=== PATIENT | male | born 1960 | race Caucasian/White ===

== ENCOUNTER 2018-04-03 00:38 | Outpatient (CLI) | payer MEDICARE, SELFPAY ==
--- NOTE | 2018-04-03 08:15 | MERGEMPI_ITS ---
*[facility]* *[facility]* [address] [place] [address] Myocardial Perfusion Imaging - SPECT Regadenoson Date of study: 04/03/2018 *PATIENT PRESENTATION* Height: 182.9cm (72in) Blood Pressure: Weight: 137.7kg (303lb) BSA: 2.7m^2 Referring physician: Atif Clark Ordering physician: Андрей Coello Impressions: Normal myocardial perfusion and contraction after pharmacological stress. Summary: 1. Myocardial perfusion imaging: The left ventricle is mildly dilated. No myocardial perfusion defects noted. 2. The left ventricular end-systolic volume is 79ml. The calculated left ventricular ejection fraction after stress: 50%. LV global systolic function is low normal. No left ventricular regional motion abnormality. Indication: R07.9. History: REASON FOR VISIT: PT WAS SEEN LAST SUNDAY BY HIS PCP DR COELLO FOR CHEST HEAVINESS AND POUNDING IN HIS CHEST HE DESCRIBES SOME RADIATION UP INTO HIS NECK AND PAIN IN HIS LEFT ARM. CHEST HEAVINESS ALSO ASSOCIATED WITH SOB, NAUSEA AND DIAPHOROSIS. CHEST HEAVINESS HAS OCCURED WITH ACTIVITY AND AT REST. ONE EPISODE PT DID TAKE 1 NITRO SL AND ACHIEVED SOME RELIEF. PATIENT HAS SIGNIFICANT CORONARY ARTERY DISEASE WITH STENTING OF HIS RCA IN 1999 AND AGAIN IN 2010. HIS LAST CARDIAC CATHETERIZATION WAS DONE IN 2012. Risk factors: FATHER IN HIS EARLY 60'S FROM A MASSIVE HEART ATTACK. Family history of coronary artery disease. Hypertension. Diabetes mellitus. Obesity. Dyslipidemia. Cholesterol: 138mg/dl. HDL: 40mg/dl. LDL: 82mg/dl. Triglycerides: 161mg/dl. ALLERGIES: NIGEL INHIBITORS. CODEINE. GABAPENTIN. LISINOPRIL. MEDICATIONS: ACETAMINOPHEN 500 MG DAILY. JARDIANCE 25 MG DAILY. GLIPIZIDE 10 MG DAILY. VITAMIN D 1000 UNITS DAILY. METOPROLOL TARTRATE 50 MG BID. AMLODIPINE BESYLATE 10 MG DAILY. ASPIRIN 325 MG DAILY. METFORMIN HCL ER 500 MG BID. LEVOTHYROXINE 25 MCG DAILY. PAROXETINE HCL 30 MG DAILY. NITROSTAT 0.4 MG SL PRN. Imaging Technique: Protocol: [employer]. Acquisition: Gated SPECT; 1 day - rest/stress. The patient was imaged in the supine position. Attenuation correction used. Isotope administration: - Rest. Tc[99m]-sestamibi. Dose: 15.5mCi. Injection time: 08:20 AM. Injection to stress time: 00:45. - Stress. Tc[99m]-sestamibi. Dose: 46mCi. Injection time: 09:55 AM. 1-2 min before end of exercise Baseline ECG: SINUS BRADYCARDIA. 1 DEGREE AV BLOCK. MO 0.22 SECONDS. HR 57 BPM. Normal sinus rhythm with 1degrees AV block. Stress protocol: +--------+--+ +---------+ + !Stage !HR!BP (mmHg) !Symptoms !Comments ! +--------+--+ +---------+ + !Baseline!57!124/72 (89)!---------! ! +--------+--+ +---------+ + !1 min !77!126/70 (89)!---------!Inject Regadenoson.! +--------+--+ +---------+ + !2 min !--! !Nausea ! ! +--------+--+ +---------+ + !3 min !73!134/72 (93)!---------! ! +--------+--+ +---------+ + !4 min !--! !Subsiding! ! +--------+--+ +---------+ + !5 min !--! !Resolved ! ! +--------+--+ +---------+ + !6 min !67!116/66 (83)!---------! ! +--------+--+ +---------+ + * Stress results: The rate-pressure product for the peak heart rate and blood pressure was 9782mm Hg/min. Stress ECG: STRESS TEST ENDED IN 6 MINUTES & 45 SECONDS. PATIENT EXPERIENCED NOT SIDE EFFECTS FROM LEXISCAN INJECTION. NORMAL HEART RATE AND BLOOD PRESSURE RESPONSE TO LEXISCAN INJECTION NO ECTOPY NO ANGINA NO SIGNIFICANT ST SEGMENT CHANGES. Myocardial perfusion: Imaging information: gated. The image quality was good. The left ventricle is mildly dilated. No myocardial perfusion defects noted. Ventricular Function (Wall Motion): The left ventricular end-systolic volume is 79ml. The calculated left ventricular ejection fraction after stress: 50%. LV global systolic function is low normal. No left ventricular regional motion abnormality. Study data: Atif Clark MD supervised and was readily available during the procedure. This study was interpreted by [facility]. Study status: Routine. Consent: The risks, benefits, and alternatives to the procedure were explained to the patient and informed consent was obtained. Procedure: Initial setup. A baseline ECG was recorded. Surface ECG leads and manual cuff blood pressure measurements were monitored. Heart sounds: Normal. Lung sounds: Normal. Regadenoson stress test. Stress testing was performed, with regadenoson by intravenous bolus, for a total dose of 0.4mgover 10.00sec, followed by a 5ml saline flush. The infusion was terminated due to per protocol. Study completion: All catheters inserted during the procedure were removed. The patient tolerated the procedure well and was discharged from the lab. Discharge: The patient left the laboratory in stable condition. Birthdate: Patient birthdate: 1960. Sex: Gender: male. Study date: Study date: 04/03/2018. Study time: 12:30 PM. Signature Documentation: - The imaging portion of this study was interpreted by Nuclear Earth Boring Machine Operator Atif Clark MD. - The imaging portion of this study was interpreted by Nuclear Radiologist Mariano Mccall MD. - The Stress ECG portion of this study was interpreted by Atif Clark MD. Electronically signed by Atif Clark 04/03/2018 13:22
== END 2018-04-03 00:58 ==
PROVIDERS: PCP Internal Medicine; Visit Provider Family Medicine
DX: R07.9 Chest pain, unspecified (principal); I25.10 Atherosclerotic heart disease of native coronary artery without angina pectoris; Z95.5 Presence of coronary angioplasty implant and graft; I10 Essential (primary) hypertension; E11.9 Type 2 diabetes mellitus without complications; E78.5 Hyperlipidemia, unspecified; Z82.49 Family history of ischemic heart disease and other diseases of the circulatory system
CPT/HCPCS: 78452; 93016; 93018; 93017

== ENCOUNTER → 2018-05-09 09:12 | Outpatient (BNVA) | payer MEDICARE, SELFPAY | PROVIDERS: PCP Internal Medicine; Visit Provider Internal Medicine Cardiovascular Disease | DX: I25.10 Atherosclerotic heart disease of native coronary artery without angina pectoris (principal); Z95.818 Presence of other cardiac implants and grafts; I10 Essential (primary) hypertension; E11.9 Type 2 diabetes mellitus without complications; Z79.84 Long term (current) use of oral hypoglycemic drugs; E78.5 Hyperlipidemia, unspecified | CPT/HCPCS: 99214 ==

== ENCOUNTER 2018-06-16 10:06 | Emergency (ER) | payer MEDICARE, SELFPAY ==
[2018-06-16 10:23] VITALS: BP 144/79; PULSE 66; RESP 16; TEMP 36.3; O2SAT 97
--- NOTE | 2018-06-16 10:43 | DI.CT_ITS ---
SYMPTOM/DIAGNOSIS: FALL, HEADACHE NONCONTRAST HEAD CT: No intracranial hemorrhage or skull fracture is seen. There is mild atrophy. The ventricles are normal in size. There are mild patches of the white matter consistent with small vessel disease. The visualized portions of the sinuses and mastoid air cells appear clear. IMPRESSION: No acute abnormality. CT CERVICAL SPINE: There is no evidence of fracture or subluxation. The exam is somewhat limited by the patient's body habitus. There are degenerative disc changes raised at C5-6, and C6-7. There is bilateral neuroforaminal narrowing at C6-7. IMPRESSION: Degenerative changes. No acute abnormality.
--- NOTE | 2018-06-16 10:43 | DI.RAD_ITS ---
SYMPTOM/DIAGNOSIS: FALL LUMBAR SPINE: The exam is limited by the patient's body habitus. There is a transitional type vertebral body at the lumbosacral junction. There are prominent end plate osteophytes. No fracture, spondylolysis or spondylolisthesis seen. IMPRESSION: Degenerative changes. No acute abnormality.
--- NOTE | 2018-06-16 10:43 | DI.RAD_ITS ---
SYMPTOM/DIAGNOSIS: FALL PELVIS AND LEFT HIP: No fracture or dislocation is seen. There is bilateral acetabular spurring, left greater than right. Hip joint spaces are well maintained. Degenerative changes are noted in the lower lumbar spine and both SI joints. IMPRESSION: Degenerative changes. No acute abnormality.
[2018-06-16] MEDS: Acetaminophen 500 MG TAB 1000 MG PO (10:52)
[2018-06-16] MEDS: Loperamide 2 MG CAP PO (10:53)
--- NOTE | 2018-06-16 11:11 | W.ED.GENAD ---
Discharge Plan Disposition Patient Disposition: HOME Condition: Stable Discharge Details Chief Complaint: HeadInjury Clinical Impression: Concussion, Contusion of multiple sites Primary Care Provider: Андрей Coello ED Provider: Marlon Pond Home Meds and New Rx's Prescriptions: New oxycodone-acetaminophen [Percocet] 5-325 mg tablet 1 tab PO Q6H PRN (Reason: pain) Qty: 10 RF: 0 Continue fluocinonide-emollient [Fluocinonide-E] 60 GM cream 60 gm Topical PRN PRNQty: 1 RF: 0 levothyroxine 25 MCG tablet 25 mcg PO DAILY RF: 0 atorvastatin 80 MG tablet 80 mg PO DAILY Qty: 90 RF: 2 amlodipine 10 MG tablet 10 mg PO DAILY Qty: 60 RF: 2 metoprolol tartrate 50 MG tablet 50 mg PO BID RF: 0 nitroglycerin [Nitrostat] 0.4 MG tablet, sublingual 0.4 mg Sublingual PRN PRNRF: 0 paroxetine HCl [Paxil CR] 37.5 MG tablet extended release 24 hr 37.5 mg PO QAM RF: 0 metformin 500 MG tablet extended release 24 hr 1,000 mg PO BID RF: 0 aspirin 325 MG tablet 325 mg PO DAILY RF: 0 docusate sodium [Colace] 100 MG capsule 100 mg PO BID Qty: 60 RF: 0 acetaminophen [Tylenol Extra Strength] 500 mg Tablet 500 mg PO Q8H PRN PRNRF: 0 tamsulosin [Flomax] 0.4 mg Capsule 0.4 mg PO DAILY RF: 0 cholecalciferol (vitamin D3) [Vitamin D3] 1,000 unit Capsule 1,000 unit PO DAILY RF: 0 Discharge Instructions Instructions: Concussion (ED), Contusion in Adults (ED) Additional Instructions: Feel free to return to the emergency department for any new or significant worsening of symptoms. Otherwise take your medication as prescribed and follow-up with your primary care provider for reassessment. It is important that you get plenty of rest and reduce any strenuous activities over the next couple days and then slowly advance activity as tolerated. If any activity causes headaches return to rest again Referrals: Андрей Coello [Primary Care Provider] - (Keep your appointment as previously scheduled) Discharge Data Discharge Date/Time-TO BE ENTERED AT DEPARTURE: 06/16/18 12:40 Medical Decision Making Patient presenting to the emergency department for chief complaint of headache and back pain after a fall. Patient states approximately 3 days ago he slipped and fell landing on his left hip, back, and striking his head. He states since then he has had intermittent dizziness, tinnitus, left frontal headache, and some photophobia. He does state some nausea, and today developed a little diarrhea which he states he has had in the past. Physical exam does show some tenderness to the lumbar spine and left hip without specific step-off or deformity and otherwise normal neurological exam except for some photophobia and pain elicited with left lateral gaze to the left eye. Plan to check CT imaging of the head for rule out of intracranial hemorrhage and plain film imaging of the lumbar spine left hip and pelvis. Pending results patient given acetaminophen and patient is requesting Imodium for diarrhea. Patient denies any abdominal pain fever chills so I do not feel that any abdominal workup is needed at this time but will continue to monitor. Pending results patient continued had discomfort and so gave patient ibuprofen and lidocaine patch . Review of results that shows no intracranial abnormality, no no cervical fracture, no other findings of the lumbar spine hip or pelvis. Patient was reassessed and continues remained stable with no new or worsening symptoms. Given this I feel the patient has concussion with multiple contusions. Disc discussed risk versus benefit of pain medication therapy which patient states ibuprofen did not help either. Patient did receive limited supply of narcotic pain medication and he states he has follow-up appointment with his primary care provider in approximately 1 week. Patient was encouraged to return for any new or significant worsening of his symptoms. After discussion of diagnosis and plan of care patient has no further needs, questions, or concerns and states clear understanding to return to the emergency department for any worsening symptoms. HPI General Mode of arrival: ambulatory. Date/Time Provider Initiated Documentation: 06/16/18 10:25. Limitations to Documentation: no limitations. Information obtained by: patient and RN notes reviewed. History of Present Illness 58 year old M presents to the emergency department with the chief complaint of Fall with headache and back pain, described as moderate, Quality is described as aching and sharp, and is localized to the head and back. Patient started experiencing this day(s) (3) and it has been constant. No relieving factors improve symptom(s), Movement worsens symptoms . Patient did receive the following treatments prior to arrival, none Related Data Home Medications Medication Instructions Recorded Confirmed metoprolol tartrate 50 mg PO BID 12/22/12 06/16/18 nitroglycerin [Nitrostat] 0.4 mg SUBLINGUAL PRN PRN 12/22/12 06/16/18 paroxetine HCl [Paxil CR] 37.5 mg PO QAM 12/22/12 06/16/18 fluocinonide-emollient 60 gm TOPICAL PRN PRN #1 script 05/21/13 06/16/18 [Fluocinonide-E] metformin 1,000 mg PO BID 05/20/14 06/16/18 aspirin 325 mg PO DAILY 09/18/14 06/16/18 docusate sodium [Colace] 100 mg PO BID #60 cap 02/03/15 06/16/18 levothyroxine 25 mcg PO DAILY tab-cap 02/25/15 06/16/18 amlodipine 10 mg PO DAILY #60 tab-cap 05/04/17 06/16/18 atorvastatin 80 mg PO DAILY #90 tab-cap 05/04/17 06/16/18 acetaminophen [Tylenol Extra 500 mg PO Q8H PRN PRN 06/16/18 06/16/18 Strength] cholecalciferol (vitamin D3) 1,000 unit PO DAILY 06/16/18 06/16/18 [Vitamin D3] oxycodone-acetaminophen [Percocet] 1 tab PO Q6H PRN #10 tab 06/16/18 tamsulosin [Flomax] 0.4 mg PO DAILY 06/16/18 06/16/18 Previous Rx's Medication Instructions Recorded docusate sodium [Colace] 100 mg PO BID #60 cap 02/03/15 amlodipine 10 mg PO DAILY #60 tab-cap 05/04/17 atorvastatin 80 mg PO DAILY #90 tab-cap 05/04/17 oxycodone-acetaminophen [Percocet] 1 tab PO Q6H PRN #10 tab 06/16/18 Allergies Allergy/AdvReac Type Severity Reaction Status Date / Time NIGEL Inhibitors AdvReac Cough Unverified 06/16/18 10:27 codeine AdvReac Nausea Unverified 06/16/18 10:27 gabapentin AdvReac vision Unverified 06/16/18 10:27 trouble, dizzy,nausea lisinopril AdvReac cough Unverified 06/16/18 10:27 General Stated Complaint: HeadInjury TIFFANI: 3 Review of Systems Constitutional Denies fever(s), Denies frequent falls, Reports headache(s) and Denies poor appetite Eyes Denies loss of vision ENT Reports dizziness and Reports headache(s) Cardiovascular Denies chest pain, Denies syncope, Denies irregular heart rhythm and Denies dyspnea Respiratory Denies dyspnea Gastrointestinal Reports diarrhea, Reports nausea and Denies vomiting Musculoskeletal Reports as per HPI, Denies abnormal gait, Denies numbness and Denies tingling Neurologic Reports as per HPI, Denies abnormal movements, Denies abnormal speech, Denies abnormal gait, Reports dizziness, Denies syncope, Denies frequent falls, Reports headache(s), Denies loss of vision, Denies memory loss, Denies numbness and Denies tingling Psychiatric Denies memory loss PFSH Family History Father Heart disease Medical History CAD (coronary artery disease) Chronic back pain Diabetes mellitus Hyperlipidemia Hypertension WILLIS (obstructive sleep apnea) Spinal stenosis Social History Smoking/Tobacco Use Status: Former Tobacco Use Surgical History Colonoscopy - MAC Coronary Stent Exam Const General: cooperative and no acute distress Nutritional Appearance: overweight Orientation: alert, awake and oriented x3 Limitations: mental status not altered [facility] Head: normal to inspection, no palpable skull fracture, normocephalic and atraumatic Ears: hearing grossly normal bilaterally, external ears normal and TM's normal bilaterally General nose exam: external nose normal Face and sinus: normal facial exam Mouth: oral mucosae normal, lip normal and tongue normal Throat: posterior oropharynx normal, tonsils normal and uvula midline Eyes General: appearance normal, both eyes and all related structures Visual Nguyen: normal visual nguyen by confrontation Alignment and Position: alignment normal Periorbital: periorbital findings normal Eyelids: eyelids normal Conjunctivae: conjunctivae normal Cornea: corneas normal Pupils: PERRL, normal by confrontation and accommodation normal EOM: EOM intact bilaterally (Discomfort is noted with left lateral in the left eye. ) Direct ophthalmoscopy: consensual photophobia Neck Neck: normal visual inspection, full ROM, trachea midline and nontender Resp Effort & Inspection: normal respiratory effort and able to speak in complete sentences Cardio Rate: regular rate Rhythm: regular rhythm Heart Sounds: S1 normal, S2 normal, no click, no gallops, no murmurs and no rubs Back/Spine/Pelvis Cervical Spine: normal cervical lordosis, cervical ROM normal, No pain with cervical ROM and No step off deformity Thoracic/Lumbar Spine: paraspinal tenderness (Left lumbar), lumbar spinal tenderness and other (Mild ecchymosis seen to mid lumbar) Pelvis: no pain with anterior-posterior compression and no pain with lateral compression Neuro General: alert, awake, oriented x3, gait normal, tone normal, moves all extremities, normal light touch, pain and propioception, no meningeal signs, no focal motor deficits and CN's II-XI intact bilaterally Cognition: normal cognition Speech: speech normal Motor: muscle tone normal throughout Coordination: Romberg test normal and Does not sway with eyes open Course Vital Signs Temperature 36.3 C L 06/16/18 10:23 Pulse 66 06/16/18 10:23 Respiratory Rate 16 06/16/18 10:23 Blood Pressure 144/79 H 06/16/18 10:23 Pulse Oximetry 97 06/16/18 10:23 Temperature 36.3 C L 06/16/18 10:23 Temperature Source Temporal Artery Scan 06/16/18 10:23 Pulse 66 06/16/18 10:23 Respiratory Rate 16 06/16/18 10:23 Respiratory Effort Non-Labored 06/16/18 10:26 Blood Pressure 144/79 H 06/16/18 10:23 Blood Pressure Position Sitting 06/16/18 10:23 Pulse Oximetry 97 06/16/18 10:23 Oxygen Delivery Method Room Air 06/16/18 10:23 Oxygen Flow Rate 0 06/16/18 10:23 Pain Level 4 06/16/18 10:23
--- NOTE | 2018-06-16 11:46 | DI.VRAD_ITS ---
EXAM: CT Head Without Intravenous Contrast EXAM DATE/TIME: 06/16/2018 10:46 AM CLINICAL HISTORY: 58 years old, male; Pain and injury or trauma; Fall; Initial encounter; Blunt trauma (contusions or hematomas); Consciousness not specified; Headache; Headache not specified; Neck pain TECHNIQUE: Axial computed tomography images of the head/brain without intravenous contrast. Coronal and sagittal reformatted images were created and reviewed. COMPARISON: MRI - BRAIN WO CONTRAST 07/17/2012 7:08 PM FINDINGS: Brain: Normal. No hemorrhage. No significant white matter disease. No edema. Ventricles: Normal. No ventriculomegaly. Bones/joints: Normal. No acute fracture. Sinuses: Normal as visualized. No acute sinusitis. Mastoid air cells: Normal as visualized. No mastoid effusion. Soft tissues: Normal. IMPRESSION: No evidence for acute intracranial abnormality. EXAM: CT Cervical Spine Without Intravenous Contrast EXAM DATE/TIME: 06/16/2018 10:46 AM CLINICAL HISTORY: 58 years old, male; Pain and injury or trauma; Fall; Initial encounter; Blunt trauma (contusions or hematomas); Consciousness not specified; Headache; Headache not specified; Neck pain TECHNIQUE: Axial computed tomography images of the cervical spine without intravenous contrast. Coronal and sagittal reformatted images were created and reviewed. COMPARISON: MRI - BRAIN WO CONTRAST 07/17/2012 7:08 PM. Report unavailable. FINDINGS: Vertebrae: No acute fracture. Normal alignment. Discs/Spinal canal/Neural foramina: Cervical spondylosis with lower cervical stenosis. Soft tissues: Unremarkable. Lungs: Lung apices are normal. Vasculature: Bilateral calcified carotid plaque. IMPRESSION: No evidence for fracture. Spondylosis with lower cervical stenosis. COMMENT: Preliminary interpretation is based on receipt of 991 image(s). A final report will be issued subsequently. Dictated and Authenticated by: Leia White MD. Ordering:JOHN HEMPHILL MD
--- NOTE | 2018-06-16 11:48 | DI.VRAD_ITS ---
EXAM: XR Left Hip with Pelvis when Performed, 2 or 3 Views EXAM DATE/TIME: 06/16/2018 10:46 AM CLINICAL HISTORY: 58 years old, male; Pain and injury or trauma; Fall; Initial encounter; Blunt trauma (contusions or hematomas); Left; Hip; Hip pain; Left hip TECHNIQUE: XR Left hip with pelvis when performed, 2 or 3 views COMPARISON: No relevant prior studies available. FINDINGS: Bones/joints: Mild lower lumbar spondylosis. Bony alignment is anatomic without evidence for fracture or dislocation. Soft tissues: Normal. IMPRESSION: No evidence for fracture or dislocation. COMMENT: Preliminary interpretation is based on receipt of 2 image(s). A final report will be issued subsequently. Dictated and Authenticated by: Leia White MD. Ordering:JOHN HEMPHILL MD
--- NOTE | 2018-06-16 11:50 | DI.VRAD_ITS ---
EXAM: XR Lumbar Spine, 4 or 5 Views EXAM DATE/TIME: 06/16/2018 10:46 AM CLINICAL HISTORY: 58 years old, male; Pain; Low back pain; Patient HX: Pain after fall today TECHNIQUE: XR of the lumbar spine, 4 or 5 views. COMPARISON: CR LUMBAR SPINE COMPLETE 10/13/2014 7:15 PM FINDINGS: Vertebrae: There is moderate lumbar spondylosis. Vasculature: Atherosclerotic change noted in the vasculature. Soft tissues: Normal. IMPRESSION: Spondylosis. No evidence for fracture. COMMENT: Preliminary interpretation is based on receipt of 5 image(s). A final report will be issued subsequently. Dictated and Authenticated by: Leia White MD. Ordering:JOHN HEMPHILL MD
[2018-06-16] MEDS: Ibuprofen 400 MG TAB PO (12:01)
[2018-06-16] MEDS: Lidocaine 5% Patch 1 PATCH TP (12:02)
[2018-06-16 12:22] VITALS: BP 121/63; PULSE 69; RESP 14; TEMP 36.6; O2SAT 98
== END 2018-06-16 12:40 | disposition home or self-care (01) ==
LOC: ER 12:42
PROVIDERS: Emergency Provider Nurse Practitioner Family; PCP Family Medicine
DX: S06.0X0A Concussion without loss of consciousness, initial encounter (principal); S70.02XA Contusion of left hip, initial encounter; S30.0XXA Contusion of lower back and pelvis, initial encounter; W00.0XXA Fall on same level due to ice and snow, initial encounter; R51 Headache; E11.9 Type 2 diabetes mellitus without complications; Z79.84 Long term (current) use of oral hypoglycemic drugs; I10 Essential (primary) hypertension; R42 Dizziness and giddiness
CPT/HCPCS: 99284; 70450; 72110; 72125; 73502

== ENCOUNTER 2019-03-31 12:53 | Outpatient (REF) | payer MEDICARE, SELFPAY ==
[2019-03-31 18:47] LABS: COMMENT (LAB VIEW ONLY) 59.24 mg/dL; Microalb ug/mg Crea 8.4 ug/mg Cr
[2019-03-31 18:58] LABS: ALT 41 U/L (16-63); AST 21 U/L (15-37); Albumin 4.2 g/dL (3.4-5.0); Alkaline Phosphatase 124 U/L (46-116); Anion Gap 9.8 mmol/L (3-11); BUN 15 mg/dL (7-18); CO2 25.2 mmol/L (21.0-32.0); CREATININE 0.75 mg/dL (0.70-1.30); Calcium 8.8 mg/dL (8.5-10.1); Chloride 104 mmol/L (98-107); Glucose 110 mg/dL (70-100); Potassium 4.4 mmol/L (3.5-5.1); Sodium 139 mmol/L (136-145); TSH (W/Ref FT4) 2.23 uIU/mL (0.36-3.74); Total Protein 7.2 g/dL (6.4-8.2)
== END 2019-03-31 13:13 ==
LOC: NCHCN 12:53
PROVIDERS: PCP Family Medicine; Visit Provider Family Medicine
DX: E03.9 Hypothyroidism, unspecified (principal); E11.9 Type 2 diabetes mellitus without complications
CPT/HCPCS: 80053; 82043; 82570; 84443

== ENCOUNTER → 2019-05-08 09:03 | Outpatient (BNVA) | payer MEDICARE, SELFPAY | PROVIDERS: PCP Family Medicine; Referring Provider Internal Medicine; Visit Provider Internal Medicine Cardiovascular Disease | DX: I25.10 Atherosclerotic heart disease of native coronary artery without angina pectoris (principal); Z79.899 Other long term (current) drug therapy; I10 Essential (primary) hypertension; E78.5 Hyperlipidemia, unspecified; E11.9 Type 2 diabetes mellitus without complications; Z79.84 Long term (current) use of oral hypoglycemic drugs | CPT/HCPCS: 99204; 99215 ==

== ENCOUNTER 2019-09-13 08:56 | Outpatient (CLI) | payer MEDICARE, SELFPAY ==
[2019-09-16 13:41] LABS: Helicobacter pylori Ag, Feces Negative (Negative)
== END 2019-09-13 09:16 ==
LOC: NCHCN 09:03 → LBO 09:39 → LBN 09:58
PROVIDERS: PCP Family Medicine; Visit Provider Family Medicine
DX: K30 Functional dyspepsia (principal)
CPT/HCPCS: 87338

== ENCOUNTER 2020-02-09 01:37 | Outpatient (CLI) | payer MEDICARE, SELFPAY ==
--- NOTE | 2020-02-09 | DI.MRI_ITS ---
EXAM: MR LUMBAR SPINE WO CLINICAL HISTORY: LUMBAR SPINAL STENOSIS, M48.00, INCREASING BACK PAIN, RADIATION DOWN RT LEG. TECHNIQUE: Multiplanar multisequence MRI of the Lumbar spine was performed. COMPARISON: MR MRI - LUMBAR SPINE WO CONTRAST from 02/18/2014 FINDINGS: Bones: The last intervertebral disc space is designated the L5/S1 level for the numbering purpose of this examination. The vertebral body heights are well maintained. Alignment is satisfactory. The si gnal characteristics are unremarkable. Cord: The conus tip ends at the T12 level. It is of normal size and signal intensity. T12-L1: No disc herniations or bulges are present. No central spinal canal or neural foraminal stenos is. L1-2: No disc herniation is present. No central spinal canal or neural foraminal stenosis. L2-3: There is disc desiccation. There is a mild diffuse disc bulge. No central spinal canal or maxim ral foraminal stenosis. L3-4: There is disc desiccation and a mild diffuse disc bulge causing [id number] central spinal canal stenosis which is stable. No right neural foraminal stenosis is present. There is mild left neural foraminal stenosis. L4-5: There is a diffuse disc bulge present. There is disc desiccation. Facet arthropathy and mild hypertrophy of the ligamentum flavum is noted. Stable [id number] central spinal canal stenosis is seen. There is also stable mild bilateral neural foraminal stenosis. L5-S1: No disc herniations or bulges are present. No central spinal canal or neural foraminal stenosi s. Soft tissues: The visualized SI joints and sacrum are well maintained. The paraspinal soft tissues ar e unremarkable. IMPRESSION: Stable multilevel degenerative changes in the lumbar spine as described above. DATA REPOSITORY:
== END 2020-02-09 01:57 ==
PROVIDERS: PCP Family Medicine; Visit Provider Family Medicine
DX: M48.061 Spinal stenosis, lumbar region without neurogenic claudication (principal); M54.16 Radiculopathy, lumbar region
CPT/HCPCS: 72148

== ENCOUNTER 2020-04-20 09:57 | Outpatient (REF) | payer MEDICARE, SELFPAY ==
[2020-04-20 19:21] LABS: Anion Gap 9.5 mmol/L (3-11); BUN 19 mg/dL (7-18); CO2 25.5 mmol/L (21.0-32.0); CREATININE 0.88 mg/dL (0.70-1.30); Calcium 9.2 mg/dL (8.5-10.1); Chloride 102 mmol/L (98-107); Glucose 126 mg/dL (74-106); Potassium 4.5 mmol/L (3.5-5.1); Sodium 137 mmol/L (136-145); TSH (W/Ref FT4) 2.62 uIU/mL (0.36-3.74)
== END 2020-04-20 10:17 ==
LOC: NCHCN 09:57
PROVIDERS: PCP Family Medicine; Visit Provider Family Medicine
DX: E03.9 Hypothyroidism, unspecified (principal); E11.9 Type 2 diabetes mellitus without complications
CPT/HCPCS: 80048; 84443

== ENCOUNTER 2020-07-29 14:40 | Emergency (ER) | payer MEDICARE, SELFPAY ==
[2020-07-29] VITALS (31 sets, daily range): BP systolic 112–165; BP diastolic 56–82; PULSE 55–78; RESP 10–25; TEMP 36.7; O2SAT 92–98
--- NOTE | 2020-07-29 14:30 | RT.EKG_ITS ---
APPROVED REPORT Exam: Resting ECG Patient Location: E HR:68 bpm ECG Measurements Heart Rate 68 AXIS IA [id number] P [id number] QRSd 103 QRS 9 QT 426 T 28 QTc 454 Conclusion Poor baseline, repeated
--- NOTE | 2020-07-29 14:45 | RT.EKG_ITS ---
APPROVED REPORT Exam: Resting ECG Patient Location: E HR:65 bpm ECG Measurements Heart Rate 65 AXIS IL 195 P 58 QRSd 98 QRS 9 QT 410 T 34 QTc 427 Conclusion Sinus rhythm...normal P axis, V-rate 60- 99
--- NOTE | 2020-07-29 15:00 | DI.CT_ITS ---
EXAM: CT HEAD CERVICAL SPINE WO CLINICAL HISTORY: Fall, headache, Neck pain. TECHNIQUE: Imaging Protocol: Axial computed tomography images with coronal and sagittal reformatted images were created and reviewed COMPARISON: CT CT HEAD CERVICAL SPINE WO from 06/16/2018 FINDINGS: CT Head: Ventricles and Extra axial spaces: Normal in size and morphology for the patient's age. Hemorrhage: None. Cerebral parenchyma: No evidence of acute territorial infarct. Midline shift: None. Brainstem/Cerebellum: Normal. Calvarium: Normal. Visualized Paranasal sinuses/Mastoids: Small mucous retention cyst or polyp in the right maxillary si nus. The remaining visualized paranasal sinuses and mastoid air cells are clear. Soft Tissues: Unremarkable. CT Cervical Spine: The examination is limited due to patient motion artifact. Bones: No acute fracture or subluxation. Degenerative changes are seen in the cervical spine. There is straightening of the normal cervical lordosis is may be due to patient positioning or muscle spasm Soft Tissues: Unremarkable. Lung Apices: Clear. IMPRESSION: 1. No acute intracranial process. 2. No acute fracture or subluxation in the cervical spine. RADIATION DOSE DELIVERED: 1,855.66mGy.cm Total DLP DATA REPOSITORY: All CT scans at this facility are submitted to the National Radiology Data Registry (NRDR) Dose Index Registry (DIR) with the [employer] (A[employer]). RADIATION OPTIMIZATION: All CT scans at this facility use at least one of these dose optimization te chniques: automated exposure control; mA and/or kV adjustment per patient size (includes targeted exa ms where dose is matched to clinical indication); or iterative reconstruction.
--- NOTE | 2020-07-29 15:00 | DI.CT_ITS ---
EXAM: CT CHEST/ABD/PEL W CLINICAL HISTORY: Fall, R rib, RLQ pain TECHNIQUE: Imaging Protocol: Axial computed tomography images with coronal and sagittal reformatted images were created and reviewed CONTRAST MATERIAL: Intravenous: Omnipaque 350 Contrast volume:100 mL Oral: No COMPARISON: CT ABD PELVIS WITH CONTRAST from 08/12/2009 FINDINGS: CHEST: Tracheobronchial tree: Patent where visualized. Mediastinum and Elissa: No dominant adenopathy or fluid collection. Pulmonary parenchyma: No consolidation or dominant measurable mass. No architectural distortion. Ther e is a calcified granuloma in the left upper lobe. There is a 0.6 cm nodule in the medial aspect of the left lower lobe. Pleura: No effusion or pneumothorax. Heart: The heart is not dilated. Moderate coronary artery calcification. No significant pericardial effusion. Aorta: Thoracic aorta non-dilated. Lymph nodes: Within normal limits. Bones:Degenerative changes are seen in the spine.There is a nondisplaced fracture at the anterior lat eral aspect of the left 10th rib. Soft tissues: Unremarkable. ABDOMEN: Liver: There is diffuse decreased attenuation of the liver consistent with fatty infiltration. No me asurable mass. Portal, Superior Mesenteric, and Splenic Veins: Unremarkable. Gallbladder and Biliary Tract: No radiodense calculus or dilation. Pancreas: Normal density, no abnormal calcifications or inflammatory process. Spleen: Normal. Adrenals: No masses seen. Kidneys: Normal size, contour and axis. No radiodense stones or obstructive uropathy. No masses seen. Abdominal Aorta: Abdominal portion non-dilated. Mild atherosclerosis. Bowel: No obstruction or bowel wall thickening. Appendix is unremarkable. Diverticulosis of the desce nding and sigmoid colon but no evidence of acute diverticulitis. Peritoneal Cavity: No ascites, collection or mesenteric inflammatory response. No free air. Lymph Nodes: Within normal limits. Bones: Degenerative changes in the spine. No acute fracture. Soft Tissues: Unremarkable. PELVIS: Bladder: Symmetric distention, no gross wall thickening. Reproductive Organs: Unremarkable as visualized. Lymph Nodes: Within normal limits. Bones: Degenerative changes. No acute fracture. IMPRESSION: 1. No acute abdominal or pelvic process. 2. Nondisplaced fracture of the anterolateral aspect of the left 10th rib near the costochondral junc tion. 3. 6 mm noncalcified pulmonary nodule in the left lower lobe. A follow-up CT scan of the chest in 12 months is recommended for re-evaluation. RADIATION DOSE DELIVERED: 2,316.51mGy.cm Total DLP DATA REPOSITORY: All CT scans at this facility are submitted to the National Radiology Data Registry (NRDR) Dose Index Registry (DIR) with the [employer] (ACR). RADIATION OPTIMIZATION: All CT scans at this facility use at least one of these dose optimization te chniques: automated exposure control; mA and/or kV adjustment per patient size (includes targeted exa ms where dose is matched to clinical indication); or iterative reconstruction.
--- NOTE | 2020-07-29 15:12 | ED.GENADUL_ITS ---
Discharge Plan Disposition Patient Disposition: HOME Condition: Improving Discharge Details Clinical Impression: Fracture of rib of left side, Degenerative arthritis of cervical spine Primary Care Provider: Андрей Coello ED Provider: Gio Ambrose Home Meds and New Rx's Prescriptions: Continued Jardiance 25 mg tablet 25 mg PO DAILY RF: 0 amlodipine 5 mg tablet 5 mg PO DAILY RF: 0 aspirin [Adult Low Dose Aspirin] 81 mg tablet,delayed release (DR/EC) 81 mg PO DAILY RF: 0 paroxetine HCl 30 mg tablet 30 mg PO DAILY RF: 0 triamcinolone acetonide 0.1 % cream 1 applic TP BID RF: 0 ketoconazole 2 % cream 1 applic TP BID PRNRF: 0 metoprolol succinate 50 mg capsule,sprinkle,ER 24hr 50 mg PO DAILY Qty: 90 RF: 3 fluocinonide-emollient [Fluocinonide-E] 60 GM cream 60 gm Topical PRN PRNQty: 1 RF: 0 levothyroxine 25 MCG tablet 25 mcg PO DAILY RF: 0 atorvastatin 80 MG tablet 80 mg PO DAILY Qty: 90 RF: 2 candesartan 4 mg tablet 4 mg PO DAILY Qty: 90 RF: 3 nitroglycerin [Nitrostat] 0.4 MG tablet, sublingual 0.4 mg Sublingual PRN PRNRF: 0 metformin 500 MG tablet extended release 24 hr 1,000 mg PO BID RF: 0 acetaminophen [Tylenol Extra Strength] 500 mg Tablet 500 mg PO Q8H PRN PRNRF: 0 tamsulosin [Flomax] 0.4 mg Capsule 0.4 mg PO DAILY RF: 0 cholecalciferol (vitamin D3) [Vitamin D3] 1,000 unit Capsule 1,000 unit PO DAILY RF: 0 Discharge Instructions Instructions: Rib Fracture (ED) Additional Instructions: We will ask our care management team to make you a follow-up appointment in clinic for recheck. Continue your regularly prescribed medications. You may use the provided hydrocodone as needed for severe or breakthrough pain, but do not take with Tylenol as it contains Tylenol. Return for difficulty breathing, increasing pain, or any other acute concerns. Discharge Data Discharge Date/Time-TO BE ENTERED AT DEPARTURE: 07/29/20 18:30 Medical Decision Making 60-year-old male who presents on referral from primary care clinic. He has a number of complaints, which she feels stems from a fall that he had approximately 4 weeks ago. At that time he slipped and fell landing on his back and striking his head. He states that he was dazed but did not have a loss of consciousness. He seemed to recover from this but has had some intermittent pains. He presented to clinic today where he complained of 3 to 4 days of persistent dull, achy headache. Neck pain. Left arm paresthesias but no weakness, clumsiness, or numbness. Complains of right lower quadrant abdominal pain is worse with movement. He presents to ER initially hypotensive and then corrects to 129/65, pulse is 70, he is afebrile and oxygenating normally. Differential diagnosis is broad. Patient IV access established, given parenteral analgesia and fluids, referred for laboratory testing and CT images. Labs reveal an unremarkable CBC, chemistries that are within normal limits with exception of total bili of 1.4, normal LFTs, negative troponin. CT images. Head CT without acute intracranial abnormality. CT scan of the cervical spine without evidence of fracture. Multilevel degenerative changes noted. CT chest with lateral left 10th rib fracture present. No acute findings in the abdomen and pelvis. Patient's pain is improving. He states he has tolerated hydrocodone in the past without difficulty and will offer him a small number if needed for excessive pain at home. He was counseled and consented on the use of narcotics. Stable and improved at this time. I discussed with him that he may have mild radicular symptoms given known degenerative disease of the neck. He may follow-up with primary care in the office for recheck. Lab Data Lab results reviewed: Yes I reviewed the patient's lab results. Labs: Laboratory Results - last 24 hr 07/29/20 07/29/20 15:00 15:00 WBC 6.90 RBC 5.10 Hgb 14.2 Hct 42.8 MCV 83.9 MCH 27.8 MCHC 33.2 RDW 12.9 Plt Count 163 MPV 10.8 Immature Gran % 0.3 Neutrophils % 61.8 Lymphocytes % 30.6 Monocytes % 5.5 Eosinophils % 1.4 Basophils % 0.4 Nucleated RBC % 0 Absolute Neutrophils 4.26 Absolute Lymphocytes 2.11 Absolute Monocytes 0.38 Absolute Eosinophils 0.10 Absolute Basophils 0.03 Sodium 139 Potassium 3.9 Chloride 102 Carbon Dioxide 27.2 Anion Gap 9.8 BUN 14 Creatinine 0.83 Estimated GFR/1.73 m2 >= 60.00 Glucose 101 Calcium 9.2 Magnesium 2.1 Total Bilirubin 1.4 H AST 26 ALT 48 Alkaline Phosphatase 110 Troponin I < 0.05 Total Protein 7.4 Albumin 4.3 HPI General Mode of arrival: ambulatory . Date/Time Provider Initiated Documentation: 07/29/20 16:07 . Limitations to Documentation: no limitations . Information obtained by: patient . History of Present Illness 60 year old M presents to the emergency department with the chief complaint of 3 days of pain, fell 3 weeks ago, described as moderate, Quality is described as dull and constant, and is localized to the neck, chest, abdomen, left and right. Patient reports no radiation. Patient started experiencing this day(s) and it has been intermittent. Rest improves symptom(s), Movement worsens symptoms . Patient notes headaches; denies chest pain, nausea/vomiting and shortness of breath. Patient did receive the following treatments prior to arrival, none Related Data Home Medications Medication Instructions Recorded Confirmed nitroglycerin [Nitrostat] 0.4 mg SUBLINGUAL PRN PRN 12/22/12 07/29/20 fluocinonide-emollient 60 gm TOPICAL PRN PRN #1 script 05/21/13 07/29/20 [Fluocinonide-E] metformin 1,000 mg PO BID 05/20/14 07/29/20 levothyroxine 25 mcg PO DAILY tab-cap 02/25/15 07/29/20 atorvastatin 80 mg PO DAILY #90 tab-cap 05/04/17 07/29/20 acetaminophen [Tylenol Extra 500 mg PO Q8H PRN PRN 06/16/18 07/29/20 Strength] cholecalciferol (vitamin D3) 1,000 unit PO DAILY 06/16/18 07/29/20 [Vitamin D3] tamsulosin [Flomax] 0.4 mg PO DAILY 06/16/18 07/29/20 amlodipine 5 mg tablet 5 mg PO DAILY 05/08/19 07/29/20 aspirin 81 mg tablet,delayed 81 mg PO DAILY 05/08/19 07/29/20 release empagliflozin 25 mg tablet 25 mg PO DAILY 05/08/19 07/29/20 ketoconazole 2 % topical cream 1 applic TP BID PRN 05/08/19 05/08/19 metoprolol succinate 50 mg capsule 50 mg PO DAILY #90 cap 05/08/19 07/29/20 sprinkle, ext. release 24 hr paroxetine HCl 30 mg tablet 30 mg PO DAILY 05/08/19 07/29/20 triamcinolone acetonide 0.1 % 1 applic TP BID 05/08/19 07/29/20 topical cream candesartan 4 mg tablet 4 mg PO DAILY #90 tab 05/20/20 07/29/20 Previous Rx's Medication Instructions Recorded atorvastatin 80 mg PO DAILY #90 tab-cap 05/04/17 metoprolol succinate 50 mg capsule 50 mg PO DAILY #90 cap 05/08/19 sprinkle, ext. release 24 hr candesartan 4 mg tablet 4 mg PO DAILY #90 tab 05/20/20 Allergies Allergy/AdvReac Type Severity Reaction Status Date / Time NIGEL Inhibitors AdvReac Cough Unverified 07/29/20 14:47 codeine AdvReac Nausea Unverified 07/29/20 14:47 gabapentin AdvReac vision Unverified 07/29/20 14:47 trouble, dizzy,nausea lisinopril AdvReac cough Unverified 07/29/20 14:47 General Stated Complaint: [employer] TIFFANI: 3 Review of Systems Narrative: Fell 3 weeks ago. Complains of head/neck/back/right chest/right lower quadrant abdominal pain. Feels left arm tingly but no weakness or clumsiness. 8 systems reviewed and otherwise negative [facility] Medical History (Updated 07/29/20 @ 18:09 by Gio Ambrose MD) CAD (coronary artery disease) Candidal intertrigo Chronic back pain Diabetes mellitus Diabetic peripheral neuropathy Hyperlipidemia Hypertension WILLIS (obstructive sleep apnea) Spinal stenosis Surgical History Colonoscopy - MAC Coronary Stent x3 Family History Father Heart disease Social History Smoking/Tobacco Use Status: Former Tobacco Use Quit Date: 07/23/97 Tobacco: How many years used: 29 Smoking risk assessment performed?: Yes Alcohol Intake: former Year quit: 1997 Drug use: Daily Substance use type: marijuana Do you feel safe at home: Yes Do you feel safe in your relationship?: Yes Exam Narrative Exam Narrative: GEN: awake, alert, oriented 3. Pleasant, well groomed, interactive. HEAD: Normocephalic, atraumatic ENT: Mucous membranes moist, oropharynx unremarkable but partially edentulous, External ear exam unremarkable EYES: PERRL, EOMI NECK: Full ROM, no KOSTA, no menigismus. Minimal posterior tenderness to palpation. No step-off or deformity. CHEST/RESP: Nontender, clear to auscultation bilateral, no wheeze/rhonchi/rales CARDIOVASCULAR: RRR, no murmur, rub theresa. 2+ Rad pulse bilateral ABDOMEN: Soft, minimal right lower quadrant tenderness, no mass. +Bowel sounds EXT: Full ROM, no edema, no rash Neuro: Grossly normal neurologic exam, conversant, interactive. Cranial nerves II through XII intact. Normal speech. Patient is able to make the okay sign, cross long finger over index, touch thumb to pinky demonstrating normal motor function of bilateral hands. Psych: Speech fluent, thoughts congruent, affect normal Course Vital Signs Vital signs: Vital Signs Temperature 36.7 C 07/29/20 14:40 Pulse 70 07/29/20 14:40 Respiratory Rate 18 07/29/20 14:40 Blood Pressure 165/78 H 07/29/20 14:40 Pulse Oximetry 96 07/29/20 14:40 Temperature 36.7 C 07/29/20 14:40 Temperature Source Temporal Artery Scan 07/29/20 14:40 Pulse 70 07/29/20 14:40 Respiratory Rate 18 07/29/20 14:48 Respiratory Effort Non-Labored 07/29/20 14:48 Respiratory Depth Normal 07/29/20 14:48 Respiratory Pattern Normal 07/29/20 14:48 Blood Pressure 165/78 H 07/29/20 14:40 Blood Pressure Position Sitting 07/29/20 14:40 Pulse Oximetry 96 07/29/20 14:40 Oxygen Delivery Method Room Air 07/29/20 14:40 Oxygen Flow Rate 0 07/29/20 14:40 Pain Level 8 07/29/20 14:40
[2020-07-29] MEDS: Normal Saline 1,000 ML 1000 ML IV (15:24)
[2020-07-29] MEDS: ACETAMINOPHEN 1,000 MG/100 ML BTL 400 MG IVPB (15:24)
[2020-07-29 15:42] LABS: Abs Immature Grans 0.02 10^3/uL (0.0-0.06); Absolute Basophil Count 0.03 10^3/uL (0.0-0.2); Absolute Lymphocyte Count 2.11 10^3/uL (1.2-3.4); Absolute Monocyte Count 0.38 10^3/uL (0.1-0.8); Absolute Neutrophil Count 4.26 10^3/uL (1.2-6.7); Basophils % 0.4; Eosinophils % 1.4; HCT 42.8 % (40.0-50.0); HGB 14.2 g/dL (13.5-17.5); Immature Grans % 0.3; Lymphocytes % 30.6; MCH 27.8 pg (27.0-33.0); MCHC 33.2 % (32.0-36.0); MCV 83.9 fL (80-95); MPV 10.8 fL (8.0-11.0); Monocytes % 5.5; Neutrophils % 61.8; Nucleated RBC 0 %; Platelet Count 163 10^3/uL (130-400); RDW 12.9 % (11.8-14.1); RDW-SD 39.8 fL
[2020-07-29 15:55] LABS: ALT 48 U/L (16-63); AST 26 U/L (15-37); Albumin 4.3 g/dL (3.4-5.0); Alkaline Phosphatase 110 U/L (46-116); Anion Gap 9.8 mmol/L (3-11); BUN 14 mg/dL (7-18); Bilirubin, Total 1.4 mg/dL (0.2-1.0); CO2 27.2 mmol/L (21.0-32.0); CREATININE 0.83 mg/dL (0.70-1.30); Calcium 9.2 mg/dL (8.5-10.1); Chloride 102 mmol/L (98-107); Glucose 101 mg/dL (74-106); Magnesium 2.1 mg/dL (1.8-2.4); Potassium 3.9 mmol/L (3.5-5.1); Sodium 139 mmol/L (136-145); Total Protein 7.4 g/dL (6.4-8.2)
[2020-07-29 16:09] LABS: Troponin I < 0.05 ng/mL (<0.06)
[2020-07-29] MEDS: Omnipaque 350 MG/ML 100 ML BTL IJ (17:08)
[2020-07-29] MEDS: Normal Saline - Diluent 50 ML VIAL IV (17:09)
[2020-07-29] MEDS: Normal Saline Flush 10 ML SYR IVP (17:09)
[2020-07-29] MEDS: Ketorolac 15 MG/ML VIAL IVP (17:34)
--- NOTE | 2020-07-29 17:50 | DI.VRAD_ITS ---
PROCEDURE INFORMATION: Exam: CT Head Without Contrast Exam date and time: 07/29/2020 4:57 PM Age: 60 years old Clinical indication: Headache; Post-traumatic; Other: Pain after fall yesterday TECHNIQUE: Imaging protocol: Computed tomography of the head without contrast. COMPARISON: CT HEAD CERVICAL SPINE WO 06/16/2018 11:13 AM FINDINGS: Brain: No acute large territorial infarction or intracranial hemorrhage. Mild parenchymal volume loss and nonspecific white matter hypodensity, likely chronic microangiopathy. No mass effect or midline shift. Cerebral ventricles: No hydrocephalus. Bones/joints: No displaced calvarial fracture. Paranasal sinuses: Small right maxillary sinus mucous retention cyst. Mastoid air cells: Visualized mastoid air cells are well aerated. Soft tissues: Unremarkable. IMPRESSION: No acute intracranial abnormality. PROCEDURE INFORMATION: Exam: CT Cervical Spine Without Contrast Exam date and time: 07/29/2020 4:57 PM Age: 60 years old Clinical indication: Headache; Post-traumatic; Other: Pain after fall yesterday TECHNIQUE: Imaging protocol: Computed tomography images of the cervical spine without contrast. COMPARISON: CT HEAD CERVICAL SPINE WO 06/16/2018 11:13 AM FINDINGS: Bones/joints: No acute fracture. The vertebral body heights are within normal limits. Straightening of cervical alignment. Discs/Spinal canal/Neural foramina: Multilevel degenerative changes of the cervical spine with disc height loss. No definite osseous high-grade spinal canal stenosis. Lungs: The visualized lung apex is unremarkable. Soft tissues: No prevertebral soft tissue swelling. IMPRESSION: No acute cervical spine fracture. Dictated and Authenticated by: Shala Santoro MD. Ordering:JASON Powers MD
--- NOTE | 2020-07-29 17:50 | DI.VRAD_ITS ---
PROCEDURE INFORMATION: Exam: CT Chest With Contrast; Diagnostic Exam date and time: 07/29/2020 3:13 PM Age: 60 years old Clinical indication: Other: Rlq pain; Other: Fall, rib pain TECHNIQUE: Imaging protocol: Diagnostic computed tomography of the chest with intravenous contrast. COMPARISON: CR RIGHT RIBS PA CXR-3 VIEWS 02/15/2015 11:54 AM FINDINGS: Lungs: Calcified granuloma left upper lobe. Pleural space: Unremarkable. No pneumothorax. No pleural effusion. Heart: Vascular calcifications including coronary artery calcifications. Aorta: Unremarkable. No aortic aneurysm. Lymph nodes: Unremarkable. No enlarged lymph nodes. Bones/joints: Degenerative arthritis in the spine. Nondisplaced fracture of the lateral left 10th rib near the costochondral junction. Soft tissues: Unremarkable. IMPRESSION: 1. Nondisplaced fracture of the lateral left 10th rib near the costochondral junction. PROCEDURE INFORMATION: Exam: CT Abdomen And Pelvis With Contrast Exam date and time: 07/29/2020 3:13 PM Age: 60 years old Clinical indication: Other: Rlq pain; Other: Fall, rib pain TECHNIQUE: Imaging protocol: Computed tomography of the abdomen and pelvis with intravenous contrast. COMPARISON: CR RIGHT RIBS PA CXR-3 VIEWS 02/15/2015 11:54 AM FINDINGS: Liver: Diffuse fatty infiltration of the liver. Gallbladder and bile ducts: Normal. No calcified stones. No ductal dilation. Pancreas: Normal. No ductal dilation. Spleen: Normal. No splenomegaly. Adrenal glands: Normal. No mass. Kidneys and ureters: Normal. No hydronephrosis. Stomach and bowel: Bulky diverticulosis of the descending colon and sigmoid colon. No findings to suggest diverticulitis. Appendix: No evidence of appendicitis. Intraperitoneal space: Unremarkable. No free air. No significant fluid collection. Vasculature: Unremarkable. No abdominal aortic aneurysm. Lymph nodes: Unremarkable. No enlarged lymph nodes. Urinary bladder: Unremarkable as visualized. Reproductive: Unremarkable as visualized. Bones/joints: Degenerative arthritis in the spine and pelvis. Ankylosis of the sacroiliac joints hypertrophic changes anteriorly. Soft tissues: Unremarkable. IMPRESSION: 1. No acute findings in the abdomen and pelvis. 2. Fatty liver. 3. Diverticulosis without evidence of diverticulitis. Dictated and Authenticated by: Sindi Townsend MD. Ordering:JASON Powers MD
--- NOTE | 2020-07-29 18:12 | NUR.NOTE ---
Referral faxed to [facility] for pcp follow up.Nursing Note:
== END 2020-07-29 18:30 | disposition home or self-care (01) ==
PROVIDERS: Emergency Provider Emergency Medicine; PCP Family Medicine
DX: S22.32XA Fracture of one rib, left side, initial encounter for closed fracture (principal); W19.XXXA Unspecified fall, initial encounter; M43.05 Spondylolysis, thoracolumbar region; E11.9 Type 2 diabetes mellitus without complications; Z79.84 Long term (current) use of oral hypoglycemic drugs; I10 Essential (primary) hypertension
CPT/HCPCS: 36415; 74177; 80053; 93005; 96374; 96375; 99285; 70450; 71260; 72125; 83735; 84484; 85025; 93010; 99284; J0131; J1885; J3490

== ENCOUNTER 2020-08-05 14:54 | Outpatient (REF) | payer MEDICARE, SELFPAY ==
[2020-08-05 19:01] LABS: Hemoglobin A1C 7.2 % (<5.7)
[2020-08-05 19:02] LABS: ALT 47 U/L (16-63); AST 24 U/L (15-37); Albumin 4.4 g/dL (3.4-5.0); Alkaline Phosphatase 112 U/L (46-116); Bilirubin, Direct 0.18 mg/dL (0.00-0.20); Bilirubin, Total 1.2 mg/dL (0.2-1.0); Total Protein 7.3 g/dL (6.4-8.2)
== END 2020-08-05 15:14 ==
LOC: NCHCN 14:54
PROVIDERS: PCP Family Medicine; Visit Provider Family Medicine
DX: E11.9 Type 2 diabetes mellitus without complications (principal); R79.89 Other specified abnormal findings of blood chemistry
CPT/HCPCS: 80076; 83036

== ENCOUNTER → 2020-08-31 11:17 | Outpatient (BNVA) | payer MEDICARE, SELFPAY | PROVIDERS: PCP Family Medicine; Referring Provider Family Medicine; Visit Provider Internal Medicine Cardiovascular Disease | DX: I25.119 Atherosclerotic heart disease of native coronary artery with unspecified angina pectoris (principal); I10 Essential (primary) hypertension; E78.5 Hyperlipidemia, unspecified; E11.9 Type 2 diabetes mellitus without complications; E66.9 Obesity, unspecified | CPT/HCPCS: 99214 ==

== ENCOUNTER → 2020-09-20 01:47 | Outpatient (CLI) | payer MEDICARE, SELFPAY ==
--- NOTE | 2020-09-20 07:00 | DI.NM_ITS ---
APPROVED REPORT Exam: Exercise Treadmill Patient Location: Out-Patient Room/Bed: Stress Nurse: Dixie Doll RN Ordering Provider:MARTHA MCDANIEL, Contact Number: [phone] BMI: 42.17 Baseline Rhythm: Sinus Rhythm Indications: exertional chest pain due to CAD Medical History Medical History: Hypertension, hyperlipidemia, CVD, Diabetes, obesity, smoker (former) Cardiac Medications: Amlodipine, aspirin, atorvastatin, metoprolol succinate, candesartan, nitro Allergies: lisinopril, codeine, gabapentin, ashu inhibitors Cardiac Risk Factors: family hx, hypertension, hyperlipidemia, diabetes, obesity, smoker (former) Previous Cardiac Procedures: PCI w/ stents Pretest Chest Pain Characteristics: mild cp and sob present Exercise History: Sedentary Physical Disabilities: None Lung Sounds: Clear to auscultation Heart Sounds: Regular Stress Test Details Test: Exercise stress testing was performed using a Elias protocol. Nuclear Acquisition: Rest Tc-99m/Stress Tc-99m 1 day Rest Isotope: Tc-99m Sestamibi. Dose: 15.0 Date: 09/20/2020 Injection Time: 0845 Stress Isotope: Tc-99m Sestamibi. Dose: 46.6 Date: 09/20/2020 Injection Time: 1014 HR Resting HR Supine: 92 bpm Max Heart Rate (APMHR): 161 bpm Resting HR Standin bpm Target HR (85% APMHR): 136 bpm Max HR Achieved: 148 bpm % of APMHR: 91 Recovery HR: 103 bpm HR response to stress: Normal HR response to stress Comment: metoprolol held for 24 hrs BP Resting BP Supine: 140/76 mmHg Resting BP Standin/78 mmHg Max BP: 190/68 mmHg Recovery BP: 144/72 mmHg BP response to stress: Normal blood pressure response to stress. ECG Resting ECG: Sinus Rhythm Ectopy: None Stress ECG: Sinus Tachycardia ST Change: No significant ST segment changes noted Arrhythmia: PAC Recovery ECG: Sinus Tachycardia Recovery ST Change: No significant ST segment changes noted Recovery Arrhythmia: PVC Clinical Reason for Termination: Dyspnea, Fatigue Stress Symptoms: Chest pain, Dyspnea, General Fatigue Exercise duration: 4 min34 sec Highest Stage Reached: Stage 2: 2.5 mph at 12% grade. Exercise capacity: 6.51 METs Espinosa Treadmill Score: 1 Rate Pressure Product: 13421 Stress ECG Conclusion 1. The patient exercised for 4 minutes and 34 seconds (6.5 METS). 2. The patient had symptoms of dyspnea as well as chest pressure. 3. There were no EKG changes suggestive of ischemia. Espinosa Treadmill Score is 1 which is Moderate risk. Stress Test Summary STAGE Time (mins) Speed (mph) Grade (%) HR BP SYMPTOMS METS Supine 92 140/76 Standing 104 148/78 1 3 1.7 10 138 166/72 dyspnea, 93% O2 4.6 2 6 2.5 12 148 7 1 min recovery 140 190/68 CP 3/10, 96% O2 3 min recovery 112 162/70 CP 2/10 6 min recovery 103 144/72 symptoms resovled MPI Conclusion The patient's ejection fraction was 61% with stress. There were no wall motion abnormalities. There was a small area of fixed perfusion defect at the apex likely due to artifact. This represents a normal SPECT stress test.
== END ==
PROVIDERS: PCP Family Medicine; Visit Provider Internal Medicine Cardiovascular Disease
DX: I25.119 Atherosclerotic heart disease of native coronary artery with unspecified angina pectoris (principal); Z82.49 Family history of ischemic heart disease and other diseases of the circulatory system; I10 Essential (primary) hypertension; E78.5 Hyperlipidemia, unspecified; E11.9 Type 2 diabetes mellitus without complications; E66.9 Obesity, unspecified; Z87.891 Personal history of nicotine dependence
CPT/HCPCS: 78452; 93016; 93018; 93017

== ENCOUNTER → 2020-10-12 09:03 | Outpatient (BNVA) | payer MEDICARE, SELFPAY | PROVIDERS: PCP Family Medicine; Referring Provider Family Medicine; Visit Provider Internal Medicine Cardiovascular Disease | DX: I25.10 Atherosclerotic heart disease of native coronary artery without angina pectoris (principal); I10 Essential (primary) hypertension; E11.9 Type 2 diabetes mellitus without complications; E78.5 Hyperlipidemia, unspecified | CPT/HCPCS: 99214 ==

== ENCOUNTER → 2020-11-16 09:54 | Outpatient (BNVA) | payer MEDICARE, SELFPAY | PROVIDERS: PCP Family Medicine; Referring Provider Family Medicine; Visit Provider Internal Medicine Cardiovascular Disease | DX: I25.10 Atherosclerotic heart disease of native coronary artery without angina pectoris (principal); R07.9 Chest pain, unspecified; I10 Essential (primary) hypertension; E78.5 Hyperlipidemia, unspecified; E11.9 Type 2 diabetes mellitus without complications; Z98.890 Other specified postprocedural states | CPT/HCPCS: 99214; 99213 ==

== ENCOUNTER → 2021-02-14 10:23 | Outpatient (BNVA) | payer OTHER, SELFPAY | PROVIDERS: PCP Family Medicine; Referring Provider Family Medicine; Visit Provider Internal Medicine Cardiovascular Disease | DX: I25.10 Atherosclerotic heart disease of native coronary artery without angina pectoris (principal); I10 Essential (primary) hypertension; E11.9 Type 2 diabetes mellitus without complications; Z98.890 Other specified postprocedural states | CPT/HCPCS: 99214; 99213 ==

== ENCOUNTER 2021-03-29 09:23 | Outpatient (CLI) | payer OTHER, SELFPAY ==
--- NOTE | 2021-03-29 09:00 | DI.RAD_ITS ---
Exam(s) XR SHOULDER LT COMPLETE 2+V EXAM: XR SHOULDER LT COMPLETE 2+V CLINICAL HISTORY: left shoulder pain. TECHNIQUE: 2D digital imaging was performed. COMPARISON: MR MRI R UPPER JOINT WO CONT from 05/28/2013 FINDINGS: BONES: No acute fracture is present. No bony destructive lesion is seen. JOINTS: No dislocation present. Spurring at the AC joint and inferior aspect of the glenoid. SOFT TISSUE: Normal. IMPRESSION: Degenerative changes greater at the AC joint. DATA REPOSITORY: RADIATION DOSE DELIVERED:
== END 2021-03-29 09:24 | disposition home or self-care (01) ==
LOC: DIORS 09:23
PROVIDERS: PCP Family Medicine; Referring Provider Family Medicine; Visit Provider Student in an Organized Health Care Education/Training Program
DX: M25.512 Pain in left shoulder (principal); M75.52 Bursitis of left shoulder; M75.22 Bicipital tendinitis, left shoulder; M19.012 Primary osteoarthritis, left shoulder; G56.02 Carpal tunnel syndrome, left upper limb; I10 Essential (primary) hypertension; E11.9 Type 2 diabetes mellitus without complications
CPT/HCPCS: 99203; 99214; 73030

== ENCOUNTER → 2021-04-25 01:59 | Outpatient (CLI) | payer OTHER, SELFPAY ==
--- NOTE | 2021-04-25 07:30 | DI.MRI_ITS ---
Exam(s) MR UPPER JOINT LT WO EXAM: MR UPPER JOINT LT WO CLINICAL HISTORY: pain,lt rotator cuff tear,m75.102. TECHNIQUE: Multiplanar multisequence MRI was performed. COMPARISON: Plain films 29 March 2021 FINDINGS: Bones: There is no fracture or contusion pattern. There is a tiny subchondral cyst in the anterior, superio r humeral head. The acromioclavicular joint shows moderate inferior spurring with some impingement o n the distal supraspinatus muscle.. minimal subacromial, and subcoracoid effusions are present. Mi nimal amount of glenohumeral joint fluid. Rotator Cuff: The supraspinatus tendon shows thickening and high signal distally and anteriorly consistent with ten dinosis or partial tear. The infraspinatus is intact. The subscapularis and teres minor are normal. Labrum and biceps anchor: The biceps tendon is located. The anchor is well maintained. Which could be degenerative or represent a tear. IMPRESSION: Tendinosis versus partial tear of the anterior supraspinatus tendon. Question tear versus degenerat ion of the anterosuperior labrum. . DATA REPOSITORY:
== END ==
PROVIDERS: PCP Family Medicine; Visit Provider Student in an Organized Health Care Education/Training Program
DX: M75.102 Unspecified rotator cuff tear or rupture of left shoulder, not specified as traumatic (principal)
CPT/HCPCS: 73221

== ENCOUNTER → 2021-04-27 09:05 | Outpatient (BNVA) | payer OTHER, SELFPAY | PROVIDERS: PCP Family Medicine; Referring Provider Family Medicine; Visit Provider Student in an Organized Health Care Education/Training Program | DX: M75.02 Adhesive capsulitis of left shoulder (principal); M75.22 Bicipital tendinitis, left shoulder; M75.102 Unspecified rotator cuff tear or rupture of left shoulder, not specified as traumatic | CPT/HCPCS: 20610; 99214; J1030 ==

== ENCOUNTER → 2021-07-06 09:01 | Outpatient (BNVA) | payer OTHER, SELFPAY | PROVIDERS: PCP Family Medicine; Referring Provider Family Medicine; Visit Provider Student in an Organized Health Care Education/Training Program | DX: M75.02 Adhesive capsulitis of left shoulder (principal); E11.9 Type 2 diabetes mellitus without complications; I10 Essential (primary) hypertension | CPT/HCPCS: 99214 ==

== ENCOUNTER 2021-07-08 02:58 | Outpatient (CLI) | payer OTHER, SELFPAY ==
[2021-07-08 11:11] LABS: Source Nasal/Nares
[2021-07-08 14:01] LABS: COVID-19 PCR Negative (Negative)
== END 2021-07-08 02:59 | disposition home or self-care (01) ==
LOC: LBO 02:58
PROVIDERS: PCP Family Medicine; Visit Provider Student in an Organized Health Care Education/Training Program
DX: Z20.822 Contact with and (suspected) exposure to COVID-19 (principal); Z01.812 Encounter for preprocedural laboratory examination
CPT/HCPCS: 87635

== ENCOUNTER 2021-07-11 06:06 | Day surgery (SDC) | payer OTHER, SELFPAY ==
[2021-07-11] VITALS (9 sets, daily range): BP systolic 101–120; BP diastolic 54–66; PULSE 63–72; RESP 12–16; TEMP 36.6–36.9; O2SAT 93–97; BMI 39.4
[2021-07-11] MEDS: Lactated Ringers 1,000 ML 60 ML IV (06:45)
--- NOTE | 2021-07-11 06:47 | W.ANESPRE ---
General Info Date of Service Date Performed: 07/11/21 Height: 6 ft Weight: 131.7 kg Body Mass Index (BMI): 39.4 Surgical Procedure: Operation Date: 07/11/21 07:40 Proposed Procedures Side Surgeon p Shoulder Manipulation w/Anesthesia Left Dwayne Murray MD Meds Allergies and Home Medications Allergies Allergy/AdvReac Type Severity Reaction Status Date / Time NIGEL Inhibitors AdvReac Cough Verified 07/11/21 06:42 codeine AdvReac Nausea Verified 07/11/21 06:42 gabapentin AdvReac vision Verified 07/11/21 06:42 trouble, dizzy,nausea lisinopril AdvReac cough Verified 07/11/21 06:42 Home Medication Medication Instructions Recorded fluocinonide-emollient 60 g TOPICAL PRN PRN #1 script 05/21/13 [Fluocinonide-E] metformin 1,000 mg PO BID 05/20/14 levothyroxine 25 mcg PO DAILY tab-cap 02/25/15 atorvastatin 80 mg PO DAILY #90 tab-cap 05/04/17 acetaminophen [Tylenol Extra 500 mg PO Q8H PRN PRN 06/16/18 Strength] cholecalciferol (vitamin D3) 1,000 unit PO DAILY 06/16/18 [Vitamin D3] tamsulosin [Flomax] 0.4 mg PO DAILY 06/16/18 aspirin 81 mg tablet,delayed 81 mg PO DAILY 05/08/19 release empagliflozin 25 mg tablet 25 mg PO DAILY 05/08/19 ketoconazole 2 % topical cream 1 applic TP BID PRN 05/08/19 paroxetine HCl 30 mg tablet 30 mg PO DAILY 05/08/19 triamcinolone acetonide 0.1 % 1 applic TP BID 05/08/19 topical cream losartan 25 mg tablet 25 mg PO DAILY #90 tab 10/08/20 nitroglycerin 0.4 mg sublingual 0.4 mg SUBLINGUAL PRN PRN #10 tab 10/12/20 tablet furosemide 20 mg tablet 20 mg PO DAILY #90 tab 11/16/20 dulaglutide 0.75 mg/0.5 mL 1.5 mg SUBCUT QWEEK ml 02/14/21 subcutaneous pen injector glipizide 5 mg tablet 5 mg PO DAILY 02/14/21 metoprolol tartrate 50 mg tablet 50 mg PO BID 02/14/21 omeprazole 20 mg capsule,delayed 20 mg PO DAILY 05/03/21 release amlodipine 5 mg tablet 2.5 mg PO DAILY tab 07/06/21 Current Visit Medications: Current Medications Generic Name Dose Route Start Last Admin Trade Name Dalryn PRN Reason Stop Dose Admin Ringer's Solution 1,000 mls @ 60 mls/hr 07/11/21 06:00 07/11/21 06:45 IV 08/07/21 05:59 60 mls/hr INFUSION RAYA Administration IV Miscellaneous Supplies 1 each 07/09/21 06:00 Iv Access IV 08/07/21 23:59 DIRECTED RAYA Sodium Chloride 0 ml 07/09/21 06:00 Normal Saline Flush 10 Ml Syr IV 08/07/21 23:59 PRN PRN Sodium Chloride 0 ml 07/09/21 06:00 Normal Saline 10 Ml Vial IJ 08/07/21 23:59 DIRECTED PRN Sterile Water 0 ml 07/09/21 06:00 Water,Injection,Sterile 10 Ml Vial IJ 08/07/21 23:59 DIRECTED PRN PFSH Active Problems Active Problems: Problem Status Onset Code Rectal/anal hemorrhage K62.5 Intention tremor 01/08/13 G25.2 Candidal intertrigo B37.2 Tinnitus H93.19 Sensorineural hearing loss of both ears H90.3 Chest pain R07.9 Left rotator cuff tear M75.102 Biceps tendinitis of left shoulder M75.22 Bursitis of left shoulder M75.52 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 Left carpal tunnel syndrome G56.02 Screening for colon cancer Z12.11 Left shoulder pain M25.512 Elevated bilirubin R17 Lung nodule R91.1 Trochanteric bursitis of both hips M70.61, M70.62 Hearing loss in right ear H91.91 Lateral epicondylitis M77.10 Memory impairment R41.3 Dyspepsia R10.13 Angina pectoris I20.9 Adhesive capsulitis of left shoulder M75.02 Lumbar spinal stenosis M48.061 Subclinical hypothyroidism E03.8 Anxiety F41.9 Depression F32.A Vitamin deficiency E56.9 No-show for appointment Z53.29 Medical History Medical History Chronic back pain Diabetic peripheral neuropathy Spinal stenosis Surgical History Surgical History Colonoscopy - MAC Coronary Stent x3 Hx of knee surgery right Tobacco Smoking/Tobacco Use Status: Former Tobacco Use Tobacco: How many years used: 29 Alcohol Alcohol Intake: former Year quit: 1997 Substance Use Substance use: Daily Substance use type: marijuana Details: Smokes nightly for sleep. Patient reports smoking last night 07/10/21. Vital Signs and Lab Results Vital Signs Most Recent Vital Signs in EMR: Most Recent Vital Signs Temp Pulse Resp BP Pulse Ox 36.6 C 63 16 114/62 96 07/11/21 06:27 07/11/21 06:27 07/11/21 06:27 07/11/21 06:27 07/11/21 06:27 Point of Care Results Point of Care Results: Finger Stick Blood Glucose 124 07/11/21 06:31 Lab Results Blood Type / Crossmatch: No Data to Display Complete Blood Count: No Data to Display Complete Metabolic Panel: No Data to Display Liver Function Panel: No Data to Display Coagulation Panel: No Data to Display Cardiac Panel: No Data to Display Arterial Blood Gas: No Data to Display Venous Blood Gas: No Data to Display Pancreas Panel: No Data to Display Thyroid Panel: No Data to Display Infectious Disease: Coronavirus (COVID-19)(PCR) Negative (Negative) 07/08/21 08:36 07/08/21 Coronavirus 2019 Source Nasal/Nares 07/08/21 08:36 07/08/21 Blood Cultures: No Data to Display Toxicology Panel: No Data to Display Imaging and Studies Imaging and Studies Study information below may be from another EMR and interpreted by another provider. Please see original notes in EMR for more complete details. EKG Summary: Sinus rhythm...normal P axis, V-rate 60- 99 Stress Test Summary: 1. The patient exercised for 4 minutes and 34 seconds (6.5 METS). 2. The patient had symptoms of dyspnea as well as chest pressure. 3. There were no EKG changes suggestive of ischemia. Anesthesia Assessment and Plan Anesthesia History Personal History: No History of Anesthesia Complications Family History: No Family History of Anesthesia Complications Exercise Tolerance Exercise Tolerance: Metabolic Equivalents<4 Pertinent Negatives Pertinent Negatives: No Symptoms of GERD, No Major Cardiovascular Symptoms or Complaints, No Major Pulmonary Symptoms or Complaints and No History of CVA/TIA Cardiac & Pulmonary Exam Cardiac Exam: Normal S1/S2 Heart Sounds Pulmonary Exam: Clear Bilateral Breath Sounds Implantable Cardiac Device Does patient have a Pacemaker or an ICD?: No Airway Exam Known Difficult Airway: No Mallampati Class: 3 Mouth Opening: Narrow (< 3cm) Thyromental Distance: Greater than 3 cm Facial Hair: Full [place] Neck Range of Motion: Limited ROM Neck Circumference: Thick Teeth Condition: Generalized Poor Dentition and Advised tooth loss possible given current condition (indicate tooth) ASA Classification ASA Score: ASA 3 Emergency Case?: No NPO Status NPO Status: NPO Clears >2 hours, Solids >8 hours Anesthesia Plan Resuscitation Status: Full Code Anesthesia Technique: General Anesthesia Airway Planned: Natural Airway Pain Management: Surgeon and patient request nerve block Monitors Used: Standard Monitors
--- NOTE | 2021-07-11 07:54 | PDOC.DSDIS_ITS ---
Discharge Plan Disposition Patient Disposition: HOME Condition: Stable Discharge Details Reason For Visit: Left shoulder stiffness Attending Provider: Dwayne Murray Primary Care Provider: Андрей Coello [place] Meds and New Rx's Prescriptions: New naproxen 250 mg tablet 250 - 500 mg PO BID PRNQty: 40 RF: 0 oxycodone 5 mg tablet 5 - 10 mg PO Q4H PRN (Reason: moderate to severe pain) Qty: 12 RF: 0 Continued glipizide 5 mg tablet 5 mg PO DAILY RF: 0 metoprolol tartrate 50 mg tablet 50 mg PO BID RF: 0 Jardiance 25 mg tablet 25 mg PO DAILY RF: 0 aspirin [Adult Low Dose Aspirin] 81 mg tablet,delayed release (DR/EC) 81 mg PO DAILY RF: 0 paroxetine HCl 30 mg tablet 30 mg PO DAILY RF: 0 triamcinolone acetonide 0.1 % cream 1 applic TP BID RF: 0 ketoconazole 2 % cream 1 applic TP BID PRNRF: 0 amlodipine 5 mg tablet 2.5 mg PO DAILY RF: 0 nitroglycerin [Nitrostat] 0.4 mg tablet, sublingual 0.4 mg Sublingual PRN PRN (Reason: chest pain) Qty: 10 RF: 12 furosemide 20 mg tablet 20 mg PO DAILY Qty: 90 RF: 3 Trulicity 0.75 mg/0.5 mL pen injector 1.5 mg subcut QWEEK RF: 0 fluocinonide-emollient [Fluocinonide-E] 60 GM cream 60 g Topical PRN PRNQty: 1 RF: 0 levothyroxine 25 MCG tablet 25 mcg PO DAILY RF: 0 atorvastatin 80 MG tablet 80 mg PO DAILY Qty: 90 RF: 2 losartan 25 mg tablet 25 mg PO DAILY Qty: 90 RF: 3 omeprazole 20 mg capsule,delayed release(DR/EC) 20 mg PO DAILY RF: 0 metformin 500 MG tablet extended release 24 hr 1,000 mg PO BID RF: 0 acetaminophen [Tylenol Extra Strength] 500 mg Tablet 500 mg PO Q8H PRN PRNRF: 0 tamsulosin [Flomax] 0.4 mg Capsule 0.4 mg PO DAILY RF: 0 cholecalciferol (vitamin D3) [Vitamin D3] 1,000 unit Capsule 1,000 unit PO DAILY RF: 0 Discharge Instructions Additional Instructions: Surgery: Left shoulder manipulation under anesthesia Activity: Weightbearing as tolerated left upper extremity. Please perform daily stretching exercises and encourage full range of motion. Physical therapy has been arranged to resume tomorrow. Prescriptions: Naproxen 250 mg take 1-2 every 12 hours with a meal as needed for moderate pain Oxycodone 5 mg take 1-2 every 4-6 hours as needed for severe pain You may use [id number] Tylenol (acetaminophen) as needed for mild pain. These pain medications may be taken all at once or in different combinations as needed. Also, recommend Colace (docusate) as a stool softener as surgery and pain medicine cause constipation. Dressings: None Follow-up: 10-[address] Murray Let us know right away if you develop any redness, drainage, fevers, chest pain, or trouble breathing. Do not drink alcohol or drive for at least 24 hours after anesthesia. Please call the office during business hours with any questions or concerns. Referrals: Dwayne Murray MD [ [facility] STAFF PHYSICIAN] - Discharge Orders Discharge Orders: Discharge Order (Routine); Ordered 07/11/21 Ordered By: Dwayne Murray DS: Diagnosis Discharge Diagnosis (1) Adhesive capsulitis of left shoulder: Status: Acute
--- NOTE | 2021-07-11 07:55 | W.ANESNERVE ---
Nerve Block Single Injection Procedure Date and Time Date Performed: 07/11/21 Procedure Start: 07:10 Location Where Procedure Performed Procedure Location: Day Surgery Unit Reason Performed: Postoperative Analgesia Requesting Provider: Dwayne Murray Timeout Performed Timeout Performed: Yes Monitoring Used ECG, Blood Pressure, SpO2 and ETCO2 Sterility Sterility: Hand Hygiene, Surgical Cap, Surgical Mask, Sterile Gloves and Chlorhexidine Sedation Given During Procedure Sedation Given (Indicate Dose Given): Versed IV Dose:: 2 mg Patient Mental Status Patient Mental Status: Sedate with meaningful communication Nerve Block 1st Nerve Block: Laterality: Left Block Type: Interscalene Needle / Catheter Used: 100mm SonoPlex II Local Anesthetic Bolus (Indicate Dose Given): Lidocaine used for local infiltration of skin, Injected in 3-5ml increments after negative blood aspiration, Bupivacaine 0.5% Dose:: 10 ml and Exparel Dose:: 10 ml Additives (Indicate Dose Given): None Ultrasound: Sterile probe cover and gel used Ultrasound Image Saved?: Yes Nerve Stimulator: Supplement to Ultrasound use Paresthesia: None Procedure Tolerated: No Complications and Patient tolerated well Procedure Outcome: Successful Performed By: Irina Griffith Supervised By: Venancio Pineda
[2021-07-11] MEDS: fentaNYL 100 MCG/2 ML VIAL IVP ×2 (08:20→08:30)
--- NOTE | 2021-07-11 09:24 | W.ANESPOSTOP ---
Postoperative Evaluation Date, Time and Location Date Performed: 07/11/21 Time Performed: 09:24 Patient Location: Day Surgery Unit Vital Signs Most Recent Imported Vital Signs: Most Recent Vital Signs Temp Pulse Resp BP Pulse Ox 36.9 C 72 16 112/63 93 07/11/21 09:20 07/11/21 09:20 07/11/21 09:20 07/11/21 09:20 07/11/21 09:20 Pain Score Most Recent Pain Score: Most Recent Pain Score Pain Level 4 07/11/21 09:20 Assessment Mental Status: Awake (Alert & Oriented to Patient Baseline) Airway and Respiratory Function: Patent airway with normal (patient baseline) respiratory exam Cardiovascular Function: Hemodynamically Stable Hydration Status: Adequately Hydrated Nausea & Vomiting: No Nausea or Vomiting Pain: Pt. Denies Any Pain Peripheral Nerve Block: Regional nerve block not resolved at time of post operative discharge
--- NOTE | 2021-07-11 10:27 | W.PM.OP ---
Date of service: 07/11/21 Time of Service: 07:30 Operative Note Operative Note DATE OF PROCEDURE: 07/11/21 PRE-OP DIAGNOSIS: Left shoulder adhesive capsulitis POST-OP DIAGNOSIS: same PROCEDURE: Left shoulder manipulation under anesthesia CPT# 60972 SURGEON: Dwayne Murray MARKETING SYSTEMS MANAGER: None None ANESTHESIA TYPE: General LMA/ETT and Primary Nerve Block Refer to Anesthesia Record COMPLICATIONS: None Patient was transported to: PACU Patient's condition: stable Indications: Please see complete medical record for details. Procedure Description: In the operating room, general anesthesia was induced. The patient was positioned supine on the stretcher. All bony prominences were well-padded. Preoperative antibiotics were omitted. The correct patient, procedure, and side of the procedure were all verified prior to beginning. Shoulder range of motion was assessed and confirmed stiffness with limited about 15 degrees external rotation and 90 degrees of forward elevation. Gentle steady pressure alternating forward elevation, abduction, and external rotation at 90 degrees and at the side was used to steadily release palpable adhesions without undue pressure or stress using a short lever arm. There was excellent soft tissue releases in all directions readily able to achieve full range of motion comparable to the contralateral side. Range of motion was then cycled repeated in all directions. Final motion was past 75 degrees external rotation at the side and past 145 forward elevation with 80+ degrees internal rotation at 90 and full abduction. There is no instability postmanipulation. The patient awoke from anesthesia without complication and was transferred to the recovery room in a stable condition.
== END 2021-07-11 10:10 | disposition home or self-care (01) ==
PROVIDERS: PCP Family Medicine; Visit Provider Student in an Organized Health Care Education/Training Program
PROC: (CPT 23700; principal; 2021-07-11 07:30)
DX: M75.02 Adhesive capsulitis of left shoulder (principal); M19.012 Primary osteoarthritis, left shoulder; E03.9 Hypothyroidism, unspecified; E11.42 Type 2 diabetes mellitus with diabetic polyneuropathy
CPT/HCPCS: 23700; 76942; J0131; J1100; J1885; J2250; J2405; J3010

== ENCOUNTER → 2021-07-27 07:58 | Outpatient (BNVA) | payer OTHER, SELFPAY | PROVIDERS: PCP Family Medicine; Referring Provider Student in an Organized Health Care Education/Training Program; Visit Provider Student in an Organized Health Care Education/Training Program | DX: Z47.89 Encounter for other orthopedic aftercare (principal); M25.512 Pain in left shoulder ==

== ENCOUNTER 2021-08-23 22:05 | Outpatient (REF) | payer OTHER, SELFPAY ==
[2021-08-23 16:48] LABS: ALT 42 U/L (16-63); AST 28 U/L (15-37); Albumin 4.4 g/dL (3.4-5.0); Alkaline Phosphatase 110 U/L (46-116); Anion Gap 13.1 mmol/L (3-11); BUN 20 mg/dL (7-18); Bilirubin, Total 1.1 mg/dL (0.2-1.0); CO2 22.9 mmol/L (21.0-32.0); CREATININE 0.9 mg/dL (0.70-1.30); Calcium 8.8 mg/dL (8.5-10.1); Chloride 102 mmol/L (98-107); Glucose 112 mg/dL (74-106); Potassium 4.1 mmol/L (3.5-5.1); Sodium 138 mmol/L (136-145); TSH (W/Ref FT4) 3.51 uIU/mL (0.36-3.74); Total Protein 7.3 g/dL (6.4-8.2)
== END 2021-08-23 22:06 | disposition home or self-care (01) ==
LOC: NCHCN 22:05
PROVIDERS: PCP Family Medicine; Visit Provider Family Medicine
DX: E03.9 Hypothyroidism, unspecified (principal); E11.9 Type 2 diabetes mellitus without complications; R17 Unspecified jaundice
CPT/HCPCS: 80053; 84443

== ENCOUNTER → 2021-09-06 08:48 | Outpatient (BNVA) | payer OTHER, SELFPAY | PROVIDERS: PCP Family Medicine; Referring Provider Family Medicine; Visit Provider Internal Medicine Cardiovascular Disease | DX: I25.10 Atherosclerotic heart disease of native coronary artery without angina pectoris (principal); I10 Essential (primary) hypertension | CPT/HCPCS: 99214; 99213 ==

== ENCOUNTER → 2021-09-14 07:57 | Outpatient (BNVA) | payer OTHER, SELFPAY | PROVIDERS: PCP Family Medicine; Referring Provider Family Medicine; Visit Provider Student in an Organized Health Care Education/Training Program | DX: Z47.89 Encounter for other orthopedic aftercare (principal); M25.512 Pain in left shoulder | CPT/HCPCS: 20610; J1030 ==

== ENCOUNTER 2021-09-20 01:21 | Outpatient (CLI) | payer OTHER, SELFPAY ==
--- NOTE | 2021-09-20 08:39 | DI.CT_ITS ---
Exam(s) CT CHEST WO EXAM: CT CHEST WO CLINICAL HISTORY: F/U 6 MM LLL LUNG NODULE. TECHNIQUE: Imaging protocol: Axial computed tomography images were obtained and coronal and sagittal reformatted images were created and reviewed. COMPARISON: CT CT CHEST/ABD/PEL W from 07/29/2020 FINDINGS: Tracheobronchial tree: Patent where visualized. Pulmonary parenchyma: There are calcified granuloma present. There is again seen a 0.6 cm noncalcifi ed pulmonary nodule in the left lower lobe. No new pulmonary nodules are present. No focal consolid ating infiltrates are seen. No architectural distortion. Mediastinum and Elissa: No dominant adenopathy or fluid collection. The esophagus is unremarkable. Thyroid gland: Unremarkable. Pleura: No effusion or pneumothorax. Heart: The heart is not dilated. Coronary artery calcifications are present. No pericardial effusion . Aorta: Thoracic aorta non-dilated. Atherosclerosis is present. Upper abdomen: There is fatty infiltration of the liver. Lymph nodes: Within normal limits. Soft tissues: Mild bilateral gynecomastia. Bones:Within normal limits for the patient's age. IMPRESSION: 1. Stable 0.6 cm noncalcified pulmonary nodule in the left lower lobe. No new pulmonary nodules are present. 2. For high risk patients, (history of smoking or other risk factors), a follow-up CT scan in 12 malachi hs is recommended for re-evaluation. (Jenni et al, 2017). RADIATION DOSE DELIVERED: 823.83mGy.cm Total DLP 823.83mGy.cm Total DLP DATA REPOSITORY: All CT scans at this facility are submitted to the National Radiology Data Registry (NRDR) Dose Index Registry (DIR) with the [employer] (ACR). RADIATION OPTIMIZATION: All CT scans at this facility use at least one of these dose optimization te chniques: automated exposure control; mA and/or kV adjustment per patient size (includes targeted exa ms where dose is matched to clinical indication); or iterative reconstruction.
== END 2021-09-20 01:41 ==
LOC: DI 01:22
PROVIDERS: PCP Family Medicine; Visit Provider Family Medicine
DX: R91.1 Solitary pulmonary nodule (principal); K76.0 Fatty (change of) liver, not elsewhere classified
CPT/HCPCS: 71250

== ENCOUNTER → 2021-11-15 07:54 | Outpatient (BNVA) | payer OTHER, SELFPAY | PROVIDERS: PCP Family Medicine; Referring Provider Family Medicine; Visit Provider Student in an Organized Health Care Education/Training Program | DX: M75.02 Adhesive capsulitis of left shoulder (principal) | CPT/HCPCS: 99214 ==

== ENCOUNTER 2022-01-18 01:37 | Outpatient (CLI) | payer OTHER, SELFPAY ==
[2022-01-18 12:18] LABS: Source Nasal/Nares
[2022-01-18 16:49] LABS: COVID-19 PCR Negative (Negative)
== END 2022-01-18 01:38 | disposition home or self-care (01) ==
PROVIDERS: PCP Family Medicine; Visit Provider Student in an Organized Health Care Education/Training Program
DX: Z20.822 Contact with and (suspected) exposure to COVID-19 (principal); Z01.818 Encounter for other preprocedural examination
CPT/HCPCS: 87635; U0005

== ENCOUNTER 2022-01-20 05:43 | Day surgery (SDC) | payer OTHER, SELFPAY ==
[2022-01-20] VITALS (12 sets, daily range): BP systolic 64–108; BP diastolic 37–64; PULSE 59–70; RESP 12–17; TEMP 36–36.5; O2SAT 91–98; BMI 38.4
[2022-01-20] MEDS: Lactated Ringers 1,000 ML 30 ML IV (06:46)
--- NOTE | 2022-01-20 07:14 | W.ANESPRE ---
General Info Date of Service Date Performed: 01/20/22 Height: 6 ft Weight: 128.4 kg Body Mass Index (BMI): 38.4 Surgical Procedure: Operation Date: 01/20/22 07:40 Proposed Procedure Side Surgeon p Shoulder Manipulation Under Anesthesia Left Dwayne Murray MD Meds Allergies and Home Medications Allergies Allergy/AdvReac Type Severity Reaction Status Date / Time NIGEL Inhibitors AdvReac Cough Verified 01/20/22 06:17 codeine AdvReac Nausea Verified 01/20/22 06:17 gabapentin AdvReac vision Verified 01/20/22 06:17 trouble, dizzy,nausea lisinopril AdvReac cough Verified 01/20/22 06:17 Home Medication Medication Instructions Recorded fluocinonide-emollient 0.05 % 60 g topical PRN PRN ##1 05/21/13 topical cream (Fluocinonide-E) metformin 500 mg tablet,extended 1,000 mg PO BID 05/20/14 release 24 hr levothyroxine 25 mcg tablet 25 mcg PO DAILY 02/25/15 atorvastatin 80 mg tablet 80 mg PO DAILY #90 tab-caps 05/04/17 acetaminophen 500 mg tablet 500 mg PO Q8H PRN PRN 06/16/18 (Tylenol Extra Strength) cholecalciferol (vitamin D3) 25 1,000 unit PO DAILY 06/16/18 mcg (1,000 unit) capsule (Vitamin D3) tamsulosin 0.4 mg capsule (Flomax) 0.4 mg PO DAILY 06/16/18 aspirin 81 mg tablet,delayed 81 mg PO DAILY 05/08/19 release (Adult Low Dose Aspirin) empagliflozin 25 mg tablet 25 mg PO DAILY 05/08/19 (Jardiance) ketoconazole 2 % topical cream 1 applic topical BID PRN 05/08/19 paroxetine HCl 30 mg tablet 30 mg PO DAILY 05/08/19 triamcinolone acetonide 0.1 % 1 applic topical BID 05/08/19 topical cream nitroglycerin 0.4 mg sublingual 0.4 mg sublingual PRN PRN chest 10/12/20 tablet (Nitrostat) pain #10 tabs furosemide 20 mg tablet 20 mg PO DAILY #90 tabs 11/16/20 dulaglutide 0.75 mg/0.5 mL 1.5 mg subcut QWEEK 02/14/21 subcutaneous pen injector (Trulicity) glipizide 5 mg tablet 5 mg PO DAILY 02/14/21 metoprolol tartrate 50 mg tablet 50 mg PO BID 02/14/21 omeprazole 20 mg capsule,delayed 20 mg PO DAILY 05/03/21 release amlodipine 5 mg tablet 2.5 mg PO DAILY 07/06/21 celecoxib 200 mg capsule 200 mg PO DAILY PRN pain #90 caps 09/14/21 losartan 25 mg tablet 25 mg PO DAILY #90 tabs 09/26/21 Current Visit Medications: Current Medications Generic Name Dose Route Start Last Admin Trade Name Darlyn PRN Reason Stop Dose Admin Ringer's Solution 1,000 mls @ 30 mls/hr 01/20/22 06:00 01/20/22 06:46 IV 02/18/22 23:59 30 mls/hr INFUSION RAYA Administration IV Miscellaneous Supplies 1 each 01/20/22 06:00 Iv Access IV 02/18/22 23:59 DIRECTED RAYA Sodium Chloride 0 ml 01/20/22 06:00 Normal Saline Flush 10 Ml Syr IV 02/18/22 23:59 PRN PRN Sodium Chloride 0 ml 01/20/22 06:00 Normal Saline 10 Ml Vial IJ 02/18/22 23:59 DIRECTED PRN Sterile Water 0 ml 01/20/22 06:00 Water,Injection,Sterile 10 Ml Vial IJ 02/18/22 23:59 DIRECTED PRN PFSH Active Problems Active Problems: Problem Status Onset Code Rectal/anal hemorrhage K62.5 Intention tremor 01/08/13 G25.2 Candidal intertrigo B37.2 Tinnitus H93.19 Sensorineural hearing loss of both ears H90.3 Chest pain R07.9 Left rotator cuff tear M75.102 Biceps tendinitis of left shoulder M75.22 Bursitis of left shoulder M75.52 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 Left carpal tunnel syndrome G56.02 Screening for colon cancer Z12.11 Left shoulder pain M25.512 Elevated bilirubin R17 Lung nodule R91.1 Trochanteric bursitis of both hips M70.61, M70.62 Hearing loss in right ear H91.91 Lateral epicondylitis M77.10 Memory impairment R41.3 Dyspepsia R10.13 Angina pectoris I20.9 Adhesive capsulitis of left shoulder M75.02 Lumbar spinal stenosis M48.061 Subclinical hypothyroidism E03.8 Anxiety F41.9 Depression F32.A Vitamin deficiency E56.9 No-show for appointment Z53.29 Medical History Medical History Chronic back pain Diabetic peripheral neuropathy Hx of type 2 diabetes mellitus Spinal stenosis Medical History Comments:: rt leg, back problems, reports has trouble sleeping on his back. Surgical History Surgical History Colonoscopy - MAC Coronary Stent x3 Hx of cardiac catheterization 09/2020x3 stents placed Hx of knee surgery right Tobacco Smoking/Tobacco Use Status: Former Tobacco Use Alcohol Alcohol Intake: former Year quit: 1997 Substance Use Substance use: Daily Substance use type: marijuana Details: Only at HS Vital Signs and Lab Results Vital Signs Most Recent Vital Signs in EMR: Most Recent Vital Signs Temp Pulse Resp BP Pulse Ox 36.5 C 59 L 16 106/59 L 98 01/20/22 06:08 01/20/22 06:08 01/20/22 06:08 01/20/22 06:08 01/20/22 06:08 Point of Care Results Point of Care Results: Finger Stick Blood Glucose 116 01/20/22 06:53 Lab Results Blood Type / Crossmatch: No Data to Display Complete Blood Count: No Data to Display Complete Metabolic Panel: No Data to Display Liver Function Panel: No Data to Display Coagulation Panel: No Data to Display Cardiac Panel: No Data to Display Arterial Blood Gas: No Data to Display Venous Blood Gas: No Data to Display Pancreas Panel: No Data to Display Thyroid Panel: No Data to Display Infectious Disease: Coronavirus (COVID-19)(PCR) Negative (Negative) 01/18/22 09:45 Coronavirus 2019 Source Nasal/Nares 01/18/22 09:45 Blood Cultures: No Data to Display Toxicology Panel: No Data to Display Imaging and Studies Imaging and Studies Study information below may be from another EMR and interpreted by another provider. Please see original notes in EMR for more complete details. EKG Summary: Sinus rhythm...normal P axis, V-rate 60- 99 Stress Test Summary: 1. The patient exercised for 4 minutes and 34 seconds (6.5 METS). 2. The patient had symptoms of dyspnea as well as chest pressure. 3. There were no EKG changes suggestive of ischemia. Anesthesia Assessment and Plan Anesthesia History Personal History: No History of Anesthesia Complications Family History: No Family History of Anesthesia Complications Exercise Tolerance Exercise Tolerance: Metabolic Equivalents<4 Pertinent Negatives Pertinent Negatives: No Symptoms of GERD, No Major Cardiovascular Symptoms or Complaints (Angina episode 1 month ago with arguement, resolved with one nitro. Not new for patient), No Major Pulmonary Symptoms or Complaints and No History of CVA/TIA Cardiac & Pulmonary Exam Cardiac Exam: Normal S1/S2 Heart Sounds Pulmonary Exam: Clear Bilateral Breath Sounds Implantable Cardiac Device Does patient have a Pacemaker or an ICD?: No Airway Exam Known Difficult Airway: No Mallampati Class: 3 Mouth Opening: Narrow (< 3cm) Thyromental Distance: Greater than 3 cm Facial Hair: Full [place] Neck Range of Motion: Limited ROM Neck Circumference: Thick Teeth Condition: Generalized Poor Dentition and Advised tooth loss possible given current condition (indicate tooth) ASA Classification ASA Score: ASA 3 Emergency Case?: No NPO Status NPO Status: NPO Clears >2 hours, Solids >8 hours Anesthesia Plan Resuscitation Status: Full Code Anesthesia Technique: General Anesthesia Airway Planned: LMA Pain Management: Surgeon and patient request nerve block Monitors Used: Standard Monitors
--- NOTE | 2022-01-20 07:55 | ROE_ITS ---
Operative Note Operative Note DATE OF PROCEDURE: 01/20/22 PRE-OP DIAGNOSIS: Left shoulder recurrent adhesive capsulitis POST-OP DIAGNOSIS: same PROCEDURE: Left shoulder revision manipulation under anesthesia CPT# 98040 SURGEON: Dwayne Murray SURGICAL INSTRUMENT TECHNICIAN: None None ANESTHESIA TYPE: General LMA/ETT and Primary Nerve Block Refer to Anesthesia Record COMPLICATIONS: None Patient was transported to: PACU Patient's condition: stable Indications: Please see complete medical record for details. Procedure Description: In the operating room, general anesthesia was induced. The patient was positioned supine on the stretcher. All bony prominences were well-padded. Preoperative antibiotics were omitted. The correct patient, procedure, and side of the procedure were all verified prior to beginning. Shoulder range of motion was assessed and confirmed with stiffness andlimited about 15 degrees external rotation and 90 degrees of forward elevation. Gentle steady pressure alternating forward elevation, abduction, and external rotation at 90 degrees and at the side was used to steadily release palpable adhesions without undue pressure or stress using a short lever arm. There was excellent fairly immediate soft tissue releases in all directions readily able to achieve full range of motion symmetrical to the contralateral side. Range of motion was then cycled, repeated, and held in all terminal directions. Final motion was past 75 degrees external rotation at the side and past 145 forward elevation with 80+ degrees internal rotation at 90 and full abduction. There is was instability or significant mechanical crepitation post-manipulation. The patient awoke from anesthesia without complication and was transferred to the recovery room in a stable condition.
--- NOTE | 2022-01-20 07:55 | PDOC.DSDIS_ITS ---
Discharge Plan Disposition Patient Disposition: HOME Condition: Stable Discharge Details Reason For Visit: Left shoulder stiffness Attending Provider: Dwayne Murray Primary Care Provider: Андрей Coello [place] Meds and New Rx's Prescriptions: New oxycodone 5 mg tablet 5 - 10 mg PO Q4H MDD 30 mg PRN (Reason: moderate to severe pain) Qty: 12 0RF naproxen 250 mg tablet 250 - 500 mg PO BID PRNQty: 20 0RF Rx Instructions: take with a meal Continued glipizide 5 mg tablet 5 mg PO DAILY metoprolol tartrate 50 mg tablet 50 mg PO BID Label Comments: 02/14/21 from PCP list who writes for this medication. RH celecoxib 200 mg capsule 200 mg PO DAILY PRN (Reason: pain) Qty: 90 0RF Jardiance 25 mg tablet 25 mg PO DAILY aspirin [Adult Low Dose Aspirin] 81 mg tablet,delayed release (DR/EC) 81 mg PO DAILY paroxetine HCl 30 mg tablet 30 mg PO DAILY triamcinolone acetonide 0.1 % cream 1 applic TP BID ketoconazole 2 % cream 1 applic TP BID PRN amlodipine 5 mg tablet 2.5 mg PO DAILY nitroglycerin [Nitrostat] 0.4 mg tablet, sublingual 0.4 mg Sublingual PRN PRN (Reason: chest pain) Qty: 10 12RF furosemide 20 mg tablet 20 mg PO DAILY Qty: 90 3RF Trulicity 0.75 mg/0.5 mL pen injector 1.5 mg subcut QWEEK fluocinonide-emollient [Fluocinonide-E] 60 GM cream 60 g Topical PRN PRNQty: 1 Rx Instructions: use on hands but not elsewhere.HE levothyroxine 25 MCG tablet 25 mcg PO DAILY atorvastatin 80 MG tablet 80 mg PO DAILY Qty: 90 2RF omeprazole 20 mg capsule,delayed release(DR/EC) 20 mg PO DAILY losartan 25 mg tablet 25 mg PO DAILY Qty: 90 3RF metformin 500 MG tablet extended release 24 hr 1,000 mg PO BID acetaminophen [Tylenol Extra Strength] 500 mg Tablet 500 mg PO Q8H PRN PRN tamsulosin [Flomax] 0.4 mg Capsule 0.4 mg PO DAILY cholecalciferol (vitamin D3) [Vitamin D3] 1,000 unit Capsule 1,000 unit PO DAILY Discharge Instructions Additional Instructions: Surgery: Left shoulder revision manipulation under anesthesia Activity: Weight-bearing as tolerated left upper extremity.? Please perform daily stretching exercises and encourage full range of motion.? Physical therapy has been arranged to resume tomorrow. Prescriptions ([facility] at [address] as [facility] is closed): Resume home medications Naproxen 250 mg take 1-2 every 12 hours with a meal as needed for moderate pain- do not use at same time as Celebrex (celecoxib) or other NSAIDs Oxycodone 5 mg take 1-2 every 4-6 hours as needed for severe pain You may use [id number] Tylenol (acetaminophen) as needed for mild pain. These pain medications may be taken all at once or in different combinations as needed. Also, recommend Colace (docusate) as a stool softener as surgery and pain medicine cause constipation. Dressings: None Follow-up: 10-[address] Murray Let us know right away if you develop any redness, drainage, fevers, chest pain, or trouble breathing.? Do not drink alcohol or drive for at least 24 hours after anesthesia. Please call the office during business hours with any questions or concerns. DS: Diagnosis Discharge Diagnosis (1) Adhesive capsulitis of left shoulder: Status: Acute
--- NOTE | 2022-01-20 08:20 | W.ANESNERVE ---
Nerve Block Single Injection Procedure Date and Time Date Performed: 01/20/22 Procedure Start: 07:18 Location Where Procedure Performed Procedure Location: Day Surgery Unit Reason Performed: Postoperative Analgesia Requesting Provider: Dwayne Murray Timeout Performed Timeout Performed: Yes Monitoring Used ECG, Blood Pressure, SpO2 and See EMR for corresponding vital signs Sterility Sterility: Hand Hygiene, Surgical Cap, Surgical Mask, Sterile Gloves, Sterile Drape/Sheet and Chlorhexidine Sedation Given During Procedure Sedation Given (Indicate Dose Given): Versed IV Dose:: 2mg Patient Mental Status Patient Mental Status: Sedate with meaningful communication Nerve Block 1st Nerve Block: Laterality: Left Block Type: Interscalene Needle / Catheter Used: 100mm SonoPlex II Local Anesthetic Bolus (Indicate Dose Given): Lidocaine used for local infiltration of skin, Injected in 3-5ml increments after negative blood aspiration and Bupivacaine 0.5% Dose:: 15ml Additives (Indicate Dose Given): Precedex Dose:: 100mcg Ultrasound: Sterile probe cover and gel used Ultrasound Image Saved?: Yes Nerve Stimulator: Not Used Paresthesia: None Procedure Tolerated: Patient tolerated well Procedure Outcome: Successful Performed By: Carolynn Garcia
[2022-01-20] MEDS: ePHEDrine 25 MG/5 ML Syringe IVP (08:37)
--- NOTE | 2022-01-20 11:09 | W.ANESPOSTOP ---
Postoperative Evaluation Date, Time and Location Date Performed: 01/20/22 Time Performed: 09:55 Patient Location: Day Surgery Unit Vital Signs Most Recent Imported Vital Signs: Most Recent Vital Signs Temp Pulse Resp BP Pulse Ox 36.5 C 66 16 102/62 95 01/20/22 09:49 01/20/22 09:49 01/20/22 09:49 01/20/22 09:49 01/20/22 09:49 Pain Score Most Recent Pain Score: Most Recent Pain Score Pain Level 0 01/20/22 09:49 Assessment Mental Status: Awake (Alert & Oriented to Patient Baseline) Airway and Respiratory Function: Patent airway with normal (patient baseline) respiratory exam Cardiovascular Function: Hemodynamically Stable Hydration Status: Adequately Hydrated Nausea & Vomiting: No Nausea or Vomiting Pain: Pt. Denies Any Pain Peripheral Nerve Block: Regional nerve block not resolved at time of post operative discharge
== END 2022-01-20 10:20 | disposition home or self-care (01) ==
PROVIDERS: PCP Family Medicine; Visit Provider Student in an Organized Health Care Education/Training Program
PROC: (CPT 23700; principal; 2022-01-20 07:30)
DX: M75.02 Adhesive capsulitis of left shoulder (principal); I10 Essential (primary) hypertension; E78.5 Hyperlipidemia, unspecified; E11.42 Type 2 diabetes mellitus with diabetic polyneuropathy
CPT/HCPCS: 23700; 76942; 99214; J1100; J1885; J2250; J2405; J2704

== ENCOUNTER → 2022-02-01 10:50 | Outpatient (BNVA) | payer OTHER, SELFPAY | PROVIDERS: PCP Family Medicine; Referring Provider Family Medicine; Visit Provider Student in an Organized Health Care Education/Training Program | DX: M75.02 Adhesive capsulitis of left shoulder (principal) ==

== ENCOUNTER → 2022-03-07 09:18 | Outpatient (BNVA) | payer OTHER, SELFPAY | PROVIDERS: PCP Family Medicine; Referring Provider Family Medicine; Visit Provider Internal Medicine Cardiovascular Disease | DX: Z95.5 Presence of coronary angioplasty implant and graft (principal); I25.10 Atherosclerotic heart disease of native coronary artery without angina pectoris; I10 Essential (primary) hypertension | CPT/HCPCS: 99214 ==

== ENCOUNTER → 2022-04-18 07:52 | Outpatient (BNVA) | payer OTHER, SELFPAY | PROVIDERS: PCP Family Medicine; Referring Provider Family Medicine; Visit Provider Surgery | DX: Z12.11 Encounter for screening for malignant neoplasm of colon (principal) ==

== ENCOUNTER → 2022-04-18 09:55 | Outpatient (BNVA) | payer OTHER, SELFPAY | PROVIDERS: PCP Family Medicine; Referring Provider Family Medicine; Visit Provider Student in an Organized Health Care Education/Training Program | DX: M75.02 Adhesive capsulitis of left shoulder (principal) ==

== ENCOUNTER 2022-05-04 04:36 | Observation (INO) | payer OTHER, SELFPAY ==
[2022-05-04] VITALS (23 sets, daily range): BP systolic 118–164; BP diastolic 73–89; PULSE 70–97; RESP 11–21; TEMP 36–37; O2SAT 95–99
--- NOTE | 2022-05-04 04:45 | DI.CT_ITS ---
Exam(s) CT ABDOMEN PELVIS W EXAM: CT ABDOMEN PELVIS W CLINICAL HISTORY: llq pain and blood in stools TECHNIQUE: Imaging Protocol: Axial computed tomography images with coronal and sagittal reformatted images were created and reviewed CONTRAST MATERIAL: Intravenous: Omnipaque 350 Contrast volume:100 mL Oral: No COMPARISON: CT CT CHEST/ABD/PEL W from 07/29/2020 FINDINGS: ABDOMEN: Lung Bases: Mild coronary artery calcification is present. Liver: There is decreased attenuation of the liver. The liver is enlarged measuring 21.5 cm. No abiel surable mass. Portal, Superior Mesenteric, and Splenic Veins: Unremarkable. Gallbladder and Biliary Tract: No radiodense calculus or dilation. Pancreas: Normal density, no abnormal calcifications or inflammatory process. Spleen: Normal. Adrenals: No masses seen. Kidneys: Normal size, contour and axis. No radiodense stones or obstructive uropathy. No masses seen. Abdominal Aorta: Abdominal portion non-dilated. Atherosclerosis is present. Bowel: No obstruction or bowel wall thickening. Appendix is unremarkable. There is diverticulosis see n in the sigmoid colon. There is mild wall thickening and mild pericolonic inflammatory change sugge stive of acute sigmoid diverticulitis. Peritoneal Cavity: No ascites, collection or mesenteric inflammatory response. No free air. Lymph Nodes: Within normal limits. Bones: Within normal limits for the patient's age. Soft Tissues: Unremarkable. PELVIS: Bladder: Symmetric distention, no gross wall thickening. Reproductive Organs: Unremarkable as visualized. Lymph Nodes: Within normal limits. Bones: Within normal limits for the patient's age. IMPRESSION: Findings suggestive of acute sigmoid diverticulitis. No abscess or free air. RADIATION DOSE DELIVERED: 1,137.57mGy.cm Total DLP DATA REPOSITORY: All CT scans at this facility are submitted to the National Radiology Data Registry (NRDR) Dose Index Registry (DIR) with the [employer] (A[employer]). RADIATION OPTIMIZATION: All CT scans at this facility use at least one of these dose optimization te chniques: automated exposure control; mA and/or kV adjustment per patient size (includes targeted exa ms where dose is matched to clinical indication); or iterative reconstruction.
--- NOTE | 2022-05-04 04:52 | W.ED.GENAD ---
Discharge Plan Disposition Patient Disposition: STILL A PATIENT Condition: Stable Discharge Details Clinical Impression: Diverticulitis Primary Care Provider: Андрей Coello ED Provider: Paco Coles Home Meds and New Rx's Prescriptions: No Action metoprolol tartrate 50 mg tablet 50 mg PO BID Label Comments: 02/14/21 from PCP list who writes for this medication. RH glipizide 5 mg tablet 2.5 mg PO DAILY Jardiance 25 mg tablet 25 mg PO DAILY aspirin [Adult Low Dose Aspirin] 81 mg tablet,delayed release (DR/EC) 81 mg PO DAILY paroxetine HCl 30 mg tablet 30 mg PO DAILY triamcinolone acetonide 0.1 % cream 1 applic TP BID ketoconazole 2 % cream 1 applic TP BID PRN amlodipine 5 mg tablet 2.5 mg PO DAILY nitroglycerin [Nitrostat] 0.4 mg tablet, sublingual 0.4 mg Sublingual PRN PRN (Reason: chest pain) Qty: 10 12RF furosemide 20 mg tablet 20 mg PO DAILY Qty: 90 3RF Trulicity 0.75 mg/0.5 mL pen injector 1.5 mg subcut QWEEK polyethylene glycol 3350 17 gram/dose powder 238 g PO ONCE Qty: 238 0RF Rx Instructions: take per colonoscopy instructions bisacodyl [Dulcolax (bisacodyl)] 5 mg tablet,delayed release (DR/EC) 5 mg PO ONCE Qty: 4 0RF Rx Instructions: take per colonoscopy instructions fluocinonide-emollient [Fluocinonide-E] 60 GM cream 60 g Topical PRN PRNQty: 1 Rx Instructions: use on hands but not elsewhere.HE levothyroxine 25 MCG tablet 25 mcg PO DAILY atorvastatin 80 MG tablet 80 mg PO DAILY Qty: 90 2RF losartan 25 mg tablet 25 mg PO DAILY Qty: 90 3RF metformin 500 MG tablet extended release 24 hr 1,000 mg PO BID acetaminophen [Tylenol Extra Strength] 500 mg Tablet 500 mg PO Q8H PRN PRN tamsulosin [Flomax] 0.4 mg Capsule 0.4 mg PO DAILY cholecalciferol (vitamin D3) [Vitamin D3] 1,000 unit Capsule 1,000 unit PO DAILY benzonatate 100 mg capsule 1 cap PO TID PRN Label Comments: 1 capsule by mouth three times a day As needed for cough Medical Decision Making This is a 62-year-old male with a past medical history of diabetes mellitus, previous heart attack with stent, ulcerative colitis, diverticulitis, who is on regular aspirin who presents today for evaluation of lower abdominal pain for the last 7 hours, as well as bright red blood and clots with his bowel movements. Patient describes the pain as achy. He has had 4 bowel movements since midnight that have had bright red blood and clots in them. He has had 1-2 episodes of vomiting and some mild nausea as well. He denies any chest or epigastric pain. He has had diverticulitis before and states that it presented similar to this. He denies taking any aspirin for the last week or so. He is not on any other blood thinners. No other complaints at this time. No other modifying factors. Exam demonstrates mild lower abdominal tenderness, primarily on the left. Bright red blood is noted rectally from stool. Small melena clots are also present. Differential is highest for diverticulitis with mild bleed. UC/pancolitis is also of concern. We will treat the patient's pain, gently rehydrate, get a CT scan, COVID screen, monitor closely and reassess. Of note the patient was supposed to have a colonoscopy about a week or so ago, but this was canceled secondary to a mild cough that he had. Please note that the the patient's clinical course was during an ED downtime/code black. Please refer to any written documentation on paper for anything that is absent from the chart. 7:41 AM Patient remained stable. Oxygenation stable. Laboratory work-up demonstrates no white count bandemia or left shift. He does have mild lymphopenia. Potentially suggestive of viral etiology. Lipase normal. Urinalysis shows no evidence of infection. Personal review of the CT scan shows evidence of diverticulitis to me. I did start Cipro and Flagyl. However there is an extreme delay in getting the vRad result. The image which was created at 4:42 AM still has not been read by radiology. We are pending this. I suspect that the patient would benefit from admission given the severity of his last diverticulitis. Case will be signed out to my colleague Tanya Jensen for follow-up on CT read and final disposition which I would expect to be inpatient admission if deemed appropriate after CT findings. 8:[address] scan shows evidence of diverticulitis without perforation. I did reassess the patient and he still does have mild to moderate pain. I do feel that with his symptoms, difficulty tolerating p.o., and bleeding that he is best fit for an inpatient admission for continued monitoring for worsening of the bleeding and treatment of diverticulitis FINDINGS: Liver: Normal. No mass. Gallbladder and bile ducts: Normal. No calcified stones. No ductal dilation. Pancreas: Normal. No ductal dilation. Spleen: Normal. No splenomegaly. Adrenal glands: Normal. No mass. Kidneys and ureters: Normal. No hydronephrosis. Stomach and bowel: There are multiple diverticula throughout the sigmoid colon, with wall thickening and mild pericolonic inflammatory changes, consistent with acute sigmoid diverticulitis. Appendix: The appendix is normal. Intraperitoneal space: Unremarkable. No free air. No significant fluid collection. Vasculature: Unremarkable. No abdominal aortic aneurysm. Lymph nodes: Unremarkable. No enlarged lymph nodes. Urinary bladder: Unremarkable as visualized. Reproductive: Unremarkable as visualized. Bones/joints: There are multilevel degenerative changes of the visualized thoracolumbar spine. There is no acute osseous pathology. Soft tissues: Unremarkable. IMPRESSION: Findings consistent with acute sigmoid diverticulitis. No evidence of free intraperitoneal air or loculated extraluminal fluid collection to suggest perforation or abscess. Thank you for allowing us to participate in the care of your patient. Dictated and Authenticated by: Dhruv Arambula MD 05/04/2022 7:50 AM Eastern Time ([place] & [place]) HPI General Date/Time Provider Initiated Documentation: 05/04/22 04:42. HPI Narrative: This is a 62-year-old male with a past medical history of diabetes mellitus, previous heart attack with stent, ulcerative colitis, diverticulitis, who is on regular aspirin who presents today for evaluation of lower abdominal pain for the last 7 hours, as well as bright red blood and clots with his bowel movements. Patient describes the pain as achy. He has had 4 bowel movements since midnight that have had bright red blood and clots in them. He has had 1-2 episodes of vomiting and some mild nausea as well. He denies any chest or epigastric pain. He has had diverticulitis before and states that it presented similar to this. He denies taking any aspirin for the last week or so. He is not on any other blood thinners. No other complaints at this time. No other modifying factors. Related Data Home Medications Medication Instructions Recorded Confirmed fluocinonide-emollient 0.05 % 60 g topical PRN PRN ##1 05/21/13 05/04/22 topical cream (Fluocinonide-E) metformin 500 mg tablet,extended 1,000 mg PO BID 05/20/14 05/04/22 release 24 hr levothyroxine 25 mcg tablet 25 mcg PO DAILY 02/25/15 05/04/22 atorvastatin 80 mg tablet 80 mg PO DAILY #90 tab-caps 05/04/17 05/04/22 acetaminophen 500 mg tablet 500 mg PO Q8H PRN PRN 06/16/18 05/04/22 (Tylenol Extra Strength) cholecalciferol (vitamin D3) 25 1,000 unit PO DAILY 06/16/18 05/04/22 mcg (1,000 unit) capsule (Vitamin D3) tamsulosin 0.4 mg capsule (Flomax) 0.4 mg PO DAILY 06/16/18 05/04/22 aspirin 81 mg tablet,delayed 81 mg PO DAILY 05/08/19 05/04/22 release (Adult Low Dose Aspirin) empagliflozin 25 mg tablet 25 mg PO DAILY 05/08/19 05/04/22 (Jardiance) ketoconazole 2 % topical cream 1 applic topical BID PRN 05/08/19 05/04/22 paroxetine HCl 30 mg tablet 30 mg PO DAILY 05/08/19 05/04/22 triamcinolone acetonide 0.1 % 1 applic topical BID 05/08/19 05/04/22 topical cream nitroglycerin 0.4 mg sublingual 0.4 mg sublingual PRN PRN chest 10/12/20 05/04/22 tablet (Nitrostat) pain #10 tabs furosemide 20 mg tablet 20 mg PO DAILY #90 tabs 11/16/20 05/04/22 dulaglutide 0.75 mg/0.5 mL 1.5 mg subcut QWEEK 02/14/21 05/04/22 subcutaneous pen injector (Trulicity) metoprolol tartrate 50 mg tablet 50 mg PO BID 02/14/21 05/04/22 amlodipine 5 mg tablet 2.5 mg PO DAILY 07/06/21 05/04/22 losartan 25 mg tablet 25 mg PO DAILY #90 tabs 09/26/21 05/04/22 glipizide 5 mg tablet 2.5 mg PO DAILY 02/01/22 05/04/22 bisacodyl 5 mg tablet,delayed 5 mg PO ONCE colonscopy bowel prep 04/18/22 05/04/22 release (Dulcolax (bisacodyl)) #4 tabs polyethylene glycol 3350 17 238 g PO ONCE colonoscopy prep 04/18/22 04/18/22 gram/dose oral powder #238 grams benzonatate 100 mg capsule 1 cap PO TID PRN 05/04/22 05/04/22 Previous Rx's Medication Instructions Recorded atorvastatin 80 mg tablet 80 mg PO DAILY #90 tab-caps 05/04/17 nitroglycerin 0.4 mg sublingual 0.4 mg sublingual PRN PRN chest 10/12/20 tablet (Nitrostat) pain #10 tabs furosemide 20 mg tablet 20 mg PO DAILY #90 tabs 11/16/20 losartan 25 mg tablet 25 mg PO DAILY #90 tabs 09/26/21 bisacodyl 5 mg tablet,delayed 5 mg PO ONCE colonscopy bowel prep 04/18/22 release (Dulcolax (bisacodyl)) #4 tabs polyethylene glycol 3350 17 238 g PO ONCE colonoscopy prep 04/18/22 gram/dose oral powder #238 grams Allergies Allergy/AdvReac Type Severity Reaction Status Date / Time NIGEL Inhibitors AdvReac Cough Verified 05/04/22 05:09 codeine AdvReac Nausea Verified 05/04/22 05:09 gabapentin AdvReac vision Verified 05/04/22 05:09 trouble, dizzy,nausea lisinopril AdvReac cough Verified 05/04/22 05:09 General TIFFANI: 3 Review of Systems All systems reviewed & are unremarkable except as noted in HPI and below PFSH All Active Problems (Updated 05/04/22 @ 07:47 by Paco Coles DO) Diverticulitis (Chronic) Rectal/anal hemorrhage (Acute) Intention tremor (Acute 01/08/13) Candidal intertrigo (Acute) Tinnitus (Acute) Sensorineural hearing loss of both ears (Acute) Chest pain (Acute) Left rotator cuff tear (Acute) Biceps tendinitis of left shoulder (Acute) Bursitis of left shoulder (Acute) DJD of left AC (acromioclavicular) joint (Acute) Left carpal tunnel syndrome (Acute) Screening for colon cancer (Acute) Left shoulder pain (Acute) Elevated bilirubin (Acute) Lung nodule (Acute) Trochanteric bursitis of both hips (Acute) Hearing loss in right ear (Acute) Lateral epicondylitis (Acute) Memory impairment (Acute) Dyspepsia (Acute) Angina pectoris (Chronic) Adhesive capsulitis of left shoulder (Acute) Lumbar spinal stenosis (Acute) Subclinical hypothyroidism (Acute) Anxiety (Chronic) Depression (Chronic) Vitamin deficiency (Acute) No-show for appointment (Acute) Medical History Chronic back pain Diabetic peripheral neuropathy Hx of type 2 diabetes mellitus Spinal stenosis Surgical History Colonoscopy - MAC Coronary Stent x3 Hx of cardiac catheterization 09/2020x3 stents placed Hx of knee surgery right Family History Father Heart disease Social History Smoking/Tobacco Use Status: Former Tobacco Use Quit Date: 07/23/97 Tobacco: How many years used: 29 Smoking risk assessment performed?: Yes Alcohol Intake: former Year quit: 1997 Drug use: Daily Substance use type: marijuana Details: Only at HS Current gender identity: male What type of physical activity do you participate in: walking Duration: < 15 minutes/day Frequency: 3-4 times per week Do you feel safe at home: Yes Do you feel safe in your relationship?: Yes Additional Social history: lives alone Exam Narrative Exam Narrative: 1.Const: Well-nourished, Well-developed, appearing stated age 2.Eyes: PERRL, no conjunctival injection, and symmetrical lids. 3.ENT: Atraumatic external nose and ears. Moist MM. Neck: Symmetric, trachea midline, No thyromegaly. 4.CVS: +S1/S2, No murmurs or gallops. Peripheral pulses 2+ and equal in all extremities. Brisk capillary refill in all extremities. 5.RESP: Unlabored respiratory effort. Clear to auscultation bilaterally. No wheezes rales or rhonchi 6.GI: Soft, nondistended. No guarding or rebound. Mild tenderness in the left lower quadrant and lower abdominal region. No pain at McBurney's point. Negative Callejas sign. No genital tenderness. No scrotal tenderness. Mild bright red blood in the stool. 7.MSK: Normocephalic/Atraumatic, Extremities w/o deformity or ttp No cyanosis or clubbing, Normal movement of all extremities 8.Skin: Warm, Dry. No rashes or lesions. 9.Neuro: health services information specialist II-XII grossly intact. Sensation grossly intact, no focal neurologic deficits. 10.Psych: (AAO) x3. Appropriate mood and affect
[2022-05-04] MEDS: Normal Saline 500 ML IV (05:20)
[2022-05-04] MEDS: Ondansetron 4 MG/2 ML VIAL 8 MG IVP (05:26)
[2022-05-04] MEDS: MORPHine 4 MG/ML SYR IVP ×3 (05:28→12:27)
[2022-05-04 05:53] LABS: ALT 38 U/L (16-63); AST 16 U/L (15-37); Albumin 3.9 g/dL (3.4-5.0); Alkaline Phosphatase 134 U/L (46-116); Anion Gap 9.6 mmol/L (3-11); BUN 20 mg/dL (7-18); CO2 27.4 mmol/L (21.0-32.0); CREATININE 0.9 mg/dL (0.70-1.30); Calcium 9.3 mg/dL (8.5-10.1); Chloride 100 mmol/L (98-107); Estimated GFR 97.17 (mL/min/1.73m2); Glucose 198 mg/dL (74-106); Lipase 64 U/L (73-393); Sodium 137 mmol/L (136-145); Total Protein 7.7 g/dL (6.4-8.2)
[2022-05-04 05:57] LABS: INR 0.9 (0.9-1.1); PTT Activated 24.1 sec (21.0-27.5); Prothrombin Time 9.5 sec (9.3-11.0)
[2022-05-04] MEDS: Omnipaque 350 MG/ML 100 ML BTL IJ (05:58)
[2022-05-04 06:05] LABS: Bilirubin Negative (Negative); Blood Negative (Negative); Clarity Clear (Clear); Glucose >=1000 mg/dL (Negative); Ketones Trace mg/dL (Negative); Leukocyte Esterase Negative (Negative); Nitrite Negative (Negative); Urobilinogen 0.2 EU/dL (Up TO 0.2)
[2022-05-04 06:14] LABS: Abs Immature Grans 0.02 10^3/uL (0.0-0.06); Absolute Basophil Count 0.03 10^3/uL (0.0-0.2); Absolute Eosinophil Count 0.03 10^3/uL (0.0-0.7); Absolute Lymphocyte Count 0.84 10^3/uL (1.2-3.4); Absolute Monocyte Count 0.53 10^3/uL (0.1-0.8); Basophils % 0.4; Eosinophils % 0.4; HCT 40.5 % (40.0-50.0); HGB 13.5 g/dL (13.5-17.5); Immature Grans % 0.3; Lymphocytes % 10.8; MCH 28.1 pg (27.0-33.0); MCHC 33.3 % (32.0-36.0); MCV 84 fL (80-95); MPV 10.2 fL (8.0-11.0); Monocytes % 6.8; Neutrophils % 81.3; Platelet Count 181 10^3/uL (130-400); RDW 13.1 % (11.8-14.1); RDW-SD 40.3 fL; WBC 7.75 10^3/uL (4.4-10.8)
[2022-05-04] MEDS: CIPROFLOXACIN 400 MG/200 ML BAG 200 MG IVPB ×2 (07:21→18:10)
[2022-05-04] MEDS: Ondansetron 4 MG/2 ML VIAL (07:33)
--- NOTE | 2022-05-04 07:50 | DI.VRAD_ITS ---
PROCEDURE INFORMATION: Exam: CT Abdomen And Pelvis With Contrast Exam date and time: 05/04/2022 5:44 AM Age: 62 years old Clinical indication: Other: Blood in stool; Abdominal pain; Localized; Lower; Additional info: Lower abd pain, blood in stools TECHNIQUE: Imaging protocol: Computed tomography of the abdomen and pelvis with contrast. Radiation optimization: All CT scans at this facility use at least one of these dose optimization techniques: automated exposure control; mA and/or kV adjustment per patient size (includes targeted exams where dose is matched to clinical indication); or iterative reconstruction. Contrast material: OMNI 350; Contrast volume: 100 ml; Contrast route: INTRAVENOUS (IV); COMPARISON: CT CHEST/ABD/PEL W 07/29/2020 5:06 PM FINDINGS: Liver: Normal. No mass. Gallbladder and bile ducts: Normal. No calcified stones. No ductal dilation. Pancreas: Normal. No ductal dilation. Spleen: Normal. No splenomegaly. Adrenal glands: Normal. No mass. Kidneys and ureters: Normal. No hydronephrosis. Stomach and bowel: There are multiple diverticula throughout the sigmoid colon, with wall thickening and mild pericolonic inflammatory changes, consistent with acute sigmoid diverticulitis. Appendix: The appendix is normal. Intraperitoneal space: Unremarkable. No free air. No significant fluid collection. Vasculature: Unremarkable. No abdominal aortic aneurysm. Lymph nodes: Unremarkable. No enlarged lymph nodes. Urinary bladder: Unremarkable as visualized. Reproductive: Unremarkable as visualized. Bones/joints: There are multilevel degenerative changes of the visualized thoracolumbar spine. There is no acute osseous pathology. Soft tissues: Unremarkable. IMPRESSION: Findings consistent with acute sigmoid diverticulitis. No evidence of free intraperitoneal air or loculated extraluminal fluid collection to suggest perforation or abscess. Dictated and Authenticated by: Dhruv Arambula MD. Ordering:MALU Antonio MD
--- NOTE | 2022-05-04 08:17 | W.EDPROG ---
Date of service: 05/04/22 Time of Service: 08:00 Medical Decision Making 0800 -- Please see Dr. Coles's note for initial presentation, exam and plan. Case endorsed to follow-up with hospitalist with plan for admission for IV antibiotics and pain control [id number] --Case discussed with hospitalist accepts patient for admission. 62-year-old male with a history of diverticulitis, coronary artery disease, hypertension, hyperlipidemia, diabetes presents with vomiting, blood in stool and lower abdominal pain since last night. His abdomen is obese and tender in the lower aspect. He has been given 2 doses of morphine and still complaining of pain and nausea. We will order a dose of IV Dilaudid and Reglan. Patient agreeable with plan for admission. Medical Records Medical records reviewed: Yes I reviewed the patient's medical records. Sign Out Sign Out Data: Sign Out Comment: Bright red blood and clots tonight. No more bleeding since here. Lower abdominal pain. Diverticulitis on scan with no perforation. Cipro Flagyl started. Last updated by Paco Coles DO at 05/04/22 08:09 Discharge Plan Disposition Patient Disposition: HOME Condition: Stable Discharge Details Clinical Impression: Diverticulitis Primary Care Provider: Андрей Coello ED Provider: Tanya Jensen Home Meds and New Rx's Prescriptions: No Action metoprolol tartrate 50 mg tablet 50 mg PO BID Label Comments: 02/14/21 from PCP list who writes for this medication. RH glipizide 5 mg tablet 2.5 mg PO DAILY Jardiance 25 mg tablet 25 mg PO DAILY aspirin [Adult Low Dose Aspirin] 81 mg tablet,delayed release (DR/EC) 81 mg PO DAILY paroxetine HCl 30 mg tablet 30 mg PO DAILY triamcinolone acetonide 0.1 % cream 1 applic TP BID ketoconazole 2 % cream 1 applic TP BID PRN amlodipine 5 mg tablet 2.5 mg PO DAILY nitroglycerin [Nitrostat] 0.4 mg tablet, sublingual 0.4 mg Sublingual PRN PRN (Reason: chest pain) Qty: 10 12RF furosemide 20 mg tablet 20 mg PO DAILY Qty: 90 3RF Trulicity 0.75 mg/0.5 mL pen injector 1.5 mg subcut QWEEK polyethylene glycol 3350 17 gram/dose powder 238 g PO ONCE Qty: 238 0RF Rx Instructions: take per colonoscopy instructions bisacodyl [Dulcolax (bisacodyl)] 5 mg tablet,delayed release (DR/EC) 5 mg PO ONCE Qty: 4 0RF Rx Instructions: take per colonoscopy instructions fluocinonide-emollient [Fluocinonide-E] 60 GM cream 60 g Topical PRN PRNQty: 1 Rx Instructions: use on hands but not elsewhere.HE levothyroxine 25 MCG tablet 25 mcg PO DAILY atorvastatin 80 MG tablet 80 mg PO DAILY Qty: 90 2RF losartan 25 mg tablet 25 mg PO DAILY Qty: 90 3RF metformin 500 MG tablet extended release 24 hr 1,000 mg PO BID acetaminophen [Tylenol Extra Strength] 500 mg Tablet 500 mg PO Q8H PRN PRN tamsulosin [Flomax] 0.4 mg Capsule 0.4 mg PO DAILY cholecalciferol (vitamin D3) [Vitamin D3] 1,000 unit Capsule 1,000 unit PO DAILY benzonatate 100 mg capsule 1 cap PO TID PRN Label Comments: 1 capsule by mouth three times a day As needed for cough
[2022-05-04] MEDS: metroNIDAZOLE 500 MG/100 ML BAG 100 MG IVPB ×3 (08:30→19:53)
[2022-05-04] MEDS: HYDROmorphone 2 MG/ML SYR 1 MG IVP ×2 (09:35→16:44)
[2022-05-04 09:37] LABS: Source Nasal/Nares
[2022-05-04 10:08] LABS: COVID-19 PCR Negative (Negative)
[2022-05-04] MEDS: Lactated Ringers 1,000 ML 150 ML IV ×2 (10:16→17:27)
[2022-05-04] MEDS: Ondansetron 4 MG/2 ML VIAL IVP ×2 (12:27→19:53)
[2022-05-04] MEDS: Insulin Aspart 300 UNITS/3 ML PEN SC (12:28)
[2022-05-04] MEDS: Prochlorperazine 10 MG/2 ML VIAL IVP (13:37)
[2022-05-04] MEDS: Normal Saline Flush 10 ML SYR ×2 (13:45→16:45)
[2022-05-04] MEDS: Atorvastatin 40 MG TAB 80 MG PO (14:21)
[2022-05-04] MEDS: Losartan 25 MG TAB PO (14:21)
[2022-05-04] MEDS: PARoxetine 10 MG TAB 30 MG PO (14:21)
[2022-05-04] MEDS: amLODIPine 5 MG TAB 2.5 MG PO (14:21)
[2022-05-04] MEDS: Aspirin E.C. 81 MG TABEC PO (14:21)
[2022-05-04] MEDS: Tamsulosin 0.4 MG CAPCR PO (14:22)
[2022-05-04] MEDS: Furosemide 20 MG TAB PO (14:22)
--- NOTE | 2022-05-04 14:52 | HPE_ITS ---
Date of service: 05/04/22 Time of Service: 14:52 Assessment and Plan Assessment and plan (1) Diverticula of intestine: Status: Acute Assessment and plan: bowel rest, increase fluid intake, Cipro in combination with Metronidazole IV change to oral when tolerating PO intake. Zofran or prochlorperazine IV for nausea Dilaudid IV for pain Nutrition education WBC 7.75, K 4.0, Lipase 64 ? (2) Rectal/anal hemorrhage: Status: Acute Assessment and plan: As above; he had a colonoscopy scheduled in the past couple of weeks that was postponed s/t his having a cough. Surgery consult done. H&H ; recheck H&H 05/05/2022 (3) Diabetes mellitus: Status: None Assessment and plan: Hold oral hypoglycemics; FSBG AC HS, sliding scale insulin, Lantus @ HS glucose 200-400 since arrival Recheck glucose 05/05/2022 (4) Hypertension: Status: None Assessment and plan: Stable; continue home meds; monitor (5) CAD (coronary artery disease): Status: None Assessment and plan: Stable; continue home medications - metoprolol, furosemide, , hold Aspirin s/t bleeding. (6) Hypothyroid: Status: Chronic Assessment and plan: Last TSH 3.51 on 08/2021; continue home medication (7) Depression: Status: Chronic Assessment and plan: Stable; continue paroxetine (8) WILLIS (obstructive sleep apnea): Status: None (9) Hyperlipidemia: Status: None Assessment and plan: Stable; continue atorvastatin (10) DVT prophylaxis: Status: Acute Assessment and plan: SCDs Pharmacological anticoag held s/t bleeding (11) Discharge planning issues: Status: Acute Assessment and plan: Once vital signs are normal, abdominal pain has resolved, no significant leukocytosis and is tolerating PO; home in < 3 days on oral abx 10-14 days, He does not need any services. History of Present Illness History of Present Illness Chief Complaint: Abdominal pain/rectal bleeding Narrative: This is a 62-year-old male patient with a past medical history of diabetes mellitus, previous heart attack with stent, ulcerative colitis, diverticulitis, who presented today to the [facility] emergency department for evaluation of lower abdominal pain he had been experiencing for 7 hours, as well as bright red blood and clots when having a bowel movement. The patient describes the pain as achy.? He has had 4 bowel movements since midnight that have had bright red blood and clots in them.? He has had 1-2 episodes of vomiting and some mild nausea as well.? He denied any chest or epigastric pain.? He has had diverticulitis before and states that it presented similar to this.? He denied taking any aspirin for the last week or so.? He is not on any other blood thinners.? No other complaints at this time.? No other modifying factors. While in the emergency department her received IV fluids, pain and nausea medications with modest relief.? His vital signs were stable. Laboratory work-up demonstrated no white count, bandemia or left shift.? He does have mild lymphopenia.?Lipase normal.? Urinalysis shows no evidence of infection. Cipro and Flagyl were given.? The CT scan showed evidence of diverticulitis without perforation. He continued to have moderate pain and was admitted to the medical floor for pain control, IV fluids and pain/nausea management. ? Review of Systems All systems reviewed & are unremarkable except as noted in HPI and below PFSH All Active Problems (Updated 05/04/22 @ 21:27 by Nara De La Cruz DO) Enlarged liver (Acute) Coronary artery calcification seen on CAT scan (Acute) Hypothyroid (Chronic) DVT prophylaxis (Acute) Discharge planning issues (Acute) Diverticula of intestine (Acute) Diverticulitis (Chronic) Rectal/anal hemorrhage (Acute) Intention tremor (Acute 01/08/13) Candidal intertrigo (Acute) Tinnitus (Acute) Sensorineural hearing loss of both ears (Acute) Chest pain (Acute) Left rotator cuff tear (Acute) Biceps tendinitis of left shoulder (Acute) Bursitis of left shoulder (Acute) DJD of left AC (acromioclavicular) joint (Acute) Left carpal tunnel syndrome (Acute) Screening for colon cancer (Acute) Left shoulder pain (Acute) Elevated bilirubin (Acute) Lung nodule (Acute) Trochanteric bursitis of both hips (Acute) Hearing loss in right ear (Acute) Lateral epicondylitis (Acute) Memory impairment (Acute) Dyspepsia (Acute) Angina pectoris (Chronic) Adhesive capsulitis of left shoulder (Acute) Lumbar spinal stenosis (Acute) Subclinical hypothyroidism (Acute) Anxiety (Chronic) Depression (Chronic) Vitamin deficiency (Acute) No-show for appointment (Acute) Medical History Chronic back pain Diabetic peripheral neuropathy Hx of type 2 diabetes mellitus Spinal stenosis Surgical History Colonoscopy - MAC Coronary Stent x3 Hx of cardiac catheterization 09/2020x3 stents placed Hx of knee surgery right Family History Father Heart disease Social History Smoking/Tobacco Use Status: Former Tobacco Use Quit Date: 07/23/97 Tobacco: How many years used: 29 Smoking risk assessment performed?: Yes Alcohol Intake: former Year quit: 1997 Drug use: Daily Substance use type: marijuana Details: Only at HS Current gender identity: male What type of physical activity do you participate in: walking Duration: < 15 minutes/day Frequency: 3-4 times per week Do you feel safe at home: Yes Do you feel safe in your relationship?: Yes Additional Social history: lives alone Meds Allergies and Home Medications Allergies Allergy/AdvReac Type Severity Reaction Status Date / Time NIGEL Inhibitors AdvReac Cough Verified 05/04/22 05:09 codeine AdvReac Nausea Verified 05/04/22 05:09 gabapentin AdvReac vision Verified 05/04/22 05:09 trouble, dizzy,nausea lisinopril AdvReac cough Verified 05/04/22 05:09 Home Medications Medication Instructions Recorded Confirmed Type fluocinonide-emollient 0.05 % 60 g topical PRN PRN ##1 05/21/13 05/04/22 History topical cream (Fluocinonide-E) metformin 500 mg tablet,extended 1,000 mg PO BID 05/20/14 05/04/22 History release 24 hr levothyroxine 25 mcg tablet 25 mcg PO DAILY 02/25/15 05/04/22 History atorvastatin 80 mg tablet 80 mg PO DAILY #90 tab-caps 05/04/17 05/04/22 Rx acetaminophen 500 mg tablet 500 mg PO Q8H PRN PRN 06/16/18 05/04/22 History (Tylenol Extra Strength) cholecalciferol (vitamin D3) 25 1,000 unit PO DAILY 06/16/18 05/04/22 History mcg (1,000 unit) capsule (Vitamin D3) tamsulosin 0.4 mg capsule (Flomax) 0.4 mg PO DAILY 06/16/18 05/04/22 History aspirin 81 mg tablet,delayed 81 mg PO DAILY 05/08/19 05/04/22 History release (Adult Low Dose Aspirin) empagliflozin 25 mg tablet 25 mg PO DAILY 05/08/19 05/04/22 History (Jardiance) ketoconazole 2 % topical cream 1 applic topical BID PRN 05/08/19 05/04/22 History paroxetine HCl 30 mg tablet 30 mg PO DAILY 05/08/19 05/04/22 History triamcinolone acetonide 0.1 % 1 applic topical BID 05/08/19 05/04/22 History topical cream nitroglycerin 0.4 mg sublingual 0.4 mg sublingual PRN PRN chest 10/12/20 05/04/22 Rx tablet (Nitrostat) pain #10 tabs furosemide 20 mg tablet 20 mg PO DAILY #90 tabs 11/16/20 05/04/22 Rx dulaglutide 0.75 mg/0.5 mL 1.5 mg subcut QWEEK 02/14/21 05/04/22 History subcutaneous pen injector (Trulicity) metoprolol tartrate 50 mg tablet 50 mg PO BID 02/14/21 05/04/22 History amlodipine 5 mg tablet 2.5 mg PO DAILY 07/06/21 05/04/22 History losartan 25 mg tablet 25 mg PO DAILY #90 tabs 09/26/21 05/04/22 Rx glipizide 5 mg tablet 2.5 mg PO DAILY 02/01/22 05/04/22 History bisacodyl 5 mg tablet,delayed 5 mg PO ONCE colonscopy bowel prep 04/18/22 05/04/22 Rx release (Dulcolax (bisacodyl)) #4 tabs polyethylene glycol 3350 17 238 g PO ONCE colonoscopy prep 04/18/22 04/18/22 Rx gram/dose oral powder #238 grams benzonatate 100 mg capsule 1 cap PO TID PRN 05/04/22 05/04/22 History Exam Const General: cooperative and no acute distress Nutritional Appearance: overweight Orientation: alert, awake and oriented x3 Limitations: mental status not altered Resp Effort & Inspection: normal respiratory effort and able to speak in complete sentences Cardio Rate: regular rate Rhythm: regular rhythm Heart Sounds: S1 normal, S2 normal, no click, no gallops, no murmurs and no rubs GI Inspection: normal to inspection, non-distended, obesity and no visible pulsation Palpation: soft, no hepatosplenomegaly, no guarding and tender Auscultation: hyperactive bowel sounds Rectal Exam: deferred Other: ED reports BRB from rectum Results Labs Result diagrams: 05/05/22 06:36 05/05/22 06:36 Labs: Laboratory Results - last 24 hr 05/04/22 05/04/22 05/04/22 05:05 05:05 05:05 WBC 7.75 RBC 4.80 Hgb 13.5 Hct 40.5 MCV 84 MCH 28.1 MCHC 33.3 RDW 13.1 Plt Count 181 MPV 10.2 Immature Gran % 0.3 Neutrophils % 81.3 Lymphocytes % 10.8 Monocytes % 6.8 Eosinophils % 0.4 Basophils % 0.4 Nucleated RBC % 0.0 Absolute Neutrophils 6.30 Absolute Lymphocytes 0.84 L Absolute Monocytes 0.53 Absolute Eosinophils 0.03 Absolute Basophils 0.03 PT 9.5 INR 0.9 APTT 24.1 Sodium 137 Potassium 4.0 Chloride 100 Carbon Dioxide 27.4 Anion Gap 9.6 BUN 20 H Creatinine 0.9 Est GFR (CKD-EPI 2020) 97.17 Glucose 198 H Calcium 9.3 Total Bilirubin 1.0 AST 16 ALT 38 Alkaline Phosphatase 134 H Total Protein 7.7 Albumin 3.9 Lipase 64 Urine Color Urine Clarity Urine pH Ur Specific [place] Urine Protein Urine Ketones Urine Blood Urine Nitrite Urine Bilirubin Urine Urobilinogen Ur Leukocyte Esterase Urine Glucose COVID-19 Source SARS-CoV-2 (PCR) Patient ABO/Rh Antibody Screen 05/04/22 05/04/22 05/04/22 05:05 05:55 09:26 WBC RBC Hgb Hct MCV MCH MCHC RDW Plt Count MPV Immature Gran % Neutrophils % Lymphocytes % Monocytes % Eosinophils % Basophils % Nucleated RBC % Absolute Neutrophils Absolute Lymphocytes Absolute Monocytes Absolute Eosinophils Absolute Basophils PT INR APTT Sodium Potassium Chloride Carbon Dioxide Anion Gap BUN Creatinine Est GFR (CKD-EPI 2020) Glucose Calcium Total Bilirubin AST ALT Alkaline Phosphatase Total Protein Albumin Lipase Urine Color Yellow Urine Clarity Clear Urine pH 6.0 Ur Specific [place] 1.020 Urine Protein Negative Urine Ketones Trace H Urine Blood Negative Urine Nitrite Negative Urine Bilirubin Negative Urine Urobilinogen 0.2 Ur Leukocyte Esterase Negative Urine Glucose >=1000 H COVID-19 Source Nasal/Nares SARS-CoV-2 (PCR) Negative Patient ABO/Rh A Positive Antibody Screen NEGATIVE Last Vital Signs Temp 36 C L 05/04/22 12:43 Pulse 78 05/04/22 12:43 Resp 18 05/04/22 12:43 BP 145/82 H 05/04/22 12:43 Pulse Ox 97 05/04/22 12:43
[2022-05-04] MEDS: Levothyroxine 25 MCG TAB PO (16:44)
--- NOTE | 2022-05-04 17:13 | W.PM.PROGNOT ---
Date of Service Date of service: 05/04/22 Time of Service: 17:13 Assessment and Plan Assessment and plan (1) Diverticulitis: Status: Chronic Assessment and plan: -cipro/flagyl IS dvt prophalaxis walk CE in 3-4 weeks cont medical management monitor for further bleeding (2) Hypothyroid: Status: Chronic (3) Rectal/anal hemorrhage: Status: Acute (4) Diverticula of intestine: Status: Acute (5) WILLIS (obstructive sleep apnea): Status: None (6) Diabetes mellitus: Status: None (7) CAD (coronary artery disease): Status: None (8) Hyperlipidemia: Status: None (9) Hypertension: Status: None (10) Diabetic peripheral neuropathy: (11) Hx of type 2 diabetes mellitus: (12) Coronary artery calcification seen on CAT scan: Status: Acute (13) Enlarged liver: Status: Acute Subjective Subjective Interval history since last seen: Patient is a 62-year-old male who presented to the emergency room at about 4:00 this morning complaining of abdominal pain and rectal bleeding. He has a history of diverticula. He woke up around midnight with abdominal pain and significant nausea. He has had multiple bowel movements since that time and was passing bright red blood clots. At the time I am seeing him his pain is better it is mostly localized to the left lower quadrant suprapubic region. It does not radiate into the back. His nausea is better and he is thirsty. He does not have diffuse peritonitis. He is not having any fever or chills. He denies any unusual activity diet or trauma that could account for his change in status. He was actually scope scheduled for a colonoscopy but this had to be rescheduled because of a upper respiratory tract infection. He denies constipation or straining to move his bowels on a regular basis. He is not had any recent weight loss. Exam HENWI Other: No jaundice Edentulous + Nasal congestion Cardio Rate: regular rate Rhythm: regular rhythm Other: No active chest pain at the time of interview. GI Other: Abdomen is obese. Positive bowel sounds. Mild tenderness in left lower quadrant. No diffuse peritonitis. Objective Last Vital Signs Temp 36.1 C L 05/04/22 15:35 Pulse 86 05/04/22 15:35 Resp 18 05/04/22 15:35 BP 148/73 H 05/04/22 15:35 Pulse Ox 96 10/13/22 15:35 Laboratory Results - last 24 hr 05/04/22 05/04/22 05/04/22 05:05 05:05 05:05 WBC 7.75 RBC 4.80 Hgb 13.5 Hct 40.5 MCV 84 MCH 28.1 MCHC 33.3 RDW 13.1 Plt Count 181 MPV 10.2 Immature Gran % 0.3 Neutrophils % 81.3 Lymphocytes % 10.8 Monocytes % 6.8 Eosinophils % 0.4 Basophils % 0.4 Nucleated RBC % 0.0 Absolute Neutrophils 6.30 Absolute Lymphocytes 0.84 L Absolute Monocytes 0.53 Absolute Eosinophils 0.03 Absolute Basophils 0.03 PT 9.5 INR 0.9 APTT 24.1 Sodium 137 Potassium 4.0 Chloride 100 Carbon Dioxide 27.4 Anion Gap 9.6 BUN 20 H Creatinine 0.9 Est GFR (CKD-EPI 2020) 97.17 Glucose 198 H Calcium 9.3 Total Bilirubin 1.0 AST 16 ALT 38 Alkaline Phosphatase 134 H Total Protein 7.7 Albumin 3.9 Lipase 64 Urine Color Urine Clarity Urine pH Ur Specific [place] Urine Protein Urine Ketones Urine Blood Urine Nitrite Urine Bilirubin Urine Urobilinogen Ur Leukocyte Esterase Urine Glucose COVID-19 Source SARS-CoV-2 (PCR) Patient ABO/Rh Antibody Screen 05/04/22 05/04/22 05/04/22 05:05 05:55 09:26 WBC RBC Hgb Hct MCV MCH MCHC RDW Plt Count MPV Immature Gran % Neutrophils % Lymphocytes % Monocytes % Eosinophils % Basophils % Nucleated RBC % Absolute Neutrophils Absolute Lymphocytes Absolute Monocytes Absolute Eosinophils Absolute Basophils PT INR APTT Sodium Potassium Chloride Carbon Dioxide Anion Gap BUN Creatinine Est GFR (CKD-EPI 2020) Glucose Calcium Total Bilirubin AST ALT Alkaline Phosphatase Total Protein Albumin Lipase Urine Color Yellow Urine Clarity Clear Urine pH 6.0 Ur Specific [place] 1.020 Urine Protein Negative Urine Ketones Trace H Urine Blood Negative Urine Nitrite Negative Urine Bilirubin Negative Urine Urobilinogen 0.2 Ur Leukocyte Esterase Negative Urine Glucose >=1000 H COVID-19 Source Nasal/Nares SARS-CoV-2 (PCR) Negative Patient ABO/Rh A Positive Antibody Screen NEGATIVE
[2022-05-04] MEDS: Metoprolol 50 MG TAB PO (19:54)
[2022-05-05] MEDS: Insulin Aspart 300 UNITS/3 ML PEN SC ×3 (00:33→18:20)
[2022-05-05] MEDS: metroNIDAZOLE 500 MG/100 ML BAG 100 MG IVPB ×4 (01:37→20:14)
[2022-05-05] MEDS: HYDROmorphone 2 MG/ML SYR 1 MG IVP ×4 (03:20→20:14)
[2022-05-05] MEDS: Normal Saline Flush 10 ML SYR IVP ×5 (03:20→20:14)
[2022-05-05 03:27] VITALS: BP 114/72; PULSE 62; RESP 18; TEMP 36.5; O2SAT 97
[2022-05-05] MEDS: CIPROFLOXACIN 400 MG/200 ML BAG 200 MG IVPB ×2 (06:07→18:20)
[2022-05-05 06:53] LABS: Abs Immature Grans 0.02 10^3/uL (0.0-0.06); Absolute Basophil Count 0.03 10^3/uL (0.0-0.2); Absolute Eosinophil Count 0.12 10^3/uL (0.0-0.7); Absolute Lymphocyte Count 1.49 10^3/uL (1.2-3.4); Absolute Neutrophil Count 5.52 10^3/uL (1.2-6.7); Basophils % 0.4; Eosinophils % 1.5; HCT 37.3 % (40.0-50.0); HGB 11.9 g/dL (13.5-17.5); Immature Grans % 0.3; Lymphocytes % 19.2; MCH 27.4 pg (27.0-33.0); MCHC 31.9 % (32.0-36.0); MCV 86 fL (80-95); MPV 10.1 fL (8.0-11.0); Monocytes % 7.7; Neutrophils % 70.9; Platelet Count 150 10^3/uL (130-400); RBC 4.34 10^6/uL (4.36-5.78); RDW 13.3 % (11.8-14.1); WBC 7.78 10^3/uL (4.4-10.8)
[2022-05-05 07:06] LABS: Anion Gap 5.7 mmol/L (3-11); BUN 15 mg/dL (7-18); CO2 29.3 mmol/L (21.0-32.0); CREATININE 0.8 mg/dL (0.70-1.30); Calcium 8.7 mg/dL (8.5-10.1); Chloride 104 mmol/L (98-107); Estimated GFR 100.69 (mL/min/1.73m2); Glucose 159 mg/dL (74-106); Magnesium 1.9 mg/dL (1.8-2.4); Sodium 139 mmol/L (136-145)
[2022-05-05 07:57] VITALS: BP 125/69; PULSE 64; RESP 18; TEMP 36.6; O2SAT 97
[2022-05-05] MEDS: Atorvastatin 40 MG TAB 80 MG PO (08:25)
[2022-05-05] MEDS: Levothyroxine 25 MCG TAB PO (08:25)
[2022-05-05] MEDS: PARoxetine 10 MG TAB 30 MG PO (08:25)
[2022-05-05] MEDS: Furosemide 20 MG TAB PO (08:28)
[2022-05-05] MEDS: amLODIPine 5 MG TAB 2.5 MG PO (08:28)
[2022-05-05] MEDS: Metoprolol 50 MG TAB PO ×2 (08:28→20:15)
[2022-05-05] MEDS: Tamsulosin 0.4 MG CAPCR PO (08:28)
[2022-05-05] MEDS: Aspirin E.C. 81 MG TABEC PO (08:28)
[2022-05-05] MEDS: Losartan 25 MG TAB PO (08:28)
[2022-05-05 10:31] LABS: Bilirubin Negative (Negative); Blood Negative (Negative); Clarity Clear (Clear); Glucose 100 mg/dL (Negative); Ketones Negative (Negative); Leukocyte Esterase Negative (Negative); Nitrite Negative (Negative); Specific Gravity 1.015 (1.005-1.025); Urobilinogen 0.2 EU/dL (Up TO 0.2); pH 5.5 (5-8)
--- NOTE | 2022-05-05 10:56 | PDOC.CMIN ---
- If Service Date Differs Date of service: 05/05/22 Time of Service: 10:56 Care Management Initial Assess REASON FOR HOSPITALIZATION:: Acute Diverticulitis PAST MEDICAL HISTORY/PAST SURGICAL HISTORY:: Medical History . Chronic back pain. Diabetic peripheral neuropathy. Hx of type 2 diabetes mellitus. Spinal stenosis. Surgical History . Colonoscopy - MAC. Coronary Stent. x3. Hx of cardiac catheterization. 09/2020x3 stents placed. Hx of knee surgery. right PREVIOUS FUNCTIONAL STATUS/SOCIAL/FAMILY SUPPORTS:: Elias resides in [facility], his sister Galina resides locally as well as his step daughter, Bev. He is independent at baseline in the community. CURRENT FUNCTIONAL STATUS:: Elias continues to be closely monitored, remains on IV Medications for pain, he is up independently. Diet advanced late afternoon; monitor for toleration. ADVANCE DIRECTIVES:: None on file. Has patient been provided with info about the portal/API?: Yes Did the patient sign up for the portal?: Yes CODE STATUS:: Full Code INSURANCE COVERAGE / FINANCIAL ISSUES:: [employer] CURRENT HOME/COMMUNITY SERVICES/EQUIPMENT:: Grab bars, glucometer PRIMARY CARE PHYSICIAN:: Андрей Coello POTENTIAL DISCHARGE NEEDS:: Follow up appointments. PATIENT/FAMILY EDUCATION NEEDS:: Review discharge instructions, discuss Ask Me Three. ANTICIPATED BARRIERS TO DISCHARGE:: None identified. TRANSPORTATION:: Via private vehicle with family. PLAN:: Anticipate Elias will return home when ready per MD. He will follow up with his PCP and plan of care as prescribed, he will transport via private vehicle with family.
[2022-05-05 11:17] VITALS: BP 101/66; PULSE 62; RESP 16; TEMP 36.9; O2SAT 96
--- NOTE | 2022-05-05 15:39 | CHAPLAIN ---
Elias was in bed when I visited. He was pleasant and engaged in a conversation. I explained my role and offered support.
--- NOTE | 2022-05-05 16:14 | PGE_ITS ---
Date of Service Date of service: 05/05/22 Time of Service: 16:14 Assessment and Plan Assessment and plan (1) Diverticula of intestine: Status: Acute Assessment and plan: bowel rest, increase fluid intake, advanced to clears; Cipro in combination with Metronidazole IV change to oral when tolerating PO intake. Zofran or prochlorperazine IV for nausea Dilaudid IV for pain, reminded to ask nursing for medication if he is in pain, he reports not feeling relief over night - it had been ~ 9h since last medicated for pain. Nutrition education WBC 7.78, K 4.0 ? (2) Rectal/anal hemorrhage: Status: Acute Assessment and plan: As above; he had a colonoscopy scheduled in the past couple of weeks that was postponed s/t his having a cough. Surgery consult done. Surgery recommends: cipro/flagyl IS dvt prophalaxis - SCDs walk CE in 3-4 weeks cont medical management monitor for further bleeding H&H ; recheck H&H 05/05/2022 (3) Diabetes mellitus: Status: None Assessment and plan: Hold oral hypoglycemics; FSBG AC HS, sliding scale insulin, Lantus @ HS; glucose 130-160s Recheck glucose 05/06/2022 (4) Hypertension: Status: None Assessment and plan: Stable; continue home meds; monitor (5) CAD (coronary artery disease): Status: None Assessment and plan: Stable; continue home medications - metoprolol, furosemide, hold Aspirin s/t bleeding. Blood pressure 100/60- 120/70s (6) Hypothyroid: Status: Chronic Assessment and plan: Last TSH 3.51 on 08/2021; continue home medication (7) Depression: Status: Chronic Assessment and plan: Stable; continue paroxetine (8) WILLIS (obstructive sleep apnea): Status: None (9) Hyperlipidemia: Status: None Assessment and plan: Stable; continue atorvastatin (10) DVT prophylaxis: Status: Acute Assessment and plan: SCDs Pharmacological anticoag held s/t bleeding (11) Discharge planning issues: Status: Acute Assessment and plan: Once vital signs are normal, abdominal pain has resolved, no significant leukocytosis and is tolerating PO; home in < 3 days on oral abx 10-14 days, He does not need any services. He was adv to clear liq diet today Discussed w Dr Shepherd Subjective Subjective Patient reports: no new complaints, nausea (described as intermittant, better with antiemetics.) and afebrile; denies shortness of breath Interval history since last seen: Reports pain comes and goes, states he feels like he has something on his right lower abdomen that is stopping him from being able to void. He is voiding without difficulty, 450 ml, clear yellow. Denies urgency, frequency or pain with urination. Exam Narrative Exam Narrative: Semi fowlers in bed, awake, alert, conversant. Const General: cooperative and no acute distress Nutritional Appearance: overweight Orientation: alert, awake and oriented x3 Limitations: mental status not altered Resp Effort & Inspection: normal respiratory effort and able to speak in complete sentences Cardio Rate: regular rate Rhythm: regular rhythm Heart Sounds: S1 normal, S2 normal, no click, no gallops, no murmurs and no rubs GI Inspection: normal to inspection, non-distended, obesity and no visible pulsation Palpation: soft, no hepatosplenomegaly, no guarding and tender Auscultation: hyperactive bowel sounds Rectal Exam: deferred Objective Last Vital Signs Temp 36.9 C 05/05/22 11:17 Pulse 62 05/05/22 11:17 Resp 16 05/05/22 11:17 BP 101/66 05/05/22 11:17 Pulse Ox 96 05/05/22 11:17 Laboratory Results - last 24 hr 05/05/22 05/05/22 05/05/22 06:36 06:36 09:02 WBC 7.78 RBC 4.34 L Hgb 11.9 L Hct 37.3 L MCV 86 MCH 27.4 MCHC 31.9 L RDW 13.3 Plt Count 150 MPV 10.1 Immature Gran % 0.3 Neutrophils % 70.9 Lymphocytes % 19.2 Monocytes % 7.7 Eosinophils % 1.5 Basophils % 0.4 Nucleated RBC % 0.0 Absolute Neutrophils 5.52 Absolute Lymphocytes 1.49 Absolute Monocytes 0.60 Absolute Eosinophils 0.12 Absolute Basophils 0.03 Sodium 139 Potassium 4.0 Chloride 104 Carbon Dioxide 29.3 Anion Gap 5.7 BUN 15 Creatinine 0.8 Est GFR (CKD-EPI 2020) 100.69 Glucose 159 H Calcium 8.7 Magnesium 1.9 Urine Color Yellow Urine Clarity Clear Urine pH 5.5 Ur Specific [place] 1.015 Urine Protein Negative Urine Ketones Negative Urine Blood Negative Urine Nitrite Negative Urine Bilirubin Negative Urine Urobilinogen 0.2 Ur Leukocyte Esterase Negative Urine Glucose 100
[2022-05-05 16:16] VITALS: BP 122/70; PULSE 60; RESP 16; TEMP 36.7; O2SAT 96
--- NOTE | 2022-05-05 17:30 | SCONE_ITS ---
Date of service: 05/04/22 Time of Service: 18:00 Assessment and Plan Assessment and plan (1) Diverticulitis: Status: Chronic (2) Rectal/anal hemorrhage: Status: Acute (3) Enlarged liver: Status: Acute (4) Coronary artery calcification seen on CAT scan: Status: Acute (5) Hypothyroid: Status: Chronic Assessment and plan: ?Assessment and plan: -cipro/flagyl IS dvt prophalaxis walk CE in 3-4 weeks cont medical management monitor for further bleeding -Okay for routine DVT prophylaxis with Lovenox. -Follow-up in the office to reschedule colonoscopy. (6) Diverticula of intestine: Status: Acute (7) WILLIS (obstructive sleep apnea): Status: None (8) Diabetes mellitus: Status: None (9) CAD (coronary artery disease): Status: None (10) Hyperlipidemia: Status: None (11) Hypertension: Status: None (12) Chronic back pain: (13) Diabetic peripheral neuropathy: (14) Spinal stenosis: History of Present Illness Narrative: PROGRESS NOTE PATIENT NAME:Elias Schumacher UNIT #:? ? [id number] ADMITTING PROVIDER:Nara Jin DO ACCOUNT #: ? [id number] ? PRIMARY CARE PROVIDER: SAMMY HONEYCUTT MD ? DATE OF ADMIT:? ? 05/04/22 : ? 1960 ? Date of Service Date of service: 05/04/22 Time of Service: 17:13 Assessment and Plan Assessment and plan (1) Diverticulitis: ?Status:?Chronic ? ? ? Assessment and plan: -cipro/flagyl IS dvt prophalaxis walk CE in 3-4 weeks cont medical management monitor for further bleeding (2) Hypothyroid: ?Status:?Chronic (3) Rectal/anal hemorrhage: ?Status:?Acute (4) Diverticula of intestine: ?Status:?Acute (5) WILLIS (obstructive sleep apnea): ?Status:?None (6) Diabetes mellitus: ?Status:?None (7) CAD (coronary artery disease): ?Status:?None (8) Hyperlipidemia: ?Status:?None (9) Hypertension: ?Status:?None (10) Diabetic peripheral neuropathy: (11) Hx of type 2 diabetes mellitus: (12) Coronary artery calcification seen on CAT scan: ?Status:?Acute (13) Enlarged liver: ?Status:?Acute Subjective Subjective Interval history since last seen: Patient is a 62-year-old male who presented to the emergency room at about 4:00 this morning complaining of abdominal pain and rectal bleeding.? He has a history of diverticula.? He woke up around midnight with abdominal pain and significant nausea.? He has had multiple bowel movements since that time and was passing bright red blood clots. At the time I am seeing him his pain is better it is mostly localized to the left lower quadrant suprapubic region.? It does not radiate into the back.? His nausea is better and he is thirsty.? He does not have diffuse peritonitis.? He is not having any fever or chills.? He denies any unusual activity diet or trauma that could account for his change in status.? He was actually scope scheduled for a colonoscopy but this had to be rescheduled because of a upper respiratory tract infection.? He denies constipation or straining to move his bowels on a regular basis.? He is not had any recent weight loss. Review of Systems Constitutional Constitutional: Reports system reviewed and no additional complaints, except as documented Comments: Complete review of systems was done. Pertinent positive negatives are noted in HPI. PFSH All Active Problems (Updated 05/04/22 @ 21:27 by Nara De La Cruz, ) Enlarged liver (Acute) Coronary artery calcification seen on CAT scan (Acute) Hypothyroid (Chronic) DVT prophylaxis (Acute) Discharge planning issues (Acute) Diverticula of intestine (Acute) Diverticulitis (Chronic) Rectal/anal hemorrhage (Acute) Intention tremor (Acute 01/08/13) Candidal intertrigo (Acute) Tinnitus (Acute) Sensorineural hearing loss of both ears (Acute) Chest pain (Acute) Left rotator cuff tear (Acute) Biceps tendinitis of left shoulder (Acute) Bursitis of left shoulder (Acute) DJD of left AC (acromioclavicular) joint (Acute) Left carpal tunnel syndrome (Acute) Screening for colon cancer (Acute) Left shoulder pain (Acute) Elevated bilirubin (Acute) Lung nodule (Acute) Trochanteric bursitis of both hips (Acute) Hearing loss in right ear (Acute) Lateral epicondylitis (Acute) Memory impairment (Acute) Dyspepsia (Acute) Angina pectoris (Chronic) Adhesive capsulitis of left shoulder (Acute) Lumbar spinal stenosis (Acute) Subclinical hypothyroidism (Acute) Anxiety (Chronic) Depression (Chronic) Vitamin deficiency (Acute) No-show for appointment (Acute) Medical History Chronic back pain Diabetic peripheral neuropathy Hx of type 2 diabetes mellitus Spinal stenosis Surgical History Colonoscopy - MAC Coronary Stent x3 Hx of cardiac catheterization 09/2020x3 stents placed Hx of knee surgery right Family History Father Heart disease Social History Smoking/Tobacco Use Status: Former Tobacco Use Quit Date: 07/23/97 Tobacco: How many years used: 29 Smoking risk assessment performed?: Yes Alcohol Intake: former Year quit: 1997 Drug use: Daily Substance use type: marijuana Details: Only at Current gender identity: male What type of physical activity do you participate in: walking Duration: < 15 minutes/day Frequency: 3-4 times per week Do you feel safe at home: Yes Do you feel safe in your relationship?: Yes Additional Social history: lives alone [facility] Other: No jaundice. Edentulous. No JVD. Resp Effort & Inspection: normal respiratory effort and able to speak in complete sentences Auscultation: clear to auscultation bilaterally Cardio Jugular venous pressure: no JVD Rate: regular rate Rhythm: regular rhythm Other: No active chest pain or shortness of breath or productive cough at the time of interview. I did review Dr. Lozano's notes regarding his cardiac history. She did not feel any further cardiac testing was warranted at this time. Patient does have a history of cardiac stents GI Other: Abdomen is obese soft with good bowel sounds. He is not currently having any active bleeding at the time of interview. He has moderate left lower quadrant pain/ suprpubic pain. it does not radiate into the back. No peritonitis. Results Last Vital Signs Temp 36.7 C 05/05/22 16:16 Pulse 60 05/05/22 16:16 Resp 16 05/05/22 16:16 BP 122/70 05/05/22 16:16 Pulse Ox 96 05/05/22 16:16 Labs Result diagrams: 05/05/22 06:36 05/05/22 06:36 Labs: Laboratory Results - last 24 hr 05/05/22 05/05/22 05/05/22 06:36 06:36 09:02 WBC 7.78 RBC 4.34 L Hgb 11.9 L Hct 37.3 L MCV 86 MCH 27.4 MCHC 31.9 L RDW 13.3 Plt Count 150 MPV 10.1 Immature Gran % 0.3 Neutrophils % 70.9 Lymphocytes % 19.2 Monocytes % 7.7 Eosinophils % 1.5 Basophils % 0.4 Nucleated RBC % 0.0 Absolute Neutrophils 5.52 Absolute Lymphocytes 1.49 Absolute Monocytes 0.60 Absolute Eosinophils 0.12 Absolute Basophils 0.03 Sodium 139 Potassium 4.0 Chloride 104 Carbon Dioxide 29.3 Anion Gap 5.7 BUN 15 Creatinine 0.8 Est GFR (CKD-EPI 2020) 100.69 Glucose 159 H Calcium 8.7 Magnesium 1.9 Urine Color Yellow Urine Clarity Clear Urine pH 5.5 Ur Specific [place] 1.015 Urine Protein Negative Urine Ketones Negative Urine Blood Negative Urine Nitrite Negative Urine Bilirubin Negative Urine Urobilinogen 0.2 Ur Leukocyte Esterase Negative Urine Glucose 100
[2022-05-06 00:05] VITALS: BP 110/78; PULSE 61; RESP 16; TEMP 36.2; O2SAT 95
[2022-05-06] MEDS: HYDROmorphone 2 MG/ML SYR 1 MG IVP (01:47)
[2022-05-06] MEDS: metroNIDAZOLE 500 MG/100 ML BAG 100 MG IVPB ×3 (01:47→14:27)
[2022-05-06 03:40] VITALS: BP 120/67; PULSE 71; RESP 18; TEMP 36.6; O2SAT 95
[2022-05-06] MEDS: CIPROFLOXACIN 400 MG/200 ML BAG 200 MG IVPB (05:46)
[2022-05-06 07:00] VITALS: BP 109/65; PULSE 58; RESP 16; TEMP 37.1; O2SAT 95
[2022-05-06] MEDS: Tamsulosin 0.4 MG CAPCR PO (08:40)
[2022-05-06] MEDS: PARoxetine 10 MG TAB 30 MG PO (08:40)
[2022-05-06] MEDS: amLODIPine 5 MG TAB 2.5 MG PO (08:40)
[2022-05-06] MEDS: Normal Saline Flush 10 ML SYR IVP (08:40)
[2022-05-06] MEDS: Atorvastatin 40 MG TAB 80 MG PO (08:41)
[2022-05-06] MEDS: Losartan 25 MG TAB PO (08:42)
[2022-05-06] MEDS: Levothyroxine 25 MCG TAB PO (08:42)
[2022-05-06] MEDS: Furosemide 20 MG TAB PO (08:42)
[2022-05-06] MEDS: Metoprolol 50 MG TAB PO (08:42)
[2022-05-06] MEDS: Mylanta Suspension 30 ML CUP PO (11:03)
[2022-05-06 11:42] VITALS: BP 128/80; PULSE 53; RESP 18; TEMP 36.6; O2SAT 96
[2022-05-06 12:00] LABS: HGB 13.5 g/dL (13.5-17.5)
--- NOTE | 2022-05-06 14:27 | DSE_ITS ---
Date of service: 05/06/22 Time of Service: 14:28 DS: Diagnosis Discharge Diagnosis (1) Diverticula of intestine: Status: Acute (2) Rectal/anal hemorrhage: Status: Acute (3) Diabetes mellitus: Status: None (4) Hypertension: Status: None (5) CAD (coronary artery disease): Status: None (6) Hypothyroid: Status: Chronic (7) Depression: Status: Chronic (8) WILLIS (obstructive sleep apnea): Status: None (9) Hyperlipidemia: Status: None (10) DVT prophylaxis: Status: Acute (11) Discharge planning issues: Status: Acute Discharge Plan Disposition Patient Disposition: HOME Condition: Stable Discharge Details Reason For Visit: Acute Diverticulitis Admit Date/Time: 05/04/22 08:27 Admit Provider: Laura Shepherd Attending Provider: Laura Shepherd Primary Care Provider: Андрей Coello [place] Hospital Course: This is a 62-year-old male patient with a past medical history of diabetes mellitus, previous heart attack with stent, ulcerative colitis, diverticulitis, who presented to the [facility] emergency department on 05/04/2022 for evaluation of lower abdominal pain he had been experiencing for 7 hours, as well as bright red blood and clots when having a bowel movement. The patient described the pain as achy.? He had 1-2 episodes of vomiting and some mild nausea as well.? He denied any chest or epigastric pain.? He has had diverticulitis before and states that it presented similar to this.? He denied taking any aspirin for the last week or so.? He is not on any other blood thinners. The CT scan showed evidence of diverticulitis without perforation. He continued to have moderate pain and was admitted to the medical floor for pain control, IV fluids, antibiotics and pain/nausea management. He was given Cipro and Flagyl IV. He advanced his diet and today he ate lunch and has had no issues with pain or nausea.? He is being discharged to home without services with oral antibiotics ? (Cipro and Flagyl for 7 days to make 10 total) - anti-emetics and pain medicine.? He was provided education related to nutrition and diet. ? Home Meds and New Rx's Prescriptions: New ciprofloxacin HCl [Cipro] 500 mg tablet 500 mg PO BID Qty: 14 0RF metronidazole 500 mg tablet 500 mg PO Q8H 7 Days Qty: 21 0RF oxycodone 5 mg capsule 5 mg PO Q8H PRNQty: 10 0RF ondansetron 4 mg tablet,disintegrating 4 mg PO TID-QID PRNQty: 10 0RF Continued metoprolol tartrate 50 mg tablet 50 mg PO BID Label Comments: 02/14/21 from PCP list who writes for this medication. RH glipizide 5 mg tablet 2.5 mg PO DAILY Jardiance 25 mg tablet 25 mg PO DAILY aspirin [Adult Low Dose Aspirin] 81 mg tablet,delayed release (DR/EC) 81 mg PO DAILY paroxetine HCl 30 mg tablet 30 mg PO DAILY triamcinolone acetonide 0.1 % cream 1 applic TP BID ketoconazole 2 % cream 1 applic TP BID PRN amlodipine 5 mg tablet 2.5 mg PO DAILY nitroglycerin [Nitrostat] 0.4 mg tablet, sublingual 0.4 mg Sublingual PRN PRN (Reason: chest pain) Qty: 10 12RF furosemide 20 mg tablet 20 mg PO DAILY Qty: 90 3RF Trulicity 0.75 mg/0.5 mL pen injector 1.5 mg subcut QWEEK polyethylene glycol 3350 17 gram/dose powder 238 g PO ONCE Qty: 238 0RF Rx Instructions: take per colonoscopy instructions bisacodyl [Dulcolax (bisacodyl)] 5 mg tablet,delayed release (DR/EC) 5 mg PO ONCE Qty: 4 0RF Rx Instructions: take per colonoscopy instructions fluocinonide-emollient [Fluocinonide-E] 60 GM cream 60 g Topical PRN PRNQty: 1 Rx Instructions: use on hands but not elsewhere.HE levothyroxine 25 MCG tablet 25 mcg PO DAILY atorvastatin 80 MG tablet 80 mg PO DAILY Qty: 90 2RF losartan 25 mg tablet 25 mg PO DAILY Qty: 90 3RF metformin 500 MG tablet extended release 24 hr 1,000 mg PO BID acetaminophen [Tylenol Extra Strength] 500 mg Tablet 500 mg PO Q8H PRN PRN tamsulosin [Flomax] 0.4 mg Capsule 0.4 mg PO DAILY cholecalciferol (vitamin D3) [Vitamin D3] 1,000 unit Capsule 1,000 unit PO DAILY benzonatate 100 mg capsule 1 cap PO TID PRN Label Comments: 1 capsule by mouth three times a day As needed for cough Discharge Instructions Instructions: Ciprofloxacin (By mouth), Metronidazole (By mouth), Diverticulitis (DC), Diverticulitis Diet (DC) Additional Instructions: Surgery recommends follow up with them in 3-4 weeks for colonoscopy. Take Cipro and Flagyl for 7 days as directed. Do not drink alcohol. Seek medical attention if you have of any of these: ?Temperature >100.1?F (38?C) ?Worsening or severe abdominal pain ?Inability to tolerate fluids Advance your diet slowly. Stand Alone Forms: Nursing Discharge Form Referrals: Андрей Coello [Primary Care Provider] - (Please call Sunday to make a follow up appointment.) Nara De La Cruz DO [OSTEOPATHIC DOCTOR] - (Please call Sunday to make a follow up appointment Follow up hospitalization - colonoscopy plan 3-4 w) Activity:: Activity as Tolerated Equipment/Supplies:: No Equipment Needed Diet:: low fiber Discharge Orders Discharge Orders: Discharge Order (Routine); Ordered 05/06/22 Ordered By: Betzaida Freedman DS: Summary Time Spent with Patient providing and/or coordinating discharge services: Less than 30 minutes Status at Discharge Functional status at discharge: independent ambulation Overall status at discharge: patient is progressing back to baseline Mental Status: mental status grossly normal Speech and Movement: speech and movement normal Mood: congruent mood Affect: normal affect Exam Narrative Exam Narrative: Sitting in a chair, awake, alert, conversant.Color is good, speaking in full sentences Const General: cooperative and no acute distress Nutritional Appearance: overweight Orientation: alert, awake and oriented x3 Limitations: mental status not altered Resp Effort & Inspection: normal respiratory effort and able to speak in complete sentences Cardio Rate: regular rate Rhythm: regular rhythm Heart Sounds: S1 normal, S2 normal, no click, no gallops, no murmurs and no rubs GI Inspection: normal to inspection, non-distended, obesity and no visible pulsation Palpation: soft, no hepatosplenomegaly, no guarding and tender Auscultation: hyperactive bowel sounds Rectal Exam: deferred Psych Mental Status: mental status grossly normal Speech and Movement: speech and movement normal Mood: congruent mood Affect: normal affect DS: Data Vitals/I&O Vitals and I&O: Vital Signs Temperature 36.6 C 05/06/22 11:42 Temperature Source Tympanic 05/06/22 11:42 Pulse 53 L 05/06/22 11:42 Pulse Rhythm Regular 05/06/22 08:30 Pulse 82 05/04/22 10:32 Respiratory Rate 18 05/06/22 11:42 Respiratory Effort Non-Labored 05/06/22 08:30 Respiratory Depth Normal 05/06/22 08:30 Respiratory Pattern Normal 05/06/22 08:30 Blood Pressure 128/80 05/06/22 11:42 Blood Pressure Mean 98 05/04/22 10:32 Blood Pressure Position Sitting 05/04/22 04:44 Pulse Oximetry 96 05/06/22 11:42 Oxygen Delivery Method Room Air 05/06/22 11:42 Oxygen Flow Rate 0 05/06/22 11:42 Pain Level 0 05/06/22 11:42 Comment 05/04/22 12:43 Intake & Output 05/05/22 05/06/22 05/06/22 23:59 11:59 23:59 Intake Total 410 / 1190 650 / 650 Output Total 500 / 3175 2400 / 2400 Balance - / -1984 -1750 / -1750 Intake: IV 410 / 1190 410 / 410 Oral 240 / 240 Output: Urine 500 / 3175 2400 / 2400 Other: Urine Color Yellow Yellow Urine Appearance Clear Clear Urine Odor Normal None Comment patient reports unmeasured amount in toilet- large Voiding Methods Urinal Urinal Data Completed and Pending Labs on day of discharge: Labs from last 24 hours 05/06/22 11:58 Hgb 13.5 Hct 42.0 PFSH All Active Problems (Updated 05/04/22 @ 21:27 by Nara De La Cruz, DO) Enlarged liver (Acute) Coronary artery calcification seen on CAT scan (Acute) Hypothyroid (Chronic) DVT prophylaxis (Acute) Discharge planning issues (Acute) Diverticula of intestine (Acute) Diverticulitis (Chronic) Rectal/anal hemorrhage (Acute) Intention tremor (Acute 01/08/13) Candidal intertrigo (Acute) Tinnitus (Acute) Sensorineural hearing loss of both ears (Acute) Chest pain (Acute) Left rotator cuff tear (Acute) Biceps tendinitis of left shoulder (Acute) Bursitis of left shoulder (Acute) DJD of left AC (acromioclavicular) joint (Acute) Left carpal tunnel syndrome (Acute) Screening for colon cancer (Acute) Left shoulder pain (Acute) Elevated bilirubin (Acute) Lung nodule (Acute) Trochanteric bursitis of both hips (Acute) Hearing loss in right ear (Acute) Lateral epicondylitis (Acute) Memory impairment (Acute) Dyspepsia (Acute) Angina pectoris (Chronic) Adhesive capsulitis of left shoulder (Acute) Lumbar spinal stenosis (Acute) Subclinical hypothyroidism (Acute) Anxiety (Chronic) Depression (Chronic) Vitamin deficiency (Acute) No-show for appointment (Acute) Medical History Chronic back pain Diabetic peripheral neuropathy Hx of type 2 diabetes mellitus Spinal stenosis Surgical History Colonoscopy - MAC Coronary Stent x3 Hx of cardiac catheterization 09/2020x3 stents placed Hx of knee surgery right Family History Father Heart disease Social History Smoking/Tobacco Use Status: Former Tobacco Use Quit Date: 07/23/97 Tobacco: How many years used: 29 Smoking risk assessment performed?: Yes Alcohol Intake: former Year quit: 1997 Drug use: Daily Substance use type: marijuana Details: Only at Current gender identity: male What type of physical activity do you participate in: walking Duration: < 15 minutes/day Frequency: 3-4 times per week Do you feel safe at home: Yes Do you feel safe in your relationship?: Yes Additional Social history: lives alone
[2022-05-06 15:11] VITALS: BP 130/68; PULSE 63; RESP 16; TEMP 36.6; O2SAT 96
--- NOTE | 2022-05-06 15:32 | PDOC.CMDIS ---
- If Service Date Differs Date of service: 05/06/22 Time of Service: 15:33 LACE Index Scoring Tool - Questions: Length of Stay (in days): 2 Acuity (Admit via E.D.?): Yes Comorbidities: Diabetes w/o Complication (DM type 2, Diabetic peripheral neuropathy) E.D. Visits: 1 - Answers: Total Score: 7 Risk of Readmission: Low Risk Care Management Discharge Reason for Hospitalization: Acute Diverticulitis Discharge Plan: Elias is discharged home via private vehicle with family. New RX's are transmitted to [facility]. Elias will call the Surgical office on Sunday to schedule a F/U appointment (of note, a colonoscopy is recommended in 3-4 weeks.) Elias will call his PCP on Sunday to schedule a follow up appointment. Elias agrees to follow up with his community providers and discharge plan of care as prescribed. He is asked to return to the ER, with any new or worsening sx. Patient/Family Education Needs: Review discharge instructions, limitations, medications and plan to follow up with community providers. Discuss ask me three.
== END 2022-05-06 15:45 | disposition home or self-care (01) ==
LOC: ER 09:25 → MS 11:54
PROVIDERS: Nurse Practitioner Family; Student in an Organized Health Care Education/Training Program; Admitting Provider Internal Medicine; Emergency Provider Physician Assistant; PCP Family Medicine; Visit Provider Internal Medicine
DX: K57.33 Diverticulitis of large intestine without perforation or abscess with bleeding (principal); E03.9 Hypothyroidism, unspecified; E11.42 Type 2 diabetes mellitus with diabetic polyneuropathy; G47.33 Obstructive sleep apnea (adult) (pediatric); Z79.84 Long term (current) use of oral hypoglycemic drugs; Z79.85 Long-term (current) use of injectable non-insulin antidiabetic drugs; I25.2 Old myocardial infarction; Z95.5 Presence of coronary angioplasty implant and graft; K51.90 Ulcerative colitis, unspecified, without complications; R11.2 Nausea with vomiting, unspecified; F41.9 Anxiety disorder, unspecified; F32.A Depression, unspecified; G89.29 Other chronic pain; M48.00 Spinal stenosis, site unspecified; M54.9 Dorsalgia, unspecified; I25.10 Atherosclerotic heart disease of native coronary artery without angina pectoris; I10 Essential (primary) hypertension; E78.5 Hyperlipidemia, unspecified
CPT/HCPCS: 36415; 36416; 80048; 80053; 82962; 83690; 86850; 86900; 86901; 87635; 96361; 96365; 96367; 96375; 96376; 99219; 99225; 99285; 74177; 81003; 83735; 85014; 85018; 85025; 85610; 85730; 99217; 99222; G0378; J0744; J0780; J1170; J2270; J2405; J3490

== ENCOUNTER → 2022-08-31 10:05 | Outpatient (BNVA) | payer OTHER, SELFPAY | PROVIDERS: PCP Family Medicine; Referring Provider Family Medicine; Visit Provider Physical Therapy Assistant | DX: Z12.11 Encounter for screening for malignant neoplasm of colon (principal) ==

== ENCOUNTER 2022-09-05 11:04 | Outpatient (CLI) | payer OTHER, SELFPAY ==
--- NOTE | 2022-09-05 11:00 | RT.EKG_ITS ---
APPROVED REPORT Exam: Resting ECG Reason for Exam: CAD Patient Location: O HR:63 bpm ECG Measurements Heart Rate 63 AXIS DC 203 P 44 QRSd 92 QRS 0 QT 397 T 6 QTc 407 Conclusion Sinus rhythm...normal P axis, V-rate 50- 99 Normal Electrocardiogram
== END 2022-09-05 11:05 | disposition home or self-care (01) ==
LOC: DI.CARD 11:06
PROVIDERS: PCP Family Medicine; Visit Provider Internal Medicine Cardiovascular Disease
DX: I25.10 Atherosclerotic heart disease of native coronary artery without angina pectoris (principal)
CPT/HCPCS: 93010

== ENCOUNTER 2022-09-05 11:28 | Outpatient (CLI) | payer OTHER, SELFPAY ==
[2022-09-05 11:08] LABS: CREATININE 0.9 mg/dL (0.70-1.30); Estimated GFR 97.17 (mL/min/1.73m2)
== END 2022-09-05 11:29 | disposition home or self-care (01) ==
LOC: LBO 11:28
PROVIDERS: PCP Family Medicine; Visit Provider Family Medicine
DX: I25.10 Atherosclerotic heart disease of native coronary artery without angina pectoris (principal); I10 Essential (primary) hypertension; R06.09 Other forms of dyspnea
CPT/HCPCS: 36415; 93005; 99214; 82565; 99213

== ENCOUNTER 2022-09-18 06:01 | Day surgery (SDC) | payer OTHER, SELFPAY ==
--- NOTE | 2022-09-17 18:49 | PDOC.DSDIS_ITS ---
Date of service: 09/18/22 Time of Service: 08:13 Discharge Plan Disposition Patient Disposition: Home Condition: Good Discharge Details Reason For Visit: Screening colonoscopy Attending Provider: Jim Mccall Primary Care Provider: Андрей Coello [place] Meds and New Rx's Prescriptions: Continued metoprolol tartrate 50 mg tablet 50 mg PO BID Patient Comments: 02/14/21 from PCP list who writes for this medication. RH glipizide 5 mg tablet 2.5 mg PO DAILY losartan 25 mg tablet 25 mg PO DAILY Qty: 90 3RF Jardiance 25 mg tablet 25 mg PO DAILY aspirin [Adult Low Dose Aspirin] 81 mg tablet,delayed release (DR/EC) 81 mg PO DAILY paroxetine HCl 30 mg tablet 30 mg PO DAILY triamcinolone acetonide 0.1 % cream 1 applic TP BID ketoconazole 2 % cream 1 applic TP BID PRN amlodipine 5 mg tablet 2.5 mg PO DAILY nitroglycerin [Nitrostat] 0.4 mg tablet, sublingual 0.4 mg Sublingual PRN PRN (Reason: chest pain) Qty: 10 12RF furosemide 20 mg tablet 20 mg PO DAILY Qty: 90 3RF Trulicity 0.75 mg/0.5 mL pen injector 1.5 mg subcut QWEEK fluocinonide-emollient [Fluocinonide-E] 60 GM cream 60 g Topical PRN PRNQty: 1 Rx Instructions: use on hands but not elsewhere.HE levothyroxine 25 MCG tablet 25 mcg PO DAILY atorvastatin 80 MG tablet 80 mg PO DAILY Qty: 90 2RF metformin 500 MG tablet extended release 24 hr 1,000 mg PO BID acetaminophen [Tylenol Extra Strength] 500 mg Tablet 500 mg PO Q8H PRN PRN tamsulosin [Flomax] 0.4 mg Capsule 0.4 mg PO DAILY cholecalciferol (vitamin D3) [Vitamin D3] 1,000 unit Capsule 1,000 unit PO DAILY Discontinued polyethylene glycol 3350 17 gram/dose powder 238 g PO ONCE Qty: 238 0RF Rx Instructions: take per colonoscopy instructions bisacodyl [Dulcolax (bisacodyl)] 5 mg tablet,delayed release (DR/EC) 5 mg PO ONCE Qty: 4 0RF Rx Instructions: take per colonoscopy instructions Discharge Instructions Instructions: Diverticulosis (DC), Diverticulosis Diet (GEN), Colorectal Polyps (GEN) Additional Instructions: Elias, We were able to complete your colonoscopy today. You have extensive diverticulosis, mostly in the sigmoid and descending colon. This is extremely common, and certainly if it discomfort that you describe in the lower part of your abdomen. I have attached some more information here regarding general management of diverticulosis. I also found 2 polyps. I removed them completely today. We will take some time to get the results of the pathology, and I will try to get them to you as soon as I can. 1. If tolerated, consume a soft, low fiber diet for 1-2 days. [address] Do not drive, drink alcohol, operate machinery, make critical decisions, or do activities that require coordination or balance for 24 hours. 3. Because air was put into your colon during the procedure, expelling air from your rectum (passing gas or farting) is normal. 4. You may not have a bowel movement for 1-3 days because of the colonoscopy prep. This is normal. 5. Go directly to the emergency room if you notice any of the following: Develop chills (warm to touch), or if you have a thermometer and your temperature is above 101 Difficulty breathing or difficultly swallowing Persistent vomiting Severe abdominal pain, other than gas cramps Severe chest pain Black, tarry stools Any bleeding ? exceeding one tablespoon 6. Call your physician if the site where your intravenous was started becomes red, swollen, painful, and warm to touch. 7. Your physician has reviewed your pre-procedure medications. Please continue to take those medications as previously ordered. You will be given specific information/education regarding any changes to your medications before leaving. Stand Alone Forms: Axel Dominguez (ELIAU) Activity:: Activity as Tolerated Diet:: As Tolerated Discharge Orders Discharge Orders: Discharge Order (Routine); Ordered 09/17/22 Ordered By: Jim Mccall DS: Diagnosis Discharge Diagnosis (1) Screening for colon cancer: Status: Acute Asessment and Plan: All bone pathology report from polypectomy specimens
--- NOTE | 2022-09-17 18:51 | COLE_ITS ---
Date of service: 09/18/22 Time of Service: 08:15 Colonoscopy Report Date of procedure: 09/18/22 Pre-op diagnosis general: Screening colonoscopy Post-op diagnosis procedure note: other (Rectal polyps, diverticulosis) Procedure: Colonoscopy with polypectomy Surgeon: Jim Mccall Anesthesia Type: General:No Airway Estimated blood loss (mL): 5 Pathology: other (Cecal polyp, rectal polyp) Complications: None Disposition: same day Indications: Elias is a 62 year old man here for a screening colonoscopy Prep: Miralax/Dulcolax Procedure Start Time: 07:34 Procedure End Time: 08:01 Retraction Time: 16 Findings: Sigmoid and descending colon diverticulosis, cecal and rectal polyps Procedure Description: After the induction of monitored anesthetic care, and with the patient in left lateral decubitus position, I began by performing an external anorectal exam.? Perineum and skin were normal, as was the anal verge.? There was no evidence of external hemorrhoids.? Next, I performed a digital rectal exam.? I did not appreciate any abnormal findings.? Next, I advanced a colonoscope into the rectal vault.? I performed retroflexion.? This was normal.? There was a single rectal polyp. I removed this with cold forcep polypectomy. The polyp was approximately 0.25 cm and sessile. Using insufflation, I then advanced the colonoscope beyond the rectal folds and into the sigmoid colon before advancing towards the cecum.? There was extensive sigmoid and descending colon diverticulosis. The quality of the prep was excellent.? The scope was noted to be in the cecum by identification of the ileocecal valve and appendiceal orific e.? There was another polyp in the cecum. It was 0.25 cm and sessile. I removed it with cold forcep polypectomy. There was minimal bleeding. I then began withdrawing the colonoscope using repeated irrigation as necessary for full evaluation of the colonic mucosa. ?Once the scope was withdrawn to the level of the rectum, great care was taken to examine portions of the rectal folds.? Finally, the scope was withdrawn and the patient was brought to the same-day surgery recovery unit as the anesthetic wore off. ?The findings and instructions were shared with the patient prior to discharge.
[2022-09-18 06:15] VITALS: BP 112/68; PULSE 71; RESP 18; TEMP 36.2; O2SAT 96
[2022-09-18] MEDS: Lactated Ringers 1,000 ML 80 ML IV (06:49)
--- NOTE | 2022-09-18 07:05 | W.ANESPRE ---
General Info Date of Service Date Performed: 09/18/22 Height: 5 ft 11 in Weight: 126.3 kg Body Mass Index (BMI): 38.8 Surgical Procedure: Operation Date: 09/18/22 07:35 Proposed Procedure Side Surgeon gen Mccall MD Meds Allergies and Home Medications Allergies Allergy/AdvReac Type Severity Reaction Status Date / Time NIGEL Inhibitors AdvReac Cough Verified 09/18/22 06:27 codeine AdvReac Nausea Verified 09/18/22 06:27 gabapentin AdvReac vision Verified 09/18/22 06:27 trouble, dizzy,nausea lisinopril AdvReac cough Verified 09/18/22 06:27 Home Medication Medication Instructions Recorded fluocinonide-emollient 0.05 % 60 g topical PRN PRN ##1 05/21/13 topical cream (Fluocinonide-E) metformin 500 mg tablet,extended 1,000 mg PO BID 05/20/14 release 24 hr levothyroxine 25 mcg tablet 25 mcg PO DAILY 02/25/15 atorvastatin 80 mg tablet 80 mg PO DAILY #90 tab-caps 05/04/17 acetaminophen 500 mg tablet 500 mg PO Q8H PRN PRN 06/16/18 (Tylenol Extra Strength) cholecalciferol (vitamin D3) 25 1,000 unit PO DAILY 06/16/18 mcg (1,000 unit) capsule (Vitamin D3) tamsulosin 0.4 mg capsule (Flomax) 0.4 mg PO DAILY 06/16/18 aspirin 81 mg tablet,delayed 81 mg PO DAILY 05/08/19 release (Adult Low Dose Aspirin) empagliflozin 25 mg tablet 25 mg PO DAILY 05/08/19 (Jardiance) ketoconazole 2 % topical cream 1 applic topical BID PRN 05/08/19 paroxetine HCl 30 mg tablet 30 mg PO DAILY 05/08/19 triamcinolone acetonide 0.1 % 1 applic topical BID 05/08/19 topical cream nitroglycerin 0.4 mg sublingual 0.4 mg sublingual PRN PRN chest 10/12/20 tablet (Nitrostat) pain #10 tabs furosemide 20 mg tablet 20 mg PO DAILY #90 tabs 11/16/20 dulaglutide 0.75 mg/0.5 mL 1.5 mg subcut QWEEK 02/14/21 subcutaneous pen injector (Trulicity) metoprolol tartrate 50 mg tablet 50 mg PO BID 02/14/21 amlodipine 5 mg tablet 2.5 mg PO DAILY 07/06/21 glipizide 5 mg tablet 2.5 mg PO DAILY 02/01/22 losartan 25 mg tablet 25 mg PO DAILY #90 tabs 09/05/22 Current Visit Medications: Current Medications Generic Name Dose Route Start Last Admin Trade Name Freq PRN Reason Stop Dose Admin Hyoscyamine Sulfate 0.125 mg 09/17/22 18:53 Hyoscyamine 0.125 Mg Sl/Oral/Chew SL DIRECTED PRN Ringer's Solution 1,000 mls @ 80 mls/hr 09/18/22 06:00 09/18/22 06:49 IV 10/15/22 23:59 80 mls/hr INFUSION RAYA Administration IV Miscellaneous Supplies 1 each 09/18/22 06:00 Iv Access IV 10/15/22 23:59 DIRECTED RAYA Ondansetron HCl 4 mg 09/17/22 18:53 Ondansetron 4 Mg/2 Ml Vial IVP Q4H PRN PRN Nausea / Vomiting Sodium Chloride 0 ml 09/18/22 06:00 Normal Saline Flush 10 Ml Syr IV 10/15/22 23:59 PRN PRN Sodium Chloride 0 ml 09/18/22 06:00 Normal Saline 10 Ml Vial IJ 10/15/22 23:59 DIRECTED PRN Sterile Water 0 ml 09/18/22 06:00 Water,Injection,Sterile 10 Ml Vial IJ 10/15/22 23:59 DIRECTED PRN PFSH Active Problems Active Problems: Problem Status Onset Code ASCVD (arteriosclerotic cardiovascular disease) I25.10 Loose stools R19.5 Enlarged liver R16.0 Coronary artery calcification seen on CAT scan I25.10 Hypothyroid E03.9 Diverticulitis K57.92 Rectal/anal hemorrhage K62.5 Intention tremor 01/08/13 G25.2 Candidal intertrigo B37.2 Tinnitus H93.19 Sensorineural hearing loss of both ears H90.3 Chest pain R07.9 Left rotator cuff tear M75.102 Biceps tendinitis of left shoulder M75.22 Bursitis of left shoulder M75.52 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 Left carpal tunnel syndrome G56.02 Screening for colon cancer Z12.11 Left shoulder pain M25.512 Elevated bilirubin R17 Lung nodule R91.1 Trochanteric bursitis of both hips M70.61, M70.62 Hearing loss in right ear H91.91 Lateral epicondylitis M77.10 Memory impairment R41.3 Dyspepsia R10.13 Angina pectoris I20.9 Adhesive capsulitis of left shoulder M75.02 Lumbar spinal stenosis M48.061 Subclinical hypothyroidism E03.8 Anxiety F41.9 Depression F32.A Vitamin deficiency E56.9 No-show for appointment Z53.29 Medical History Medical History Chronic back pain Diabetic peripheral neuropathy Hx of type 2 diabetes mellitus Lower urinary tract symptoms Spinal stenosis Medical History Comments:: rt leg, back problems, reports has trouble sleeping on his back. Surgical History Surgical History Colonoscopy - MAC Coronary Stent x3 Hx of cardiac catheterization 09/2020x3 stents placed Hx of knee surgery right Tobacco Smoking/Tobacco Use Status: Former Tobacco Use Alcohol Alcohol Intake: former Year quit: 1997 Substance Use Substance use: Daily Substance use type: marijuana Vital Signs and Lab Results Vital Signs Most Recent Vital Signs in EMR: Most Recent Vital Signs Temp Pulse Resp BP Pulse Ox 36.2 C L 71 18 112/68 96 09/18/22 06:15 09/18/22 06:15 09/18/22 06:15 09/18/22 06:15 09/18/22 06:15 Point of Care Results Point of Care Results: Finger Stick Blood Glucose 135 09/18/22 06:31 Lab Results Blood Type / Crossmatch: No Data to Display Complete Blood Count: No Data to Display Complete Metabolic Panel: Creatinine 0.9 mg/dL (0.70-1.30) 09/05/22 10:25 Est GFR (CKD-EPI 2020) 97.17 (mL/min/1.73m2) 09/05/22 10:25 Liver Function Panel: No Data to Display Coagulation Panel: No Data to Display Cardiac Panel: No Data to Display Arterial Blood Gas: No Data to Display Venous Blood Gas: No Data to Display Pancreas Panel: No Data to Display Thyroid Panel: No Data to Display Infectious Disease: No Data to Display Blood Cultures: No Data to Display Toxicology Panel: No Data to Display Imaging and Studies Imaging and Studies Study information below may be from another EMR and interpreted by another provider. Please see original notes in EMR for more complete details. EKG Summary: Sinus rhythm...normal P axis, V-rate 60- 99 Stress Test Summary: 1. The patient exercised for 4 minutes and 34 seconds (6.5 METS). 2. The patient had symptoms of dyspnea as well as chest pressure. 3. There were no EKG changes suggestive of ischemia. Anesthesia Assessment and Plan Anesthesia History Personal History: No History of Anesthesia Complications Family History: No Family History of Anesthesia Complications Exercise Tolerance Exercise Tolerance: Metabolic Equivalents<4 Pertinent Negatives Pertinent Negatives: No Symptoms of GERD, No Major Cardiovascular Symptoms or Complaints and No Major Pulmonary Symptoms or Complaints Cardiac & Pulmonary Exam Cardiac Exam: Normal S1/S2 Heart Sounds Pulmonary Exam: Clear Bilateral Breath Sounds Implantable Cardiac Device Does patient have a Pacemaker or an ICD?: No Airway Exam Known Difficult Airway: No Mallampati Class: 3 Mouth Opening: Narrow (< 3cm) Thyromental Distance: Greater than 3 cm Facial Hair: Full [place] Neck Range of Motion: Limited ROM Neck Circumference: Thick Teeth Condition: Generalized Poor Dentition and Advised tooth loss possible given current condition (indicate tooth) ASA Classification ASA Score: ASA 3 Emergency Case?: No NPO Status NPO Status: NPO Clears >2 hours, Solids >8 hours Anesthesia Plan Resuscitation Status: Full Code Anesthesia Technique: General Anesthesia Airway Planned: Natural Airway Monitors Used: Standard Monitors
[2022-09-18 07:09] VITALS: BMI 38.8
--- NOTE | 2022-09-18 07:36 | BOWEL_PTH ---
PATIENT: Elias Pennington LOC: [facility] U#:[id number] AGE/SX: 62/M ROOM: RE09/18/[address]: Jim Mccall MD : 1960 BED: DIS: 09/18/2022 SPEC #: [id number] RECD: 09/18/22 13:11 STATUS: TRANG REQ #: [id number] SAJAN: 09/18/22 07:[address]: Jim Mccall DEPT: Surgical Specimen RECD BY: Anjana Walker ENTERED: 09/18/22 13:12 SP TYPE: Bowel OTHR DR: Андрей Coello Tissues: 1 - BIOPSY BOWEL 2 - BIOPSY BOWEL Procedures: GROSS AND MICRO LEVEL 4 Comments: [id number]
[2022-09-18 08:08] VITALS: BP 109/66; PULSE 74; RESP 16; TEMP 36.2; O2SAT 96
--- NOTE | 2022-09-18 08:15 | W.ANESPOSTOP ---
Postoperative Evaluation Date, Time and Location Date Performed: 09/18/22 Time Performed: 08:15 Patient Location: Day Surgery Unit Vital Signs Most Recent Imported Vital Signs: Most Recent Vital Signs Temp Pulse Resp BP Pulse Ox 36.2 C L 74 16 109/66 96 09/18/22 08:08 09/18/22 08:08 09/18/22 08:08 09/18/22 08:08 09/18/22 08:08 Pain Score Most Recent Pain Score: Most Recent Pain Score Pain Level 0 09/18/22 08:08 Assessment Mental Status: Awake (Alert & Oriented to Patient Baseline) Airway and Respiratory Function: Patent airway with normal (patient baseline) respiratory exam Cardiovascular Function: Hemodynamically Stable Hydration Status: Adequately Hydrated Nausea & Vomiting: No Nausea or Vomiting Pain: Pt. Denies Any Pain Peripheral Nerve Block: Patient did not receive a nerve block
[2022-09-18 08:41] VITALS: BP 126/74; PULSE 69; RESP 18; TEMP 36.4; O2SAT 97
== END 2022-09-18 09:05 | disposition home or self-care (01) ==
PROVIDERS: PCP Family Medicine; Visit Provider Surgery
PROC: 0DJD8ZZ Inspection of Lower Intestinal Tract, Via Natural or Artificial Opening Endoscopic (ICD-10-PCS; CPT 45378; principal; 2022-09-18 07:30)
DX: Z12.11 Encounter for screening for malignant neoplasm of colon (principal); K62.1 Rectal polyp; K57.30 Diverticulosis of large intestine without perforation or abscess without bleeding
CPT/HCPCS: 45380; 88305; J2704

== ENCOUNTER 2022-09-21 01:59 | Outpatient (CLI) | payer OTHER, SELFPAY ==
--- NOTE | 2022-09-21 | DI.CT_ITS ---
Exam(s) CT CHEST WO EXAM: CT CHEST WO CLINICAL HISTORY: LUNG NODULE R91.8 6 MM LLL, FU FROM 09/2021. TECHNIQUE: Imaging protocol: Axial computed tomography images were obtained and coronal and sagittal reformatted images were created and reviewed. COMPARISON: CT CT CHEST WO from 09/20/2021 FINDINGS: Tracheobronchial tree: Patent where visualized. Pulmonary parenchyma: No consolidation or dominant measurable mass. No architectural distortion. Ther e are calcified granuloma. There is a stable 6 mm nodule in the medial aspect of the left lower lobe . No new pulmonary nodules are present. Mediastinum and Elissa: No dominant adenopathy or fluid collection. The esophagus is unremarkable. Thyroid gland: Unremarkable. Pleura: No effusion or pneumothorax. Heart: The heart is not dilated. Coronary artery calcifications are present. No pericardial effusion . Aorta: Thoracic aorta non-dilated. Upper abdomen: Diverticulosis is seen in the colon but no evidence of acute diverticulitis. Lymph nodes: Within normal limits. Soft tissues: There is mild gynecomastia. Bones:Within normal limits for the patient's age. IMPRESSION: Stable 6 mm left lower lobe pulmonary nodule. A follow-up examination in 12 months for high risk pat ients (history of smoking or other risk factors), should be considered for re-evaluation. (Jenni e t al, 2017). RADIATION DOSE DELIVERED: 880.53mGy.cm Total DLP 880.53mGy.cm Total DLP DATA REPOSITORY: All CT scans at this facility are submitted to the National Radiology Data Registry (NRDR) Dose Index Registry (DIR) with the [employer] (ACR). RADIATION OPTIMIZATION: All CT scans at this facility use at least one of these dose optimization te chniques: automated exposure control; mA and/or kV adjustment per patient size (includes targeted exa ms where dose is matched to clinical indication); or iterative reconstruction.
== END 2022-09-21 02:19 ==
LOC: DI 01:59
PROVIDERS: PCP Family Medicine; Visit Provider Family Medicine
DX: R91.1 Solitary pulmonary nodule (principal); J98.4 Other disorders of lung
CPT/HCPCS: 71250

== ENCOUNTER 2023-02-07 11:14 | Outpatient (REF) | payer OTHER, SELFPAY ==
[2023-02-07 17:14] LABS: Calculated LDL 42 mg/dL (<100); Cholesterol 99 mg/dL (<200); HDL Cholesterol 36 mg/dL (40-60); Magnesium 2.1 mg/dL (1.8-2.4); TSH 2.46 uIU/mL (0.36-3.74); Triglyceride 106 mg/dL (<150)
[2023-02-07 18:30] LABS: NT-proBNP 91 pg/mL (<300)
== END 2023-02-07 11:15 | disposition home or self-care (01) ==
LOC: NCHCN 11:14
PROVIDERS: PCP Family Medicine; Visit Provider Family Medicine
DX: E03.9 Hypothyroidism, unspecified (principal); E78.5 Hyperlipidemia, unspecified; E11.9 Type 2 diabetes mellitus without complications; I25.10 Atherosclerotic heart disease of native coronary artery without angina pectoris; R06.09 Other forms of dyspnea; I10 Essential (primary) hypertension
CPT/HCPCS: 80061; 83735; 83880; 84443

== ENCOUNTER 2023-03-06 09:35 | Outpatient (CLI) | payer OTHER, SELFPAY ==
--- NOTE | 2023-03-06 09:30 | RT.EKG_ITS ---
APPROVED REPORT Exam: Resting ECG Reason for Exam: ASCVD Patient Location: O HR:60 bpm ECG Measurements Heart Rate 60 AXIS SD 205 P 40 QRSd 97 QRS 0 QT 411 T 27 QTc 411 Conclusion Sinus rhythm...normal P axis, V-rate 50- 99 Normal Electrocardiogram
== END 2023-03-06 09:36 | disposition home or self-care (01) ==
LOC: DI.CARD 09:45
PROVIDERS: PCP Family Medicine; Referring Provider Family Medicine; Visit Provider Internal Medicine Cardiovascular Disease
DX: I25.10 Atherosclerotic heart disease of native coronary artery without angina pectoris (principal)
CPT/HCPCS: 93010

== ENCOUNTER → 2023-03-06 09:35 | Outpatient (BNVA) | payer OTHER, SELFPAY | PROVIDERS: PCP Family Medicine; Referring Provider Family Medicine; Visit Provider Internal Medicine Cardiovascular Disease | DX: Z95.5 Presence of coronary angioplasty implant and graft (principal); I25.10 Atherosclerotic heart disease of native coronary artery without angina pectoris; I10 Essential (primary) hypertension | CPT/HCPCS: 93005; 99214 ==

== ENCOUNTER → 2023-03-13 00:46 | Outpatient (CLI) | payer OTHER, SELFPAY ==
--- NOTE | 2023-03-13 07:15 | DI.NM_ITS ---
APPROVED REPORT Exam: Pharmacologic Patient Location: Out-Patient Room/Bed: Stress Nurse: Ruthy Purdy RN Ordering Provider:ALEX MARTINEZ, Contact Number: [phone] BMI: 38.24 Baseline Rhythm: Sinus Rhythm Comment: 1st degree AV block Indications: Chest pain Medical History Medical History: ASCVD, WILLIS, D.M, CAD, HLD, HTN, chest pain, anxiety, chronic back pain Cardiac Medications: Nitro, metoprolol tartrate, metformin, losartan Allergies: NIGEL inhibitors codeine, gabapentin, lisinopril, furosemide, atorvastatin, aspirin Cardiac Risk Factors: Family hx, HTN, HLD, CVD, diabetes, obesity Previous Cardiac Procedures: hx of 3 cardiac stents Pretest Chest Pain Characteristics: Non-exertional Chest heaviness 2/10 Exercise History: Indeterminate Physical Disabilities: Knees Lung Sounds: Clear to auscultation Heart Sounds: Bradycardia Stress Test Details Test: Pharmacologic stress testing performed using 0.4 mg of regadenoson per 5 mL given IV over 10 s econds. Reason for pharmacologic stress test: physical limitation. Nuclear Acquisition: Rest Tc-99m/Stress Tc-99m 1 day Rest Isotope: Tc-99m Sestamibi. Dose: 12.0 Date: 03/13/2023 Injection Time: 0915 Stress Isotope: Tc-99m Sestamibi. Dose: 36.0 Date: 03/13/2023 Injection Time: 1115 HR Resting HR Supine: 56 bpm Max Heart Rate (APMHR): 158.431267 bpm Target HR (85% APMHR): 134.425501 bpm Max HR Achieved: 75 bpm % of APMHR: 47.47 Recovery HR: 65 bpm BP Resting BP Supine: 114/80 mmHg Max BP: 110/70 mmHg Recovery BP: 108/62 mmHg ECG Resting ECG: Sinus Bradycardia, 1st degree AV block Ectopy: None Stress ECG: Sinus Rhythm, 1st degree AV block ST Change: Nondiagnostic low heart rate Arrhythmia: None Recovery ECG: Sinus Rhythm, 1st degree AV block Recovery ST Change: Nondiagnostic low heart rate Recovery Arrhythmia: None Clinical Rate Pressure Product: 8250 Stress ECG Conclusion 1. Electrocardiogram showed first-degree AV block 2. Patient underwent testing using pharmacologic stress with regadenoson 3. Peak heart rate achieved was 42% of predicted for age 4. The electrocardiographic portion of the test was nondiagnostic 5. See MPI report Stress Test Summary STAGE HR BP SpO2 Symptoms NOTES Supine 56 114/80 98 Mild SOB, 2/10 chest heaviness 1 min post Lexiscan injection 62 110/70 96 Mild SOB, 2/10 chest heaviness 3 min post Lexiscan injection 71 108/58 98 Symptoms starting to reslove 6 min post Lexiscan injection 65 108/62 98 Symptoms resolved. MPI Conclusion Myocardial perfusion is normal. There is no ischemia or evidence of prior infarction EF 49% with normal wall motion Radiologist Interpretation Radiologist agrees with Shipping Room Supervisor's Interpretation. Radiologist Interpretation by: Gal Washington MD Interpretation Date/Time: 03/15/2023 18:39:08
[2023-03-13] MEDS: Regadenoson 0.4 MG/5 ML SYR IVP (11:04)
== END ==
PROVIDERS: PCP Family Medicine; Visit Provider Internal Medicine Cardiovascular Disease
DX: R07.9 Chest pain, unspecified (principal)
CPT/HCPCS: 78452; 93016; 93018; 93017; J2785

== ENCOUNTER 2023-05-03 08:33 | Outpatient (CLI) | payer OTHER, SELFPAY | END 2023-05-03 08:34 | disposition home or self-care (01) | PROVIDERS: PCP Family Medicine; Visit Provider Family Medicine | DX: I25.10 Atherosclerotic heart disease of native coronary artery without angina pectoris (principal) | CPT/HCPCS: 93246 ==

== ENCOUNTER 2023-05-28 08:29 | Outpatient (CLI) | payer OTHER, SELFPAY ==
--- NOTE | 2023-05-28 12:28 | W.CARDEVENT ---
Date of service: 05/28/23 Time of Service: 12:28 Cardiac Event Recorder Referring Provider:: Андрей Coello Indications:: Palpitations Cardiac Event Note: This is a cardiac event monitor. The patient was monitored for 10 days 19 hours 55 minutes Predominant rhythm was sinus with an average heart rate of 73. Minimum was 50, maximum 118 There were very rare isolated atrial and ventricular ectopic beats A total of 9 brief atrial runs occurred. The longest of these was 8 beats in duration There was no atrial fibrillation, no high-grade AV block, no pauses greater than 3 seconds No patient symptoms were reported
== END 2023-05-28 08:30 | disposition home or self-care (01) ==
LOC: CARDOPNVT 08:29
PROVIDERS: PCP Family Medicine; Visit Provider Internal Medicine Cardiovascular Disease
DX: I25.10 Atherosclerotic heart disease of native coronary artery without angina pectoris (principal); R00.2 Palpitations
CPT/HCPCS: 93248

== ENCOUNTER → 2023-06-18 01:59 | Outpatient (CLI) | payer OTHER, SELFPAY ==
--- NOTE | 2023-06-18 | DI.MRI_ITS ---
Exam(s) MR BRAIN WO EXAM: MR BRAIN WO CLINICAL HISTORY: NEW RECURRENT EXPRESSIVE DYSPHASIA,R47.01,CAD,DIABETES,HEADACHE, TECHNIQUE: Multiplanar multisequence MRI of the brain was performed. COMPARISON: MR MRI - BRAIN WO CONTRAST from 07/17/2012 MR MR UPPER JOINT LT WO from 04/25/2021 FINDINGS: VENTRICLES AND EXTRA AXIAL SPACES: Normal in size and morphology for the patient's age. MIDLINE SHIFT: None. CEREBRAL PARENCHYMA: No focus of restricted diffusion to suggest acute infarct. No space-occupying le sin identified. There are several foci of hyperintense signal seen in the white matter on the FLAIR and T2 weighted images most consistent with small vessel ischemic disease. HEMORRHAGE: None. BRAINSTEM/CEREBELLUM: Normal. CALVARIUM: Normal. VISUALIZED PARANASAL SINUSES/MASTOIDS:There is mild mucosal thickening in the maxillary sinuses and a mucous retention cyst in the right maxillary sinus. The remaining visualized paranasal sinuses are clear. [place]: Normal flow void. PITUITARY GLAND: Unremarkable. OTHER FINDINGS: None. IMPRESSION: 1. There is no evidence of an acute territorial infarct. 2. Findings consistent with chronic microvascular ischemic disease. DATA REPOSITORY:
== END ==
PROVIDERS: PCP Family Medicine; Visit Provider Family Medicine
DX: I67.82 Cerebral ischemia (principal)
CPT/HCPCS: 70551

== ENCOUNTER 2023-09-27 12:07 | Outpatient (REF) | payer OTHER, SELFPAY ==
[2023-09-27 15:42] LABS: Abs Immature Grans 0.02 10^3/uL (0.0-0.06); Absolute Basophil Count 0.06 10^3/uL (0.0-0.2); Absolute Eosinophil Count 0.09 10^3/uL (0.0-0.7); Absolute Lymphocyte Count 2.27 10^3/uL (1.2-3.4); Absolute Monocyte Count 0.44 10^3/uL (0.1-0.8); Absolute Neutrophil Count 3.58 10^3/uL (1.2-6.7); Basophils % 0.9; Eosinophils % 1.4; HCT 42.3 % (40.0-50.0); HGB 14.2 g/dL (13.5-17.5); Immature Grans % 0.3; Lymphocytes % 35.1; MCH 28.3 pg (27.0-33.0); MCHC 33.6 % (32.0-36.0); MCV 84 fL (80-95); MPV 11.1 fL (8.0-11.0); Monocytes % 6.8; Neutrophils % 55.5; Platelet Count 167 10^3/uL (130-400); RBC 5.01 10^6/uL (4.36-5.78); RDW 13.1 % (11.8-14.1); RDW-SD 39.8 fL; WBC 6.46 10^3/uL (4.4-10.8)
[2023-09-27 16:03] LABS: ALT 54 U/L (16-63); AST 32 U/L (15-37); Albumin 4.3 g/dL (3.4-5.0); Alkaline Phosphatase 121 U/L (46-116); Anion Gap 12.8 mmol/L (3-11); BUN 16 mg/dL (7-18); Bilirubin, Total 1.3 mg/dL (0.2-1.0); CO2 23.2 mmol/L (21.0-32.0); CREATININE 0.8 mg/dL (0.70-1.30); Calcium 8.9 mg/dL (8.5-10.1); Chloride 101 mmol/L (98-107); Estimated GFR 100.06 (mL/min/1.73m2); Glucose 131 mg/dL (74-106); Potassium 4.1 mmol/L (3.5-5.1); Sodium 137 mmol/L (136-145); TSH (W/Ref FT4) 3.28 uIU/mL (0.36-3.74); Total Protein 7.3 g/dL (6.4-8.2)
[2023-09-27 16:05] LABS: C-Reactive Protein < 0.50 mg/dL (<or=0.5)
[2023-09-27 16:30] LABS: Hemoglobin A1C 7.9 % (<5.7)
== END 2023-09-27 12:08 | disposition home or self-care (01) ==
LOC: NCHCN 12:07
PROVIDERS: PCP Family Medicine; Visit Provider Family Medicine
DX: E11.9 Type 2 diabetes mellitus without complications (principal); R61 Generalized hyperhidrosis
CPT/HCPCS: 80053; 83036; 84443; 85025; 86140

== ENCOUNTER → 2023-10-03 03:08 | Outpatient (CLI) | payer OTHER, SELFPAY ==
--- NOTE | 2023-10-03 | DI.CT_ITS ---
Exam(s) CT CHEST WO EXAM: CT CHEST WO CLINICAL HISTORY: F/U PULMONARY NODULE, R91.1, OF 09/26/22. TECHNIQUE: Imaging protocol: Axial computed tomography images were obtained and coronal and sagittal reformatted images were created and reviewed. COMPARISON: CT CT CHEST WO from 09/20/[address] CHEST WO from 09/21/2022 FINDINGS: Tracheobronchial tree: Patent where visualized. Pulmonary parenchyma: There is a stable 6 mm nodule in the medial aspect of the base of the left lowe r lobe (series 3, image 406). No new pulmonary nodules. There are calcified granuloma present. No architectural distortion. Mediastinum and Elissa: No dominant adenopathy or fluid collection. The esophagus is unremarkable. Thyroid gland: Unremarkable. Pleura: No effusion or pneumothorax. Heart: The heart is not dilated. Coronary artery calcification and/or stents are present. No pericar dial effusion. Aorta: Thoracic aorta non-dilated. Atherosclerotic calcification is present. Upper abdomen: Unremarkable. Lymph nodes: Within normal limits. Soft tissues: Mild gynecomastia. Bones:Within normal limits for the patient's age. IMPRESSION: 1. Stable left lower lobe pulmonary nodule. No new pulmonary nodules. 2. Solitary noncalcified solid nodules measuring 6???8 mm in patients with low clinical risk are brendan mmended to undergo initial follow-up at 6???12 months depending on size, morphology, and patient pref erence (grade 1C: strong recommendation, low- or [id number] evidence). (Wanda et al., 2017) For solitary solid noncalcified nodules measuring 6???8 mm in patients at high risk, an initial follo w-up examination is recommended at 6???12 months and again at 18???24 months (grade 1B: strong recomm endation, moderate quality evidence). (Wanda et al., 2017) RADIATION DOSE DELIVERED: Total DLP Total DLP DATA REPOSITORY: All CT scans at this facility are submitted to the National Radiology Data Registry (NRDR) Dose Index Registry (DIR) with the [employer] (ACR). RADIATION OPTIMIZATION: All CT scans at this facility use at least one of these dose optimization te chniques: automated exposure control; mA and/or kV adjustment per patient size (includes targeted exa ms where dose is matched to clinical indication); or iterative reconstruction.
--- NOTE | 2023-10-03 | DI.US_ITS ---
Exam(s) US CAROTID EXAM: US CAROTID CLINICAL HISTORY: TRANSIENT CEREBRAL ISCHEMIA, G45.9. TECHNIQUE: Ultrasound carotids performed using grayscale, color-flow, and spectral Doppler imaging. COMPARISON: No priors for comparison. FINDINGS: RIGHT CAROTID ARTERY: Plaque: There is calcific plaque seen in the carotid bulb in the proximal right internal carotid arsh ry. Velocity elevation: None. LEFT CAROTID ARTERY: Plaque: There is mild calcific plaque seen in the carotid bulb. Velocity elevation: None. VERTEBRAL ARTERIES: Antegrade flow. Measurements: R Bulb: 90.3cm/s PS / 20.3cm/s ED R CCA: 95.7cm/s PS / 18cm/s ED R ECA: 132.5cm/s PS / 15.7cm/s ED R ICA Prox: 92.5cm/s PS / 25.8cm/s ED R ICA Mid: 89.3cm/s PS / 25cm/s ED R ICA Distal: 57.3cm/s PS /17.5cm/s ED R Vert: 57.7cm/s PS / 17cm/s ED R SVR: 1 R DVR: 1.4 L Bulb: 88.1cm/s PS / 16cm/s ED L CCA: 88.9cm/s PS / 17.6cm/s ED L ECA: 123.9cm/s PS / 12.6cm/s ED L ICA Prox: 69.4cm/s PS / 23.4cm/s ED L ICA Mid: 66.8cm/s PS / 24.9cm/s ED L ICA Distal: 73.5cm/s PS / 23cm/s ED L Vert: 68.4cm/s PS / 11.2cm/s ED L SVR: 1 L DVR: 0.9 IMPRESSION: No evidence for hemodynamically significant carotid stenosis. Criteria for Carotid Stenosis: Normal: ICA PSV <125 cm/s no plaque or intimal thickening is visible. <50% stenosis: ICA PSV <125 cm/s and plaque or intimal thickening is visible. 50-69% stenosis: ICA PSV is 125-250 cm/s and plaque is visible. >70% stenosis to near occlusion: ICA PSV >250 cm/s with visible plaque and luminal narrowing. DATA REPOSITORY:
== END ==
PROVIDERS: PCP Family Medicine; Visit Provider Family Medicine
DX: G45.9 Transient cerebral ischemic attack, unspecified (principal); R91.1 Solitary pulmonary nodule
CPT/HCPCS: 71250; 93880

== ENCOUNTER 2024-02-15 07:21 | Emergency (ER) | payer OTHER, SELFPAY ==
[2024-02-15 07:34] VITALS: BP 140/68; PULSE 59; RESP 15; TEMP 36.5; O2SAT 99
--- NOTE | 2024-02-15 08:00 | DI.US_ITS ---
Exam(s) US SCROTUM EXAM: US SCROTUM CLINICAL HISTORY: left testicle swollen, tender. TECHNIQUE: Scrotal ultrasound performed using grayscale, color-flow and spectral Doppler analysis. COMPARISON: No exams were available for comparison FINDINGS: Right testicle: 3.6 x 2.5 x 4.7 cm Echogenicity: Normal. Contour: Smooth. Mass: None seen. Microlithiasis: None. Hydrocele: There is a small right hydrocele. Variocele: None. Hernia: No peristalsing bowel loop identified. Epididymis: Normal. Left testicle: 3.8 x 3.7 x 3.9 cm Echogenicity: Normal. Contour: Smooth. Mass: None seen. Microlithiasis: None. Hydrocele: There is a large left hydrocele measuring 6.4 x 5.6 x 4.7 cm. Incidental note is made of a small scrotal magi. Variocele: None. Hernia: No peristalsing bowel loop identified. Epididymis: Left epididymis cannot be visualized on this examination. DOPPLER: Color: Symmetric and uniform, no hyperemia. IMPRESSION: 1. Normal appearing bilateral testicles. 2. Large left hydrocele. DATA REPOSITORY:
[2024-02-15] MEDS: Acetaminophen 325 MG TAB 650 MG PO (08:11)
[2024-02-15 08:20] LABS: Bilirubin Negative (Negative); Blood Negative (Negative); Clarity Clear (Clear); Glucose >=1000 mg/dL (Negative); Ketones Negative (Negative); Leukocyte Esterase Negative (Negative); Nitrite Negative (Negative); Urobilinogen 0.2 mg/dL (Up to 0.2)
[2024-02-15 08:30] LABS: Bacteria Rare HPF (Negative); C & S Indicated? No; Crystals Negative HPF (Negative); Epithelial Cells Negative HPF (Negative); Mucus Negative (Negative); RBC 0-2 HPF (0-2); WBC Negative HPF (0-5)
[2024-02-15 09:36] VITALS: BP 105/65; PULSE 59; RESP 18; TEMP 36.5; O2SAT 97
--- NOTE | 2024-02-15 09:52 | ED.GENADUL_ITS ---
Discharge Plan Disposition Patient Disposition: Home Condition: Stable Discharge Details Clinical Impression: Hydrocele, left Primary Care Provider: Андрей Coello ED Provider: Curt Velazquez Home Meds and New Rx's Prescriptions: Continued metoprolol tartrate 50 mg tablet 50 mg PO BID Patient Comments: 02/14/21 from PCP list who writes for this medication. RH Jardiance 25 mg tablet 25 mg PO DAILY aspirin [Adult Low Dose Aspirin] 81 mg tablet,delayed release (DR/EC) 81 mg PO DAILY paroxetine HCl 30 mg tablet 30 mg PO DAILY triamcinolone acetonide 0.1 % cream 1 applic TP BID PRN ketoconazole 2 % cream 1 applic TP BID PRN nitroglycerin [Nitrostat] 0.4 mg tablet, sublingual 0.4 mg Sublingual PRN PRN (Reason: chest pain) Qty: 10 12RF furosemide 20 mg tablet 20 mg PO DAILY Qty: 90 3RF Trulicity 0.75 mg/0.5 mL pen injector 1.5 mg subcut QWEEK atorvastatin 80 mg tablet 40 mg PO DAILY fluocinonide-emollient [Fluocinonide-E] 60 GM cream 60 g Topical PRN PRNQty: 1 Rx Instructions: use on hands but not elsewhere.HE levothyroxine 25 MCG tablet 25 mcg PO DAILY losartan 25 mg tablet 25 mg PO DAILY Qty: 90 3RF metformin 500 MG tablet extended release 24 hr 1,000 mg PO BID acetaminophen [Tylenol Extra Strength] 500 mg Tablet 500 mg PO Q8H PRN PRN tamsulosin [Flomax] 0.4 mg Capsule 0.4 mg PO DAILY cholecalciferol (vitamin D3) [Vitamin D3] 1,000 unit Capsule 1,000 unit PO DAILY Discharge Instructions Instructions: Hydrocele Additional Instructions: Please follow-up with urology. Call to schedule an appointment. Return to the ER immediately for any worsening or new concerning symptoms. Referrals: [facility] [Provider Group] Discharge Data Discharge Date/Time-TO BE ENTERED AT DEPARTURE: 02/15/24 10:24 HPI General Mode of arrival: ambulatory . Date/Time Provider Initiated Documentation: 02/15/24 07:52 . Limitations to Documentation: no limitations . Information obtained by: patient . HPI Narrative: 63-year-old male presents with chief complaint of left testicular pain. Patient notes pain and swelling since this morning. Patient states that he recalls getting into a car 3 weeks ago and feeling a painful crunch in his testicle. Has not been painful until today. No dysuria. No penile discharge. Not sexually active. Patient notes some intermittent discomfort in left lower abdomen. Related Data Home Medications ?Medication ?Instructions ?Recorded ?Confirmed fluocinonide-emollient 0.05 % 60 g topical PRN PRN ##1 05/21/13 02/15/24 topical cream (Fluocinonide-E) metformin 500 mg tablet,extended 1,000 mg PO BID 05/20/14 02/15/24 release 24 hr levothyroxine 25 mcg tablet 25 mcg PO DAILY 02/25/15 02/15/24 acetaminophen 500 mg tablet 500 mg PO Q8H PRN PRN 06/16/18 02/15/24 (Tylenol Extra Strength) cholecalciferol (vitamin D3) 25 1,000 unit PO DAILY 06/16/18 02/15/24 mcg (1,000 unit) capsule (Vitamin D3) tamsulosin 0.4 mg capsule (Flomax) 0.4 mg PO DAILY 06/16/18 02/15/24 aspirin 81 mg tablet,delayed 81 mg PO DAILY 05/08/19 02/15/24 release (Adult Low Dose Aspirin) empagliflozin 25 mg tablet 25 mg PO DAILY 05/08/19 02/15/24 (Jardiance) ketoconazole 2 % topical cream 1 applic topical BID PRN 05/08/19 02/15/24 paroxetine HCl 30 mg tablet 30 mg PO DAILY 05/08/19 02/15/24 triamcinolone acetonide 0.1 % 1 applic topical BID PRN 05/08/19 02/15/24 topical cream nitroglycerin 0.4 mg sublingual 0.4 mg sublingual PRN PRN chest 10/12/20 02/15/24 tablet (Nitrostat) pain #10 tabs furosemide 20 mg tablet 20 mg PO DAILY #90 tabs 11/16/20 02/15/24 dulaglutide 0.75 mg/0.5 mL 1.5 mg subcut QWEEK 02/14/21 02/15/24 subcutaneous pen injector (Trulicity) metoprolol tartrate 50 mg tablet 50 mg PO BID 02/14/21 02/15/24 atorvastatin 80 mg tablet 40 mg PO DAILY 03/06/23 02/15/24 losartan 25 mg tablet 25 mg PO DAILY #90 tabs 08/06/23 02/15/24 Previous Rx's ?Medication ?Instructions ?Recorded nitroglycerin 0.4 mg sublingual 0.4 mg sublingual PRN PRN chest 10/12/20 tablet (Nitrostat) pain #10 tabs furosemide 20 mg tablet 20 mg PO DAILY #90 tabs 11/16/20 losartan 25 mg tablet 25 mg PO DAILY #90 tabs 08/06/23 Allergies Allergy/AdvReac Type Severity Reaction Status Date / Time NIGEL Inhibitors AdvReac Cough Verified 02/15/24 07:37 codeine AdvReac Nausea Verified 02/15/24 07:37 gabapentin AdvReac vision Verified 02/15/24 07:37 trouble, dizzy,nausea lisinopril AdvReac cough Verified 02/15/24 07:37 General Stated Complaint: Male Reproductive Problem TIFFANI: 3 Review of Systems All systems reviewed & are unremarkable except as noted in HPI and below Constitutional Constitutional: Denies fever(s) Genitourinary Genitourinary: Reports as per HPI Exam HENCO Mouth: moist mucous membranes Eyes Conjunctivae: normal conjunctivae Sclera: normal sclerae Resp Auscultation: clear to auscultation bilaterally, no rales, no rhonchi and no wheezes Cardio Rate: regular rate and not tachycardic Rhythm: regular rhythm GI Palpation: soft, not firm, no guarding, no masses, not rigid and nontender Penis: normal penis Scrotum: no ecchymosis, not erythematous and scrotal swelling on the left Skin General skin exam: no rashes or lesions noted Neuro General: patient alert and patient awake Course Vital Signs Vital signs: Vital Signs Temperature 36.5 C 02/15/24 07:34 Pulse 59 L 02/15/24 07:34 Respiratory Rate 15 02/15/24 07:34 Blood Pressure 140/68 02/15/24 07:34 Pulse Oximetry 99 02/15/24 07:34 Temperature 36.5 C 02/15/24 09:36 Temperature Source Oral 02/15/24 09:36 Pulse 59 L 02/15/24 09:36 Respiratory Rate 18 02/15/24 09:36 Respiratory Effort Normal 02/15/24 07:36 Blood Pressure 105/65 02/15/24 09:36 Blood Pressure Position Sitting 02/15/24 07:34 Pulse Oximetry 97 02/15/24 09:36 Oxygen Delivery Method Room Air 02/15/24 09:36 Oxygen Flow Rate 0 02/15/24 09:36 Pain Level 0 02/15/24 09:36 Lab/Test Results Lab/Test Results: Laboratory Tests Range/Units 02/15/24 08:13 Urine Color (Yellow) Yellow Urine Clarity (Clear) Clear Urine pH (5-8) 5.0 Ur Specific [place] (1.005-1.025) 1.010 Urine Protein (Neg-Trace) mg/dL Negative Urine Ketones (Negative) mg/dL Negative Urine Blood (Negative) Negative Urine Nitrite (Negative) Negative Urine Bilirubin (Negative) Negative Urine Urobilinogen (Up to 0.2) mg/dL 0.2 Ur Leukocyte Esterase (Negative) Negative Urine RBC (0-2) HPF 0-2 Urine WBC (0-5) HPF Negative Ur Epithelial Cells (Negative) HPF Negative Urine Crystals (Negative) HPF Negative Urine Bacteria (Negative) HPF Rare Urine Mucus (Negative) Negative Ur Culture Indicated? No Urine Glucose (Negative) mg/dL >=1000 H Medical Decision Making 955 -- 63yo male here with left scrotal swelling and pain since this AM. Patient has left-sided scrotal swelling on exam. Scrotum mildly tender. No erythema. 1011 --ultrasound of the scrotum was interpreted by radiology: Large left hydrocele noted. Plan for discharge with outpatient follow-up with urology. Imaging Data Radiologic Study: Imaging: Ultrasound Radiologist's impression: FINDINGS: Right testicle: 3.6 x 2.5 x 4.7 cm Echogenicity: Normal. Contour: Smooth. Mass: None seen. Microlithiasis: None. Hydrocele: There is a small right hydrocele. Variocele: None. Hernia: No peristalsing bowel loop identified. Epididymis: Normal. Left testicle: 3.8 x 3.7 x 3.9 cm Echogenicity: Normal. Contour: Smooth. Mass: None seen. Microlithiasis: None. Hydrocele: There is a large left hydrocele measuring 6.4 x 5.6 x 4.7 cm. Incidental note is made of a small scrotal magi. Variocele: None. Hernia: No peristalsing bowel loop identified. Epididymis: Left epididymis cannot be visualized on this examination. DOPPLER: Color: Symmetric and uniform, no hyperemia. IMPRESSION: 1. Normal appearing bilateral testicles. 2. Large left hydrocele. Quality:SDOH Health Related Social Needs: No Data to Display PFSH All Active Problems (Updated 02/15/24 @ 10:13 by Curt Velazquez MD) Hydrocele, left (Acute) Tubular adenoma of colon (Acute ~09/18/22) ASCVD (arteriosclerotic cardiovascular disease) (Acute) Loose stools (Acute) Enlarged liver (Acute) Coronary artery calcification seen on CAT scan (Acute) Hypothyroid (Chronic) Diverticulitis (Chronic) Rectal/anal hemorrhage (Acute) Intention tremor (Acute 01/08/13) Candidal intertrigo (Acute) Tinnitus (Acute) Sensorineural hearing loss of both ears (Acute) Chest pain (Acute) Left rotator cuff tear (Acute) Biceps tendinitis of left shoulder (Acute) Bursitis of left shoulder (Acute) DJD of left AC (acromioclavicular) joint (Acute) Left carpal tunnel syndrome (Acute) Screening for colon cancer (Acute) Left shoulder pain (Acute) Elevated bilirubin (Acute) Lung nodule (Acute) Trochanteric bursitis of both hips (Acute) Hearing loss in right ear (Acute) Lateral epicondylitis (Acute) Memory impairment (Acute) Dyspepsia (Acute) Angina pectoris (Chronic) Adhesive capsulitis of left shoulder (Acute) Lumbar spinal stenosis (Acute) Subclinical hypothyroidism (Acute) Anxiety (Chronic) Depression (Chronic) Vitamin deficiency (Acute) No-show for appointment (Acute) Medical History Lower urinary tract symptoms Hx of type 2 diabetes mellitus Diabetic peripheral neuropathy Chronic back pain Spinal stenosis Surgical History History of colonoscopy with polypectomy (~09/18/22) Hx of cardiac catheterization 09/2020x3 stents placed Hx of knee surgery right Coronary Stent x3 Colonoscopy - MAC Family History Father Heart disease Social History Smoking/Tobacco Use Status: Former Tobacco Use Quit Date: 07/23/97 Tobacco: How many years used: 29 Smoking risk assessment performed?: Yes Alcohol Intake: former Year quit: 1997 Drug use: Daily Substance use type: marijuana Current gender identity: male What type of physical activity do you participate in: walking Duration: < 15 minutes/day Frequency: 3-4 times per week Do you feel safe at home: Yes Do you feel safe in your relationship?: Yes Additional Social history: lives alone
[2024-02-15 10:29] VITALS: BP 119/63; PULSE 56; RESP 18; O2SAT 97
== END 2024-02-15 10:24 | disposition home or self-care (01) ==
PROVIDERS: Emergency Provider Student in an Organized Health Care Education/Training Program; PCP Family Medicine
DX: N50.812 Left testicular pain (principal); N43.3 Hydrocele, unspecified; E11.9 Type 2 diabetes mellitus without complications
CPT/HCPCS: 36416; 82962; 99284; 76870; 81003; 81015; 99283

== ENCOUNTER → 2024-03-04 09:20 | Outpatient (BNVA) | payer MEDICARE, SELFPAY | PROVIDERS: PCP Family Medicine; Referring Provider Family Medicine; Visit Provider Internal Medicine Cardiovascular Disease | DX: I25.10 Atherosclerotic heart disease of native coronary artery without angina pectoris (principal) | CPT/HCPCS: 99213 ==

== ENCOUNTER 2024-03-05 10:37 | Outpatient (REF) | payer MEDICARE, SELFPAY ==
--- OUTSIDE RECORDS SUMMARY | 2024-03-05 10:40 | XMS_ITS | Encounter Summary ---
Author Organization Formerly [facility] [place] [address] Care Team Providers Care Skid Adzer Name Role Phone Андрей Coello MD Primary Care Provider [phone] Reason for Visit * Speech Therapy (Routine) - Authorized Specialty Diagnoses / Procedures Referred By Chin helm Referred To Contact Speech Pathology / Speech Therapy Diagnoses Aphasia RFV aphasia Ronnie Jamil MD [address] [address] [place] [address] [facility] [place] [address] Referral ID Status Reason Start Date Expiration Date Visits Requested Visits Authorized [id number] Authorized Evaluate and Treat 11/22/2023 11/21/2024 100 100 Encounter Details Date Type Department Care Team (Latest Contact Info) Description 02/12/2024 11:00 AM EDT [place] [phone] Ananya Torres, RESTORATION TECHNICIAN Cognitive communication deficit Social History Tobacco Use Types Packs/Day Years Used Date Smoking Tobacco: Former Cigarettes Q uit: 10/09/2010 Smokeless Tobacco: Never Sex and Gender Information Value Date Recorded Sex Assigned at Not on file Gender Identity Not on file Sexual Orientation Not on file documented as of this encounter Miscellaneous Notes * Treatment - Therapy - Ananya Torres, RESTORATION TECHNICIAN - 02/12/2024 11:00 AM EDT Speech Therapy Note Patient Name: Elias Pennington Date of : 1960 Referring MD: Ronnie Jamil Date Seen by MD: 11/22/2023 Diagnosis: Cognitive-Communication Disorder Date of Onset: 2022 Date of Evaluation: 01/31/2024 Total Treatment Time: 60 minutes Certification Period: 01/31/2024 - 04/29/2024 Total Timed Code Treatment: 0 minutes Patient Profile: Elias Pennington is a 63 y.o. RIGHT hand dominant male who was seen on 01/31/2024 for an Outpatient Adtxyh-Kltbcqod-Wrcegfnfc Evaluation. PMHx is significant for CAD (3 stents here at [facility]), HLD, HTN, DMII (HbA1c unclear at this time), lumbar spinal stenosis, WILLIS on CPAP, and MDD. He was referred by Ronnie Jamil with a diagnosis of transient expressive aphasia, c/f TIA vs underlying seizure. MRI Angiogram Head wo Contrast is scheduled for 03/26/2024 with radiology as further work-up of these symptoms. Results of Elias's avufqb-meubpxxt-frhrriakr evaluation reveal the following: Results of standardized assessment, formal interview, and patient reported outcome measures reveala mild cognitive-communication disorder characterized by mild difficulties in the domains of memory, speech comprehension, reading comprehension, writing, attention, and problem solving. While he hadone instance of dysfluency characterized by a sound prolongation and two instances of word- finding difficulties at the conversational level, he scored 97.7 on the WAB-R indicating no concern for aphasia at this time. Voice was generally effective without significant worsening of quality across the nearly two hour session. Interval History: No acute events have occurred per chart review. Patient reports that he had headaches all morning yesterday. During a conversation with his brotherhe had another episode of transient aphasia which lasted for 45 seconds to 1 minute and was unable to communicate at all. He states he felt like he was in a daze and then was completely fine after that. Subjective: Elias was encountered in the outpatient rehab office, unaccompanied. He was pleasant and engaged throughout this session. Brought glasses with him today. Objective: Pt seen for speech therapy targeting cognitive-communication and word-finding and demonstrated the following: Pain: Did not appear to be in acute distress. Cognitive-Linguistic Intervention: Education: Elias was provided education through a collaborative discussion about memory, attention,and word-finding strategies for cognitive-communication disorders. Education was provided in order to support understanding and choice- making, which is linked to motivation and outcomes in treatment.The patient demonstrated knowledge through asking appropriate questions and describing how to implement these strategies into day to day activities. Reported today he took his meds out but couldn't remember if he had taken them. Brother reminded him. He uses a pill box, but only has slots for one time of day. Reported he wants to get a new one with vkqiagu-oaxy-gzldk slots. Brother is staying with him until they find out what is causing these episodes of transient aphasia. Card sorting activity: - Selective attention Pt provided with a deck of cards and was tasked with sorting by suroseanne. 52/52= 100% accuracy independently Memory Card Game: - Memory and compensatory strategy training Pt provided with 12 cards placed upside down (6 pairs). Pt tasked with flipping over two cards at atime and finding matches. Trained pt in using repetition/speaking aloud, visualization, and slowingdown/taking their time during tasks. Trial 1- 0x4 with moderate cueing Trial 2- 1x with minimal cueing Semantic Feature Analysis (SFA): Semantic Feature Analysis is a treatment approach used to target word-finding skills through the direct stimulation of semantic categories. Pt was provided with a target picture and was asked to describe the group to which it belongs, the use, what it does (action), what it reminds the pt of (association), location where it would be found, and the properties or description of it. Trial 1: Star- 6/6 with moderate cueing. Trial 2: Ladder- 6/6 with minimal cueing. Phonological Components Analysis (INVESTIGATOR VICE): Phonological Components Analysis is a treatment approach based off of the principles and structure of SFA. It targets word-finding skills through the direct stimulation of phonological categories. Ptwas provided with a target picture and was asked to identify the first sound, another word that starts with that sound (first sound associate), final sound, rhyming word, and number of syllables. Trial 1: Star- 5/5 with moderate cueing. Trial 2: Ladder- 5/5 with moderate cueing. Observations: Always had trouble with syllables at school per patient-report. Education:Utilized a handout detailing RESTORATION TECHNICIAN recommendations/compensatory strategies, specifically focusing on memory, attention, and word-finding. Re- educated on role of the RESTORATION TECHNICIAN and overview of the rehab program. Provided in-depth compensatory strategy training and utilized them in functional activities as described above. At the end of the session Elias denied outstanding questions or concerns. Secure chat message was sent to the referring provider, Dr. Ronnie Jamil (Neurology) with concernsof transient aphasia episodes and headaches becoming more frequent. Elias is aware. Home Exercise Program: Recommend completion of cognitive stimulation exercises for a minimum of 30 minutes per day. Memory card game- handout provided. Semantic Feature Analysis and Phonological Components Analysis worksheets Think of examples of how to implement strategies into day to day life. Assessment: Elias Pennington was seen on 02/12/2024 for a follow-up RESTORATION TECHNICIAN visit. Addressed treatment goals targeting education and implementation of strategies specifically focusing on attention, memory, and word-finding. He benefited from minimal to moderate verbal cueing for Semantic Feature Analysis and Phonological Components Analysis. Provided him with worksheets of the frameworks to practice in the home environment and set him up with a home exercise program. Recommended high-intensity practice to make up for sessions being held every other week instead of weekly. He verbalized understanding and agreement. Elias reported that he has had another episode of transient aphasia yesterday (6-7 since seeing Neurologist in November) and has headaches across the top of his had localized moreso on the left side. At least minor word-finding difficulties are occurring daily. This was relayed to the referring providerand pt was encouraged to go to the local ED when transient aphasia episodes arise for further work-up, if possible. Recommend participation in skilled RESTORATION TECHNICIAN services to further train compensatory strategies to bypass current cognitive-linguistic dysfunctions, target the holiness of prior level of functioning, andaid in safe and effective completion of ADL and IADLs as related to cognitive-communicative functioning. Patient will benefit from continued therapeutic interventions and participation in a home exercise program to achieve therapy goals. Diagnosis: Mild cognitive-communication disorder; Word-finding difficulties Unknown etiology Recommendations: Internal memory strategies: Repetition: saying the same information over and over either in your mind or out loud Clarification: asking people questions to ensure you understand Chunking: breaking down instructions or groups of things into smaller chunks Rhyming: making a rhyme out of important information Visualization: making a picture of the information in your mind, especially where you put somethingdown Association: linking old information (terminal makeup operator memory) with new information such as taking medicine with breakfast External memory strategies: Write things down in a estate planner or on a calendar Set timers or alarms to remind yourself to do something Write notes to remind yourself to do something (to-do list, shopping list, etc.) Keep important items in the same place so you always remember where they are Stick to a consistent daily routine Word-Finding Strategies Delay Wait a few seconds to see if the word may come out on its own. Be patient with yourself, and ask your communication partner to give you time. ???Do you have any??? wait a minute??? a pen??? Describe Talk around the word. Give the listener a description of the word you are looking for such as color, size, what it's used for, where you'd find it, etc. ???Do you have a??? thing that you write with??? Synonyms Think of a word that means the same or something similar. ???Do you have a??? writing utensil?Not a pencil? First Letter Try to write or think of the first letter of the word. Scan the alphabet to see if any letter triggers anything for you. ???Do you have a??? (trace a ???P?? in the air)??? pen?Do you have a??? it starts with a p? Gesture Use your hands or body to act out the word, like playing a game of charades. Even gesturing with your hands in a non-specific way or tapping the table may help activate the brain. ???Do you have a??? (pretend to write)??? Draw Sketch out a quick picture of what you're trying to say. You don't have to be an artist to use drawing to communicate. ???Do you have a??? (draws a pen on a notepad)??? Come Back Later If you can't think of the word and your partner can't guess, it's okay to give up for now. This is a last resort, so try other strategies first. ???Do you have a??? [tries every other strategy]??? oh, never mind??? I'll ask you later.?? Adapted from: [email or web address] Patient would benefit from continued RESTORATION TECHNICIAN services. Short Term Goals: - Patient will teach back compensatory language strategies with 100% accuracy given minimal cueing. - Patient will teach back compensatory cognitive-linguistic strategies with 100% accuracy given minimal cueing. - Patient will use trained pjzhyq-yxgdyyni-uwbbppwmo strategies to complete a functional task with 90% accuracy given minimal cueing. - Patient will demonstrate selective attention to auditory stimuli with 90% accuracy given minimal fading cueing. - Patient will demonstrate selective attention to visual stimuli with 90% accuracy given minimal fading cueing. - Patient will demonstrate alternating attention by being able to shift focus between tasks/activities with 90% accuracy given minimal fading cueing. - Patient will demonstrate divided attention by responding to multiple tasks or details within tasks at the same time with 90% accuracy given minimal fading cueing. - Patient will utilize trained compensatory strategies while presented with auditory instructions and recall 80% of the information given use of external memory aids. - Patient will utilize trained compensatory strategies to aid in communicative effectiveness across5 opportunities per session given minimal cueing. - Patient will describe 5 features of a target words using principles of Phonological Components Analysis given minimal cueing. - Patient will describe 6 features of a target words using principles of Semantic Feature Analysis given minimal cueing. Intermediate Goal(s): - Patient will independently demonstrate compensatory and support strategies to improve cognitive-communicative effectiveness in the current living, community, and work environments. Plan: - Recommend skilled RESTORATION TECHNICIAN services for 1x per week, every other week, 60 minute sessions, for 6 sessions. Sessions will be held in-person. - Implementation of a Home Exercise Program - Patient to follow-up with referring provider, as needed Elias verbalized agreement with the treatment plan. Thank you for this consult with this patient. Please feel free to contact me with any questions or concerns. Ananya Torres, MS, [facility]-RESTORATION TECHNICIAN Speech-Language Pathologist Pager # [phone] documented in this encounter Plan of Treatment Upcoming Encounters Date Type Department Care Team (Late st Contact Info) Description 03/11/2024 8:00 AM EDT Office Visit Speech Therapy at [facility] [place] [address] Ananya Torres, RESTORATION TECHNICIAN 03/26/2024 9:00 AM EDT Appointment Non-Invasive Cardiology [place] [address] Ronnie Jamil MD [address] [place] [address] [place] [address] 03/26/2024 11:30 AM EDT Appointment MRI at [facility] [place] [address] Ronnie Jamil MD [address] [address] [place] [address] 03/26/2024 2:30 PM EDT Appointment [place] [address] 03/26/2024 4:30 PM EDT Office Visit Neurology at [facility] [place] [address] Ronnie Jamil MD [address] [place] [address] [place] [address] 04/01/2024 8:00 AM EDT Office [place] [address] Ananya Torres, RESTORATION TECHNICIAN 04/15/2024 8:00 AM EDT [place] [address] Ananya Torres, RESTORATION TECHNICIAN 04/29/2024 8:00 AM EDT Office Visit Speech Therapy at [facility] [place] [address] Ananya Torres, RESTORATION TECHNICIAN documented as of this encounter Visit Diagnoses Diagnosis Cognitive communication deficit documented in this encounter Care Teams Skid Adzer Relationship Specialty Start Date End Date Андрей Coello MD [address] [place] [address] PCP - General 12/05/16 documented as of this encounter
--- OUTSIDE RECORDS SUMMARY | 2024-03-05 10:40 | XMS_ITS | Encounter Summary ---
Author Organization [facility] [place] [address] Care Team Providers Care Property Loss Insurance Claim Adjuster Name Role Phone Андрей Coello MD Primary Care Provider [phone] Reason for Referral * Diagnostic Test (Routine) - Authorized Specialty Diagnoses / Procedures Referred By Chin helm Referred To Contact Cardiology Diagnoses TIA (transient ischemic attack) Procedures Echocardiogram Transthoracic Echocardiogram Transthoracic Ronnie Jamil MD [address] [place] [address] [place] [address] [facility] [place] [address] Referral ID Status Reason Start Date Expiration Date Visits Requested Visits Authorized [id number] Authorized Specialty Service Requested 11/22/2023 11/21/2024 1 1 * Diagnostic Test (Routine) - Authorized Specialty Diagnoses / Procedures Referred By Chin helm Referred To Contact Radiology Diagnoses TIA (transient ischemic attack) Procedures MRI Angiogram Head wo Contrast (Generic) Ronnie Jamil MD [address] [place] [address] [place] [address] [facility] [place] [address] Referral ID Status Reason Start Date Expiration Date Visits Requested Visits Authorized [id number] Authorized Specialty Service Requested 11/22/2023 05/24/2025 1 1 * Speech Therapy (Routine) - Authorized Specialty Diagnoses / Procedures Referred By Chin helm Referred To Contact Speech Pathology / Speech Therapy Diagnoses Aphasia RFV aphasia Ronnie Jamil MD [address] [place] [address] [place] [address] [facility] Clinical [place] [address] Referral ID Status Reason Start Date Expiration Date Visits Requested Visits Authorized [id number] Authorized Evaluate and Treat 11/22/2023 11/21/2024 100 100 Reason for Visit * Reason Comments Aphasia * Consultation (Routine) - Closed Specialty Diagnoses / Procedures Referred By Chin helm Referred To Contact Neurology Diagnoses Expressive language disorder ? TIAs Андрей Coello MD [address] [place] [address] [place] [address] [facility] Neurology [address] [place] [phone] Referral ID Status Reason Start Date Expiration Date V isits Requested Visits Authorized [id number] Closed Consult, Test & Treat 07/05/2023 07/04/2024 1 1 Encounter Details Date Type Department Care Team ([facility] Contact Info) Description 11/22/2023 10:00 AM EDT [place] [address] Ronnie Jamil MD [address] [place] [address] [place] [address] TIA (transient ischemic attack); Aphasia Social History Tobacco Use Types Packs/Day Years Used Date Smoking Tobacco: Former Cigarettes Q uit: 10/09/2010 Smokeless Tobacco: Never Sex and Gender Information Value Date Recorded Sex Assigned at Not on file Gender Identity Not on file Sexual Orientation Not on file documented as of this encounter Last Filed Vital Signs Vital Sign Reading Time Taken Comments Blood Pressure 132/72 11/22/2023 9:37 AM EDT Pulse - - Temperature - - Respiratory Rate - - Oxygen Saturation - - Inhaled Oxygen Concentration - - Weight 127.9 kg (282 lb) 11/22/2023 9:37 AM EDT pt reported Height 182.9 cm (6') 11/22/2023 9:37 AM EDT pt r eported Body Mass Index 38.25 11/22/2023 9:37 AM EDT documented in this encounter Patient Instructions * Patient Instructions* Ronnie Jamil MD - 11/22/2023 10:00 AM EDT - Please schedule and obtain echocardiogram prior to the next visit. - Please schedule and obtain speech pathology evaluation prior to the next visit. - Please schedule and obtain routine EEG prior to the next visit. - Please schedule and obtain MRA (angiogram) of the head prior the next visit. - Keep track of and monitor your symptoms moving forwards. - Follow-up with your PCP regarding sleep apnea. - Follow-up with your PCP. - Follow-up with eye care provider as instructed by your PCP. - Return to clinic for follow-up in 3 months. Modifiable Risk Factors in Secondary Stroke Prevention Risk Factor Treatment Goals Hypertension Patients with hypertension: <140/90 mm Hg; 10-mm Hg reduction in systolic BP and 5-mm Hg reduction in diastolic BP from baseline Patients with diabetes mellitus or renal disease: <130/80 mm Hg; 10-mm Hg reduction in systolic BP and 5-mm Hg reduction in diastolic BP from baseline Patients without hypertension: <120/80 mm Hg; 10-mm Hg reduction in systolic BP and 5-mm Hg reduction in diastolic BP from baseline Dyslipidemia Atherosclerotic stroke or TIA: low-density lipoprotein (LDL) cholesterol level <70 mg/dl or 50% reduction in LDL cholesterol level from baseline Nonatherosclerotic stroke or TIA: per National Cholesterol Education Program (NCEP) Adult TreatmentPanel III (ATP-III) goals Diabetes Mellitus HgA1c level <7% Cigarette Smoking Complete cessation Alcohol Consumption Men: two or fewer drinks per day Non woman: one or fewer drinks per day Physical Activity At least 30 minutes of moderate intensity physical exercise 1- 3 times per week Diet Low-fat, low-sodium, and Mediterranean or Dietary Approaches to Stop Hypertension diets (diabetic diet when applicable) Obesity Goal body mass index of 18.5-25 kg/m2 * Attachments The following attachments cannot be sent through Care Everywhere. * TIA (Transient Ischemic Attack) (Hebrew) * Stroke: Symptoms: General Info (Hebrew) documented in this encounter Progress Notes * Ronnie Jamil MD - 11/22/2023 10:00 AM EDT [facility] DEPARTMENT OF NEUROLOGY GENERAL NEUROLOGY CLINIC INITIAL VISIT Patient name: Elias Pennington Date of : 1960 Referring provider: Андрей Coello MD [address] [place] [address] PCP: Андрей Coello MD [facility] [place] [address] Date: 11/22/2023 Time: 10:00 CC: Chief Complaint Patient presents with Aphasia HPI: Elias Pennington is a 63 y.o. R-handed man with a history of CAD (3 stents here at [facility]), HLD, HTN, DMII (HbA1c unclear at this time), lumbar spinal stenosis, WILLIS on CPAP, and MDD referred to the [facility] neurology clinic for evaluation of transient neurological symptoms, specifically described as expressive dysphasia. Referring provider concerned about possibility of TIA or seizure activity. History obtained from patient and chart review. His PCP and referring provider is Dr. Coello. 8-10 months ago --> Was at store with sister, said Hi to her, then began stuttering really bad. Knew what he wanted to say, but had a hard time getting it out, but it eventually did. Occurred a few times that day. Been a while since it happened again, was a short stutter. Lasted [id number] seconds at the time. 3 weeks ago in 10/2023. Was standing in his house at the time, talking tohis brother. Overall, has occurred on 2 separate occasions. He endorses chronic fatigue, which he feels may be contributing. He endorses feeling dizzy, lightheaded at the time, but otherwise denies LOC, weakness, numbness, tingling, nausea, vomiting, headache, vision changes. Was standing in both instances. He denies goingto the hospital for these episodes, however made an appointment to see his PCP. He denies any changes to his routine or medications. He does reports occasionally stopping paroxetine due to side effects,but reports taking all other medications as prescribed. He reports feeling tired and drowsy constantly, which he feels may have been contributing. He endorses having a headache that was sore to the touch after some falls in the past. He endorses h/o concussion. Also endorses issues with swallowing food (intermittently gets stuck in throat) and drinking water -- feels like swallowing a baseball at times. He reports that he feels his voice has also changed -- more rough/hoarse. He also reports SOB, particularly in the setting of physical activity -- shoveling has been difficult this part season, as well as climbing stairs. Reduced overall exercise tolerance. In terms of DM control, his HbA1c is unknown at this time. He checks his blood sugar at home at least once a day. He reports numbers in the 120-160 range. He does not check his BP at home -- does not have a BP cuff to do this. He also endorses a h/o WILLIS. Is supposed to be using a CPAP machine, however states that his currentone is on recall and he is pending a new one. Also with h/o lung nodule requiring yearly surveillance. He reports having b/l CUS done approx 1 month ago, which was reportedly OK. No other testing besides ziopatch and MRI brain w/o contrast (see below) which were ordered by PCP. Prior surgeries: -- CAD w/ stenting x 3 -- R knee repair Denies current tobacco use. Denies current EtOH use. Quit both in 2001. Occasionally uses marijuanaat night to help sleep. No other toxic habits. He no longer works, currently on disability. 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 He currently lives at home with his brother. The rest of a neurologic review of systems is otherwise unremarkable. PMHx/PSHx: No past medical history on file. No past surgical history on file. Meds: Current Outpatient Medications on File Prior to Visit Medication Sig Dispense Refill aspirin 81 mg chewable tablet Take 81 mg by mouth daily. Trulicity 0.75 mg/0.5 mL Pen Injector 0.75 mg by abdominal subcutaneous route once a week. furosemide (Lasix) 20 mg tablet Take 20 mg by mouth daily. losartan (Cozaar) 25 mg tablet Take 1 tablet by mouth Daily at Noon. tamsulosin (Flomax) 0.4 mg capsule Take 1 capsule by mouth Daily at Noon. empagliflozin (JARDIANCE) 25 mg Tablet Take 25 mg by mouth daily. cholecalciferol, Vitamin D3, 1,000 unit Tablet Take by mouth daily. atorvastatin (LIPITOR) 80 mg Tablet Take 40 mg by mouth daily. metFORMIN (GLUCOPHAGE) 500 mg Tablet Take 1,000 mg by mouth 2 times daily (with meals). levothyroxine (SYNTHROID) 25 mcg Tablet Take 25 mcg by mouth daily. PARoxetine (PAXIL) 30 mg tablet Take 30 mg by mouth every morning. metoprolol tartrate (LOPRESSOR) 25 mg tablet Take 50 mg by mouth 2 times daily. Indications: hypertension nitroGLYcerin (NITROSTAT) 0.4 mg SL tablet 0.4mg, Sublingual, PRN gabapentin (NEURONTIN) 300 mg Capsule Take 300 mg by mouth daily. isosorbide dinitrate (ISORDIL) 30 mg Tablet Take 30 mg by mouth daily (after breakfast). omeprazole 20 mg Tablet, Delayed Release (E.C.) Take 20 mg by mouth. glipiZIDE (GLUCOTROL XL) 10 mg Tablet Extended Rel 24 hr Take 20 mg by mouth daily. aspirin 325 mg EC tablet Take 1 tablet by mouth daily. (Patient not taking: Reported on 11/22/2023) 30 tablet amlodipine (NORVASC) 10 mg tablet Take 10 mg by mouth daily. No current facility-administered medications on file prior to visit. Allergies: Allergies Allergen Reactions Codeine Nausea Only Isosorbide Other (See Comments) Faint, headaches Lisinopril Other (See Comments) - cough Family Hx: No family history on file. Social Hx: Social History Occupational History Not on file Tobacco Use Smoking status: Former Types: Cigarettes Quit date: 10/09/2010 Years since quittin.1 Smokeless tobacco: Never Substance and Sexual Activity Alcohol use: Not on file Drug use: Not on file Sexual activity: Not on file ROS: All 12 other systems were reviewed and are noncontributory aside from that noted in the HPI. Exam: Vitals: 11/22/23 0937 BP: 132/72 BP Location (NBP): Right arm Patient Position: Sitting BP Cuff Sizes: Large Adult (32-43 cm) Weight: 127.9 kg (282 lb) Height: 182.9 cm (6') General Exam: Appearance: Well-appearing, NAD. HEENT: NCAT. Unable to visualize fundi. Skin: No rash or obvious lesions on exposed skin. Body mass index is 38.25 kg/m??. Neuro Exam: Mental Status: Awake and alert. Attentive. AAOx3 (to person, place/location, and time/date). Speech crisp, clear, nonaphasic, and nondysarthric. Intact naming of high and low-frequency objects, repetition, and comprehension. Able to follow 3-step commands across the midline. Attends to both sides without obvious neglect. CN: II (optic), III (oculomotor), IV (trochlear), & (abducens) VFF, convergence insufficiency, otherwise EOMI, PERRL. No nystagmus, ptosis, gaze deviation, or skew. V (trigeminal) - V1, V2, V3 Intact to light touch in V1-V3 distributions bilaterally. Masseters symmetric bilaterally. VII (facial) Face symmetric. No abnormal lacrimation, salivation, or hyperacusis. VIII (vestibulocochlear) Hearing intact to voice. IX & X (glossopharyngeal & vagus) Symmetric elevation of the soft palate with speech. Uvulais midline. XI (spinal accessory) Shoulder shrug 5/5 bilaterally. XII (hypoglossal) Protrusion of the tongue is normal. Tongue midline. Motor: Good tone/bulk. No tremor or adventitious movements seen. No pronator drift or finger curl present. Finger tapping rapid b/l. Left Right Deltoid 5/5 5/5 Biceps 5/5 5/5 Triceps 5/5 5/5 Wrist flexion 5/5 5/5 Wrist extension 5/5 5/5 Finger flexion 5/5 5/5 Finger extension 5/5 5/5 Hip flexion 5/5 5/5 Knee flexion 5/5 5/5 Knee extension 5/5 5/5 Plantarflexion 5/5 5/5 Dorsiflexion 5/5 5/5 Sensory: Sensation intact to light touch bilaterally in the distal upper and lower extremities. Reflexes: Left Right Brachioradialis 2+ 2+ Biceps 2- 2- Triceps 1+ 1+ Patellar 2- 1+ Ankle 1+ 1+ Ankle clonus absent absent Plantar deferred deferred Schneider's negative positive Coordination/Gait: [id number] intact bilaterally. No dysmetria. Gait unremarkable. Labs/Data/Results: - No recent labs/data available. - Ziopatch (10 days, 19 hours, 55 min, 05/2023, OSH) --> No atrial fibrillation, no high grade blocks seen per report. Imaging: - MRI brain w/o contrast (06/18/23, OSH): 1. There is no evidence of acute territorial infract. 2.Findings consistent with chronic microvascular ischemic disease Assessment: Problem List Items Addressed This Visit None Visit Diagnoses TIA (transient ischemic attack) Relevant Orders MRI Angiogram Head wo Contrast (Generic) Echocardiogram Transthoracic Aphasia Relevant Orders Referral to Speech Therapy EEG 63 y.o. R-handed man with a history of CAD (3 stents here at [facility]), HLD, HTN, DMII (HbA1c unclear at this time), lumbar spinal stenosis, WILLIS on CPAP, and MDD referred to the [facility] neurology clinic forevaluation of transient neurological symptoms, specifically described as expressive dysphasia. Neurological examination normal and reassuring at this time. No recent prior labs/data available. ~ 11day Ziopatch without atrial fibrillation of high-grade blocks per report. MRI brain w/o contrast obtained at OSH in 05/2023 showed chronic microvascular ischemic disease per report. Impression: #Transient expressive aphasia, c/f TIA vs underlying seizure Recommendations: - BP control per PCP. - Will have office staff obtain outside MRI brain films and carotid ultrasound results for review. - C/w ASA 81mg daily. - LDL and HbA1c management per PCP. - Optimization of cardiac risk factors. - Will obtain GRAIN UNLOADER evaluation. - Will obtain TTE w/ bubble study. - Will obtain routine EEG for evaluation of background. - Patient expressed understanding of the above. All questions were answered. - RTC 3-4 months. Modifiable Risk Factors in Secondary Stroke Prevention Risk Factor Treatment Goals Hypertension Patients with hypertension: <140/90 mm Hg; 10-mm Hg reduction in systolic BP and 5-mm Hg reduction in diastolic BP from baseline Patients with diabetes mellitus or renal disease: <130/80 mm Hg; 10-mm Hg reduction in systolic BP and 5-mm Hg reduction in diastolic BP from baseline Patients without hypertension: <120/80 mm Hg; 10-mm Hg reduction in systolic BP and 5-mm Hg reduction in diastolic BP from baseline Dyslipidemia Atherosclerotic stroke or TIA: low-density lipoprotein (LDL) cholesterol level <70 mg/dl or 50% reduction in LDL cholesterol level from baseline Nonatherosclerotic stroke or TIA: per National Cholesterol Education Program (NCEP) Adult TreatmentPanel III (ATP-III) goals Diabetes Mellitus HgA1c level <7% Cigarette Smoking Complete cessation Alcohol Consumption Men: two or fewer drinks per day Non woman: one or fewer drinks per day Physical Activity At least 30 minutes of moderate intensity physical exercise 1- 3 times per week Diet Low-fat, low-sodium, and Mediterranean or Dietary Approaches to Stop Hypertension diets (diabetic diet when applicable) Obesity Goal body mass index of 18.5-25 kg/m2 Thank you for your referral and opportunity to participate in Elias's care. Patient Instructions - Please schedule and obtain echocardiogram prior to the next visit. - Please schedule and obtain speech pathology evaluation prior to the next visit. - Please schedule and obtain routine EEG prior to the next visit. - Please schedule and obtain MRA (angiogram) of the head prior the next visit. - Keep track of and monitor your symptoms moving forwards. - Follow-up with your PCP regarding sleep apnea. - Follow-up with your PCP. - Follow-up with eye care provider as instructed by your PCP. - Return to clinic for follow-up in 3 months. Modifiable Risk Factors in Secondary Stroke Prevention Risk Factor Treatment Goals Hypertension Patients with hypertension: <140/90 mm Hg; 10-mm Hg reduction in systolic BP and 5-mm Hg reduction in diastolic BP from baseline Patients with diabetes mellitus or renal disease: <130/80 mm Hg; 10-mm Hg reduction in systolic BP and 5-mm Hg reduction in diastolic BP from baseline Patients without hypertension: <120/80 mm Hg; 10-mm Hg reduction in systolic BP and 5-mm Hg reduction in diastolic BP from baseline Dyslipidemia Atherosclerotic stroke or TIA: low-density lipoprotein (LDL) cholesterol level <70 mg/dl or 50% reduction in LDL cholesterol level from baseline Nonatherosclerotic stroke or TIA: per National Cholesterol Education Program (NCEP) Adult TreatmentPanel III (ATP-III) goals Diabetes Mellitus HgA1c level <7% Cigarette Smoking Complete cessation Alcohol Consumption Men: two or fewer drinks per day Non woman: one or fewer drinks per day Physical Activity At least 30 minutes of moderate intensity physical exercise 1- 3 times per week Diet Low-fat, low-sodium, and Mediterranean or Dietary Approaches to Stop Hypertension diets (diabetic diet when applicable) Obesity Goal body mass index of 18.5-25 kg/m2 Elements of this note may have been dictated using voice recognition software. Please forgive any typos or word substitutions. I spent a total of 60 minutes on this [id number] encounter on the date of service. This included: [x] Preparing to see the patient, review of laboratory test results and medical record [] Independently interpreting neuroimaging or neurophysiological results [x] Obtaining and/or reviewing separately obtained history (eg, outside records, caregiver) [x] Counseling and educating the patient/family/caregiver [] Referring and communicating with other health childcare center director [x] Documenting clinical information in the electronic or other health record [] Care coordination Ronnie Jamil MD Retail Route Supervisor Department of Neurology [facility] [address] P F documented in this encounter Plan of Treatment Upcoming Encounters Date Type Department Care Team (Late st Contact Info) Description 03/11/2024 8:00 AM EDT Office [place] [phone] Ananya Torres, GRAIN UNLOADER 03/26/2024 9:00 AM EDT Appointment Non-Invasive [place] [address] Ronnie Jamil MD [address] [address] [place] [address] 03/26/2024 11:30 AM ED[place] [phone] Ronnie Jamil MD [address] [address] [place] [address] 03/26/2024 2:30 PM EDT Appointment [place] [address] 03/26/2024 4:30 PM EDT [place] [address] Ronnie Jamil MD [address] [place] [address] [place] [address] 04/01/2024 8:00 AM EDT Office [place] [address] Ananya Torres, GRAIN UNLOADER 04/15/2024 8:00 AM EDT Office [place] [address] Ananya Torres, GRAIN UNLOADER 04/29/2024 8:00 AM EDT Office [place] [address] Ananya Torres, GRAIN UNLOADER Scheduled Orders Name Type Priority Associated Diagnoses Order Schedule EEG Neurology Routine Aphasia Expected: 11/22/2023, Expires: 02/22/2024 MRI Angiogram Head wo Contrast (Generic) Imaging Routine TIA (transient ischemic attack) Expected: 11/22/2023, Expires: 04/21/2024 Echocardiogram Transthoracic Echocardiography Routine TIA (transient ischemic attack) Expected: 11/22/2023, Expires: 05/24/2024 Scheduled Referrals Name Type Priority Associated Diagnoses Orde r Schedule Referral to Speech Therapy Outpatient Referral Routine Aphasia Ordered: 11/22/2023 documented as of this encounter Visit Diagnoses Diagnosis TIA (transient ischemic attack) Unspecified transient cerebral ischemia Aphasia documented in this encounter Care Teams Property Loss Insurance Claim Adjuster Relationship Specialty Start Date End Date Андрей Coello MD [facility] [place] [address] PCP - General 12/05/16 documented as of this encounter
--- OUTSIDE RECORDS SUMMARY | 2024-03-05 10:40 | XMS_ITS | Encounter Summary ---
[place] [address] Care Team Providers Care Real Estate Services Coordinator Name Role Phone Андрей Coello MD Primary Care Provider Encounter Details Date Type Department Care Team (Latest Contact Info) Description 11/22/2023 Travel Social History Tobacco Use Types Packs/Day Years Used Date Smoking Tobacco: Former Cigarettes Q uit: 10/09/2010 Smokeless Tobacco: Never Sex and Gender Information Value Date Recorded Sex Assigned at Not on file Gender Identity Not on file Sexual Orientation Not on file documented as of this encounter Plan of Treatment Upcoming Encounters Date Type Department Care Team (Late st Contact Info) Description 03/11/2024 8:00 AM EDT Office [place] [address] Ananya Torres, UTILITY CLERK 03/26/2024 9:00 AM EDT Appointment Non-Invasive [place] [address] Ronnie Jamli MD [address] [place] [address] NEUROLOGY [place] [address] 03/26/2024 11:30 AM EDT [place] [address] Ronnie Jamil MD [address] [place] [address] NEUROLOGY [place] [address] 03/26/2024 2:30 PM EDT Appointment [place] [address] 03/26/2024 4:30 PM EDT Office [place] [address] Ronnie Jamil MD [address] [place] [address] NEUROLOGY [place] [address] 04/01/2024 8:00 AM EDT Office [place] [address] Ananya Torres, UTILITY CLERK 04/15/2024 8:00 AM EDT Office [place] [address] Ananya Torres, UTILITY CLERK 04/29/2024 8:00 AM EDT Office [place] [address] Ananya Torres, UTILITY CLERK documented as of this encounter Visit Diagnoses Not on filedocumented in this encounter Care Teams Real Estate Services Coordinator Relationship Specialty Start Date End Date Андрей Coello MD [address] [place] [address] [place] [address] PCP - General 12/05/16 documented as of this encounter
--- OUTSIDE RECORDS SUMMARY | 2024-03-05 10:40 | XMS_ITS | Encounter Summary ---
Author Organization Formerly [facility], Later [facility] Address [facility] [place] [address] Care Team Providers Care Associate Trainer Name Role Phone Андрей Coello MD Primary Care Provider Encounter Details Date Type Department Care Team (Late st Contact Info) Description 01/26/2017 11:30 AM EDT - 01/26/2017 12:30 PM EDT Surgery Relief Mate [facility] [place] [id number] Nataly Mcginnis MD [facility] [place] [address] CARDIAC CATHETERIZATION Social History Tobacco Use Types Packs/Day Years Used Date Smoking Tobacco: Former Cigarettes Q uit: 10/09/2010 Smokeless Tobacco: Never Sex and Gender Information Value Date Recorded Sex Assigned at Not on file Gender Identity Not on file Sexual Orientation Not on file documented as of this encounter Last Filed Vital Signs Vital Sign Reading Time Taken Comments Blood Pressure 133/64 01/26/2017 11:22 AM EDT Pulse 57 01/26/2017 11:22 AM EDT Temperature 36.1 ??C (97 ??F) 01/26/2017 11:22 AM EDT Respiratory Rate 18 01/26/2017 11:22 AM EDT Oxygen Saturation 98% 01/26/2017 11:22 AM EDT Inhaled Oxygen Concentration - - Weight 132.9 kg (293 lb) 01/26/2017 11:22 AM EDT Height 182.9 cm (6') 01/26/2017 11:22 AM EDT Body Mass Index 39.74 01/26/2017 11:22 AM EDT documented in this encounter Discharge Instructions * Discharge Instructions* Genia Goodman RN - 01/26/2017 3:45 PM EDT Radial Access for Heart Cath Activity If you are discharged the same day as your procedure, do not drive yourself home. Arrange to have another person drive. You may walk around when you get home, but keep your activity at a minimum until the morning. Try to avoid bending your wrist for the first 12-24 hours after the procedure to allow the artery to fully heal. Do not participate in active sports for 48 hours. Do not lift anything greater than 5 lbs. You may engage in sexual activity after 48 hours. Catheter Insertion Area Care Take the dressing off of the catheter insertion site the morning following the procedure. Leave thesite open to air. If the site is oozing you may cover it with a band aid. You may take a shower if you wish. Look for signs of infection over the next several days. It is uncommon to have any visible blood at the site, any obvious bleeding is abnormal. A bruise around the wrist or small lump under the skin is normal: they generally disappear in 3-5 days. Expect some mild tenderness over the area where the catheter was inserted. You will notice this after the local anesthetic (numbing medicine) wears off. This should improve during the 24-48 hours after the procedure. You may use acetaminophen (tylenol) if needed. Contact your doctor if the discomfort worsens. Problems to Watch for If there is bright red blood flowing from the catheter insertion area: *stop what you are doing *hold pressure steadily on the area for 15 minutes *call for help *if the bleeding does not stop in 15 minutes call 911 for an ambulance. If there is swelling with black and blue color at the catheter insertion site, there may be bleeding inside. Contact the doctor if there is any increase in size. Look at the insertion site for the first few days at home. Signs of infection are: *redness *swelling *yellow, white, green or brown foul smelling drainage. *increased soreness If you think there is an infection, take your temperature. Then call your doctor. The limb on the side where you had your catheterization should look and feel normal in color, sensation, and temperature. If your hand or fingers become cool, pale, blue or change color contact your doctor. If you are having numbness or tingling in your fingers or hand contact your doctor. If you feel faint or dizzy, lie down with your feet elevated. Have someone call the doctor. If you are alert, drink fluids. How to Deal with Chest Pain If you had only the cardiac catheterization, treat any angina or chest discomfort as instructed. Stop what you are doing, and sit or lie down. If prescribed, take nitroglycerin under your tongue. If the angina isn't relieved, take another nitroglycerin in 5 minutes. After another 5 minutes, a third nitroglycerin may be taken. If the angina isn't improved you should call for an ambulance to bring you to the nearest hospital emergency room. If your angina is more frequent or severe than before, contact your doctor. We usually would not expect you to have angina after an angioplasty. If you do get angina, treat itas you did before, but also contact your doctor. Return to Work The doctor will usually have told you when to return to work. If you do not perform heavy physical labor, most people can return to work in a few days. Diet Follow your previous diet unless otherwise instructed. Cardiac Risk Factor If you have coronary artery disease, it is important that you help control it by reducing your cardiac risk factors. If you smoke, we urge you to stop now. If you think this is going to be a problem,let us know so that we may help you. We have dieticians who can help you learn about a low fat, lowcholesterol diet. Cardiac rehabilitation programs can help you set up a regular exercise program. Work with your doctor if you have high blood pressure or sugar diabetes to keep these under control. Medications Take your usual medications medication changes If you are taking medications prescribed by your doctor, do not take any ylch-iwf-jzoorja medicinesor herbal preparations without first discussing this with your doctor or pharmacist. There is the possibility of side effects and interactions when these are combined. Follow Up Care Who to call with questions or problems If there are any questions or problems that you think might be related to your cardiac cath or angioplasty, contact the regional vice president life sales systems integration analyst by calling [facility] at . * Patient Instructions* Mirian Moctezuma MD - 01/26/2017 2:13 PM EDT Cardiology Instructions Call your doctor if: Chest pain, dyspnea, pain or swelling in legs occurs. If you have non-emergent questions between now and the time of your follow up appointments: -During 8am-5pm Sunday through Sunday call [phone] to speak with a nurse in the cardiology clinic -All other times call [phone] and ask to speak to the grounds and nursery specialist systems integration analyst. MEDICATIONS - you can restart your metformin on 01/28/17 - keep nitroglycerin with you at all times, if you have chest pain, can take 1 tablet under your tongue every 5 minutes up to 3 tablets. If your pain does not resolve you need to call [phone]. Return to usual actvities: 1 week, as tolerated. Do not lift anything greater than 1 gallon for milk for 1 week You can shower the day after your procedure, but don't take any tub baths or soak in pools for 1 week after your procedure. Driving: No driving for 48 hours after catheterization. Follow up Appointments: Primary care provider: Cardiology: Андрей Coello MD [phone] Follow up as planned or as needed. Dr. Toby Song Call to confirm follow-up documented in this encounter Medications at Time of Discharge Medication Sig Dispensed Refills Start Date End Date empagliflozin (JARDIANCE) 25 mg Tablet Take 25 [...] every morning. metoprolol tartrate (LOPRESSOR) 25 mg tabletIndications:hype rtension Take 50 mg by mouth 2 times daily. Indications: hypertension nitroGLYcerin (NITROSTAT) 0.4 mg SL tablet 0.4mg, Sublingual, PRN 05/15/2005 gabapentin (NEURONTIN) 300 mg Capsule Take 300 [...] tablet Take 1 tablet by mouth daily. 30 tablet 04/08/2011 amlodipine (NORVASC) 10 mg tablet Take 10 mg by mouth daily. documented as of this encounter Progress Notes * Genia Goodman RN - 01/26/2017 4:29 PM EDT Pt A+Ox4, VSS, tolerating Po intake. Pt completed bedrest and IVF per orders. AVS reviewed with Pt and he verbalized understanding and have no questions or concerns at this time. Pt ambulated and voided without difficulty. Pt D/C to home with daughter. documented in this encounter H&P Notes * Mirian Moctezuma MD - 01/26/2017 12:40 PM EDT Elias Pennington is a 56 y.o. male referred for cardiac catheterization by Dr Toby Song for evaluation of chest pain. He has known CAD with PCI to RCA in 2002, 2003 and 2010, with cardiac cath in 2012 revealing no obstructive CAD, DM2, HTN, HLD, WILLIS on sleep apnea, and ex tobacco use, who has been having exertional chest pain (class III). Nuclear cardiac stress test was negative for ischemia and revealed fixed defects in apical inferior and lateral caballero. Despite results of cardiac stress test, given symptoms, a more definitive evaluation by way of cardiac catheterization was recommended. He has taken his daily aspirin 81mg dose this morning. There have not been any changes in health status since last seen in clinic. No fevers, no chills, no bleeding. Outpatient Prescriptions Marked as Taking for the 01/26/17 encounter (Hospital Encounter) Medication Sig Dispense Refill ??? gabapentin (NEURONTIN) 300 mg Capsule Take 300 mg by mouth daily. ??? isosorbide dinitrate (ISORDIL) 30 mg Tablet Take 30 mg by mouth daily (after breakfast). ??? empagliflozin (JARDIANCE) 25 mg Tablet Take 25 mg by mouth daily. ??? omeprazole 20 mg Tablet, Delayed Release (E.C.) Take 20 mg by mouth. ??? cholecalciferol, Vitamin D3, 1,000 unit Tablet Take by mouth daily. ??? glipiZIDE (GLUCOTROL XL) 10 mg Tablet Extended Rel 24 hr Take 20 mg by mouth daily. ??? atorvastatin (LIPITOR) 80 mg Tablet Take 80 mg by mouth daily. ??? metFORMIN (GLUCOPHAGE) 500 mg Tablet Take 1,000 mg by mouth 2 times daily (with meals). ??? levothyroxine (SYNTHROID) 25 mcg Tablet Take 25 mcg by mouth daily. ??? PARoxetine (PAXIL) 30 mg tablet Take 30 mg by mouth every morning. ??? aspirin 325 mg EC tablet Take 1 tablet by mouth daily. 30 tablet ??? amlodipine (NORVASC) 10 mg tablet Take 10 mg by mouth daily. ??? metoprolol tartrate (LOPRESSOR) 25 mg tablet Take 50 mg by mouth 2 times daily. Indications: hypertension ??? nitroGLYcerin (NITROSTAT) 0.4 mg SL tablet 0.4mg, Sublingual, PRN BP 133/64 (BP Location (NBP): Left arm) Pulse 57 Temp 36.1 ??C (97 ??F) (Temporal) Resp 18 Ht 182.9 cm (6') Wt (!) 132.9 kg (293 lb) SpO2 98% BMI 39.74 kg/m2 PE NAD CV: RRR, S1 S2 physiologic, JVP estimated @ 7 cm H2O Pulm: CTAB, no w/r/r Abd: soft, NT, ND, +BS, no bruits Vasc: 2+ bilat radial with partially favorable Mehdi's test on the R, 2+ bilat femoral pulses (bodyhabitus does impact exam) Extr: wwp, trace bilateral lower extremity edema Labs reviewed and notable for: 01/17/17: CR 0.81, HGB 13.1, HCT 42.5, PLT 192 A/P 56 y.o. male here for cardiac catheterization. - proceed as planned - consent signed - no obvious CI to DAPT - FULL code Mirian Moctezuma MD documented in this encounter Plan of Treatment Upcoming Encounters Date Type Department Care Team (Late st Contact Info) Description 03/11/2024 8:00 AM EDT Office Visit [place] [address] Ananya Torres, ASSISTANT MANAGER AIRSIDE OPERATIONS 03/26/2024 9:00 AM EDT Appointment Non[place] [address] Ronnie Jamil MD [address] [address] [place] [address] 03/26/2024 11:30 AM EDT [place] [address] Ronnie Jamil MD [address] [address] [place] [address] 03/26/2024 2:30 PM EDT Appointment [place] [address] 03/26/2024 4:30 PM EDT Office [place] [address] Ronnie Jamil MD [address] [address] [place] [address] 04/01/2024 8:00 AM EDT Office Visit [place] [address] Ananya Torres, ASSISTANT MANAGER AIRSIDE OPERATIONS 04/15/2024 8:00 AM EDT Office [place] [address] Ananya Torres, ASSISTANT MANAGER AIRSIDE OPERATIONS 04/29/2024 8:00 AM EDT Office [place] [address] Ananya Torres, ASSISTANT MANAGER AIRSIDE OPERATIONS documented as of this encounter Procedures Procedure Name Priority Date/Time Associated Diagnosis Comments POCT GLUCOSE Routine 01/26/2017 3:38 PM EDT EKG 12-LEAD Routine 01/26/2017 11:58 AM EDT ASCVD (arteriosclerotic cardiovascular disease) POCT GLUCOSE Routine 01/26/2017 11:28 AM EDT documented in this encounter Results * POCT Glucose (01/26/2017 3:38 PM EDT) [facility] Glucose, POC 145 65 - 199 mg/dL [facility] Comment: Supplemental ranges: <140 mg/dL before meals <180 mg/dL all other times of the day Blood specimen (specimen) 01/26/2017 3:38 PM EDT 01/26/2017 3:38 PM EDT Nataly Mcginnis MD POINT OF CARE TEST O RDERABLES [facility] [place] [place] [address] * EKG 12 Lead (01/26/2017 11:58 AM EDT) Pathologist [facility] Ventricular rate 52 BPM MUSE SYSTEM Atrial Rate 52 BPM MUSE SYSTEM P-R Interval 184 ms MUSE SYSTEM QRS Duration 98 ms MUSE SYSTEM Q-T Interval 436 ms MUSE SYSTEM QTC Calculated (Bezet) 405 ms MUSE SYSTEM Calculated P Weston 45 degrees MUSE SYSTEM Calculated R Weston 6 degrees MUSE SYSTEM Calculated T Weston 23 degrees MUSE SYSTEM INTERPRETATION Sinus bradycardia Otherwise normal ECG When compared with ECG of 10-JUN-2013 10:41, Vent. rate has decreased BY ??27 BPM Confirmed by MD ANDER, JOHNNY ([id number]) on 01/26/2017 4:07:53 PM MUSE SYSTEM 01/26/2017 11:5 8 AM EDT 01/26/2017 4:07 PM EDT Nataly Mcginnis MD ECG ORDERABLES MUSE SYSTEM * POCT Glucose (01/26/2017 11:28 AM EDT) Glucose, POC 122 65 - 199 mg/dL [facility] Comment: Supplemental ranges: <140 mg/dL before meals <180 mg/dL all other times of the day Blood specimen (specimen) 01/26/2017 11:28 AM EDT 01/26/2017 11:28 AM EDT Nataly Mcginnis MD POINT OF CARE TEST O RDERABLES Performing Organization Address City/[facility]/ZIP Co de Phone Number [facility] [place] [address] documented in this encounter Visit Diagnoses Diagnosis ASCVD (arteriosclerotic cardiovascular disease) Unspecified cardiovascular disease ASCVD (arteriosclerotic cardiovascular disease) Unspecified cardiovascular disease documented in this encounter Administered Medications Inactive Administered Medications - up to 3 most recent administrations Medication Order MAR Action Action Date Dose Rate Site acetaminophen (TYLENOL) tablet 650 mg 650 mg, Oral, EVERY 6 HOURS PRN, Starting on Sun01/26/17 at 1424, Until Sun01/26/17 at 1832, Pain, For Mild Pain, Maximum dose of acetaminophen is 4000 mg from all sources in 24 hours., Recovery (Recovery-Hospital Unit), Routine fentaNYL 50 mcg/mL multi-dose injection ONCE PRN, Starting on Sun01/26/17 at 1345, Until Sun01/26/17 at 1627, Intra-Operative (Intra-Procedure), Routine Given 01/26/2017 1:45 PM EDT 50 mcg heparin (porcine) injection ONCE PRN, Starting on Sun01/26/17 at 1352, Until Sun01/26/17 at 1627, Cath (Intra-Procedure), Routine Given 01/26/2017 1:52 PM EDT 7,000 Units iohexol (OMNIPAQUE) 350 mg/mL solution ONCE PRN, Starting on Sun01/26/17 at 1405, Until Sun01/26/17 at 1627, Cath (Intra-Procedure), Routine Given 01/26/2017 2:05 PM EDT 36 mLs midazolam (PF) (VERSED) 1 mg/mL multi-dose injection ONCE PRN, Starting on Sun01/26/17 at 1345, Until Sun01/26/17 at 1627, Cath (Intra-Procedure), Routine Given 01/26/2017 1:45 PM EDT 1 mg nitroGLYcerin 100 mcg/mL intracoronary dilution ONCE PRN, Starting on Sun01/26/17 at 1350, Until Sun01/26/17 at 1627, Cath (Intra-Procedure), Routine Given 01/26/2017 1:50 PM EDT 200 mcg sodium chloride 0.9% infusion 100 mL/hr, Intravenous, CONTINUOUS, Starting on Sun01/26/17 at 1445, Until Sun01/26/17 at 1544, Recovery (Recovery-Hospital Unit) Continued Bag 01/26/2017 2:25 PM EDT 100 mL/hr 100 mL/hr documented in this encounter Active and Recently Administered Medications Times are shown in EDT. Continuous Medication Order 01/24/2017 01/25/2017 01/26/2017 sodium chloride 0.9% infusion 100 mL/hr, Intravenous, CONTINUOUS, Starting on Sun01/26/17 at 1445, Until Sun01/26/17 at 1544, Recovery (Recovery-Hospital Unit) 1425 (Continued Bag - Provider: Marisela Leach RN) PRN Medication Order 01/24/2017 01/25/2017 01/26/2017 acetaminophen (TYLENOL) tablet 650 mg 650 mg, Oral, EVERY 6 HOURS PRN, Starting on Sun01/26/17 at 1424, Until Sun01/26/17 at 1832, Pain, For Mild Pain, Maximum dose of acetaminophen is 4000 mg from all sources in 24 hours., Recovery (Recovery-Hospital Unit), Routine fentaNYL 50 mcg/mL multi-dose injection (CANCELED) ONCE PRN, Starting on Sun01/26/17 at 1345, Until Sun01/26/17 at 1627, Intra-Operative (Intra-Procedure), Routine 1345 (Given - Provid er: Tiana Durand RN) heparin (porcine) injection (CANCELED) ONCE PRN, Starting on Sun01/26/17 at 1352, Until Sun01/26/17 at 1627, Cath (Intra-Procedure), Routine 1352 (Given - Provid er: Tiana Durand RN) iohexol (OMNIPAQUE) 350 mg/mL solution (CANCELED) ONCE PRN, Starting on Sun01/26/17 at 1405, Until Sun01/26/17 at 1627, Cath (Intra-Procedure), Routine 1405 (Given - Provid er: Mirian Moctezuma MD) midazolam (PF) (VERSED) 1 mg/mL multi-dose injection (CANCELED) ONCE PRN, Starting on Sun01/26/17 at 1345, Until Sun01/26/17 at 1627, Cath (Intra-Procedure), Routine 1345 (Given - Provid er: Tiana Durand RN) nitroGLYcerin 100 mcg/mL intracoronary dilution (CANCELED) ONCE PRN, Starting on Sun01/26/17 at 1350, Until Sun01/26/17 at 1627, Cath (Intra-Procedure), Routine 1350 (Given - Provid er: Mirian Moctezuma MD) documented in this encounter Care Teams Associate Trainer Relationship Specialty Start Date End Date Андрей Coello MD [address] [place] [address] PCP - General 12/05/16 documented as of this encounter
--- OUTSIDE RECORDS SUMMARY | 2024-03-05 10:40 | XMS_ITS | Encounter Summary ---
Author Organization [facility] Address [facility] [place] [address] Care Team Providers Care Service Or Work Dispatcher Chief Name Role Phone Андрей Coello MD Primary Care Provider [phone] Encounter Details Date Type Department Care Team (Latest Contact Info) Description 10/19/2020 7:47 AM EDT - 10/19/2020 5:25 PM EDT Hospital Encounter [place] [phone] Earnest Aguilera MD [facility] [place] [address] Abnormal stress test; Abnormal stress test Discharge Disposition: Home Social History Tobacco Use Types Packs/Day Years Used Date Smoking Tobacco: Former Cigarettes Q uit: 10/09/2010 Smokeless Tobacco: Never Sex and Gender Information Value Date Recorded Sex Assigned at Not on file Gender Identity Not on file Sexual Orientation Not on file documented as of this encounter Last Filed Vital Signs Vital Sign Reading Time Taken Comments Blood Pressure 158/78 10/19/2020 5:00 PM EDT Pulse 67 10/19/2020 4:27 PM EDT Temperature 36.7 ??C (98.1 ??F) 10/19/2020 4:27 PM ED T Respiratory Rate 16 10/19/2020 4:45 PM EDT Oxygen Saturation 96% 10/19/2020 5:00 PM EDT Inhaled Oxygen Concentration - - Weight 135.4 kg (298 lb 9.6 oz) 021 12:22 PM EDT Height 182.9 cm (6') 10/19/2020 12:22 PM EDT Body Mass Index 40.5 10/19/2020 12:22 PM EDT documented in this encounter Discharge Instructions * Discharge Instructions* Michael Honeycutt, RN - 10/19/2020 4:56 PM EDT Activity If you are discharged the same day as your procedure, do not drive yourself home. Arrange to have another person drive. You may walk around when you get home, but keep your activity at a minimum until the morning. Do not bend over, strain, or lift heavy objects for 24 hours after the procedure. Do not participate in active sports for 48 hours. You may engage in sexual activity after 48 hours. These restrictions will not apply if the catheter was placed in a blood vessel in your arm. Catheter Insertion Area Care Take the band-aid off the catheter insertion area the morning following the procedure. You may takea shower if you wish. Wash the area with soap and water. Look for signs of infection over the next several days. A little spot of blood at the catheter insertion area is not unusual. A bruise or small lump under the skin is normal; they generally disappear in 3-4 days. For the first several days at home if you cough or sneeze, hold your groin to help prevent bleeding. Expect some mild tenderness over the area where the catheter was inserted. You will notice this after the local anesthetic (numbing medicine) wears off. This should improve during the 24-48 hours after the procedure. Take tylenol if needed. Contact your doctor if the discomfort worsens. Problems to Watch For If there is bright red blood flowing from the catheter insertion area: *stop what you are doing and lie down *Hold pressure steadily on the area for 15 minutes *Call for Help *If the bleeding does not stop in 15 minutes call 911 for an ambulance. If there is swelling with black and blue color at the catheter insertion area, there may be bleeding inside. Contact the doctor if there is any increase in size. Look at the insertion site for the first few days at home. Signs of infection are: *redness *Swelling *Yellow, white, green or brown foul smelling drainage. *increased soreness If you think there is an infection, take your temperature. Then call your doctor. The limb on the side where you had your catheterization should look and feel normal in its color, sensation, and temperature. If your leg becomes cool, pale, blue or changing color with numbness and tingling, contact your doctor. If you feel faint or dizzy, lie down with your feet elevated. Have someone call the doctor. If you are alert, drink fluids. How to Deal with Chest pain If you had only the cardiac catheterization, treat any angina or chest discomfort as instructed. Stop what you are doing, and sit or lie down. If prescribed, take nitroglycerin under your tongue. If the angina isn't relieved, take another nitroglycerine in 5 minutes. After another 5 minutes, a third nitroglycerine may be taken. If the angina isn't improved you should call for an ambulance to bring you to the nearest hospital emergency room. If your angina is more frequent or more sever than before, contact your doctor. We usually would not expect to have angina after an angioplasty. If you do get angina, treat it as you did before but also contact your doctor. Return to Work The doctor will usually have told you when to return to work. If you do not perform heavy physical labor, most people can return to work in a few days. Diet Follow your previous diet unless otherwise instructed. Cardiac Risk Factors If you have coronary artery disease, it is important that you help control it by reducing your cardiac risk factors. If you smoke, we urge you to stop now. If you think this is going to be a problem,let us know so that we may help you. We have dieticians who can help you learn about low fat, low cholesterol diet. Cardiac rehabilitation programs can help you set up a regular exercise program. Work with your doctor if you have high blood pressure or sugar diabetes to keep these under control. Medications ____Take your usual medications ____Medication changes: If you are taking medicines prescribed by your doctor, do not take any ywwd-heg-sygnfkc medicines or herbal preparations without first discussing this with your doctor or pharmacist. There is the possibility of side effect and interactions when these are combined. Follow up Care Who to Call with Questions or Problems If there are any questions or problems that you think might be related to your cardiac cath or angioplasty, contact the technical intern building construction contractor by calling [facility] at . documented in this encounter Medications at Time [...] mouth daily. documented as of this encounter H&P Notes * Rusty Zaragoza Ferny - 10/19/2020 1:11 PM EDT Patient Name: Elias Pennington Patient Age: 60 y.o. Birthdate: 1960 Admit date: 10/19/2020 Attending Physician: Earnest Aguilera MD Elias Pennington is a 60 y.o. male referred for cardiac catheterization by Dr. Silvestre for evaluation oftypical angina and positive stress test. Mr. Pennington is 60yo man with a PMH significant for CAD s/p multiple PCIs to the RCA (most recently in 2010) and cath in 2017 with non-obstructive disease, HTN, HLD, and T2DM who has been having increasing chest pressure with exertion. He underwent a nuclear stress test which showed apical ischemia, though there was some question of whether artifact could havebeen involved given body habitus and area of ischemia. He presents now for coronary angiography andpotential PCI. There have not been any changes in health status since last seen in clinic. No fevers, no chills, no bleeding. Outpatient Medications Marked as Taking for the 10/19/20 encounter (Hospital Encounter) Medication Sig Dispense Refill ??? isosorbide dinitrate (ISORDIL) 30 mg Tablet Take 30 mg by mouth daily (after breakfast). ??? empagliflozin (JARDIANCE) 25 mg Tablet Take 25 mg by mouth daily. ??? cholecalciferol, Vitamin D3, 1,000 unit Tablet [...] mg SL tablet 0.4mg, Sublingual, PRN BP 179/66 (BP Location (NBP): Right arm) Pulse 70 Temp 37.2 ??C (99 ??F) (Temporal) Resp 18 Ht 182.9 cm (6') Wt 135.4 kg (298 lb 9.6 oz) SpO2 97% BMI 40.50 kg/m?? Gen: Alert, comfortable appearing in NAD HEENT: EOMI, MMM Neck: Supple, no JVD CV: RRR, no M/R/G appreciated, normal S1/S2, PMI not palpated Resp: CTAB, no W/R/R Abd: Soft, NT/ND, +BS Ext: No edema, clubbing, or cyanosis. Warm and well perfused. Neuro: CN grossly intact, moving all extremities Psych: Appropriate affect Labs reviewed and notable for: Lab Results Component Value Date WBC 7.1 10/19/2020 HGB 14.4 10/19/2020 HCT 43.9 10/19/2020 MCV 85.9 10/19/2020 PLATELET 167 10/19/2020 Lab Results Component Value Date CREATININE 0.73 (L) 10/19/2020 BUN 14 10/19/2020 NA 136 10/19/2020 K 4.3 10/19/2020 CL 101 10/19/2020 CO2 23 10/19/2020 A/P 60 y.o. male here for cardiac catheterization for coronary angiography and potential PCI. Will proceed with cath as planned. - proceed as planned - consent signed - FULL code -12-Lead ECG reviewed I have personally discussed the procedure, including benefits and risks, with the patient who agrees to proceed. The indications for the catheterization, the expected benefits, and the possible riskswere reviewed in detail with the patient. The potential for , heart attack, stroke, kidney failure, bleeding, allergic reaction, vascular complications and infection were reviewed. The possibility of stenting and other percutaneous interventions, with associated risk, was reviewed. The potential need for emergent coronary artery bypass surgery was reviewed. Alternatives were discussed and the patient's questions were answered in full. Following this discussion, the patient consented to theprocedure and signed a form attesting to this, which is in the chart Rusty Zaragoza MD General Cardiology 10/19/20 1:11 PM Associated attestation - Earnest Aguilera MD - 10/19/2020 3:35 PM EDT Images from the original note were not included. I have seen the patient and reviewed the above history/examination and I agree with the details as written. I have personally reviewed all available ECG tracings, echo images and prior cath films. The assessment and plan were formulated in discussion with me and I agree with them as documented. Earnest Aguilera MD 10/19/2020 3:35 PM documented in this encounter Plan of Treatment Upcoming Encounters Date Type Department Care Team (Late st Contact Info) Description 03/11/2024 8:00 AM EDT Office [place] [address] Ananya Torres, GLASS CLEANER 03/26/2024 9:00 AM EDT Appointment Non-Invasive Cardiology [place] [facility] [place] [address] Ronnie Jamil MD [address] [address] [place] [address] 03/26/2024 11:30 AM EDT Appointment [place] [facility] [place] [address] Ronnie Jamil MD [address] [address] [place] [address] 03/26/2024 2:30 PM EDT Appointment [place] [address] 03/26/2024 4:30 PM EDT Office Visit [place]rology [place] [facility] [place] [address] Ronnie Jamil MD [address] [address] [place] [address] 04/01/2024 8:00 AM EDT Office [place] [address] Ananya Torres, GLASS CLEANER 04/15/2024 8:00 AM EDT Office Visit Speech [place] [facility] [place] [address] Ananya Torres, GLASS CLEANER 04/29/2024 8:00 AM EDT Office Visit [place] [facility] [place] [address] Ananya Torres, GLASS CLEANER documented as of this encounter Procedures Procedure Name Priority Date/Time Associated Diagnosis Comments POCT GLUCOSE Routine 10/19/2020 4:40 PM EDT POCT GLUCOSE Routine 10/19/2020 2:38 PM EDT CARDIAC CATHETERIZATION Routine 10/20/19 2:14 PM EDT Abnormal stress test EKG 12-LEAD Routine 10/19/2020 12:39 PM EDT Abnormal stress test POCT GLUCOSE Routine 10/19/2020 12:25 PM EDT HC VENIPUNCTURE STAT 10/19/2020 8:18 AM EDT HEMOGRAM STAT 10/19/2020 8:18 AM EDT DIFFERENTIAL, AUTOMATED STAT 10/20/19 8:18 AM EDT HC CBC,PLT & AUTO DIFF STAT 8:18 AM EDT documented in this encounter Results * POCT Glucose (10/19/2020 4:40 PM EDT) Glucose, POC 98 65 - 199 mg/dL [facility] Comment: Supplemental ranges: <140 mg/dL before meals <180 mg/dL all other times of the day Blood specimen (specimen) 10/19/2020 4:40 PM EDT 10/19/2020 4:40 PM EDT Earnest Aguilera MD POINT OF CARE TEST O RDERABLES [facility] [place] [address] * POCT Glucose (10/19/2020 2:38 PM EDT) Glucose, POC 110 65 - 199 mg/dL [facility] Comment: Supplemental ranges: <140 mg/dL before meals <180 mg/dL all other times of the day Blood specimen (specimen) 10/19/2020 2:38 PM EDT 10/19/2020 2:38 PM EDT Earnest Aguilera MD POINT OF CARE TEST O RDERABLES Performing Organization Address [facility] Co de Phone Number [facility] [place] [address] * CARDIAC CATHETERIZATION (10/19/2020 2:14 PM EDT) Anatomical Region Laterality Modality Other Narrative 10/20/2020 2:29 AM EDT ?[facility] ? Cardiac Catheterization/Intervention Report ? Patient Name: Elias Pennington A. ? Procedure Date: 10/19/2020 ? A #: [id number] ? Primary Physician: Earnest Aguilera ? Case #: [id number] ? File Name: [id number] ? Catheterization Order Number: [id number] ? [facility] ? Final Report [place], [place] ? Patient Name: ? Elias Pennington ?ID#: ?[id number] ? : ?1960 ? Procedure Date: ? October 19, 2020 ? Case #: ? [id number] ? Room: ? 2 ? Case Physician: ? Earnest Aguilera M.D. ? Start: ?13:54 ?Fellow: ? Rusty Zaragoza M.D. ?Admission: ??10/19/2020 ? Referring ? Venancio Silvestre M.D. ? Physicians: ?Андрей Coello M.D. ? Procedures: ?* Coronary Angiography ?* Left Heart Catheterization ? History ?Elias Pennington is a 60 year old man. He has hypertension, a family history ?of coronary artery disease and morbid obesity. The patient's smoking ?status is Former. He has hypercholesterolemia managed with lipid therapy. ?The patient has diabetes managed with oral medication. He has a prior ?history of coronary artery disease. The patient had a remote coronary ?intervention procedure. Prior to the initiation of this procedure, the ?patient was designated as ASA Class III. The [facility] clinical frailty scale ?is 3: Managing Well. ? Diagnostic Tests: ?Prior Coronary Angiography: ? Prior coronary angiography was performed on 01/27/2017 and showed ? non-obstructive CAD. ?Electrocardiography: ? EKG was assessed by ECG. EKG was Normal. ?Stress or Imaging Studies: ? A stress test with SPECT imaging was performed on 10/12/2020 and was ? Positive with Intermediate results. ?Medications Prior to Procedure: ? Aspirin, Calcium Channel Blocking Agent, Long Acting Nitrate and ? Statin. ? Indications for Diagnostic Cath: ?The priority of the diagnostic procedure was Elective. The indication for ?the wastewater analyst lab analyst visit is worsening angina. Chest pain symptom assessment ?was: Typical Angina. ? Technique: ?A 6 SLFr sheath was inserted in the right radial artery utilizing the ?Seldinger technique. The left coronary artery was injected utilizing a ?5Fr TIG 4.0 catheter. A 5Fr TIG 4.0 catheter was used to inject the right ?coronary artery. Left ventricular pressure was performed with a 5Fr TIG ?4.0 catheter. 5,000 units of heparin were administered. A total of 100cc ?of Omnipaque were opened, 55cc of Omnipaque were administered and 45cc of ?Omnipaque were wasted. Radiation: Fluoro time was 3.0 minutes, dose area ?product was 73,356 mGYcm2 and air kerma was 1,241 mGY. See the case log ?for additional details. ?The patient received the following medications prior to and during the ?procedure: ? Unfractionated Heparin. ? Hemodynamics: ?Left Heart Pressures ? Resting: ? Syst Diast ? EDP ?a ?v ? m ?Ao 135 ?? 69 ?93 ?LV 146 ? 22 ? Coronary Angiography: ?Dominance: Right ?Left Main ? There was mild diffuse (<=25% stenosis) disease of the entire vessel ? segment of the left main artery. ?Left Anterior Descending ? There was mild diffuse (<=25% stenosis) disease of the entire vessel ? segment of the left anterior descending artery (LAD). ?Left Circumflex ? There was mild diffuse (<=25% stenosis) disease of the entire vessel ? segment of the left circumflex artery (LCX). ?Right Coronary Artery ? There was mild diffuse (<=25% stenosis) disease of the entire vessel ? segment of the right coronary artery (RCA). ??The previously placed ? stent is patent. ? Vascular Access: ?Vascular Access Management: ? Mechanical Compression of the right radial artery access site was ? performed. ? Conclusions: ?* Nonobstructive coronary artery disease ?* Elevated left ventricular end diastolic pressure ?* No change in anatomy from 2017. ? Complications/Events: ?The patient had no complications during these procedures. ?The attending physician was present for the entire procedure. ?Dr. Earnest Aguilera M.D. was present during the moderate sedation ?intraservice time as documented by the sedation nurse. ??Case time = 00:10. ?Dr. Earnest Aguilera M.D. performed the coronary angiography and left ?heart catheterization. ? Earnest S Ale, M.D. ? Electronically Signed by: Earnest Aguilera M.D. ? Report Finalized: 10/19/2020 ??14:29 ? Procedure Note Earnest Aguilera MD - 10/20/2020 [facility] Cardiac Catheterization/Intervention Report Patient Name: Elias Pennington Procedure Date: 10/19/2020 A #: [id number] Primary Physician: Earnest Aguilera Case #: [id number] File Name: [id number] Catheterization Order Number: [id number] [facility] FinalReport [place], [place] Patient Name: Elias Pennington ID#:[id number] :1960 Procedure Date: October 19, 2020 Case #: [id number] Room: 2 Case Physician: Earnest Aguilera M.D. Start: 13:54 Fellow: Rusty Zaragoza M.D. Admission:10/19/2020 Referring Venancio Silvestre M.D. Physicians: Андрей Coello M.D. Procedures: * Coronary Angiography * Left Heart Catheterization History Elias Pennington is a 60 year old man. He has hypertension, a familyhistory of coronary artery disease and morbid obesity. The patient's smoking status is Former. He has hypercholesterolemia managed with lipidtherapy. The patient has diabetes managed with oral medication. He has aprior history of coronary artery disease. The patient had a remotecoronary intervention procedure. Prior to the initiation of this procedure,the patient was designated as ASA Class III. The [facility] clinical frailtyscale is 3: Managing Well. Diagnostic Tests: Prior Coronary Angiography: Prior coronary angiography was performed on 01/27/2017 andshowed non-obstructive CAD. Electrocardiography: EKG was assessed by ECG. EKG was Normal. Stress or Imaging Studies: A stress test with SPECT imaging was performed on 10/12/2020nd was Positive with Intermediate results. Medications Prior to Procedure: Aspirin, Calcium Channel Blocking Agent, Long Acting Nitrateand Statin. Indications for Diagnostic Cath: The priority of the diagnostic procedure was Elective. Theindication for the wastewater analyst lab analyst visit is worsening angina. Chest pain symptomassessment was: Typical Angina. Technique: A 6 SLFr sheath was inserted in the right radial artery utilizingthe Seldinger technique. The left coronary artery was injected utilizinga 5Fr TIG 4.0 catheter. A 5Fr TIG 4.0 catheter was used to inject theright coronary artery. Left ventricular pressure was performed with a 5FrTIG 4.0 catheter. 5,000 units of heparin were administered. A total bv341ic of Omnipaque were opened, 55cc of Omnipaque were administered kev68th of Omnipaque were wasted. Radiation: Fluoro time was 3.0 minutes, dosearea product was 73,356 mGYcm2 and air kerma was 1,241 mGY. See the caselog for additional details. The patient received the following medications prior to and duringthe procedure: Unfractionated Heparin. Hemodynamics: Left Heart Pressures Resting: Syst Diast EDP a v m Ao 135 69 93 LV 146 22 Coronary Angiography: Dominance: Right Left Main There was mild diffuse (<=25% stenosis) disease of the entirevessel segment of the left main artery. Left Anterior Descending There was mild diffuse (<=25% stenosis) disease of the entirevessel segment of the left anterior descending artery (LAD). Left Circumflex There was mild diffuse (<=25% stenosis) disease of the entirevessel segment of the left circumflex artery (LCX). Right Coronary Artery There was mild diffuse (<=25% stenosis) disease of the entirevessel segment of the right coronary artery (RCA). The previouslyplaced stent is patent. Vascular Access: Vascular Access Management: Mechanical Compression of the right radial artery access sitewas performed. Conclusions: * Nonobstructive coronary artery disease * Elevated left ventricular end diastolic pressure * No change in anatomy from 2017. Complications/Events: The patient had no complications during these procedures. The attending physician was present for the entire procedure. Dr. Earnest Aguilera M.D. was present during the moderate sedation intraservice time as documented by the sedation nurse. Case time =00:10. Dr. Earnest Aguilera M.D. performed the coronary angiography and left heart catheterization. Earnest Aguilera M.D. Electronically Signed by: Earnest Aguilera M.D. Report Finalized: 10/19/2020 14:29 Earnest Aguilera MD CARDIAC CATH ORDERAB LES * EKG 12 Lead (10/19/2020 12:39 PM EDT) Ventricular rate 66 BPM MUSE SYSTEM Atrial Rate 66 BPM MUSE SYSTEM P-R Interval 194 ms MUSE SYSTEM QRS Duration 88 ms MUSE SYSTEM Q-T Interval 406 ms MUSE SYSTEM QTC Calculated (Bezet) 425 ms MUSE SYSTEM Calculated P [place] 54 degrees MUSE SYSTEM Calculated R [place] 7 degrees MUSE SYSTEM Calculated T [place] 21 degrees MUSE SYSTEM INTERPRETATION Normal sinus rhythm Normal ECG When compared with ECG of 26-JAN-2017 11:58, No significant change was found Confirmed by MD Tejas, Dandy Hidalgo ([id number]) on 10/19/2020 1:38:12 PM MUSE SYSTEM 10/19/2020 12:3 9 PM EDT 10/19/2020 1:38 PM EDT Earnest Aguilera MD ECG ORDERABLES MUSE SYSTEM * POCT Glucose (10/19/2020 12:25 PM EDT) Pathologist [facility] Glucose, POC 114 65 - 199 mg/dL [facility] Comment: Supplemental ranges: <140 mg/dL before meals <180 mg/dL all other times of the day Blood specimen (specimen) 10/19/2020 12:25 PM EDT 10/19/2020 12:25 PM EDT Earnest Aguilera MD POINT OF CARE TEST O RDERABLES Performing Organization Address City/[facility]/ZIP Co de Phone Number [facility] [place] [address] * Differential, Automated (10/19/2020 8:18 AM EDT) [facility] Neutrophil % 70.1 % [facility] Neutrophil Absolute 4.98 1.70 - 6.10 x10(3)/[facility] Lymph % 21.5 % [facility] Lymphocytes Abs 1.5 0.9 - 3.2 x10(3)/[facility] Monocyte % 6.0 % [facility] Monocyte Abs 0.4 0.3 - 0.9 x10(3)/[facility] Eos % 1.3 % [facility] Eosinophils Abs 0.1 0.0 - 0.4 x10(3)/[facility] Basophil % 0.7 % [facility] Baso Absolute 0.0 0.0 - 0.1 x10(3)/[facility] Immature Gran % 0.40 % [facility] Comment: Immature granulocytes(IG's)percentage and absolute count will include metamyelocytes, myelocytes, and promyelocytes. Blood smears from CBCs yielding IG's will be scanned manually for concordance. If this scan disagrees with the automated IG or if promyelocytes are noted, a manual differential will be performed. Immature Gran Absolute 0.03 0.00 - 0.04 x10(3)/[facility] Blood specimen (specimen) 10/19/2020 8:18 AM EDT 10/19/2020 8:26 AM EDT Narrative Resulting Agency Comment Spec In Lab Ramakrishna MODI HEMATOLOGY ORDERABLE S [facility] [place] [address] * Hemogram (10/19/2020 8:18 AM EDT) White Blood Cell 7.1 4.0 - 9.5 x10(3)/[facility] LAB[facility]ATORY Red Blood Cell 5.11 4.58 - 5.54 x10(6)/[facility] Hemoglobin 14.4 13.7 - 16.5 gm/dL [facility] Hematocrit 43.9 40.5 - 48.5 % [facility] Mean Cell Volume 85.9 82.9 - 93.1 fL [facility] Mean Cell Hemoglobin 28.2 27.5 - 32.1 pg [facility] Mean Cell Hemoglobin Concentration 32.8 32.0 - 35.7 gm/dL [facility] Platelet 167 145 - 357 x10(3)/[facility]ATORY RDW Standard Deviation 41.8 36.0 - 45.0 [facility] LABORATORY RDW coefficient of variation 13.3 11.4 - 13.8 % [facility] Mean Platelet Volume 10.6 7.6 - 12.9 fL [facility] NRBC% auto 0.0 % [facility]ORY NRBC Absolute 0.000 0.000 - 0.000 x10(3)/mcL [facility] Blood specimen (specimen) 10/19/2020 8:18 AM EDT 10/19/2020 8:26 AM EDT Narrative Resulting Agency Comment Spec In Lab Ramakrishna MODI HEMATOLOGY ORDERABLE S [facility] [place] [address] * (ABNORMAL) BMP w/fasting Glucose (10/19/2020 8:18 AM EDT) Glucose Fasting 164(H) 65 - 99 mg/dL [facility] Comment: ?Fasting* Glucose Interpretive Criteria Normal ?65-99 mg/dL Impaired Fasting glucose ?100-125 mg/dL Consistent with Diabetes Mellitus ? >or= 126 mg/dL *Fasting is defined as no caloric intake for at least 8 hours In the absence of unequivocal hyperglycemia a plasma glucose value of >or= 126 mg/dL should be repeated on a subsequent day. Diagnosis and Classification of Diabetes Mellitus, Position Statement from the [place] [employer]. ??Diabetes Care, Volume 33, Supplement 1, Jul 2009 Blood Urea Nitrogen 14 10 - 20 mg/dL [facility] Creatinine 0.73(L) 0.80 - 1.50 mg/dL [facility] Sodium 136 135 - 145 mmol/L [facility] Potassium 4.3 3.5 - 5.0 mmol/L [facility] Comment: Please note: ??Patients with WBC >100,000 may have falsely elevated Potassium levels. ??For accurate Potassium quantification in these patients send serum separator tube (gold top) for subsequent determinations. ??Contact the Clinical Chemistry Laboratory if there are any questions. Chloride 101 98 - 107 mmol/L [facility] Carbon Dioxide 23 22 - 31 mmol/L [facility] Anion Gap 12 5 - 15 mmol/L [facility] Calcium 9.6 8.5 - 10.5 mg/dL [facility] Est Glomerular Filtration Rate 102 >=60 mL/min/1. 73 m?? [facility] Comment: This patient? s estimated glomerular filtration rate (eGFR) is between 102 mL/min/1.73 m2 (patients with less muscle mass per kg body weight) and 118 mL/min/1.73 m2 (patients with more muscle mass per kg body weight) as determined by the CKD-EPI equation. Assessment of eGFR is not appropriate when creatinine concentrations are rapidly changing. For clinical decisions where creatinine clearance will affect therapy, a 24-hour urine creatinine clearance may be advised. Assignment of CKD stage 1 - 5 for patients with an eGFR near the transition point between stages may be based on clinical assessment of muscle mass and symptoms in addition to eGFR. Blood specimen (specimen) 10/19/2020 8:18 AM EDT 10/19/2020 8:26 AM EDT Narrative Resulting Agency Comment Spec In Lab Earnest Aguilera MD CHEMISTRY ORDERABLES Performing Organization Address City/State/[facility] Co de Phone Number [facility] [place] [address] documented in this encounter Visit Diagnoses Diagnosis Abnormal stress test- Primary Other nonspecific abnormal cardiovascular system function study Abnormal stress test Other nonspecific abnormal cardiovascular system function study Coronary artery disease Coronary atherosclerosis of unspecified type of vessel, [place] or graft Abnormal stress test Other nonspecific abnormal cardiovascular system function study Coronary artery disease, angina presence unspecified, unspecified vessel or lesion type, unspecified whether [place] or transplanted heart documented in this encounter Admitting Diagnoses Diagnosis Abnormal stress test Other nonspecific abnormal cardiovascular system function study documented in this encounter Administered Medications Inactive Administered Medications - up to 3 most recent administrations Medication Order MAR Action Action Date Dose Rate Site fentaNYL (pf) (50 mcg/mL) multi-dose injection ONCE PRN, Starting on Sun10/19/20 at 1354, Until Sun10/19/20 at 2242, Intra-Operative (Intra-Procedure), Routine Given 10/19/2020 1:54 PM EDT 25 mcg heparin (porcine) (1,000 units/mL) injection ONCE PRN, Starting on Sun10/19/20 at 1356, Until Sun10/19/20 at 2242, Cath (Intra-Procedure), Routine Given 10/19/2020 1:56 PM EDT 5,000 Units iohexoL (Omnipaque) (350 mg/mL) injection solution ONCE PRN, Starting on Sun10/19/20 at 1410, Until Sun10/19/20 at 2242, Cath (Intra-Procedure), Routine Given 10/19/2020 2:10 PM EDT 55 mLs lidocaine (Xylocaine) 1% (10 mg/mL) injection 3 mg 3 mg (0.3 mL), Subcutaneous, ONCE PRN, 1 dose, Starting on Sun10/19/20 at 1227, Until Sun10/19/20 at 2242, with discomfort with PIV insertion, Cath (Day of Procedure), Routine midazolam (pf) (Versed) (1 mg/mL) multi-dose injection ONCE PRN, Starting on Sun10/19/20 at 1354, Until Sun10/19/20 at 2242, Cath (Intra-Procedure), Routine Given 10/19/2020 1:54 PM EDT 1 mg nitroGLYcerin 100 mcg/mL intracoronary dilution ONCE PRN, Starting on Sun10/19/20 at 1353, Until Sun10/19/20 at 2242, Cath (Intra-Procedure), Routine Given 10/19/2020 1:53 PM EDT 150 mcg sodium chloride 0.9 % (flush) flush 5 mL 5 mL, Intravenous, EVERY 12 HOURS, First dose on Sun10/19/20 at 1245, Until Discontinued, Cath (Day of Procedure), Routine sodium chloride 0.9 % (flush) flush 5-20 mL 5-20 mL, Intravenous, EVERY 1 MIN PRN, Starting on Sun10/19/20 at 1227, Until Sun10/19/20 at 2242, flush, Flush pertains to all indwelling lines. Flush per protocol found in the job aid using the link provided on this medication record., Cath (Day of Procedure), Routine sodium chloride 0.9% infusion 200 mL/hr, Intravenous, CONTINUOUS, Starting on e 10/19/20 at 1245, Until Sun10/19/20 at 2242, Cath (Day of Procedure) New Bag 10/19/2020 12:47 PM EDT 200 mL/hr 200 mL/hr sodium chloride 0.9% infusion 125 mL/hr, Intravenous, CONTINUOUS, Starting on e 10/19/20 at 1445, Until Sun10/19/20 at 1644, Recovery (Recovery-Hospital Unit) Continued Bag 10/19/2020 2:30 PM EDT 125 mL/hr 125 mL/hr verapamiL (Isoptin) (2.5 mg/mL) injection ONCE PRN, Starting on Sun10/19/20 at 1353, Until Sun10/19/20 at 2242, Administer over 2 Minutes, Cath (Intra-Procedure) Given 10/19/2020 1:53 PM EDT 2.5 mg documented in this encounter Active and Recently Administered Medications Times are shown in EDT. Scheduled Medication Order 10/17/2020 10/18/2020 10/19/2020 sodium chloride 0.9 % (flush) flush 5 mL 5 mL, Intravenous, EVERY 12 HOURS, First dose on Sun10/19/20 at 1245, Until Discontinued, Cath (Day of Procedure), Routine 1245 (Due) Continuous Medication Order 10/17/2020 10/18/2020 10/19/2020 sodium chloride 0.9% infusion 200 mL/hr, Intravenous, CONTINUOUS, Starting on Sun10/19/20 at 1245, Until Sun10/19/20 at 2242, Cath (Day of Procedure) 1247 (New Bag - Prov ider: Iliana Grewal RN) sodium chloride 0.9% infusion 125 mL/hr, Intravenous, CONTINUOUS, Starting on e 10/19/20 at 1445, Until Sun10/19/20 at 1644, Recovery (Recovery-Hospital Unit) 1430 (Continued Bag - Provider: Rocío Purdy RN) PRN Medication Order 10/17/2020 10/18/2020 10/19/2020 atropine (0.1 mg/mL) injection 1 mg 1 mg, Intravenous, Administer over 4 Hours, EVERY 5 MIN PRN, 2 doses, Starting on Sun10/19/20 at 1421, Until Sun10/19/20 at 2242, Other, vasovagal episode, Call interventional MD. , Cath (Recovery-Hospital Unit), Routine fentaNYL (PF) (50 mcg/mL) injection 25 mcg 25 mcg, Intravenous, Administer over 4 Hours, EVERY 30 MIN PRN, 4 doses, Starting on Sun10/19/20 at 1421, Until Sun10/19/20 at 2242, Pain, sheath removal, May repeat once while in Cath Recovery Unit , Cath (Recovery-Hospital Unit), Routine fentaNYL (pf) (50 mcg/mL) multi-dose injection ONCE PRN, Starting on Sun10/19/20 at 1354, Until Sun10/19/20 at 2242, Intra-Operative (Intra-Procedure), Routine 1354 (Given - Provid er: Matilde John RN) heparin (porcine) (1,000 units/mL) injection ONCE PRN, Starting on Sun10/19/20 at 1356, Until Sun10/19/20 at 2242, Cath (Intra-Procedure), Routine 1356 (Given - Provid er: Pérez Fraire) iohexoL (Omnipaque) (350 mg/mL) injection solution ONCE PRN, Starting on Sun10/19/20 at 1410, Until Sun10/19/20 at 2242, Cath (Intra-Procedure), Routine 1410 (Given - Provid er: Earnest Aguilera MD) lidocaine (Xylocaine) 1% (10 mg/mL) injection 3 mg 3 mg (0.3 mL), Subcutaneous, ONCE PRN, 1 dose, Starting on Sun10/19/20 at 1227, Until Sun10/19/20 at 2242, with discomfort with PIV insertion, Cath (Day of Procedure), Routine midazolam (pf) (Versed) (1 mg/mL) injection 1 mg 1 mg, Intravenous, Administer over 4 Hours, EVERY 1 HOUR PRN, 2 doses, Starting on Sun10/19/20 at 1421, Until Sun10/19/20 at 2242, For sheath removal, May repeat once while in Cath Recovery Unit. , Cath (Recovery-Hospital Unit), Routine midazolam (pf) (Versed) (1 mg/mL) multi-dose injection ONCE PRN, Starting on Sun10/19/20 at 1354, Until Sun10/19/20 at 2242, Cath (Intra-Procedure), Routine 1354 (Given - Provid er: Matilde John RN) nitroGLYcerin (Nitrostat) disintegrating tablet 0.4 mg 0.4 mg, Sublingual, EVERY 5 MIN PRN, Starting on Sun10/19/20 at 1421, Until Sun10/19/20 at 2242, Chest pain, May repeat every 5 minutes for a total of three doses. Notify provider if chest pain not relieved with nitroglycerin. Do not administer nitroglycerin if the patient has received or taken phosphodiesterase (PDE-5) inhibitors such as sildenafil, tadalafil or vardenafil within the last 24 to 72 hours., Recovery (Recovery-Hospital Unit), Routine nitroGLYcerin 100 mcg/mL intracoronary dilution ONCE PRN, Starting on Sun10/19/20 at 1353, Until Sun10/19/20 at 2242, Cath (Intra-Procedure), Routine 1353 (Given - Provid er: Rusty Zaragoza) sodium chloride 0.9 % (flush) flush 5-20 mL 5-20 mL, Intravenous, EVERY 1 MIN PRN, Starting on Sun10/19/20 at 1227, Until Sun10/19/20 at 2242, flush, Flush pertains to all indwelling lines. Flush per protocol found in the job aid using the link provided on this medication record., Cath (Day of Procedure), Routine verapamiL (Isoptin) (2.5 mg/mL) injection ONCE PRN, Starting on Sun10/19/20 at 1353, Until Sun10/19/20 at 2242, Administer over 2 Minutes, Cath (Intra-Procedure) 1353 (Given - Provid er: Rusty Zaragoza) documented in this encounter Care Teams Service Or Work Dispatcher Chief Relationship Specialty Start Date End Date Андрей Coello MD [address] [place] [address] PCP - General 12/05/16 documented as of this encounter
--- OUTSIDE RECORDS SUMMARY | 2024-03-05 10:40 | XMS_ITS | Encounter Summary ---
Author Organization Formerly [facility] [place] [address] Care Team Providers Care Data Transcriber Name Role Phone Андрей Coello MD Primary Care Provider [phone] Reason for Visit * Reason Onset Date Comments Other 10/20/2020 cardiac cath rai castillo Encounter Details Date Type Department Care Team (Late st Contact Info) Description 10/20/2020 Telephone Cardiology at [address] [phone] Betzaida Velasco RN Other (cardiac cath question) Social History Tobacco Use Types Packs/Day Years Used Date Smoking Tobacco: Former Cigarettes Q uit: 10/09/2010 Smokeless Tobacco: Never Sex and Gender Information Value Date Recorded Sex Assigned at Not on file Gender Identity Not on file Sexual Orientation Not on file documented as of this encounter Miscellaneous Notes * Telephone Encounter - Betzaida Velasco RN - 10/20/2020 1:06 PM EDT VM from [facility] requesting a call back. He reports having a cath yesterday and that ED said somethingabout fluid and he is calling to see if he had fluid around his heart Chart reviewed. Returned call to patient. Right wrist still with dressing and reported as tender Reviewed s/sx to observer and treatment. Teach back method. Recalls having no blockages and has an appointment with Dr. Silvestre in about 2 weeks. He recalls during the test hearing something about fluid and decided to call. He is feeling fine. Will route to Dr. Silvestre to review. Assured [facility] that if they had been concerned about fluid overload during the procedure they would have treated this. Betzaida Velasco RN 4A Cardiology documented in this encounter Plan of Treatment Upcoming Encounters Date Type Department Care Team (Late st Contact Info) Description 03/11/2024 8:00 AM EDT Office [place] [address] Ananya Torres, WATER TAXI OPERATOR 03/26/2024 9:00 AM EDT Appointment Non-Invasive [place] [address] Ronnie Jamil MD [address] [place] [address] [place] [address] 03/26/2024 11:30 AM EDT Appoint[place] [address] Ronnie Jamil MD [address] [place] [address] [place] [address] 03/26/2024 2:30 PM EDT Appointment [place] [address] 03/26/2024 4:30 PM EDT [place] [address] Ronnie Jamil MD [address] [place] [address] [place] [address] 04/01/2024 8:00 AM EDT Office [place] [address] Ananya Torres, WATER TAXI OPERATOR 04/15/2024 8:00 AM EDT Office [place] [address] Ananya Torres, WATER TAXI OPERATOR 04/29/2024 8:00 AM EDT Office [place] [address] Ananya Torres, WATER TAXI OPERATOR documented as of this encounter Visit Diagnoses Not on filedocumented in this encounter Care Teams Data Transcriber Relationship Specialty Start Date End Date Андрей Coello MD [address] [place] [address] PCP - General 12/05/16 documented as of this encounter
--- OUTSIDE RECORDS SUMMARY | 2024-03-05 10:40 | XMS_ITS | Clinical Summary ---
Author Organization [facility] Address [facility] [place] [address] Care Team Providers Care Position Classification Manager Name Role Phone Андрей Coello MD Primary Care Provider [phone] Allergies Active Allergy Reactions Criticality Noted Date Comments Codeine Nausea Only Medium 04/06/2011 Isosorbide Other (See Comments) 06/10/2013 Faint, headaches Lisinopril Other (See Comments) Low - cough Medications Medication Sig Dispensed Refills Start Date End Date Status nitroGLYcerin (NITROSTAT) 0.4 mg SL tablet 0.4mg, Sublingual, PRN 05/15/2005 Active metoprolol tartrate (LOPRESSOR) 25 mg tabletIndications: hypertension Take 50 mg by mouth 2 times daily. Indications: hypertension Active amlodipine (NORVASC) 10 mg tablet Take 10 mg by mouth daily. Active aspirin 325 mg EC tablet Take 1 tablet by mouth daily. 30 tablet 04/08/2011 Active Additional Information Patient not taking.Reported on 11/22/2023 PARoxetine (PAXIL) 30 mg tablet Take 30 mg by mouth every morning. Active gabapentin (NEURONTIN) 300 mg Capsule Take 300 mg by mouth daily. Active isosorbide dinitrate (ISORDIL) 30 mg Tablet Take 30 mg by mouth daily (after breakfast). Active empagliflozin (JARDIANCE) 25 mg Tablet Take 25 mg by mouth daily. Active omeprazole 20 mg Tablet, Delayed Release (E.C.) Take 20 mg by mouth. Active cholecalciferol, Vitamin D3, 1,000 unit Tablet Take by mouth daily. Act denise glipiZIDE (GLUCOTROL XL) 10 mg Tablet Extended Rel 24 hr Take 20 mg by mouth daily. Active atorvastatin (LIPITOR) 80 mg Tablet Take 40 mg by mouth daily. Active metFORMIN (GLUCOPHAGE) 500 mg Tablet Take 1,000 mg by mouth 2 times daily (with meals). Active levothyroxine (SYNTHROID) 25 mcg Tablet Take 25 mcg by mouth daily. Active aspirin 81 mg chewable tablet Take 81 mg by mouth daily. Active Trulicity 0.75 mg/0.5 mL Pen Injector 0.75 mg by abdominal subcutaneous route once a week. 10/31/2023 Active furosemide (Lasix) 20 mg tablet Take 20 mg by mouth daily. 11/02/2023 Active losartan (Cozaar) 25 mg tablet Take 1 tablet by mouth Daily at Noon. 11/02/2023 Active tamsulosin (Flomax) 0.4 mg capsule Take 1 capsule by mouth Daily at Noon. 11/02/2023 Active Active Problems Problem Noted Date Diagnosed Date Abnormal stress test 10/15/2020 Overview (10/15/2020): Added automatically from request for surgery [id number] Coronary artery disease 10/15/2020 Overview (10/18/2020): Added automatically from request for surgery [id number] Lichen simplex chronicus 12/13/2015 Spinal stenosis of lumbar region 06/24/2014 CAD (coronary artery disease) 04/07/2011 Overview (04/21/2012): 1. Status post PCI with Cypher CHANELL x 2 in 2002 and 2003 to the RCA 2. Status post PCI with Vision 3.5 x 18 BMS post dilated to 4.0 Knee injuries 04/07/2011 Hyperlipidemia 04/07/2011 Hypertension 04/07/2011 Encounters Date Type Department Care Team Description 02/12/2024 11:00 AM EDT Office [place] [address] Ananya Torres, [employer] Cognitive communication deficit 02/12/2024 Travel 01/31/2024 9:00 AM EDT Office [place] [address] Ananya Torres, [employer] Cognitive communication deficit 01/31/2024 Travel from Last 3 Months Social History Tobacco Use Types Packs/Day Years Used Date Smoking Tobacco: Former Cigarettes Q uit: 10/09/2010 Smokeless Tobacco: Never Sex and Gender Information Value Date Recorded Sex Assigned at Not on file Gender Identity Not on file Sexual Orientation Not on file Last Filed Vital Signs Vital Sign Reading Time Taken Comments Blood Pressure 132/72 11/22/2023 9:37 AM EDT Pulse 67 10/19/2020 4:27 PM EDT Temperature 36.7 ??C (98.1 ??F) 10/19/2020 4:27 PM ED T Respiratory Rate 16 10/19/2020 4:45 PM EDT Oxygen Saturation 96% 10/19/2020 5:00 PM EDT Inhaled Oxygen Concentration - - Weight 127.9 kg (282 lb) 11/22/2023 9:37 AM EDT pt reported Height 182.9 cm (6') 11/22/2023 9:37 AM EDT pt r eported Body Mass Index 38.25 11/22/2023 9:37 AM EDT Plan of Treatment Upcoming Encounters Date Type Department Care Team (Late st Contact Info) Description 03/11/2024 8:00 AM EDT Office [place] [address] Ananya Torres, [employer] 03/26/2024 9:00 AM EDT Appointment Non-[place] [address] Ronnie Jamil MD [address] [place] [address] [place] [address] 03/26/2024 11:30 AM ED[place] [address] Ronnie Jamil MD [address] [place] [address] [place] [address] 03/26/2024 2:30 PM EDT Appointment [place] [address] 03/26/2024 4:30 PM EDT Office [place] [phone] Ronnie Jamil MD [address] [place] [address] [place] [address] 04/01/2024 8:00 AM EDT Office [place] [phone] Ananya Torres, [employer] 04/15/2024 8:00 AM EDT Office [place] [phone] Ananya Torres, VIKI 04/29/2024 8:00 AM EDT Office [place] [phone] Ananya Torres, [employer] Health Maintenance Due Date Last Done Comments CT Colonography 1961 Colonoscopy 1961 Colorectal Cancer Screening 1961 FIT DNA 1961 FIT 1961 Sigmoidoscopy (10 year) with FIT yearly 1961 Sigmoidoscopy 1961 HIV screen 1979 Hepatitis C Screening 1979 Tdap adult 02/24/1980 Tetanus vaccine 02/24/1980 Zoster vaccine (1 of 2) 2011 Advance Directive 02/24/2016 Covid-19 Vaccine ( season) 2023 Diabetes Screening (HgbA1C o r Glucose) 10/20/2023 10/19/2020, 04/08/2011, 04/08/2011 Influenza (Flu) vaccine (1 o f 1 - Influenza standard series) 03/23/2024 Procedures Procedure Name Priority Date/Time Associated Diagnosis Comments LIST OF [employer] IDE[employer] PLAN OF CARE CERT/RE-CERT Routine 01/31/2024 4:22 PM EDT Cognitive communication deficit HC VENIPUNCTURE STAT 10/19/2020 8:18 AM EDT from Last 3 Months or Most Recently Relevant to Health Maintenance Results * (ABNORMAL) BMP w/fasting Glucose (10/19/2020 8:18 AM EDT) Glucose Fasting 164(H) 65 - 99 mg/dL [facility] Comment: ?Fasting* Glucose Interpretive Criteria [...] of Diabetes Mellitus, Position Statement from the [place] [employer]. ??Diabetes Care, Volume 33, Supplement 1, Jul 2009 Blood Urea Nitrogen 14 10 - 20 mg/dL [facility] Creatinine 0.73(L) 0.80 - 1.50 mg/dL [facility] Sodium 136 135 - 145 mmol/L [facility] Potassium 4.3 3.5 - 5.0 mmol/L [facility] Comment: Please note: ??Patients with WBC >100,000 may have falsely elevated Potassium levels. ??For accurate Potassium quantification in these patients send serum separator tube (gold top) for subsequent determinations. ??Contact the Clinical Chemistry Laboratory if there are any questions. Chloride 101 98 - 107 mmol/L [facility] Carbon Dioxide 23 22 - 31 mmol/L [facility] Anion Gap 12 5 - 15 mmol/L [facility] Calcium 9.6 8.5 - 10.5 mg/dL [facility] Est Glomerular Filtration Rate 102 >=60 mL/min/1. 73 m?? [facility] Comment: This patient? s estimated [...] In Lab Earnest Aguilera MD [place] [address] from Last 3 Months or Most Recently Relevant to Health Maintenance Advance Directives * Attempt Cardiopulmonary Resuscitation - Inpatient (Latest Code Status on File) Date Activated Date Inactivated Comments 10/19/2020 1:22 PM 10/19/2020 10:47 PM Question Answer Comments Code Status decision made by: Patient * Attempt Cardiopulmonary Resuscitation - Inpatient Date Activated Date Inactivated Comments 10/19/2020 1:21 PM 10/19/2020 1:22 PM Question Answer Comments Code Status decision made by: Patient * Full Code Date Activated Date Inactivated Comments 01/26/2017 1:07 PM 01/26/2017 6:32 PM Question Answer Comments Does patient have capacity to make decision: Yes * Full Code Date Activated Date Inactivated Comments 04/07/2011 12:34 PM 04/08/2011 2:22 PM Question Answer Comments Order Status: Initial Order Does patient have decision m aking capacity? Yes, Order is based on Patients wishes. Care Teams Position Classification Manager Relationship Specialty Start Date End Date Андрей Coello MD [address] [place] [address] PCP - General 12/05/16
--- OUTSIDE RECORDS SUMMARY | 2024-03-05 10:40 | XMS_ITS | Encounter Summary ---
Author Organization [facility] [place] [address] Care Team Providers Care Silver Lap Machine Tender Name Role Phone Андрей Coello MD Primary Care Provider [phone] Encounter Details Date Type Department Care Team (Late st Contact Info) Description 10/15/2020 Orders [place] [phone] Ramakrishna Mera PA [facility] [place] [address] Screening for cardiovascular condition; Abnormal stress test; Coronary artery disease, angina presence unspecified, unspecified vessel or lesion type, unspecified whether [place] or transplanted heart Social History Tobacco Use Types Packs/Day Years [...] AM EDT Office [place] [address] Ananya Torres, BRICK PICKER 03/26/2024 9:00 AM EDT Appointment Non[place] [address] Ronnie Jamil MD [address] [place] [address] [place] [address] 03/26/2024 11:30 AM [place] [address] Ronnie Jamil MD [address] [address] [place] [address] 03/26/2024 2:30 PM EDT Appoint[place] [address] 03/26/2024 4:30 PM EDT [place] [address] Ronnie Jamil MD [address] [address] [place] [address] 04/01/2024 8:00 AM EDT Office [place] [address] Ananya Torres, BRICK PICKER 04/15/2024 8:00 AM EDT Office [place] [address] Ananya Torres, BRICK PICKER 04/29/2024 8:00 AM EDT Office [place] [address] Ananya Torres, BRICK PICKER documented as of this encounter Visit Diagnoses Diagnosis Screening for cardiovascular condition Screening for other and unspecified cardiovascular conditions Abnormal stress test Other nonspecific abnormal cardiovascular system function study Coronary artery disease, angina presence unspecified, unspecified vessel or lesion type, unspecified whether [place] or transplanted heart documented in this encounter Care Teams Silver Lap Machine Tender Relationship Specialty Start Date End Date Андрей Coello MD [facility] [place] [address] PCP - General 12/05/16 documented as of this encounter
--- OUTSIDE RECORDS SUMMARY | 2024-03-05 10:40 | XMS_ITS | Encounter Summary ---
Author Organization [facility] [place] [address] Care Team Providers Care Career Development Manager Name Role Phone Андрей Coello MD Primary Care Provider [phone] Encounter Details Date Type Department Care Team (Late st Contact Info) Description 10/03/2023 Ancillary Procedure [place] [address] Андрей Coello MD [address] [place] [address] Social History Tobacco Use Types Packs/Day Years [...] AM EDT Office [place] [address] Ananya Torres, PROFESSOR OF OCEANOGRAPHY 03/26/2024 9:00 AM EDT Appointment Non-[place] [address] Ronnie Jamil MD [address] [place] [address] [place] [address] 03/26/2024 11:30 [place] [address] Ronnie Jamil MD [address] [address] [place] [address] 03/26/2024 2:30 PM EDT Appointment [place] [address] 03/26/2024 4:30 PM EDT Office [place] [address] Ronnie Jamil MD [address] [address] [place] [address] 04/01/2024 8:00 AM EDT Office [place] [address] Ananya Torres, PROFESSOR OF OCEANOGRAPHY 04/15/2024 8:00 AM EDT Office [place] [address] Ananya Torres, PROFESSOR OF OCEANOGRAPHY 04/29/2024 8:00 AM EDT Office [place] [address] Ananya Torres, PROFESSOR OF OCEANOGRAPHY documented as of this encounter Procedures Procedure Name Priority Date/Time Associated Diagnosis Comments FILM LIBRARY STORAGE ONLY ULTRASOUND STUDY Routine 10/03/2023 12:00 AM EDT documented in this encounter Results * Film Library- Storage Only Ultrasound Study (10/03/2023 12:00 AM EDT) Narrative [facility] - 12/03/2023 4:32 PM EDT This exam is auto-finalizing. It's purpose is for storage only. Андрей Coello MD IMG FILM LIBRARY ORD ERABLES [place], [place] documented in this encounter Visit Diagnoses Not on filedocumented in this encounter Care Teams Career Development Manager Relationship Specialty Start Date End Date Андрей Coello MD [address] [place] [address] PCP - General 12/05/16 documented as of this encounter
--- OUTSIDE RECORDS SUMMARY | 2024-03-05 10:40 | XMS_ITS | Encounter Summary ---
Author Organization [facility] [place] [address] Care Team Providers Care Clinical Neuropsychologist Name Role Phone Андрей Coello MD Primary Care Provider Encounter Details Date Type Department Care Team (Late Contact Info) Description 03/13/2023 Ancillary Procedure [place] [address] Андрей Coello MD [address] [place] [address] Social History Tobacco Use Types Packs/Day [...] AM EDT Office [place] [address] Ananya Torres, TROUBLE SHOOTER 03/26/2024 9:00 AM EDT Appointment Non[place] [address] Ronnie Jamil MD [address] [place] [address] [place] [address] 03/26/2024 11:30 [place] [address] Ronnie Jamil MD [address] [address] [place] [address] 03/26/2024 2:30 PM EDT Appoint[place] [address] 03/26/2024 4:30 PM EDT [place] [address] Ronnie Jamil MD [address] [address] [place] [address] 04/01/2024 8:00 AM EDT Office [place] [address] Ananya Torres, TROUBLE SHOOTER 04/15/2024 8:00 AM EDT Office [place] [address] Ananya Torres, TROUBLE SHOOTER 04/29/2024 8:00 AM EDT Office [place] [address] Ananya Torres, TROUBLE SHOOTER documented as of this encounter Procedures Procedure Name Priority Date/Time Associated Diagnosis Comments FILM LIBRARY STORAGE ONLY NUCLEAR MEDICINE Routine 03/13/2023 12:00 AM EDT documented in this encounter Results * Film Library- Storage Only nuclear medicine (03/13/2023 12:00 AM EDT) Narrative [facility] - 12/03/2023 4:32 PM EDT This exam is auto-finalizing. It's purpose is for storage only. Андрей Coello MD IMG FILM LIBRARY ORD ERABLES [place] documented in this encounter Visit Diagnoses Not on filedocumented in this encounter Care Teams Clinical Neuropsychologist Relationship Specialty Start Date End Date Андрей Coello MD [address] [place] [address] PCP - General 12/05/16 documented as of this encounter
--- OUTSIDE RECORDS SUMMARY | 2024-03-05 10:40 | XMS_ITS | Encounter Summary ---
Author Organization [facility] [place] [address] Care Team Providers Care Watch Hairspring Assembler Name Role Phone Андрей Coello MD Primary Care Provider [phone] Encounter Details Date Type Department Care Team (Late Contact Info) Description 11/26/2023 [place]phone [place] [phone] Ronnie Jamil MD [address] [place] [address] [place] [address] Social History Tobacco Use Types Packs/Day Years Used Date Smoking Tobacco: Former Cigarettes Q uit: 10/09/2010 Smokeless Tobacco: Never Sex and Gender Information Value Date Recorded Sex Assigned at Not on file Gender Identity Not on file Sexual Orientation Not on file documented as of this encounter Miscellaneous Notes * Telephone Encounter - Shirley Guillaume - 11/26/2023 10:28 AM EDT Copied from [facility] #[id number]. Topic: Specialty Dept CRMs - Generic Call >> November 22, 2023 1:20 PM Jenna Juarez wrote: Specialist: Aubrey Jamil MD Relationship (if other than patient-full name): [facility] Reason for Call: [place] was calling as they received a fax for imaging records and films that was to be sent to [facility] documented in this encounter Plan of Treatment Upcoming Encounters Date Type Department Care Team (Late Contact Info) Description 03/11/2024 8:00 AM EDT Office [place] [address] Ananya Torres, FIRER BOILER 03/26/2024 9:00 AM EDT Appointment Non-Invasive Cardiology Lab [facility] [place] [address] Ronnie Jamil MD [address] [address] [place] [address] 03/26/2024 11:30 AM EDT Appointment [place] [address] Ronnie Jamil MD [address] [address] [place] [address] 03/26/2024 2:30 PM EDT Appointment [place] [address] 03/26/2024 4:30 PM EDT Office Visit Neurology [place] [address] Ronnie Jamil MD [address] [place] [address] [place] [address] 04/01/2024 8:00 AM EDT Office [place] [address] Ananya Torres, FIRER BOILER 04/15/2024 8:00 AM EDT Office [place] [address] Ananya Torres, FIRER BOILER 04/29/2024 8:00 AM EDT Office Visit Speech [place] [address] Ananya Torres, FIRER BOILER documented as of this encounter Visit Diagnoses Not on filedocumented in this encounter Care Teams Watch Hairspring Assembler Relationship Specialty Start Date End Date Андрей Coello MD [address] [place] [address] PCP - General 12/05/16 documented as of this encounter
--- OUTSIDE RECORDS SUMMARY | 2024-03-05 10:40 | XMS_ITS | Encounter Summary ---
Author Organization [facility] [place] [address] Care Team Providers Care College Sports Coach Name Role Phone Андрей Coello MD Primary Care Provider [phone] Encounter Details Date Type Department Care Team (Late Contact Info) Description 06/18/2023 Ancillary Procedure [place] [address] Андрей Coello MD [address] [place] [address] Social History Tobacco Use Types Packs/Day [...] AM EDT Office [place] [address] Ananya Torres, PRODUCT MANAGEMENT INTERN 03/26/2024 9:00 AM EDT Appointment Non-Invasive [place] [address] Ronnie Jamil MD [address] [place] [address] [place] [address] 03/26/2024 11:30 [place] [address] Ronnie Jamil MD [address] [address] [place] [address] 03/26/2024 2:30 PM EDT Appointment [place] [address] 03/26/2024 4:30 PM EDT [place] [address] Ronnie Jamil MD [address] [address] [place] [address] 04/01/2024 8:00 AM EDT Office [place] [address] Ananya Torres, PRODUCT MANAGEMENT INTERN 04/15/2024 8:00 AM EDT Office [place] [address] Ananya Torres, PRODUCT MANAGEMENT INTERN 04/29/2024 8:00 AM EDT Office [place] [address] Ananya Torres, PRODUCT MANAGEMENT INTERN documented as of this encounter Procedures Procedure Name Priority Date/Time Associated Diagnosis Comments FILM LIBRARY STORAGE ONLY MR HEAD Routine 06/18/2023 12:00 AM EST documented in this encounter Results * Film Library- Storage Only MR Head (06/18/2023 12:00 AM EST) Narrative [facility] - 12/03/2023 4:32 PM EDT This exam is auto-finalizing. It's purpose is for storage only. Андрей Coello MD IMG FILM LIBRARY ORD ERABLES [place], [place] documented in this encounter Visit Diagnoses Not on filedocumented in this encounter Care Teams College Sports Coach Relationship Specialty Start Date End Date Андрей Coello MD [address] [place] [address] PCP - General 12/05/16 documented as of this encounter
--- OUTSIDE RECORDS SUMMARY | 2024-03-05 10:40 | XMS_ITS | Encounter Summary ---
Author Organization [facility] [place] [address] Care Team Providers Care Electron Beam Welder Name Role Phone Андрей Coello MD Primary Care Provider Encounter Details Date Type Department Care Team (Late st Contact Info) Description 10/15/2020 [place] [address] Jeannette Vang PA [facility] [place] [address] Abnormal stress test Social History Tobacco Use Types Packs/Day Years [...] AM EDT Office [place] [address] Ananya Torres, SHELTERED WORKSHOP EXECUTIVE DIRECTOR 03/26/2024 9:00 AM EDT Appointment Non[place] [address] Ronnie Jamil MD [address] [place] [address] [place] [address] 03/26/2024 11:30 AM [place] [address] Ronnie Jamil MD [address] [address] [place] [address] 03/26/2024 2:30 PM EDT Appointment [place] [address] 03/26/2024 4:30 PM EDT [place] [address] Ronnie Jamil MD [address] [address] [place] [address] 04/01/2024 8:00 AM EDT Office [place] [address] Ananya Torres, SHELTERED WORKSHOP EXECUTIVE DIRECTOR 04/15/2024 8:00 AM EDT Office [place] [address] Ananya Torres, SHELTERED WORKSHOP EXECUTIVE DIRECTOR 04/29/2024 8:00 AM EDT Office [place] [address] Ananya Torres, SHELTERED WORKSHOP EXECUTIVE DIRECTOR documented as of this encounter Visit Diagnoses Diagnosis Abnormal stress test Other nonspecific abnormal cardiovascular system function study documented in this encounter Care Teams Electron Beam Welder Relationship Specialty Start Date End Date Андрей Coello MD [facility] [place] [address] PCP - General 12/05/16 documented as of this encounter
--- OUTSIDE RECORDS SUMMARY | 2024-03-05 10:40 | XMS_ITS | Encounter Summary ---
Author Organization [facility] [place] [address] Care Team Providers Care Kennel Staff Member Name Role Phone Андрей Coello MD Primary Care Provider [phone] Reason for Referral * Consultation (Routine) - Closed Specialty Diagnoses / Procedures Referred By Chin t Referred To Contact Neurology Diagnoses Expressive language disorder ? Андрей Bueno MD [address] [place] [address] [facility] [address] [place] [phone] Referral ID Status Reason Start Date Expiration Date V isits Requested Visits Authorized [id number] Closed Consult, Test & Treat 07/05/2023 07/04/2024 1 1 Encounter Details Date Type Department Care Team (Latest Contact Info) Description 07/05/2023 Transcribe Orders eDH Incoming Referrals [phone] Андрей Coello MD [address] [place] [address] Expressive language disorder Social History Tobacco Use Types Packs/Day Years [...] AM EDT Office [place] [address] Ananya Torres, CUSTOMER EQUIPMENT ENGINEER 03/26/2024 9:00 AM EDT Appointment Non-[place] [address] Ronnie Jamil MD [address] [place] [address] [place] [address] 03/26/2024 11:30 AM EDT Appointment [place] [address] Ronnie Jamil MD [address] [place] [address] [place] [address] 03/26/2024 2:30 PM EDT Appointment [place] [address] 03/26/2024 4:30 PM EDT Office [place] [address] Ronnie Jamil MD [address] [place] [address] [place] [address] 04/01/2024 8:00 AM EDT Office [place] [address] Ananya Torres, CUSTOMER EQUIPMENT ENGINEER 04/15/2024 8:00 AM EDT Office [place] [address] Ananya Torres, CUSTOMER EQUIPMENT ENGINEER 04/29/2024 8:00 AM EDT Office [place] [address] Ananya Torres, CUSTOMER EQUIPMENT ENGINEER Scheduled Referrals Name Type Priority Associated Diagnoses Orde r Schedule Referral to Neurology Outpatient Referral Routine Expressive language disorder Ordered: 07/05/2023 documented as of this encounter Visit Diagnoses Diagnosis Expressive language disorder documented in this encounter Care Teams Kennel Staff Member Relationship Specialty Start Date End Date Андрей Coello MD [address] [place] [address] PCP - General 12/05/16 documented as of this encounter
--- OUTSIDE RECORDS SUMMARY | 2024-03-05 10:40 | XMS_ITS | Encounter Summary ---
[place] [address] Care Team Providers Care Business Process Consultant Name Role Phone Андрей Coello MD Primary Care Provider [phone] Encounter Details Date Type Department Care Team (Latest Contact Info) Description 02/12/2024 Travel Social History Tobacco Use Types Packs/Day [...] AM EDT Office [place] [address] Ananya Torres, DUMPING MACHINE OPERATOR 03/26/2024 9:00 AM EDT Appointment Non-Invasive [place] [address] Ronnie Jamil MD [address] [place] [address] [place] [address] 03/26/2024 11:30 [place] [address] Ronnie Jamil MD [address] [place] [address] [place] [address] 03/26/2024 2:30 PM EDT Appointment [place] [address] 03/26/2024 4:30 PM EDT [place] [address] Ronnie Jamil MD [address] [place] [address] [place] [address] 04/01/2024 8:00 AM EDT Office [place] [address] Ananya Torres, DUMPING MACHINE OPERATOR 04/15/2024 8:00 AM EDT Office [place] [address] Ananya Torres, DUMPING MACHINE OPERATOR 04/29/2024 8:00 AM EDT Office [place] [address] Ananya Torres, DUMPING MACHINE OPERATOR documented as of this encounter Visit Diagnoses Not on filedocumented in this encounter Care Teams Business Process Consultant Relationship Specialty Start Date End Date Андрей Coello MD [address] [place] [address] [place] [address] PCP - General 12/05/16 documented as of this encounter
--- OUTSIDE RECORDS SUMMARY | 2024-03-05 10:40 | XMS_ITS | Encounter Summary ---
Author Organization [facility] Address [facility] [place] [address] Care Team Providers Care Garden Equipment Mechanic Name Role Phone Андрей Coello MD Primary Care Provider [phone] Encounter Details Date Type Department Care Team (Late st Contact Info) Description 10/19/2020 10:30 AM EDT - 10/19/2020 11:30 AM EDT Surgery [place] [address] Earnest Aguilera MD [facility] [place] [address] CARDIAC CATHETERIZATION Social History Tobacco Use Types Packs/Day Years Used Date Smoking Tobacco: Former Cigarettes Q uit: 10/09/2010 Smokeless Tobacco: Never Sex and Gender Information Value Date Recorded Sex Assigned at Not on file Gender Identity Not on file Sexual Orientation Not on file documented as of this encounter Discharge Instructions * Discharge Instructions* Michael Honeycutt RN - 10/19/2020 4:56 PM EDT Activity [...] by your doctor, do not take any yflu-jbl-udrhtug medicines or herbal preparations without first discussing this with your doctor or pharmacist. There is the possibility of side effect and interactions when these are combined. Follow up Care Who to Call with Questions or Problems If there are any questions or problems that you think might be related to your cardiac cath or angioplasty, contact the handkerchief presser montessori teacher by calling [facility] at . documented in this encounter [...] this encounter H&P Notes * Rusty Zaragoza - 10/19/2020 1:11 PM EDT Patient Name: Elias Pennington Patient Age: 60 y.o. Birthdate: 1960 Admit date: 10/19/2020 Attending Physician: Earnest Aguilera MD Elias Penningotn is a 60 y.o. male referred for cardiac catheterization by Dr. Silvestre for evaluation oftypical angina and positive stress test. Mr. Pennington is 60yo man with a PMH significant for CAD s/p multiple PCIs to the RCA (most recently in 2010) and cath in 2016 with non-obstructive disease, HTN, HLD, and T2DM [...] AM EDT Office [place] [address] Ananya Torres, SAND DRIER 03/26/2024 9:00 AM EDT Appointment Non-Invasive [place] [address] Ronnie Jamil MD [address] [place] [address] [place] [address] 03/26/2024 11:30 AM [place] [address] Ronnie Jamil MD [address] [facility] [address] [place] [address] 03/26/2024 2:30 PM EDT Appoint[place] [address] 03/26/2024 4:30 PM EDT Office Visit Neurology at [facility] [place] [address] Ronnie Jamil MD [address] [facility] [address] [place] [address] 04/01/2024 8:00 AM EDT Office [place] [address] Ananya Torres, SAND DRIER 04/15/2024 8:00 AM EDT Office [place] [address] Ananya Torres, SAND DRIER 04/29/2024 8:00 AM EDT Office [place] [address] Ananya Torres, SAND DRIER documented as of this encounter Procedures Procedure [...] Glucose, POC 98 65 - 199 mg/dL [facility] Comment: Supplemental ranges: <140 mg/dL before meals <180 mg/dL all other times of the day Blood specimen (specimen) 10/19/2020 4:40 PM EDT 10/19/2020 4:40 PM EDT Earnest Aguilera MD POINT OF CARE TEST O RDERAOLIVIA Performing Organization Address [facility] Co de Phone Number [facility] [place] [address] * POCT Glucose (10/19/2020 2:38 PM EDT) Glucose, POC 110 65 - 199 mg/dL [facility] Comment: Supplemental ranges: <140 mg/dL before meals <180 mg/dL all other times of the day Blood specimen (specimen) 10/19/2020 2:38 PM EDT 10/19/2020 2:38 PM EDT Earnest Aguilera MD POINT OF CARE TEST O RDBRIELLE Performing Organization Address [facility] [place] [address] * CARDIAC CATHETERIZATION (10/19/2020 2:14 PM EDT) Anatomical Region Laterality Modality Other Narrative 10/20/2020 2:29 AM EDT ?[facility] ? Cardiac Catheterization/Intervention Report ? Patient Name: Elias Pennington. ? Procedure Date: 10/19/2020 ? A #: [id number] ? Primary Physician: Earnest Aguilera ? Case #: [id number] ? File Name: [id number] ? Catheterization Order Number: [id number] ? [facility] ? Final Report [place], [place] ? Patient Name: ? Elias Pennington ?ID#: [id number] ? : ?1960 ? Procedure Date: ? [...] procedure was Elective. The indication for ?the cardiac cath technologist visit is worsening angina. Chest pain symptom [...] Ale, M.D. ? Electronically Signed by: Earnest Juarez Ale, M.D. ? Report Finalized: 10/19/2020 ??14:29 ? Procedure Note Earnest Aguilera MD - 10/20/2020 [facility] Cardiac Catheterization/Intervention Report Patient Name: Elias Pennington Procedure Date: 10/19/2020 A #: [id number] Primary Physician: Earnest Aguilera Case #: [id number] File Name: [id number] Catheterization Order Number: [id number] [facility] FinalReport [place], [place] Patient Name: Elias Pennington ID#:[id number] :1960 Procedure Date: October 19, 2020 Case [...] was designated as ASA Class III. The [facility] clinical frailtyscale is 3: Managing Well. Diagnostic [...] diagnostic procedure was Elective. Theindication for the cardiac cath technologist visit is worsening angina. Chest pain symptomassessment [...] units of heparin were administered. A total [id number] of Omnipaque were opened, 55cc of Omnipaque were administered [id number] of Omnipaque were wasted. Radiation: Fluoro time [...] (Bezet) 425 ms MUSE SYSTEM Calculated P [place] 54 degrees MUSE SYSTEM Calculated R [place] 7 degrees MUSE SYSTEM Calculated T [place] 21 degrees MUSE SYSTEM INTERPRETATION Normal sinus rhythm Normal ECG When compared with ECG of 26-JAN-2017 11:58, No significant change was found Confirmed by MD Tejas, Dandy Hidalgo ([id number]) on 10/19/2020 1:38:12 PM MUSE SYSTEM 10/19/2020 12:3 9 PM EDT 10/19/2020 1:38 PM EDT Earnest Aguilera MD ECG ORDERABLES MUSE SYSTEM * POCT Glucose (10/19/2020 12:25 PM EDT) Pathologist [facility] Glucose, POC 114 65 - 199 mg/dL [facility] Comment: Supplemental ranges: <140 mg/dL before meals <180 mg/dL all other times of the day Blood specimen (specimen) 10/19/2020 12:25 PM EDT 10/19/2020 12:25 PM EDT Earnest Aguilera MD POINT OF CARE TEST O RDERABLES [facility] [place] [address] * Differential, Automated (10/19/2020 8:18 AM EDT) Neutrophil % 70.1 % [facility] Neutrophil Absolute 4.98 1.70 - 6.10 x10(3)/[facility] Lymph % 21.5 % [facility] Lymphocytes Abs 1.5 0.9 - 3.2 x10(3)/[facility] Monocyte % 6.0 % [facility] Monocyte Abs 0.4 0.3 - 0.9 x10(3)/[facility] Eos % 1.3 % [facility] Eosinophils Abs 0.1 0.0 - 0.4 x10(3)/[facility] Basophil % 0.7 % [facility] Baso Absolute 0.0 0.0 - 0.1 x10(3)/[facility] Immature Gran % 0.40 % [facility] Comment: Immature granulocytes(IG's)percentage and absolute count will include metamyelocytes, myelocytes, and promyelocytes. Blood smears from CBCs yielding IG's will be scanned manually for concordance. If this scan disagrees with the automated IG or if promyelocytes are noted, a manual differential will be performed. Immature Gran Absolute 0.03 0.00 - 0.04 x10(3)/[facility] Blood specimen (specimen) 10/19/2020 8:18 AM EDT 10/19/2020 8:26 AM EDT Narrative Resulting Agency Comment Spec In Lab Ramakrishna MODI HEMATOLOGY ORDERABLE S [facility] [place] [address] * Hemogram (10/19/2020 8:18 AM EDT) White Blood Cell 7.1 4.0 - 9.5 x10(3)/[facility] Red Blood Cell 5.11 4.58 - 5.54 x10(6)/[facility] Hemoglobin 14.4 13.7 - 16.5 gm/dL [facility] Hematocrit 43.9 40.5 - 48.5 % [facility] Mean Cell Volume 85.9 82.9 - 93.1 fL [facility] Mean Cell Hemoglobin 28.2 27.5 - 32.1 pg [facility] Mean Cell Hemoglobin Concentration 32.8 32.0 - 35.7 gm/dL [facility] Platelet 167 145 - 357 x10(3)/[facility] RDW Standard Deviation 41.8 36.0 - 45.0 [facility] RDW coefficient of variation 13.3 11.4 - 13.8 % [facility] Mean Platelet Volume 10.6 7.6 - 12.9 [facility] NRBC% auto 0.0 % [facility] NRBC Absolute 0.000 0.000 - 0.000 x10(3)/[facility] Blood specimen (specimen) 10/19/2020 8:18 AM EDT 10/19/2020 8:26 AM EDT Narrative Resulting Agency Comment Spec In Lab Ramakrishna MODI HEMATOLOGY ORDERABLE S [facility] [place] [address] * (ABNORMAL) BMP w/fasting Glucose (10/19/2020 8:18 [...] of Diabetes Mellitus, Position Statement from the [employer] [employer]. ??Diabetes Care, Volume 33, Supplement [...] Aguilera MD CHEMISTRY ORDERABLES Performing Organization Address City/State/[facility] Co de Phone Number [facility] [place] [address] documented in this encounter Visit Diagnoses Diagnosis Abnormal stress test- Primary Other nonspecific abnormal cardiovascular system function study Abnormal stress test Other nonspecific abnormal cardiovascular system function study Coronary artery disease Coronary atherosclerosis of unspecified type of vessel, curyung or graft Abnormal stress test Other nonspecific abnormal cardiovascular system function study Coronary artery disease, angina presence unspecified, unspecified vessel or lesion type, unspecified whether curyung or transplanted heart documented in this encounter [...] infusion 125 mL/hr, Intravenous, CONTINUOUS, Starting on Sun10/19/20 at 1445, Until Sun10/19/20 at 1644, Recovery [...] Intravenous, EVERY 12 HOURS, First dose on 10/19/20 at 1245, Until Discontinued, Cath (Day of Procedure), Routine 1245 (Due) Continuous Medication Order 10/17/2020 10/18/2020 10/19/2020 sodium chloride 0.9% infusion 200 mL/hr, Intravenous, CONTINUOUS, Starting on 10/19/20 at 1245, Until 10/19/20 at 2242, Cath (Day of Procedure) 1247 (New Bag - Prov ider: Iliana Grewal RN) sodium chloride 0.9% infusion 125 mL/hr, Intravenous, CONTINUOUS, Starting on 10/19/20 at 1445, Until 10/19/20 at 1644, Recovery (Recovery-Hospital Unit) 1430 (Continued Bag - Provider: Rocío Purdy RN) PRN Medication Order 10/17/2020 10/18/2020 10/19/2020 atropine (0.1 mg/mL) injection 1 mg 1 mg, Intravenous, Administer over 4 Hours, EVERY 5 MIN PRN, 2 doses, Starting on 10/19/20 at 1421, Until 10/19/20 at 2242, Other, vasovagal episode, Call interventional MD. , Cath (Recovery-Hospital Unit), Routine fentaNYL (PF) (50 mcg/mL) injection 25 mcg 25 mcg, Intravenous, Administer over 4 Hours, EVERY 30 MIN PRN, 4 doses, Starting on 10/19/20 at 1421, Until 10/19/20 at 2242, Pain, sheath removal, May repeat once while in Cath Recovery Unit , Cath (Recovery-Hospital Unit), Routine fentaNYL (pf) (50 mcg/mL) multi-dose injection ONCE PRN, Starting on 10/19/20 at 1354, Until 10/19/20 at 2242, Intra-Operative (Intra-Procedure), Routine 1354 (Given - Provid er: Matilde John RN) heparin (porcine) (1,000 units/mL) injection ONCE PRN, Starting on 10/19/20 at 1356, Until 10/19/20 at 2242, Cath (Intra-Procedure), Routine 1356 (Given - Provid er: Pérez Fraire) iohexoL (Omnipaque) (350 mg/mL) injection solution ONCE PRN, Starting on e 10/19/20 at 1410, Until 10/19/20 at 2242, Cath (Intra-Procedure), Routine 1410 (Given - Provid er: Earnest Aguilera MD) lidocaine (Xylocaine) 1% (10 mg/mL) injection 3 mg 3 mg (0.3 mL), Subcutaneous, ONCE PRN, 1 dose, Starting on e 10/19/20 at 1227, Until 10/19/20 at 2242, with discomfort with PIV insertion, Cath (Day of Procedure), Routine midazolam (pf) (Versed) (1 mg/mL) injection 1 mg 1 mg, Intravenous, Administer over 4 Hours, EVERY 1 HOUR PRN, 2 doses, Starting on 10/19/20 at 1421, Until 10/19/20 at 2242, For sheath removal, May repeat once while in Cath Recovery Unit. , Cath (Recovery-Hospital Unit), Routine midazolam (pf) (Versed) (1 mg/mL) multi-dose injection ONCE PRN, Starting on 10/19/20 at 1354, Until 10/19/20 at 2242, Cath (Intra-Procedure), Routine 1354 (Given - Provid er: Matilde John RN) nitroGLYcerin (Nitrostat) disintegrating tablet 0.4 mg 0.4 mg, Sublingual, EVERY 5 MIN PRN, Starting on e 10/19/20 at 1421, Until 10/19/20 at 2242, Chest pain, May repeat every [...] Zaragoza) documented in this encounter Care Teams Garden Equipment Mechanic Relationship Specialty Start Date End Date Андрей Coello MD [address] [place] [address] PCP - General 12/05/16 documented as of this encounter
--- OUTSIDE RECORDS SUMMARY | 2024-03-05 10:40 | XMS_ITS | Encounter Summary ---
Author Organization [facility] [place] [address] Care Team Providers Care Tradeshow Worker Name Role Phone Андрей Coello MD Primary Care Provider [phone] Reason for Visit * Speech Therapy (Routine) - Authorized Specialty Diagnoses / Procedures Referred By Chin helm Referred To Contact Speech Pathology / Speech Therapy Diagnoses Aphasia RFV aphasia Ronnie Jamil MD [address] [address] [place] [address] [facility] [place] [address] Referral ID Status Reason Start Date Expiration Date Visits Requested Visits Authorized [id number] Authorized Evaluate and Treat 11/22/2023 11/21/2024 100 100 Encounter Details Date Type Department Care Team (Latest Contact Info) Description 01/31/2024 9:00 AM EDT Office [place] [address] Ananya Torres, CIS COORDINATOR Cognitive communication deficit Social History Tobacco Use Types Packs/Day Years Used Date Smoking Tobacco: Former Cigarettes Q uit: 10/09/2010 Smokeless Tobacco: Never Sex and Gender Information Value Date Recorded Sex Assigned at Not on file Gender Identity Not on file Sexual Orientation Not on file documented as of this encounter Miscellaneous Notes * Initial Evaluation - Ananya Torres, CIS COORDINATOR - 01/31/2024 9:00 AM EDT Xdgavd-Uizsbkpf-Nuheabowk Evaluation Patient Name: Elias Isaacs Pennington Date of : 1960 Referring MD: Ronnie Jamil Date Seen by MD: 11/22/2023 Diagnosis: Cognitive-Communication Disorder Date of Onset: 2022 Date of Evaluation: 01/31/2024 Total Treatment Time: 84 minutes Certification Period: 01/31/2024 - 04/29/2024 Total Timed Code Treatment: 0 minutes Patient Profile: Elias Pennington is a 63 y.o. RIGHT hand dominant male who was seen on 01/31/2024 for an Outpatient Ozqzyn-Xbuqsvdl-Hdrmvqgpe Evaluation. PMHx is significant for [place] [facility] [place] HLD, HTN, DMII (HbA1c unclear at this time), lumbar spinal stenosis, WILLIS on CPAP, and MDD. He was referred by Ronnie Jamil with a diagnosis of transient expressive aphasia, c/f TIA vs underlying seizure. MRI Angiogram Head wo Contrast is scheduled for 03/26/2024 with radiology as further work-up of these symptoms. Prior Cognitive-Linguistic Function: Per chart review, Elias was seen by Ronnie Jamil on 11/22/2023.According to his note, 8-10 months ago --> Was at store with sister, said Hi to her, then began stuttering really bad. Knew what he wanted to say, but had a hard time getting it out, but it eventually did. Occurred a few times that day. Been a while since it happened again, was a shortstutter. Lasted approx 20-30 seconds at the time. 3 weeks ago in 10/2023. Was standing in his houseat the time, talking to his brother. Overall, has occurred on 2 separate occasions. He endorses chronic fatigue, which he feels may be contributing. ... He reports feeling tired and drowsy constantly, which he feels may have been contributing. He endorses having a headache that was sore to the touch after some falls in the past. He endorses h/o concussion. Also endorses issues with swallowing food (intermittently gets stuck in throat) and drinking water -- feels like swallowing a baseball attimes. He reports that he feels his voice has also changed -- more rough/hoarse. He also reports SOB, particularly in the setting of physical activity -- shoveling has been difficult this part season, as well as climbing stairs. Reduced overall exercise tolerance. He has no documented history of CIS COORDINATOR intervention. Relevant Imaging: MRI Brain wo (completed 06/18/2023 at an outside hospital) IMPRESSION: There is no evidence of acute territorial infarct. Findings consistent with chronic microvascular ischemic disease. Per formal interview, Elias reports that he sometimes has difficulty getting a sentence out and that speaking takes a little more time. He has had episodes of transient aphasia 6-7 more times since he was seen by Dr. Jamil (Neurology) at the start of November 2023 and notes it's getting to be a little bit more. Elias informs this clinician that last winter he fell and messed up his shoulder, sprained his wrist, and had black and blue wrists. It appears he hit his head on the front left and noted a concussion that lasted for 3.5 weeks. He has persistent headaches at the top of his head, more towards the left than the right, and that they hurt to the touch. He also gets headaches behind his eyes which he attributes to chronic fatigue. Elias reports that his subjective stutter, slurred speech, word-finding difficulties, and memory concerns became more prevalent after his concussion, but that memory concerns have been persistent for the past 5-6 years. Elias states that his voice sounds normal today, but it gets rougher than usual quite a bit. He also endorses some trouble swallowing food, stating it gets stuck pointing to mid-sternal area. He drinks water which helps it go down. Some coughing while eating, but hasn't needed the heimlich. This happens 2-3 times per week. He consumes a regular diet at home. Reports he smokes marijuana at nighttime to help him sleep. 2-3 hits per night. Relevant Medical History: No past medical history on file. Medications: Current Outpatient Medications Medication Sig Dispense Refill aspirin 81 mg [...] 1 capsule by mouth Daily at Noon. gabapentin (NEURONTIN) 300 mg Capsule Take 300 mg by mouth daily. isosorbide dinitrate (ISORDIL) 30 mg Tablet Take 30 mg by mouth daily (after breakfast). empagliflozin (JARDIANCE) 25 mg Tablet Take 25 mg by mouth daily. omeprazole 20 mg Tablet, Delayed Release (E.C.) Take 20 mg by mouth. cholecalciferol, Vitamin D3, 1,000 unit Tablet Take by mouth daily. glipiZIDE (GLUCOTROL XL) 10 mg Tablet Extended Rel 24 hr Take 20 mg by mouth daily. atorvastatin (LIPITOR) 80 mg Tablet Take 40 mg by mouth daily. metFORMIN (GLUCOPHAGE) 500 mg Tablet Take 1,000 mg by mouth 2 times daily (with meals). levothyroxine (SYNTHROID) 25 mcg Tablet Take 25 mcg by mouth daily. PARoxetine (PAXIL) 30 mg tablet Take 30 mg by mouth every morning. aspirin 325 mg EC tablet Take 1 tablet by mouth daily. (Patient not taking: Reported on 11/22/2023) 30 tablet amlodipine (NORVASC) 10 mg tablet Take 10 mg by mouth daily. metoprolol tartrate (LOPRESSOR) 25 mg tablet Take 50 mg by mouth 2 times daily. Indications: hypertension nitroGLYcerin (NITROSTAT) 0.4 mg SL tablet 0.4mg, Sublingual, PRN No current facility-administered medications for this visit. Subjective: Elias was encountered in the outpatient rehab office, unaccompanied. He was pleasant and engaged throughout this session. Objective: Patient seen for evaluation today. Pain: Did not appear to be in acute distressed. Vision: Usually wears bifocals for reading, not present today Hearing: Hearing loss on LEFT, unaided Speech and Voice: Mildly hoarse vocal quality present that Elias endorsed was baseline. No dysarthria noted. Oral / Laryngeal Mechanism Clinical Assessment: WFL Impaired Comments STRUCTURES Facial Symmetry X Lips X Tongue X Jaw X Palate/Velum X Dentition X poor dental hygiene OTHER Phonation X Intelligibility X 100%, no dysarthria Volitional Cough X Sensation X Per pt report Secretion Management X Cognition and Language Evaluation: Patient's cognitive-linguistic status was assessed using the following standardized batteries. Western Aphasia Battery-Revised The WAB-R evaluates: Spontaneous Speech for Content and Fluency; Auditory Verbal Comprehension; Repetition; Naming and Word Finding. An Aphasia Quotient (AQ) is generated to determine WAB-R Aphasia Classification. Spontaneous Speech: Information Content: 10/10 Fluency, Grammatical Competence, and Paraphasias: 05/01 Spontaneous Speech Total: Spontaneous Speech Score: / (Use to calculate AQ) Auditory Verbal Comprehension: Yes/No Questions: 60/60 Auditory Word Comprehension: 59/60 Sequential Commands: 80/80 Auditory Verbal Comprehension Total: 199/200 Auditory Verbal Comprehension Score: 9.95/10 (Use to calculate AQ) Repetition: Repetition Total: 96/100 Repetition Score: 9.6/10 (Use to calculate AQ) Naming and Word Finding: Object Namin60 Word Fluency: Sentence Completion: 05/01 Responsive Speech: 05/01 Naming and Word Finding Total: 93/100 Naming and Word Finding Score: 9.3/10 (Use to calculate AQ) AQ: 97.7 The patient may be considered normal or nonaphasic if the AQ is 93.8 or above (Shiraz, 2006). Scales of Cognitive and Communicative Ability for Neurorehabilitation (SCCAN) The SCCAN is a standardized assessment that tests various cognitive and communicative domains: oralexpression, orientation, memory, speech comprehension, reading comprehension, writing, attention, and problem solving. A total raw score is obtained to classify the SCCAN Degree of Severity which is t ypical functioning, mild impairment, moderate impairment, or severe impairment. Oral Expression: = 95% Orientation: 07/03 = 100% Memory: = 74% - mild Speech Comprehension: 06/04 = 85% - mild Reading Comprehension: 05/03 = 83% - mild Writin/7 = 86% - mild Attention: 07/07 = 75% - mild Problem Solvin/23 = 70% - mild Total Raw Score: 79 SCCAN Degree of Severity Typical Functioning Mild Impairment Moderate Impairment Severe Impairment 87-94 69-86 47-68 0-46 Patient Reported Outcome Measures: The Communicative Participation Item Bank - General Short Form The CPIB (Lan et al., 2013) is a validated patient-reported outcomes measure of communicative participation for adults. It contains 10 items to assess how one's communication difficulties interfere with participation in a variety of situations and yields a total summary score out of 30, with higher scores being more favorable and indicating less interference in participation. For each item, the patient is instructed to rate how their condition impacts their participation on a scale of 0-3 (0= very much, 1 = quite a bit, 2 = a little, 3 = not at all). Pt's responses are summarized below: # of items rated as a 0 (very much) = 0/10 # of items rated as a 1 (quite a bit) = 2/10 # of items rated as a 2 (a little) = 5/10 # of items rated as a 3 (not at all) = 3/10 Summary Score: Does your condition interfere with??? Response Comments ???talking with people you know? 2- a little ???communicating when you need to say something quickly? 1- quite a bit ???talking with people you do NOT know? 2- a little ???communicating when you are out in your community (e.g., errands; appointments)? 2- a little ???asking questions in a conversation? 3- not at all ???communicating in a small group of people? 2- a little That kind of messes with my mind when people are talking at the same time. ???having a long conversation with someone you know about a book, movie, show, or sports event? 3- not at all ???giving someone DETAILED information? 1- quite a bit ???getting your turn in a fast-moving conversation? 2- a little ???trying to persuade a friend or family member to see a different point of view? 3- not at all Everyday Memory Questionnaire - Revised The Everyday Memory Questionnaire (EMQ; Paul & Dallas, 2007) is a valid and reliable 13-item tool assessing impact of memory difficulties participation in everyday memory tasks; intended for pts with brain injury or other neurological impairments. Pt rates each question based on how frequently they experienced the prompt in the past month. Responses are as follows: A- Once or less in the last month; B- More than once a month but less than once a week; C- About once a week; D- More than once a week or less than once a day; E- Once or more in a day. # of items rated as A (Once or less in the last month) = 1/13 # of items rated as B (More than once a month but less than once a week) = 0/13 # of items rated as C (About once a week) = 3/13 # of items rated as D (More than once a week or less than once a day) = 5/13 # of items rated as E (Once or more in a day)= 4/13 Prompt Response Comments Having to check whether you have done something that you should have done. E Forgetting when it was that something happened; for example, whether it was yesterday or last week.D Forgetting that you were told something yesterday or a few days ago, and maybe having to be reminded about it. E Starting to read something (a book or an article in a newspaper, or a magazine) without realizing you have already read it before. A I don't do a lot of reading. Finding that a word is ???on the tip of your tongue???. You know what it is but cannot quite find it. E Completely forgetting to do things you said you would do, and things you planned to do. D Forgetting important details of what you did or what happened to you the day before. D When talking to someone, forgetting what you have just said. Maybe saying ???what was I talking about? C When reading a newspaper or magazine, being unable to follow the thread of a story; losing track ofwhat it is about. D Forgetting to tell somebody something important, perhaps forgetting to pass on a message or remind someone of something. D Getting the details of what someone told you mixed up and confused. C Forgetting where things are normally kept or looking for them in the wrong place. E Repeating to someone what you have just told them or asking someone the same question twice. C Swallow Screen: Bolus Presentation(s): Thin liquid via cup Regular solid Oral Preparatory Phase: Adequate labial seal around cup rim without anterior spillage. Timely and efficient rotary chewing was appreciated. No oral stasis. Pharyngeal Phase: Patient tolerated all trials without overt s/sx of aspiration. No observation of coughing/throat clearing. Clear vocal quality immediately after the swallow. Esophageal Phase: Stated it went down hard a little bit there and pointed to mid sternal region. Utilized a liquid wash. Otherwise, no reported sensations of globus, reflux, post-prandial belching, or nausea following PO trials. Education: Elias Pennington has been educated on role of the CIS COORDINATOR, overview of the rehab program, and general results and recommendations / plan of care moving forward and verbalized understanding/agreement. At the end of the session he denied outstanding questions or concerns. Assessment: Elias Pennington was seen on 01/31/2024 for an outpatient cognitive- linguistic evaluation. Results of standardized assessment, formal interview, and patient reported outcome measures reveal a mild cognitive-communication disorder characterized by mild difficulties in the domains of memory, speech comprehension, reading comprehension, writing, attention, and problem solving. While he had one instance of dysfluency characterized by a sound prolongation and two instances of word-finding difficulties at the conversational level, he scored 97.7 on the WAB-R indicating no concern for aphasiaat this time. Voice was generally effective without significant worsening of quality across the near ly two hour session. It is important to note that his subjective stutter, slurred speech, word- finding difficulties, andmemory concerns became more prevalent after his concussion. However, that would not explain the reportedly progressive nature of his cognitive-linguistic symptoms or the fact that amnesia was documented as far back as 2018. Per chart review, Dr. Jamil has ordered a series of tests including a repeat MRI which will hopefully shed additional light on an etiology of this symptoms and help inform theplan of care moving forward. During this session, a swallow screen was completed suspicious for esophageal phase dysphagia. Per chart review, Elias does have a history of GERD and nonulcer dyspepsia. It is unclear if these symptoms have worsened. If these symptoms persist or worsen, further work-up may be indicated. Recommend participation in skilled CIS COORDINATOR services to further train compensatory strategies to bypass current cognitive-linguistic dysfunctions, target the gnosticism of prior level of functioning, andaid in [...] you put somethingdown Association: linking old information (longterm memory) with new information such as taking medicine with breakfast External memory strategies: Write things down in a planner chief or on a calendar Set timers or [...] mind??? I'll ask you later.?? Adapted from: [email or web address]/ Patient would benefit from continued CIS COORDINATOR services. Short Term Goals: - Patient will teach back compensatory language strategies with 100% accuracy given minimal cueing. - Patient will teach back compensatory cognitive-linguistic strategies with 100% accuracy given minimal cueing. - Patient will use trained clrzoh-rnlyoinz-ulpnwqqwm strategies to complete a functional task with [...] of Semantic Feature Analysis given minimal cueing. Alf Goal(s): - Patient will independently demonstrate compensatory and support strategies to improve cognitive-communicative effectiveness in the current living, community, and work environments. Plan: - Recommend skilled CIS COORDINATOR services for 1x per week, every other [...] any questions or concerns. Ananya Torres, MS, [facility])-CIS COORDINATOR Speech-Language Pathologist Pager # [phone] documented in this encounter Plan of Treatment Upcoming Encounters Date Type Department Care Team (Late st Contact Info) Description 03/11/2024 8:00 AM EDT Office [place] [address] Ananya Torres, CIS COORDINATOR 03/26/2024 9:00 AM EDT Appointment Non-[place] [address] Ronnie Jamil MD [address] [address] [place] [address] 03/26/2024 11:30 [place] [address] Ronnie Jamil MD [address] [place] [address] [place] [address] 03/26/2024 2:30 PM EDT Appointment [place] [address] 03/26/2024 4:30 PM EDT [place] [address] Ronnie Jamil MD [address] [place] [address] [place] [address] 04/01/2024 8:00 AM EDT Office [place] [address] Ananya Torres, CIS COORDINATOR 04/15/2024 8:00 AM EDT Office [place] [address] Ananya Torres, CIS COORDINATOR 04/29/2024 8:00 AM EDT Office [place] [address] Ananya Torres, CIS COORDINATOR documented as of this encounter Procedures Procedure Name Priority Date/Time Associated Diagnosis Comments CIS COORDINATOR PLAN OF CARE CERT/RE-CERT Routine 01/31/2024 4:22 PM EDT Cognitive communication deficit documented in this encounter Visit Diagnoses Diagnosis Cognitive communication deficit documented in this encounter Care Teams Tradeshow Worker Relationship Specialty Start Date End Date Андрей Coello MD [address] [place] [address] PCP - General 12/05/16 documented as of this encounter
--- OUTSIDE RECORDS SUMMARY | 2024-03-05 10:40 | XMS_ITS | Encounter Summary ---
[place] [address] Care Team Providers Care Food Service Aide Name Role Phone Андрей Coello MD Primary Care Provider [phone] Encounter Details Date Type Department Care Team (Latest Contact Info) Description 01/31/2024 Travel Social History Tobacco Use Types Packs/Day [...] AM EDT Office [place] [address] Ananya Torres, MINGLE OPERATOR 03/26/2024 9:00 AM EDT Appointment Non[place] [address] Ronnie Jamil MD [address] [place] [address] [place] [address] 03/26/2024 11:30 [place] [address] Ronnie Jamil MD [address] [place] [address] [place] [address] 03/26/2024 2:30 PM EDT Appointment [place] [address] 03/26/2024 4:30 PM EDT [place] [address] Ronnie Jamil MD [address] [place] [address] [place] [address] 04/01/2024 8:00 AM EDT Office [place] [address] Ananya Torres, MINGLE OPERATOR 04/15/2024 8:00 AM EDT Office [place] [address] Ananya Torres, MINGLE OPERATOR 04/29/2024 8:00 AM EDT Office [place] [address] Ananya Torres, MINGLE OPERATOR documented as of this encounter Visit Diagnoses Not on filedocumented in this encounter Care Teams Food Service Aide Relationship Specialty Start Date End Date Андрей Coello MD [address] [place] [address] [place] [address] PCP - General 12/05/16 documented as of this encounter
--- OUTSIDE RECORDS SUMMARY | 2024-03-05 10:40 | XMS_ITS | Encounter Summary ---
Author Organization [facility] [place] [address] Care Team Providers Care Human Services Care Specialist Name Role Phone Андрей Coello MD Primary Care Provider Encounter Details Date Type Department Care Team (Late Contact Info) Description 10/03/2023 12:10 AM EDT Ancillary Procedure [place] [phone] Андрей Coello MD [address] [place] [address] [place] [address] Social History Tobacco Use Types Packs/Day [...] AM EDT Office [place] [address] Ananya Torres, COMMERCIAL PILOT 03/26/2024 9:00 AM EDT Appointment Non-Invasive [place] [address] Ronnie Jamil MD [address] [place] [address] [place] [address] 03/26/2024 11:30 AM EDT [place] [address] Ronnie Jamil MD [address] [address] [place] [address] 03/26/2024 2:30 PM EDT Appointment [place] [address] 03/26/2024 4:30 PM EDT Office [place] [address] Ronnie Jamil MD [address] [address] [place] [address] 04/01/2024 8:00 AM EDT Office [place] [address] Ananya Torres, COMMERCIAL PILOT 04/15/2024 8:00 AM EDT Office [place] [address] Ananya Torres, COMMERCIAL PILOT 04/29/2024 8:00 AM EDT Office [place] [address] Ananya Torres, COMMERCIAL PILOT documented as of this encounter Procedures Procedure Name Priority Date/Time Associated Diagnosis Comments FILM LIBRARY STORAGE ONLY CT CHEST Routine 10/03/2023 12:10 AM EDT documented in this encounter Results * Film Library- Storage Only CT Chest (10/03/2023 12:10 AM EDT) Narrative [facility] [place] - 12/03/2023 4:32 PM EDT This exam is auto-finalizing. It's purpose is for storage only. Андрей Coello MD G FILM LIBRARY ORD ERABLES [place], [place] documented in this encounter Visit Diagnoses Not on filedocumented in this encounter Care Teams Human Services Care Specialist Relationship Specialty Start Date End Date Андрей Coello MD [address] [place] [address] PCP - General 12/05/16 documented as of this encounter
--- OUTSIDE RECORDS SUMMARY | 2024-03-05 10:40 | XMS_ITS | Encounter Summary ---
Author Organization [facility] [place] [address] Care Team Providers Care Cash Analyst Name Role Phone Андрей Coello MD Primary Care Provider [phone] Encounter Details Date Type Department Care Team (Late Contact Info) Description 10/03/2023 12:05 AM EDT Ancillary Procedure [place] [phone] Андрей Coello MD [address] [place] [address] [place] [address] Social History Tobacco Use Types [...] AM EDT Office [place] [address] Ananya Torres, AIR BRAKE WORKER 03/26/2024 9:00 AM EDT Appointment Non[place] [address] Ronnie Jamil MD [address] [place] [address] [place] [address] 03/26/2024 11:30 [place] [address] Ronnie Jamil MD [address] [address] [place] [address] 03/26/2024 2:30 PM EDT [place]oint[place] [address] 03/26/2024 4:30 PM EDT [place] [address] Ronnie Jamil MD [address] [address] [place] [address] 04/01/2024 8:00 AM EDT Office [place] [address] Ananya Torres, AIR BRAKE WORKER 04/15/2024 8:00 AM EDT Office [place] [address] Ananya Torres, AIR BRAKE WORKER 04/29/2024 8:00 AM EDT Office [place] [address] Ananya Torres, AIR BRAKE WORKER documented as of this encounter Procedures Procedure Name Priority Date/Time Associated Diagnosis Comments FILM LIBRARY STORAGE ONLY CT CHEST Routine 10/03/2023 12:05 AM EDT documented in this encounter Results * Film Library- Storage Only CT Chest (10/03/2023 12:05 AM EDT) Narrative [facility] - 12/03/2023 4:32 PM EDT This exam is auto-finalizing. It's purpose is for storage only. Андрей Coello MD G FILM LIBRARY ORD ERABLES [place], [place] documented in this encounter Visit Diagnoses Not on filedocumented in this encounter Care Teams Cash Analyst Relationship Specialty Start Date End Date Андрей Coello MD [address] [place] [address] PCP - General 12/05/16 documented as of this encounter
--- OUTSIDE RECORDS SUMMARY | 2024-03-05 10:41 | XMS_ITS | Encounter Summary ---
Author Organization [facility] Address [facility] [place] [address] Care Team Providers Care Toll Line Inspector Name Role Phone Андрей Espinoza MD Primary Care Provider [phone] Encounter Details Date Type Department Care Team (Late st Contact Info) Description 02/18/2014 Orders Only [place] [address] Jay Valadez MD [facility] [place] [address] Social History Tobacco Use Types Packs/Day Years Used Date Smoking Tobacco: Former Cigarettes Q uit: 10/09/2010 Sex and Gender Information Value Date Recorded Sex Assigned at Not on file Gender Identity Not on file Sexual Orientation Not on file documented as of this encounter Plan of Treatment Upcoming Encounters Date Type Department Care Team (Late st Contact Info) Description 03/11/2024 8:00 AM EDT Office Visit [place] [address] Ananya Torres, ASTROBIOLOGIST 03/26/2024 9:00 AM EDT Appointment Non-[place] [address] Ronnie Jamil MD [address] [place] [address] [place] [address] 03/26/2024 11:30 AM EDT [place] [address] Ronnie Jamil MD [address] [address] [place] [address] 03/26/2024 2:30 PM EDT Appointment [place] [address] 03/26/2024 4:30 PM EDT Office [place] [address] Ronnie Jamil MD [address] [address] [place] [address] 04/01/2024 8:00 AM EDT Office Visit [place] [address] Ananya Torres, ASTROBIOLOGIST 04/15/2024 8:00 AM EDT Office Visit [place] [address] Ananya Torres, ASTROBIOLOGIST 04/29/2024 8:00 AM EDT Office Visit [place] [address] Ananya Torres, ASTROBIOLOGIST documented as of this encounter Procedures Procedure Name Priority Date/Time Associated Diagnosis Comments FILM LIBRARY STORAGE ONLY MR SPINE Routine 02/18/2014 3:11 PM EDT documented in this encounter Results * Film Library- Storage only MR Spine (02/18/2014 3:11 PM EDT) Anatomical Region Laterality Modality Other 02/18/2014 3:11 PM EDT Narrative 06/03/2014 3:11 PM EST This is a Non-reportable exam Procedure Note GINA, UNSIGNED REPORT - 06/03/2014 This is a Non-reportable exam Jay Valadez MD G FILM LIBRARY ORD ERABLES documented in this encounter Visit Diagnoses Not on filedocumented in this encounter Care Teams Toll Line Inspector Relationship Specialty Start Date End Date Андрей Espinoza MD PCP - General 06/14/10 10/19/14 documented as of this encounter
--- OUTSIDE RECORDS SUMMARY | 2024-03-05 10:41 | XMS_ITS | Encounter Summary ---
Author Organization [facility] Address [facility] [place] [address] Care Team Providers Care Chief Console Operator Name Role Phone Sammy Thompson MD Primary Care Provider [phone] Encounter Details Date Type Department Care Team (Late st Contact Info) Description 04/07/2011 8:00 AM EDT - 04/07/2011 9:00 AM [place] [address] Elias Chapa MD [facility] [place] [address] CARDIAC CATHETERIZATION Social History Tobacco Use Types Packs/Day Years Used Date Smoking Tobacco: Former Cigarettes Q uit: 10/09/2010 Sex and Gender Information Value Date Recorded Sex Assigned at Not on file Gender Identity Not on file Sexual Orientation Not on file documented as of this encounter Last Filed Vital Signs Vital Sign Reading Time Taken Comments Blood Pressure 149/90 04/07/2011 6:52 AM EDT Pulse 69 04/07/2011 6:52 AM EDT Temperature 37 ??C (98.6 ??F) 04/07/2011 6:52 AM EDT Respiratory Rate - - Oxygen Saturation 98% 04/07/2011 6:52 AM EDT Inhaled Oxygen Concentration - - Weight 127 kg (280 lb) 04/07/2011 6:52 AM EDT Height 182.9 cm (6') 04/07/2011 6:52 AM EDT Body Mass Index 36.3 04/07/2011 6:52 AM EDT documented in this encounter Discharge Instructions * Attachments The following attachments cannot be sent through Care Everywhere. * CARDIAC CATHETERIZATION: AFTER YOUR VISIT (CAMEROONIAN) documented in this encounter Medications at Time of Discharge Medication Sig Dispensed Refills Start Date End Date metoprolol tartrate (LOPRESSOR) 25 mg tabletIndications :hypertension Take 50 mg by mouth 2 times daily. Indications: hypertension nitroGLYcerin (NITROSTAT) 0.4 mg SL tablet 0.4mg, Sublingual, PRN 05/15/2005 aspirin 325 mg EC tablet Take 1 tablet by mouth daily. 30 tablet 04/08/2011 amlodipine (NORVASC) 10 mg tablet Take 10 mg by mouth daily. pravastatin (PRAVACHOL) 40 mg tabletIndications :hypertriglycerid emia Take 40 mg by mouth daily. Indications: Hypertriglyceridemia 01/25/2017 documented as of this encounter Progress Notes * Odilon Peña RN - 04/08/2011 12:33 PM EDT Ambulated without c/o chest discomfort.R groin slightly sore. Nuclear Medicine Tech here to see and discharge. Dc to home orders written. Dc info reviewed including meds. Plavix prescription arranged by joseph [place] [facility].Does not want to participate in outpatient cardiac rehab. Comfortable with dc ,discharged/ * Дмитрий North MSW - 04/08/2011 10:02 AM EDT Office of Care Management Social Work Varnish Inspector Note Relevant Information: JOSEPH paged by [facility] Sat am, as pt is being dc'd on Plavix, says he has no $. I met w/pt, who says he has Cigna rx coverage, but cannot afford copay, as he is out of work and just filled all his other rx before coming to [facility]. Pt's is coming to pick him up today. Assessment: I noted [facility] can either cover cost of Cigna copay or the month's Plavix; Pt is expected to be on Plavix just 30 days, per Cardi. Plan: I asked pt to have rx card run by [facility], and I spoke with Pharmacy. [facility] will cover cost of Plavix (185.74) or copay, which would be less. * Odilon Peña RN - 04/08/2011 7:56 AM EDT Up in chair watching tv. Comfortable. R groin site negative. * Veronica Allen RN - 04/07/2011 10:35 PM EDT Patient with continued post-cath chest pain (releived when lying flat). EKG done and tylenol given per previous nurse. Patient states the tylenol helped but its not all the way gone Dr Saldañaware of continued chest pain. Maalox given with relief. * Carolynn Matson RN - 04/07/2011 3:25 PM EDT Elias Pennington was seen today by Cardiac Rehabilitation for: Pt admitted thru SD s/p PCI. Gave pt information packet and phase 2 cardiac rehab information. He participated in Phase 2 in 2003 s/p PCI in [facility] but would like to join again. RN will ambulate pt once he is off bedrest. See notes for activity details. Participation to the outpatient cardiac rehabilitation program at [facility] was discussed. A referral will be sent to the program and the patient will be contacted within 2 weeks. documented in this encounter H&P Notes * Elias Chapa MD - 04/07/2011 10:21 AM EDT Elias Ferny Whelane [id number] 04/07/2010 51 y.o. Admission History and Physical PCP: SAMMY THOMPSON MD Referring: Chriss Peña Date of Referral: 03/31/2011 I performed a history and physical exam of the patient and discussed the management of this patientwith Dr. Chapa. Admission Diagnosis: Status post PCI to the mid RCA with a 3.5 x 18 Vision BMS. Date of Evaluation: 04/07/2011 Date of Admission: 04/07/2011 Problem List: HPI: This 51 y.o. male is admitted with a chief complaint of chest pain with minimal exertion. Patient had a stress test which was positive for inferior ischemia. . Patient was therefore brought to [facility] for [facility] possible PCI. Catheterization revealed a long 60% stenosis in the mid RCA. Patient did not wish to take plavix for a long duration and the vessel is of large caliber therefore a 3.5 x 18 mm Vision was deployed. The RCA was post dilated with a 4.0 x 15 NC apex post dilation balloon. I have reviewed the available records, interviewed and examined the patient. This patient is admitted post PCI for IV hydration, pain management, access site management in the setting of anticoagulation, serial cardiac biomarker monitoring, telemetry monitoring, evaluation oftheir medical condition, and cardiac rehabilitation. ROS/PMHx/Fam Hx/Soc Hx: Reviewed, see outpatient note. Physical Exam: Vital signs: BP 149/90 Pulse 69 Temp(Src) 37 ??C (98.6 ??F) (Tympanic) Ht 182.9 cm (6') Wt 127.007 kg (280 lb) BMI 37.97 kg/m2 SpO2 98% Physical Exam Constitutional: He is oriented to person, place, and time. He appears well- developed and well-nourished. HENT: Head: Normocephalic and atraumatic. Eyes: EOM are normal. Pupils are equal, round, and reactive to light. Neck: Neck supple. No JVD present. Cardiovascular: Normal rate, regular rhythm, normal heart sounds and intact distal pulses. Exam reveals no gallop and no friction rub. No murmur heard. Pulmonary/Chest: Effort normal and breath sounds normal. No respiratory distress. Abdominal: Soft. Bowel sounds are normal. He exhibits no distension. Musculoskeletal: Normal range of motion. Neurological: He is alert and oriented to person, place, and time. Skin: Skin is warm and dry. Psychiatric: He has a normal mood and affect. His behavior is normal. Telemetry: Sinus rhythm with a heart rate of 70 bpm Assessment: 1. Status post PCI to the RCA with a Vision 3.5 x 18 BMS. 2. Recommend plavix for 1-3 months and aspirin indefinately Plan: 1. The working diagnosis and plan of management was reviewed with the patient, available family, and the house staff. 2. Questions were addressed. 3. Admit for IV hydration, serial cardiac enzymes, access site management, cardiac rehabilitation, asa and clopidogrel per protocol. The majority of my unit/floor time was spent counseling, and coordinating care for the patient regarding the diagnosis, diagnostic and therapeutic treatment plan. JAIMIE CORRIGAN MD Cardiology Staff Note: I interviewed and examined the patient. He was referred by Dr. Peña with life style limiting/disabling angina and inferior ischemia by MPI. Coronary angiography today demonstrated patent stents proximal and mid RCA and new moderate stenosis M2 segment of RCA that was stented with BMS and post dilated to >4.0 mm. We reviewed CHANELL vs BMS and he requested BMS to limit clopidogrel exposure due to side effects. He is admitted for observation and monitoring post PCI. I reviewed the findings andplan including need for clopidogrel 75 mg daily for minimum of 1-3 months and aspirin indefinitely with the patient and his family including his and sister. * Jaimie Corrigan MD - 04/07/2011 8:31 AM EDT 24 Hour Update: Patient seen and Examined. Questions answered. Labs and Consent form verified. Patient currently has no chest pain and he has had no change in symptoms compared to H&P performed by Dr. Peña on 03/31/2011. documented in this encounter Procedure Notes * Provider, Scanning - 04/10/2011 2:43 PM EDTAssociated Order(s): SCAN DOC: CARDIAC CATH * Provider, Scanning - 04/10/2011 2:43 PM EDTAssociated Order(s): SCAN DOC: CARDIAC CATH * Provider, Scanning - 04/10/2011 11:38 AM EDTAssociated Order(s): SCAN DOC: IMPLANTABLE DEVICES * Provider, Scanning - 04/10/2011 10:03 AM EDTAssociated Order(s): SCAN DOC: CARDIOLOGIST documented in this encounter Miscellaneous Notes * Miscellaneous - Provider, Scanning - 04/10/2011 9:52 AM EDT * Discharge Summary - Elias Chapa MD - 04/08/2011 8:31 AM EDT Physician Discharge Summary Patient ID: Elias Pennington [id number] 51 y.o. 1960 Admit date: 04/07/2011 Discharge date and time: 04/08/2011 Attending Physician: Elias Chapa MD Admission Diagnoses: angina Discharge Diagnoses: ASCVD with stenting of the RCA (bare metal stent to 4.0 mm) Admission Condition: Angina Discharged Condition: Improved Indication for Admission: This 51 y.o. male is admitted with a chief complaint of chest pain with minimal exertion. Patient had a stress test which was positive for inferior ischemia. . Patient was therefore brought to [facility] for [facility] possible PCI. Catheterization revealed a long 60% stenosis in the mid RCA. Patient did not wish to take plavix for a long duration and the vessel is of large caliber therefore a 3.5 x 18 mm Vision was deployed. The RCA was post dilated with a 4.0 x 15 NC apex post dilation balloon. Findings/Intervention: Access via right femoral artery. LM: normal LAD: mild diffuse disease LCX: normal RCA: 60% long eccentric stenosis of the mid segment. Previous stents were widely patent. LVEDP: 13 mmhg LVEF: 65% Intervention: The RCA lesion was stented with a 3.5x18 mm stent Vision (BMS) and postdilated with a4.0 mm balloon. Hemostasis was obtained with Perclose. No complications occurred. Recent Results (from the past 24 hour(s)) CARDIAC ENZYMES Component Value Range ? ? Troponin-T <0.03 <=0.03 (ng/mL) ??? CK, Total 62 0 - 200 (unit/L) CBC (WITH DIFF) Component Value Range ??? WBC 6.3 4.0 - 10.0 (x10(3)/mcL) ??? RBC 4.94 4.63 - 6.08 (x10(6)/mcL) ??? Hemoglobin 14.1 13.7 - 17.5 (gm/dL) ??? Hematocrit 41.1 40.0 - 51.0 (%) ??? MCV 83.2 79.0 - 92.0 (fL) ??? MCH 28.5 25.6 - 32.2 (pg) ??? MCHC 34.3 32.0 - 36.5 (gm/dL) ??? Platelets 165 145 - 370 (x10(3)/mcL) ??? RDWSD 40.5 35.0 - 46.0 (fL) ??? RDWCV 13.4 10.9 - 14.4 (%) ??? MPV 9.7 9.0 - 12.0 (fL) CARDIAC ENZYMES Component Value Range ? ? Troponin-T <0.03 <=0.03 (ng/mL) ??? CK, Total 76 0 - 200 (unit/L) BMP W/FASTING GLUCOSE Component Value Range ??? Glucose Fasting 107 (*) 65 - 99 (mg/dL) ??? BUN 13 10 - 20 (mg/dL) ??? Creatinine 0.85 0.80 - 1.50 (mg/dL) ??? Sodium 140 135 - 145 (mmol/L) ??? Potassium 4.3 3.5 - 5.0 (mmol/L) ??? Chloride 104 98 - 107 (mmol/L) ??? CO2 32 (*) 22 - 31 (mmol/L) ??? Anion Gap 4 (*) 5 - 15 (mmol/L) ??? Calcium 9.1 8.5 - 10.5 (mg/dL) ? ? Estimated GFR >60 >=60 LIPID PANEL (FASTING) Component Value Range ? ? Chol, Total 139 <=199 (mg/dL) ? ? Triglycerides 114 <=149 (mg/dL) ? ? HDL 36 (*) >=40 (mg/dL) ? ? LDL Cholesterol 80 <=99 (mg/dL) ??? Chol/HDL Ratio 3.9 (ratio) REFLEX LAB-A-DIFF Component Value Range ??? Neutrophils % 55.7 34.0 - 71.0 (%) ??? Neutr Abs (ANC) 3.49 1.50 - 6.30 (x10(3)/mcL) ??? Lymphocytes % 32.1 19.0 - 53.0 (%) ??? Lymphocytes Abs 2.0 1.0 - 3.6 (x10(3)/mcL) ??? Monocytes % 10.1 4.0 - 13.0 (%) ??? Monocyte Abs 0.6 0.2 - 1.0 (x10(3)/mcL) ??? Eosinophils % 1.6 0.0 - 7.0 (%) ??? Eosinophils Abs 0.1 0.0 - 0.5 (x10(3)/mcL) ??? Basophils % 0.3 0.0 - 2.0 (%) ??? Basophils Abs 0.0 0.0 - 0.2 (x10(3)/mcL) ??? Immature Gran % 0.20 0.00 - 0.66 (%) ??? Juju Gran Abs 0.01 0.00 - 0.05 (x10(3)/mcL) Patient Instructions: Unchanged QUALITY AND RELIABILITY ENGINEER meds that are or will be resumed Medication Sig Dispense Refill ??? amlodipine (NORVASC) 10 mg tablet Take 10 mg by mouth daily. ??? pravastatin (PRAVACHOL) 40 mg tablet Take 40 mg by mouth daily. Indications: Hypertriglyceridemia ??? metoprolol tartrate (LOPRESSOR) 25 mg tablet Take 25 mg by mouth 2 times daily. Indications: Hypertension ??? nitroGLYcerin (NITROSTAT) 0.4 mg SL tablet 0.4mg, Sublingual, PRN New prescriptions Medication Sig Dispense Refill ??? aspirin 325 mg EC tablet Take 1 tablet by mouth daily. 30 tablet ??? clopidogrel (PLAVIX) 75 mg tablet Take 1 tablet by mouth daily. 30 tablet 0 QUALITY AND RELIABILITY ENGINEER meds that are DCed or will be DCed Medication Sig Dispense Refill ??? aspirin 81 mg EC tablet Take 81 mg by mouth daily. ??? amlodipine (NORVASC) 10 mg tablet Take 10 mg by mouth daily. Indications: Hypertension Discharge Instructions following percutaneous coronary intervention (coronary stent placement): Ideally, patients with coronary artery disease should be on the following medications: 1. Continue aspirin indefinitely 2. Beta cameron 3. Cholesterol lowering therapy 4. Nitroglycerin sl 5. NIGEL inhibitors 6. Clopidogrel 75 mg po daily for a minimum of 1-3 months, preferably one year Your medications are listed above. If you have any questions regarding your medications, please contact your health care provider. Anti-coagulation follow up: none Smoking cessation: If you are currently a smoker, you are strongly urged to stop smoking! Smoking increases the severity and incidence of heart disease, and is a risk factor for cancer and emphysema.Your healthcare provider can provide specific measures to assist you, including nicotine supplements, anti-anxiety meds, and support groups in your community. Call your doctor if: Chest pain, dyspnea, pain or swelling in legs occurs. Activity level: No heavy lifting (more than ten pounds) for 48 hours; no more than 25 pounds for two weeks. If you are working, you may return to work in one week, or as directed. Diet: Healthy heart (Low fat, low cholesterol, low sodium). Driving: No restrictions Shower/Bath: May shower; no tub bath for five days after catheterization. Wound Care: Wash with soap and water daily. Contact MD if redness, swelling, increased pain or drainage. Follow up Appointments: F/U with your PCP (Dr. Thompson) in 1-2 weeks, and your A/C Technician(Dr. Peña) in 4-6 weeks. Please contact each office to make or confirm your appointments! Home oxygen therapy: N/A Arrangements for VNA/home care: none Discharge Procedure Orders REFERRAL TO CARDIAC REHAB Referral Priority: Routine Referral Reason: Evaluate and Treat Number of Visits Requested: 1 Signed: RIAN HANDY 04/08/2011 8:33 AM * Miscellaneous - Provider, Scanning - 04/07/2011 7:42 AM EDT documented in this encounter Plan of Treatment Upcoming Encounters Date Type Department Care Team ([facility] st Contact Info) Description 03/11/2024 8:00 AM EDT Office [place] [phone] Ananya Torres SLP 03/26/2024 9:00 AM EDT Appointment Non-[place] [phone] Ronnie Jamil MD [address] [place] [address] [place] [address] 03/26/2024 11:30 AM ED[place] [address] Ronnie Jamil MD [address] [address] [place] [address] 03/26/2024 2:30 PM EDT Appointment [place] [address] 03/26/2024 4:30 PM EDT Office Visit Neurology at [facility] [place] [address] Ronnie Jamil MD [address] [address] [place] [address] 04/01/2024 8:00 AM EDT Office [place] [address] Ananya Torres, [employer] 04/15/2024 8:00 AM EDT Office [place] [address] Ananya Torres, [employer] 04/29/2024 8:00 AM EDT Office [place] [address] Ananya Torres, [employer] Scheduled Orders Name Type Priority Associated Diagnoses Orde r Schedule EKG 12 Lead ECG STAT CAD (coronary artery disease) One Time for 1 Occurrences starting 04/07/2011 until 04/07/2011 Scheduled Referrals Name Type Priority Associated Diagnoses Orde r Schedule REFERRAL TO CARDIAC REHAB Outpatient Referral Routine CAD (coronary artery disease) Ordered: 04/08/2011 documented as of this encounter Procedures Procedure Name Priority Date/Time Associated Diagnosis Comments CARDIAC CATH SCAN 04/10/2011 2:4 3 PM EDT CARDIAC CATH SCAN 04/10/2011 2:4 3 PM EDT IMPLANTABLE DEVICES SCAN 04/10/2011 11:38 AM EDT CARDIOLOGIST SCAN 04/10/2011 10:03 AM EDT BMP W/FASTING GLUCOSE Routine 04/08/2011 4:13 AM EDT DIFFERENTIAL, AUTOMATED Routine 04/08/20 11 4:13 AM EDT CARDIAC ENZYMES ([facility]) Routine 04/08/2011 4:13 AM EDT CBC (WITH DIFF) Routine 04/08/2011 4:13 AM EDT HEMOGLOBIN A1C Routine 04/08/2011 4:13 AM EDT LIPID PANEL (REFLEX DIRECT LDL) Routine 04/08/2011 4:13 AM EDT EKG 12-LEAD STAT 04/07/2011 7:09 PM EDT CAD (coronary artery disease) EKG 12-LEAD Routine 04/07/2011 10:38 AM EDT CAD (coronary artery disease) CARDIAC ENZYMES ([facility]) STAT 04/07/2011 10:02 AM EDT CARDIAC CATHETERIZATION 04/07/20 11 8:41 AM EDT angina documented in this encounter Results * SCAN DOC: CARDIAC CATH (04/10/2011 2:43 PM EDT) Anatomical Region Laterality Modality Other Narrative 04/11/2011 10:19 AM EDT Procedure Note Provider, Scanning - 04/10/2011 2:43 PM EDT Scanning Provider MEDIA MGR SCAN EXT O RDR/RSLT * SCAN DOC: CARDIAC CATH (04/10/2011 2:43 PM EDT) Anatomical Region Laterality Modality Other Narrative 04/11/2011 10:19 AM EDT Procedure Note Provider, Scanning - 04/10/2011 2:43 PM EDT Scanning Provider MEDIA MGR SCAN EXT O RDR/RSLT * SCAN DOC: IMPLANTABLE DEVICES (04/10/2011 11:38 AM EDT) Narrative 04/10/2011 11:38 AM EDT Procedure Note Provider, Scanning - 04/10/2011 11:38 AM EDT Scanning Provider MEDIA MGR SCAN EXT O RDR/RSLT * SCAN DOC: CARDIOLOGIST (04/10/2011 10:03 AM EDT) Anatomical Region Laterality Modality Other Narrative 04/10/2011 10:48 AM EDT Procedure Note Provider, Scanning - 04/10/2011 10:03 AM EDT Scanning Provider MEDIA MGR SCAN EXT O RDR/RSLT * REFLEX LAB-A-DIFF (04/08/2011 4:13 AM EDT) Neutrophil % 55.7 34.0 - 71.0 % CERNER MILLENNIUM Neutrophil Absolute 3.49 1.50 - 6.30 x10(3)/mcL CERNER MILLENNIUM Lymph % 32.1 19.0 - 53.0 % CERNER MILLENNIUM Lymphocytes Abs 2.0 1.0 - 3.6 x10(3)/mcL CERNER MILLENNIUM Monocyte % 10.1 4.0 - 13.0 % CERNER MILLENNIUM Monocyte Abs 0.6 0.2 - 1.0 x10(3)/mcL CERNER MILLENNIUM Eos % 1.6 0.0 - 7.0 % CERNER MILLENNIUM Eosinophils Abs 0.1 0.0 - 0.5 x10(3)/mcL CERNER MILLENNIUM Basophil % 0.3 0.0 - 2.0 % CERNER MILLENNIUM Baso Absolute 0.0 0.0 - 0.2 x10(3)/mcL CERNER MILLENNIUM Immature Gran % 0.20 0.00 - 0.66 % CERN[facility] MILLENNIUM Comment: Immature granulocytes(IG's)percentage and absolute count will include metamyelocytes, myelocytes, and promyelocytes. Blood smears from CBCs yielding IG's will be scanned manually for concordance. If this scan disagrees with the automated IG or if promyelocytes are noted, a manual differential will be performed. Immature Gran Absolute 0.01 0.00 - 0.05 x10(3)/mcL [facility] Blood specimen (specimen) 04/08/2011 4:13 AM EDT 04/08/2011 4:23 AM EDT Elias Chapa MD HEMATOLOGY ORDERABLE S [facility] * Hemoglobin A1c (04/08/2011 4:13 AM EDT) Hemoglobin A1c 5.7 4.3 - 6.1 % [facility] Estimated Average Glucose 117 mg/dL [facility] Comment: eAG equivalents for HbA1c percentages: HbA1c(%) ?eAG(mg/dL) 6.0 ?126 6.5 ?140 7.0 ?154 7.5 ?169 8.0 ?183 8.5 ?197 9.0 ?212 9.5 ?226 10.0 ? 240 Limitations: The eAG calculation has not been validated on women, individuals below 18 years old and above 70 years old, and individuals with hemoglobinopathies. Additional resources are available on the ADA website: ??http://professional.diabetes.org/glucosecalculator.aspx Reference: Ramakrishna BAZAN, Michelle J, Noemi R, et al. ??Translating the A1C assay into estimated average glucose values. ??Diabetes Care 2008:31(8):7471-0101. Blood specimen (specimen) 04/08/2011 4:13 AM EDT 04/08/2011 4:23 AM EDT Elias Chapa MD CHEMISTRY ORDERABLES Performing Organization Address [facility] de Phone Number LYNNE ROSENBAUM * Cardiac Enzymes (04/08/2011 4:13 AM EDT) Pathologist [facility] [place] Troponin-T <0.03 <=0.03 ng/mL [facility] Comment: 0.03 ng/mL: Represents the 99th percentile upper reference limit for normals. >0.03 ng/mL: Elevated cardiac troponin T level indicative of myocardial damage. Diagnosis of acute, evolving or recent TN requires a typical rise and gradual fall of cTnT with at least ONE of the following: a) Ischemic symptoms b) Development of pathologic Q waves on the ECG c) ECG changes indicative of eschemia (S-T segment elevation/depression) d) Coronary artery intervention Serial bloods should be obtained for testing on admission, at 6 to 9 hrs and again at 12 to 24 hrs if earlier samples are negative and the clinical index of suspicion is high. Reference: [Myocardial infarction redefined a consensus document of the Joint Society of Cardiology/[place] College of Cardiology Committee for the redefinition of myocardial infarction. Journal of the [place] College of Cardiology 2000; 36: 959-969] Creatine Kinase 76 0 - 200 unit/L [facility] Blood specimen (specimen) 04/08/2011 4:13 AM EDT 04/08/2011 4:23 AM EDT Elias Chapa MD CHEMISTRY ORDERABLES Performing Organization Address [facility] de Phone Number LYNNE ROSENBAUM * CBC (with Diff) (04/08/2011 4:13 AM EDT) Pathologist [facility] White Blood Cell 6.3 4.0 - 10.0 x10(3)/mcL [facility] Red Blood Cell 4.94 4.63 - 6.08 x10(6)/mcL CERNER MILLENNIUM Hemoglobin 14.1 13.7 - 17.5 gm/dL CERNER MILLENNIUM Hematocrit 41.1 40.0 - 51.0 % CERNER MILLENNIUM Mean Cell Volume 83.2 79.0 - 92.0 fL CERNER MILLENNIUM Mean Cell Hemoglobin 28.5 25.6 - 32.2 pg CERNER MILLENNIUM Mean Cell Hemoglobin Concentration 34.3 32.0 - 36.5 gm/dL CERNER MILLENNIUM Platelet 165 145 - 370 x10(3)/mcL CERNER MILLENNIUM RDW Standard Deviation 40.5 35.0 - 46.0 fL CERNER MILLENNIUM RDW coefficient of variation 13.4 10.9 - 14.4 % CERNER MILLENNIUM Mean Platelet Volume 9.7 9.0 - 12.0 fL [facility] MILLENNIUM Blood specimen (specimen) 04/08/2011 4:13 AM EDT 04/08/2011 4:23 AM EDT Elias Chapa MD HEMATOLOGY ORDERABLE S [facility] * (ABNORMAL) Lipid panel (fasting) (04/08/2011 4:13 AM EDT) Cholesterol, Total 139 <=199 mg/dL CERNER MILLENNIUM Comment: Recommendations of the NCEP Adult Treatment Panel for the following risk cutoff thresholds for the [place] population: Desirable: <200 mg/dL Borderline High: 200-239 mg/dL High: > or = 240 mg/dL Triglyceride 114 <=149 mg/dL [facility]ERN[facility] MILLENNIUM Comment: Reference Range: Normal triglycerides: ??<150 mg/dL Borderline high: ??150-199 mg/dL High: ??200-499 mg/dL Very high: ??>en=618 mg/dL XIOMARA 2001; 285(19):9795-3043 HDL Cholesterol 36(L) >=40 mg/dL [facility] MILLENNIUM Comment: Reference range: ??Low HDL: ?? < 40 mg/dL ??Normal: ?40-60 mg/dL ??Desirable: > 60 mg/dL XIOMARA 2001; 285(19):7934-6136 LDL Cholesterol 80 <=99 mg/dL [facility] Comment: Reference range: ?? Optimal: ?<100 mg/dL ?? Near Optimal/Above Optimal: ?? 100-129 mg/dL ?? Borderline high: ?130-159 mg/dL ?? High: ? 160-189 mg/dL ?? Very high: ?>sp=851 mg/dL XIOMARA 2001: 285(19):8960-4677 Cholesterol/HDL Ratio 3.9 ratio [facility] Comment: A Cholesterol to HDL ratio below 4:1 is desirable. ??Studies suggest that increased CAD risk occurs at ratios above 5 for females and above 6 for men. ? [place] [employer] ??(http://www.americanheart.org) ? Bev Int Med, 1994; 121:641 ? AM J Med, 1998; 105(1A):48S Blood specimen (specimen) 04/08/2011 4:13 AM EDT 04/08/2011 4:23 AM EDT Elias Chapa MD CHEMISTRY ORDERABLES [facility] * (ABNORMAL) BMP w/fasting Glucose (04/08/2011 4:13 AM EDT) Glucose Fasting 107(H) 65 - 99 mg/dL [facility] Comment: ?Fasting* Glucose Interpretive Criteria Normal ?65-99 [...] of Diabetes Mellitus, Position Statement from the [place] [employer]. ??Diabetes Care, Volume 33, Supplement 1, Jul 2009 Blood Urea Nitrogen 13 10 - 20 mg/dL CERNER MILLENNIUM Creatinine 0.85 0.80 - 1.50 mg/dL CERNER MILLENNIUM Sodium 140 135 - 145 mmol/L CERNER MILLENNIUM Potassium 4.3 3.5 - 5.0 mmol/L CERNER MILLENNIUM Comment: Please note: ??Patients with WBC >100,000 may have falsely elevated Potassium levels. ??For accurate Potassium quantification in these patients send serum separator tube (gold top) for subsequent determinations. ??Contact the Clinical Chemistry Laboratory if there are any questions. Chloride 104 98 - 107 mmol/L CERNER MILLENNIUM Carbon Dioxide 32(H) 22 - 31 mmol/L CERNER MILLENNIUM Anion Gap 4(L) 5 - 15 mmol/L CERNER MILLENNIUM Calcium 9.1 8.5 - 10.5 mg/dL CERNER MILLENNIUM Est Glomerular Filtration Rate >60 >=60 CERNER MILLENNIUM Comment: The National Kidney Disease Education Program (NKDEP) has recommended all laboratories report estimated GFR (eGFR) along with plasma creatinine measurements to assist you with recognition of early kidney disease. Caveats: ??Plasma creatinine should be at steady-state (unchanged within the past week). For patients multiply eGFR by 1.2.MDRD equation has not been validated for pediatric patients and is only valid for patients with age >= 18 years. At present, NKDEP does NOT recommend using the MDRD equation for drug dosing purposes and pharmacists should continue to use their current dosing methods. In addition, numerical eGFR values greater than 60 ml/min/1.73 square meters should be treated as > 60, and not an exact number due to greater inaccuracies at these higher values. Per NKDEP, they classify normal renal function as any GFR >60ml/min/1.73 square meters; chronic kidney disease when GFR <60, and renal failure when GFR <15. ??This calculation may not be valid for patients with atypical muscle mass (very lean or obese), acute renal failure, and in patients with diabetic kidney disease. References: http://nkdep.nih.gov/resources/NKDEP_Suggestn4Labs_0606_508.pdf http://www.kidney.org/professionals/kls/pdf/faq_gfr.pdf Blood specimen (specimen) 04/08/2011 4:13 AM EDT 04/08/2011 4:23 AM EDT Elias Chapa MD CHEMISTRY ORDERABLES Performing Organization Address [facility] Phone Number LYNNE ROSENBAUM * EKG 12 Lead (04/07/2011 7:09 PM EDT) Ventricular rate 63 BPM MUSE SYSTEM Atrial Rate 63 BPM MUSE SYSTEM P-R Interval 194 ms MUSE SYSTEM QRS Duration 88 ms MUSE SYSTEM Q-T Interval 398 ms MUSE SYSTEM QTC Calculated (Bezet) 407 ms MUSE SYSTEM Calculated P [place] 31 degrees MUSE SYSTEM Calculated R [place] 0 degrees MUSE SYSTEM Calculated T [place] 7 degrees MUSE SYSTEM INTERPRETATION Normal sinus rhythm Normal ECG When compared with ECG of 07-APR-2011 10:38, No significant change was found Confirmed by MD Celia, Mariano ([id number]) on 04/08/2011 7:23:03 AM MUSE SYSTEM 04/07/2011 7:09 PM EDT 04/08/2011 7:23 AM EDT Elias Chapa MD ECG ORDERABLES Performing Organization Address [facility] Phone Number MUSE SYSTEM * EKG 12 Lead (04/07/2011 10:38 AM EDT) Ventricular rate 63 BPM MUSE SYSTEM Atrial Rate 63 BPM MUSE SYSTEM P-R Interval 178 ms MUSE SYSTEM QRS Duration 88 ms MUSE SYSTEM Q-T Interval 398 ms MUSE SYSTEM QTC Calculated (Bezet) 407 ms MUSE SYSTEM Calculated P [place] 50 degrees MUSE SYSTEM Calculated R [place] 6 degrees MUSE SYSTEM Calculated T [place] 28 degrees MUSE SYSTEM INTERPRETATION Normal sinus rhythm Normal ECG When compared with ECG of 21-APR-2005 15:41, No significant change was found Confirmed by MD Moore Timothy ([id number]) on 04/07/2011 11:48:22 AM MUSE SYSTEM 04/07/2011 10:3 8 AM EDT 04/07/2011 11:48 AM EDT Elias Chapa MD ECG ORDERABLES Performing Organization Address [facility] [place] de Phone Number MUSE SYSTEM * Cardiac Enzymes (04/07/2011 10:02 AM EDT) Troponin-T <0.03 <=0.03 ng/mL LYNNE ROSENBAUM Comment: 0.03 ng/mL: Represents the 99th percentile upper reference limit for normals. >0.03 ng/mL: Elevated cardiac troponin T level indicative of myocardial damage. Diagnosis of acute, evolving or recent TN requires a typical rise and gradual fall of cTnT with at least ONE of the following: a) Ischemic symptoms b) Development of pathologic Q waves on the ECG c) ECG changes indicative of eschemia (S-T segment elevation/depression) d) Coronary artery intervention Serial bloods should be obtained for testing on admission, at 6 to 9 hrs and again at 12 to 24 hrs if earlier samples are negative and the clinical index of suspicion is high. Reference: [Myocardial infarction redefined a consensus document of the Joint Society of Cardiology/[place] [employer] Committee for the redefinition of myocardial infarction. Journal of the [place] [employer] 2000; 36: 959-969] Creatine Kinase 62 0 - 200 unit/L JAVIDJENNIFER MARIEYASMINEJUSTIN Blood specimen (specimen) 04/07/2011 10:02 AM EDT 04/07/2011 10:25 AM EDT Elias Chapa MD CHEMISTRY ORDERABLES Performing Organization Address [facility] [place] de Phone Number LYNNE ROSENBAUM documented in this encounter Visit Diagnoses Not on filedocumented in this encounter Administered Medications Inactive Administered Medications - up to 3 most recent administrations Medication Order MAR Action Action Date Dose Rate Site acetaminophen (TYLENOL) tablet 650 mg 650 mg, Oral, EVERY 6 HOURS PRN, Starting on 04/07/11 at 1234, Until 04/08/11 at 1422, Pain, Mild Pain, Maximum dose of acetaminophen is 4000 mg from all sources in 24 hours., Routine Given 04/07/2011 7:00 PM EDT 650 mg alum-mag hydroxide-simeth (MAALOX) 200-200-20 mg/5 mL oral suspension 10 mL 10 mL, Oral, 3 TIMES DAILY PRN, Starting on Sun04/07/11 at 1058, Until Sun04/08/11 at 1422, Heartburn, Routine Given 04/07/2011 8:22 PM EDT 10 mLs Given 04/07/2011 11:00 AM EDT mL alum-mag hydroxide-simeth (MAALOX) 200-200-20 mg/5 mL oral suspension 1 dose, Starting on Sun04/07/11 at 1056, Until Sun04/07/11 at 1100, YAMILET CAESAR: Cabinet Override amlodipine (NORVASC) tablet 10 mg 10 mg, Oral, DAILY, First dose on Sun04/07/11 at 1300, Until Discontinued, Routine Given 04/08/2011 9:00 AM EDT 10 mg Given 04/07/2011 6:08 PM EDT 10 mg aspirin EC tablet 325 mg 325 mg, Oral, DAILY, First dose on 04/08/11 at 0900, Until Discontinued, Routine Given 04/08/2011 9:00 AM EDT 325 mg atorvastatin (LIPITOR) tablet 10 mg 10 mg, Oral, EVERY EVENING, First dose on Sun04/07/11 at 1700, Until Discontinued, Therapeutic interchange from pravastatin per P&T policy, Routine Given 04/07/2011 5:00 PM EDT 10 mg bivalirudin (ANGIOMAX) 250 mg in sodium chloride 0.9% 50 mL infusion (MERCHANDISER SEASONAL) CONTINUOUS PRN, Starting on Sun04/07/11 at 0942, Until Sun04/07/11 at 1234, Cath (Intra-Procedure), Routine New Bag 04/07/2011 9:42 AM EDT 1.75 mg/kg/hr 44.5 mL/hr bivalirudin (ANGIOMAX) injection ONCE PRN, 1 dose, Starting on Sun04/07/11 at 0940, Until Sun04/07/11 at 0940, Intra-Operative (Intra-Procedure), Routine Given 04/07/2011 9:40 AM EDT 95.3 mg clopidogrel (PLAVIX) tablet 75 mg 75 mg, Oral, DAILY, First dose on 04/08/11 at 0900, Until Discontinued, Routine Given 04/08/2011 9:00 AM EDT 75 mg clopidogrel (PLAVIX) tablet ONCE PRN, 1 dose, Starting on Sun04/07/11 at 0939, Until Sun04/07/11 at 0939, Intra-Operative (Intra-Procedure), Routine Given 04/07/2011 9:39 AM EDT 600 mg diaZEPam (VALIUM) tablet 5 mg 5 mg, Oral, ONCE, 1 dose, On Sun04/07/11 at 0715, Cath (Day of Procedure), Routine Given 04/07/2011 8:34 AM EDT 5 mg diphenhydrAMINE (BENADRYL) tablet 25 mg 25 mg, Oral, ONCE, 1 dose, On Sun04/07/11 at 0715, Cath (Day of Procedure), Routine Given 04/07/2011 8:34 AM EDT 25 mg fentaNYL 50mcg/mL injection ONCE PRN, 1 dose, Starting on Sun04/07/11 at 0855, Until Sun04/07/11 at 0855, Pain, Intra-Operative (Intra-Procedure), Routine Given 04/07/2011 8:55 AM EDT 25 mcg fentaNYL 50mcg/mL injection ONCE PRN, 1 dose, Starting on Sun04/07/11 at 0912, Until Sun04/07/11 at 0912, Pain, Intra-Operative (Intra-Procedure), Routine Given 04/07/2011 9:12 AM EDT 25 mcg fentaNYL 50mcg/mL injection ONCE PRN, 1 dose, Starting on Sun04/07/11 at 0949, Until Sun04/07/11 at 0949, Pain, Intra-Operative (Intra-Procedure), Routine Given 04/07/2011 9:49 AM EDT 50 mcg heparin (porcine) injection ONCE PRN, 1 dose, Starting on Sun04/07/11 at 0915, Until Sun04/07/11 at 0915, Intra-Operative (Intra-Procedure), Routine Given 04/07/2011 9:15 AM EDT 2,000 Units iohexol (OMNIPAQUE) 350 mg/mL injection ONCE PRN, 1 dose, Starting on Sun04/07/11 at 1010, Until Sun04/07/11 at 1010, Per Protocol, Cath (Intra-Procedure), Routine Given 04/07/2011 10:10 AM EDT 170 mLs metoprolol tartrate (LOPRESSOR) tablet 25 mg 25 mg, Oral, 2 TIMES DAILY, First dose on Sun04/07/11 at 1300, Until Discontinued, Routine Given 04/08/2011 9:00 AM EDT 25 mg Given 04/07/2011 8:59 PM EDT 25 mg Given 04/07/2011 1:00 PM EDT 25 mg midazolam (VERSED) injection ONCE PRN, 1 dose, Starting on Sun04/07/11 at 0854, Until Sun04/07/11 at 0854, Sleep, EP (Intra-Procedure), Routine Given 04/07/2011 8:54 AM EDT 1 mg midazolam (VERSED) injection ONCE PRN, 1 dose, Starting on Sun04/07/11 at 0905, Until Sun04/07/11 at 0905, Sleep, EP (Intra-Procedure), Routine Given 04/07/2011 9:05 AM EDT 1 mg midazolam (VERSED) injection ONCE PRN, 1 dose, Starting on Sun04/07/11 at 0949, Until Sun04/07/11 at 0949, Sleep, EP (Intra-Procedure), Routine Given 04/07/2011 9:49 AM EDT 1 mg nitroGLYCerin 100 mcg/mL intracoronary dilution ONCE PRN, 1 dose, Starting on Sun04/07/11 at 0956, Until Sun04/07/11 at 0956, Cath (Intra-Procedure), Routine Given 04/07/2011 9:56 AM EDT 200 mcg nitroGLYCerin 100 mcg/mL intracoronary dilution ONCE PRN, 1 dose, Starting on Sun04/07/11 at 1002, Until Sun04/07/11 at 1002, Cath (Intra-Procedure), Routine Given 04/07/2011 10:02 AM EDT 200 mcg sodium chloride 0.9 % flush 5 mL 5 mL, Intravenous, EVERY 12 HOURS, First dose on Sun04/07/11 at 0715, Until Discontinued, Day of Surgery (Day of Procedure) Given by Other 04/07/2011 7:15 AM EDT 5 mLs sodium chloride 0.9% infusion 100 mL/hr, Intravenous, CONTINUOUS, Starting on Sun04/07/11 at 0715, Until Sun04/07/11 at 1234, Day of Surgery (Day of Procedure) New Bag 04/07/2011 7:20 AM EDT 100 mL/hr 100 mL/hr sodium chloride 0.9% infusion 100 mL/hr, Intravenous, CONTINUOUS, Starting on Sun04/07/11 at 1100, Until Sun04/07/11 at 2059 New Bag 04/07/2011 10:45 AM EDT 100 mL/hr 100 mL/hr sodium chloride injection ONCE PRN, 1 dose, Starting on Sun04/07/11 at 1000, Until Sun04/07/11 at 1000, Line Care, Intra-Operative (Intra-Procedure), Routine Given 04/07/2011 10:00 AM EDT 400 mLs documented in this encounter Active and Recently Administered Medications Times are shown in EDT. Scheduled Medication Order 04/06/2011 04/07/2011 04/08/2011 amlodipine (NORVASC) tablet 10 mg (CANCELED) 10 mg, Oral, DAILY, First dose on Sun04/07/11 at 1300, Until Discontinued, Routine 1808 (Given - Provider: Tk Novoa RN) 0900 (Given - Provider: Odilon Peña RN) aspirin EC tablet 325 mg 325 mg, Oral, DAILY, First dose on Sun04/08/11 at 0900, Until Discontinued, Routine 0900 (Given - Provid er: Odilon Peña RN) atorvastatin (LIPITOR) tablet 10 mg (CANCELED) 10 mg, Oral, EVERY EVENING, First dose on Sun04/07/11 at 1700, Until Discontinued, Therapeutic interchange from pravastatin per P&T policy, Routine 1700 (Given - Provider: Tk Novoa RN) clopidogrel (PLAVIX) tablet 75 mg 75 mg, Oral, DAILY, First dose on Sun04/08/11 at 0900, Until Discontinued, Routine 0900 (Given - Provid er: Odilon Peña RN) diaZEPam (VALIUM) tablet 5 mg (COMPLETED) 5 mg, Oral, ONCE, 1 dose, On Sun04/07/11 at 0715, Cath (Day of Procedure), Routine 0834 (Given - Provider: Darlene Rodriguez RN) diphenhydrAMINE (BENADRYL) tablet 25 mg (COMPLETED) 25 mg, Oral, ONCE, 1 dose, On Sun04/07/11 at 0715, Cath (Day of Procedure), Routine 0834 (Given - Provider: Darlene Rodriguez RN) metoprolol tartrate (LOPRESSOR) tablet 25 mg (CANCELED) 25 mg, Oral, 2 TIMES DAILY, First dose on Sun04/07/11 at 1300, Until Discontinued, Routine 1300 (Given - Provider: Tk Novoa RN)2059 (Given - Provider: Veronica Allen RN) 0900 (Given - Provider: Odilon Peña RN) sodium chloride 0.9 % flush 5 mL (CANCELED) 5 mL, Intravenous, EVERY 12 HOURS, First dose on Sun04/07/11 at 0715, Until Discontinued, Day of Surgery (Day of Procedure) 0715 (Given by Other - Provider: Jenny Joseph RN) Continuous Medication Order 04/06/2011 04/07/2011 04/08/2011 sodium chloride 0.9% infusion (CANCELED) 100 mL/hr, Intravenous, CONTINUOUS, Starting on Sun04/07/11 at 0715, Until Sun04/07/11 at 1234, Day of Surgery (Day of Procedure) 0720 (New Bag - Provider: Sa jose francisco Roman RN)1045 (Stopped - Provider: Yamilet Gibson RN) sodium chloride 0.9% infusion () 100 mL/hr, Intravenous, CONTINUOUS, Starting on Sun04/07/11 at 1100, Until Sun04/07/11 at 2059 1045 (New Bag - Provider: Ludmila Gibson RN - Comment: post cath fluid)1800 (Stopped - Provider: Tk Novoa RN) PRN Medication Order 04/06/2011 04/07/2011 04/08/2011 acetaminophen (TYLENOL) tablet 650 mg (CANCELED) 650 mg, Oral, EVERY 6 HOURS PRN, Starting on Sun04/07/11 at 1234, Until 04/08/11 at 1422, Pain, Mild Pain, Maximum dose of acetaminophen is 4000 mg from all sources in 24 hours., Routine 1900 (Given - Provider: Tk Novoa RN) alum-mag hydroxide-simeth (MAALOX) 200-200-20 mg/5 mL oral suspension 10 mL (CANCELED) 10 mL, Oral, 3 TIMES DAILY PRN, Starting on Sun04/07/11 at 1058, Until 04/08/11 at 1422, Heartburn, Routine 1100 (Given - Provider: Yamilet Gibson RN - Comment: given per order Ringwala for throat/chest discomfort)2021 (Given - Provider: Veronica Allen, RONALDO) bivalirudin (ANGIOMAX) 250 mg in sodium chloride 0.9% 50 mL infusion (MERCHANDISER SEASONAL) (CANCELED) CONTINUOUS PRN, Starting on Sun04/07/11 at 0942, Until Sun04/07/11 at 1234, Cath (Intra-Procedure), Routine 0942 (New Bag - Provider: Joshua Huitron)1004 (Stopped - Provider: Dung Andrade Jr.) bivalirudin (ANGIOMAX) injection (COMPLETED) ONCE PRN, 1 dose, Starting on Sun04/07/11 at 0940, Until Sun04/07/11 at 0940, Intra-Operative (Intra-Procedure), Routine 0940 (Given - Provider: Jackson Andrade Jr.) clopidogrel (PLAVIX) tablet (COMPLETED) ONCE PRN, 1 dose, Starting on Sun04/07/11 at 0939, Until Sun04/07/11 at 0939, Intra-Operative (Intra-Procedure), Routine 0939 (Given - Provider: Jackson Andrade Jr.) fentaNYL 50mcg/mL injection (COMPLETED) ONCE PRN, 1 dose, Starting on Sun04/07/11 at 0855, Until Sun04/07/11 at 0855, Pain, Intra-Operative (Intra-Procedure), Routine 0855 (Given - Provider: Blake Hamilton RN) fentaNYL 50mcg/mL injection (COMPLETED) ONCE PRN, 1 dose, Starting on Sun04/07/11 at 0912, Until Sun04/07/11 at 0912, Pain, Intra-Operative (Intra-Procedure), Routine 09 (Given - Provider: Jackson Andrade Jr.) fentaNYL 50mcg/mL injection (COMPLETED) ONCE PRN, 1 dose, Starting on Sun04/07/11 at 0949, Until Sun04/07/11 at 0949, Pain, Intra-Operative (Intra-Procedure), Routine 0949 (Given - Provider: Jackson Andrade Jr.) heparin (porcine) injection (COMPLETED) ONCE PRN, 1 dose, Starting on Sun04/07/11 at 0915, Until Sun04/07/11 at 0915, Intra-Operative (Intra-Procedure), Routine 0915 (Given - Provider: Elayne Corrigan MD) iohexol (OMNIPAQUE) 350 mg/mL injection (COMPLETED) ONCE PRN, 1 dose, Starting on Sun04/07/11 at 1010, Until Sun04/07/11 at 1010, Per Protocol, Cath (Intra-Procedure), Routine 1010 (Given - Provider: Elayne Corrigan MD) midazolam (VERSED) injection (COMPLETED) ONCE PRN, 1 dose, Starting on Sun04/07/11 at 0854, Until Sun04/07/11 at 0854, Sleep, EP (Intra-Procedure), Routine 0854 (Given - Provider: Blake Hamilton RN) midazolam (VERSED) injection (COMPLETED) ONCE PRN, 1 dose, Starting on Sun04/07/11 at 0905, Until Sun04/07/11 at 0905, Sleep, EP (Intra-Procedure), Routine 0905 (Given - Provider: Jackson Andrade Jr.) midazolam (VERSED) injection (COMPLETED) ONCE PRN, 1 dose, Starting on Sun04/07/11 at 0949, Until Sun04/07/11 at 0949, Sleep, EP (Intra-Procedure), Routine 0949 (Given - Provider: Jackson Andrade Jr.) nitroGLYCerin 100 mcg/mL intracoronary dilution (COMPLETED) ONCE PRN, 1 dose, Starting on Sun04/07/11 at 0956, Until Sun04/07/11 at 0956, Cath (Intra-Procedure), Routine 0956 (Given - Provider: Elayne Corrigan MD) nitroGLYCerin 100 mcg/mL intracoronary dilution (COMPLETED) ONCE PRN, 1 dose, Starting on Sun04/07/11 at 1002, Until Sun04/07/11 at 1002, Cath (Intra-Procedure), Routine 1002 (Given - Provider: Elayne Corrigan MD) sodium chloride injection (COMPLETED) ONCE PRN, 1 dose, Starting on Sun04/07/11 at 1000, Until Sun04/07/11 at 1000, Line Care, Intra-Operative (Intra-Procedure), Routine 1000 (Given - Provider: Jackson Andrade Jr.) documented in this encounter Care Teams Chief Console Operator Relationship Specialty Start Date End Date Sammy Thompson MD PCP - General 06/14/10 10/19/14 documented as of this encounter
--- OUTSIDE RECORDS SUMMARY | 2024-03-05 10:41 | XMS_ITS | Encounter Summary ---
Author Organization [facility] Address [facility] [place] [address] Care Team Providers Care Picker Machine Operator Name Role Phone Андрей Espinoza MD Primary Care Provider [phone] Reason for Visit * Reason Onset Date Comments Chest Pain 04/06/2011 cath teaching Encounter Details Date Type Department Care Team (Late st Contact Info) Description 04/06/2011 Telephone Cardiology at [address] [phone] Elias Yepez MD [facility] [place] [address] Chest Pain (cath teaching) Social History Tobacco Use Types Packs/Day Years Used Date Smoking Tobacco: Never Assessed Sex and Gender Information Value Date Recorded Sex Assigned at Not on file Gender Identity Not on file Sexual Orientation Not on file documented as of this encounter Miscellaneous Notes * Telephone Encounter - Ananya Root LPN - 04/06/2011 3:43 PM EDT Pre Cardiac Cath/PTCA Phone Teaching Note Date of Cath:__04/07/2011 Indication:__chest pain Date of Labs:(within 30 days)_03/31/2011 Date of EKG:_AM of Medications: Stop Metformin 48 hour prior ( )Last dose__n/a Insulin orders given Stop Coumadin days prior ( ) Last dose _n/a Does patient have a contrast or shellfish allergy? _no If yes, was Prednisone RX given?__n/a Does patient have abnormal renal functions?__no If yes, was Mucomyst RX given?_n/a Back Pain management: Understands potential for back pain.(yes ) Identifies pain management strategies. (yes ) Teach 0-10 pain intensity scale. (yes ) Education: Patient understands purpose of cardiac cath/PTCA. (yes ) Patient understands pre and post procedure care. (yes ) Date of call:_04/06/2011 Spoke with:_Pt Comments: documented in this encounter Plan of Treatment Upcoming Encounters Date Type Department Care Team (Late st Contact Info) Description 03/11/2024 8:00 AM EDT Office Visit [place] [phone] Ananya Torres, ALODIZE MACHINE OPERATOR 03/26/2024 9:00 AM EDT Appointment Non-Invasive [place] [phone] Ronnie Jamil MD [address] [place] [address] [facility] [place] [address] 03/26/2024 11:30 AM EDT [place] [phone] Ronnie Jamil MD [address] [place] [address] [place] [address] 03/26/2024 2:30 PM EDT Appointment [place] [address] 03/26/2024 4:30 PM EDT Office Visit Neurology at [facility] [place] [address] Ronnie Jamil MD [address] [place] [address] [place] [address] 04/01/2024 8:00 AM EDT Office Visit Speech Therapy at [facility] [place] [address] Ananya Torres, ALODIZE MACHINE OPERATOR 04/15/2024 8:00 AM EDT Office Visit Speech Therapy [place] [facility] [place] [address] Ananya Torres, ALODIZE MACHINE OPERATOR 04/29/2024 8:00 AM EDT Office Visit [place] [address] Ananya Torres, ALODIZE MACHINE OPERATOR documented as of this encounter Visit Diagnoses Not on filedocumented in this encounter Care Teams Picker Machine Operator Relationship Specialty Start Date End Date Андрей Espinoza MD PCP - General 06/14/10 10/19/14 documented as of this encounter
--- OUTSIDE RECORDS SUMMARY | 2024-03-05 10:41 | XMS_ITS | Encounter Summary ---
Author Organization [facility] Address [facility] [place] [address] Care Team Providers Care Chalk Tester Name Role Phone Андрей Espinoza MD Primary Care Provider [phone] Encounter Details Date Type Department Care Team (Latest Contact Info) Description 06/10/2013 9:43 AM EST - 06/10/2013 5:25 PM EST Hospital Encounter [place] [address] Андрей Somers MD [facility] [place] [address] CAD (coronary artery disease); ASCVD (arteriosclerotic cardiovascular disease) Discharge Disposition: Home Social History Tobacco Use Types Packs/Day Years Used Date Smoking Tobacco: Former Cigarettes Q uit: 10/09/2010 Sex and Gender Information Value Date Recorded Sex Assigned at Not on file Gender Identity Not on file Sexual Orientation Not on file documented as of this encounter Last Filed Vital Signs Vital Sign Reading Time Taken Comments Blood Pressure 158/94 06/10/2013 4:00 PM EST Pulse 69 06/10/2013 3:46 PM EST Temperature 37.6 ??C (99.7 ??F) 06/10/2013 10:[address] Respiratory Rate 16 06/10/2013 3:46 PM EST Oxygen Saturation 95% 06/10/2013 3:46 PM EST Inhaled Oxygen Concentration - - Weight - - Height - - Body Mass Index - - documented in this encounter Discharge Instructions * Discharge Instructions* Maritza Andre RN - 06/10/2013 3:53 PM EST Activity If you are discharged the same [...] by your doctor, do not take any [id number] medicines or herbal preparations without first discussing this with your doctor or pharmacist. There is the possibility of side effect and interactions when these are combined. Follow up Care Who to Call with Questions or Problems If there are any questions or problems that you think might be related to your cardiac cath or angioplasty, contact the dianeticist financial sales consultant by calling [facility] at . Reviewed Discharge instructions with Patient. documented in this encounter Medications at Time of Discharge Medication Sig Dispensed Refills Start Date End Date PARoxetine (PAXIL) 30 mg tablet Take 30 mg by mouth every morning. metoprolol tartrate (LOPRESSOR) 25 mg tabletIndications :hypertension Take 50 mg by mouth 2 times daily. Indications: hypertension nitroGLYcerin (NITROSTAT) 0.4 mg SL tablet 0.4mg, Sublingual, PRN 05/15/2005 aspirin 325 mg EC tablet Take 1 tablet by mouth daily. 30 tablet 04/08/2011 amlodipine (NORVASC) 10 mg tablet Take 10 mg by mouth daily. gabapentin (NEURONTIN) 300 mg capsule Take 300 mg by mouth 2 times daily. 10/20/2014 hydroCODone-aceta minophen (VICODIN) 5-500 mg per tablet Take 1 tablet by mouth every 6 hours as needed. 017 pravastatin (PRAVACHOL) 40 mg tabletIndications :hypertriglycerid emia Take 40 mg by mouth daily. Indications: Hypertriglyceridemia 01/25/2017 documented as of this encounter Progress Notes * Leander Pulido MD - 06/10/2013 4:40 PM EST IC Fellow Note: Evaluated pt in same day s/p diagnostic cardiac cath via a right radial approach. Patient had some discomfort in his right wrist. A small hematoma was noted and 20 minutes of pressure was held with no further bleeding or swelling. Patient had good (2+) radial pulse with intact distal perfusion. A splint was placed and patient reminded not to use his right hand for the next few days. He was asked to call with any changes/concerns with his right hand. Leander Pulido MD Conversion Developer Pager# [phone] * Maritza Andre RN - 06/10/2013 4:[address] Ron in to see pt and he is holding pressure on radial artery. MM * Rocío Purdy RN - 06/10/2013 3:[address] Sullivan to bedside to assess. Pulse present- wrist achey- Dr Desouza aware also 15:45 Dr Somers in center medical and lab director- made aware update given to Maritza HIGGINS - * Jim Mcbride - 06/10/2013 12:18 PM EST ABSORB III SCREEN FAILURE NOTE ABSORB III RANDOMIZED CONTROLLED TRIAL A Clinical Evaluation of Absorb??? BVS, the Everolimus Eluting Bioresorbable Vascular Scaffold in the Treatment of Subjects with de erica [place] Coronary Artery Lesions PI: Paul Goss MD Pager #:[phone] Research Coordinators: Jim Mcbrdie, BS, BA, SMALLTALK DEVELOPER Pager #:[phone] Gonzales Rhodes RN Pager #: [phone] Purpose: The pivotal trial to support the [place] pre-market approval (PMA) of Absorb BVS. ABSORB III will evaluate the safety and effectiveness of the Absorb BVS System compared to the XIENCE in the treatment of subjects, including those with diabetes mellitus, with ischemic heart disease caused by up to two denovo [place] coronary artery lesions in separate epicardial vessels. Study Design: A prospective, randomized (2:1 ABSORB BVS to XIENCE), single-blind, multi-center trial registering ~2250 patients. Angiographic Inclusion Criteria: 1. One or two de erica target lesion(s): a. If there is one target lesion, a second non-target lesion may be treated but the non-target lesion must be present in a different epicardial vessel, and must be treated first with a successful, uncomplicated result prior to randomization of the target lesion. b. If two target lesions are present, they must be present in different epicardial vessels and bothmust satisfy the angiographic eligibility criteria. c. The definition of epicardial vessels means the LAD, LCX and RCA and their branches. Thus, the patient must not have lesions requiring treatment in e.g. both the LAD and a diagonal branch. 2. Target lesion(s) must be located in a [place] coronary artery with a visually estimated or quantitatively assessed %DS of ? 50% and < 100% with a RENAY flow of ? 1 and one of the following: stenosis ? 70%, an abnormal functional test (e.g., fractional flow reserve, stress test), unstable anginaor post-infarct angina. a. Lesion(s) must be located in a [place] coronary artery with RVD by visual estimation of ? 2.50 mmand ? 3.75 mm. b. Lesion(s) must be located in a [place] coronary artery with length by visual estimation of ? 24 mm. Angiographic Exclusion Criteria: 1. Lesion which prevents successful balloon pre-dilatation, defined as full balloon expansion with the following outcomes: - Residual %DS is a maximum < 40% (per visual estimation), ? 20% is strongly recommended. -RENAY Grade-3 flow (per visual estimation). - No angiographic complications (e.g. distal embolization, side branch closure). - No dissections NHLBI grade D-F. - No chest pain lasting > 5 minutes. - No ST depression or elevation lasting > 5 minutes. 2. Lesion is located in left main. 3. Aorto-ostial RCA lesion (within 3 mm of the ostium). 4. Lesion located within 3 mm of the origin of the LAD or LCX. 5. Lesion involving a bifurcation with a: a. side branch ? 2 mm in diameter, or b. side branch with either an ostial or non-ostial lesion with diameter stenosis > 50%, or c. side branch requiring pre-dilatation or protection guide wire 6. Anatomy proximal to or within the lesion that may impair delivery of the Absorb BVS or XIENCE stent: b. Extreme angulation (? 90??) proximal to or within the target lesion. c. Excessive tortuosity (? two 45?? angles) proximal to or within the target lesion. d. Moderate or heavy calcification proximal to or within the target lesion. If IVUS used, subject must be excluded if calcium ARC in the vessel prior to the lesion or within the lesion is ? 180??. 7. Vessel contains thrombus as indicated in the angiographic images or by IVUS or OCT. 8. Lesion or vessel involves a myocardial bridge. 9. Vessel has been previously treated with a stent at any time prior to the index procedure such that the Absorb BVS or XIENCE would need to cross the stent to reach the target lesion. 10. Vessel has been previously treated and the target lesion is within 5 mm proximal or distal to apreviously treated lesion. 11. Target lesion located within an arterial or saphenous vein graft or distal to any arterial or saphenous vein graft. The subject was deemed ineligible for participation in the ABSORB III clinical trial based on Angiographic Inclusion Criteria number(s): 1 referenced above. Non-obstructed coronary arteries (no target lesion). * Jim Mcbride - 06/10/2013 10:22 AM EST ABSORB III RANDOMIZED CONTROLLED TRIAL A Clinical Evaluation of Absorb??? BVS, the Everolimus Eluting Bioresorbable Vascular Scaffold in the Treatment of Subjects with de erica [place] Coronary Artery Lesions PI: Paul Goss MD Pager #:[phone] Research Coordinators: Jim Mcbride, BS, BA, SMALLTALK DEVELOPER Pager #:[phone] Gonzales Rhodes RN Pager #: [phone] Purpose: The pivotal trial to support the [place] pre-market approval (PMA) of Absorb BVS. ABSORB III will evaluate the safety and effectiveness of the Absorb BVS System compared to the XIENCE in the treatment of subjects, including those with diabetes mellitus, with ischemic heart disease caused by up to two denovo [place] coronary artery lesions in separate epicardial vessels. Study Design: A prospective, randomized (2:1 ABSORB BVS to XIENCE), single-blind, multi-center trial registering ~2250 patients. Consent: Following the determination this potential participant did not have any obvious evidence of clinical exclusion to the ABSORB III Randomized Controlled Trial, the subject was provided with a written informed consent. The purpose, procedures, risks, potential benefits of the study, as well as alternatives to participation were reviewed and questions were answered. The subject signed the informed consent agreeing to participate, providing angiographic inclusion criteria are satisfied. The subject was provided with a copy of the signed informed consent document. documented in this encounter H&P Notes * Vernon Desouza MD - 06/10/2013 10:56 AM EST Patient Name: Elias Pennington Patient Age: 53 y.o. Birthdate: 1960 Admit date: 06/10/2013 Attending Physician: Андрей Somers MD Complete Adult Pre-Procedural H&P Patient Name: Elias Pennington : [id number] y.o. MR#: [id number] Chief Complaint: chest pain Planned Procedure: Coronary angiogram and possible PCI History of Present Illness: HPI Pre-Cardiac Catheterization 24 hr Update Please see note dated 06/05/13 for full details regarding reason for referral for cardiac catheterization. There has been no significant interval change in clinical status since that visit. Review of Systems Unchanged Physical Exam: Filed Vitals: 06/10/13 1035 Pulse: 74 Temp: 37.6 ??C (99.7 ??F) TempSrc: Temporal Resp: 18 SpO2: 98% Physical Exam Unchanged Labs reviewed. Assessment and Plan: Exertional chest pain in a patient with known coronary artery disease and unable to tolerate nitrates. For coronary angiogram and possible PCI. VERNON DESOUZA MD 06/10/2013 documented in this encounter Miscellaneous Notes * Miscellaneous - Provider, Scanning - 06/10/2013 12:57 PM EST documented in this encounter Plan of Treatment Upcoming Encounters Date Type Department Care Team (Late st Contact Info) Description 03/11/2024 8:00 AM EDT Office Visit Speech Therapy at [place] [phone] Ananya Torres, INSTRUCTOR BUSINESS EDUCATION 03/26/2024 9:00 AM EDT Appointment Non-Invasive Cardiology Lab [place] [phone] Ronnie Jamil MD [address] [address] [place] [address] 03/26/2024 11:30 AM ED[place] [address] Ronnie Jamil MD [address] [address] [place] [address] 03/26/2024 2:30 PM EDT Appointment [place] [phone] 03/26/2024 4:30 PM EDT Office [place] [phone] Ronnie Jamil MD [address] [place] [address] [place] [address] 04/01/2024 8:00 AM EDT Office [place] [phone] Ananya Torres SLP 04/15/2024 8:00 AM EDT Office [place] [address] Ananya Torres SLP 04/29/2024 8:00 AM EDT Office [place] [phone] Ananya Torres SLP documented as of this encounter Procedures Procedure Name Priority Date/Time Associated Diagnosis Comments EKG 12-LEAD STAT 06/10/2013 10:41 AM EST CAD (coronary artery disease) documented in this encounter Results * EKG 12 Lead (06/10/2013 10:41 AM EST) Ventricular rate 79 BPM MUSE SYSTEM Atrial Rate 79 BPM MUSE SYSTEM P-R Interval 166 ms MUSE SYSTEM QRS Duration 80 ms MUSE SYSTEM Q-T Interval 380 ms MUSE SYSTEM QTC Calculated (Bezet) 435 ms MUSE SYSTEM Calculated P [place] 56 degrees MUSE SYSTEM Calculated R [place] 5 degrees MUSE SYSTEM Calculated T [place] 20 degrees MUSE SYSTEM INTERPRETATION Normal sinus rhythm with sinus arrhythmia Normal ECG When compared with ECG of 07-APR-2011 19:09, No significant change was found Confirmed by MD Gume, Kevin ([id number]) on 06/12/2013 7:58:32 AM MUSE SYSTEM 06/10/2013 10:4 1 AM EST 06/12/2013 7:58 AM EST Андрей Somers MD ECG ORDERABLES MUSE SYSTEM documented in this encounter Visit Diagnoses Diagnosis CAD (coronary artery disease) Coronary atherosclerosis of unspecified type of vessel, cher-ae [place] or graft ASCVD (arteriosclerotic cardiovascular disease) Unspecified cardiovascular disease documented in this encounter Administered Medications Inactive Administered Medications - up to 3 most recent administrations Medication Order MAR Action Action Date Dose Rate Site diaZEPam (VALIUM) tablet 5 mg 5 mg, Oral, ONCE, 1 dose, On Sun06/10/13 at 1045, Cath (Day of Procedure), Routine Given 06/10/2013 11:04 AM EST 5 mg diphenhydrAMINE (BENADRYL) capsule 25 mg 25 mg, Oral, ONCE, 1 dose, On Sun06/10/13 at 1045, Cath (Day of Procedure), Routine Given 06/10/2013 11:05 AM EST 25 mg sodium chloride 0.9% infusion 200 mL/hr, Intravenous, CONTINUOUS, Starting on Sun06/10/13 at 1045, Until Sun06/10/13 at 1228, Cath (Day of Procedure) New Bag 06/10/2013 10:45 AM EST 200 mL/hr 200 mL/hr sodium chloride 0.9% infusion 100 mL/hr, Intravenous, CONTINUOUS, Starting on Sun06/10/13 at 1245, Until Sun06/10/13 at 1444 New Bag 06/10/2013 12:42 PM EST 100 mL/hr 100 mL/hr documented in this encounter Active and Recently Administered Medications Times are shown in EST. Scheduled Medication Order 06/08/2013 06/09/2013 06/10/2013 diaZEPam (VALIUM) tablet 5 mg (COMPLETED) 5 mg, Oral, ONCE, 1 dose, On Sun06/10/13 at 1045, Cath (Day of Procedure), Routine 1104 (Given - Provid er: Brianne Rivera RN) diphenhydrAMINE (BENADRYL) capsule 25 mg (COMPLETED) 25 mg, Oral, ONCE, 1 dose, On Sun06/10/13 at 1045, Cath (Day of Procedure), Routine 1105 (Given - Provid er: Brianne Rivera RN) Continuous Medication Order 06/08/2013 06/09/2013 06/10/2013 sodium chloride 0.9% infusion (CANCELED) 200 mL/hr, Intravenous, CONTINUOUS, Starting on Sun06/10/13 at 1045, Until Sun06/10/13 at 1228, Cath (Day of Procedure) 1045 (New Bag - Prov ider: Brianne Rivera RN) sodium chloride 0.9% infusion () 100 mL/hr, Intravenous, CONTINUOUS, Starting on Sun06/10/13 at 1245, Until Sun06/10/13 at 1444 1242 (New Bag - Prov ider: Rocío Purdy RN) PRN Medication Order 06/08/2013 06/09/2013 06/10/2013 fentaNYL 50mcg/mL injection (CANCELED) ONCE PRN, Starting on Sun06/10/13 at 1115, Until Sun06/10/13 at 1228, Pain, Intra-Operative (Intra-Procedure), Routine 1115 (Given - Provid er: Amador Perry) heparin (porcine) injection (CANCELED) ONCE PRN, Starting on Sun06/10/13 at 1150, Until Sun06/10/13 at 1228, Cath (Intra-Procedure), Routine 1150 (Given - Provid er: Amador Perry) iohexol (OMNIPAQUE) 350 mg iodine/mL injection (CANCELED) ONCE PRN, Starting on Sun06/10/13 at 1215, Until Sun06/10/13 at 1228, Per Protocol, Cath (Intra-Procedure), Routine 1215 (Given - Provid er: Leander Pulido MD) midazolam (VERSED) injection (CANCELED) ONCE PRN, Starting on Sun06/10/13 at 1115, Until Sun06/10/13 at 1228, Sleep, Cath (Intra-Procedure), Routine 1115 (Given - Provid er: Amador Perry) nitroGLYCerin 100 mcg/mL intracoronary dilution (CANCELED) ONCE PRN, Starting on Sun06/10/13 at 1144, Until Sun06/10/13 at 1228, Cath (Intra-Procedure), Routine 1144 (Given - Provid er: Leander Pulido MD) sodium chloride 0.9% infusion (CANCELED) CONTINUOUS PRN, Starting on Sun06/10/13 at 1201, Until Sun06/10/13 at 1228, Cath (Intra-Procedure) 1201 (New Bag - Prov ider: Amador Perry) verapamil (ISOPTIN) injection (CANCELED) ONCE PRN, Starting on Sun06/10/13 at 1143, Until Sun06/10/13 at 1228, Administer over 2 Minutes, Cath (Intra-Procedure) 1143 (Given - Provid er: Leander Pulido MD) documented in this encounter Care Teams Chalk Tester Relationship Specialty Start Date End Date Андрей Espinoza MD PCP - General 06/14/10 10/19/14 documented as of this encounter
--- OUTSIDE RECORDS SUMMARY | 2024-03-05 10:41 | XMS_ITS | Encounter Summary ---
Author Organization [facility] [place] [address] Care Team Providers Care Clinical Provider Trainer Name Role Phone Андрей Espinoza MD Primary Care Provider [phone] Reason for Referral * Surgical (Routine) - Closed Specialty Diagnoses / Procedures Referred By Chin t Referred To Contact Orthopaedic Surgery / Orthopaedics Diagnoses Spinal stenosis of lumbar region Jay Valadez MD [facility] [place] [address] [facility] [address] [place] [address] Referral ID Status Reason Start Date Expiration Date V isits Requested Visits Authorized [id number] Closed Consult, Test & Treat 06/24/2014 06/24/2015 1 1 Reason for Visit * Reason Onset Date Comments Medication Refill 06/24/2014 Encounter Details Date Type Department Care Team (Late st Contact Info) Description 06/24/2014 Refill [place] [address] Jay Valadez MD [facility] [address] Spinal stenosis of lumbar region Social History Tobacco Use Types Packs/Day Years [...] AM EDT Office [place] [address] Ananya Torres, GUIDEMAN 03/26/2024 9:00 AM EDT Appointment [place] [address] Ronnie Jamil MD [address] [address] [place] [address] 03/26/2024 11:30 AM EDT Appointment MRI at [facility] [place] [address] Ronnie Jamil MD [address] [address] [place] [address] 03/26/2024 2:30 PM EDT Appointment [place] [address] 03/26/2024 4:30 PM EDT Office [place] [address] Ronnie Jamil MD [address] [place] [address] [place] [address] 04/01/2024 8:00 AM EDT Office [place] [address] Ananya Torres, GUIDEMAN 04/15/2024 8:00 AM EDT Office [place] [address] Ananya Torres, GUIDEMAN 04/29/2024 8:00 AM EDT Office [place] [address] Ananya Torres, GUIDEMAN Scheduled Referrals Name Type Priority Associated Diagnoses Orde r Schedule Referral to Spine Center Outpatient Referral Routine Spinal stenosis of lumbar region Ordered: 06/24/2014 documented as of this encounter Visit Diagnoses Diagnosis Spinal stenosis of lumbar region Spinal stenosis, lumbar region, without neurogenic claudication documented in this encounter Care Teams Clinical Provider Trainer Relationship Specialty Start Date End Date Андрей Espinoza MD PCP - General 06/14/10 10/19/14 documented as of this encounter
--- OUTSIDE RECORDS SUMMARY | 2024-03-05 10:41 | XMS_ITS | Encounter Summary ---
Author Organization [facility] Address [address] [place] [address] Care Team Providers Care Sample Maker Original Name Role Phone Unknown, Provider Primary Care Provider Андрей Coello MD Primary Care Provider [phone] Encounter Details Date Type Department Care Team (Late st Contact Info) Description 09/13/2019 Lab Requisition [facility] Pathology & Laboratory Medicine - [facility] [address] [place] [address] Unknown, Provider, Social History Tobacco Use Types Packs/Day Years Used Date Smoking Tobacco: Never Assessed Sex and Gender Information Value Date Recorded Sex Assigned at Not on file Gender Identity Not on file Sexual Orientation Not on file documented as of this encounter Plan of Treatment Not on file documented as of this encounter Procedures Procedure Name Priority Date/Time Associated Diagnosis Comments H. PYLORI ANTIGEN Routine 09/13/2019 8:35 EST documented in this encounter Results * H. PYLORI ANTIGEN (09/13/2019 8:35 EST) H. Pylori Negative Negative 09/16/2019 13:38 EST [facility] Feces SPECIMEN FROM RECTUM / Unknown 09/13/2019 8:35 EST 09/14/2019 15:50 EST Narrative [facility] - 09/16/2019 13:38 EST Results were obtained with the [employer] [place] EVELINE. Provider Unknown MICROBIOLOGY - GENER AL ORDERABLES [facility] [address] [place] [address] documented in this encounter Visit Diagnoses Not on filedocumented in this encounter Care Teams Sample Maker Original Relationship Specialty Start Date End Date Unknown, Provider, PCP - General 07/29/10 08/22/22 Андрей Coello MD [facility] [place] [address] PCP - General 08/23/22 documented as of this encounter
--- OUTSIDE RECORDS SUMMARY | 2024-03-05 10:41 | XMS_ITS | Encounter Summary ---
Author Organization [facility] Address [facility] [place] [address] Care Team Providers Care Wildland Fire Fighter Specialist Name Role Phone Adam Grey MD Primary Care Provider [phone] Encounter Details Date Type Department Care Team (Late st Contact Info) Description 12/13/2015 9:45 AM EDT Office Visit Dermatology at [address] [place] [address] Deepak Olson MD [address] [facility] [place] [address] Lichen simplex chronicus Social History Tobacco Use Types Packs/Day Years Used Date Smoking Tobacco: Former Cigarettes Q uit: 10/09/2010 Smokeless Tobacco: Never Sex and Gender Information Value Date Recorded Sex Assigned at Not on file Gender Identity Not on file Sexual Orientation Not on file documented as of this encounter Progress Notes * Deepak Olson MD - 12/13/2015 10:18 AM EDT Problem: Followup lichen simplex chronicus. Elias follows up after last being seen in August. His truck was not functional, so he was not able to follow up for a 30-day visit. However, things have all but cleared after even just the one injection. Physical examination still reveals some minimal linear plaque remaining over the right mid dorsal hand, but essentially it has all but cleared. Assessment and Plan: Lichen simplex chronicus. a. Today minimal remaining sites were injected with Kenalog 5 mg/mL. b. Patient reassured. c. At this point, would just recommend return to clinic on a p.r.n. basis. d. Recommend using good emollient cream to sooth the skin until it has totally healed, apply once or twice daily. e. Patient notes that his hand rubs against the rim of the toilet when he wipes himself. This may be contributing to the problem. Recommend that he obtain an ovoid, larger rimmed toilet seat for his home toilet. COPY: Adam Grey M.D. documented in this encounter Plan of Treatment Upcoming Encounters Date Type Department Care Team (Late st Contact Info) Description 03/11/2024 8:00 AM EDT Office [place] [address] Ananya Torres, ASSISTANT TERMINAL MANAGER 03/26/2024 9:00 AM EDT Appointment Non-Invasive [place] [phone] Ronnie Jamil MD [address] [address] [place] [address] 03/26/2024 11:30 AM EDT Appointment MRI at [place] [phone] Ronnie Jamil MD [address] [address] [place] [address] 03/26/2024 2:30 PM EDT Appointment [place] [address] 03/26/2024 4:30 PM EDT Office [place] [address] Ronnie Jamil MD [address] [place] [address] [place] [address] 04/01/2024 8:00 AM EDT Office [place] [address] Ananya Torres SLP 04/15/2024 8:00 AM EDT Office [place] [address] Ananya Torres SLP 04/29/2024 8:00 AM EDT Office [place] [address] Ananya Torres, ASSISTANT TERMINAL MANAGER documented as of this encounter Visit Diagnoses Diagnosis Lichen simplex chronicus Lichenification and lichen simplex chronicus documented in this encounter Care Teams Wildland Fire Fighter Specialist Relationship Specialty Start Date End Date Adam Grey MD [facility] [address] [place] [address] PCP - General 10/20/14 12/04/16 documented as of this encounter
--- OUTSIDE RECORDS SUMMARY | 2024-03-05 10:41 | XMS_ITS | Encounter Summary ---
Author Organization [facility] Address [facility] [place] [address] Care Team Providers Care Accounting Bookkeeper Name Role Phone Андрей Espinoza MD Primary Care Provider [phone] Encounter Details Date Type Department Care Team (Late st Contact Info) Description 04/07/2011 8:41 AM EDT Anesthesia Event [place] [address] Marlon Grossman MD [facility] [place] [address] Anesthesia Record Procedure Summary Procedure Name Responsible Anesthesiologist Anesthesia Start Time Anesthesia Stop Time CARDIAC CATHETERIZATION Events No events on file. Meds * Agents No agents on file. * Blood No blood administrations on file. Lines, Drains, and Airways Type Details Placement Removal Incision 04/07/11; groin; 06/10/13; 1607 04/07/11 0000 by Jenny Cash RN 06/10/13 1607 by Maritza Andre RN (RETIRED) Peripheral IV Line - Single Lumen 04/07/11; 0720; 04/08/11 04/07/11 0720 by Sandra Roman RN 04/08/11 0000 by Odilon Peña RN (RETIRED) Peripheral IV Line - Single Lumen 04/07/11; 0720; 04/08/11 04/07/11 0720 by Sandra Roman RN 04/08/11 0000 by Odilon Peña RN LDA Cath/EP Sheath 04/07/11; 0911; 6 Iraqi (Fr) (6F); Right; Femoral 04/07/11 0911 by Jeff Danielle RN 04/07/11 1009 by Jeff Danielle RN (RETIRED) Peripheral IV Line - Single Lumen 06/10/13; 1059; 06/10/13; 1607 06/10/13 1059 by Brianne Rivera RN 06/10/13 1607 by Maritza Andre RN (RETIRED) Peripheral IV Line - Single Lumen 06/10/13; 1059; 06/10/13; 1607 06/10/13 1059 by Brianne Rivera RN 06/10/13 1607 by Maritza Andre RN LDA Cath/EP Sheath 06/10/13; 1143; 6 Iraqi (Fr); Right (Right radial artery sheath); Wrist 06/10/13 1143 by Shabana Anderson RN 06/10/13 1215 by Shabana Anderson RN (RETIRED) Peripheral IV Line - Single Lumen 01/26/17; 1225; basilic vein (medial side of arm), left; kwsh-qec-gmvxpp catheter system; 20 gauge, 1 in length; Arthur Dubose RN; distraction, intradermal injection, tolerated well, appears comfortable; 01/26/17; 1623 01/26/17 1225 by Jose Dubose RN 01/26/17 1623 by Genia Goodman RN (RETIRED) Peripheral IV Line - Single Lumen 01/26/17; 1238; median cubital vein (antecubital fossa), right; yszm-uup-huftdu catheter system; 18 gauge, 1 in length; Arthur Dubose RN; distraction, intradermal injection, tolerated well, appears comfortable; 01/26/17; 1623 01/26/17 1238 by Jose Dubose RN 01/26/17 1623 by Genia Goodman RN LDA Cath/EP Sheath 01/26/17; 1349; 6 Iraqi (Fr) (slender); Right; Wrist (radial artery) 01/26/17 1349 by Irina Casarez RN 01/26/17 1404 by Irina Casarez RN (RETIRED) Peripheral IV Line - Single Lumen 10/19/20; 1235; metacarpal vein (top of hand), left; kupa-cwh-kpjwwj catheter system; Anatomical Landmarks; 20 gauge; jacoby; intradermal injection; no longer indicated; 10/19/20; 1718 10/19/20 1235 by Iliana Grewal, RONALDO 10/19/20 1718 by Michael Honeycutt, RONALDO LDA Cath/EP Sheath 10/19/20; 1353; 6 Iraqi (Fr) (slender); Right; Wrist (radial artery) 10/19/20 1353 by Lynne Becker, RN 10/19/20 1411 by Lynne Becker, RN documented in this encounter Social History Tobacco Use Types Packs/Day Years [...] AM EDT Office [place] [address] Ananya Torres, EXTRUSION OPERATOR 03/26/2024 9:00 AM EDT Appointment Non-Invasive [place] [address] Ronnie Jamil MD [address] [place] [address] [place] [address] 03/26/2024 11:30 AM EDT [place] [address] Ronnie Jamil MD [address] [place] [address] [place] [address] 03/26/2024 2:30 PM EDT Appointment [place] [address] 03/26/2024 4:30 PM EDT Office [place] [address] Ronnie Jamil MD [address] [place] [address] [place] [address] 04/01/2024 8:00 AM EDT Office Visit [place] [address] Ananya Torres, EXTRUSION OPERATOR 04/15/2024 8:00 AM EDT Office Visit [place] [address] Ananya Torres, EXTRUSION OPERATOR 04/29/2024 8:00 AM EDT Office Visit [place] [address] Ananya Torres, EXTRUSION OPERATOR documented as of this encounter Visit Diagnoses Not on filedocumented in this encounter Care Teams Accounting Bookkeeper Relationship Specialty Start Date End Date Андрей Espinoza MD PCP - General 06/14/10 10/19/14 documented as of this encounter
--- OUTSIDE RECORDS SUMMARY | 2024-03-05 10:41 | XMS_ITS | Encounter Summary ---
Author Organization [facility] Address [facility] [place] [address] Care Team Providers Care Gold Wheel Blocker And Polisher Name Role Phone Андрей Espinoza MD Primary Care Provider [phone] Encounter Details Date Type Department Care Team (Late st Contact Info) Description 03/31/2011 Orders Only Cardiology at [address] [address] Emily Mi, [facility] [place] [address] Social History Tobacco Use Types [...] AM EDT Office [place] [address] Ananya Torres, GASTROINTESTINAL TECHNICIAN 03/26/2024 9:00 AM EDT Appointment Non-[place] [address] Ronnie Jamil MD [address] [address] [place] [address] 03/26/2024 11:30 AM [place] [address] Ronnie Jamil MD [address] [address] [place] [address] 03/26/2024 2:30 PM EDT Appointment [place] [address] 03/26/2024 4:30 PM EDT Office [place] [address] Ronnie Jamil MD [address] [address] [place] [address] 04/01/2024 8:00 AM EDT Office [place] [address] Ananya Torres, GASTROINTESTINAL TECHNICIAN 04/15/2024 8:00 AM EDT Office [place] [address] Ananya Torres GASTROINTESTINAL TECHNICIAN 04/29/2024 8:00 AM EDT Office [place] [address] Ananya Torres, GASTROINTESTINAL TECHNICIAN documented as of this encounter Procedures Procedure Name Priority Date/Time Associated Diagnosis Comments CARDIAC CATHETERIZATION Routine 04/07/20 11 12:16 PM EDT documented in this encounter Results * Cardiac Catheterization (04/07/2011 12:16 PM EDT) Anatomical Region Laterality Modality Other Narrative 04/07/2011 12:16 PM EDT A scan was deleted from the Results section by Pankaj Velázquez [[id number]] on 04/03/2011 at ??4:06 PM (File: [id number]) Андрей Wilson MD CARDIAC CATH ORDERAB LES documented in this encounter Visit Diagnoses Not on filedocumented in this encounter Care Teams Gold Wheel Blocker And Polisher Relationship Specialty Start Date End Date Андрей Espinoza MD PCP - General 06/14/10 10/19/14 documented as of this encounter
--- OUTSIDE RECORDS SUMMARY | 2024-03-05 10:41 | XMS_ITS | Encounter Summary ---
Author Organization [facility] Address [facility] [place] [address] Care Team Providers Care Nuclear Equipment Test Engineer Name Role Phone Андрей Espinoza MD Primary Care Provider [phone] Encounter Details Date Type Department Care Team (Late st Contact Info) Description 06/11/2013 Notes Only Cardiology at [address] [phone] Leander Pulido MD [facility] [place] [address] Social History Tobacco Use Types Packs/Day Years Used Date Smoking Tobacco: Former Cigarettes Q uit: 10/09/2010 Sex and Gender Information Value Date Recorded Sex Assigned at Not on file Gender Identity Not on file Sexual Orientation Not on file documented as of this encounter Progress Notes * Leander Pulido MD - 06/11/2013 9:15 AM EST Called Mr. Pennington to follow-up on his cath yesterday. He has had no further issues with his wrist. Hehas no bleeding, pain or discomfort in his wrist. Leander Pulido MD Concession Cashier Pager# [phone] 06/11/2013 documented in this encounter Plan of Treatment Upcoming Encounters Date Type Department Care Team (Late st Contact Info) Description 03/11/2024 8:00 AM EDT Office [place] [address] Ananya Torres CONTENT DEVELOPMENT MANAGER 03/26/2024 9:00 AM EDT Appointment Non-Invasive Cardiology [place] [address] Ronnie Jamil MD [address] [place] [address] [place] [address] 03/26/2024 11:30 AM EDT Appointment MRI at [place] [phone] Ronnie Jamil MD [address] [place] [address] [place] [address] 03/26/2024 2:30 PM EDT Appointment Neurodiagnostic at [place] [phone] 03/26/2024 4:30 PM EDT Office Visit Neurology at [place] [phone] Ronnie Jamil MD [address] [place] [address] [place] [address] 04/01/2024 8:00 AM EDT Office Visit Speech Therapy at [place] [phone] Ananya Torres, CONTENT DEVELOPMENT MANAGER 04/15/2024 8:00 AM EDT Office [place] [address] Ananya Torres, CONTENT DEVELOPMENT MANAGER 04/29/2024 8:00 AM EDT Office [place] [address] Ananya Torres, CONTENT DEVELOPMENT MANAGER documented as of this encounter Visit Diagnoses Not on filedocumented in this encounter Care Teams Nuclear Equipment Test Engineer Relationship Specialty Start Date End Date Андрей Espinoza MD PCP - General 06/14/10 10/19/14 documented as of this encounter
--- OUTSIDE RECORDS SUMMARY | 2024-03-05 10:41 | XMS_ITS | Encounter Summary ---
[facility] Organization [facility] Address [facility] [place] [address] Care Team Providers Care Shipping Order Clerk Name Role Phone Андрей Coello MD Primary Care Provider [phone] Encounter Details Date Type Department Care Team (Late st Contact Info) Description 01/24/2017 Orders Only Cardiology at [address] [phone] Emily Mi PA [facility] [address] CARDIOLOGY DEPT. [place], [place] [id number] ASCVD (arteriosclerotic cardiovascular disease) Social History Tobacco Use Types Packs/Day Years [...] AM EDT Office [place] [phone] Ananya Torres, PRINTER ASSISTANT 03/26/2024 9:00 AM EDT Appointment Non-Invasive [place] [phone] Ronnie Jamil MD [address] [place] [address] [place] [address] 03/26/2024 11:30 AM [place] [address] Ronnie Jamil MD [address] [address] [place] [address] 03/26/2024 2:30 PM EDT Appoint[place] [address] 03/26/2024 4:30 PM EDT [place] [address] Ronnie Jamil MD [address] [address] [place] [address] 04/01/2024 8:00 AM EDT Office [place] [address] Ananya Torres, PRINTER ASSISTANT 04/15/2024 8:00 AM EDT Office [place] [address] Ananya Torres, PRINTER ASSISTANT 04/29/2024 8:00 AM EDT Office [place] [address] Ananya Torres, PRINTER ASSISTANT documented as of this encounter Procedures Procedure Name Priority Date/Time Associated Diagnosis Comments CARDIAC CATHETERIZATION Routine 01/26/2017 2:08 PM EDT ASCVD (arteriosclerotic cardiovascular disease) documented in this encounter Results * CARDIAC CATHETERIZATION (01/26/2017 2:08 PM EDT) Anatomical Region Laterality Modality Other Narrative 01/27/2017 2:43 AM EDT ?[facility] ? Cardiac Catheterization/Intervention Report ? Patient Name: Elias Pennington. ? Procedure Date: 01/26/2017 ? A #: [id number] ? Primary Physician: Ahmed, Nataly ? Case #: [id number] ? File Name: [id number] ? Catheterization Order Number: [id number] ? [facility] ? Final Report [place], [place] ? Patient Name: ? Elias A. Gorge ?ID#: ?[id number] ? : ?1960 ? Procedure Date: ? January 26, 2017 ? Case #: ? [id number] ? Room: ? 6 ? Case Physician: ? Nataly Mcginnis M.D. ? Start: ?13:47 ?Fellow: ? Mirian Moctezuma M.D. ? Admission: ??01/26/2017 ? Referring Physician: ??Андрей Coello M.D. ? Procedures: ?* Coronary Angiography ?* Left Heart Catheterization ? History ?Elias Pennington is a 56 year old man. He has hypertension, a family history ?of coronary artery disease and morbid obesity. The patient has a history ?of smoking. He has hypercholesterolemia managed with lipid therapy. The ?patient has diabetes managed with oral medication. He has stable angina, ?a history of chest pain and a prior history of coronary artery disease. ?The patient has an angina classification of III. He had a remote coronary ?intervention procedure. Prior to the initiation of this procedure, the ?patient was designated as ASA Class III. ? Patient Status at Catheterization: ?The patient presented with: stable angina (w/i 42 days). [place] ?Cardiovascular Society angina class was III. This patient was on beta ?blockers, calcium paris blockers and nitrates prior to the procedure. A ?SPECT stress test was performed and results were Negative. ? Technique: ?A 6Fr sheath was inserted in the right radial artery utilizing the ?Seldinger technique. The left coronary artery was injected utilizing a ?5Fr JL 3.5 catheter. A 6Fr JR 4 catheter was used to inject the right ?coronary artery. The left ventricle was injected utilizing a 6Fr JR 4 ?catheter. 7,000 units of heparin were administered. A total of 100cc of ?Omnipaque were opened, 36cc of Omnipaque were administered and 64cc of ?Omnipaque were wasted. Radiation: Fluoro time was 3.2 minutes, dose area ?product was 52,503 mGYcm2 and air kerma was 547 mGY. ?The patient received the following medications prior to and during the ?procedure: Aspirin (any). ? Hemodynamics: ?Left Heart Pressures ? Resting: ? Syst Diast ? EDP ?a ?v ? m ?Ao 115 ?? 69 ?75 ?LV 125 ? 13 ? Coronary Angiography: ?Dominance: Right ?Left Main ? There was mild diffuse disease of the entire vessel segment of the ? left main artery. ??The left main was moderate in size. ?Left Anterior Descending ? There was mild diffuse disease of the entire vessel segment of the ? left anterior descending artery (LAD). ??The LAD was moderate in ? size. ? There was mild diffuse disease of the entire vessel segment of the ? first diagonal branch (Diagonal 1) of the LAD. ??The Diagonal 1 was ? moderate in size. ? There was mild diffuse disease of the entire vessel segment of the ? first septal branch (1st Septal) of the LAD. ??The 1st Septal was ? small. ?Left Circumflex ? There was mild diffuse disease of the entire vessel segment of the ? left circumflex artery (LCX). ??The LCX was moderate in size. ?Right Coronary Artery ? There was mild diffuse disease of the proximal segment of the right ? coronary artery (RCA). ??The RCA was large. ??The previously placed ? stent is patent. The mid segment of the RCA had mild diffuse ? disease. ??The previously placed stent is patent. ? There was mild diffuse disease of the entire vessel segment of the ? right posterior descending branch (RPDA) of the RCA. ??The RPDA was ? moderate in size. ?Ramus ? There was a 30% diffuse stenosis of the entire vessel segment of the ? ramus. ??The ramus was small. ? Vascular Access: ?Vascular Access Management: ? Mechanical Compression of the right radial artery access site was ? performed. ? Conclusions: ?* Nonobstructive coronary artery disease ?* Patent RCA stents. ?* Unchanged coronary anatomy compared to 2013. ? Complications/Events: ?The patient had no complications during these procedures. ?The attending physician was present for the entire procedure. ?Dr. Nataly Mcginnis M.D. was present during the moderate sedation intraservice ?time as documented by the sedation nurse. ??Case time = 00:15. ?Dr. Nataly Mcginnis M.D. performed the coronary angiography and left heart ?catheterization. ? Nataly Mcginnis M.D. ? Electronically Signed by: Nataly Mcginnis M.D. ? Report Finalized: 01/26/2017 ??14:32 ? Procedure Note Nataly Mcginnis MD - 01/27/2017 [facility] Cardiac Catheterization/Intervention Report Patient Name: Elias PenningtonShakir Procedure Date: 01/26/2017 A #: [id number] Primary Physician: Nataly Mcginnis Case #: [id number] File Name: [id number] Catheterization Order Number: [id number] [facility] FinalReport [place], [place] Patient Name: Elias Pennington ID#:[id number] :1960 Procedure Date: January 26, 2017 Case #: [id number] Room: 6 Case Physician: Nataly Ahmed, M.D. Start: 13:47 Fellow: Mirian Moctezuma M.D. Admission:01/26/2017 Referring Physician: Андрей Coello M.D. Procedures: * Coronary Angiography * Left Heart Catheterization History Elias Pennington is a 56 year old man. He has hypertension, a familyhistory of coronary artery disease and morbid obesity. The patient has ahistory of smoking. He has hypercholesterolemia managed with lipid therapy.The patient has diabetes managed with oral medication. He has stableangina, a history of chest pain and a prior history of coronary arterydisease. The patient has an angina classification of III. He had a remotecoronary intervention procedure. Prior to the initiation of this procedure,the patient was designated as ASA Class III. Patient Status at Catheterization: The patient presented with: stable angina (w/i 42 days). [place] Cardiovascular Society angina class was III. This patient was onbeta blockers, calcium paris blockers and nitrates prior to theprocedure. A SPECT stress test was performed and results were Negative. Technique: A 6Fr sheath was inserted in the right radial artery utilizing the Seldinger technique. The left coronary artery was injected utilizinga 5Fr JL 3.5 catheter. A 6Fr JR 4 catheter was used to inject theright coronary artery. The left ventricle was injected utilizing a 6Fr JR4 catheter. 7,000 units of heparin were administered. A total of 100ccof Omnipaque were opened, 36cc of Omnipaque were administered and 64ccof Omnipaque were wasted. Radiation: Fluoro time was 3.2 minutes, dosearea product was 52,503 mGYcm2 and air kerma was 547 mGY. The patient received the following medications prior to and duringthe procedure: Aspirin (any). Hemodynamics: Left Heart Pressures Resting: Syst Diast EDP a v m Ao 115 69 75 LV 125 13 Coronary Angiography: Dominance: Right Left Main There was mild diffuse disease of the entire vessel segment ofthe left main artery. The left main was moderate in size. Left Anterior Descending There was mild diffuse disease of the entire vessel segment ofthe left anterior descending artery (LAD). The LAD was moderate in size. There was mild diffuse disease of the entire vessel segment ofthe first diagonal branch (Diagonal 1) of the LAD. The Diagonal 1was moderate in size. There was mild diffuse disease of the entire vessel segment ofthe first septal branch (1st Septal) of the LAD. The 1st Septalwas small. Left Circumflex There was mild diffuse disease of the entire vessel segment ofthe left circumflex artery (LCX). The LCX was moderate in size. Right Coronary Artery There was mild diffuse disease of the proximal segment of theright coronary artery (RCA). The RCA was large. The previouslyplaced stent is patent. The mid segment of the RCA had mild diffuse disease. The previously placed stent is patent. There was mild diffuse disease of the entire vessel segment ofthe right posterior descending branch (RPDA) of the RCA. The RPDAwas moderate in size. Ramus There was a 30% diffuse stenosis of the entire vessel segmentof the ramus. The ramus was small. Vascular Access: Vascular Access Management: Mechanical Compression of the right radial artery access sitewas performed. Conclusions: * Nonobstructive coronary artery disease * Patent RCA stents. * Unchanged coronary anatomy compared to 2013. Complications/Events: The patient had no complications during these procedures. The attending physician was present for the entire procedure. Dr. Nataly Mcginnis M.D. was present during the moderate sedationintraservice time as documented by the sedation nurse. Case time = 00:15. Dr. Nataly Mcginnis M.D. performed the coronary angiography and left heart catheterization. Nataly Mcginnis M.D. Electronically Signed by: Nataly Mcginnis M.D. Report Finalized: 01/26/2017 14:32 Nataly Mcginnis MD CARDIAC CATH ORDERAB LES documented in this encounter Visit Diagnoses Diagnosis ASCVD (arteriosclerotic cardiovascular disease) Unspecified cardiovascular disease ASCVD (arteriosclerotic cardiovascular disease) Unspecified cardiovascular disease documented in this encounter Care Teams Shipping Order Clerk Relationship Specialty Start Date End Date Андрей Coello MD [address] [place] [address] [place] [address] PCP - General 12/05/16 documented as of this encounter
--- OUTSIDE RECORDS SUMMARY | 2024-03-05 10:41 | XMS_ITS | Encounter Summary ---
Author Organization [facility] Address [address] [place] [address] Care Team Providers Care Toggler Name Role Phone Unknown, Provider Primary Care Provider Encounter Details Date Type Department Care Team (Latest Contact Info) Description 02/03/2015 10:12 EDT - 02/03/2015 23:59 EDT Hospital Encounter [address] [address] Unknown, Provider, Discharge Disposition: Home or Self Care Social History Tobacco Use Types Packs/Day Years Used Date Smoking Tobacco: Never Assessed Sex and Gender Information Value Date Recorded Sex Assigned at Not on file Gender Identity Not on file Sexual Orientation Not on file documented as of this encounter Discharge Disposition Disposition Code Departure Means Destination Home or Self Correction documented in this encounter Plan of Treatment Not on file documented as of this encounter Visit Diagnoses Not on filedocumented in this encounter Care Teams Toggler Relationship Specialty Start Date End Date Unknown, Provider, PCP - General 07/29/10 08/22/22 documented as of this encounter
--- OUTSIDE RECORDS SUMMARY | 2024-03-05 10:41 | XMS_ITS | Encounter Summary ---
Author Organization [facility] Address [facility] [place] [address] Care Team Providers Care Reinforced Steel Placing Supervisor Name Role Phone Sammy Thompson MD Primary Care Provider [phone] Reason for Referral * (Routine) - Closed by system - unspecified Specialty Diagnoses / Procedures Referred By Contac t Referred To Contact Diagnoses CAD (coronary artery disease) Elias Chapa MD [facility] [place] [address] Referral ID Status Reason Start Date Expiration Date Visits Requested Visits Authorized [id number] Closed by system - unspecified Evaluate and Treat 04/08/2011 10/05/2011 1 1 Encounter Details Date Type Department Care Team (Latest Contact Info) Description 04/07/2011 6:33 AM EDT - 04/08/2011 12:14 PM EDT Hospital Encounter Intermediate [place] [address] Emily Mi PA [facility] [address] [place] [address] Elias Chapa MD [facility] [place] [address] CAD (coronary artery disease) Discharge Disposition: Home Social History Tobacco Use Types Packs/Day Years Used Date Smoking Tobacco: Former Cigarettes Q uit: 10/09/2010 Sex and Gender Information Value Date Recorded Sex Assigned at Not on file Gender Identity Not on file Sexual Orientation Not on file documented as of this encounter Last Filed Vital Signs Vital Sign Reading Time Taken Comments Blood Pressure 123/81 04/08/2011 7:00 AM EDT Pulse 67 04/08/2011 7:00 AM EDT Temperature 36.3 ??C (97.3 ??F) 04/08/2011 7:00 AM ED T Respiratory Rate 18 04/08/2011 7:00 AM EDT Oxygen Saturation 97% 04/08/2011 7:00 AM EDT Inhaled Oxygen Concentration - - Weight 121.4 kg (267 lb 10.2 oz) 04/08/2011 6:43 AM EDT Height 182.9 cm (6') 04/07/2011 6:52 AM EDT Body Mass Index 36.3 04/07/2011 6:52 AM EDT documented in this encounter Discharge Instructions * Attachments The following attachments cannot be sent through Care Everywhere. * CARDIAC CATHETERIZATION: AFTER YOUR VISIT (MAORI) documented in this encounter Medications at Time [...] without c/o chest discomfort.R groin slightly sore. Sweatband Cutting Machine Operator here to see and discharge. Dc to home orders written. Dc info reviewed including meds. Plavix prescription arranged by joseph at [facility].Does not want to participate in outpatient cardiac rehab. Comfortable with dc ,discharged/ * Дмитрий North, RAD - 04/08/2011 10:02 AM EDT Office of Care Management Social Work Insurance Actuary Note Relevant Information: SW paged by [facility] Sat am, as pt is being dc'd on Plavix, says he has no $. I met w/pt, who says he has Cigna rx coverage, but cannot afford copay, as he is out of work and just filled all his other rx before coming to [facility]. Pt's is coming to pick him up today. Assessment: I noted OCM can either cover cost of Cigna copay or the month's Plavix; Pt is expected to be on Plavix just 30 days, per Cardi. Plan: I asked pt to have rx card run by [facility], and I spoke with Pharmacy. OCM [...] Phase 2 in 2003 s/p PCI in [facility] but would like to join again. RN will ambulate pt once he is off bedrest. See notes for activity details. Participation to the outpatient cardiac rehabilitation program at [facility] was discussed. A referral will be sent to the program and the patient will be contacted within 2 weeks. documented in this encounter H&P Notes * Elias Chapa MD - 04/07/2011 10:21 AM EDT Elias Pennington [id number] 04/07/2011 51 y.o. Admission History and Physical [...] ischemia. . Patient was therefore brought to [facility] for [facility] possible PCI. Catheterization revealed a long [...] 04/10/2011 10:03 AM EDTAssociated Order(s): SCAN DOC: LUNCH COUNTER MANAGER documented in this encounter Miscellaneous Notes * Miscellaneous - Provider, Scanning - 04/10/2011 9:52 AM EDT * Discharge Summary - Elias Chapa MD - 04/08/2011 8:31 AM EDT Physician Discharge Summary Patient ID: Elias Pennington [id number] y.o. 1960 Admit date: 04/07/2011 Discharge [...] ischemia. . Patient was therefore brought to [facility] for [facility] possible PCI. Catheterization revealed a long [...] 0.00 - 0.05 (x10(3)/mcL) Patient Instructions: Unchanged MANAGER OF HOSPITAL meds that are or will be resumed [...] tablet by mouth daily. 30 tablet 0 MANAGER OF HOSPITAL meds that are DCed or will be [...] (Dr. Thompson) in 1-2 weeks, and your Distribution Collection Operator(Dr. Peña) in 4-6 weeks. Please contact each [...] AM EDT Office [place] [address] Ananya Torres, COPPER FLOTATION OPERATOR 03/26/2024 9:00 AM EDT Appointment Non-Invasive Cardiology Lab [facility]ly [facility] [place] [address] Ronnie Jamil MD [address] [place] [address] [place] [address] 03/26/2024 11:30 AM EDT Appointment [place] [place] [address] Ronnie Jamil MD [address] [place] [address] [place] [address] 03/26/2024 2:30 PM EDT Appointment [place] [address] 03/26/2024 4:30 PM EDT Office Visit [place] [address] Ronnie Jamil MD [address] [place] [address] [place] [address] 04/01/2024 8:00 AM EDT Office Visit Speech [place] [address] Ananya Torres, COPPER FLOTATION OPERATOR 04/15/2024 8:00 AM EDT Office [place] [address] Ananya Torres SLP 04/29/2024 8:00 AM EDT Office [place] [address] Ananya Torres SLP Scheduled Orders Name Type Priority Associated Diagnoses [...] IMPLANTABLE DEVICES SCAN 04/10/2011 11:38 AM EDT LUNCH COUNTER MANAGER SCAN 04/10/2011 10:03 AM EDT BMP W/FASTING GLUCOSE Routine 04/08/2011 4:13 AM EDT DIFFERENTIAL, AUTOMATED Routine 04/08/20 11 4:13 AM EDT CARDIAC ENZYMES ([facility]) Routine 04/08/2011 4:13 AM EDT CBC (WITH DIFF) Routine 04/08/2011 4:13 AM EDT HEMOGLOBIN A1C Routine 04/08/2011 4:13 AM EDT LIPID PANEL (REFLEX DIRECT LDL) Routine 04/08/2011 4:13 AM EDT EKG 12-LEAD STAT 04/07/2011 7:09 PM EDT CAD (coronary artery disease) EKG 12-LEAD Routine 04/07/2011 10:38 AM EDT CAD (coronary artery disease) CARDIAC ENZYMES ([facility]) STAT 04/07/2011 10:02 AM EDT CARDIAC CATHETERIZATION [...] SCAN EXT O RDR/RSLT * SCAN DOC: LUNCH COUNTER MANAGER (04/10/2011 10:03 AM EDT) Anatomical Region Laterality Modality Other Narrative 04/10/2011 10:48 AM EDT Procedure Note Provider, Scanning - 04/10/2011 10:03 AM EDT Scanning Provider MEDIA MGR SCAN EXT O RDR/RSLT * REFLEX LAB-A-DIFF (04/08/2011 4:13 AM EDT) Neutrophil % 55.7 34.0 - 71.0 % [facility] Neutrophil Absolute 3.49 1.50 - 6.30 x10(3)/[facility] CERNER MILLENNIUM Lymph % 32.1 19.0 - 53.0 % [facility] M[facility] Lymphocytes Abs 2.0 1.0 - 3.6 x10(3)/[facility] CERNER MILLENNIUM Monocyte % 10.1 4.0 - 13.0 % CERNER MILLENNIUM Monocyte Abs 0.6 0.2 - 1.0 x10(3)/[facility] CERNER MILLENNIUM Eos % 1.6 0.0 - 7.0 % [facility] MILLENNIUM Eosinophils Abs 0.1 0.0 - 0.5 x10(3)/[facility] CERNER MILLENNIUM Basophil % 0.3 0.0 - 2.0 % CERNER MILLENNIUM Baso Absolute 0.0 0.0 - 0.2 x10(3)/[facility] CERNER MILLENNIUM Immature Gran % 0.20 0.00 - 0.66 % [facility] MILLENNIUM Comment: Immature granulocytes(IG's)percentage and absolute count will include metamyelocytes, myelocytes, and promyelocytes. Blood smears from CBCs yielding IG's will be scanned manually for concordance. If this scan disagrees with the automated IG or if promyelocytes are noted, a manual differential will be performed. Immature Gran Absolute 0.01 0.00 - 0.05 x10(3)/[facility] Blood specimen (specimen) 04/08/2011 4:13 AM EDT 04/08/2011 4:23 AM EDT Elias Chapa MD HEMATOLOGY ORDERABLE S [facility] * Hemoglobin A1c (04/08/2011 4:13 AM EDT) Hemoglobin A1c 5.7 4.3 - 6.1 % [facility] Estimated Average Glucose 117 mg/dL [facility] Comment: eAG equivalents for HbA1c [...] ADA website: ??http://professional.diabetes.org/glucosecalculator.aspx Reference: Ramakrishna BAZAN, Michelle Contreras, Noemi R, et al. ??Translating the A1C assay into estimated average glucose values. ??Diabetes Care 2008:31(8):5220-7796. Blood specimen (specimen) 04/08/2011 4:13 AM EDT 04/08/2011 4:23 AM EDT Elias Chapa MD CHEMISTRY ORDERABLES [facility] * Cardiac Enzymes (04/08/2011 4:13 AM EDT) Troponin-T <0.03 <=0.03 ng/mL [facility] Comment: 0.03 ng/mL: Represents the 99th percentile upper reference limit for normals. >0.03 ng/mL: Elevated cardiac troponin T level indicative of myocardial damage. Diagnosis of acute, evolving or recent [place] requires a typical rise and gradual fall [...] consensus document of the Joint Society of Cardiology/[place] College of Cardiology Committee for the redefinition of myocardial infarction. Journal of the [place] College of Cardiology 2000; 36: 959-969] Creatine Kinase 76 0 - 200 unit/L CERNER MILLENNIUM Blood specimen (specimen) 04/08/2011 4:13 AM EDT 04/08/2011 4:23 AM EDT Elias Chapa MD CHEMISTRY ORDERABLES [facility] * CBC (with Diff) (04/08/2011 4:13 AM EDT) White Blood Cell 6.3 4.0 - 10.0 x10(3)/mcL CERNER MILLENNIUM Red Blood Cell 4.94 4.63 - 6.08 [...] EDT Elias Chapa MD HEMATOLOGY ORDERABLE S Performing Organization Address City/[facility]/ZIP Co de Phone Number LYNNE GARCIAIUM * (ABNORMAL) Lipid panel (fasting) (04/08/2011 4:13 AM EDT) Cholesterol, Total 139 <=199 mg/dL CERNER MILLENNIUM Comment: Recommendations of the NCEP Adult Treatment Panel for the following risk cutoff thresholds for the [place] population: Desirable: <200 mg/dL Borderline High: 200-239 mg/dL High: > or = 240 mg/dL Triglyceride 114 <=149 mg/dL CERNER MILLENNIUM Comment: Reference Range: Normal triglycerides: ??<150 mg/dL Borderline high: ??150-199 mg/dL High: ??200-499 mg/dL Very high: ??>cy=290 mg/dL XIOMARA 2001; 285(19):5296-2162 HDL Cholesterol 36(L) >=40 mg/dL CER NER MILLENNIUM Comment: Reference range: ??Low HDL: ?? < 40 mg/dL ??Normal: ?40-60 mg/dL ??Desirable: > 60 mg/dL XIOMARA 2001; 285(19):5172-5252 LDL Cholesterol 80 <=99 mg/dL CER NER MILLENNIUM Comment: Reference range: ?? Optimal: ?<100 mg/dL ?? Near Optimal/Above Optimal: ?? 100-129 mg/dL ?? Borderline high: ?130-159 mg/dL ?? High: ? 160-189 mg/dL ?? Very high: ?>ns=041 mg/dL XIOMARA 2001: 285(19):2056-5983 Cholesterol/HDL Ratio 3.9 ratio CERNER MILLENNIUM Comment: A Cholesterol to HDL ratio below 4:1 is desirable. ??Studies suggest that increased CAD risk occurs at ratios above 5 for females and above 6 for men. ? [place] Heart Association ??(http://www.americanheart.org) ? Bev Int Med, 1994; 121:641 ? AM J Med, 1998; 105(1A):48S Blood specimen (specimen) 04/08/2011 4:13 AM EDT 04/08/2011 4:23 AM EDT Elias Chapa MD CHEMISTRY ORDERABLES CERNER MILLENNIUM * (ABNORMAL) BMP w/fasting Glucose (04/08/2011 4:13 AM EDT) Glucose Fasting 107(H) 65 - 99 mg/dL CERNER MILLENNIUM Comment: ?Fasting* Glucose Interpretive Criteria Normal ?65-99 [...] of Diabetes Mellitus, Position Statement from the [place] Diabetes Association. ??Diabetes Care, Volume 33, Supplement [...] AM EDT Elias Chapa MD CHEMISTRY ORDERABLES [facility] * EKG 12 Lead (04/07/2011 7:09 PM EDT) Ventricular rate 63 BPM MUSE SYSTEM Atrial Rate 63 BPM MUSE SYSTEM P-R Interval 194 ms MUSE SYSTEM QRS Duration 88 ms MUSE SYSTEM Q-T Interval 398 ms MUSE SYSTEM QTC Calculated (Bezet) 407 ms MUSE SYSTEM Calculated P [place] 31 degrees MUSE SYSTEM Calculated R [place] 0 degrees MUSE SYSTEM Calculated T [place] 7 degrees MUSE SYSTEM INTERPRETATION Normal sinus rhythm Normal ECG When compared with ECG of 07-APR-2011 10:38, No significant change was found Confirmed by MD Yang Robert ([id number]) on 04/08/2011 7:23:03 AM MUSE SYSTEM 04/07/2011 7:09 PM EDT 04/08/2011 7:23 AM EDT Elias Chapa MD ECG ORDERABLES Performing Organization Address [facility] de Phone Number MUSE SYSTEM * EKG 12 Lead (04/07/2011 10:38 AM EDT) Ventricular rate 63 BPM MUSE SYSTEM Atrial Rate 63 BPM MUSE SYSTEM P-R Interval 178 ms MUSE SYSTEM QRS Duration 88 ms MUSE SYSTEM Q-T Interval 398 ms MUSE SYSTEM QTC Calculated (Bezet) 407 ms MUSE SYSTEM Calculated P [place] 50 degrees MUSE SYSTEM Calculated R [place] 6 degrees MUSE SYSTEM Calculated T [place] 28 degrees MUSE SYSTEM INTERPRETATION Normal sinus rhythm Normal ECG When compared with ECG of 21-APR-2005 15:41, No significant change was found Confirmed by MD Moore Timothy ([id number]) on 04/07/2011 11:48:22 AM MUSE SYSTEM 04/07/2011 10:3 8 AM EDT 04/07/2011 11:48 AM EDT Elias Chapa MD ECG ORDERABLES Performing Organization Address [facility] Phone Number MUSE SYSTEM * Cardiac Enzymes (04/07/2011 10:02 AM EDT) Troponin-T <0.03 <=0.03 ng/mL [facility] NIghtingale Informatix CorporationFORM[facility]LY [facility] Comment: 0.03 ng/mL: Represents the 99th percentile upper reference limit for normals. >0.03 ng/mL: Elevated cardiac troponin T level indicative of myocardial damage. Diagnosis of acute, evolving or recent [place] requires a typical rise and gradual fall [...] consensus document of the Joint Society of Cardiology/[place] College of Cardiology Committee for the redefinition of myocardial infarction. Journal of the [place] College of Cardiology 2000; 36: 959-969] Creatine Kinase 62 0 - 200 unit/L LYNNE ROSENBAUM Blood specimen (specimen) 04/07/2011 10:02 AM EDT 04/07/2011 10:25 AM EDT Elias Chapa MD CHEMISTRY ORDERABLES LYNNE ROSENBAUM documented in this encounter Visit Diagnoses Diagnosis CAD (coronary artery disease) Coronary atherosclerosis of unspecified type of vessel, havasupai or graft Knee injuries Injury, other and unspecified, knee, leg, ankle, and foot Hyperlipidemia Other and unspecified hyperlipidemia Hypertension Unspecified essential hypertension documented in this encounter Administered Medications Inactive [...] 1058, Until 04/08/11 at 1422, Heartburn, Routine Given 04/07/2011 8:22 [...] Given 04/07/2011 5:00 PM EDT 10 mg clopidogrel (PLAVIX) tablet 75 mg 75 mg, Oral, DAILY, First dose on Sun04/08/11 at 0900, Until Discontinued, Routine Given 04/08/2011 9:00 AM EDT 75 mg diaZEPam (VALIUM) tablet 5 mg 5 mg, Oral, ONCE, 1 dose, On Sun04/07/11 at 0715, Cath (Day of Procedure), Routine Given 04/07/2011 8:34 AM EDT 5 mg diphenhydrAMINE (BENADRYL) tablet 25 mg 25 mg, Oral, ONCE, 1 dose, On Sun04/07/11 at 0715, Cath (Day of Procedure), Routine Given 04/07/2011 8:34 AM EDT 25 mg metoprolol tartrate (LOPRESSOR) tablet 25 mg 25 mg, Oral, 2 TIMES DAILY, First dose on Sun04/07/11 at 1300, Until Discontinued, Routine Given 04/08/2011 9:00 AM EDT 25 mg Given 04/07/2011 8:59 PM EDT 25 mg Given 04/07/2011 1:00 PM EDT 25 mg sodium chloride 0.9 % flush 5 mL [...] 10:45 AM EDT 100 mL/hr 100 mL/hr documented in [...] Procedure), Routine 0834 (Given - Provider: Darlene Rodriguez, RONALDO) metoprolol tartrate (LOPRESSOR) tablet 25 mg (CANCELED) 25 mg, Oral, 2 TIMES DAILY, First dose on Sun04/07/11 at 1300, Until Discontinued, Routine 1300 (Given - Provider: Tk Novoa, RONALDO)2059 (Given - Provider: Veronica Allen RN) 0900 [...] francisco Roman RN)1045 (Stopped - Provider: Yamilet Gibson, RONALDO) sodium chloride 0.9% infusion () 100 mL/hr, Intravenous, CONTINUOUS, Starting on Sun04/07/11 at 1100, Until Sun04/07/11 at 2059 1045 (New Bag - Provider: Ludmila Gibson, RONALDO - Comment: post cath fluid)1800 (Stopped - Provider: Tk Novoa RN) PRN Medication Order 04/06/2011 04/07/2011 04/08/2011 acetaminophen (TYLENOL) tablet 650 mg (CANCELED) 650 mg, Oral, EVERY 6 HOURS PRN, Starting on Sun04/07/11 at 1234, Until 04/08/11 at 1422, Pain, Mild Pain, Maximum dose of acetaminophen is 4000 mg from all sources in 24 hours., Routine 1900 (Given - Provider: Tk Novoa, RONALDO) alum-mag hydroxide-simeth (MAALOX) 200-200-20 mg/5 mL oral suspension 10 mL (CANCELED) 10 mL, Oral, 3 TIMES DAILY PRN, Starting on Sun04/07/11 at 1058, Until 04/08/11 at 1422, Heartburn, Routine 1100 (Given - Provider: Yamilet Gibson, RONALDO - Comment: given per order Ringwala for throat/chest discomfort)2021 (Given - Provider: Veronica Allen, RONALDO) bivalirudin (ANGIOMAX) 250 mg in sodium chloride 0.9% 50 mL infusion (VOLUNTEER FIREFIGHTER) (CANCELED) CONTINUOUS PRN, Starting on Sun04/07/11 at [...] Sun04/07/11 at 0855, Pain, Intra-Operative (Intra-Procedure), Routine 08 (Given - Provider: Blake Hamilton RN) fentaNYL [...] (Intra-Procedure), Routine 0854 (Given - Provider: Blake Hamilton, RONALDO) midazolam (VERSED) injection (COMPLETED) ONCE PRN, 1 dose, Starting on Sun04/07/11 at 0905, Until Sun04/07/11 at 0905, Sleep, EP (Intra-Procedure), Routine 09 (Given - Provider: Jackson Andrade Jr.) midazolam [...] Jr.) documented in this encounter Care Teams Reinforced Steel Placing Supervisor Relationship Specialty Start Date End Date Sammy Thompson MD PCP - General 06/14/10 10/19/14 documented as of this encounter
--- OUTSIDE RECORDS SUMMARY | 2024-03-05 10:41 | XMS_ITS | Encounter Summary ---
Author Organization [facility] Address [address] [place] [address] Care Team Providers Care Wrapper Off Name Role Phone Андрей Coello MD Primary Care Provider [phone] Encounter Details Date Type Department Care Team (Late st Contact Info) Description 09/18/2022 Lab Requisition [facility] Pathology & Laboratory Medicine - [facility] [address] [place] [address] Jim Mccall MD [address] [place] [address], [address] [place] [address] Encounter for screening for malignant neoplasm of colon Social History Tobacco Use Types Packs/Day Years Used Date Smoking Tobacco: Never Assessed Sex and Gender Information Value Date Recorded Sex Assigned at Not on file Gender Identity Not on file Sexual Orientation Not on file documented as of this encounter Plan of Treatment Not on file documented as of this encounter Procedures Procedure Name Priority Date/Time Associated Diagnosis Comments SURGICAL PATHOLOGY Today 09/18/2022 7:36 EST Encounter for screening for malignant neoplasm of colon documented in this encounter Results * SURGICAL PATHOLOGY (09/18/2022 7:36 EST) Note to Patient The following pathology results have been interpreted by your pathologist and may be available to you before your health provider has had the opportunity to review them. Please allow time for your provider to receive these results and explore management options, if applicable. 09/22/2022 7:46 [facility] Final Diagnosis A. RECTUM, BIOPSY: - Hyperplastic polyp B. CECUM, BIOPSY: - Tubular adenoma 09/22/2022 7:46 [facility] Attestation By the signature below, the attending physician certifies that they have 1) personally conducted a gross and/or microscopic examination of the described specimen(s), and/or personally interpreted the results of laboratory testing of the described specimen(s), and 2) personally rendered or confirmed the above diagnosis. 09/22/2022 7:46 [facility] at 0746 Clinical History Screening; clinical diagnosis code: Z12.11 09/22/2022 7:46 [facility] Gross Description A. Received in formalin labelled with proper patient identification (initials R, B) and rectal polyp is a pale rouse tissue, 0.4 x 0.2 x 0.2 cm. Entirely submitted in A1. B. Received in formalin labelled with proper patient identification (initials R, B) and cecal polyp is a rouse-brown tissue, 0.6 x 0.2 x 0.2 cm. Entirely submitted in B1. RIAN ROLLINS(ASCP) 09/19/2022 7:28 09/22/2022 7:46 [facility] Performing Lab [facility] 09/22/2022 7:46 [facility] Scanned Images 09/22/2022 7:46 [facility] Tissue ENTIRE COLON / Unknown 09/18/2022 7:36 EST 09/18/2022 18:13 EST Tissue specimen (specimen) COLON STRUCTURE / Unknown 09/18/2022 7:36 EST 09/18/2022 18:13 EST Jim Mccall MD PATHOLOGY ORDERABLES [facility] [address] [place] [address] documented in this encounter Visit Diagnoses Diagnosis Encounter for screening for malignant neoplasm of colon Special screening for malignant neoplasms, colon documented in this encounter Care Teams Wrapper Off Relationship Specialty Start Date End Date Андрей Coello MD [address] [place] [address] PCP - General 08/23/22 documented as of this encounter
--- OUTSIDE RECORDS SUMMARY | 2024-03-05 10:41 | XMS_ITS | Encounter Summary ---
Author Organization [facility] Address [address] [place] [address] Care Team Providers Care Hose Wrapper Name Role Phone Unavailable Primary Care Provider Unavailabl e Encounter Details Date Type Department Care Team (Late st Contact Info) Description 07/27/2010 Results Only [facility] - [facility] [place] [address] [place], [place] [id number] [place] [address] [place] [id number] Social History Tobacco Use Types Packs/Day Years Used Date Smoking Tobacco: Never Assessed Sex and Gender Information Value Date Recorded Sex Assigned at Not on file Gender Identity Not on file Sexual Orientation Not on file documented as of this encounter Plan of Treatment Not on file documented as of this encounter Procedures Procedure Name Priority Date/Time Associated Diagnosis Comments SURGICAL PATHOLOGY Routine 07/27/2010 0:00 EST documented in this encounter Results * SURGICAL PATHOLOGY (07/27/2010 0:00 EST) Pathology Report: SURGICAL PATHOLOGY REPORT ? Reports generated via electronic interface contain original data; ? however they are lacking the format of the original report. ? Caution should be taken when reading/interpreti ng unformatted reports. ? Name: ? CHRIS, ELIAS ? Accession #: ? [id number] ? : ? 1960 (Age: 50) ??M ? Collect Date: ? 07/27/2010 ? Location: ? [facility] ? Receive Date: ? 07/27/2010 ? Provider: THAI LION MD ? Copy to: CHEIKH AJAMIE MD ? Final Pathologic Diagnosis: ? A. ?Terminal ileum, biopsies: ? 1. ?Ileal mucosa with no specific histopathologic features. ? B. ?Colon, right, random, biopsies: ? 1. ?Colonic mucosa with no specific histopathologic features. ? C. ?Colon, left, random, biopsies: ? 1. ?Colonic mucosa with no specific histopathologic features. ? D. ?Rectum, random, biopsies: ? 1. ?Rectal mucosa with no specific histopathologic features. ??See ? comment. ? Comment: ? Specimens (A) through (D) show intact crypt architecture. ??There is no ? evidence of an inflammatory infiltrate that would denote an acute or chronic ? colitis. ??(Dr. Taveras)/ljn ? Document reviewed and electronically signed by: ? ABDELMONEM ELHOSSEINY MD ? Report ??Date: 08/01/2010 18:05 ? By the signature above, the attending physician certifies that he/she has ? personally conducted a gross and/or microscopic examination of the described ? specimens and rendered or confirmed the above diagnosis. ? Specimen(s) Received: ? A. ?Bx terminal ileum ? B. ? Bx random Rt colon, incl ascending and transverse ? C. ? Bx random Lt colon, incl descending and sigmoid ? D. ? Bx random rectum ? Clinical History: ? Rectal bleeding. H/O acute, but not chronic colitis. ??Pt has recurrent LLQ pain, tenesmus & rectal bleeding, ? IBD? Gross Description: ? Received in [employer]'s fixative labelled Elias Pennington and elliot terminal ? ileum are three biopsies which vary in size from 0.2 x 0.1 x 0.1 cm up to 0.5 x 0.3 x 0.3 cm. ??The specimens are submitted intact as (A). ? Received in [employer] fixative labelled Elias Pennington and bx random Rt colon, incl ascending and transverse are eight biopsies which vary in size from 0.2 x 0.2 x 0.2 cm up to 0.6 x 0.2 x 0.1 cm. ??The specimens are submitted intact as ?? (B1)-(B3). ? Received in [employer]'s fixative labelled Elias Pennington and bx random Lt colon, incl descending and sigmoid are 12 biopsies which vary in size from 0.3 x 0.2 x 0.2 cm up to 0.4 x 0.4 x 0.2 cm. ??The specimens are submitted intact as ? (C1)-(C4). ? Received in [employer]'s fixative labelled Chris Elias and bx random rectum ?? are four biopsies which vary in size from 0.2 x 0.2 x 0.2 cm up to 0.4 x 0.2 x ?? 0.2 cm. ??The specimens are submitted intact as (D1) and (D2). (J.D. ? Tess[employer]ore)/mpl ? End of Report ? KASSI MIMS 07/27/2010 07/27/2010 20: 08 EST Thai Lion MD PATHOLOGY ORDERABLES KASSI MIMS [address] [place] [address] documented in this encounter Visit Diagnoses Not on filedocumented in this encounter
--- OUTSIDE RECORDS SUMMARY | 2024-03-05 10:41 | XMS_ITS | Encounter Summary ---
Author Organization [facility] Address [facility] [place] [address] Care Team Providers Care Local Az Truck Driver Name Role Phone Андрей Coello MD Primary Care Provider [phone] Encounter Details Date Type Department Care Team (Latest Contact Info) Description 01/26/2017 10:28 AM EDT - 01/26/2017 4:32 PM EDT Hospital Encounter Same Day Program at [facility] [place] [address] Nataly Mcginnis MD [facility] [place] [address] ASCVD (arteriosclerotic cardiovascular disease) Discharge Disposition: Home [...] Sign Reading Time Taken Comments Blood Pressure 129/65 01/26/2017 3:23 PM EDT Pulse 59 01/26/2017 3:23 PM EDT Temperature 36.2 ??C (97.2 ??F) 01/26/2017 3:23 PM ED T Respiratory Rate 14 01/26/2017 4:00 PM EDT Oxygen Saturation 94% 01/26/2017 3:23 PM EDT Inhaled Oxygen Concentration - - [...] by your doctor, do not take any xofi-xcf-upatdtn medicinesor herbal preparations without first discussing this with your doctor or pharmacist. There is the possibility of side effects and interactions when these are combined. Follow Up Care Who to call with questions or problems If there are any questions or problems that you think might be related to your cardiac cath or angioplasty, contact the immigration coordinator race relations adviser by calling [facility] at . * Patient Instructions* Mirian Moctezuma MD - 01/26/2017 2:13 PM EDT Cardiology Instructions Call your doctor if: Chest pain, dyspnea, pain or swelling in legs occurs. If you have non-emergent questions between now and the time of your follow up appointments: -During 8am-5pm Sunday through Sunday call [phone] to speak with a nurse in the cardiology clinic -All other times call [phone] and ask to speak to the student counselor race relations adviser. MEDICATIONS - you can restart your metformin on 01/28/17 - keep nitroglycerin with you at all times, if you have chest pain, can take 1 tablet under your tongue every 5 minutes up to 3 tablets. If your pain does not resolve you need to call [phone]. Return to usual actvities: 1 week, as tolerated. Do not lift anything greater than 1 gallon for milk for 1 week You can shower the day after your procedure, but don't take any tub baths or soak in pools for 1 week after your procedure. Driving: No driving for 48 hours after catheterization. Follow up Appointments: Primary care provider: Cardiology: Андрей Coello MD [phone] Follow up as planned or as needed. [...] Upcoming Encounters Date Type Department Care Team ([facility] st Contact Info) Description 03/11/2024 8:00 AM EDT Office [place] [address] Ananya Torres, PHERESIS SPECIALIST 03/26/2024 9:00 AM EDT Appointment Non-[place] [address] Ronnie Jamil MD [address] [place] [address] [place] [address] 03/26/2024 11:30 AM [place] [address] Ronnie Jamil MD [address] [place] [address] [place] [address] 03/26/2024 2:30 PM EDT Appointment [place] [address] 03/26/2024 4:30 PM EDT [place] [address] Ronnie Jamil MD [address] [place] [address] [place] [address] 04/01/2024 8:00 AM EDT Office [place] [address] Ananya Torres, PHERESIS SPECIALIST 04/15/2024 8:00 AM EDT Office [place] [address] Ananya Torres PHERESIS SPECIALIST 04/29/2024 8:00 AM EDT Office [place] [address] Ananya Torres, PHERESIS SPECIALIST documented as of this encounter Procedures Procedure Name Priority Date/Time Associated Diagnosis Comments POCT GLUCOSE Routine 01/26/2017 3:38 PM EDT EKG 12-LEAD Routine 01/26/2017 11:58 AM EDT ASCVD (arteriosclerotic cardiovascular disease) POCT GLUCOSE Routine 01/26/2017 11:28 AM EDT documented in this encounter Results * POCT Glucose (01/26/2017 3:38 PM EDT) [facility] Glucose, POC 145 65 - 199 mg/dL [facility] Comment: Supplemental ranges: <140 mg/dL before meals <180 mg/dL all other times of the day Blood specimen (specimen) 01/26/2017 3:38 PM EDT 01/26/2017 3:38 PM EDT Nataly Mcginnis MD POINT OF CARE TEST O RDERABLES [facility] [place] [address] * EKG 12 Lead (01/26/2017 11:58 AM EDT) [facility] Ventricular rate 52 BPM MUSE SYSTEM Atrial Rate 52 BPM MUSE SYSTEM P-R Interval 184 ms MUSE SYSTEM QRS Duration 98 ms MUSE SYSTEM Q-T Interval 436 ms MUSE SYSTEM QTC Calculated (Bezet) 405 ms MUSE SYSTEM Calculated P [place] 45 degrees MUSE SYSTEM Calculated R [place] 6 degrees MUSE SYSTEM Calculated T [place] 23 degrees MUSE SYSTEM INTERPRETATION Sinus bradycardia [...] Glucose, POC 122 65 - 199 mg/dL [facility] Comment: Supplemental ranges: <140 mg/dL before meals <180 mg/dL all other times of the day Blood specimen (specimen) 01/26/2017 11:28 AM EDT 01/26/2017 11:28 AM EDT Nataly Mcginnis MD POINT OF CARE TEST O RDERABLES [facility] [place] [address] documented in this encounter Visit Diagnoses Diagnosis [...] in 24 hours., Recovery (Recovery-Hospital Unit), Routine sodium chloride 0.9% infusion 100 mL/hr, Intravenous, [...] MD) documented in this encounter Care Teams Local Az Truck Driver Relationship Specialty Start Date End Date Андрей Coello MD [facility] [place] [address] PCP - General 12/05/16 documented as of this encounter
--- OUTSIDE RECORDS SUMMARY | 2024-03-05 10:41 | XMS_ITS | Encounter Summary ---
Author Organization [facility] Address [address] [facility] [place] [address] Care Team Providers Care Warehouse Team Leader Name Role Phone Adam Grey MD Primary Care Provider [phone] Encounter Details Date Type Department Care Team (Latest Contact Info) Description 10/20/2014 10:38 AM EDT - 10/20/2014 11:59 PM EDT Hospital Encounter [place] at [facility] [place] [address] [facility] [place] [address] Epidural lipomatosis Social History Tobacco Use Types Packs/Day Years Used Date Smoking Tobacco: Former Cigarettes Q uit: 10/09/2010 Smokeless Tobacco: Never Sex and Gender Information Value Date Recorded Sex Assigned at Not on file Gender Identity Not on file Sexual Orientation Not on file documented as of this encounter Medications at Time of Discharge [...] tablet Take 10 mg by mouth daily. nabumetone (RELAFEN) 500 mg Tablet Take 500 mg by mouth 2 times daily. 01/25/2017 metoprolol succinate (TOPROL-XL) 50 mg Tablet Sustained Release 24 hr Take 50 mg by mouth 3 times daily. 01/25/2017 hydroCODone-aceta minophen (VICODIN) 5-500 mg per tablet Take 1 tablet by mouth every 6 hours as needed. 017 pravastatin (PRAVACHOL) 40 mg tabletIndications :hypertriglycerid emia Take 40 mg by mouth daily. Indications: Hypertriglyceridemia 01/25/2017 documented as of this encounter Plan of Treatment Upcoming Encounters Date Type Department Care Team ([facility] st Contact Info) Description 03/11/2024 8:00 AM EDT Office [place] [address] Ananya Torres, WELDER 2ND SHIFT 03/26/2024 9:00 AM EDT Appointment Non[place] [address] Ronnie Jamil MD [address] [place] [address] NEUROLOGY [facility] [place] [address] 03/26/2024 11:30 AM [place] [address] Ronnie Jamil MD [address] [address] [place] [address] 03/26/2024 2:30 PM EDT Appointment [place] [address] 03/26/2024 4:30 PM EDT [place] [address] Ronnie Jamil MD [address] [place] [address] [facility]OLOGY [facility] [place] [address] 04/01/2024 8:00 AM EDT Office [place] [address] Ananya Torres, WELDER 2ND SHIFT 04/15/2024 8:00 AM EDT Office [place] [address] Ananya Torres, WELDER 2ND SHIFT 04/29/2024 8:00 AM EDT Office [place] [address] Ananya Torres, VIKI documented as of this encounter Procedures Procedure Name Priority Date/Time Associated Diagnosis Comments XR LUMBAR SPINE 2 OR 3 VIEWS Routine 10/20/2014 10:48 AM EDT Epidural lipomatosis documented in this encounter Results * XR lumbar spine 2 or 3 views (10/20/2014 10:48 AM EDT) Anatomical Region Laterality Modality L-spine N/A Radiographic Mary ging 10/20/2014 10:4 8 AM EDT Impressions 10/20/2014 11:01 AM EDT IMPRESSION: 1. No recent or acute fracture. 2. Diffuse degenerative changes are noted in the visualized lower thoracic and lumbar spine. 3. Bilateral facet joint hypertrophy is identified the L2-L3, L3-L4 L4-5 and L5-S1 levels. 4. No instability is noted between the flexion and extension views. 5. No lytic or blastic lesions. 6. Osteoarthritis involves the sacroiliac joints bilaterally. Narrative 10/20/2014 11:01 AM EDT EXAMINATION: LSPINE 2 OR 3 VIEWS CLINICAL HISTORY: back pain ?instability, need standing AP and lateral FLEX-EX TECHNIQUE: Standing AP and lateral flexion and extension COMPARISON: MRI February 18, 2014. FINDINGS: No recent or acute fracture is identified. Diffuse degenerative changes are noted in the visualized lower thoracic and lumbar spine. Bilateral facet joint hypertrophy is identified the L2-L3, L3-L4 L4-5 and L5-S1 levels. Schmorl's node is identified involving the L2 vertebra. ??No instability is noted between the flexion and extension views. No lytic or blastic lesions are identified. Osteoarthritis involves the sacroiliac joints bilaterally. Mural calcifications involve the abdominal aorta. Procedure Note Myron Gardner MD - 10/20/2014 EXAMINATION: LSPINE 2 OR 3 VIEWS CLINICAL HISTORY: back pain ?instability, need standing AP and lateralFLEX-EX TECHNIQUE: Standing AP and lateral flexion and extension COMPARISON: MRI February 18, 2014. FINDINGS: No recent or acute fracture is identified. Diffuse degenerative changesare noted in the visualized lower thoracic and lumbar spine. Bilateral facetjoint hypertrophy is identified the L2-L3, L3-L4 L4-5 and L5-S1 levels.Schmorl's node is identified involving the L2 vertebra. No instability is noted betweenthe flexion and extension views. No lytic or blastic lesions are identified. Osteoarthritis involves the sacroiliac joints bilaterally. Mural calcifications involve the abdominal aorta. IMPRESSION IMPRESSION: 1. No recent or acute fracture. 2. Diffuse degenerative changes are noted in the visualized lower thoracicand lumbar spine. 3. Bilateral facet joint hypertrophy is identified the L2-L3, L3-L4 L4-5and L5-S1 levels. 4. No instability is noted between the flexion and extension views. 5. No lytic or blastic lesions. 6. Osteoarthritis involves the sacroiliac joints bilaterally. S Anjel Anderson MD IMG DX ORDERABLES documented in this encounter Visit Diagnoses Diagnosis Epidural lipomatosis Lipoma of other specified sites documented in this encounter Care Teams Warehouse Team Leader Relationship Specialty Start Date End Date Adam Grey MD [facility] [address] [place] [address] PCP - General 10/20/14 12/04/16 documented as of this encounter
--- OUTSIDE RECORDS SUMMARY | 2024-03-05 10:41 | XMS_ITS | Encounter Summary ---
Author Organization [facility] Address [facility] [place] [address] Care Team Providers Care Product Safety Lead Name Role Phone Андрей Espinoza MD Primary Care Provider [phone] Encounter Details Date Type Department Care Team (Late st Contact Info) Description 06/03/2014 Orders [place] [address] Jay Valadez MD [facility] [place] [address] Social History Tobacco Use Types [...] Office [place] [address] Ananya Torres, REGISTERED DIETETIC TECHNICIAN 03/26/2024 9:00 AM EDT Appointment Non-[place] [address] Ronnie Jamil MD [address] [place] [address] [place] [address] 03/26/2024 11:30 AM ED[place] [address] Ronnie Jamil MD [address] [facility] [address] [place] [address] 03/26/2024 2:30 PM EDT Appointment [place] [address] 03/26/2024 4:30 PM EDT [place] [address] Ronnie Jamil MD [address] [address] [place] [address] 04/01/2024 8:00 AM EDT Office [place] [address] Ananya Torres, REGISTERED DIETETIC TECHNICIAN 04/15/2024 8:00 AM EDT Office [place] [address] Ananya Torres, REGISTERED DIETETIC TECHNICIAN 04/29/2024 8:00 AM EDT Office [place] [address] Ananya Torres, REGISTERED DIETETIC TECHNICIAN documented as of this encounter Procedures Procedure Name Priority Date/Time Associated Diagnosis Comments FILM LIBRARY STORAGE ONLY DX SPINE Routine 06/03/2014 3:10 PM EST documented in this encounter Results * Film Library- Storage only DX Spine (06/03/2014 3:10 PM EST) Anatomical Region Laterality Modality Other 06/03/2014 3:10 PM EST Narrative 06/03/2014 3:11 PM EST This is a Non-reportable exam Procedure Note GINA, UNSIGNED REPORT - 06/03/2014 This is a Non-reportable exam Jay Valadez MD G FILM LIBRARY ORD ERABLES documented in this encounter Visit Diagnoses Not on filedocumented in this encounter Care Teams Product Safety Lead Relationship Specialty Start Date End Date Андрей Espinoza MD PCP - General 06/14/10 10/19/14 documented as of this encounter
--- OUTSIDE RECORDS SUMMARY | 2024-03-05 10:41 | XMS_ITS | Encounter Summary ---
Author Organization [place] [address] Care Team Providers Care Tandem Mill Operator Name Role Phone Андрей Espinoza MD Primary Care Provider [phone] Reason for Visit * Reason Onset Date Comments Other 06/05/2013 CATH WORK UP Encounter Details Date Type Department Care Team (Late st Contact Info) Description 06/05/2013 Telephone Cardiology at [address] [address] Lila Mccall Other (CATH WORK UP) Social History Tobacco Use Types Packs/Day Years Used Date Smoking Tobacco: Former Cigarettes Q uit: 10/09/2010 Sex and Gender Information Value Date Recorded Sex Assigned at Not on file Gender Identity Not on file Sexual Orientation Not on file documented as of this encounter Miscellaneous Notes * Telephone Encounter - Lila Mccall - 06/05/2013 4:36 PM EST Name: Elias Pennington Referring Doctor:SANDOVAL Procedure Date: May AT 10:30 Diagnosis:ANGINAF Diabetic Y/N, meds: N Coumadin present Y/N:N IV Dye or Contrast Allergy Y/N:N Hx: scanned Order status: Done Patient will be expecting phone teaching call LILA MCCALL 06/05/2013 documented in this encounter Plan of Treatment Upcoming Encounters Date Type Department Care Team (Late st Contact Info) Description 03/11/2024 8:00 AM EDT Office [place] [address] Ananya Torres, ACIDIZER 03/26/2024 9:00 AM EDT Appointment Non-Invasive [place] [address] Ronnie Jamil MD [address] [place] [address] [place] [address] 03/26/2024 11:30 AM EDT Appointment MRI at [place] [address] Ronnie Jamil MD [address] [place] [address] [place] [address] 03/26/2024 2:30 PM EDT Appointment Neurodiagnostic at [place] [address] 03/26/2024 4:30 PM EDT Office Visit Neurology at [place] [address] Ronnie Jaiml MD [address] [place] [address] [place] [address] 04/01/2024 8:00 AM EDT Office Visit Speech Therapy at [place] [phone] Ananya Torres, ACIDIZER 04/15/2024 8:00 AM EDT Office Visit Speech Therapy at [place] [address] Ananya Torres, ACIDIZER 04/29/2024 8:00 AM EDT Office Visit Speech Therapy at [place] [address] Ananya Torres, ACIDIZER documented as of this encounter Visit Diagnoses Not on filedocumented in this encounter Care Teams Tandem Mill Operator Relationship Specialty Start Date End Date Андрей Espinoza MD PCP - General 06/14/10 10/19/14 documented as of this encounter
--- OUTSIDE RECORDS SUMMARY | 2024-03-05 10:41 | XMS_ITS | Encounter Summary ---
Author Organization [facility] Address [address] [place] [address] Care Team Providers Care Pyrotechnist Name Role Phone Unavailable Primary Care Provider Unavailabl e Encounter Details Date Type Department Care Team (Late st Contact Info) Description 02/10/2008 Before PRISM Converted Visit (Maple) [facility] Medicine [address] [address] [place] [address] [place] [address] [id number] Social History Tobacco Use Types Packs/Day Years Used Date Smoking Tobacco: Never Assessed Sex and Gender Information Value Date Recorded Sex Assigned at Not on file Gender Identity Not on file Sexual Orientation Not on file documented as of this encounter Plan of Treatment Not on file documented as of this encounter Procedures Procedure Name Priority Date/Time Associated Diagnosis Comments SURGICAL PATHOLOGY Routine 02/10/2008 0:00 EDT documented in this encounter Results * SURGICAL PATHOLOGY (02/10/2008 0:00 EDT) Pathology Report: SURGICAL PATHOLOGY REPORT ? Reports generated via electronic interface contain original data; ? however they are lacking the format of the original report. ? Caution should be taken when reading/interpretin g unformatted reports. ? Name: ? ELIAS PEREZ ? Accession #: ? [id number] ? : ? 1960 (Age: 47) ??M ? Collect Date: ? 02/10/2008 ? Location: ? [facility] ? Receive Date: ? 02/10/2008 ? Provider: THAI LION MD ? Copy to: CHEIKH AJAMIE MD ? Final Pathologic Diagnosis: ? A. ?Stomach, antrum, biopsies: ? 1. ?Reactive gastropathy. ? B. ?Stomach, biopsies: ? 1. ?Oxyntic-type mucosa with no specific pathologic features. ? C. ?? Esophagus esophageal gastric junction biopsy: ? 1. ?Hypertrophic and reactive squamous mucosa with features suggestive of ?gastroesophageal reflux disease. ??See comment. ? D. ?? Small bowel, terminal ileum, biopsies: ? 1. ?Ileal mucosa with benign lymphoid aggregates and no specific ? pathologic features. ? E. ?Colon, random, biopsies: ? 1. ?Colonic mucosa with no specific pathologic features. ? F. ?Colon, random sigmoid, biopsies: ? 1. ?Colonic mucosa with focal superficial acute colitis and acute basal ?? cryptitis, mild. ??See ?comment. ? G. ?Rectum, biopsies: ? 1. ?Rectal mucosa with no specific pathologic features. ? Comment: ? The specimen from the 'EG junction (specimen C) demonstrates thickened ? reactive squamous mucosa with basal cell hyperplasia, chronic inflammation, ? elongation of the papillae, and vascular congestion. ??These features, though no diagnostic, are suggestive of gastroesophageal reflux disease. ??There is no ? columnar mucosa identified in the biopsy. ??The random sigmoid biopsies (specimen F) show focal superficial colitis with underlying mild, acute basal cryptitis. ?? There are no architectural changes to suggest chronicity. ??These findings are ?? nonspecific and may represent a self-limited (infectious) colitis or drug ? effect. ??Clinical correlation is advised. ??(Dr. Forbes)/mpl ? Document reviewed and electronically signed by: ? Remy Forbes MD ? Report ??Date: 02/14/2008 16:57 ? By the signature above, the attending physician certifies that he/she has ? personally conducted a gross and/or microscopic examination of the described ? specimens and rendered or confirmed the above diagnosis. ? Specimen(s) Received: ? A. ?Bx antrum (#1) ? B. ? Bx gastric body (#2) ? C. ? Bx EG junction (#3) ? D. ? Bx terminal ileum (#4) ? E. ? Bx random colon (#5) ? F. ? Bx random sigmoid (#6) ? G. ? Bx rectum (#7) ? Clinical History: ? Rectal bleeding, dyspepsia, h/o colitis with rectal bleeding. ? Gross Description: ? Received in [employer]'s fixative labelled Perez and 1 ??bx antrum are two biopsies measuring 0.2 x 0.2 x 0.2 cm and 0.4 x 0.3 x 0.3 cm. ??The specimens are submitted intact as (A). ? Received in [employer]'s fixative labelled Gorge and 2 ??bx gastric body are two biopsies measuring 0.3 x 0.3 x 0.2 cm and 0.7 x 0.3 x 0.2 cm. ??The specimens are submitted intact as (B). ? Received in [employer]e's fixative labelled Perez and 3 ??bx EG junction is a ? single biopsy measuring 0.2 x 0.2 x 0.2 cm. ??The specimen is submitted intact as (C). ? Received in [employer]'s fixative labelled Perez and 4 ??bx terminal ileum is a 0.3 x 0.3 x 0.3 cm biopsy. ??The specimen is submitted intact as (D). ? Received in [employer]'s fixative labelled Gorge and 5 ??bx random colon are ? five biopsies which vary in size from 0.2 x 0.1 x 0.1 cm up to 0.6 x 0.2 x 0.1 ?? cm. ??The specimens are submitted intact as (E1) and (E2). ? Received in [employer]'s fixative labelled Perez and 6 ??bx random sigmoid are ?? six biopsies which vary in size from 0.2 x 0.2 x 0.1 cm up to 0.6 x 0.3 x 0.2 ?? cm. ??The specimens are submitted intact as (F1) and (F2). ? Received in [employer]'s fixative labelled Perez and 7 ??bx rectum are four ? biopsies which vary in size from 0.2 x 0.2 x 0.2 cm up to 0.4 x 0.3 x 0.2 cm. ?? The specimens are submitted intact as (G1) and (G2). ??(MIRIAM Burks)/lulik ? End of Report ? [facility] M[facility]S 02/10/2008 02/10/2008 18: 16 EDT Thai Lion MD PATHOLOGY ORDERABLES [facility] [address] [place] [address] documented in this encounter Visit Diagnoses Not on filedocumented in this encounter
--- OUTSIDE RECORDS SUMMARY | 2024-03-05 10:41 | XMS_ITS | Encounter Summary ---
Author Organization Count Includes [facility] Address [facility] [place] [address] Care Team Providers Care Network Control Operator Name Role Phone Андрей Espinoza MD Primary Care Provider [phone] Encounter Details Date Type Department Care Team (Late st Contact Info) Description 06/10/2013 9:35 AM EST - 06/10/2013 10:35 AM EST Surgery [place] [phone] Андрей Somers MD [facility] [place] [address] CARDIAC CATHETERIZATION Social History Tobacco Use Types [...] encounter Discharge Instructions * Discharge Instructions* Maritza Andre, RN - 06/10/2013 3:53 PM EST Activity [...] by your doctor, do not take any [id number] medicines or herbal preparations without first discussing this with your doctor or pharmacist. There is the possibility of side effect and interactions when these are combined. Follow up Care Who to Call with Questions or Problems If there are any questions or problems that you think might be related to your cardiac cath or angioplasty, contact the heel splitter promotions intern by calling [facility] at . Reviewed Discharge instructions with [...] with his right hand. Leander Pulido MD Director Electronics Pager# [phone] * Maritza Andre RN - 06/10/2013 4:[address] Ron in to see pt and he is holding pressure on radial artery. MM * Rocío Purdy RN - 06/10/2013 3:[address] Sullivan to bedside to assess. Pulse present- wrist achey- Dr Desouza aware also 15:45 Dr Somers in [address]- made aware update given to Maritza HIGGINS - * Jim Mcbride - 06/10/2013 12:18 PM EST ABSORB III SCREEN FAILURE NOTE ABSORB III RANDOMIZED CONTROLLED TRIAL A Clinical Evaluation of Absorb??? BVS, the Everolimus Eluting Bioresorbable Vascular Scaffold in the Treatment of Subjects with de erica [place] Coronary Artery Lesions PI: Paul Goss MD Pager #:[phone] Research Coordinators: Jim Mcbride, BS, BA, SATELLITE DISH TECHNICIAN Pager #:[phone] Gonzales Rhodes, RN Pager #: [phone] Purpose: The pivotal trial to support the [place] pre-market approval (PMA) of Absorb BVS. ABSORB III will evaluate the safety and effectiveness of the Absorb BVS System compared to the XIENCE in the treatment of subjects, including those with diabetes mellitus, with ischemic heart disease caused by up to two denovo [place] coronary artery lesions in separate epicardial vessels. [...] Target lesion(s) must be located in a [place] coronary artery with a visually estimated or quantitatively assessed %DS of ? 50% and < 100% with a RENAY flow of ? 1 and one of the following: stenosis ? 70%, an abnormal functional test (e.g., fractional flow reserve, stress test), unstable anginaor post-infarct angina. a. Lesion(s) must be located in a [place] coronary artery with RVD by visual estimation of ? 2.50 mmand ? 3.75 mm. b. Lesion(s) must be located in a [place] coronary artery with length by visual estimation [...] the Treatment of Subjects with de erica [place] Coronary Artery Lesions PI: Paul Goss MD Pager #:[phone] Research Coordinators: Jim Mcbride, BS, BA, SATELLITE DISH TECHNICIAN Pager #:[phone] Gonzales Rhodes, RN Pager #: [phone] Purpose: The pivotal trial to support the [place] pre-market approval (PMA) of Absorb BVS. ABSORB III will evaluate the safety and effectiveness of the Absorb BVS System compared to the XIENCE in the treatment of subjects, including those with diabetes mellitus, with ischemic heart disease caused by up to two denovo [place] coronary artery lesions in separate epicardial vessels. [...] Pre-Procedural H&P Patient Name: Elias Pennington : [id number] y.o. MR#: [id number] Chief Complaint: chest pain Planned Procedure: Coronary [...] Upcoming Encounters Date Type Department Care Team ([facility] st Contact Info) Description 03/11/2024 8:00 AM EDT Office [place] [phone] Ananya Torres, SALES AND SERVICE AGENT 03/26/2024 9:00 AM EDT Appointment Non[place] [phone] Ronnie Jamil MD [address] [place] [address] [place] [address] 03/26/2024 11:30 AM [place] [phone] Ronnie Jamil MD [address] [place] [address] [place] [address] 03/26/2024 2:30 PM EDT Appointment [place] [phone] 03/26/2024 4:30 PM EDT [place] [phone] Ronnie Jamil MD [address] [place] [address] [place] [address] 04/01/2024 8:00 AM EDT Office [place] [phone] Ananya Torres SLP 04/15/2024 8:00 AM EDT Office [place] [phone] Ananya Torres SLP 04/29/2024 8:00 AM EDT Office [place] [phone] Ananya Torres SLP documented as of this [...] (Bezet) 435 ms MUSE SYSTEM Calculated P Wilkinson 56 degrees MUSE SYSTEM Calculated R Wilkinson 5 degrees MUSE SYSTEM Calculated T Wilkinson 20 degrees MUSE SYSTEM INTERPRETATION Normal sinus [...] Coronary atherosclerosis of unspecified type of vessel, [place] or graft ASCVD (arteriosclerotic cardiovascular disease) Unspecified [...] Given 06/10/2013 11:05 AM EST 25 mg fentaNYL 50mcg/mL injection ONCE PRN, Starting on Sun06/10/13 at 1115, Until Sun06/10/13 at 1228, Pain, Intra-Operative (Intra-Procedure), Routine Given 06/10/2013 11:15 AM EST 25 mcg Left Arm heparin (porcine) injection ONCE PRN, Starting on Sun06/10/13 at 1150, Until Sun06/10/13 at 1228, Cath (Intra-Procedure), Routine Given 06/10/2013 11:50 AM EST 5,000 Units iohexol (OMNIPAQUE) 350 mg iodine/mL injection ONCE PRN, Starting on Sun06/10/13 at 1215, Until Sun06/10/13 at 1228, Per Protocol, Cath (Intra-Procedure), Routine Given 06/10/2013 12:15 PM EST 75 mLs midazolam (VERSED) injection ONCE PRN, Starting on Sun06/10/13 at 1115, Until Sun06/10/13 at 1228, Sleep, Cath (Intra-Procedure), Routine Given 06/10/2013 11:15 AM EST 1 mg Left Arm nitroGLYCerin 100 mcg/mL intracoronary dilution ONCE PRN, Starting on Sun06/10/13 at 1144, Until Sun06/10/13 at 1228, Cath (Intra-Procedure), Routine Given 06/10/2013 11:44 AM EST 200 mcg sodium chloride 0.9% infusion 200 mL/hr, Intravenous, CONTINUOUS, Starting on Sun06/10/13 at 1045, Until Sun06/10/13 at 1228, Cath (Day of Procedure) New Bag 06/10/2013 10:45 AM EST 200 mL/hr 200 mL/hr sodium chloride 0.9% infusion CONTINUOUS PRN, Starting on Sun06/10/13 at 1201, Until Sun06/10/13 at 1228, Cath (Intra-Procedure) New Bag 06/10/2013 12:01 PM EST 300 mLs sodium chloride 0.9% infusion 100 mL/hr, Intravenous, CONTINUOUS, Starting on Sun06/10/13 at 1245, Until Sun06/10/13 at 1444 New Bag 06/10/2013 12:42 PM EST 100 mL/hr 100 mL/hr verapamil (ISOPTIN) injection ONCE PRN, Starting on Sun06/10/13 at 1143, Until Sun06/10/13 at 1228, Administer over 2 Minutes, Cath (Intra-Procedure) Given 06/10/2013 11:43 AM EST 2.5 mg documented in this encounter Active [...] MD) documented in this encounter Care Teams Network Control Operator Relationship Specialty Start Date End Date Андрей Espinoza MD PCP - General 06/14/10 10/19/14 documented as of this encounter
--- OUTSIDE RECORDS SUMMARY | 2024-03-05 10:41 | XMS_ITS | Encounter Summary ---
Author Organization [facility] Address [facility] [place] [address] Care Team Providers Care Residential Lawn Specialist Name Role Phone Андрей Espinoza MD Primary Care Provider [phone] Encounter Details Date Type Department Care Team (Late st Contact Info) Description 06/05/2013 Orders Only Cardiology at [address] [phone] Emily Mi PA [facility] [place] [address] ASCVD (arteriosclerotic cardiovascular disease) (Primary Dx) Social History Tobacco Use Types Packs/Day Years Used Date Smoking Tobacco: Former Cigarettes Q uit: 10/09/2010 Sex and Gender Information Value Date Recorded Sex Assigned at Not on file Gender Identity Not on file Sexual Orientation Not on file documented as of this encounter Procedure Notes * Provider, Scanning - 06/10/2013 12:40 PM ESTAssociated Order(s): CARDIAC CATHETERIZATION documented in this encounter Plan of Treatment Upcoming Encounters Date Type Department Care Team (Late st Contact Info) Description 03/11/2024 8:00 AM EDT Office Visit [place] [phone] Ananya Torres, DENTURE FINISHER 03/26/2024 9:00 AM EDT Appointment Non-Invasive [place] [address] Ronnie Jamil MD [address] [address] [place] [address] 03/26/2024 11:30 AM EDT Appointment MRI at [place] [phone] Ronnie Jamil MD [address] [address] [place] [address] 03/26/2024 2:30 PM EDT Appointment Neurodiagnostic at [place] [phone] 03/26/2024 4:30 PM EDT Office Visit Neurology at [place] [phone] Ronnie Jamil MD [address] [place] [address] [place] [address] 04/01/2024 8:00 AM EDT Office Visit [place] [address] Ananya Torres, DENTURE FINISHER 04/15/2024 8:00 AM EDT Office Visit [place] [address] Ananya Torres, DENTURE FINISHER 04/29/2024 8:00 AM EDT Office Visit [place] [address] Ananya Torres, DENTURE FINISHER documented as of this encounter Procedures Procedure Name Priority Date/Time Associated Diagnosis Comments CARDIAC CATHETERIZATION Routine 06/10/2013 12:29 PM EST ASCVD (arteriosclerotic cardiovascular disease) documented in this encounter Results * Cardiac Catheterization (06/10/2013 12:29 PM EST) Anatomical Region Laterality Modality Other Narrative 06/10/2013 5:02 PM EST Procedure Note Provider, Scanning - 06/10/2013 12:40 PM EST Андрей Wilson MD CARDIAC CATH ORDERAB LES documented in this encounter Visit Diagnoses Diagnosis ASCVD (arteriosclerotic cardiovascular disease)- Primary Unspecified cardiovascular disease ASCVD (arteriosclerotic cardiovascular disease) Unspecified cardiovascular disease documented in this encounter Care Teams Residential Lawn Specialist Relationship Specialty Start Date End Date Андрей Espinoza MD PCP - General 06/14/10 10/19/14 documented as of this encounter
--- OUTSIDE RECORDS SUMMARY | 2024-03-05 10:41 | XMS_ITS | Referral Summary ---
Author Organization [facility] Address [address] [place] [address] Care Team Providers Care Certified Respiratory Therapist Name Role Phone Андрей Coello MD Primary Care Provider [phone] Social History Tobacco Use Types Packs/Day Years Used Date Smoking Tobacco: Never Assessed Sex and Gender Information Value Date Recorded Sex Assigned at Not on file Gender Identity Not on file Sexual Orientation Not on file Plan of Treatment Not on file Care Teams Certified Respiratory Therapist Relationship Specialty Start Date End Date Андрей Coello [place] [place] [address] PCP - General 08/23/22
--- OUTSIDE RECORDS SUMMARY | 2024-03-05 10:41 | XMS_ITS | Clinical Summary ---
Author Organization [facility] Address [address] [place] [address] Care Team Providers Care Wafer Abrading Machine Tender Name Role Phone Андрей Coello MD Primary Care Provider [phone] Social History Tobacco Use Types Packs/Day Years Used Date Smoking Tobacco: Never Assessed Sex and Gender Information Value Date Recorded Sex Assigned at Not on file Gender Identity Not on file Sexual Orientation Not on file Plan of Treatment Health Maintenance Due Date Last Done Comments Hepatitis C Screen 1960 RSV Immunization ( o r 60+ Years) (1 - 1-dose 60+ series) 2021 COVID-19 Vaccine (2022-24 season) 2023 Care Teams Wafer Abrading Machine Tender Relationship Specialty Start Date End Date Андрей Coello MD [address] [place] [address] PCP - General 08/23/22
--- OUTSIDE RECORDS SUMMARY | 2024-03-05 10:41 | XMS_ITS | Encounter Summary ---
Author Organization [facility] Address [address] [place] [address] Care Team Providers Care Computer Customer Support Specialist Name Role Phone Unknown, Provider Primary Care Provider [phone] Encounter Details Date Type Department Care Team (Late st Contact Info) Description 02/03/2015 Results Only [facility] [phone] Tate Kinney, DO [address] [place] [address] Social History Tobacco Use Types Packs/Day Years Used Date Smoking Tobacco: Never Assessed Sex and Gender Information Value Date Recorded Sex Assigned at Not on file Gender Identity Not on file Sexual Orientation Not on file documented as of this encounter Plan of Treatment Not on file documented as of this encounter Procedures Procedure Name Priority Date/Time Associated Diagnosis Comments SURGICAL PATHOLOGY Routine 02/03/2015 9:03 EDT documented in this encounter Results * SURGICAL PATHOLOGY (02/03/2015 9:03 EDT) Pathology Report: SURGICAL PATHOLOGY REPORT Reports generated via electronic interface contain original data; however they are lacking the format of the original report. Caution should be taken when reading/interpreting unformatted reports. Name: ? ELIAS PEREZ ? Accession #: ? [id number] ? : ? 1960 (Age: 54) ??M ? Collect Date: ? 02/03/2015 ? Location: ? [facility] ? Receive Date: ? 02/03/2015 ? Provider: TATE KINNEY DO Copy to: EMANUEL CHEW MD ? Final Pathologic Diagnosis: ANUS, SKIN TAG, EXCISION: - ??Fibroepithelial polyp (skin tag). - ??Negative for dysplasia. See comment. Comment: Computer Patternmaker sections of this case were reviewed at the intradepartmental consultation conference. Deeper sections examined (1). Document reviewed and electronically signed by: MIREYA MILIAN MD Report ??Date: 02/09/2015 13:01 By the signature above, the attending physician certifies that he/she has personally conducted a gross and/or microscopic examination of the described specimens and rendered or confirmed the above diagnosis. Specimen(s) Received: Anal skin tag Clinical History: Rectal bleeding Gross Description: ? Received in formalin labelled with proper patient identification (initials R, B) and anal skin tag is a pedunculated polypoid tissue covered by pink-white wrinkled skin (1.9 x 0.9 x 0.7 cm). The margin is inked blue. ??The specimen is quadrisected and entirely submitted in 1 and 2. Nara Duarte 02/04/2015 10:56 AM End of Report [facility] 02/03/2015 9:03 EDT 02/03/2015 9:03 EDT Tate Kinney DO PATHOLOGY ORDERABLES [facility] [address] [place] [address] documented in this encounter Visit Diagnoses Not on filedocumented in this encounter Care Teams Computer Customer Support Specialist Relationship Specialty Start Date End Date Unknown, Provider, PCP - General 07/29/10 08/22/22 documented as of this encounter
--- OUTSIDE RECORDS SUMMARY | 2024-03-05 10:41 | XMS_ITS | Encounter Summary ---
Author Organization [facility] Address [address] [place] [address] Care Team Providers Care Labor Employment Associate Name Role Phone Unknown, Provider Primary Care Provider [phone] Encounter Details Date Type Department Care Team (Late st Contact Info) Description 01/17/2017 Historical Results Only [facility] - Main [address] [address] Toby Song MD [address] [place] [phone] Social History Tobacco Use Types Packs/Day Years Used Date Smoking Tobacco: Never Assessed Sex and Gender Information Value Date Recorded Sex Assigned at Not on file Gender Identity Not on file Sexual Orientation Not on file documented as of this encounter Plan of Treatment Not on file documented as of this encounter Procedures Procedure Name Priority Date/Time Associated Diagnosis Comments COMPLETE BLOOD COUNT WITH DIFFERENTIAL (AUTO) Routine 01/17/2017 15:55 EDT BASIC METABOLIC PANEL (BMP) Routine 01/17/2017 15:55 EDT documented in this encounter Results * BASIC METABOLIC PANEL (BMP) (01/17/2017 15:55 EDT) BUN [facility] 13 7 - 18 mg/dL 01/17/2017 17:11 EDT [facility] CALCIUM [facility] 9.0 8.5 - 10.1 mg/dL 01/17/2017 17:11 [facility] Chloride 105 98 - 107 mEq/L 01/17/2017 17:11 [facility] CO2 Total 27 21 - 32 mEq/L 01/17/2017 17:11 [facility] CREATININE 0.81 0.5 - 1.3 mg/dL 01/17/2017 17:11 [facility] eGFR >60 01/17/2017 17:11 [facility] Comment: Chronic renal impairment is defined as GFR <60 Multiply result by 1.210 for patients. Anion Gap 8 5 - 15 01/17/2017 17:11 [facility] GLUCOSE - [facility] 83 70 - 100 mg/dL 01/17/2017 17:11 [facility] Potassium 4.1 3.5 - 5.0 mEq/L 01/17/2017 17:11 [facility] Sodium 140 135 - 145 mEq/L 01/17/2017 17:11 [facility] 01/17/2017 15:5 5 EDT 01/17/2017 15:55 EDT Toby Song MD CHEMISTRY & BLOOD G ORDERABLES [facility] * COMPLETE BLOOD COUNT WITH DIFFERENTIAL (AUTO) (01/17/2017 15:55 EDT) ABSOLUTE NEUTROPHIL COUN - [facility] 4.71 1.7 - 7.0 10e3/ul 01/17/2017 16:45 EDT [facility] BASO # - CV 0.03 0.0 - 0.3 10e3/uL 01/17/2017 16:45 [facility] BASO % - [facility] 0 0 - 2 % 01/17/2017 16:45 [facility] EOS # - [facility] 0.14 0.05 - 0.5 10e3/uL 01/17/2017 16:45 [facility] EOS % - [facility] 2 0 - 5 % 01/17/2017 16:45 [facility] GRAN % - [facility] 61 40 - 80 % 01/17/2017 16:45 [facility] HEMATOCRIT - [facility] 42.5 36.0 - 52.0 % 01/17/2017 16:45 [facility] HEMOGLOBIN - [facility] 13.9 13.7 - 17.5 g/dl 01/17/2017 16:45 [facility] IG# - [facility] 0.01 0 - 0.07 10e3/uL 01/17/2017 16:45 [facility] IG% - [facility] 0.1 0 - 0.9 % 01/17/2017 16:45 [facility] LYMPH # - [facility] 2.41 0.9 - 2.9 10e3/uL 01/17/2017 16:45 [facility] LYMPH% - [facility] 31 20 - 40 % 01/17/2017 16:45 [facility] MEAN CORPUSCULAR HGB - [facility] 27.5 26 - 34 pg 01/17/2017 16:45 [facility] MEAN CORPUSCULAR HGB CONC - [facility] 32.7 31 - 36 g/dL 01/17/2017 16:45 [facility] MEAN CELL VOLUME - [facility] 84.2 77 - 100 fl 01/17/2017 16:45 [facility] MONO # - [facility] 0.38 0.3 - 0.9 10e3/uL 01/17/2017 16:45 [facility] MONO% - [facility] 5 0 - 12 % 01/17/2017 16:45 [facility] PLATELET COUNT 192 150 - 400 10e3/ul 01/17/2017 16:45 [facility] RED BLOOD COUNT - [facility] 5.05 4.3 - 5.7 10e6/ul 01/17/2017 16:45 [facility] RED CELL DISTRI WIDTH - [facility] 13.9 11.8 - 15.6 % 01/17/2017 16:45 [facility] WHITE BLOOD COUNT - [facility] 7.7 3.5 - 10.5 10e3/ul 01/17/2017 16:45 EDT [facility] 01/17/2017 15:5 5 EDT 01/17/2017 15:55 EDT Toby Song MD HEMATOLOGY & PF4 OR DERABLES [facility] documented in this encounter Visit Diagnoses Not on filedocumented in this encounter Care Teams Labor Employment Associate Relationship Specialty Start Date End Date Unknown, Provider, PCP - General 07/29/10 08/22/22 documented as of this encounter
--- OUTSIDE RECORDS SUMMARY | 2024-03-05 10:41 | XMS_ITS | Encounter Summary ---
Author Organization [facility] Address [facility] [place] [address] Care Team Providers Care Bag Sealer Name Role Phone Adam Grey MD Primary Care Provider [phone] Reason for Referral * Physical Therapy (Routine) - Specialty Diagnoses / Procedures Referred By Contac t Referred To Contact Physical Therapy Diagnoses Epidural lipomatosis Larry Anderson MD [facility] [address] [place] [address] Referral ID Status Reason Start Date Expiration Date V isits Requested Visits Authorized [id number] Evaluate and Treat 10/20/2014 04/18/2015 12 12 Reason for Visit * Reason Comments Low Back Pain Bilateral Leg Pain Encounter Details Date Type Department Care Team (Late st Contact Info) Description 10/20/2014 9:15 AM EDT Office Visit [facility] [place] [phone] aLrry Anderson MD [facility] [address] [place] [address] Epidural lipomatosis Discharge Disposition: Home Social History Tobacco Use Types Packs/Day Years Used Date Smoking Tobacco: Former Cigarettes Q uit: 10/09/2010 Smokeless Tobacco: Never Sex and Gender Information Value Date Recorded Sex Assigned at Not on file Gender Identity Not on file Sexual Orientation Not on file documented as of this encounter Last Filed Vital Signs Vital Sign Reading Time Taken Comments Blood Pressure 173/87 10/20/2014 9:37 AM EDT Pulse - - Temperature - - Respiratory Rate - - Oxygen Saturation - - Inhaled Oxygen Concentration - - Weight 138.8 kg (306 lb) 10/20/2014 9:37 AM EDT Height 182.9 cm (6') 10/20/2014 9:37 AM EDT Body Mass Index 41.5 10/20/2014 9:37 AM EDT documented in this encounter Progress Notes * Larry Anderson MD - 10/20/2014 11:34 AM EDT Patient is referred for lumbar stenosis by Dr. Valadez. Mr. Pennington is a 54-year-old man with a history of coronary stenting, depression, chronic pain syndrome, and longstanding disability. He presents with longstanding back and leg pain. His pain syndrome dates back to a farm injury as a youngster. For many years, he has managed his back pain with oral Vicodin. In recent years, he had to change primary care physicians and his new physician is no longer willing to prescribe him Vicodin. He says that he has had progressive worsening of his pain syndrome. Back pain is by far the greater part of the problem. He says his pain is 80% in his back and 20% in his legs. He describes pain that ranges from a 6 to a 9/10. The pain in his legs in principally in the posterior thighs. He notices the pain with walking or standing, but he does not find any relief with sitting or forward flexion. He has tried both gabapentin and tramadol, neither of which he tolerated. He had a single epidural steroid injection, which gave him no benefit. Bowel and bladder function is normal. In reviewed his MRI personally. It demonstrates partial sacralization of L5. There is central stenosis at L3-4 and L4-5, which is the result of epidural lipomatosis, not spondylosis. There is no significant associated foraminal stenosis. While there are some broad-based disk bulges, these do not cause impressive lateral recess stenosis. The conus terminates normally at the thoracolumbar junction. Past medical history is significant for coronary artery stenting, hypertension, diabetes, hyperlipidemia, obstructive sleep apnea, chronic pain syndrome, and depression. Medications and allergies are up to date. The patient takes aspirin. Family history is negative for bleeding disorders or anesthetic complications. Social History: The patient does not use tobacco and does not use alcohol. He is on chronic disability, but cannot be sure which diagnosis actually gave him disability. He is significantly overweight. He weighs over 300 pounds and is 6 feet tall. Review of systems is negative for shortness of breath or unexplained weight loss. His angina resolved with his right coronary artery stenting. Physical examination reveals an obese man in moderate discomfort as he tried to move around the exam room. He gives straight forward but simple answers to questions during history taking. He has 5/5 power in the iliopsoas, quadriceps, dorsiflexors, EHL, and plantarflexors bilaterally. He states that his entire right leg from the inguinal crease down on the ventral and dorsal surface has decreased sensation compared to his left. There is no dermatomal element to his complaint. Straight leg raise recreates back pain. He walks with a stooped posture. He has multiple positive Edgar signs. There is tenderness over a diffuse area of the lower back; he has pain with simulated loading; nondermatomal sensory complaints. Impression: Mr. Pennington is a 54-year-old man who presents with a principally axial back pain syndrome in the setting of epidural lipomatosis. He has multiple positive Edgar signs as well as multiple risk factors for poor outcome after surgery, including chronic narcotic use, depression, and chronic disability. I obtained some flexion-extension x-rays today that demonstrate no instability to explain his axial pain. I had a lengthy conversation with Mr. Pennington and his friend, explaining that while surgical decompression might alleviate lower extremity symptoms, it would not be expected to help someone whose principal pain is in their back. I think the best thing he could do for his overall pain syndrome would be weight loss and core muscle strengthening. I discussed the functional jainism program with him, but he lives too far away and does not think that this would be feasible. He is, however, interested in physical therapy and I gave him a prescription for this. Twenty-five minutes of this 45-minute visit were spent in direct [id number] counseling. documented in this encounter Plan of Treatment Upcoming Encounters Date Type Department Care Team (Late st Contact Info) Description 03/11/2024 8:00 AM EDT Office [place] [phone] Ananya Torres, MANAGER OF CONSTRUCTION 03/26/2024 9:00 AM EDT Appointment Non[place] [address] Ronnie Jamil MD [address] [place] [address] [facility] [place] [address] 03/26/2024 11:30 AM EDT Appointment MRI [place] [facility] [place] [address] Ronnie Jamil MD [address] [place] [address] [place] [address] 03/26/2024 2:30 PM EDT Appointment [place] [address] 03/26/2024 4:30 PM EDT Office [place] [address] Ronnie Jamil MD [address] [place] [address] [place] [address] 04/01/2024 8:00 AM EDT Office [place] [address] Ananya Torres, MANAGER OF CONSTRUCTION 04/15/2024 8:00 AM EDT Office [place] [address] Ananya Torres, MANAGER OF CONSTRUCTION 04/29/2024 8:00 AM EDT Office [place] [address] Ananya Torres, MANAGER OF CONSTRUCTION Scheduled Referrals Name Type Priority Associated Diagnoses Orde r Schedule Referral to Physical Therapy Outpatient Referral Routine Epidural lipomatosis Ordered: 10/20/2014 documented as of this encounter Results * XR lumbar spine [...] Epidural lipomatosis Lipoma of other specified sites Epidural lipomatosis Lipoma of other specified sites documented in this encounter Care Teams Bag Sealer Relationship Specialty Start Date End Date Adam Grey MD [facility] [address] [place] [address] PCP - General 10/20/14 12/04/16 documented as of this encounter
--- OUTSIDE RECORDS SUMMARY | 2024-03-05 10:41 | XMS_ITS | Encounter Summary ---
Author Organization [facility] [place] [address] Care Team Providers Care Game Agent Name Role Phone Adam Grey MD Primary Care Provider [phone] Reason for Visit * Consultation (Routine) - Closed Specialty Diagnoses / Procedures Referred By Chin helm Referred To Contact Dermatology Diagnoses persistent rash right hand Adam Grey MD [facility] [address] [place] [address] Deepak Olson MD [address] [place] [address], [facility] [place] [address] Referral ID Status Reason Start Date Expiration Date V isits Requested Visits Authorized [id number] Closed Connection Center 06/23/2015 06/22/2016 1 1 Encounter Details Date Type Department Care Team (Late st Contact Info) Description 09/02/2015 8:15 AM EST Office Visit Dermatology at [address] [place] [address] Deepak Olson MD [address] [place] [address], [facility] [place] [address] Lichen simplex chronicus Social History Tobacco Use Types Packs/Day Years Used Date Smoking Tobacco: Former Cigarettes Q uit: 10/09/2010 Smokeless Tobacco: Never Sex and Gender Information Value Date Recorded Sex Assigned at Not on file Gender Identity Not on file Sexual Orientation Not on file documented as of this encounter Progress Notes * Deepak Olson MD - 09/02/2015 8:29 AM EST Problem: Right dorsal hand rash. Elias is a 55-year-old gentleman who for at least three to four years has had an occasionally pruritic, hyperkeratotic rash on the right dorsal hand. He states that it is itchy, but he tries not to scratch it. He has been given clobetasol cream to use by various physicians without benefit. He denies any rash anywhere else. The patient is disabled. He states that he spends his days pretty much inactive and does not have any particular hobbies or use his hands working or doing any craft-type things. The patient is seen in consultation today for Adam Grey M.D. Physical examination reveals hyperkeratotic plaques, one on the right dorsal hand medially, and a more linear plaque with light erythema over the right dorsal mid hand. These are consistent with lichen simplex chronicus. He also has some smaller plaques over the MCPs and proximal PIPs of his fingers-the fifth, fourth, and third. Assessment and Plan: Lichen simplex chronicus. a. Unclear as to what the initial trigger for this was. b. Intermittent pruritus and itching is keeping these hyperkeratotic and active. c. We discussed the need to stop the [id number] cycle. We will advance from creams to intralesional Kenalog injection. Today after obtaining informed patient consent, both were injected with Kenalog 5 mg/mL; a total of 3 mL was injected between both sites. d. Return to clinic in another month for repeat check and probable repeat injection. I explained to the patient the probable need for at least one more repeat injection. COPY: Adam Grey M.D. documented in this encounter Plan of Treatment Upcoming Encounters Date Type Department Care Team ([facility] st Contact Info) Description 03/11/2024 8:00 AM EDT Office [place] [address] Ananya Torres, VIKI 03/26/2024 9:00 AM EDT Appointment Non-[place] [address] Ronnie Jamil MD [address] [address] [place] [address] 03/26/2024 11:30 AM EDT [place] [address] Ronnie Jamil MD [address] [address] [place] [address] 03/26/2024 2:30 PM EDT Appointment [place] [address] 03/26/2024 4:30 PM EDT Office [place] [address] Ronnie Jamil MD [address] [address] [place] [address] 04/01/2024 8:00 AM EDT Office [place] [address] Ananya Torres, [employer] SUPERVISOR 04/15/2024 8:00 AM EDT Office [place] [address] Ananya Torres, [employer] SUPERVISOR 04/29/2024 8:00 AM EDT Office [place] [address] Ananya Torres, [employer] SUPERVISOR documented as of this encounter Visit Diagnoses Diagnosis Lichen simplex chronicus Lichenification and lichen simplex chronicus documented in this encounter Care Teams Game Agent Relationship Specialty Start Date End Date Adam Grey MD [facility] 1 [facility] [place] [address] PCP - General 10/20/14 12/04/16 documented as of this encounter
[2024-03-05 17:13] LABS: Anion Gap 14.7 mmol/L (3-11); BUN 15 mg/dL (7-18); CO2 24.3 mmol/L (21.0-32.0); CREATININE 0.8 mg/dL (0.70-1.30); Calcium 9.4 mg/dL (8.5-10.1); Chloride 101 mmol/L (98-107); Estimated GFR 99.44 (mL/min/1.73m2); Glucose 167 mg/dL (74-106); Potassium 4.5 mmol/L (3.5-5.1); Sodium 140 mmol/L (136-145)
== END 2024-03-05 10:38 | disposition home or self-care (01) ==
LOC: NCHCN 10:37
PROVIDERS: PCP Family Medicine; Visit Provider Student in an Organized Health Care Education/Training Program
DX: I10 Essential (primary) hypertension (principal)
CPT/HCPCS: 80048; 83735

== ENCOUNTER → 2024-03-10 08:56 | Outpatient (BNVA) | payer MEDICARE, SELFPAY | PROVIDERS: PCP Family Medicine; Referring Provider Family Medicine; Visit Provider Nurse Practitioner Gerontology | DX: N43.3 Hydrocele, unspecified (principal) | CPT/HCPCS: 99215 ==

== ENCOUNTER 2024-03-31 09:37 | Day surgery (SDC) | payer MEDICARE, SELFPAY ==
[2024-03-31] VITALS (11 sets, daily range): BP systolic 110–115; BP diastolic 56–77; PULSE 60–71; RESP 10–18; TEMP 36.2–36.6; O2SAT 96–98; BMI 38.6
--- NOTE | 2024-03-31 10:44 | W.PM.HP.N ---
Date of service: 03/31/24 Time of Service: 10:44 Assessment and Plan Assessment and plan (1) Left hydrocele: Status: Acute Assessment and plan: Since he is symptomatic, he comes in for left hydrocelectomy. We will also incise the penile adhesion under the same anesthetic. History of Present Illness History of Present Illness Chief Complaint: Left hydrocele Narrative: This is a 64-year-old gentleman who has an increasing mass in the left hemiscrotum. He tells me that he first noticed the swelling about 6 weeks ago. He does not recall any specific trauma to the scrotum. On ultrasound, he has a normal testis with a large hydrocele surrounding the testis. Since he is symptomatic from the hydrocele, he presents for hydrocelectomy. In addition to the hydrocele, he does have a penile adhesion between the glans and the penile skin at the frenulum. He is asking for a frenulectomy at the same time. Review of Systems Narrative: No fevers or chills Decreased hearing acuity. No vision change or dysphasia History of diabetes. Sleep apnea . No hemoptysis No chest pain or palpitations No nausea, vomiting, hepatitis, ulcers, jaundice, diarrhea or constipation Intermittent expressive aphasia. Tremor. No seizures, strokes or peripheral neuropathy No bleeding disorders or anemia Spinal stenosis. No gout PFSH All Active Problems (Updated 03/31/24 @ 12:05 by Flako Aguilar MD) Left hydrocele (Acute) Tubular adenoma of colon (Acute ~09/18/22) ASCVD (arteriosclerotic cardiovascular disease) (Acute) Loose stools (Acute) Enlarged liver (Acute) Coronary artery calcification seen on CAT scan (Acute) Hypothyroid (Chronic) Diverticulitis (Chronic) Rectal/anal hemorrhage (Acute) Intention tremor (Acute 01/08/13) Candidal intertrigo (Acute) Tinnitus (Acute) Sensorineural hearing loss of both ears (Acute) Chest pain (Acute) Left rotator cuff tear (Acute) Biceps tendinitis of left shoulder (Acute) Bursitis of left shoulder (Acute) DJD of left AC (acromioclavicular) joint (Acute) Left carpal tunnel syndrome (Acute) Screening for colon cancer (Acute) Left shoulder pain (Acute) Elevated bilirubin (Acute) Lung nodule (Acute) Trochanteric bursitis of both hips (Acute) Hearing loss in right ear (Acute) Lateral epicondylitis (Acute) Memory impairment (Acute) Dyspepsia (Acute) Angina pectoris (Chronic) Adhesive capsulitis of left shoulder (Acute) Lumbar spinal stenosis (Acute) Subclinical hypothyroidism (Acute) Anxiety (Chronic) Depression (Chronic) Vitamin deficiency (Acute) Medical History (Updated 03/31/24 @ 12:05 by Flako Aguilar MD) Lower urinary tract symptoms Hx of type 2 diabetes mellitus Diabetic peripheral neuropathy Chronic back pain Spinal stenosis Surgical History History of colonoscopy with polypectomy (~09/18/22) Hx of knee surgery right Coronary Stent x3 Colonoscopy - MAC Family History Father Heart disease Social History Smoking/Tobacco Use Status: Former Tobacco Use Quit Date: 07/23/97 Tobacco: How many years used: 29 Smoking risk assessment performed?: Yes Alcohol Intake: former Year quit: 1997 Drug use: Daily Substance use type: marijuana Details: Last use 03/29/24 Housing: apartment Current gender identity: male What type of physical activity do you participate in: walking Duration: < 15 minutes/day Frequency: 3-4 times per week Do you feel safe at home: Yes Do you feel safe in your relationship?: Yes Meds Allergies and Home Medications Allergies Allergy/AdvReac Type Severity Reaction Status Date / Time NIGEL Inhibitors AdvReac Cough Verified 03/31/24 10:26 codeine AdvReac Nausea Verified 03/31/24 10:26 gabapentin AdvReac vision Verified 03/31/24 10:26 trouble, dizzy,nausea lisinopril AdvReac cough Verified 03/31/24 10:26 Home Medications ?Medication ?Instructions ?Recorded ?Confirmed ?Type fluocinonide-emollient 0.05 % 60 g topical PRN PRN ##1 05/21/13 03/28/24 History topical cream (Fluocinonide-E) metformin 500 mg tablet,extended 1,000 mg PO BID 05/20/14 03/31/24 History release 24 hr levothyroxine 25 mcg tablet 25 mcg PO DAILY 02/25/15 03/31/24 History acetaminophen 500 mg tablet 500 mg PO Q8H PRN PRN 06/16/18 03/28/24 History (Tylenol Extra Strength) cholecalciferol (vitamin D3) 25 1,000 unit PO DAILY 06/16/18 03/31/24 History mcg (1,000 unit) capsule (Vitamin D3) tamsulosin 0.4 mg capsule (Flomax) 0.4 mg PO DAILY 06/16/18 03/31/24 History aspirin 81 mg tablet,delayed 81 mg PO DAILY 05/08/19 03/28/24 History release (Adult Low Dose Aspirin) empagliflozin 25 mg tablet 25 mg PO DAILY 05/08/19 03/31/24 History (Jardiance) ketoconazole 2 % topical cream 1 applic topical BID PRN 05/08/19 03/28/24 History paroxetine HCl 30 mg tablet 30 mg PO DAILY 05/08/19 03/31/24 History triamcinolone acetonide 0.1 % 1 applic topical BID PRN 05/08/19 03/28/24 History topical cream nitroglycerin 0.4 mg sublingual 0.4 mg sublingual PRN PRN chest 10/12/20 03/28/24 Rx tablet (Nitrostat) pain #10 tabs furosemide 20 mg tablet 20 mg PO DAILY #90 tabs 11/16/20 03/31/24 Rx dulaglutide 0.75 mg/0.5 mL 1.5 mg subcut QWEEK 02/14/21 03/28/24 History subcutaneous pen injector (Trulicity) metoprolol tartrate 50 mg tablet 50 mg PO BID 02/14/21 03/31/24 History atorvastatin 80 mg tablet 40 mg PO DAILY 03/06/23 03/31/24 History losartan 25 mg tablet 25 mg PO DAILY #90 tabs 08/06/23 03/31/24 Rx cyclobenzaprine 10 mg tablet 10 mg PO TID PRN 03/10/24 03/28/24 History Exam Narrative Exam Narrative: He is an obese gentleman in no obvious distress His vital signs are documented elsewhere His neck is thick but supple He does not appear short of breath at rest. His lungs are clear Cardiac exam shows a regular rate and rhythm His abdomen is obese but soft with no guarding or rebound tenderness The left hemiscrotum is diffusely enlarged with no overlying erythema or ecchymosis There is an adhesion between the glans and penile skin ventrally in the region of the frenulum. No fluctuance is found in this area He is awake and alert Results Last Vital Signs Temp 36.6 C 03/31/24 10:32 Pulse 60 03/31/24 10:32 Resp 18 03/31/24 10:32 BP 110/65 03/31/24 10:32 Pulse Ox 97 03/31/24 10:32 Time Spent Time spent with Patient: <40 minutes Time was spent: other
--- NOTE | 2024-03-31 12:22 | W.ANESPRE ---
General Info Date of Service Date Performed: 03/31/24 Height: 6 ft Weight: 129.1 kg Body Mass Index (BMI): 38.6 Surgical Procedure: Operation Date: 03/31/24 12:10 Proposed Procedure Side Surgeon p Hydrocelectomy Left Flako Aguilar MD Meds Allergies and Home Medications Allergies Allergy/AdvReac Type Severity Reaction Status Date / Time NIGEL Inhibitors AdvReac Cough Verified 03/31/24 10:26 codeine AdvReac Nausea Verified 03/31/24 10:26 gabapentin AdvReac vision Verified 03/31/24 10:26 trouble, dizzy,nausea lisinopril AdvReac cough Verified 03/31/24 10:26 Home Medication ?Medication ?Instructions ?Recorded fluocinonide-emollient 0.05 % 60 g topical PRN PRN ##1 05/21/13 topical cream (Fluocinonide-E) metformin 500 mg tablet,extended 1,000 mg PO BID 05/20/14 release 24 hr levothyroxine 25 mcg tablet 25 mcg PO DAILY 02/25/15 acetaminophen 500 mg tablet 500 mg PO Q8H PRN PRN 06/16/18 (Tylenol Extra Strength) cholecalciferol (vitamin D3) 25 1,000 unit PO DAILY 06/16/18 mcg (1,000 unit) capsule (Vitamin D3) tamsulosin 0.4 mg capsule (Flomax) 0.4 mg PO DAILY 06/16/18 aspirin 81 mg tablet,delayed 81 mg PO DAILY 05/08/19 release (Adult Low Dose Aspirin) empagliflozin 25 mg tablet 25 mg PO DAILY 05/08/19 (Jardiance) ketoconazole 2 % topical cream 1 applic topical BID PRN 05/08/19 paroxetine HCl 30 mg tablet 30 mg PO DAILY 05/08/19 triamcinolone acetonide 0.1 % 1 applic topical BID PRN 05/08/19 topical cream nitroglycerin 0.4 mg sublingual 0.4 mg sublingual PRN PRN chest 10/12/20 tablet (Nitrostat) pain #10 tabs furosemide 20 mg tablet 20 mg PO DAILY #90 tabs 11/16/20 dulaglutide 0.75 mg/0.5 mL 1.5 mg subcut QWEEK 02/14/21 subcutaneous pen injector (Trulicity) metoprolol tartrate 50 mg tablet 50 mg PO BID 02/14/21 atorvastatin 80 mg tablet 40 mg PO DAILY 03/06/23 losartan 25 mg tablet 25 mg PO DAILY #90 tabs 08/06/23 cyclobenzaprine 10 mg tablet 10 mg PO TID PRN 03/10/24 Current Visit Medications: Current Medications Generic Name Dose Route Start Last Admin Trade Name Sydq PRN Reason Stop Dose Admin Ringer's Solution 1,000 mls @ 80 mls/hr 03/31/24 06:00 IV 04/30/24 23:59 INFUSION RAYA Cefazolin Sodium/Dextrose 2 gm in 50 mls @ 100 mls/hr 03/31/24 06:00 Ancef Duplex IVPB 04/30/24 23:59 PREOP RAYA IV Miscellaneous Supplies 1 each 03/31/24 06:00 Iv Access IV 04/30/24 23:59 DIRECTED RAYA Sodium Chloride 0 ml 03/31/24 06:00 Normal Saline Flush 10 Ml Syr IV 04/30/24 23:59 PRN PRN Sodium Chloride 0 ml 03/31/24 06:00 Normal Saline 10 Ml Vial IJ 04/30/24 23:59 DIRECTED PRN Sterile Water 0 ml 03/31/24 06:00 Water,Injection,Sterile 10 Ml Vial IJ 04/30/24 23:59 DIRECTED PRN PFSH Active Problems Active Problems: Problem Status Onset Code Left hydrocele Acute N43.3 Tubular adenoma of colon Acute ~09/18/22 D12.6 ASCVD (arteriosclerotic cardiovascular disease) Acute I25.10 Loose stools Acute R19.5 Enlarged liver Acute R16.0 Coronary artery calcification seen on CAT scan Acute I25.10 Hypothyroid Chronic E03.9 Diverticulitis Chronic K57.92 Rectal/anal hemorrhage Acute K62.5 Intention tremor Acute 01/08/13 G25.2 Candidal intertrigo Acute B37.2 Tinnitus Acute H93.19 Sensorineural hearing loss of both ears Acute H90.3 Chest pain Acute R07.9 Left rotator cuff tear Acute M75.102 Biceps tendinitis of left shoulder Acute M75.22 Bursitis of left shoulder Acute M75.52 DJD of left AC (acromioclavicular) joint Acute M19.012 Left carpal tunnel syndrome Acute G56.02 Screening for colon cancer Acute Z12.11 Left shoulder pain Acute M25.512 Elevated bilirubin Acute R17 Lung nodule Acute R91.1 Trochanteric bursitis of both hips Acute M70.61, M70.62 Hearing loss in right ear Acute H91.91 Lateral epicondylitis Acute M77.10 Memory impairment Acute R41.3 Dyspepsia Acute R10.13 Angina pectoris Chronic I20.9 Adhesive capsulitis of left shoulder Acute M75.02 Lumbar spinal stenosis Acute M48.061 Subclinical hypothyroidism Acute E03.8 Anxiety Chronic F41.9 Depression Chronic F32.A Vitamin deficiency Acute E56.9 Medical History Medical History (Updated 03/31/24 @ 12:05 by Flako Aguilar MD) Lower urinary tract symptoms Hx of type 2 diabetes mellitus Diabetic peripheral neuropathy Chronic back pain Spinal stenosis Surgical History Surgical History History of colonoscopy with polypectomy (~09/18/22) Hx of knee surgery right Coronary Stent x3 Colonoscopy - MAC Tobacco Smoking/Tobacco Use Status: Former Tobacco Use Alcohol Alcohol Intake: former Year quit: 1997 Substance Use Substance use: Daily Substance use type: marijuana Details: Last use 03/29/24 Vital Signs and Lab Results Vital Signs Most Recent Vital Signs in EMR: Most Recent Vital Signs Temp Pulse Resp BP Pulse Ox 36.6 C 60 18 110/65 97 03/31/24 10:32 03/31/24 10:32 03/31/24 10:32 03/31/24 10:32 03/31/24 10:32 Point of Care Results Point of Care Results: Finger Stick Blood Glucose 165 03/31/24 10:36 Lab Results Blood Type / Crossmatch: No Data to Display Complete Blood Count: No Data to Display Complete Metabolic Panel: Sodium 140 mmol/L (136-145) 03/05/24 10:23 Potassium 4.5 mmol/L (3.5-5.1) 03/05/24 10:23 Chloride 101 mmol/L (98-107) 03/05/24 10:23 Carbon Dioxide 24.3 mmol/L (21.0-32.0) 03/05/24 10:23 BUN 15 mg/dL (7-18) 03/05/24 10:23 Creatinine 0.8 mg/dL (0.70-1.30) 03/05/24 10:23 Est GFR (CKD-EPI 2020) 99.44 (mL/min/1.73m2) 03/05/24 10:23 Magnesium 2.0 mg/dL (1.8-2.4) 03/05/24 10:23 Calcium 9.4 mg/dL (8.5-10.1) 03/05/24 10:23 Glucose 167 mg/dL (74-106) H 03/05/24 10:23 Liver Function Panel: No Data to Display Coagulation Panel: No Data to Display Cardiac Panel: No Data to Display Arterial Blood Gas: No Data to Display Venous Blood Gas: No Data to Display Pancreas Panel: No Data to Display Thyroid Panel: No Data to Display Infectious Disease: No Data to Display Blood Cultures: No Data to Display Toxicology Panel: No Data to Display Imaging and Studies Imaging and Studies Study information below may be from another EMR and interpreted by another provider. Please see original notes in EMR for more complete details. EKG Summary: Sinus rhythm...normal P axis, V-rate 60- 99 Stress Test Summary: 1. The patient exercised for 4 minutes and 34 seconds (6.5 METS). 2. The patient had symptoms of dyspnea as well as chest pressure. 3. There were no EKG changes suggestive of ischemia. Echocardiogram Summary: LV EF 55% - no valvular disease, no segmental wall motion. MRI Summary: MRI angiogram 03/26/24 - No intercranial arterial abnormalities Carotid Artery Summary:: No evidence for hemodynamically significant carotid stenosis. Anesthesia Assessment and Plan Anesthesia History Personal History: No History of Anesthesia Complications Family History: No Family History of Anesthesia Complications Exercise Tolerance Exercise Tolerance: Metabolic Equivalents<4 Pertinent Negatives Pertinent Negatives: No Symptoms of GERD, No Major Cardiovascular Symptoms or Complaints (Hx of STENTS ) and No Major Pulmonary Symptoms or Complaints (WILLIS, currently not compliant with CPAP) Cardiac & Pulmonary Exam Cardiac Exam: Normal S1/S2 Heart Sounds Pulmonary Exam: Clear Bilateral Breath Sounds Implantable Cardiac Device Does patient have a Pacemaker or an ICD?: No Airway Exam Known Difficult Airway: No Mallampati Class: 3 Mouth Opening: Narrow (< 3cm) Thyromental Distance: Greater than 3 cm Facial Hair: Full [place] Neck Range of Motion: Limited ROM Neck Circumference: Thick Teeth Condition: Generalized Poor Dentition and Advised tooth loss possible given current condition (indicate tooth) ASA Classification ASA Score: ASA 3 Emergency Case?: No NPO Status NPO Status: NPO Clears >2 hours, Solids >8 hours Anesthesia Plan Resuscitation Status: Full Code Anesthesia Technique: General Anesthesia Airway Planned: LMA Monitors Used: Standard Monitors
[2024-03-31] MEDS: Lactated Ringers 1,000 ML 80 ML IV (12:41)
[2024-03-31] MEDS: ceFAZolin 2 GM/50 ML BAG IVPB (12:54)
[2024-03-31] MEDS: Bupivacaine 0.25% Pres-Free 30 ML VIAL (13:17)
--- NOTE | 2024-03-31 13:32 | W.PM.DSUDISC ---
Date of service: 03/31/24 Time of Service: 13:32 Discharge Plan Disposition Patient Disposition: Home Discharge Details Reason For Visit: hydrocele Attending Provider: Flako Aguilar Primary Care Provider: Dandy Hodges Home Meds and New Rx's Prescriptions: No Action metoprolol tartrate 50 mg tablet 50 mg PO BID Patient Comments: 02/14/21 from PCP list who writes for this medication. RH cyclobenzaprine 10 mg tablet 10 mg PO TID PRN Jardiance 25 mg tablet 25 mg PO DAILY aspirin [Adult Low Dose Aspirin] 81 mg tablet,delayed release (DR/EC) 81 mg PO DAILY paroxetine HCl 30 mg tablet 30 mg PO DAILY triamcinolone acetonide 0.1 % cream 1 applic TP BID PRN ketoconazole 2 % cream 1 applic TP BID PRN nitroglycerin [Nitrostat] 0.4 mg tablet, sublingual 0.4 mg Sublingual PRN PRN (Reason: chest pain) Qty: 10 12RF furosemide 20 mg tablet 20 mg PO DAILY Qty: 90 3RF Trulicity 0.75 mg/0.5 mL pen injector 1.5 mg subcut QWEEK atorvastatin 80 mg tablet 40 mg PO DAILY fluocinonide-emollient [Fluocinonide-E] 60 GM cream 60 g Topical PRN PRNQty: 1 Rx Instructions: use on hands but not elsewhere.HE levothyroxine 25 MCG tablet 25 mcg PO DAILY losartan 25 mg tablet 25 mg PO DAILY Qty: 90 3RF metformin 500 MG tablet extended release 24 hr 1,000 mg PO BID acetaminophen [Tylenol Extra Strength] 500 mg Tablet 500 mg PO Q8H PRN PRN tamsulosin [Flomax] 0.4 mg Capsule 0.4 mg PO DAILY cholecalciferol (vitamin D3) [Vitamin D3] 1,000 unit Capsule 1,000 unit PO DAILY Discharge Instructions Additional Instructions: Follow-up appointment in 2 to 3 weeks Okay to shower starting 04/01/2024 Wear tight supportive undergarments and use ice packs to the scrotum (a bag of frozen peas works well) to help minimize swelling You may use Tylenol and ibuprofen as needed for pain Activity:: Activity as Tolerated Remove Dressings/Wound Care:: 24 hours Shower/Bathe:: 24 hours Discharge Orders Discharge Orders: Discharge Order (Routine); Ordered 03/31/24 Ordered By: Flako Aguilar DS: Diagnosis Discharge Diagnosis (1) Left hydrocele: Status: Acute
--- NOTE | 2024-03-31 13:37 | W.PM.OP ---
Date of service: 03/31/24 Time of Service: 13:37 Operative Note Operative Note DATE OF PROCEDURE: 03/31/24 PRE-OP DIAGNOSIS: 1. Left hydrocele 2. Penile adhesion POST-OP DIAGNOSIS: same PROCEDURE: 1. Lysis of penile adhesion 2. Left hydrocelectomy SURGEON: Flako Aguilar ANESTHESIA TYPE: Local By Surgeon and General LMA/ETT Refer to Anesthesia Record ESTIMATED BLOOD LOSS: 5 PATHOLOGY: none sent COMPLICATIONS: None Patient was transported to: PACU Patient's condition: stable Indications: This is a 64-year-old gentleman who has a history of a large symptomatic left hydrocele. He presents for hydrocelectomy. He mentions an adhesion on the ventral aspect of the penis. On examination there is some scarring there at the frenulum. He requests an incision of the penile adhesion Findings: Large left hydrocele with small keratin pearls Procedure Description: The patient was given preoperative antibiotics and brought to the operating room on 03/31/2024. After successful induction of general anesthesia, he was placed in the supine position. His genitalia and perineum were prepped and draped. I began by infiltrating the area of his penile adhesion with quarter percent Marcaine. I incised the adhesion with a lateral incision then closed the skin edges longitudinally. I utilized 4-0 chromic sutures for the closure. I then did a left scrotal field block using quarter percent Marcaine. A left transverse scrotal incision was made and the incision was extended down through the subcutaneous skin and dartos muscle. The left testis, still within the tunica vaginalis, was then delivered through the incision. We utilized sharp and blunt dissection to dissect additional muscle and connective tissue from the exterior of the tunica vaginalis. The tunica was then opened anteriorly and a large amount of yellow-vera fluid was drained. 2 small keratin pearls were noted and were discarded. The tunica vaginalis was then reapproximated behind the testis using a segment of running 3-0 chromic suture. We locked the sutures for hemostasis. The testis was then delivered back within the left hemiscrotum. The dartos muscle was reapproximated using a running segment of 3-0 chromic. The skin was reapproximated with 4-0 subcuticular Vicryl sutures. Skin glue was applied to the incision site. A fluff dressing and a scrotal support were then applied. The patient tolerated the procedure well with no complications.
--- NOTE | 2024-03-31 14:30 | W.ANESPOSTOP ---
Postoperative Evaluation Date, Time and Location Date Performed: 03/31/24 Time Performed: 14:28 Patient Location: Day Surgery Unit Vital Signs Most Recent Imported Vital Signs: Most Recent Vital Signs Temp Pulse Resp BP Pulse Ox 36.2 C L 60 16 112/76 97 03/31/24 14:02 03/31/24 14:02 03/31/24 14:02 03/31/24 14:02 03/31/24 14:02 Pain Score Most Recent Pain Score: Most Recent Pain Score Pain Level 0 03/31/24 14:02 Assessment Mental Status: Awake (Alert & Oriented to Patient Baseline) Airway and Respiratory Function: Patent airway with normal (patient baseline) respiratory exam Cardiovascular Function: Hemodynamically Stable Hydration Status: Adequately Hydrated Nausea & Vomiting: No Nausea or Vomiting Pain: Pt. Denies Any Pain Peripheral Nerve Block: Patient did not receive a nerve block
== END 2024-03-31 15:07 | disposition home or self-care (01) ==
PROVIDERS: PCP Student in an Organized Health Care Education/Training Program; Visit Provider Urology
PROC: (CPT 55040; principal; 2024-03-31 12:00)
DX: N43.3 Hydrocele, unspecified (principal); N47.5 Adhesions of prepuce and glans penis; E11.42 Type 2 diabetes mellitus with diabetic polyneuropathy; I10 Essential (primary) hypertension; I25.10 Atherosclerotic heart disease of native coronary artery without angina pectoris
CPT/HCPCS: 55040; 54162; J0665; J0690; J1100; J1885; J2001; J2405

== ENCOUNTER 2024-04-04 16:34 | Emergency (ER) | payer MEDICARE, SELFPAY ==
[2024-04-04 16:35] VITALS: BP 129/81; PULSE 67; RESP 12; TEMP 37; O2SAT 95
--- OUTSIDE RECORDS SUMMARY | 2024-04-04 16:46 | XMS_ITS | Encounter Summary ---
Author Organization [facility] [place] [address] Care Team Providers Care Pug Mill Operator Helper Name Role Phone Dandy Hodges Primary Care Provider + Reason for Referral * Diagnostic Test (Routine) - Closed Specialty Diagnoses / Procedures Referred By Contac t Referred To Contact Cardiology Diagnoses TIA (transient ischemic attack) Procedures Echocardiogram Transthoracic Echocardiogram Transthoracic Ronnie Sánchez MD [address] [place] [address] [place] [address] [facility] [place] [address] Referral ID Status Reason Start Date Expiration Date V isits Requested Visits Authorized [id number] Closed Specialty Service Requested 11/22/2023 11/21/2024 1 1 Reason for Visit * Diagnostic Test (Routine) - Closed Specialty Diagnoses / Procedures Referred By Contac t Referred To Contact Cardiology Diagnoses TIA (transient ischemic attack) Procedures Echocardiogram Transthoracic Echocardiogram Transthoracic Ronnie Sánchez MD [address] [place] [address] [place] [address] [facility] [place] [address] Referral ID Status Reason Start Date Expiration Date V isits Requested Visits Authorized [id number] Closed Specialty Service Requested 11/22/2023 11/21/2024 1 1 Encounter Details Date Type Department Care Team (Late st Contact Info) Description 03/26/2024 8:35 AM EDT - 03/26/2024 9:56 AM EDT Hospital Encounter Non-[place] [address] Ronnie Sánchez MD [address] [place] [address] [place] [address] TIA (transient ischemic attack) Discharge Disposition: Home Social History Tobacco Use Types Packs/Day Years Used Date Smoking Tobacco: Former Cigarettes Q uit: 10/09/2010 Smokeless Tobacco: Never Sex and Gender Information Value Date Recorded Sex Assigned at Not on file Gender Identity Not on file Sexual Orientation Not on file documented as of this encounter Medications at Time of Discharge Medication Sig Dispensed Refills Start Date End Date cyclobenzaprine (Flexeril) 5 mg tablet TAKE ONE TO TWO TABLETS BY MOUTH UP TO THREE TIMES A DAY 03/06/2024 aspirin 81 mg chewable tablet Take 81 mg by mouth daily. Trulicity 0.75 mg/0.5 mL Pen Injector 0.75 mg by abdominal subcutaneous route once a week. 10/31/2023 furosemide (Lasix) 20 mg tablet Take 20 mg by mouth daily. 11/02/2023 losartan (Cozaar) 25 mg tablet Take 1 tablet by mouth Daily at Noon. 11/02/2023 tamsulosin (Flomax) 0.4 mg capsule Take 1 capsule by mouth Daily at Noon. 11/02/2023 empagliflozin (JARDIANCE) 25 mg Tablet Take 25 [...] by mouth 2 times daily. Indications: hypertension gabapentin (NEURONTIN) 300 mg Capsule Take 300 mg by mouth daily. isosorbide dinitrate (ISORDIL) 30 mg Tablet Take 30 mg by mouth daily (after breakfast). aspirin 325 mg EC tablet Take 1 tablet by mouth daily. 30 tablet 04/08/2011 amlodipine (NORVASC) 10 mg tablet Take 10 mg by mouth daily. nitroGLYcerin (NITROSTAT) 0.4 mg SL tablet 0.4mg, Sublingual, PRN 05/15/2005 documented as of this encounter Plan of Treatment Upcoming Encounters Date Type Department Care Team (Late st Contact Info) Description 04/15/2024 8:00 AM EDT Office [place] [id number] Ananya Torres, PIN DRAFTER documented as of this encounter Procedures Procedure Name Priority Date/Time Associated Diagnosis Comments ECHO COMPLETE Routine 03/26/2024 10:05 AM EDT TIA (transient ischemic attack) documented in this encounter Results * ECHO COMPLETE (03/26/2024 10:05 AM EDT) Anatomical Region Laterality Modality Cardiac Other 03/26/2024 9:10 AM EDT Narrative 03/26/2024 10:09 AM EDT [address] [place] [id number] ? Echocardiogram Report Name: ELIAS PEREZ ? Study Date: 03/26/2024 09:10 AMBP: 110/38 mmHg ? Patient Location: : 1960 ? Height: 183 cm ? Account: [id number] Age: 64 yrs ? Weight: 128 kg Gender: Male ?BSA: 2.5 m2 Ordering Physician: RONNIE SÁNCHEZ Referring Physician: RONNIE SÁNCHEZ Performed By: USR Exam Location: [facility]. Interpretation Summary Left ventricle is of normal size. Wall thickness is normal. Left ventricular systolic function is normal. The left ventricular ejection fraction is 55% by Thorne's biplane. There are no segmental wall motion abnormalities. The right ventricle is of normal size. Right ventricular systolic function is normal. There is no evidence for a patent foramen ovale visualized with agitated saline. Procedure Complete-[id number]. Satisfactory quality. Left Ventricle Left ventricle is of normal size. Wall thickness is normal. Left ventricular systolic function is normal. The left ventricular ejection fraction is 55% by Thorne's biplane. There are no segmental wall motion abnormalities. Right Ventricle The right ventricle is of normal size. Right ventricular systolic function is normal. Left Atrium The left atrium is normal. There is no evidence for a patent foramen ovale visualized with agitated saline. Right Atrium The right atrium is normal. Aortic Valve The aortic valve is tricuspid. The aortic valve is mildly thickened. There is calcification of the aortic annulus. There is no aortic stenosis. There is no aortic regurgitation. Mitral Valve The mitral valve is structurally normal. There is trace mitral regurgitation. Tricuspid Valve The tricuspid valve is structurally and functionally normal. There is trace tricuspid regurgitation. Pulmonic Valve The pulmonic valve appears to be structurally and functionally normal. Great Arteries The aortic root is of normal size. No abnormalities are identified. Ascending aorta is normal in size. No abnormalities of the pulmonary artery are identified. Venous Inferior vena cava is normal in size. Inferior vena cava collapse greater than 50% with respiration. Pericardium/Pleural The pericardium appears normal. Hemodynamics Pulmonary artery hypertension could not be assessed due to inadequate tricuspid regurgitation jet. Left ventricular filling pressure is normal. Left ventricular diastolic function is normal. Ejection Fraction ?2D Measurements ? Volumes EF(MOD-bp): 55.4 % ?IVSd: 1.1 cm ? LAV(MOD- bp) Indexed: ?LVIDd: 5.8 cm ?LVIDs: 4.9 cm ?21.3 ml/m2 ? RA A4Cs_phl: 15.5 cm2 ?LVPWd: 0.88 cm ? EDV(MOD-bp) Indexed: ?RWT: 0.30 {ratio} ?LV mass(C)d: 230.4 grams ? 42.0 ml/m2 ?LV mass(C)dI: 93.4 grams/m2 ?ESV(MOD- bp) Indexed: ?Ao root diam: 3.6 cm ? 18.7 ml/m2 ?Ao root diam index: 1.5 ?SV(LVOT): 81.4 ml ?asc Aorta Diam: 3.4 cm ?LVOT diam: 2.3 cm ?SI(LVOT): 33.0 ml/m2 ?TAPSE_phl: 1.7 cm Doppler LV V1 VTI: 19.3 cm MV E max justyn: 82.8 cm/sec MV A max justyn: 58.0 cm/sec MV E/A: 1.4 Lat Peak E' Justyn: 9.4 cm/sec E/e' (lat): 8.8 Med Peak E' Justyn: 6.8 cm/sec E/e' (med): 12.1 E/e' Average: 10.5 I ?WMSI = 1.00 ? % Normal = 100 ?Segments ??Size X - Cannot ?2 - ?4 - ?1-2 ? small Interpret ?1 - Normal ?? Hypokinetic 3 - Akinetic Dyskinetic ?? 3-5 ? moderate 5 - ? 6-14 ?large Aneurysmal ?15-16 ?? diffuse Procedure Note Earnest Honeycutt MD - 03/26/2024 [address] [place] [address] Echocardiogram Report Name: PEREZELIAS Study Date: 409:10 AMBP: 110/38 mmHg Patient Location: : 1960 Height: 183 cm Account: [id number] Age: 64 yrs Weight: 128 kg Gender: Male BSA: 2.5 m2 Ordering Physician: RONNIE SÁNCHEZ Referring Physician: RONNIE SÁNCHEZ Performed By: USR Exam Location: [facility]. Interpretation Summary Left ventricle is of normal size. Wall thickness is normal. Leftventricular systolic function is normal. The left ventricular ejection fraction is 55%by Thorne's biplane. There are no segmental wall motion abnormalities. The right ventricle is of normal size. Right ventricular systolic functionis normal. There is no evidence for a patent foramen ovale visualized with agitatedsaline. Procedure Complete-[id number]. Satisfactory quality. Left Ventricle Left ventricle is of normal size. Wall thickness is normal. Leftventricular systolic function is normal. The left ventricular ejection fraction is 55%by Thorne's biplane. There are no segmental wall motion abnormalities. Right Ventricle The right ventricle is of normal size. Right ventricular systolic functionis normal. Left Atrium The left atrium is normal. There is no evidence for a patent foramenovale visualized with agitated saline. Right Atrium The right atrium is normal. Aortic Valve The aortic valve is tricuspid. The aortic valve is mildly thickened. Thereis calcification of the aortic annulus. There is no aortic stenosis. There isno aortic regurgitation. Mitral Valve The mitral valve is structurally normal. There is trace mitralregurgitation. Tricuspid Valve The tricuspid valve is structurally and functionally normal. There istrace tricuspid regurgitation. Pulmonic Valve The pulmonic valve appears to be structurally and functionally normal. Great Arteries The aortic root is of normal size. No abnormalities are identified.Ascending aorta is normal in size. No abnormalities of the pulmonary artery areidentified. Venous Inferior vena cava is normal in size. Inferior vena cava collapse greaterthan 50% with respiration. Pericardium/Pleural The pericardium appears normal. Hemodynamics Pulmonary artery hypertension could not be assessed due to inadequatetricuspid regurgitation jet. Left ventricular filling pressure is normal. Leftventricular diastolic function is normal. Ejection Fraction 2D Measurements Volumes EF(MOD-bp): 55.4 % IVSd: 1.1 cm LAV(MOD-bp)Indexed: LVIDd: 5.8 cm LVIDs: 4.9 cm 21.3 ml/m2 RA A4Cs_phl: 15.5cm2 LVPWd: 0.88 cm EDV(MOD-bp)Indexed: RWT: 0.30 {ratio} LV mass(C)d: 230.4 grams 42.0 ml/m2 LV mass(C)dI: 93.4 grams/m2 ESV(MOD-bp)Indexed: Ao root diam: 3.6 cm 18.7 ml/m2 Ao root diam index: 1.5 SV(LVOT): 81.4ml asc Aorta Diam: 3.4 cm LVOT diam: 2.3 cm SI(LVOT): 33.0ml/m2 TAPSE_phl: 1.7 cm Doppler LV V1 VTI: 19.3 cm MV E max justyn: 82.8 cm/sec MV A max justyn: 58.0 cm/sec MV E/A: 1.4 Lat Peak E' Justyn: 9.4 cm/sec E/e' (lat): 8.8 Med Peak E' Justyn: 6.8 cm/sec E/e' (med): 12.1 E/e' Average: 10.5 I WMSI = 1.00 % Normal = 100 SegmentsSize X - Cannot 2 - 4 - 1-2small Interpret 1 - Normal Hypokinetic 3 - Akinetic Dyskinetic 3-5moderate 5 - 6-14large Aneurysmal 15-16diffuse Ronnie Sánchez MD ECHO ORDERABLES documented in this encounter Visit Diagnoses Diagnosis TIA (transient ischemic attack) Unspecified transient cerebral ischemia documented in this encounter Care Teams Pug Mill Operator Helper Relationship Specialty Start Date End Date Dandy Hodges PA [facility] [place] [address] PCP - General Internal Medicine 03/11/24 documented as of this encounter
--- OUTSIDE RECORDS SUMMARY | 2024-04-04 16:46 | XMS_ITS | Clinical Summary ---
Author Organization [facility] [place] [address] Care Team Providers Care Dictaphone Mechanic Name Role Phone Dandy Hodges Primary Care Provider + Allergies Active Allergy Reactions Criticality Noted Date [...] by mouth Daily at Noon. 11/02/2023 Active cyclobenzaprine (Flexeril) 5 mg tablet TAKE ONE TO TWO TABLETS BY MOUTH UP TO THREE TIMES A DAY 03/06/2024 Active Active Problems Problem Noted Date Diagnosed Date Abnormal stress test 10/15/2020 Overview (10/15/2020): Added automatically from request for surgery [id number] Coronary artery disease 10/15/2020 Overview (10/18/2020): Added automatically from request for surgery [id number] Lichen simplex chronicus 12/13/2015 Spinal stenosis of lumbar region 06/24/2014 CAD (coronary artery disease) 04/07/2011 Overview (04/21/2012): 1. Status post PCI with Cypher CHANELL x 2 in 2002 and 2003 to the RCA 2. Status post PCI with Vision 3.5 x 18 BMS post dilated to 4.0 Knee injuries 04/07/2011 Hyperlipidemia 04/07/2011 Hypertension 04/07/2011 Encounters Date Type Department Care Team Description 03/27/2024 [place] [address] Lore Sánchez MD Appointment 03/26/2024 4:30 PM EDT [place] [address] Lore Sánchez MD Aphasia; Transient neurological symptoms 03/26/2024 11:54 AM EDT - 03/26/2024 11:59 PM EDT Hospital [place] [address] TIA (transient ischemic attack); Aphasia Discharge Disposition: Home 03/26/2024 9:57 AM EDT - 03/26/2024 11:53 AM EDT [place] [address] Lore Sánchez MD TIA (transient ischemic attack) Discharge Disposition: Home 03/26/2024 8:35 AM EDT - 03/26/2024 9:56 AM EDT Hospital Encounter Non-[place] [address] Lore Sánchez MD TIA (transient ischemic attack) Discharge Disposition: Home 03/26/2024 Travel 03/25/2024 [place] [address] Lore Sánchez MD TIA (transient ischemic attack); Aphasia 03/11/2024 8:00 AM EDT Office [place] [address] Ananya Torres, VIKI Cognitive communication deficit 03/11/2024 Travel 02/12/2024 11:00 AM EDT [place] [address] Ananya Torres, HAND TRUCKER Cognitive communication deficit 02/12/2024 Travel 01/31/2024 9:00 AM EDT [place] [address] Ananya Torres, HAND TRUCKER Cognitive communication deficit 01/31/2024 Travel from Last 3 Months Social History Tobacco Use Types Packs/Day Years Used Date Smoking Tobacco: Former Cigarettes Q uit: 10/09/2010 Smokeless Tobacco: Never Tobacco Cessation:Counseling Given: Not Answered Sex and Gender Information Value Date Recorded Sex Assigned at Not on file Gender Identity Not on file Sexual Orientation Not on file Last Filed Vital Signs Vital Sign Reading Time Taken Comments Blood Pressure 132/58 03/26/2024 4:01 PM EDT Pulse 67 03/26/2024 4:01 PM EDT Temperature 36.7 ??C (98.1 ??F) 10/19/2020 4:27 PM ED T Respiratory Rate 16 10/19/2020 4:45 PM EDT Oxygen Saturation 95% 03/26/2024 4:01 PM EDT Inhaled Oxygen Concentration - - Weight 128.4 kg (283 lb) 03/26/2024 4:01 PM EDT Height 182.9 cm (6') 03/26/2024 4:01 PM EDT Body Mass Index 38.38 03/26/2024 4:01 PM EDT Plan of Treatment Upcoming Encounters Date Type Department Care Team (Late st Contact Info) Description 04/15/2024 8:00 AM EDT Office [place] [address] Ananya Torres, HAND TRUCKER Health Maintenance Due Date Last Done Comments CT Colonography 1960 Colonoscopy 1960 Colorectal Cancer Screening 1960 FIT DNA 1960 FIT 1960 Sigmoidoscopy (10 year) with FIT yearly 1960 Sigmoidoscopy 1960 HIV screen 1979 Hepatitis C Screening 1979 Tdap adult 02/24/1980 Tetanus vaccine 02/24/1980 Zoster vaccine (1 of 2) 2011 Advance Directive 02/24/2016 Diabetes Screening (HgbA1C o r Glucose) 10/20/2023 10/19/2020, 04/08/2011, 04/08/2011 Covid-19 Vaccine ( - season) 2024 Influenza (Flu) vaccine (1 o f 1 - Influenza standard series) 03/23/2024 Procedures Procedure Name Priority Date/Time Associated Diagnosis Comments EEG Routine 03/26/2024 3:26 PM EDT TIA (transient ischemic attack) Aphasia MRI HEAD ANGIOGRAM WO CONTRAST Routine 03/26/2024 10:27 AM EDT TIA (transient ischemic attack) ECHO COMPLETE Routine 03/26/2024 10:05 AM EDT TIA (transient ischemic attack) HAND TRUCKER PLAN OF CARE CERT/RE-CERT Routine 01/31/2024 4:22 PM EDT Cognitive communication deficit HC VENIPUNCTURE STAT 10/19/2020 8:18 AM EDT from Last 3 Months or Most Recently Relevant to Health Maintenance Results * EEG (03/26/2024 3:26 PM EDT) Narrative Gio Ruiz MD - 03/26/2024 3:26 PM EDT Gio Ruiz MD ? 03/27/2024 ??3:42 PM [facility] Department of Neurology Outpatient Routine EEG Report Name of the Patient: ??Elias Perez Date of : ?1960 Date of Service: ?03/26/2024 Referring physician: ?Julián Sánchez MD Reading Resident/Fellow: ??Jeannette Hull MD Reading Attending: Gio Ruiz MD Routine EEG start time: 14:43:46 Routine EEG end time: 15:15:59 Total time recorded: 31:05 Indication for EEG: Seizure BRIEF HISTORY: Elias Perez is a 64 y.o. male with events of expressive dysphasia, concern for tia vs sz. MEDICATIONS: No antiseizure medications. PRIOR EEG(s): none METHODS: A 21 channel digitized electroencephalogram was performed in the [facility] Clinical Neurophysiology Laboratory. The 10/20 international system of electrode placement was used and bipolar and referential electrode montages were recorded. ??In addition to EEG the patient was monitored for EKG and lateral/vertical eye movements. Video was recorded during the session. PHYSICIAN ANESTHESIOLOGIST'S REPORT: Performed by: LEE Lacey Patient was sleep deprived. Sleep was attained. Photic stimulation was performed. Hyperventilation was not performed. Effort not applicable. Movement and other artifact was not significant. Comments: ELECTROENCEPHALOGRAPHER'S REPORT Background: The background was continuous, spontaneously reactive, and composed of low voltage activity with well organized anterior to posterior gradient with frontally predominant beta and posterior alpha frequencies. ??There was a 9 Hz posterior dominant rhythm that attenuated with eye opening. Focal Asymmetries: There were no focal asymmetries. Sleep: Drowsiness was characterized by decreased myogenic artifact and increased slowing. ??There were symmetric N2 sleep transients present including sleep spindles and K complexes. ?? Interictal Activity: There were no epileptiform discharges, rhythmic or periodic patterns. Patient Events or Seizures: No patient events or electrographic seizures were recorded. Provocative Maneuvers: Photic stimulation was performed and produced symmetric driving response. Hyperventilation was not performed. EKG: Single lead EKG was regular. NSR. Technical Limitations: Myogenic and environmental artifacts at times obscured the background. INTERPRETATION: This 31-minute outpatient routine EEG was normal during the awake, drowsy, and asleep state(s). CLINICAL CORRELATION: This EEG is within normal limits for state and age. No epileptogenic patterns or discharges were identified. Note that a normal EEG does not rule out epilepsy. Clinical correlation is required. Jeannette Hull MD Epilepsy Fellow PGY-5 03/26/2024 10:56 PM I personally reviewed and interpreted the EEG in its entirety along with Dr. Jeannette Hull, Epilepsy Fellow, and I agree with the above interpretation as documented. Gio Ruiz MD Attending Epileptologist Lore Sánchez MD NEUROLOGY ORDERABLES * MRI Angiogram Head wo Contrast (Generic) (03/26/2024 10:27 AM EDT) WORKSTATION ID [id number] DH RAD Anatomical Region Laterality Modality Head Magnetic Resonan ce Impressions 03/26/2024 1:24 PM EDT No intracranial arterial abnormalities. I have personally reviewed the image(s) and the resident's interpretation and agree with the findings, Venancio Parsons at 03/26/2024 1:24 PM Thank you for letting us participate in the care of this patient. ??If you are a health care provider and have any questions regarding this report, please contact the number below. ??For patients who have questions please contact the health pet care associate that requested your imaging first. ? Narrative 03/26/2024 1:24 PM EDT EXAMINATION: MRI ANGIOGRAM HEAD WO CONTRAST (GENERIC) CLINICAL HISTORY: 63M with episodic expressive aphasia, concern for TIA in setting of multiple vascular risk factors. G45.9, Transient cerebral ischemic attack, unspecified TECHNIQUE: MRA of the head performed without contrast. 3-D MIP reconstructions were created. COMPARISON: None FINDINGS: Internal carotids, vertebral arteries, basilar artery are patent and normal in caliber. Normal course and caliber of the ACAs, MCAs, and substance abuse prevention coordinator. No aneurysms. Hypoplastic left P-comm, normal variant. Visualized brain is unremarkable. Procedure Note Venancio Parsons MD - 03/26/2024 EXAMINATION: MRI ANGIOGRAM HEAD WO CONTRAST (GENERIC) CLINICAL HISTORY: 63M with episodic expressive aphasia, concern for TIAin setting of multiple vascular risk factors. G45.9, Transient cerebral ischemic attack, unspecified TECHNIQUE: MRA of the head performed without contrast. 3-D MIP reconstructions were created. COMPARISON: None FINDINGS: Internal carotids, vertebral arteries, basilar artery are patent andnormal in caliber. Normal course and caliber of the ACAs, MCAs, and substance abuse prevention coordinator. No aneurysms. Hypoplastic left P-comm, normal variant. Visualized brain is unremarkable. IMPRESSION No intracranial arterial abnormalities. I have personally reviewed the image(s) and the resident's interpretationand agree with the findings, Venancio Parsons at 03/26/2024 1:24 PM Thank you for letting us participate in the care of this patient. If youare a health care provider and have any questions regarding this report,please contact the number below. For patients who have questions please contactthe health pet care associate that requested your imaging first. Electronically signed by: CYN Jerome [facility]([phone]), at 03/26/2024 1:24 PM Lore Sánchez MD IMDonaldo MRI ORDERABLES * ECHO COMPLETE (03/26/2024 10:05 AM EDT) Anatomical Region Laterality Modality Cardiac Other 03/26/2024 9:10 AM EDT Narrative 03/26/2024 10:09 AM EDT [address] [place] [address] ? Echocardiogram Report Name: ELIAS PEREZ ? Study Date: 03/26/2024 09:10 AMBP: 110/38 mmHg ? Patient Location: 4A : 1960 ? Height: 183 cm ? Account: [id number] Age: 64 yrs ? Weight: 128 kg Gender: Male ?BSA: 2.5 m2 Ordering Physician: LORE SÁNCHEZ Referring Physician: LORE SÁNCHEZ Performed By: USR Exam Location: [facility]. Interpretation Summary Left ventricle is of normal size. Wall thickness is normal. Left ventricular systolic function is normal. The left ventricular ejection fraction is 55% by Thorne's biplane. There are no segmental wall motion abnormalities. The right ventricle is of normal size. Right ventricular systolic function is normal. There is no evidence for a patent foramen ovale visualized with agitated saline. Procedure Complete-[id number]. Satisfactory quality. Left Ventricle Left ventricle is [...] Note Earnest Honeycutt MD - 03/26/2024 [address] [place] [address] Echocardiogram Report Name: ELIAS PEREZ Study Date: 409:10 AMBP: 110/38 mmHg Patient Location: : 1960 Height: 183 cm Account: [id number] Age: 64 yrs Weight: 128 kg Gender: Male BSA: 2.5 m2 Ordering Physician: LORE SÁNCHEZ Referring Physician: LORE SÁNCHEZ Performed By: USR Exam Location: [facility]. Interpretation Summary Left ventricle is of normal size. Wall thickness is normal. Leftventricular systolic function is normal. The left ventricular ejection fraction is 55%by Thorne's biplane. There are no segmental wall motion abnormalities. The right ventricle is of normal size. Right ventricular systolic functionis normal. There is no evidence for a patent foramen ovale visualized with agitatedsaline. Procedure Complete-[id number]. Satisfactory quality. Left Ventricle Left ventricle is [...] Dyskinetic 3-5moderate 5 - 6-14large Aneurysmal 15-16diffuse Lore Sánchez MD ECHO ORDERABLES * (ABNORMAL) BMP w/fasting Glucose (10/19/2020 8:18 AM EDT) [facility] Signature Glucose Fasting 164(H) 65 - 99 mg/dL [facility] Comment: ?Fasting* Glucose Interpretive Criteria [...] of Diabetes Mellitus, Position Statement from the [place] [employer]. ??Diabetes Care, Volume 33, Supplement 1, Jul 2009 Blood Urea Nitrogen 14 10 - 20 mg/dL [facility] Creatinine 0.73(L) 0.80 - 1.50 mg/dL [facility] Sodium 136 135 - 145 mmol/L [facility] Potassium 4.3 3.5 - 5.0 mmol/L [facility] Comment: Please note: ??Patients with WBC >100,000 may have falsely elevated Potassium levels. ??For accurate Potassium quantification in these patients send serum separator tube (gold top) for subsequent determinations. ??Contact the Clinical Chemistry Laboratory if there are any questions. Chloride 101 98 - 107 mmol/L [facility] Carbon Dioxide 23 22 - 31 mmol/L [facility] Anion Gap 12 5 - 15 mmol/L [facility] Calcium 9.6 8.5 - 10.5 mg/dL [facility] Est Glomerular Filtration Rate 102 >=60 mL/min/1. 73 m?? [facility] Comment: This patient? s estimated [...] In Lab Earnest Aguilera [place] [address] from Last 3 Months or Most Recently [...] is based on Patients wishes. Care Teams Dictaphone Mechanic Relationship Specialty Start Date End Date Dandy Hodges PA [address] [place] [address] PCP - General Internal Medicine 03/11/24
--- OUTSIDE RECORDS SUMMARY | 2024-04-04 16:46 | XMS_ITS | Encounter Summary ---
Author Organization [facility] [place] [address] Care Team Providers Care Booking Prizer Name Role Phone Dandy Hodges Primary Care Provider + Reason for Referral * Diagnostic Test (Routine) - Closed Specialty Diagnoses / Procedures Referred By Contac t Referred To Contact Radiology Diagnoses TIA (transient ischemic attack) Procedures MRI Angiogram Head wo Contrast (Generic) Ronnie Jamil MD [address] [place] [address] [place] [address] [place] [address] Referral ID Status Reason Start Date Expiration Date V isits Requested Visits Authorized [id number] Closed Specialty Service Requested 11/22/2023 05/24/2025 1 1 Reason for Visit * Diagnostic Test (Routine) - Closed Specialty Diagnoses / Procedures Referred By Contac t Referred To Contact Radiology Diagnoses TIA (transient ischemic attack) Procedures MRI Angiogram Head wo Contrast (Generic) Ronnie Jamil MD [address] [place] [address] [place] [address] [place] [address] Referral ID Status Reason Start Date Expiration Date V isits Requested Visits Authorized [id number] Closed Specialty Service Requested 11/22/2023 05/24/2025 1 1 Encounter Details Date Type Department Care Team (Late st Contact Info) Description 03/26/2024 9:57 AM EDT - 03/26/2024 11:53 AM EDT [place] [address] Ronnie Jamil MD [address] [address] [place] [address] TIA (transient ischemic attack) Discharge Disposition: Home [...] AM EDT Office [place] [address] Ananay Torres, UTILITY PIPE LAYER documented as of this encounter Procedures Procedure Name Priority Date/Time Associated Diagnosis Comments MRI HEAD ANGIOGRAM WO CONTRAST Routine 03/26/2024 10:27 AM EDT TIA (transient ischemic attack) documented in this encounter Results * MRI Angiogram Head wo Contrast (Generic) (03/26/2024 10:27 AM EDT) CREAT WORKSTATION ID [id number] RAD Anatomical Region Laterality Modality Head Magnetic [...] who have questions please contact the health health care technician that requested your imaging first. ? Narrative [...] and caliber of the ACAs, MCAs, and front desk auxiliary. No aneurysms. Hypoplastic left P-comm, normal variant. [...] and caliber of the ACAs, MCAs, and front desk auxiliary. No aneurysms. Hypoplastic left P-comm, normal variant. [...] patients who have questions please contactthe health health care technician that requested your imaging first. Electronically signed by: CYN Jerome [facility]([phone]), at 03/26/2024 1:24 PM Ronnie Jamil MD IMG MRI ORDERABLES documented in this encounter Visit Diagnoses Diagnosis TIA (transient ischemic attack) Unspecified transient cerebral ischemia documented in this encounter Care Teams Booking Prizer Relationship Specialty Start Date End Date Dandy Hodges PA [facility] [place] [address] PCP - General Internal Medicine 03/11/24 documented as of this encounter
--- OUTSIDE RECORDS SUMMARY | 2024-04-04 16:46 | XMS_ITS | Encounter Summary ---
Author Organization [facility] [place] [address] Care Team Providers Care Student Admissions Clerk Name Role Phone Dandy Hodges Primary Care Provider + Encounter Details Date Type Department Care Team (Latest Contact Info) Description 03/26/2024 Travel Social History Tobacco Use Types Packs/Day [...] AM EDT Office [place] [address] Ananya Torres, PLEATER documented as of this encounter Visit Diagnoses Not on filedocumented in this encounter Care Teams Student Admissions Clerk Relationship Specialty Start Date End Date Dandy Hod[place] [address] [place] [address] PCP - General Internal Medicine 03/11/24 documented as of this encounter
--- OUTSIDE RECORDS SUMMARY | 2024-04-04 16:46 | XMS_ITS | Encounter Summary ---
Author Organization [facility] [place] [address] Care Team Providers Care [place]bury Machine Operator Name Role Phone Dandy Hodges Primary Care Provider + Reason for Visit * Reason Comments Procedure Encounter Details Date Type Department Care Team (Latest Contact Info) Description 03/26/2024 11:54 AM EDT - 03/26/2024 11:59 PM EDT Hospital [place] [address] TIA (transient ischemic attack); Aphasia Discharge Disposition: Home Social History Tobacco Use [...] PRN 05/15/2005 documented as of this encounter Procedure Notes * Gio Ruiz MD - 03/26/2024 3:26 PM EDTAssociated Order(s): EEG Pre-Procedure Diagnose(s): TIA (transient ischemic attack); Aphasia [facility] Department of Neurology Outpatient Routine EEG Report Name of the Patient: Elias Pennington Date of : 1960 Date of Service: 03/26/2024 Referring physician: Julián Jamil MD Reading Resident/Fellow: Jeannette Hull MD Reading Attending: Gio Ruiz MD Routine EEG start time: 14:43:46 Routine EEG end time: 15:15:59 Total time recorded: 31:05 Indication for EEG: Seizure BRIEF HISTORY: Elias Pennington is a 64 y.o. male with events of expressive dysphasia, concern for tia vs sz. MEDICATIONS: No antiseizure medications. PRIOR EEG(s): none METHODS: A 21 channel digitized electroencephalogram was performed in the [facility] Clinical Neurophysiology Laboratory. The 10/20 international system of electrode placement was used and bipolar and referential electrode montages were recorded. In addition to EEG the patient was monitored for EKGand lateral/vertical eye movements. Video was recorded during the session. ADMINISTRATIVE OFFICE SPECIALIST'S REPORT: Performed by: LEE Lacey Patient was sleep deprived. Sleep was attained. Photic stimulation was performed. Hyperventilation was not performed. Effort not applicable. Movement and other artifact was not significant. Comments: ELECTROENCEPHALOGRAPHER'S REPORT Background: The background was continuous, spontaneously reactive, and composed of low voltage activity with well organized anterior to posterior gradient with frontally predominant beta and posterior alpha frequencies. There was a 9 Hz posterior dominant rhythm that attenuated with eye opening. Focal Asymmetries: There were no focal asymmetries. Sleep: Drowsiness was characterized by decreased myogenic artifact and increased slowing. There were symmetric N2 sleep transients present including sleep spindles and K complexes. Interictal Activity: There were no epileptiform discharges, [...] as documented. Gio Ruiz MD Attending Epileptologist documented in this encounter Plan of Treatment Upcoming Encounters Date Type Department Care Team (Late st Contact Info) Description 04/15/2024 8:00 AM EDT Office [place] [address] Ananya Torres, MEDICAL SUPPORT ASSISTANT documented as of this encounter Procedures Procedure Name Priority Date/Time Associated Diagnosis Comments EEG Routine 03/26/2024 3:26 PM EDT TIA (transient ischemic attack) Aphasia documented in this encounter Results * EEG (03/26/2024 3:26 PM EDT) Narrative Gio Ruiz MD - 03/26/2024 3:26 PM EDT Gio Ruiz MD ? 03/27/2024 ??3:42 PM [facility] Department of Neurology Outpatient Routine EEG Report Name of the Patient: ??Elias Pennington Date of : ?1960 Date of Service: ?03/26/2024 Referring physician: ?Julián Jamil MD Reading Resident/Fellow: ??Jeannette Hull MD Reading Attending: Gio Ruiz MD Routine EEG start time: 14:43:46 Routine EEG end time: 15:15:59 Total time recorded: 31:05 Indication for EEG: Seizure BRIEF HISTORY: Elias Pennington is a 64 y.o. male with events of expressive dysphasia, concern for tia vs sz. MEDICATIONS: No antiseizure medications. PRIOR EEG(s): none METHODS: A 21 channel digitized electroencephalogram was performed in the [facility] Clinical Neurophysiology Laboratory. The 10/20 international system of electrode placement was used and bipolar and referential electrode montages were recorded. ??In addition to EEG the patient was monitored for EKG and lateral/vertical eye movements. Video was recorded during the session. ADMINISTRATIVE OFFICE SPECIALIST'S REPORT: Performed by: LEE Lacey Patient was [...] as documented. Gio Ruiz MD Attending Epileptologist Ronnie Jamil MD NEUROLOGY ORDERABLES documented in this encounter Visit Diagnoses Diagnosis TIA (transient ischemic attack) Unspecified transient cerebral ischemia Aphasia documented in this encounter Care Teams Banbury Machine Operator Relationship Specialty Start Date End Date Dandy Hod[place] [address] [place] [address] PCP - General Internal Medicine 03/11/24 documented as of this encounter
--- OUTSIDE RECORDS SUMMARY | 2024-04-04 16:46 | XMS_ITS | Encounter Summary ---
Author Organization [facility] [place] [address] Care Team Providers Care Hat Maker Name Role Phone Dandy Hodges Primary Care Provider + Reason for Visit * Reason Comments Follow-up Encounter Details Date Type Department Care Team ([facility] st Contact Info) Description 03/26/2024 4:30 PM EDT [place] [phone] Ronnie Jamil MD [address] [place] [address] [place] [address] Aphasia; Transient neurological symptoms Social History Tobacco Use Types Packs/Day Years [...] Pulse 67 03/26/2024 4:01 PM EDT Temperature - - Respiratory Rate - - Oxygen Saturation 95% 03/26/2024 4:01 PM EDT Inhaled Oxygen Concentration - - Weight 128.4 kg (283 lb) 03/26/2024 4:01 PM EDT Height 182.9 cm (6') 03/26/2024 4:01 PM EDT Body Mass Index 38.38 03/26/2024 4:01 PM EDT documented in this encounter Patient Instructions * Patient Instructions* Ronnie Jamil MD - 03/26/2024 4:30 PM EDT - I will update you on the EEG results when they become available. No other neurological testing isrecommended at this time. - Keep track of and monitor your symptoms moving forwards. - Follow-up with your PCP regarding sleep apnea and fatigue -- these are most likely contributing to your symptoms at this time. - Follow-up with eye care provider as instructed by your PCP. - OK for planned urology procedure from a neurology standpoint. I will sent a copy of today's visitto the urologist once you given me their name/contact info. - Return to clinic for follow-up in [...] Goal body mass index of 18.5-25 kg/m2 documented in this encounter Progress Notes * Ronnie Jamil MD - 03/26/2024 4:30 PM EDT [facility] DEPARTMENT OF NEUROLOGY GENERAL NEUROLOGY CLINIC FOLLOW-UP VISIT Patient name: Elias Pennington Date of : 1960 Referring provider: Андрей Coello MD [address] [facility] [address] PCP: RIAN Holbrook [address] [place] [address] Date: 03/26/2024 Time: 04:30 PM CC: Chief Complaint Patient presents with Follow-up HPI/background: Briefly, 64 y.o. R-handed man with a history of CAD (3 stents here at [facility]), HLD, HTN, DMII (HbA1c unclear at this time), lumbar spinal stenosis, WILLIS on CPAP, and MDD initially referred to the [facility] neurology clinic for evaluation of transient neurological symptoms, specifically described as expressive dysphasia. Please see my initial consult note for full HPI, including presenting history. Interval Hx: Patient was last seen as an initial visit in 11/2023. He presents today for 4- month FUV, accompaniedby his . Since last visit, He has had a few more episodes of stuttering. Last episode occurred about a week ago. He reports starting glipizide and getting Trulicity boosted to 1.5 since the last visit. He reports checking his BP more regularly now -- OK range. He denies with chewing or swallowing food. He reports 1 fall since the last visit -- within the last 1.5 months. Does not recall how it occurred initially, but later recalls that it occurred when he coming out of his cellar, running into objects. Had a slight concussion from this. He denies waking up with needing to urinate at times. He is getting schedule for L testicle (hydrocele repair) in the next few days. He reports needing neurology clearance for this procedure. He thinks he is getting general anesthesia for this. PMHx/PSHx: No past medical history on file. No past surgical history on file. Meds: Current Outpatient Medications on File Prior to Visit Medication Sig Dispense Refill cyclobenzaprine (Flexeril) 5 mg tablet TAKE ONE TO TWO TABLETS BY MOUTH UP TO THREE TIMES A DAY aspirin 81 mg chewable tablet Take 81 [...] 0.4mg, Sublingual, PRN No current facility-administered medications on file prior to visit. Allergies: Allergies Allergen Reactions Codeine Nausea Only Isosorbide Other (See Comments) Faint, headaches Lisinopril Other (See Comments) - cough Exam: Vitals: 03/26/24 1601 BP: 132/58 BP Location ([facility]): Right arm Patient Position: Sitting BP Cuff Sizes: Adult (25-34 cm) Pulse: 67 SpO2: 95% Weight: 128.4 kg (283 lb) Height: 182.9 cm (6') General Exam: Appearance: Well-appearing, NAD. HEENT: NCAT. Unable to visualize fundi. Skin: No rash or obvious lesions on exposed skin. Body mass index is 38.38 kg/m??. Neuro Exam: Mental Status: Awake and [...] Plantar deferred deferred Schneider's negative positive Coordination/Gait: Rgwmmf-pf-eiuf intact bilaterally. No dysmetria. Gait partially antalgic, otherwise able to rise from seated position unassisted and ambulate without help. Labs/Data/Results: - No interval labs/data. Imaging: - MRI brain w/o contrast (03/26/24) FINDINGS: Internal carotids, vertebral arteries, basilar artery are patent and normal in caliber. Normal course and caliber of the ACAs, MCAs, and remediation technician. No aneurysms. Hypoplastic left P-comm, normal variant. Visualized brain is unremarkable. IMPRESSION No intracranial arterial abnormalities. Assessment: Problem List Items Addressed This Visit None Visit Diagnoses Aphasia Transient neurological symptoms 63 y.o. R-handed man with a history of CAD (3 stents here at [facility]), HLD, HTN, DMII (HbA1c unclear at this time), lumbar spinal stenosis, WILLIS on CPAP, and MDD referred to the [facility] neurology clinic forevaluation of transient neurological symptoms, [...] Recommendations: - BP control per PCP. - F/u with PCP regarding untreated WILLIS and fatigue. - OK to hold ASA 81mg daily for now pending L testicular surgery (?hydrocele repair). There is no neurological contraindication or specific precautions to planned surgery at this time. Would obtain general medical clearance if needed -- defer to urology provider. - LDL and HbA1c management per PCP. C/w statin. - Optimization of cardiac risk factors. - Will f/u rEEG results once available. - Patient expressed understanding of the above. All questions were answered. - RTC 3-4 months. Thank you for your referral and opportunity to participate in Elias's care. Patient Instructions - I will update you on the EEG results when they become available. No other neurological testing isrecommended at this time. - Keep track of and monitor your symptoms moving forwards. - Follow-up with your PCP regarding sleep apnea and fatigue -- these are most likely contributing to your symptoms at this time. - Follow-up with eye care provider as instructed by your PCP. - OK for planned urology procedure from a neurology standpoint. I will sent a copy of today's visitto the urologist once you given me their name/contact info. - Return to clinic for follow-up in [...] word substitutions. I spent a total of 30 minutes on this mawe-yg-xwaw encounter on the date of service. This included: [x] Preparing to see the patient, review of laboratory test results and medical record [x] Independently interpreting neuroimaging or neurophysiological results [] Obtaining and/or reviewing separately obtained history (eg, outside records, caregiver) [x] Counseling and educating the patient/family/caregiver [] Referring and communicating with other health team primary care physician [x] Documenting clinical information in the electronic or other health record [] Care coordination Ronnie Jamil MD Retail Property Manager Department of Neurology [facility] [address] P F documented in this encounter Plan of Treatment Upcoming Encounters Date Type Department Care Team (Late st Contact Info) Description 04/15/2024 8:00 AM EDT Office [place] [address] Ananya Torres, DOWN FILLER documented as of this encounter Visit Diagnoses Diagnosis Aphasia Transient neurological symptoms documented in this encounter Care Teams Hat Maker Relationship Specialty Start Date End Date Dandy Hodges PA [facility] [place] [place] [address] PCP - General Internal Medicine 03/11/24 documented as of this encounter
--- OUTSIDE RECORDS SUMMARY | 2024-04-04 16:46 | XMS_ITS | Encounter Summary ---
[place] [address] Care Team Providers Care Surgical Nurse Name Role Phone Dandy Hodges Primary Care Provider + Reason for Visit * Reason Onset Date Comments Appointment 03/27/2024 Encounter Details Date Type Department Care Team ([facility] Contact Info) Description 03/27/2024 Telephone [place] [phone] Ronnie Jamil MD [address] [place] [address] [place] [address] Appointment Social History Tobacco Use Types Packs/Day Years Used Date Smoking Tobacco: Former Cigarettes Q uit: 10/09/2010 Smokeless Tobacco: Never Sex and Gender Information Value Date Recorded Sex Assigned at Not on file Gender Identity Not on file Sexual Orientation Not on file documented as of this encounter Miscellaneous Notes * Telephone Encounter - Jolanta Logan - 03/27/2024 8:44 AM EDT Please follow scheduling instructions below Schedule in person visit Return in about 3 months (around 06/25/2024) for In Person . Appt Notes: TIA Visit Type: FUV Provider: Dr Jamil Additional Info Needed: documented in this encounter Plan of Treatment Upcoming Encounters Date Type Department Care Team ([facility] Contact Info) Description 04/15/2024 8:00 AM EDT Office Visit [place] [address] Ananya Torres, COMMISSARY WORKER documented as of this encounter Visit Diagnoses Not on filedocumented in this encounter Care Teams Surgical Nurse Relationship Specialty Start Date End Date Dandy Hodges PA [address] [place] [address] PCP - General Internal Medicine 03/11/24 documented as of this encounter
--- OUTSIDE RECORDS SUMMARY | 2024-04-04 16:47 | XMS_ITS | Encounter Summary ---
Author Organization [facility] Address [facility] [place] [address] Care Team Providers Care Entrepreneurship Program Director Name Role Phone Андрей Coello MD Primary Care Provider [phone] Encounter Details Date Type Department Care Team (Late st Contact Info) Description 01/26/2017 11:30 AM EDT - 01/26/2017 12:30 PM EDT Surgery Ice Cream Server [facility] [place] [phone] Nataly Mcginnis MD [facility] [place] [address] CARDIAC CATHETERIZATION Social History Tobacco Use Types [...] by your doctor, do not take any jlfu-jrl-hrmyian medicinesor herbal preparations without first discussing this with your doctor or pharmacist. There is the possibility of side effects and interactions when these are combined. Follow Up Care Who to call with questions or problems If there are any questions or problems that you think might be related to your cardiac cath or angioplasty, contact the gas flow regulator concession manager by calling [facility] at . * Patient Instructions* Mirian Moctezuma MD - 01/26/2017 2:13 PM EDT Cardiology Instructions Call your doctor if: Chest pain, dyspnea, pain or swelling in legs occurs. If you have non-emergent questions between now and the time of your follow up appointments: -During 8am-5pm Sunday through Sunday call [phone] to speak with a nurse in the cardiology clinic -All other times call [phone] and ask to speak to the steel manager concession manager. MEDICATIONS - you can restart your metformin on 01/28/17 - keep nitroglycerin with you at all times, if you have chest pain, can take 1 tablet under your tongue every 5 minutes up to 3 tablets. If your pain does not resolve you need to call [phone]. Return to usual actvities: 1 week, as tolerated. Do not lift anything greater than 1 gallon for milk for 1 week You can shower the day after your procedure, but don't take any tub baths or soak in pools for 1 week after your procedure. Driving: No driving for 48 hours after catheterization. Follow up Appointments: Primary care provider: Cardiology: Андрей Coello MD [phone] Follow up as planned or as needed. Dr. Toby Song Call to confirm follow-up documented in this encounter Medications at Time of Discharge Medication Sig Dispensed Refills Start Date End Date gabapentin (NEURONTIN) 300 mg Capsule Take 300 [...] mouth daily. metoprolol tartrate (LOPRESSOR) 25 mg tabletIndications:hype rtension Take 50 mg by mouth 2 times daily. Indications: hypertension nitroGLYcerin (NITROSTAT) 0.4 mg SL tablet 0.4mg, Sublingual, PRN 05/15/2005 documented as of this encounter Progress Notes [...] Moctezuma MD - 01/26/2017 12:40 PM EDT Elisa Pennington is a 56 y.o. male referred [...] AM EDT Office [place] [address] Ananya Torres, BOILER ERECTOR documented as of this encounter Procedures Procedure Name Priority Date/Time Associated Diagnosis Comments POCT GLUCOSE Routine 01/26/2017 3:38 PM EDT EKG 12-LEAD Routine 01/26/2017 11:58 AM EDT ASCVD (arteriosclerotic cardiovascular disease) POCT GLUCOSE Routine 01/26/2017 11:28 AM EDT documented in this encounter Results * POCT Glucose (01/26/2017 3:38 PM EDT) Glucose, POC 145 65 - 199 mg/dL [facility] Comment: Supplemental ranges: <140 mg/dL before meals <180 mg/dL all other times of the day Blood specimen (specimen) 01/26/2017 3:38 PM EDT 01/26/2017 3:38 PM EDT Nataly Mcginnis MD POINT OF CARE TEST O RDERABLES [facility] [place] [address] * EKG 12 Lead (01/26/2017 11:58 AM EDT) Ventricular rate 52 BPM MUSE SYSTEM Atrial Rate 52 BPM MUSE SYSTEM P-R Interval 184 ms MUSE SYSTEM QRS Duration 98 ms MUSE SYSTEM Q-T Interval 436 ms MUSE SYSTEM QTC Calculated (Bezet) 405 ms MUSE SYSTEM Calculated P Stratton 45 degrees MUSE SYSTEM Calculated R Stratton 6 degrees MUSE SYSTEM Calculated T Stratton 23 degrees MUSE SYSTEM INTERPRETATION Sinus bradycardia Otherwise normal ECG When compared with ECG of 10-JUN-2013 10:41, Vent. rate has decreased BY ??27 BPM Confirmed by MD ANDER, JOHNNY ([id number]) on 01/26/2017 4:07:53 PM MUSE SYSTEM 01/26/2017 11:5 8 AM EDT 01/26/2017 4:07 PM EDT Nataly Mcginnis MD ECG ORDERABLES Performing Organization Address City/[facility]/ZIP Co de Phone Number MUSE SYSTEM * POCT Glucose (01/26/2017 11:28 AM EDT) Glucose, POC 122 65 - 199 mg/dL [facility] Comment: Supplemental ranges: <140 mg/dL before meals <180 mg/dL all other times of the day Blood specimen (specimen) 01/26/2017 11:28 AM EDT 01/26/2017 11:28 AM EDT Nataly Mcginnis MD POINT OF CARE TEST O RDERABLES Performing Organization Address City/[facility] Co de Phone Number [facility] [place] [address] documented in this encounter Visit Diagnoses Diagnosis [...] MD) documented in this encounter Care Teams Entrepreneurship Program Director Relationship Specialty Start Date End Date Андрей Coello MD PCP - General 12/05/16 03/10/24 documented as of this encounter
--- OUTSIDE RECORDS SUMMARY | 2024-04-04 16:47 | XMS_ITS | Encounter Summary ---
Author Organization [facility] Address [facility] [place] [address] Care Team Providers Care Molder Fitting Name Role Phone Adam Grey MD Primary Care Provider [phone] Reason for Referral * Physical Therapy (Routine) - Specialty Diagnoses / Procedures Referred By Contac t Referred To Contact Physical Therapy Diagnoses Epidural lipomatosis Larry Anderson MD [facility] [place] [address] Referral ID Status Reason Start Date Expiration Date V isits Requested Visits Authorized [id number] Evaluate and Treat 10/20/2014 04/18/2015 12 12 Reason for Visit * Reason Comments Low Back Pain Bilateral Leg Pain Encounter Details Date Type Department Care Team (Late st Contact Info) Description 10/20/2014 9:15 AM EDT Office Visit [facility] at [place] [phone] Larry Anderson MD [facility] [place] [address] Epidural lipomatosis Discharge Disposition: Home Social History [...] in this encounter Progress Notes * Larry Andreson MD - 10/20/2014 11:34 AM EDT Patient [...] core muscle strengthening. I discussed the functional islam program with him, but he lives too far away and does not think that this would be feasible. He is, however, interested in physical therapy and I gave him a prescription for this. Twenty-five minutes of this 45-minute visit were spent in direct bvyy-ap-odmb counseling. documented in this encounter Plan of Treatment Upcoming Encounters Date Type Department Care Team (Late st Contact Info) Description 04/15/2024 8:00 AM EDT Office [place] [address] Ananya Torres, POWDER EXPERT Scheduled Referrals Name Type Priority Associated Diagnoses [...] sites documented in this encounter Care Teams Molder Fitting Relationship Specialty Start Date End Date Adam Grey MD [facility] [address] [place] [address] PCP - General 10/20/14 12/04/16 documented as of this encounter
--- OUTSIDE RECORDS SUMMARY | 2024-04-04 16:47 | XMS_ITS | Encounter Summary ---
Author Organization [facility] Address [facility] [place] [address] Care Team Providers Care Embroidery Designer Name Role Phone Adam Grey MD Primary Care Provider [phone] Encounter Details Date Type Department Care Team (Latest Contact Info) Description 10/20/2014 10:38 AM EDT - 10/20/2014 11:59 PM EDT Hospital Encounter XRay at [address] [place] [address] Epidural lipomatosis Social History Tobacco Use Types [...] mouth daily. metoprolol tartrate (LOPRESSOR) 25 mg tabletIndications :hypertension Take 50 mg by mouth 2 times daily. Indications: hypertension nitroGLYcerin (NITROSTAT) 0.4 mg SL tablet 0.4mg, Sublingual, PRN 05/15/2005 nabumetone (RELAFEN) 500 mg Tablet Take 500 [...] AM EDT Office [place] [address] Ananya Torres, BILLET EXAMINER documented as of this encounter Procedures Procedure [...] sites documented in this encounter Care Teams Embroidery Designer Relationship Specialty Start Date End Date Adam Grey MD [facility] [address] [place] [address] PCP - General 10/20/14 12/04/16 documented as of this encounter
--- OUTSIDE RECORDS SUMMARY | 2024-04-04 16:47 | XMS_ITS | Encounter Summary ---
Author Organization [facility] [place] [address] Care Team Providers Care Quarter Supervisor Name Role Phone Dandy Hodges Primary Care Provider + Encounter Details Date Type Department Care Team (Latest Contact Info) Description 03/11/2024 Travel Social History Tobacco Use Types Packs/Day [...] AM EDT Office [place] [address] Ananya Torres, BAGGING SALVAGER documented as of this encounter Visit Diagnoses Not on filedocumented in this encounter Care Teams Quarter Supervisor Relationship Specialty Start Date End Date Dandy Hodges [place] [place] [address] PCP - General Internal Medicine 03/11/24 documented as of this encounter
--- OUTSIDE RECORDS SUMMARY | 2024-04-04 16:47 | XMS_ITS | Encounter Summary ---
Author Organization [facility] Address [facility] [place] [address] Care Team Providers Care Cnc Set Up Operator Name Role Phone Андрей Coello MD Primary Care Provider [phone] Encounter Details Date Type Department Care Team (Late Contact Info) Description 10/03/2023 12:10 AM EDT Ancillary Procedure Radiology Library at [facility] [place] [address] Андрей Coello MD [address] [place] [address] Social History Tobacco Use Types Packs/Day Years Used Date Smoking Tobacco: Former Cigarettes Q uit: 10/09/2010 Smokeless Tobacco: Never Sex and Gender Information Value Date Recorded Sex Assigned at Not on file Gender Identity Not on file Sexual Orientation Not on file documented as of this encounter Plan of Treatment Upcoming Encounters Date Type Department Care Team (Late Contact Info) Description 04/15/2024 8:00 AM EDT Office Visit Speech Therapy at [facility] [place] [address] Ananya Torres, PYROMETER OPERATOR documented as of this encounter Procedures Procedure Name Priority Date/Time Associated Diagnosis Comments FILM LIBRARY STORAGE ONLY CT CHEST Routine 10/03/2023 12:10 AM EDT documented in this encounter Results * Film Library- Storage Only CT Chest (10/03/2023 12:10 AM EDT) Narrative [facility] - 12/03/2023 4:32 PM EDT This exam is auto-finalizing. It's purpose is for storage only. Андрей Coello MD [facility] FILM LIBRARY ORD ERABLES [place], [place] documented in this encounter Visit Diagnoses Not on filedocumented in this encounter Care Teams Cnc Set Up Operator Relationship Specialty Start Date End Date Андрей Coello MD PCP - General 12/05/16 03/10/24 documented as of this encounter
--- OUTSIDE RECORDS SUMMARY | 2024-04-04 16:47 | XMS_ITS | Encounter Summary ---
Author Organization [facility] Address [facility] [place] [address] Care Team Providers Care Customer Response Representative Name Role Phone Андрей Espinoza MD Primary Care Provider [phone] Encounter Details Date Type Department Care Team (Late st Contact Info) Description 06/11/2013 Notes Only Cardiology at [address] [phone] Leander Pulido MD [facility] [place] [address] Social History Tobacco Use Types Packs/Day Years [...] discomfort in his wrist. Leander Pulido MD Breakfast Hostess Pager# [phone] 06/11/2013 documented in this encounter Plan of Treatment Upcoming Encounters Date Type Department Care Team (Late st Contact Info) Description 04/15/2024 8:00 AM EDT Office [place] [address] Ananya Torres, HUMAN ANATOMY TEACHER documented as of this encounter Visit Diagnoses Not on filedocumented in this encounter Care Teams Customer Response Representative Relationship Specialty Start Date End Date Андрей Espinoza MD PCP - General 06/14/10 10/19/14 documented as of this encounter
--- OUTSIDE RECORDS SUMMARY | 2024-04-04 16:47 | XMS_ITS | Encounter Summary ---
Author Organization [facility]ly [facility], Later [facility] Address [facility] [place] [address] Care Team Providers Care District Attorney Name Role Phone Андрей Coello MD Primary Care Provider [phone] Encounter Details Date Type Department Care Team (Latest Contact Info) Description 01/26/2017 10:28 AM EDT - 01/26/2017 4:32 PM EDT Hospital En[facility] [place] [address] Nataly Mcginnis MD [facility] [place] [address] ASCVD (arteriosclerotic cardiovascular disease) Discharge Disposition: Home [...] by your doctor, do not take any winr-kqr-znkeniq medicinesor herbal preparations without first discussing this with your doctor or pharmacist. There is the possibility of side effects and interactions when these are combined. Follow Up Care Who to call with questions or problems If there are any questions or problems that you think might be related to your cardiac cath or angioplasty, contact the voice over artist convertible sofa bedspring tester by calling [facility] at . * Patient Instructions* Mirian Moctezuma MD - 01/26/2017 2:13 PM EDT Cardiology Instructions Call your doctor if: Chest pain, dyspnea, pain or swelling in legs occurs. If you have non-emergent questions between now and the time of your follow up appointments: -During 8am-5pm Sunday through Sunday call [phone] to speak with a nurse in the cardiology clinic -All other times call [phone] and ask to speak to the industrial relations counselor convertible sofa bedspring tester. MEDICATIONS - you can restart your metformin on 01/28/17 - keep nitroglycerin with you at all times, if you have chest pain, can take 1 tablet under your tongue every 5 minutes up to 3 tablets. If your pain does not resolve you need to call 911. Return to usual actvities: 1 week, as tolerated. Do not lift anything greater than 1 gallon for milk for 1 week You can shower the day after your procedure, but don't take any tub baths or soak in pools for 1 week after your procedure. Driving: No driving for 48 hours after catheterization. Follow up Appointments: Primary care provider: Cardiology: Андрей Coello MD [phone] Follow up as planned or as needed. [...] AM EDT Office [place] [phone] Ananya Torres, ORAL COMMUNICATION INSTRUCTOR documented as of this encounter Procedures Procedure Name Priority Date/Time Associated Diagnosis Comments POCT GLUCOSE Routine 01/26/2017 3:38 PM EDT EKG 12-LEAD Routine 01/26/2017 11:58 AM EDT ASCVD (arteriosclerotic cardiovascular disease) POCT GLUCOSE Routine 01/26/2017 11:28 AM EDT documented in this encounter Results * POCT Glucose (01/26/2017 3:38 PM EDT) [facility] Signature Glucose, POC 145 65 - 199 mg/dL [facility] Comment: Supplemental ranges: <140 mg/dL before meals <180 mg/dL all other times of the day Blood specimen (specimen) 01/26/2017 3:38 PM EDT 01/26/2017 3:38 PM EDT Nataly Mcginnis MD POINT OF CARE TEST O RDERABLES [facility] [place] [address] * EKG 12 Lead (01/26/2017 11:58 AM EDT) Ventricular rate 52 BPM MUSE SYSTEM Atrial Rate 52 BPM MUSE SYSTEM P-R Interval 184 ms MUSE SYSTEM QRS Duration 98 ms MUSE SYSTEM Q-T Interval 436 ms MUSE SYSTEM QTC Calculated (Bezet) 405 ms MUSE SYSTEM Calculated P [place] 45 degrees MUSE SYSTEM Calculated R [place] 6 degrees MUSE SYSTEM Calculated T [place] 23 degrees MUSE SYSTEM INTERPRETATION Sinus bradycardia Otherwise normal ECG When compared with ECG of 10-JUN-2013 10:41, Vent. rate has decreased BY ??27 BPM Confirmed by MD ANDER, EDWARD ([id number]) on 01/26/2017 4:07:53 PM MUSE SYSTEM 01/26/2017 11:5 8 AM EDT 01/26/2017 4:07 PM EDT Nataly Mcginnis MD ECG ORDERABLES MUSE SYSTEM * POCT Glucose (01/26/2017 11:28 AM EDT) Glucose, POC 122 65 - 199 mg/dL [facility] Comment: Supplemental ranges: <140 mg/dL before meals <180 mg/dL all other times of the day Blood specimen (specimen) 01/26/2017 11:28 AM EDT 01/26/2017 11:28 AM EDT Nataly Mcginnis MD POINT OF CARE TEST O RDERABLES Performing Organization Address City/[facility]/ZIP Co de Phone Number [facility] [place] [place] [address] documented in this encounter Visit Diagnoses Diagnosis [...] MD) documented in this encounter Care Teams District Attorney Relationship Specialty Start Date End Date Андрей Coello MD PCP - General 12/05/16 03/10/24 documented as of this encounter
--- OUTSIDE RECORDS SUMMARY | 2024-04-04 16:47 | XMS_ITS | Encounter Summary ---
Author Organization [facility] [place] [address] Care Team Providers Care Gi Asst Name Role Phone Андрей Coello MD Primary Care Provider [phone] Encounter Details Date Type Department Care Team [...] AM EDT Office Visit [place] [address] Ananya Torres, MIXER WET POUR documented as of this encounter Visit Diagnoses Not on filedocumented in this encounter Care Teams Gi Asst Relationship Specialty Start Date End Date Андрей Coello MD PCP - General 12/05/16 03/10/24 documented as of this encounter
--- OUTSIDE RECORDS SUMMARY | 2024-04-04 16:47 | XMS_ITS | Encounter Summary ---
Author Organization [facility] Address [facility] [place] [address] Care Team Providers Care Market Analysis Director Name Role Phone Андрей Coello MD Primary Care Provider [phone] Encounter Details Date Type Department Care Team (Late st Contact Info) Description 10/19/2020 10:30 AM EDT - 10/19/2020 11:30 AM EDT Surgery Rn Utilization [place] [address] Earnest Aguilera MD [facility] [place] [address] CARDIAC CATHETERIZATION Social History Tobacco Use Types [...] by your doctor, do not take any rfwl-jku-acwpzbu medicines or herbal preparations without first discussing this with your doctor or pharmacist. There is the possibility of side effect and interactions when these are combined. Follow up Care Who to Call with Questions or Problems If there are any questions or problems that you think might be related to your cardiac cath or angioplasty, contact the concrete curer contract modeler by calling [facility] at . documented in this encounter Medications at Time of Discharge Medication Sig Dispensed Refills Start Date End Date isosorbide dinitrate (ISORDIL) 30 mg Tablet Take [...] Capsule Take 300 mg by mouth daily. omeprazole 20 mg Tablet, Delayed Release (E.C.) Take 20 mg by mouth. documented as of this encounter H&P Notes [...] AM EDT Office [place] [address] Ananya Torres, ENVIRONMENTAL HEALTH AND SAFETY LEADER documented as of this encounter Procedures Procedure [...] Glucose, POC 98 65 - 199 mg/dL [facility] Comment: Supplemental ranges: <140 mg/dL before meals <180 mg/dL all other times of the day Blood specimen (specimen) 10/19/2020 4:40 PM EDT 10/19/2020 4:40 PM EDT Earnest Aguilera MD POINT OF CARE TEST O DIONI Performing Organization Address City/[facility]/ZIP Co de Phone Number [facility] [place] [address] * POCT Glucose (10/19/2020 2:38 PM EDT) Glucose, POC 110 65 - 199 mg/dL [facility] Comment: Supplemental ranges: <140 mg/dL before meals <180 mg/dL all other times of the day Blood specimen (specimen) 10/19/2020 2:38 PM EDT 10/19/2020 2:38 PM EDT Earnest Aguilera MD POINT OF CARE TEST O DIONI [facility] [place] [address] * CARDIAC CATHETERIZATION (10/19/2020 2:14 PM EDT) Anatomical Region Laterality Modality Other Narrative 10/20/2020 2:29 AM EDT ?[facility] ? Cardiac Catheterization/Intervention Report ? Patient Name: Elias Pennington. ? Procedure Date: 10/19/2020 ? A #: [id number] ? Primary Physician: Earnest Aguilera ? Case #: [id number] ? File Name: [id number] ? Catheterization Order Number: [id number] ? [facility] ?[facility]n [facility] ? Final Report [place], [place] ? Patient Name: ? Elias Pennington ?ID#: ?[id number] ? : ?1960 ? Procedure Date: ? [...] procedure was Elective. The indication for ?the laborer cheesemaking visit is worsening angina. Chest pain symptom [...] angiography and left ?heart catheterization. ? Earnest Aguilera M.D. ? Electronically Signed by: Earnest S Ale, M.D. ? Report Finalized: 10/19/2020 ??14:29 ? Procedure Note Earnest Aguilera MD - 10/20/2020 [facility] Cardiac Catheterization/Intervention Report Patient Name: Elias Pennington Procedure Date: 10/19/2020 A #: [id number] Primary Physician: Earnest Aguilera Case #: [id number] File Name: [id number] Catheterization Order Number: [id number] [facility] FinalReport [place], [place] Patient Name: Elias Pennington ID#:[id number] :1960 Procedure Date: October 19, 2020 Case [...] was designated as ASA Class III. The [facility] clinical frailtyscale is 3: Managing Well. [...] diagnostic procedure was Elective. Theindication for the laborer cheesemaking visit is worsening angina. Chest pain symptomassessment [...] units of heparin were administered. A total [id number] of Omnipaque were opened, 55cc of Omnipaque were administered nco04jh of Omnipaque were wasted. Radiation: Fluoro time [...] (Bezet) 425 ms MUSE SYSTEM Calculated P [place] 54 degrees MUSE SYSTEM Calculated R [place] 7 degrees MUSE SYSTEM Calculated T [place] 21 degrees MUSE SYSTEM INTERPRETATION Normal sinus rhythm Normal ECG When compared with ECG of 26-JAN-2017 11:58, No significant change was found Confirmed by MD Tejas, Dandy Hidalgo ([id number]) on 10/19/2020 1:38:12 PM MUSE SYSTEM 10/19/2020 12:3 9 PM EDT 10/19/2020 1:38 PM EDT Earnest Aguilear MD ECG ORDERABLES MUSE SYSTEM * POCT Glucose (10/19/2020 12:25 PM EDT) Pathologist [facility] Glucose, POC 114 65 - 199 mg/dL [facility] Comment: Supplemental ranges: <140 mg/dL before meals <180 mg/dL all other times of the day Blood specimen (specimen) 10/19/2020 12:25 PM EDT 10/19/2020 12:25 PM EDT Earnest Aguilera MD POINT OF CARE TEST O RDERABLES [facility] [place] [address] * Differential, Automated (10/19/2020 8:18 AM EDT) [facility] Neutrophil % 70.1 % [facility] Neutrophil Absolute 4.98 1.70 - 6.10 x10(3)/[facility] Lymph % 21.5 % [facility] Lymphocytes Abs 1.5 0.9 - 3.2 x10(3)/[facility] Monocyte % 6.0 % [facility] Monocyte Abs 0.4 0.3 - 0.9 x10(3)/[facility] Eos % 1.3 % [facility] Eosinophils Abs 0.1 0.0 - 0.4 x10(3)/[facility] Basophil % 0.7 % [facility] Baso Absolute 0.0 0.0 - 0.1 x10(3)/[facility] Immature Gran % 0.40 % [facility] Comment: Immature granulocytes(IG's)percentage and absolute count will include metamyelocytes, myelocytes, and promyelocytes. Blood smears from CBCs yielding IG's will be scanned manually for concordance. If this scan disagrees with the automated IG or if promyelocytes are noted, a manual differential will be performed. Immature Gran Absolute 0.03 0.00 - 0.04 x10(3)/[facility] Blood specimen (specimen) 10/19/2020 8:18 AM EDT 10/19/2020 8:26 AM EDT Narrative Resulting Agency Comment Spec In Lab Ramakrishna MODI HEMATOLOGY ORDERABLE S [facility] [place] [address] * Hemogram (10/19/2020 8:18 AM EDT) White Blood Cell 7.1 4.0 - 9.5 x10(3)/[facility] Red Blood Cell 5.11 4.58 - 5.54 x10(6)/[facility] Hemoglobin 14.4 13.7 - 16.5 gm/dL [facility] Hematocrit 43.9 40.5 - 48.5 % [facility] Mean Cell Volume 85.9 82.9 - 93.1 [facility] Mean Cell Hemoglobin 28.2 27.5 - 32.1 pg [facility] Mean Cell Hemoglobin Concentration 32.8 32.0 - 35.7 gm/dL [facility] Platelet 167 145 - 357 x10(3)/[facility] RDW Standard Deviation 41.8 36.0 - 45.0 [facility] RDW coefficient of variation 13.3 11.4 - 13.8 % [facility] Mean Platelet Volume 10.6 7.6 - 12.9 [facility] NRBC% auto 0.0 % [facility] NRBC Absolute 0.000 0.000 - 0.000 x10(3)/[facility] Blood specimen (specimen) 10/19/2020 8:18 AM EDT 10/19/2020 8:26 AM EDT Narrative Resulting Agency Comment Spec In Lab Ramakrishna MODI HEMATOLOGY ORDERABLE S [facility] [place] [address] * (ABNORMAL) BMP w/fasting Glucose (10/19/2020 8:18 AM EDT) [facility] Signature Glucose Fasting 164(H) 65 - 99 mg/dL [facility] Comment: ?Fasting* Glucose Interpretive [...] of Diabetes Mellitus, Position Statement from the [place] [employer]. ??Diabetes Care, Volume 33, Supplement 1, Jul 2009 Blood Urea Nitrogen 14 10 - 20 mg/dL [facility] Creatinine 0.73(L) 0.80 - 1.50 mg/dL [facility] Sodium 136 135 - 145 mmol/L [facility] Potassium 4.3 3.5 - 5.0 mmol/L [facility] Comment: Please note: ??Patients with WBC >100,000 may have falsely elevated Potassium levels. ??For accurate Potassium quantification in these patients send serum separator tube (gold top) for subsequent determinations. ??Contact the Clinical Chemistry Laboratory if there are any questions. Chloride 101 98 - 107 mmol/L [facility] Carbon Dioxide 23 22 - 31 mmol/L [facility] Anion Gap 12 5 - 15 mmol/L [facility] Calcium 9.6 8.5 - 10.5 mg/dL [facility] Est Glomerular Filtration Rate 102 >=60 mL/min/1. 73 m?? [facility] Comment: This patient? s [...] In Lab Earnest Aguilera MD CHEMISTRY ORDERABLES [facility] [place] [address] documented in this encounter Visit Diagnoses Diagnosis Abnormal stress test- Primary Other nonspecific abnormal cardiovascular system function study Abnormal stress test Other nonspecific abnormal cardiovascular system function study Coronary artery disease Coronary atherosclerosis of unspecified type of vessel, [place] or graft Abnormal stress test Other nonspecific abnormal cardiovascular system function study Coronary artery disease, angina presence unspecified, unspecified vessel or lesion type, unspecified whether [place] or transplanted heart documented in this encounter [...] Intravenous, EVERY 12 HOURS, First dose on e 10/19/20 at 1245, Until Discontinued, Cath (Day [...] 5 MIN PRN, 2 doses, Starting on e 10/19/20 at 1421, Until [...] mcg/mL) multi-dose injection ONCE PRN, Starting on e 10/19/20 at 1354, Until 10/19/20 at 2242, Intra-Operative (Intra-Procedure), Routine 1354 (Given - Provid er: Matilde John RN) heparin (porcine) (1,000 units/mL) injection ONCE PRN, Starting on e 10/19/20 at 1356, Until 10/19/20 at 2242, [...] 1 HOUR PRN, 2 doses, Starting on e 10/19/20 at 1421, Until 10/19/20 at 2242, For sheath removal, May repeat once while in Cath Recovery Unit. , Cath (Recovery-Hospital Unit), Routine midazolam (pf) (Versed) (1 mg/mL) multi-dose injection ONCE PRN, Starting on e 10/19/20 at 1354, Until 10/19/20 at 2242, Cath (Intra-Procedure), Routine 1354 (Given - Provid er: Matilde John RN) nitroGLYcerin (Nitrostat) disintegrating tablet 0.4 mg 0.4 mg, Sublingual, EVERY 5 MIN PRN, Starting on e 10/19/20 at 1421, Until Sun10/19/20 at 2242, Chest [...] Zaragoza) documented in this encounter Care Teams Market Analysis Director Relationship Specialty Start Date End Date Андрей Coello MD PCP - General 12/05/16 03/10/24 documented as of this encounter
--- OUTSIDE RECORDS SUMMARY | 2024-04-04 16:47 | XMS_ITS | Encounter Summary ---
Author Organization [facility] Address [facility] [place] [address] Care Team Providers Care Assembly Leader Name Role Phone Андрей Espinoza MD Primary Care Provider [phone] Encounter Details Date Type Department Care Team (Late st Contact Info) Description 06/03/2014 Orders [place] [address] Jay Valadez MD [facility] [place] [address] Social History Tobacco Use Types Packs/Day Years [...] AM EDT Office [place] [address] Ananya Torres, DIGITAL COMPOSER documented as of this encounter Procedures Procedure [...] is a Non-reportable exam Jay Valadez MD [facility] [place]RARY ORD ERABLES documented in this encounter Visit Diagnoses Not on filedocumented in this encounter Care Teams Assembly Leader Relationship Specialty Start Date End Date Андрей Espinoza MD PCP - General 06/14/10 10/19/14 documented as of this encounter
--- OUTSIDE RECORDS SUMMARY | 2024-04-04 16:47 | XMS_ITS | Encounter Summary ---
Author Organization [facility] [place] [address] Care Team Providers Care Drywaller Name Role Phone Андрей Coello MD Primary Care Provider [phone] Encounter Details Date Type Department Care Team (Late Contact Info) Description 03/13/2023 Ancillary Procedure Radiology Library at [facility] [place] [address] Андрей Coello MD [address] [place] [id number] Social History Tobacco Use Types Packs/Day Years [...] AM EDT Office Visit Speech Therapy at [facility] [place] [address] Ananya Torres, SNOW PLOW TRACTOR OPERATOR documented as of this encounter Procedures Procedure Name Priority Date/Time Associated Diagnosis Comments FILM LIBRARY STORAGE ONLY NUCLEAR MEDICINE Routine 03/13/2023 12:00 AM EDT documented in this encounter Results * Film Library- Storage Only nuclear medicine (03/13/2023 12:00 AM EDT) Narrative [facility] - 12/03/2023 4:32 PM EDT This exam is auto-finalizing. It's purpose is for storage only. Андрей Coello MD [facility] FILM LIBRARY ORD ERABLES [place], [place] documented in this encounter Visit Diagnoses Not on filedocumented in this encounter Care Teams Drywaller Relationship Specialty Start Date End Date Андрей Coello MD PCP - General 12/05/16 03/10/24 documented as of this encounter
--- OUTSIDE RECORDS SUMMARY | 2024-04-04 16:47 | XMS_ITS | Encounter Summary ---
Author Organization [facility] Address [facility] [place] [address] Care Team Providers Care Java User Interface Developer Name Role Phone Андрей Espinoza MD Primary Care Provider [phone] Encounter Details Date Type Department Care Team (Late st Contact Info) Description 06/10/2013 9:35 AM EST - 06/10/2013 10:35 AM EST [place] [phone] Андрей Somers MD [facility] [place] [address] CARDIAC CATHETERIZATION Social History Tobacco Use Types [...] by your doctor, do not take any nkzz-kca-lybkfcm medicines or herbal preparations without first discussing this with your doctor or pharmacist. There is the possibility of side effect and interactions when these are combined. Follow up Care Who to Call with Questions or Problems If there are any questions or problems that you think might be related to your cardiac cath or angioplasty, contact the pulp roller environmental services manager by calling [facility] at . Reviewed Discharge instructions with Patient. [...] Sublingual, PRN 05/15/2005 gabapentin (NEURONTIN) 300 mg capsule Take 300 [...] with his right hand. Leander Pulido MD Marine Farmer Pager# [phone] * Maritza Andre RN - 06/10/2013 4:[address] Ron in to see pt and he is holding pressure on radial artery. MM * Rocío Purdy RN - 06/10/2013 3:[address] Sullivan to bedside to assess. Pulse present- wrist achey- Dr Desouza aware also 15:45 Dr Somers in bed laborer- made aware update given to Maritza HIGGINS - * Jim Mcrbide - 06/10/2013 12:18 PM EST ABSORB III SCREEN FAILURE NOTE ABSORB III RANDOMIZED CONTROLLED TRIAL A Clinical Evaluation of Absorb??? BVS, the Everolimus Eluting Bioresorbable Vascular Scaffold in the Treatment of Subjects with de erica [place] Coronary Artery Lesions PI: Paul Gsos MD Pager #:[phone] Research Coordinators: Jim Mcbride, BS, BA, MAINTENANCE SERVICE SUPERVISOR Pager #:[phone] Gonzales Rhodes RN Pager #: [phone] Purpose: The pivotal trial to support the [place] pre-market approval (PMA) of Absorb BVS. ABSORB III will evaluate the safety and effectiveness of the Absorb BVS System compared to the XIENCE in the treatment of subjects, including those with diabetes mellitus, with ischemic heart disease caused by up to two denovo kaw coronary artery lesions in separate epicardial vessels. [...] Target lesion(s) must be located in a kaw coronary artery with a visually estimated or quantitatively assessed %DS of >= 50% and < 100% with a RENAY flow of >= 1 and one of the following: stenosis >= 70%, an abnormal functional test (e.g., fractional flow reserve, stress test), unstable angina or post-infarct angina. a. Lesion(s) must be located in a kaw coronary artery with RVD by visual estimation of >= 2.50 mm and <= 3.75 mm. b. Lesion(s) must be located in a kaw coronary artery with length by visual estimation of <= 24 mm. Angiographic Exclusion Criteria: 1. Lesion which prevents successful balloon pre-dilatation, defined as full balloon expansion with the following outcomes: - Residual %DS is a maximum < 40% (per visual estimation), <= 20% is strongly recommended. -RENAY Grade-3 flow [...] a bifurcation with a: a. side branch >= 2 mm in diameter, or b. side branch with either an ostial or non-ostial lesion with diameter stenosis > 50%, or c. side branch requiring pre-dilatation or protection guide wire 6. Anatomy proximal to or within the lesion that may impair delivery of the Absorb BVS or XIENCE stent: b. Extreme angulation (>= 90??) proximal to or within the target lesion. c. Excessive tortuosity (>= two 45?? angles) proximal to or within the target lesion. d. Moderate or heavy calcification proximal to or within the target lesion. If IVUS used, subject must be excluded if calcium ARC in the vessel prior to the lesion or within the lesion is >= 180??. 7. Vessel contains thrombus as indicated [...] the Treatment of Subjects with de erica [place] Coronary Artery Lesions PI: Paul Goss MD Pager #:[phone] Research Coordinators: Jim Mcbride, BS, BA, MAINTENANCE SERVICE SUPERVISOR Pager #:[phone] Gonzales Rhodes RN Pager #: [phone] Purpose: The pivotal trial to support the [place] pre-market approval (PMA) of Absorb BVS. ABSORB III will evaluate the safety and effectiveness of the Absorb BVS System compared to the XIENCE in the treatment of subjects, including those with diabetes mellitus, with ischemic heart disease caused by up to two denovo kaw coronary artery lesions in separate epicardial vessels. [...] Pre-Procedural H&P Patient Name: Elias Pennington : [id number] y.o. MR#: [id number] Chief Complaint: chest pain Planned Procedure: Coronary [...] AM EDT Office [place] [address] Ananya Torres, CALL CENTER COORDINATOR documented as of this encounter Procedures [...] (Bezet) 435 ms MUSE SYSTEM Calculated P [place] 56 degrees MUSE SYSTEM Calculated R [place] 5 degrees MUSE SYSTEM Calculated T [place] 20 degrees MUSE SYSTEM INTERPRETATION Normal sinus rhythm with sinus arrhythmia Normal ECG When compared with ECG of 07-APR-2011 19:09, No significant change was found Confirmed by MD Gume, Kevin ([id number]) on 06/12/2013 7:58:32 AM MUSE SYSTEM 06/10/2013 10:4 1 AM EST 06/12/2013 7:58 AM EST Андрей Somers MD ECG ORDERABLES [place] [facility] documented in this encounter Visit Diagnoses Diagnosis CAD (coronary artery disease) Coronary atherosclerosis of unspecified type of vessel, kaw or graft ASCVD (arteriosclerotic cardiovascular disease) Unspecified [...] Routine 1104 (Given - Provid er: Brianne Rivera, RONALDO) diphenhydrAMINE (BENADRYL) capsule 25 mg (COMPLETED) 25 mg, Oral, ONCE, 1 dose, On Sun06/10/13 at 1045, Cath (Day of Procedure), Routine 1105 (Given - Provid er: Brianne Rivera, RONALDO) Continuous Medication Order 06/08/2013 06/09/2013 06/10/2013 sodium [...] MD) documented in this encounter Care Teams Java User Interface Developer Relationship Specialty Start Date End Date Андрей Espinoza MD PCP - General 06/14/10 10/19/14 documented as of this encounter
--- OUTSIDE RECORDS SUMMARY | 2024-04-04 16:47 | XMS_ITS | Encounter Summary ---
Author Organization [facility] Address [facility] [place] [address] Care Team Providers Care Furnace Erector Name Role Phone Adam Grey MD Primary Care Provider [phone] Encounter Details Date Type Department Care Team (Late st Contact Info) Description 12/13/2015 9:45 AM EDT Office Visit Dermatology at [address] [place] [address] Deepak Olson MD [address], [place] [address] Lichen simplex chronicus Social History Tobacco Use [...] AM EDT Office [place] [address] Ananya Torres, PIPE INSULATOR HELPER documented as of this encounter Visit Diagnoses Diagnosis Lichen simplex chronicus Lichenification and lichen simplex chronicus documented in this encounter Care Teams Furnace Erector Relationship Specialty Start Date End Date Adam Grey MD [facility] [address] [place] [address] PCP - General 10/20/14 12/04/16 documented as of this encounter
--- OUTSIDE RECORDS SUMMARY | 2024-04-04 16:47 | XMS_ITS | Encounter Summary ---
Author Organization [facility] Address [facility] [place] [address] Care Team Providers Care Research Electrician Name Role Phone Андрей Espinoza MD Primary Care Provider [phone] Encounter Details Date Type Department Care Team (Late st Contact Info) Description 06/05/2013 Orders Only Cardiology at [address] [phone] Emily Mi PA [facility] [place] [address] ASCVD (arteriosclerotic cardiovascular disease) (Primary Dx) Social [...] AM EDT Office [place] [phone] Ananya Torres, TABLET TECHNICIAN documented as of this encounter Procedures [...] disease documented in this encounter Care Teams Research Electrician Relationship Specialty Start Date End Date Андрей Espinoza MD PCP - General 06/14/10 10/19/14 documented as of this encounter
--- OUTSIDE RECORDS SUMMARY | 2024-04-04 16:47 | XMS_ITS | Encounter Summary ---
Author Organization [facility] [place] [address] Care Team Providers Care Wrapping Machine Tender Name Role Phone Adam Grey MD Primary Care Provider [phone] Reason for Visit * Consultation (Routine) - Closed Specialty Diagnoses / Procedures Referred By Contashley t Referred To Contact Dermatology Diagnoses persistent rash right hand Adam Grey MD [facility] [address] [place] [address] Deepak Olson MD [address] [place] [address], [place] [address] Referral ID Status Reason Start Date Expiration Date V isits Requested Visits Authorized [id number] Closed Connection Center 06/23/2015 06/22/2016 1 1 Encounter Details Date Type Department Care Team (Late st Contact Info) Description 09/02/2015 8:15 AM EST Office Visit Dermatology at [place] [address] [facility] [place] [address] Deepak Olson MD [address] [facility], [place] [address] Lichen simplex chronicus Social History Tobacco Use [...] We discussed the need to stop the qehf-zjylxwt-cskc cycle. We will advance from creams to [...] AM EDT Office [place] [address] Ananya Torres, GALLERY DIRECTOR documented as of this encounter Visit Diagnoses Diagnosis Lichen simplex chronicus Lichenification and lichen simplex chronicus documented in this encounter Care Teams Wrapping Machine Tender Relationship Specialty Start Date End Date Adam Grey MD [facility] [address] [facility] [place] [address] PCP - General 10/20/14 12/04/16 documented as of this encounter
--- OUTSIDE RECORDS SUMMARY | 2024-04-04 16:47 | XMS_ITS | Encounter Summary ---
Author Organization [facility] [place] [address] Care Team Providers Care Hollock Maker Name Role Phone Андрей Coello MD Primary Care Provider [phone] Encounter Details Date Type Department Care Team (Late Contact Info) Description 06/18/2023 Ancillary Procedure Radiology Library [place] [address] Андрей Coello MD [address] [place] [phone] Social History Tobacco Use Types Packs/Day Years [...] EDT Office Visit [facility] [place] [address] Ananya Torres, NEON SIGN MECHANIC documented as of this encounter Procedures Procedure Name Priority Date/Time Associated Diagnosis Comments FILM LIBRARY STORAGE ONLY MR HEAD Routine 06/18/2023 12:00 AM EST documented in this encounter Results * Film Library- Storage Only MR Head (06/18/2023 12:00 AM EST) Narrative [facility] - 12/03/2023 4:32 PM EDT This exam is auto-finalizing. It's purpose is for storage only. Андрей Coello MD [facility] FILM LIBRARY ORD ERABLES [place], [place] documented in this encounter Visit Diagnoses Not on filedocumented in this encounter Care Teams Hollock Maker Relationship Specialty Start Date End Date Андрей Coello MD PCP - General 12/05/16 03/10/24 documented as of this encounter
--- OUTSIDE RECORDS SUMMARY | 2024-04-04 16:47 | XMS_ITS | Encounter Summary ---
Author Organization [facility] [place] [address] Care Team Providers Care Junior Accounting Clerk Name Role Phone Андрей Coello MD Primary Care Provider [phone] Reason for Visit * Speech Therapy (Routine) - Pending Review Specialty Diagnoses / Procedures Referred By Chin helm Referred To Contact Speech Pathology / Speech Therapy Diagnoses Aphasia RFV aphasia Ronnie Jamil MD [address] [place] [address] [place] [address] [facility] [place] [address] Referral ID Status Reason Start Date Expiration Date Visits Requested Visits Authorized [id number] Pending Review Evaluate and Treat 11/22/2023 11/21/2024 100 100 Encounter Details Date Type Department Care Team (Latest Contact Info) Description 01/31/2024 9:00 AM EDT Office [place] [phone] Ananya Torres, HOME ADMINISTRATOR Cognitive communication deficit Social History Tobacco Use Types Packs/Day Years Used Date Smoking Tobacco: Former Cigarettes Q uit: 10/09/2010 Smokeless Tobacco: Never Sex and Gender Information Value Date Recorded Sex Assigned at Not on file Gender Identity Not on file Sexual Orientation Not on file documented as of this encounter Miscellaneous Notes * Initial Evaluation - Ananya Torres, HOME ADMINISTRATOR - 01/31/2024 9:00 AM EDT Jkrhiq-Pjbkijlp-Hufkvfchf Evaluation Patient Name: Elias Pennington Date of : [...] was seen on 01/31/2024 for an Outpatient Qabfjo-Jitshiur-Yzklruzwv Evaluation. PMHx is significant for CAD (3 stents here at [facility]), HLD, HTN, DMII (HbA1c [...] tolerance. He has no documented history of HOME ADMINISTRATOR intervention. Relevant Imaging: MRI Brain wo (completed [...] WAB-R Aphasia Classification. Spontaneous Speech: Information Content: 05/01 Fluency, Grammatical Competence, and Paraphasias: 05/01 Spontaneous Speech Total: Spontaneous Speech Score: 20/ (Use to calculate AQ) Auditory Verbal Comprehension: Yes/No Questions: 60/60 Auditory Word Comprehension: 59/60 Sequential Commands: 80/80 Auditory Verbal Comprehension Total: 199/200 Auditory Verbal Comprehension Score: 9.95/10 (Use to calculate AQ) Repetition: Repetition Total: 96/100 Repetition Score: 9.6/10 (Use to calculate AQ) Naming and Word Finding: Object Namin/60 Word Fluency: Sentence Completion: 05/01 Responsive Speech: [...] or less than once a day) = 513 # of items rated as E (Once or more in a day)= 413 Prompt Response Comments Having to check whether [...] has been educated on role of the HOME ADMINISTRATOR, overview of the rehab program, and general [...] amnesia was documented as far back as 2017. Per chart review, Dr. Jamil has ordered [...] may be indicated. Recommend participation in skilled HOME ADMINISTRATOR services to further train compensatory strategies to bypass current cognitive-linguistic dysfunctions, target the religion of prior level of functioning, andaid in [...] you put somethingdown Association: linking old information (termite renewal inspector memory) with new information such as taking medicine with breakfast External memory strategies: Write things down in a shoe planner or on a calendar Set timers [...] the word, like playing a game of charFashiontrot. Even gesturing with your hands in a [...] mind??? I'll ask you later.?? Adapted from: [email or web address]/ Patient would benefit from continued HOME ADMINISTRATOR services. Short Term Goals: - Patient will teach back compensatory language strategies with 100% accuracy given minimal cueing. - Patient will teach back compensatory cognitive-linguistic strategies with 100% accuracy given minimal cueing. - Patient will use trained vzgbwn-ujoludsk-fedfihffd strategies to complete a functional task with [...] of Semantic Feature Analysis given minimal cueing. Chcf Goal(s): - Patient will independently demonstrate compensatory and support strategies to improve cognitive-communicative effectiveness in the current living, community, and work environments. Plan: - Recommend skilled HOME ADMINISTRATOR services for 1x per week, every other [...] any questions or concerns. Ananya Torres, MS, [facility]-HOME ADMINISTRATOR Speech-Language Pathologist Pager # [phone] documented in this encounter Plan of Treatment Upcoming Encounters Date Type Department Care Team (Iesha Contact Info) Description 04/15/2024 8:00 AM EDT Office [place] [phone] Ananya Torres, HOME ADMINISTRATOR documented as of this encounter Procedures Procedure Name Priority Date/Time Associated Diagnosis Comments HOME ADMINISTRATOR PLAN OF CARE CERT/RE-CERT Routine 01/31/2024 4:22 PM EDT Cognitive communication deficit documented in this encounter Visit Diagnoses Diagnosis Cognitive communication deficit documented in this encounter Care Teams Junior Accounting Clerk Relationship Specialty Start Date End Date Андрей Coello MD PCP - General 12/05/16 03/10/24 documented as of this encounter
--- OUTSIDE RECORDS SUMMARY | 2024-04-04 16:47 | XMS_ITS | Encounter Summary ---
Author Organization [facility] Address [facility] [place] [address] Care Team Providers Care Senior Management Consultant Name Role Phone Андрей Coello MD Primary Care Provider [phone] Encounter Details Date Type Department Care Team (Late st Contact Info) Description 10/15/2020 Orders [place] [phone] Ramakrishna Mera PA [facility] [place] [address] Screening for cardiovascular condition; Abnormal stress test; Coronary artery disease, angina presence unspecified, unspecified vessel or lesion type, unspecified whether [place] or transplanted heart Social History Tobacco Use [...] AM EDT Office [place] [address] Ananya Torres, ACADEMIC SPECIALIST documented as of this encounter Visit Diagnoses Diagnosis Screening for cardiovascular condition Screening for other and unspecified cardiovascular conditions Abnormal stress test Other nonspecific abnormal cardiovascular system function study Coronary artery disease, angina presence unspecified, unspecified vessel or lesion type, unspecified whether [place] or transplanted heart documented in this encounter Care Teams Senior Management Consultant Relationship Specialty Start Date End Date Андрей Coello MD PCP - General 12/05/16 03/10/24 documented as of this encounter
--- OUTSIDE RECORDS SUMMARY | 2024-04-04 16:47 | XMS_ITS | Encounter Summary ---
Author Organization [facility] Address [facility] [place] [address] Care Team Providers Care Obiee Architect Name Role Phone Андрей Espinoza MD Primary Care Provider [phone] Encounter Details Date Type Department Care Team (Latest Contact Info) Description 06/10/2013 9:43 AM EST - 06/10/2013 5:25 PM EST Hospital En[place] [phone] Андрей Somers MD [facility] [place] [address] CAD (coronary artery disease); ASCVD (arteriosclerotic cardiovascular [...] by your doctor, do not take any sguc-pyh-xummmug medicines or herbal preparations without first discussing this with your doctor or pharmacist. There is the possibility of side effect and interactions when these are combined. Follow up Care Who to Call with Questions or Problems If there are any questions or problems that you think might be related to your cardiac cath or angioplasty, contact the radio mechanic helper customer acquisition specialist by calling [facility] at . Reviewed Discharge instructions with Patient. [...] with his right hand. Leander Pulido MD Electroless Plater Pager# [phone] * Maritza Andre RN - 06/10/2013 4:[address] Ron in to see pt and he is holding pressure on radial artery. MM * Rocío Purdy RN - 06/10/2013 3:[address] Sullivan to bedside to assess. Pulse present- wrist achey- Dr Desouza aware also 15:45 Dr Somers in mini lab operator- made aware update given to Maritza HIGGINS - * Rae Jim Diane - 06/10/2013 12:18 PM EST ABSORB III SCREEN FAILURE NOTE ABSORB III RANDOMIZED CONTROLLED TRIAL A Clinical Evaluation of Absorb??? BVS, the Everolimus Eluting Bioresorbable Vascular Scaffold in the Treatment of Subjects with de erica [place] Coronary Artery Lesions PI: Paul Goss MD Pager #:[phone] Research Coordinators: MICHELLE Poole, BA, TRANSFORMATION LEAD Pager #:[phone] Gonzales Rhodes RN Pager #: [phone] Purpose: The pivotal trial to support the [place] pre-market approval (PMA) of Absorb BVS. ABSORB III will evaluate the safety and effectiveness of the Absorb BVS System compared to the XIENCE in the treatment of subjects, including those with diabetes mellitus, with ischemic heart disease caused by up to two denovo [place]apache coronary artery lesions in separate epicardial vessels. [...] Target lesion(s) must be located in a [place] coronary artery with a visually estimated or quantitatively assessed %DS of >= 50% and < 100% with a RENAY flow of >= 1 and one of the following: stenosis >= 70%, an abnormal functional test (e.g., fractional flow reserve, stress test), unstable angina or post-infarct angina. a. Lesion(s) must be located in a [place]-apache coronary artery with RVD by visual estimation of >= 2.50 mm and <= 3.75 mm. b. Lesion(s) must be located in a [place]-apache coronary artery with length by visual estimation [...] the Treatment of Subjects with de erica [place] Coronary Artery Lesions PI: Paul Goss MD Pager #:[phone] Research Coordinators: Jim Mcbride, MICHELLE, BA, TRANSFORMATION LEAD Pager #:[phone] Gonzales Rhodes RN Pager #: [phone] Purpose: The pivotal trial to support the [place] pre-market approval (PMA) of Absorb BVS. ABSORB III will evaluate the safety and effectiveness of the Absorb BVS System compared to the XIENCE in the treatment of subjects, including those with diabetes mellitus, with ischemic heart disease caused by up to two denovo [place] coronary artery lesions in separate epicardial vessels. [...] Pre-Procedural H&P Patient Name: Elias Pennington : [id number] y.o. MR#: [id number] Chief Complaint: chest pain Planned Procedure: Coronary [...] AM EDT Office [place] [address] Ananya Torres, DYNO TECHNICIAN documented as of this encounter Procedures [...] (Bezet) 435 ms MUSE SYSTEM Calculated P [place] 56 degrees MUSE SYSTEM Calculated R [place] 5 degrees MUSE SYSTEM Calculated T [place] 20 degrees MUSE SYSTEM INTERPRETATION Normal sinus [...] Coronary atherosclerosis of unspecified type of vessel, [place] or graft ASCVD (arteriosclerotic cardiovascular disease) Unspecified [...] MD) documented in this encounter Care Teams Obiee Architect Relationship Specialty Start Date End Date Андрей Espinoza MD PCP - General 06/14/10 10/19/14 documented as of this encounter
--- OUTSIDE RECORDS SUMMARY | 2024-04-04 16:47 | XMS_ITS | Encounter Summary ---
Author Organization [facility] Address [facility] [place] [address] Care Team Providers Care Vehicle Controls Engineer Name Role Phone Андрей Coello MD Primary Care Provider [phone] Encounter Details Date Type Department Care Team (Late st Contact Info) Description 01/24/2017 Orders Only Cardiology at [address] [phone] Emily Mi PA [facility] [place] [address] ASCVD (arteriosclerotic cardiovascular disease) Social History Tobacco [...] AM EDT Office Visit [place] [phone] Ananya Torres, GOVERNMENT RELATIONS ANALYST documented as of this encounter Procedures Procedure Name Priority Date/Time Associated Diagnosis Comments CARDIAC CATHETERIZATION Routine 01/26/2017 2:08 PM EDT ASCVD (arteriosclerotic cardiovascular disease) documented in this encounter Results * CARDIAC CATHETERIZATION (01/26/2017 2:08 PM EDT) Anatomical Region Laterality Modality Other Narrative 01/27/2017 2:43 AM EDT ?[facility] ? Cardiac Catheterization/Intervention Report ? Patient Name: Elias Pennington. ? Procedure Date: 01/26/2017 ? A #: [id number] ? Primary Physician: Ahmed, Nataly ? Case #: [id number] ? File Name: [id number] ? Catheterization Order Number: [id number] ? [facility] ? Final Report [place], [place] ? Patient Name: ? Elias Pennington ?ID#: ?[id number] ? : ?1960 ? Procedure Date: ? January 26, 2017 ? Case #: ? [id number] ? Room: ? 6 ? Case Physician: [...] presented with: stable angina (w/i 42 days). [place] ?Cardiovascular Society angina class was III. This [...] Procedure Note Nataly Mcginnis MD - 01/27/2017 [facility] Cardiac Catheterization/Intervention Report Patient Name: PenningtonElias Procedure Date: 01/26/2017 A #: [id number] Primary Physician: Nataly Mcginnis Case #: [id number] File Name: [id number] Catheterization Order Number: [id number] [facility] FinalReport [place], [place] Patient Name: Elias Pennington ID#:[id number] :1960 Procedure Date: January 26, 2017 Case #: [id number] Room: 6 Case Physician: Nataly Mcginnis M.D. Start: 13:47 Fellow: Mirian Moctezuma M.D. [...] presented with: stable angina (w/i 42 days). [place] Cardiovascular Society angina class was III. This [...] disease documented in this encounter Care Teams Vehicle Controls Engineer Relationship Specialty Start Date End Date Андрей Coello MD PCP - General 12/05/16 03/10/24 documented as of this encounter
--- OUTSIDE RECORDS SUMMARY | 2024-04-04 16:47 | XMS_ITS | Encounter Summary ---
Author Organization [facility]ly [facility] [place] [address] Care Team Providers Care Tire And Lube Technician Name Role Phone Андрей Coello MD Primary Care Provider [phone] Reason for Visit * Reason Onset Date Comments Other 10/20/2020 cardiac cath que stion Encounter Details Date Type Department Care Team (Late st Contact Info) Description 10/20/2020 Telephone Cardiology at [address] [phone] Betzaida Velasco RN Other (cardiac cath question) [...] they would have treated this. Betzaida Velasco RONALDO 4A Cardiology documented in this encounter Plan of Treatment Upcoming Encounters Date Type Department Care Team (Late st Contact Info) Description 04/15/2024 8:00 AM EDT Office [place] [address] Ananya Torres, VP HUMAN RESOURCES documented as of this encounter Visit Diagnoses Not on filedocumented in this encounter Care Teams Tire And Lube Technician Relationship Specialty Start Date End Date Андрей Coello MD PCP - General 12/05/16 03/10/24 documented as of this encounter
--- OUTSIDE RECORDS SUMMARY | 2024-04-04 16:47 | XMS_ITS | Encounter Summary ---
Author Organization [facility] [place] [address] Care Team Providers Care Automotive Hardware Engineer Name Role Phone Андрей Coello MD Primary Care Provider [phone] Reason for Referral * Consultation (Routine) - Closed Specialty Diagnoses / Procedures Referred By Contashley t Referred To Contact Neurology Diagnoses Expressive language disorder ? TIAАндрей Guerra MD [address] [place] [address] [place] [address] [facility] [address] [place] [id number] Referral ID Status Reason Start Date Expiration Date V isits Requested Visits Authorized [id number] Closed Consult, Test & Treat 07/05/2023 07/04/2024 1 1 Encounter Details Date Type Department Care Team (Late Contact Info) Description 07/05/2023 Transcribe Orders eD Incoming Referrals [phone] Андрей Coello MD [address] [place] [address] [address] [place], [place] [id number] Expressive language disorder Social History Tobacco Use [...] EDT Office Visit [place] [phone] Ananya Torres, PRODUCTION MACHINE COMPUTER OPERATOR Scheduled Referrals Name Type Priority Associated Diagnoses Orde r Schedule Referral to Neurology Outpatient Referral Routine Expressive language disorder Ordered: 07/05/2023 documented as of this encounter Visit Diagnoses Diagnosis Expressive language disorder documented in this encounter Care Teams Automotive Hardware Engineer Relationship Specialty Start Date End Date Андрей Coello MD PCP - General 12/05/16 03/10/24 documented as of this encounter
--- OUTSIDE RECORDS SUMMARY | 2024-04-04 16:47 | XMS_ITS | Encounter Summary ---
Author Organization [facility] [place] [address] Care Team Providers Care Record Systems Analyst Name Role Phone Андрей Espinoza MD Primary Care Provider [phone] Reason for Referral * Surgical (Routine) - Closed Specialty Diagnoses / Procedures Referred By Contac t Referred To Contact Orthopaedic Surgery / Orthopaedics Diagnoses Spinal stenosis of lumbar region Jay Valadez MD [facility] [place] [address] [facility] [place] [address] Referral ID Status Reason Start Date Expiration Date V isits Requested Visits Authorized [id number] Closed Consult, Test & Treat 06/24/2014 06/24/2015 1 1 Reason for Visit * Reason Onset Date Comments Medication Refill 06/24/2014 Encounter Details Date Type Department Care Team (Late st Contact Info) Description 06/24/2014 Refill [place] [phone] Jay Valadez MD [facility] [place] [address] Spinal stenosis of lumbar region Social History [...] AM EDT Office [place] [address] Ananya Torres, BUNDLE SHAKER Scheduled Referrals Name Type Priority Associated Diagnoses Orde r Schedule Referral to Spine Center Outpatient Referral Routine Spinal stenosis of lumbar region Ordered: 06/24/2014 documented as of this encounter Visit Diagnoses Diagnosis Spinal stenosis of lumbar region Spinal stenosis, lumbar region, without neurogenic claudication documented in this encounter Care Teams Record Systems Analyst Relationship Specialty Start Date End Date Андрей Espinoza MD PCP - General 06/14/10 10/19/14 documented as of this encounter
--- OUTSIDE RECORDS SUMMARY | 2024-04-04 16:47 | XMS_ITS | Encounter Summary ---
Author Organization [facility] Address [facility] [place] [address] Care Team Providers Care Barn Boss Name Role Phone Андрей Coello MD Primary Care Provider [phone] Encounter Details Date Type Department Care Team (Latest Contact Info) Description 10/19/2020 7:47 AM EDT - 10/19/2020 5:25 PM EDT Hospital Encounter [place] [phone] Earnest Aguilera MD [facility] [place] [address] Abnormal stress test; Abnormal stress test Discharge [...] by your doctor, do not take any [id number] medicines or herbal preparations without first discussing this with your doctor or pharmacist. There is the possibility of side effect and interactions when these are combined. Follow up Care Who to Call with Questions or Problems If there are any questions or problems that you think might be related to your cardiac cath or angioplasty, contact the blocking machine operator second transverse abdominal muscle surgeon by calling [facility] at . documented in this encounter [...] AM EDT Office [place] [address] Ananya Torres, PRODUCTION COUNTER documented as of this encounter Procedures Procedure [...] Glucose, POC 98 65 - 199 mg/dL [facility] Comment: Supplemental ranges: <140 mg/dL before meals <180 mg/dL all other times of the day Blood specimen (specimen) 10/19/2020 4:40 PM EDT 10/19/2020 4:40 PM EDT Earnest Aguilera MD POINT OF CARE TEST O RDERABLES [facility] [place] [address] * POCT Glucose (10/19/2020 2:38 PM EDT) Glucose, POC 110 65 - 199 mg/dL [facility] Comment: Supplemental ranges: <140 mg/dL before meals <180 mg/dL all other times of the day Blood specimen (specimen) 10/19/2020 2:38 PM EDT 10/19/2020 2:38 PM EDT Earnest Aguilera MD POINT OF CARE TEST O RDERABLES [facility] [place] [id number] * CARDIAC CATHETERIZATION (10/19/2020 2:14 PM EDT) Anatomical Region Laterality Modality Other Narrative 10/20/2020 2:29 AM EDT ?[facility] ? Cardiac Catheterization/Intervention Report ? Patient Name: Elias Pennington. ? Procedure Date: 10/19/2020 ? A #: [id number] ? Primary Physician: Earnest Aguilera ? Case #: [id number] ? File Name: [id number] ? Catheterization Order Number: [id number] ? [facility] ? Final Report [place], [place] ? Patient Name: ? Elias Isaacs. G[place] ?ID#: ?[id number] ? : ?1960 ? Procedure Date: ? October 19, 2020 ? Case #: ? [id number] ? Room: ? 2 ? Case Physician: ? Earnest Aguilera M.D. ? Start: ?13:54 ?Fellow: ? Rusty Zaragoza M.D. ?Admission: ??10/19/2020 ? Referring ? Venancio Silvestre M.D. ? Physicians: ?Аднрей Coello M.D. ? Procedures: ?* Coronary Angiography [...] procedure was Elective. The indication for ?the receiver/laborer visit is worsening angina. Chest pain symptom [...] Aguilera M.D. ? Electronically Signed by: Earnest Aguilera M.D. ? Report Finalized: 10/19/2020 ??14:29 ? Procedure Note Earnest Aguilera MD - 10/20/2020 [facility] Cardiac Catheterization/Intervention Report Patient Name: Elias Pennington Procedure Date: 10/19/2020 A #: [id number] Primary Physician: Earnest Aguilera Case #: [id number] File Name: [id number] Catheterization Order Number: [id number] [facility] FinalReport [place], [place] Patient Name: Elias Pennington ID#:[id number] :1960 Procedure Date: October 19, 2020 Case [...] was designated as ASA Class III. The [facility] clinical frailtyscale is 3: Managing Well. Diagnostic [...] diagnostic procedure was Elective. Theindication for the receiver/laborer visit is worsening angina. Chest pain symptomassessment [...] units of heparin were administered. A total [id number] of Omnipaque were opened, 55cc of Omnipaque were administered [id number] of Omnipaque were wasted. Radiation: Fluoro time [...] (Bezet) 425 ms MUSE SYSTEM Calculated P [place] 54 degrees MUSE SYSTEM Calculated R [place] 7 degrees MUSE SYSTEM Calculated T [place] 21 degrees MUSE SYSTEM INTERPRETATION Normal sinus rhythm Normal ECG When compared with ECG of 26-JAN-2017 11:58, No significant change was found Confirmed by MD Tejas, Dandy Hidalgo ([id number]) on 10/19/2020 1:38:12 PM MUSE SYSTEM 10/19/2020 12:3 9 PM EDT 10/19/2020 1:38 PM EDT Earnest Aguilera MD ECG ORDERABLES Performing Organization Address City/[facility]/ZIP Co de Phone Number MUSE SYSTEM * POCT Glucose (10/19/2020 12:25 PM EDT) [facility] Glucose, POC 114 65 - 199 mg/dL [facility] Comment: Supplemental ranges: <140 mg/dL before meals <180 mg/dL all other times of the day Blood specimen (specimen) 10/19/2020 12:25 PM EDT 10/19/2020 12:25 PM EDT Earnest Aguilera MD POINT OF CARE TEST O RDERABLES [facility] [place] [id number] * Differential, Automated (10/19/2020 8:18 AM EDT) [facility] Neutrophil % 70.1 % [facility] Neutrophil Absolute 4.98 1.70 - 6.10 x10(3)/[facility]ORAT[facility] Lymph % 21.5 % [facility] Lymphocytes Abs 1.5 0.9 - 3.2 x10(3)/[facility] LABORATORY Monocyte % 6.0 % [facility] Monocyte Abs 0.4 0.3 - 0.9 x10(3)/[facility] LABORATORY Eos % 1.3 % [facility] Eosinophils Abs 0.1 0.0 - 0.4 x10(3)/[facility] LABORATORY Basophil % 0.7 % [facility] Baso Absolute 0.0 0.0 - 0.1 x10(3)/[facility] LABORATORY Immature Gran % 0.40 % [facility] Comment: Immature granulocytes(IG's)percentage and absolute count will include metamyelocytes, myelocytes, and promyelocytes. Blood smears from CBCs yielding IG's will be scanned manually for concordance. If this scan disagrees with the automated IG or if promyelocytes are noted, a manual differential will be performed. Immature Gran Absolute 0.03 0.00 - 0.04 x10(3)/[facility] LABORATORY Blood specimen (specimen) 10/19/2020 8:18 AM EDT 10/19/2020 8:26 AM EDT Narrative Resulting Agency Comment Spec In Lab Ramakrishna MODI HEMATOLOGY ORDERABLE S [facility] [place] [address] * Hemogram (10/19/2020 8:18 AM EDT) White Blood Cell 7.1 4.0 - 9.5 x10(3)/[facility] LABORATORY Red Blood Cell 5.11 4.58 - 5.54 x10(6)/[facility] LABORATORY Hemoglobin 14.4 13.7 - 16.5 gm/dL [facility] Hematocrit 43.9 40.5 - 48.5 % [facility] Mean Cell Volume 85.9 82.9 - 93.1 fL [facility] Mean Cell Hemoglobin 28.2 27.5 - 32.1 pg [facility] Mean Cell Hemoglobin Concentration 32.8 32.0 - 35.7 gm/dL [facility] Platelet 167 145 - 357 x10(3)/[facility] LABORATORY RDW Standard Deviation 41.8 36.0 - 45.0 fL [facility] RDW coefficient of variation 13.3 11.4 - 13.8 % [facility] Mean Platelet Volume 10.6 7.6 - 12.9 fL [facility] NRBC% auto 0.0 % [facility] NRBC Absolute 0.000 0.000 - 0.000 x10(3)/mcL [facility] Blood specimen (specimen) 10/19/2020 8:18 AM EDT 10/19/2020 8:26 AM EDT Narrative Resulting Agency Comment Spec In Lab Ramakrishna MODI HEMATOLOGY ORDERABLE S [facility] [place] [address] * (ABNORMAL) BMP w/fasting Glucose (10/19/2020 8:18 AM EDT) Glucose Fasting 164(H) 65 - 99 mg/dL [facility] Comment: ?Fasting* Glucose Interpretive Criteria [...] of Diabetes Mellitus, Position Statement from the [place] Diabetes Association. ??Diabetes Care, Volume 33, Supplement 1, Jul 2009 Blood Urea Nitrogen 14 10 - 20 mg/dL [facility] Creatinine 0.73(L) 0.80 - 1.50 mg/dL [facility] Sodium 136 135 - 145 mmol/L [facility] Potassium 4.3 3.5 - 5.0 mmol/L [facility] Comment: Please note: ??Patients with WBC >100,000 may have falsely elevated Potassium levels. ??For accurate Potassium quantification in these patients send serum separator tube (gold top) for subsequent determinations. ??Contact the Clinical Chemistry Laboratory if there are any questions. Chloride 101 98 - 107 mmol/L [facility] Carbon Dioxide 23 22 - 31 mmol/L [facility] Anion Gap 12 5 - 15 mmol/L [facility] Calcium 9.6 8.5 - 10.5 mg/dL [facility] Est Glomerular Filtration Rate 102 >=60 mL/min/1. 73 m?? [facility] Comment: This patient? s estimated [...] In Lab Earnest Aguilera MD CHEMISTRY ORDERABLES [facility] [place] [address] documented in this encounter Visit Diagnoses Diagnosis Abnormal stress test- Primary Other nonspecific abnormal cardiovascular system function study Abnormal stress test Other nonspecific abnormal cardiovascular system function study Coronary artery disease Coronary atherosclerosis of unspecified type of vessel, [place] or graft Abnormal stress test Other nonspecific abnormal cardiovascular system function study Coronary artery disease, angina presence unspecified, unspecified vessel or lesion type, unspecified whether [place] or transplanted heart documented in this encounter [...] Intravenous, EVERY 1 MIN PRN, Starting on 10/19/20 at 1227, Until 10/19/20 at 2242, flush, Flush pertains to all indwelling lines. Flush per protocol found in the job aid using the link provided on this medication record., Cath (Day of Procedure), Routine sodium chloride 0.9% infusion 200 mL/hr, Intravenous, CONTINUOUS, Starting on e 10/19/20 at 1245, Until Tu10/19/20 at 2242, Cath (Day of Procedure) New [...] Starting on e 10/19/20 at 1245, Until Tu10/19/20 at 2242, Cath (Day of Procedure) 1247 [...] Starting on e 10/19/20 at 1421, Until e 10/19/20 at 2242, Other, vasovagal episode, Call interventional MD. , Cath (Recovery-Hospital Unit), Routine fentaNYL (PF) (50 mcg/mL) injection 25 mcg 25 mcg, Intravenous, Administer over 4 Hours, EVERY 30 MIN PRN, 4 doses, Starting on e 10/19/20 at 1421, Until Sun10/19/20 at 2242, Pain, sheath removal, May repeat once while in Cath Recovery Unit , Cath (Recovery-Hospital Unit), Routine fentaNYL (pf) (50 mcg/mL) multi-dose injection ONCE PRN, Starting on e 10/19/20 at 1354, Until Sun10/19/20 at 2242, Intra-Operative [...] Subcutaneous, ONCE PRN, 1 dose, Starting on 10/19/20 at 1227, Until 10/19/20 at 2242, [...] Zaragoza) documented in this encounter Care Teams Barn Boss Relationship Specialty Start Date End Date Андрей Coello MD PCP - General 12/05/16 03/10/24 documented as of this encounter
--- OUTSIDE RECORDS SUMMARY | 2024-04-04 16:47 | XMS_ITS | Encounter Summary ---
Author Organization [facility] [place] [address] Care Team Providers Care Centrifugal Chiller Technician Name Role Phone Андрей Coello MD Primary Care Provider [phone] Encounter Details Date Type Department Care Team (Late st Contact Info) Description 10/03/2023 Ancillary Procedure Radiology Library at [facility] [place] [address] Андрей Coello MD [address] [place] [phone] Social History Tobacco Use Types Packs/Day Years [...] AM EDT Office Visit Speech Therapy at [facility] [place] [place] [address] Ananya Torres, SUPERVISOR [employer]AR documented as of this encounter Procedures Procedure Name Priority Date/Time Associated Diagnosis Comments FILM LIBRARY STORAGE ONLY ULTRASOUND STUDY Routine 10/03/2023 12:00 AM EDT documented in this encounter Results * Film Library- Storage Only Ultrasound Study (10/03/2023 12:00 AM EDT) Narrative [facility] - 12/03/2023 4:32 PM EDT This exam is auto-finalizing. It's purpose is for storage only. Андрей Coello MD [facility] FILM LIBRARY ORD ERABLES [place], [place] documented in this encounter Visit Diagnoses Not on filedocumented in this encounter Care Teams Centrifugal Chiller Technician Relationship Specialty Start Date End Date Андрей Coello MD PCP - General 12/05/16 03/10/24 documented as of this encounter
--- OUTSIDE RECORDS SUMMARY | 2024-04-04 16:47 | XMS_ITS | Encounter Summary ---
Author Organization [facility] [place] [address] Care Team Providers Care Market Development Manager Name Role Phone Андрей Coello MD Primary Care Provider [phone] Encounter Details Date Type Department Care Team [...] AM EDT Office [place] [address] Ananya Torres, AUTO DESIGN DETAILER documented as of this encounter Visit Diagnoses Not on filedocumented in this encounter Care Teams Market Development Manager Relationship Specialty Start Date End Date Андрей Coello MD PCP - General 12/05/16 03/10/24 documented as of this encounter
--- OUTSIDE RECORDS SUMMARY | 2024-04-04 16:47 | XMS_ITS | Encounter Summary ---
Author Organization [facility] Address [facility] [place] [address] Care Team Providers Care Automatic Toe Laster Name Role Phone Андрей Coello MD Primary Care Provider [phone] Encounter Details Date Type Department Care Team (Late st Contact Info) Description 10/15/2020 [place] [address] Jeannette Vang PA [facility] [place] [address] Abnormal stress test Social History Tobacco Use [...] AM EDT Office [place] [address] Ananya Torres, HISTOLOGY MANAGER documented as of this encounter Visit Diagnoses Diagnosis Abnormal stress test Other nonspecific abnormal cardiovascular system function study documented in this encounter Care Teams Automatic Toe Laster Relationship Specialty Start Date End Date Андрей Coello MD PCP - General 12/05/16 03/10/24 documented as of this encounter
--- OUTSIDE RECORDS SUMMARY | 2024-04-04 16:47 | XMS_ITS | Encounter Summary ---
Author Organization [facility] Address [facility] [place] [address] Care Team Providers Care Home Economics Extension Worker Name Role Phone Андрей Coello MD Primary Care Provider [phone] Encounter Details Date Type Department Care Team (Late Contact Info) Description 10/03/2023 12:05 AM EDT Ancillary Procedure Radiology Library at [facility] [place] [address] Андрей Coello MD [address] [place] [address] Social History Tobacco Use Types Packs/Day Years Used Date Smoking Tobacco: Former Cigarettes Q uit: 10/09/2010 Smokeless Tobacco: Never Sex and Gender Information Value Date Recorded Sex Assigned at Not on file Gender Identity Not on file Sexual Orientation Not on file documented as of this encounter Plan of Treatment Upcoming Encounters Date Type Department Care Team ([facility] Contact Info) Description 04/15/2024 8:00 AM EDT Office Visit Speech Therapy at [facility] [place] [address] Ananya Torres, HIGH SCHOOL MUSIC DIRECTOR documented as of this encounter Procedures Procedure Name Priority Date/Time Associated Diagnosis Comments FILM LIBRARY STORAGE ONLY CT CHEST Routine 10/03/2023 12:05 AM EDT documented in this encounter Results * Film Library- Storage Only CT Chest (10/03/2023 12:05 AM EDT) Narrative [facility] - 12/03/2023 4:32 PM EDT This exam is auto-finalizing. It's purpose is for storage only. Андрей Coello MD [facility] FILM LIBRARY ORD ERABLES [place], [place] documented in this encounter Visit Diagnoses Not on filedocumented in this encounter Care Teams Home Economics Extension Worker Relationship Specialty Start Date End Date Андрей Coello MD PCP - General 12/05/16 03/10/24 documented as of this encounter
--- OUTSIDE RECORDS SUMMARY | 2024-04-04 16:47 | XMS_ITS | Encounter Summary ---
Author Organization [facility] [place] [address] Care Team Providers Care Comb Tender Name Role Phone Dandy Hodges Primary Care Provider + Reason for Visit * Speech Therapy (Routine) - Pending Review Specialty Diagnoses / Procedures Referred By Chin helm Referred To Contact Speech Pathology / Speech Therapy Diagnoses Aphasia RFV aphasia Ronnie Jamil MD [address] [place] [address] [place] [address] [facility] [place] [address] Referral ID Status Reason Start Date Expiration Date Visits Requested Visits Authorized [id number] Pending Review Evaluate and Treat 11/22/2023 11/21/2024 100 100 Encounter Details Date Type Department Care Team (Latest Contact Info) Description 03/11/2024 8:00 AM EDT Office [place] [phone] Ananya Torres, CAUL FAT PULLER Cognitive communication deficit Social History Tobacco Use Types Packs/Day Years Used Date Smoking Tobacco: Former Cigarettes Q uit: 10/09/2010 Smokeless Tobacco: Never Sex and Gender Information Value Date Recorded Sex Assigned at Not on file Gender Identity Not on file Sexual Orientation Not on file documented as of this encounter Miscellaneous Notes * Treatment - Therapy - Ananya Torres, CAUL FAT PULLER - 03/11/2024 8:00 AM EDT Speech Therapy Note Patient Name: Elias Pennington Date of : 1960 Referring MD: Ronnie Jamil Date Seen by MD: 11/22/2023 Diagnosis: Cognitive-Communication Disorder Date of Onset: 2022 Date of Evaluation: 01/31/2024 Total Treatment Time: 56 minutes Certification Period: 01/31/2024 - 04/29/2024 Total Timed Code Treatment: 0 minutes Patient Profile: Elias Pennington is a 64 y.o. RIGHT hand dominant male who was seen on 01/31/2024 for an Outpatient Rnslvm-Vovlhpcc-Ybfynimxb Evaluation. PMHx is significant for CAD (3 stents here at [facility]), HLD, HTN, DMII (HbA1c unclear at this time), lumbar spinal stenosis, WILLIS on CPAP, and MDD. He was referred by Ronnie Jamil with a diagnosis of transient expressive aphasia, c/f TIA vs underlying seizure. MRI Angiogram Head wo Contrast is scheduled for 03/26/2024 with radiology as further work-up of these symptoms. Results of Elias's szaheb-gffioeqy-eodvexltu evaluation reveal the following: Results of standardized [...] the nearly two hour session. Interval History: Discussed with Dr. Jamil (Referring Provider) who stated, that an MRA of the headto evaluate his cerebral vasculature and routine EEG to evaluate for any background abnormalities were ordered, but otherwise there is no further workup to be pursued at this time. The physician stated that he agreed with CAUL FAT PULLER's recommendation to present to the ED if events persist or become prolonged in the meantime. Per formal interview, Elias reports he fell at home 5-6 days ago and is now taking a muscle relaxant for his back. He reports he hit his head during that event and is dealing with a slight concussion. He is unsure if he lost consciousness. He has not seen a doctor about this. He endorses tinnitusand generalized soreness, but no other complaints. He had a few instances of walking in circles looking for something that he cannot recall, which occurred before he hit his head. He has had a few word-finding difficulties at the word-level, but states they haven't been bad. Subjective: Elias was encountered in the outpatient rehab office, unaccompanied. He was pleasant and engaged throughout this session. Objective: Pt seen for speech therapy targeting [...] these strategies into day to day activities. He reported he has been working on the memory card games, still having some problems. Recommended patient implement writing as a strategy. He reported having no trouble setting timers/alarms and keeping important items in the same place. Discussed repetition as a strategy. Immediate recall: 2/5 +0 given moderate cueing. Functional Activity: Emergency Preparedness Wrote down emergency information / medication list to keep in patient's wallet for when transient aphasia symptoms emerge. Provided in-depth education on how to use this, as needed. Elias required minimal cueing for emergency information and moderate cueing for medication list. He recalled 6/14 medications and recognized the other 8. Patient agreed to compare med list today with the medications taken at home. He reported his brother is living with him for safety while cognitive work-up is being completed. Patient has a pay as you go phone. It was left in the car during this session. Requested patient tobring in his phone next time to determine if emergency information can be added to the phone for ease. Semantic Feature Analysis (SFA): Semantic Feature Analysis [...] and the properties or description of it. Phonological Components Analysis (WELL DIGGER): Phonological Components Analysis is a treatment approach based off of the principles and structure of SFA. It targets word-finding skills through the direct stimulation of phonological categories. Ptwas provided with a target picture and was asked to identify the first sound, another word that starts with that sound (first sound associate), final sound, rhyming word, and number of syllables. Completed two SFA and WELL DIGGER sheets for homework when had trouble with word- finding. He stated SFA helped him get the word. Education:Utilized a handout detailing CAUL FAT PULLER recommendations/compensatory strategies, specifically focusing on memory, attention, and word-finding. Re- educated on role of the CAUL FAT PULLER and overview of the rehab program. Provided in-depth compensatory strategy training and utilized them in functional activities as described above. At the end of the session Elias denied outstanding questions or concerns. Home Exercise Program: Recommend completion of cognitive stimulation exercises for a minimum of 30 minutes per day. Memory card game- handout provided. Semantic Feature Analysis and Phonological Components Analysis worksheets Think of examples of how to implement strategies into day to day life. Assessment: Elias Pennington was seen on 03/11/2024 for a follow-up CAUL FAT PULLER visit. Addressed treatment goals targeting education and implementation of strategies specifically focusing on attention, memory, and word-finding. He completed Semantic Feature Analysis and Phonological Components Analysis worksheets for homework and benefited from one cue for clarification of instructions. Created an external memory aid of medical information with Elias benefiting from minimal-moderate cueing. Elias reported that he had a mild concussion a few days ago. He did not see a medical provider about this. Also reported a few instance of walking in circles being unable to recall what he was doing. MRI Angiogram Head wo Contrast is scheduled for 03/26/2024 with radiology as further work-up of hiscognitive- linguistic symptoms. Recommend participation in skilled CAUL FAT PULLER services to further train compensatory strategies to bypass current cognitive-linguistic dysfunctions, target the hinduism of prior level of functioning, andaid in [...] you put somethingdown Association: linking old information (half-way memory) with new information such as taking medicine with breakfast External memory strategies: Write things down in a brand planner or on a calendar Set timers [...] the word, like playing a game of [employer]. Even gesturing with your hands in a [...] mind??? I'll ask you later.?? Adapted from: [email or web address]/ Patient would benefit from continued CAUL FAT PULLER services. Short Term Goals: - Patient will teach back compensatory language strategies with 100% accuracy given minimal cueing. - Patient will teach back compensatory cognitive-linguistic strategies with 100% accuracy given minimal cueing. - Patient will use trained bhmmqq-etgjclaw-cvppqtcxh strategies to complete a functional task with [...] of Semantic Feature Analysis given minimal cueing. Nursing Home Goal(s): - Patient will independently demonstrate compensatory and support strategies to improve cognitive-communicative effectiveness in the current living, community, and work environments. Plan: - Recommend skilled CAUL FAT PULLER services for 1x per week, every other week, 60 minute sessions, for 3 more sessions. Sessions will be held in-person. - Implementation of a Home Exercise Program - Patient to follow-up with referring provider, as needed Elias verbalized agreement with the treatment plan. Thank you for this consult with this patient. Please feel free to contact me with any questions or concerns. Ananya Torres MS, [facility]-CAUL FAT PULLER Speech-Language Pathologist Pager # [phone] documented in this encounter Plan of Treatment Upcoming Encounters Date Type Department Care Team (Late st Contact Info) Description 04/15/2024 8:00 AM EDT Office [place] [address] Ananya Torres, CAUL FAT PULLER documented as of this encounter Visit Diagnoses Diagnosis Cognitive communication deficit documented in this encounter Care Teams Comb Tender Relationship Specialty Start Date End Date Dandy Hodges [place] [address] PCP - General Internal Medicine 03/11/24 documented as of this encounter
--- OUTSIDE RECORDS SUMMARY | 2024-04-04 16:47 | XMS_ITS | Encounter Summary ---
Author Organization [facility] [place] [address] Care Team Providers Care Pillow Cleaner Name Role Phone Андрей Coello MD Primary Care Provider [phone] Reason for Visit * Speech Therapy (Routine) - Pending Review Specialty Diagnoses / Procedures Referred By Chin helm Referred To Contact Speech Pathology / Speech Therapy Diagnoses Aphasia RFV aphasia Ronnie Jamil MD [address] [place] [address] [place] [address] [facility] [employer] [place] [address] Referral ID Status Reason Start Date Expiration Date Visits Requested Visits Authorized [id number] Pending Review Evaluate and Treat 11/22/2023 11/21/2024 100 100 Encounter Details Date Type Department Care Team (Latest Contact Info) Description 02/12/2024 11:00 AM EDT Office [place] [phone] Ananya Torres, AUTHORIZATION REPRESENTATIVE Cognitive communication deficit Social History Tobacco Use Types Packs/Day Years Used Date Smoking Tobacco: Former Cigarettes Q uit: 10/09/2010 Smokeless Tobacco: Never Sex and Gender Information Value Date Recorded Sex Assigned at Not on file Gender Identity Not on file Sexual Orientation Not on file documented as of this encounter Miscellaneous Notes * Treatment - Therapy - Ananya Torres, AUTHORIZATION REPRESENTATIVE - 02/12/2024 11:00 AM EDT Speech Therapy [...] was seen on 01/31/2024 for an Outpatient Hirmnd-Cyqdjkrf-Ijlhtcgne Evaluation. PMHx is significant for CAD (3 stents here at [facility]), HLD, HTN, DMII (HbA1c unclear at this time), lumbar spinal stenosis, WILLIS on CPAP, and MDD. He was referred by Ronnie Jamil with a diagnosis of transient expressive aphasia, c/f TIA vs underlying seizure. MRI Angiogram Head wo Contrast is scheduled for 03/26/2024 with radiology as further work-up of these symptoms. Results of Elias's cuupor-lixemicl-ueovkoymx evaluation reveal the following: Results of standardized [...] wants to get a new one with smwqawl-xazy-wknpt slots. Brother is staying with him until they find out what is causing these episodes of transient aphasia. Card sorting activity: - Selective attention Pt provided with a deck of cards and was tasked with sorting by leslie. 52/52= 100% accuracy independently Memory Card Game: [...] 6/6 with minimal cueing. Phonological Components Analysis (CITY ASSESSOR): Phonological Components Analysis is a treatment approach [...] school per patient-report. Education:Utilized a handout detailing AUTHORIZATION REPRESENTATIVE recommendations/compensatory strategies, specifically focusing on memory, attention, and word-finding. Re- educated on role of the AUTHORIZATION REPRESENTATIVE and overview of the rehab program. Provided [...] was seen on 02/12/2024 for a follow-up AUTHORIZATION REPRESENTATIVE visit. Addressed treatment goals targeting education and [...] work-up, if possible. Recommend participation in skilled AUTHORIZATION REPRESENTATIVE services to further train compensatory strategies to bypass current cognitive-linguistic dysfunctions, target the christianity of prior level of functioning, andaid in [...] you put somethingdown Association: linking old information (assisted memory) with new information such as taking medicine with breakfast External memory strategies: Write things down in a transit planner or on a calendar Set timers [...] the word, like playing a game of [employer]. Even gesturing with your hands in a [...] mind??? I'll ask you later.?? Adapted from: [email or web address]/ Patient would benefit from continued AUTHORIZATION REPRESENTATIVE services. Short Term Goals: - Patient will teach back compensatory language strategies with 100% accuracy given minimal cueing. - Patient will teach back compensatory cognitive-linguistic strategies with 100% accuracy given minimal cueing. - Patient will use trained dfgsfs-gplyulqk-yypeppywd strategies to complete a functional task with [...] of Semantic Feature Analysis given minimal cueing. Group Home Goal(s): - Patient will independently demonstrate compensatory and support strategies to improve cognitive-communicative effectiveness in the current living, community, and work environments. Plan: - Recommend skilled AUTHORIZATION REPRESENTATIVE services for 1x per week, every other [...] any questions or concerns. Ananya Torres MS, [facility]-AUTHORIZATION REPRESENTATIVE Speech-Language Pathologist Pager # [phone] documented in this encounter Plan of Treatment Upcoming Encounters Date Type Department Care Team (Late st Contact Info) Description 04/15/2024 8:00 AM EDT Office [place] [address] Ananya Torres, AUTHORIZATION REPRESENTATIVE documented as of this encounter Visit Diagnoses Diagnosis Cognitive communication deficit documented in this encounter Care Teams Pillow Cleaner Relationship Specialty Start Date End Date Андрей Coello MD PCP - General 12/05/16 03/10/24 documented as of this encounter
--- OUTSIDE RECORDS SUMMARY | 2024-04-04 16:47 | XMS_ITS | Encounter Summary ---
Author Organization [facility] Address [facility] [place] [address] Care Team Providers Care Half Sole Fitter Name Role Phone Андрей Espinoza MD Primary Care Provider [phone] Encounter Details Date Type Department Care Team (Late st Contact Info) Description 02/18/2014 Orders [place] [address] Jay Valadez MD [facility] [place] [address] Social History Tobacco Use Types Packs/Day Years [...] AM EDT Office [place] [address] Ananya Torres, TUBE KNITTER documented as of this encounter Procedures Procedure [...] is a Non-reportable exam Jay Valadez MD [facility] FILM LIBRARY ORD ERABLES documented in this encounter Visit Diagnoses Not on filedocumented in this encounter Care Teams Half Sole Fitter Relationship Specialty Start Date End Date Андрей Espinoza MD PCP - General 06/14/10 10/19/14 documented as of this encounter
--- OUTSIDE RECORDS SUMMARY | 2024-04-04 16:47 | XMS_ITS | Encounter Summary ---
[place] [address] Care Team Providers Care Csr Name Role Phone Андрей Espinoza MD Primary Care Provider [phone] Reason for Visit * Reason Onset Date Comments Other 06/05/2013 CATH WORK UP Encounter Details Date Type Department Care Team (Late st Contact Info) Description 06/05/2013 Telephone Cardiology at [address] [phone] Lila Mccall Other (CATH WORK UP) Social [...] AM EDT Office [place] [address] Ananya Torres, MEDIA RELATIONS MANAGER documented as of this encounter Visit Diagnoses Not on filedocumented in this encounter Care Teams Csr Relationship Specialty Start Date End Date Андрей Espinoza MD PCP - General 06/14/10 10/19/14 documented as of this encounter
--- OUTSIDE RECORDS SUMMARY | 2024-04-04 16:47 | XMS_ITS | Encounter Summary ---
Author Organization [facility] [place] [address] Care Team Providers Care Computer Operations Technician Name Role Phone Андрей Coello MD Primary Care Provider [phone] Encounter Details Date Type Department Care Team [...] AM EDT Office [place] [address] Ananya Torres, SUPERVISOR PIPE JOINTS documented as of this encounter Visit Diagnoses Not on filedocumented in this encounter Care Teams Computer Operations Technician Relationship Specialty Start Date End Date Андрей Coello MD PCP - General 12/05/16 03/10/24 documented as of this encounter
--- OUTSIDE RECORDS SUMMARY | 2024-04-04 16:47 | XMS_ITS | Encounter Summary ---
[place] [address] Care Team Providers Care Manager Building Name Role Phone Dandy Hodges Primary Care Provider + Encounter Details Date Type Department Care Team (Late Contact Info) Description 03/25/2024 Orders [place] [phone] Ronnie Jamil MD [address] [place] [address] [place] [address] TIA (transient ischemic attack); Aphasia Social History [...] AM EDT Office [place] [phone] Ananya Torres, WARP KNIT OPERATOR documented as of this encounter Results * EEG (03/26/2024 3:26 PM EDT) Narrative Gio Ruiz MD - 03/26/2024 3:26 PM EDT Gio Ruiz MD ? 03/27/2024 ??3:42 PM [facility] Department of Neurology Outpatient Routine EEG [...] channel digitized electroencephalogram was performed in the [facility] Clinical Neurophysiology Laboratory. The 10/20 international system of electrode placement was used and bipolar and referential electrode montages were recorded. ??In addition to EEG the patient was monitored for EKG and lateral/vertical eye movements. Video was recorded during the session. DECK LID FITTER'S REPORT: Performed by: LEE Lacey Patient was [...] ischemic attack) Unspecified transient cerebral ischemia Aphasia TIA (transient ischemic attack) Unspecified transient cerebral ischemia Aphasia documented in this encounter Care Teams Manager Building Relationship Specialty Start Date End Date Dandy Hodges PA [address] [place] [address] PCP - General Internal Medicine 03/11/24 documented as of this encounter
--- OUTSIDE RECORDS SUMMARY | 2024-04-04 16:47 | XMS_ITS | Encounter Summary ---
[place] [address] Care Team Providers Care Veterinary Medicine Teacher Name Role Phone Андрей Coello MD Primary Care Provider [phone] Reason for Referral * Diagnostic Test (Routine) - Closed Specialty Diagnoses / Procedures Referred By Contac t Referred To Contact Cardiology Diagnoses TIA (transient ischemic attack) Procedures Echocardiogram Transthoracic Echocardiogram Transthoracic Ronnie Sánchez MD [address] [place] [address] [place] [address] [facility] [place] [address] Referral ID Status Reason Start Date Expiration Date V isits Requested Visits Authorized [id number] Closed Specialty Service Requested 11/22/2023 11/21/2024 1 1 * Diagnostic Test (Routine) - Closed Specialty Diagnoses / Procedures Referred By Contac t Referred To Contact Radiology Diagnoses TIA (transient ischemic attack) Procedures MRI Angiogram Head wo Contrast (Generic) Ronnie Sánchez MD [address] [place] [address] [place] [address] [facility] [place] [address] Referral ID Status Reason Start Date Expiration Date V isits Requested Visits Authorized [id number] Closed Specialty Service Requested 11/22/2023 05/24/2025 1 1 * Speech Therapy (Routine) - Pending Review Specialty Diagnoses / Procedures Referred By Chin helm Referred To Contact Speech Pathology / Speech Therapy Diagnoses Aphasia RFV aphasia Ronnie Sánchez MD [address] [address] [place] [address] [facility] [place] [address] Referral ID Status Reason Start Date Expiration Date Visits Requested Visits Authorized [id number] Pending Review Evaluate and Treat 11/22/2023 11/21/2024 100 100 Reason for Visit * Reason Comments Aphasia * Consultation (Routine) - Closed Specialty Diagnoses / Procedures Referred By Chin helm Referred To Contact Neurology Diagnoses Expressive language disorder ? Андрей Bueno MD [address] [place] [address] [place] [address] [facility] [address] [place] [address] Referral ID Status Reason Start Date Expiration Date V isits Requested Visits Authorized [id number] Closed Consult, Test & Treat 07/05/2023 07/04/2024 1 1 Encounter Details Date Type Department Care Team ([facility] st Contact Info) Description 11/22/2023 10:00 AM EDT Office [place] [address] Ronnie Sánchez MD [address] [place] [address] [place] [address] TIA (transient ischemic attack); Aphasia Social History [...] encounter Patient Instructions * Patient Instructions* Ronnie Sáncehz MD - 11/22/2023 10:00 AM EDT - [...] Care Everywhere. * TIA (Transient Ischemic Attack) ([place] Citizen) * Stroke: Symptoms: General Info ([place] Citizen) documented in this encounter Progress Notes * Ronnie Sánchez MD - 11/22/2023 10:00 AM EDT [facility] DEPARTMENT OF NEUROLOGY GENERAL NEUROLOGY CLINIC INITIAL VISIT Patient name: Elias Perez Date of : 1960 Referring provider: Андрей Coello MD [address] [place] [address] PCP: Андрей Coello MD [facility] [place] [address] Date: 11/22/2023 Time: 10:00 CC: Chief Complaint Patient presents with Aphasia HPI: Elias Perez is a 63 y.o. R-handed man with a history of CAD (3 stents here at [facility] [place]), HLD, HTN, DMII (HbA1c unclear at this time), lumbar spinal stenosis, WILLIS on CPAP, and MDD referred to the [facility] [place] neurology clinic for evaluation of transient neurological [...] happened again, was a short stutter. Lasted -12 seconds at the time. 3 weeks ago [...] works, currently on disability. 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 No dysmetria. Gait unremarkable. Labs/Data/Results: [...] history of CAD (3 stents here at [facility] [place]), HLD, HTN, DMII (HbA1c unclear at this time), lumbar spinal stenosis, WILLIS on CPAP, and MDD referred to the [facility] [place] neurology clinic forevaluation of transient neurological symptoms, [...] of cardiac risk factors. - Will obtain BODY TRIMMER evaluation. - Will obtain TTE w/ bubble [...] a total of 60 minutes on this flks-vm-jisq encounter on the date of service. This included: [x] Preparing to see the patient, review of laboratory test results and medical record [] Independently interpreting neuroimaging or neurophysiological results [x] Obtaining and/or reviewing separately obtained history (eg, outside records, caregiver) [x] Counseling and educating the patient/family/caregiver [] Referring and communicating with other health foster care case manager [x] Documenting clinical information in the electronic or other health record [] Care coordination Ronnie Sánchez MD Station Captain Department of Neurology [facility] [address] P F documented in this encounter Plan of Treatment Upcoming Encounters Date Type Department Care Team (Late st Contact Info) Description 04/15/2024 8:00 AM EDT Office [place] [address] Ananya Torres, BODY TRIMMER Scheduled Orders Name Type Priority Associated Diagnoses Orde r Schedule EEG Neurology Routine Aphasia Expected: 11/22/2023, Expires: 02/22/2024 Scheduled Referrals Name Type Priority Associated Diagnoses Orde r Schedule Referral to Speech Therapy Outpatient Referral Routine Aphasia Ordered: 11/22/2023 documented as of this encounter Results * MRI Angiogram Head wo Contrast (Generic) (03/26/2024 10:27 AM EDT) [employer] WORKSTATION ID [id number] [facility] Anatomical Region Laterality Modality Head Magnetic Resonan [...] who have questions please contact the health animal care provider that requested your imaging first. ? Electronically signed by: Venancio Parsons [facility] [place] [facility] ([phone]), at 03/26/2024 1:24 PM Narrative 03/26/2024 1:24 PM EDT EXAMINATION: MRI [...] and caliber of the ACAs, MCAs, and donor relations coordinator. No aneurysms. Hypoplastic left P-comm, normal [...] and caliber of the ACAs, MCAs, and donor relations coordinator. No aneurysms. Hypoplastic left P-comm, normal [...] patients who have questions please contactthe health animal care provider that requested your imaging first. Ronnie Sánchez MD IMG MRI ORDERABLES * ECHO COMPLETE (03/26/2024 10:05 AM EDT) Anatomical Region Laterality Modality Cardiac Other 03/26/2024 9:10 AM EDT Narrative 03/26/2024 10:09 AM EDT [address] [place] [address] ? Echocardiogram Report Name: PEREZELIAS ? Study Date: 03/26/2024 09:10 AMBP: 110/38 mmHg ? Patient Location: 4A : 1960 ? Height: 183 cm ? Account: [id number] Age: 64 yrs ? Weight: 128 kg Gender: Male ?BSA: 2.5 m2 Ordering Physician: RONNIE SÁNCHEZ Referring Physician: RONNIE SÁNCHEZ Performed By: USR Exam Location: [facility]. Interpretation Summary Left ventricle is of normal size. Wall thickness is normal. Left ventricular systolic function is normal. The left ventricular ejection fraction is 55% by Thorne's biplane. There are no segmental wall motion abnormalities. The right ventricle is of normal size. Right ventricular systolic function is normal. There is no evidence for a patent foramen ovale visualized with agitated saline. Procedure Complete-[id number]. Satisfactory quality. Left Ventricle Left ventricle is [...] cm/sec MV E/A: 1.4 Lat Peak E' Justny: 9.4 cm/sec E/e' (lat): 8.8 Med Peak [...] Note Earnest Honeycutt MD - 03/26/2024 [address] [place] [address] Echocardiogram Report Name: ELIAS PEREZ Study Date: 409:10 AMBP: 110/38 mmHg Patient Location: : 1960 Height: 183 cm Account: [id number] Age: 64 yrs Weight: 128 kg Gender: Male BSA: 2.5 m2 Ordering Physician: RONNIE SÁNCHEZ Referring Physician: RONNIE SÁNCHEZ Performed By: USR Exam Location: [facility]. Interpretation Summary Left ventricle is of normal size. Wall thickness is normal. Leftventricular systolic function is normal. The left ventricular ejection fraction is 55%by Thorne's biplane. There are no segmental wall motion abnormalities. The right ventricle is of normal size. Right ventricular systolic functionis normal. There is no evidence for a patent foramen ovale visualized with agitatedsaline. Procedure Complete-[id number]. Satisfactory quality. Left Ventricle Left ventricle is [...] (transient ischemic attack) Unspecified transient cerebral ischemia TIA (transient ischemic attack) Unspecified transient cerebral ischemia documented in this encounter Care Teams Veterinary Medicine Teacher Relationship Specialty Start Date End Date Андрей Coello MD PCP - General 12/05/16 03/10/24 documented as of this encounter
--- OUTSIDE RECORDS SUMMARY | 2024-04-04 16:47 | XMS_ITS | Encounter Summary ---
Author Organization [facility] [place] [address] Care Team Providers Care Metal Mockup Maker Name Role Phone Андрей Coello MD Primary Care Provider [phone] Encounter Details Date Type Department Care Team (Late Contact Info) Description 11/26/2023 Telephone Neurology at [facility] [place] [phone] Ronnie Jamil MD [address] [place] [address] [place] [address] Social History Tobacco Use Types Packs/Day Years Used Date Smoking Tobacco: Former Cigarettes Q uit: 10/09/2010 Smokeless Tobacco: Never Sex and Gender Information Value Date Recorded Sex Assigned at Not on file Gender Identity Not on file Sexual Orientation Not on file documented as of this encounter Miscellaneous Notes * Telephone Encounter - Shirley Guillaume - 11/26/2023 10:28 AM EDT Copied from [facility] #[id number]. Topic: Specialty Dept CRMs - Generic Call >> November 22, 2023 1:20 PM Jenna Juarez wrote: Specialist: Aubrey Jamil MD Relationship (if other than patient-full name): [facility] Reason for Call: [facility] was calling as they received a fax for imaging records and films that was to be sent to [facility] documented in this encounter Plan of Treatment Upcoming Encounters Date Type Department Care Team (Late Contact Info) Description 04/15/2024 8:00 AM EDT Office [place] [address] Ananya Torres, [employer] documented as of this encounter Visit Diagnoses Not on filedocumented in this encounter Care Teams Metal Mockup Maker Relationship Specialty Start Date End Date Андрей Coello MD PCP - General 12/05/16 03/10/24 documented as of this encounter
--- OUTSIDE RECORDS SUMMARY | 2024-04-04 16:48 | XMS_ITS | Encounter Summary ---
Author Organization [facility] Address [facility] [place] [address] Care Team Providers Care Rn Acls Name Role Phone Sammy Thompson MD Primary Care Provider [phone] Reason for Referral * (Routine) - Closed by system - unspecified Specialty Diagnoses / Procedures Referred By Contac t Referred To Contact Diagnoses CAD (coronary artery disease) Elias Chapa MD [facility] [place] [address] Referral ID Status Reason Start Date Expiration Date Visits Requested Visits Authorized [id number] Closed by system - unspecified Evaluate and Treat 04/08/2011 10/05/2011 1 1 Encounter Details Date Type Department Care Team (Latest Contact Info) Description 04/07/2011 6:33 AM EDT - 04/08/2011 12:14 PM EDT Hospital Encounter Intermediate [place] [address] Emily Mi PA [facility] [place] [address] Elias Chapa MD [facility] [place] [address] CAD (coronary artery disease) Discharge Disposition: Home [...] Everywhere. * CARDIAC CATHETERIZATION: AFTER YOUR VISIT (THAI) documented in this encounter Medications at Time of Discharge Medication Sig Dispensed Refills Start Date End Date aspirin 325 mg EC tablet Take 1 tablet by mouth daily. 30 tablet 04/08/2011 amlodipine (NORVASC) 10 mg tablet Take 10 mg by mouth daily. metoprolol tartrate (LOPRESSOR) 25 mg tabletIndications :hypertension Take 50 mg by mouth 2 times daily. Indications: hypertension nitroGLYcerin (NITROSTAT) 0.4 mg SL tablet 0.4mg, Sublingual, PRN 05/15/2005 pravastatin (PRAVACHOL) 40 mg tabletIndications :hypertriglycerid emia Take 40 mg by mouth daily. Indications: Hypertriglyceridemia 01/25/2017 documented as of this encounter Progress Notes * Odilon Peña RN - 04/08/2011 12:33 PM EDT Ambulated without c/o chest discomfort.R groin slightly sore. 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 Dc to home orders written. Dc info reviewed including meds. Plavix prescription arranged by [facility].Does not want to participate in outpatient cardiac rehab. Comfortable with dc ,discharged/ * Дмитрий North MSW - 04/08/2011 10:02 AM EDT Office of Care Management Social Work Radio Reporter Note Relevant Information: SW paged by [facility] Sat am, as pt is being dc'd on Plavix, says he has no $. I met w/pt, who says he has Cigna rx coverage, but cannot afford copay, as he is out of work and just filled all his other rx before coming to [facility]. Pt's is coming to pick him up today. Assessment: I noted [facility] can either cover cost of Cigna copay or the month's Plavix; Pt is expected to be on Plavix just 30 days, per Cardi. Plan: I asked pt to have rx card run by [facility], and I spoke with Pharmacy. [facility] [...] Phase 2 in 2003 s/p PCI in [facility] but would like to join again. RN will ambulate pt once he is off bedrest. See notes for activity details. Participation to the outpatient cardiac rehabilitation program at [facility] was discussed. A referral will be sent to the program and the patient will be contacted within 2 weeks. documented in this encounter H&P Notes * Elias Chapa MD - 04/07/2011 10:21 AM EDT Elias Pennington [id number] 04/07/2010 51 y.o. Admission History and Physical [...] ischemia. . Patient was therefore brought to [facility] for [facility] possible PCI. Catheterization revealed a long 60% [...] 04/10/2011 10:03 AM EDTAssociated Order(s): SCAN DOC: WOOD MODEL BUILDER documented in this encounter Miscellaneous Notes * Miscellaneous - Provider, Scanning - 04/10/2011 9:52 AM EDT * Discharge Summary - Elias Chapa MD - 04/08/2011 8:31 AM EDT Physician Discharge Summary Patient ID: Elias Pennington [id number] 51 y.o. 1960 Admit date: 04/07/2011 Discharge [...] ischemia. . Patient was therefore brought to [facility] for [facility] possible PCI. Catheterization revealed a long 60% [...] 0.00 - 0.05 (x10(3)/mcL) Patient Instructions: Unchanged DRAW BENCH OPERATOR meds that are or will be resumed [...] tablet by mouth daily. 30 tablet 0 DRAW BENCH OPERATOR meds that are DCed or will be [...] (Dr. Thompson) in 1-2 weeks, and your Title Inspector(Dr. Peña) in 4-6 weeks. Please contact each [...] AM EDT Office [place] [address] Ananya Torres, SILK SCREEN OPERATOR Scheduled Orders Name Type Priority Associated Diagnoses [...] IMPLANTABLE DEVICES SCAN 04/10/2011 11:38 AM EDT WOOD MODEL BUILDER SCAN 04/10/2011 10:03 AM EDT BMP W/FASTING GLUCOSE Routine 04/08/2011 4:13 AM EDT DIFFERENTIAL, AUTOMATED Routine 04/08/20 11 4:13 AM EDT CARDIAC ENZYMES ([facility]/CGP) Routine 04/08/2011 4:13 AM EDT CBC (WITH DIFF) Routine 04/08/2011 4:13 AM EDT HEMOGLOBIN A1C Routine 04/08/2011 4:13 AM EDT LIPID PANEL (REFLEX DIRECT LDL) Routine 04/08/2011 4:13 AM EDT EKG 12-LEAD STAT 04/07/2011 7:09 PM EDT CAD (coronary artery disease) EKG 12-LEAD Routine 04/07/2011 10:38 AM EDT CAD (coronary artery disease) CARDIAC ENZYMES ([facility]/CGP) STAT 04/07/2011 10:02 AM EDT CARDIAC CATHETERIZATION [...] SCAN EXT O RDR/RSLT * SCAN DOC: WOOD MODEL BUILDER (04/10/2011 10:03 AM EDT) Anatomical Region Laterality Modality Other Narrative 04/10/2011 10:48 AM EDT Procedure Note Provider, Scanning - 04/10/2011 10:03 AM EDT Scanning Provider MEDIA MGR SCAN EXT O RDR/RSLT * REFLEX LAB-A-DIFF (04/08/2011 4:13 AM EDT) Neutrophil % 55.7 34.0 - 71.0 % [facility] Neutrophil Absolute 3.49 1.50 - 6.30 x10(3)/mcL [...] Gran % 0.20 0.00 - 0.66 % [facility] Comment: Immature granulocytes(IG's)percentage and absolute count will include metamyelocytes, myelocytes, and promyelocytes. Blood smears from CBCs yielding IG's will be scanned manually for concordance. If this scan disagrees with the automated IG or if promyelocytes are noted, a manual differential will be performed. Immature Gran Absolute 0.01 0.00 - 0.05 x10(3)/mcL [facility] Blood specimen (specimen) 04/08/2011 4:13 AM EDT 04/08/2011 4:23 AM EDT Elias Chapa MD HEMATOLOGY ORDERABLE S [facility] * Hemoglobin A1c (04/08/2011 4:13 AM EDT) Hemoglobin A1c 5.7 4.3 - 6.1 % [facility] Estimated Average Glucose 117 mg/dL [facility] Comment: eAG equivalents for HbA1c percentages: [...] into estimated average glucose values. ??Diabetes Care 2008:31(8):2524-6804. Blood specimen (specimen) 04/08/2011 4:13 AM EDT 04/08/2011 4:23 AM EDT Elias Chapa MD CHEMISTRY ORDERABLES [facility] * Cardiac Enzymes (04/08/2011 4:13 AM EDT) Troponin-T <0.03 <=0.03 ng/mL [facility] Comment: 0.03 ng/mL: Represents the 99th percentile upper reference limit for normals. >0.03 ng/mL: Elevated cardiac troponin T level indicative of myocardial damage. Diagnosis of acute, evolving or recent NC requires a typical rise and gradual fall [...] consensus document of the Joint Society of Cardiology/Micronesian College of Cardiology Committee for the redefinition of myocardial infarction. Journal of the Micronesian College of Cardiology 2000; 36: 959-969] Creatine Kinase 76 0 - 200 unit/L [facility] Blood specimen (specimen) 04/08/2011 4:13 AM EDT 04/08/2011 4:23 AM EDT Elias Chapa MD CHEMISTRY ORDERABLES [facility] * CBC (with Diff) (04/08/2011 4:13 AM [...] 04/08/2011 4:23 AM EDT Elias Chapa MD [facility] LYNNE ROSENBAUM * (ABNORMAL) Lipid panel (fasting) (04/08/2011 4:13 AM EDT) Cholesterol, Total 139 <=199 mg/dL [facility] Comment: Recommendations of the NCEP Adult Treatment Panel for the following risk cutoff thresholds for the [place] population: Desirable: <200 mg/dL Borderline High: 200-239 mg/dL High: > or = 240 mg/dL Triglyceride 114 <=149 mg/dL [facility] Comment: Reference Range: Normal triglycerides: ??<150 mg/dL Borderline high: ??150-199 mg/dL High: ??200-499 mg/dL Very high: ??>zq=325 mg/dL XIOMARA 2001; 285(19):4805-4721 HDL Cholesterol 36(L) >=40 mg/dL [facility] N[facility] Comment: Reference range: ??Low HDL: ?? < 40 mg/dL ??Normal: ?40-60 mg/dL ??Desirable: > 60 mg/dL XIOMARA 2001; 285(19):3442-0793 LDL Cholesterol 80 <=99 mg/dL [facility] NER [facility] Comment: Reference range: ?? Optimal: ?<100 mg/dL ?? Near Optimal/Above Optimal: ?? 100-129 mg/dL ?? Borderline high: ?130-159 mg/dL ?? High: ? 160-189 mg/dL ?? Very high: ?>ci=604 mg/dL XIOMARA 2001: 285(19):9847-0269 Cholesterol/HDL Ratio 3.9 ratio [facility] Comment: A Cholesterol to HDL ratio below 4:1 is desirable. ??Studies suggest that increased CAD risk occurs at ratios above 5 for females and above 6 for men. ? Micronesian Heart Association ??(http://www.americanheart.org) ? Bev Int Med, [...] of Diabetes Mellitus, Position Statement from the Micronesian Diabetes Association. ??Diabetes Care, Volume 33, Supplement [...] EDT Elias Chapa MD CHEMISTRY ORDERABLES LYNNE GARCIAIUM * EKG 12 Lead (04/07/2011 7:09 PM EDT) Ventricular rate 63 BPM MUSE SYSTEM Atrial Rate 63 BPM MUSE SYSTEM P-R Interval 194 ms MUSE SYSTEM QRS Duration 88 ms MUSE SYSTEM Q-T Interval 398 ms MUSE SYSTEM QTC Calculated (Bezet) 407 ms MUSE SYSTEM Calculated P [place] 31 degrees MUSE SYSTEM Calculated R [place] 0 degrees MUSE SYSTEM Calculated T [place] 7 degrees MUSE SYSTEM INTERPRETATION Normal sinus rhythm Normal ECG When compared with ECG of 07-APR-2011 10:38, No significant change was found Confirmed by MD Yang Robert ([id number]) on 04/08/2011 7:23:03 AM MUSE SYSTEM 04/07/2011 7:09 PM EDT 04/08/2011 7:23 AM EDT Elias Chapa MD ECG ORDERABLES Performing Organization Address [facility] de Phone Number MUSE SYSTEM * EKG 12 Lead (04/07/2011 10:38 AM EDT) Ventricular rate 63 BPM MUSE SYSTEM Atrial Rate 63 BPM MUSE SYSTEM P-R Interval 178 ms MUSE SYSTEM QRS Duration 88 ms MUSE SYSTEM Q-T Interval 398 ms MUSE SYSTEM QTC Calculated (Bezet) 407 ms MUSE SYSTEM Calculated P [place] 50 degrees MUSE SYSTEM Calculated R [place] 6 degrees MUSE SYSTEM Calculated T [place] 28 degrees MUSE SYSTEM INTERPRETATION Normal sinus rhythm Normal ECG When compared with ECG of 21-APR-2005 15:41, No significant change was found Confirmed by MD Moore Timothy ([id number]) on 04/07/2011 11:48:22 AM MUSE SYSTEM 04/07/2011 10:3 8 AM EDT 04/07/2011 11:48 AM EDT Elias Chapa MD ECG ORDERABLES Performing Organization Address [facility] Phone Number MUSE SYSTEM * Cardiac Enzymes (04/07/2011 10:02 AM EDT) Pathologist [facility] Troponin-T <0.03 <=0.03 ng/mL [facility] Comment: 0.03 ng/mL: Represents the 99th percentile upper reference limit for normals. >0.03 ng/mL: Elevated cardiac troponin T level indicative of myocardial damage. Diagnosis of acute, evolving or recent NC requires a typical rise and gradual fall [...] consensus document of the Joint Society of Cardiology/Micronesian College of Cardiology Committee for the redefinition of myocardial infarction. Journal of the Micronesian College of Cardiology 2000; 36: 959-969] Creatine Kinase 62 0 - 200 unit/L LYNNE ROSENBAUM Blood specimen (specimen) 04/07/2011 10:02 AM EDT 04/07/2011 10:25 AM EDT Elias Chapa MD CHEMISTRY ORDERABLES LYNNE ROSENBAUM documented in this encounter Visit Diagnoses Diagnosis CAD (coronary artery disease) Coronary atherosclerosis of unspecified type of vessel, torres martinez or graft Knee injuries Injury, other and [...] on Sun04/07/11 at 1100, Until Sun04/07/11 at 205 New Bag 04/07/2011 10:45 AM EDT 100 [...] Routine 1300 (Given - Provider: Tk Novoa RN)2058 (Given - Provider: Veronica Allen RN) 0900 [...] for throat/chest discomfort)2021 (Given - Provider: Veronica Allen RN) bivalirudin (ANGIOMAX) 250 mg in sodium chloride 0.9% 50 mL infusion (NECKTIE OPERATOR POCKETS AND PIECES) (CANCELED) CONTINUOUS PRN, Starting on Sun04/07/11 at [...] Routine 0854 (Given - Provider: Blake Hamilton, RN) midazolam (VERSED) injection (COMPLETED) ONCE PRN, [...] Jr.) documented in this encounter Care Teams Rn Acls Relationship Specialty Start Date End Date Sammy Thompson MD PCP - General 06/14/10 10/19/14 documented as of this encounter
--- OUTSIDE RECORDS SUMMARY | 2024-04-04 16:48 | XMS_ITS | Encounter Summary ---
Author Organization [facility] Address [address] [place] [address] Care Team Providers Care Electrical Line Splicer Name Role Phone Unknown, Provider Primary Care Provider [phone] Андрей Coello MD Primary Care Provider [phone] Encounter Details Date Type Department Care Team (Late st Contact Info) Description 09/13/2019 Lab Requisition [facility] Pathology & Laboratory Medicine - [facility] [address] [place] [address] Unknown, Provider, Social History Tobacco Use Types [...] H. Pylori Negative Negative 09/16/2019 13:[address] [facility] Feces SPECIMEN FROM RECTUM / Unknown 09/13/2019 8:35 EST 09/14/2019 15:[address] [facility] - 09/16/2019 13:38 EST Results were obtained with the [employer] [place] [facility] Plus EVELINE. Provider Unknown MICROBIOLOGY - GENER AL ORDERABLES [facility] [address] [place] [address] documented in this encounter Visit Diagnoses Not on filedocumented in this encounter Care Teams Electrical Line Splicer Relationship Specialty Start Date End Date Unknown, Provider, PCP - General 07/29/10 08/22/22 Андрей Coello MD [facility] [place] [address] PCP - General 08/23/22 documented as of this encounter
--- OUTSIDE RECORDS SUMMARY | 2024-04-04 16:48 | XMS_ITS | Encounter Summary ---
Author Organization [facility] Address [facility] [place] [address] Care Team Providers Care Pocket Stitcher Name Role Phone Андрей Espinoza MD Primary Care Provider [phone] Reason for Visit * Reason Onset Date Comments Chest Pain 04/06/2011 cath teaching Encounter Details Date Type Department Care Team (Late st Contact Info) Description 04/06/2011 Telephone Cardiology at [address] [phone] Elias Yepez MD [facility] [place] [address] Chest Pain (cath teaching) Social History Tobacco [...] AM EDT Office [place] [address] Ananya Torres, TUBER OPERATOR documented as of this encounter Visit Diagnoses Not on filedocumented in this encounter Care Teams Pocket Stitcher Relationship Specialty Start Date End Date Андрей Espinoza MD PCP - General 06/14/10 10/19/14 documented as of this encounter
--- OUTSIDE RECORDS SUMMARY | 2024-04-04 16:48 | XMS_ITS | Encounter Summary ---
Author Organization [facility] Address [facility] [place] [address] Care Team Providers Care Metal Solderer Name Role Phone Андрей Espinoza MD Primary Care Provider [phone] Encounter Details Date Type Department Care Team (Late st Contact Info) Description 04/07/2011 8:41 AM EDT Anesthesia Event [place] [address] Marlon Grossman MD [facility] [place] [address] Anesthesia Record Procedure Summary Procedure Name Responsible [...] RN LDA Cath/EP Sheath 04/07/11; 0911; 6 Salvadorean (Fr) (6F); Right; Femoral 04/07/11 0911 by [...] RN LDA Cath/EP Sheath 06/10/13; 1143; 6 Salvadorean (Fr); Right (Right radial artery sheath); Wrist 06/10/13 1143 by Shabana Anderson RN 06/10/13 1215 by Shabana Anderson RN (RETIRED) Peripheral IV Line - Single Lumen 01/26/17; 1225; basilic vein (medial side of arm), left; nfxt-sox-iyyyyt catheter system; 20 gauge, 1 in length; Arthur Dubose RN; distraction, intradermal injection, tolerated well, appears comfortable; 01/26/17; 1623 01/26/17 1225 by Jose Dubose RN 01/26/17 1623 by Genia Goodman RN (RETIRED) Peripheral IV Line - Single Lumen 01/26/17; 1238; median cubital vein (antecubital fossa), right; mfum-gyr-qlijte catheter system; 18 gauge, 1 in length; Arthur Dubose RN; distraction, intradermal injection, tolerated well, appears comfortable; 01/26/17; 1623 01/26/17 1238 by Jose Dubose RN 01/26/17 1623 by Genia Goodman RN LDA Cath/EP Sheath 01/26/17; 1349; 6 Salvadorean (Fr) (slender); Right; Wrist (radial artery) 01/26/17 1349 by Irina Casarez RN 07/07/17 1404 by Hermelindo, Irina G, RN (RETIRED) Peripheral IV Line - Single Lumen 10/19/20; 1235; metacarpal vein (top of hand), left; xyvu-nrs-mtpfld catheter system; Anatomical Landmarks; 20 gauge; jacoby; intradermal injection; no longer indicated; 10/19/20; 1718 10/19/20 1235 by Iliana Grewal RN 10/19/20 1718 by Michael Honeycutt RN LDA Cath/EP Sheath 10/19/20; 1353; 6 Salvadorean (Fr) (slender); Right; Wrist (radial artery) 10/19/20 1353 by Lynne Becker RN 10/19/20 1411 by Lynne Becker RN documented in this encounter Social History [...] AM EDT Office [place] [address] Ananya Torres, CUSTOM STUDIO COORDINATOR documented as of this encounter Visit Diagnoses Not on filedocumented in this encounter Care Teams Metal Solderer Relationship Specialty Start Date End Date Андрей Espinoza MD PCP - General 06/14/10 10/19/14 documented as of this encounter
--- OUTSIDE RECORDS SUMMARY | 2024-04-04 16:48 | XMS_ITS | Referral Summary ---
Author Organization [facility] Address [address] [place] [address] Care Team Providers Care Automotive Starter Repairer Name Role Phone Андрей Coello MD Primary Care Provider [phone] Social History Tobacco Use Types Packs/Day Years Used Date Smoking Tobacco: Never Assessed Sex and Gender Information Value Date Recorded Sex Assigned at Not on file Gender Identity Not on file Sexual Orientation Not on file Plan of Treatment Not on file Care Teams Automotive Starter Repairer Relationship Specialty Start Date End Date Андрей Coello MD [place] [address] PCP - General 08/23/22
--- OUTSIDE RECORDS SUMMARY | 2024-04-04 16:48 | XMS_ITS | Encounter Summary ---
Author Organization [facility] Address [address] [place] [address] Care Team Providers Care Data Processing Systems Project Planner Name Role Phone Unknown, Provider Primary Care Provider [phone] Encounter Details Date Type Department Care Team (Late st Contact Info) Description 01/17/2017 Historical Results Only [facility] - Main [address] [address] Toby Song MD [address] [place] [phone] Social History Tobacco Use Types Packs/Day [...] METABOLIC PANEL (BMP) (01/17/2017 15:55 EDT) [facility] 13 7 - 18 mg/dL 01/17/2017 17:11 EDT [facility] CALCIUM [facility] 9.0 8.5 - 10.1 mg/dL 01/17/2017 17:11 [facility] Chloride 105 98 - 107 mEq/L 01/17/2017 17:11 [facility] CO2 Total 27 21 - 32 mEq/L 01/17/2017 17:11 [facility] CREATININE 0.81 0.5 - 1.3 mg/dL 01/17/2017 17:11 [facility] eGFR >60 01/17/2017 17:11 [facility] Comment: Chronic renal impairment is defined as GFR <60 Multiply result by 1.210 for patients. Anion Gap 8 5 - 15 01/17/2017 17:11 [facility] GLUCOSE - [facility] 83 70 - 100 mg/dL 01/17/2017 17:11 [facility] Potassium 4.1 3.5 - 5.0 mEq/L 01/17/2017 17:11 [facility] Sodium 140 135 - 145 mEq/L 01/17/2017 17:11 [facility] 01/17/2017 15:5 5 EDT 01/17/2017 15:55 EDT Toby Song MD CHEMISTRY & BLOOD G ORDERABLES [facility] * COMPLETE BLOOD COUNT WITH DIFFERENTIAL (AUTO) (01/17/2017 15:55 EDT) ABSOLUTE NEUTROPHIL COUN - [facility] 4.71 1.7 - 7.0 10e3/ul 01/17/2017 16:45 EDT [facility] BASO # - CV 0.03 0.0 - 0.3 10e3/uL 01/17/2017 16:45 [facility] BASO % - [facility] 0 0 - 2 % 01/17/2017 16:45 [facility] EOS # - [facility] 0.14 0.05 - 0.5 10e3/uL 01/17/2017 16:45 [facility] EOS % - [facility] 2 0 - 5 % 01/17/2017 16:45 [facility] GRAN % - [facility] 61 40 - 80 % 01/17/2017 16:45 [facility] HEMATOCRIT - [facility] 42.5 36.0 - 52.0 % 01/17/2017 16:45 [facility] HEMOGLOBIN - [facility] 13.9 13.7 - 17.5 g/dl 01/17/2017 16:45 [facility] IG# - [facility] 0.01 0 - 0.07 10e3/uL 01/17/2017 16:45 [facility] IG% - [facility] 0.1 0 - 0.9 % 01/17/2017 16:45 [facility] LYMPH # - [facility] 2.41 0.9 - 2.9 10e3/uL 01/17/2017 16:45 [facility] LYMPH% - [facility] 31 20 - 40 % 01/17/2017 16:45 [facility] MEAN CORPUSCULAR HGB - [facility] 27.5 26 - 34 pg 01/17/2017 16:45 [facility] MEAN CORPUSCULAR HGB CONC - [facility] 32.7 31 - 36 g/dL 01/17/2017 16:45 [facility] MEAN CELL VOLUME - [facility] 84.2 77 - 100 fl 01/17/2017 16:45 [facility] MONO # - [facility] 0.38 0.3 - 0.9 10e3/uL 01/17/2017 16:45 [facility] MONO% - [facility] 5 0 - 12 % 01/17/2017 16:45 [facility] PLATELET COUNT 192 150 - 400 10e3/ul 01/17/2017 16:45 [facility] RED BLOOD COUNT - [facility] 5.05 4.3 - 5.7 10e6/ul 01/17/2017 16:45 [facility] RED CELL DISTRI WIDTH - [facility] 13.9 11.8 - 15.6 % 01/17/2017 16:45 [facility] WHITE BLOOD COUNT - [facility] 7.7 3.5 - 10.5 10e3/ul 01/17/2017 16:45 EDT [facility] 01/17/2017 15:5 5 EDT 01/17/2017 15:55 EDT Toby Song MD HEMATOLOGY & PF4 OR DERABLES [facility] documented in this encounter Visit Diagnoses Not on filedocumented in this encounter Care Teams Data Processing Systems Project Planner Relationship Specialty Start Date End Date Unknown, Provider, PCP - General 07/29/10 08/22/22 documented as of this encounter
--- OUTSIDE RECORDS SUMMARY | 2024-04-04 16:48 | XMS_ITS | Encounter Summary ---
Author Organization [facility] Address [address] [place] [address] Care Team Providers Care Public Relations Supervisor Name Role Phone Unknown, Provider Primary Care Provider [phone] Encounter Details Date Type Department Care Team (Late st Contact Info) Description 02/03/2015 Results Only [facility] [phone] Tate Kinney, DO [address] [place] [address] Social History Tobacco Use Types [...] ? ELIAS PEREZ ? Accession #: ? [id number] ? : ? 1960 (Age: 54) ??M ? Collect Date: ? 02/03/2015 ? Location: ? [facility] ? Receive Date: ? 02/03/2015 ? Provider: TATE KINNEY DO Copy to: EMANUEL CHEW MD ? Final Pathologic Diagnosis: ANUS, SKIN TAG, EXCISION: - ??Fibroepithelial polyp (skin tag). - ??Negative for dysplasia. See comment. Comment: Computer System Specialist sections of this case were reviewed at [...] Duarte 02/04/2015 10:56 AM End of Report [facility] 02/03/2015 9:03 EDT 02/03/2015 9:03 EDT Tate Kinney DO PATHOLOGY ORDERABLES [facility] [address] [place] [address] documented in this encounter Visit Diagnoses Not on filedocumented in this encounter Care Teams Public Relations Supervisor Relationship Specialty Start Date End Date Unknown, Provider, PCP - General 07/29/10 08/22/22 documented as of this encounter
--- OUTSIDE RECORDS SUMMARY | 2024-04-04 16:48 | XMS_ITS | Encounter Summary ---
Author Organization [facility] Address [address] [place] [address] Care Team Providers Care Business Services Administrator Name Role Phone Unavailable Primary Care Provider Unavailabl e Encounter Details Date Type Department Care Team (Late st Contact Info) Description 02/10/2008 Before PRISM Converted Visit (Maple) [facility] Medicine [address] [address] [place] [address] [place] [phone] Social History Tobacco Use Types Packs/Day Years [...] ? ELIAS PEREZ ? Accession #: ? [id number] ? : ? 1960 (Age: 47) ??M [...] submitted intact as (A). ? Received in [employer]'s fixative labelled Gorge and 2 ??bx gastric [...] submitted intact as (C). ? Received in [employer]'s fixative labelled Perez and 4 ??bx terminal ileum is a 0.3 x 0.3 x 0.3 cm biopsy. ??The specimen is submitted intact as (D). ? Received in [employer]'s fixative labelled Gorge and 5 ??bx random colon are ? five biopsies which vary in size from 0.2 x 0.1 x 0.1 cm up to 0.6 x 0.2 x 0.1 ?? cm. ??The specimens are submitted intact as (E1) and (E2). ? Received in [employer]'s fixative labelled Perez and 6 ??bx random [...] MD PATHOLOGY ORDERABLES [facility] [address] [place] [address] documented in this encounter Visit Diagnoses Not on filedocumented in this encounter
--- OUTSIDE RECORDS SUMMARY | 2024-04-04 16:48 | XMS_ITS | Encounter Summary ---
Author Organization [facility] Address [facility] [place] [address] Care Team Providers Care Crm Marketing Manager Name Role Phone Sammy Thompson MD Primary Care Provider [phone] Encounter Details Date Type Department Care Team (Late st Contact Info) Description 04/07/2011 8:00 AM EDT - 04/07/2011 9:00 AM EDT [place] [id number] Elias Chapa MD [facility] [place] [address] CARDIAC CATHETERIZATION Social History Tobacco Use Types [...] Everywhere. * CARDIAC CATHETERIZATION: AFTER YOUR VISIT (MALAGASY) documented in this encounter Medications at Time [...] without c/o chest discomfort.R groin slightly sore. Order Caller here to see and discharge. Dc to home orders written. Dc info reviewed including meds. Plavix prescription arranged by joseph at [facility].Does not want to participate in outpatient cardiac rehab. Comfortable with dc ,discharged/ * Дмитрий North MSW - 04/08/2011 10:02 AM EDT Office of Care Management Social Work Health Information Internship Note Relevant Information: JOSEPH paged by [facility] Sat am, as pt is being dc'd on Plavix, says he has no $. I met w/pt, who says he has Cigna rx coverage, but cannot afford copay, as he is out of work and just filled all his other rx before coming to [facility]. Pt's is coming to pick him up today. Assessment: I noted [facility] can either cover cost of Cigna copay or the month's Plavix; Pt is expected to be on Plavix just 30 days, per Cardi. Plan: I asked pt to have rx card run by [facility], and I spoke with Pharmacy. [facility] [...] Phase 2 in 2003 s/p PCI in [facility] but would like to join again. RN will ambulate pt once he is off bedrest. See notes for activity details. Participation to the outpatient cardiac rehabilitation program at [facility] was discussed. A referral will be sent to the program and the patient will be contacted within 2 weeks. documented in this encounter H&P Notes * Elias Chapa MD - 04/07/2011 10:21 AM EDT Elias Pennington [id number] 04/07/2011 51 y.o. Admission History and Physical [...] ischemia. . Patient was therefore brought to [facility] for [facility] possible PCI. Catheterization revealed a long [...] 04/10/2011 10:03 AM EDTAssociated Order(s): SCAN DOC: SPECIAL SERVICES SUPERVISOR documented in this encounter Miscellaneous Notes * Miscellaneous - Provider, Scanning - 04/10/2011 9:52 AM EDT * Discharge Summary - Elias Chapa MD - 04/08/2011 8:31 AM EDT Physician Discharge Summary Patient ID: Elias Pennington [id number] y.o. 1960 Admit date: 04/07/2011 Discharge [...] ischemia. . Patient was therefore brought to [facility] for [facility] possible PCI. Catheterization revealed a long [...] 0.00 - 0.05 (x10(3)/mcL) Patient Instructions: Unchanged BUSINESS AND FINANCIAL COUNSEL meds that are or will be resumed [...] tablet by mouth daily. 30 tablet 0 BUSINESS AND FINANCIAL COUNSEL meds that are DCed or will be [...] (Dr. Thompson) in 1-2 weeks, and your Room Attendant(Dr. Peña) in 4-6 weeks. Please contact each [...] AM EDT Office [place] [address] Ananya Torres, NUTRITION INTERNSHIP Scheduled Orders Name Type Priority Associated Diagnoses [...] IMPLANTABLE DEVICES SCAN 04/10/2011 11:38 AM EDT SPECIAL SERVICES SUPERVISOR SCAN 04/10/2011 10:03 AM EDT BMP W/FASTING GLUCOSE Routine 04/08/2011 4:13 AM EDT DIFFERENTIAL, AUTOMATED Routine 04/08/20 11 4:13 AM EDT CARDIAC ENZYMES ([facility]) Routine 04/08/2011 4:13 AM EDT CBC (WITH DIFF) Routine 04/08/2011 4:13 AM EDT HEMOGLOBIN A1C Routine 04/08/2011 4:13 AM EDT LIPID PANEL (REFLEX DIRECT LDL) Routine 04/08/2011 4:13 AM EDT EKG 12-LEAD STAT 04/07/2011 7:09 PM EDT CAD (coronary artery disease) EKG 12-LEAD Routine 04/07/2011 10:38 AM EDT CAD (coronary artery disease) CARDIAC ENZYMES ([facility]) STAT 04/07/2011 10:02 AM EDT CARDIAC CATHETERIZATION [...] SCAN EXT O RDR/RSLT * SCAN DOC: SPECIAL SERVICES SUPERVISOR (04/10/2011 10:03 AM EDT) Anatomical Region Laterality [...] Basophil % 0.3 0.0 - 2.0 % [facility] Baso Absolute 0.0 0.0 - 0.2 x10(3)/[facility] Immature Gran % 0.20 0.00 - 0.66 % [facility] Comment: Immature granulocytes(IG's)percentage and absolute count will include metamyelocytes, myelocytes, and promyelocytes. Blood smears from CBCs yielding IG's will be scanned manually for concordance. If this scan disagrees with the automated IG or if promyelocytes are noted, a manual differential will be performed. Immature Gran Absolute 0.01 0.00 - 0.05 x10(3)/[facility] Blood specimen (specimen) 04/08/2011 4:13 AM EDT 04/08/2011 4:23 AM EDT Elias Chapa MD HEMATOLOGY ORDERABLE S [facility] * Hemoglobin A1c (04/08/2011 4:13 AM EDT) Hemoglobin A1c 5.7 4.3 - 6.1 % [facility] Estimated Average Glucose 117 mg/dL [facility] Comment: eAG equivalents for HbA1c percentages: HbA1c(%) [...] into estimated average glucose values. ??Diabetes Care 2008:31(8):6123-9216. Blood specimen (specimen) 04/08/2011 4:13 AM EDT 04/08/2011 4:23 AM EDT Elias Chapa MD CHEMISTRY ORDERABLES Performing Organization Address [facility] Co de Phone Number LYNNE MedaPhorJUSTIN * Cardiac Enzymes (04/08/2011 4:13 AM EDT) Troponin-T <0.03 <=0.03 ng/mL LYNNE InterhypDAYO Comment: 0.03 ng/mL: Represents the 99th percentile upper reference limit for normals. >0.03 ng/mL: Elevated cardiac troponin T level indicative of myocardial damage. Diagnosis of acute, evolving or recent VT requires a typical rise and gradual fall [...] consensus document of the Joint Society of Cardiology/[place] College of Cardiology Committee for the redefinition of myocardial infarction. Journal of the [place] College of Cardiology 2000; 36: 959-969] Creatine Kinase 76 0 - 200 unit/L LYNNE InterhypDAYO Blood specimen (specimen) 04/08/2011 4:13 AM EDT 04/08/2011 4:23 AM EDT Elias Chapa MD CHEMISTRY ORDERABLES Performing Organization Address [facility] Co de Phone Number LYNNE ROSENBAUM * CBC (with Diff) (04/08/2011 4:13 AM EDT) White Blood Cell 6.3 4.0 - 10.0 x10(3)/mcL [facility] Red Blood Cell 4.94 4.63 - 6.08 x10(6)/mcL CERNER MILLENNIUM Hemoglobin 14.1 13.7 - 17.5 gm/dL [facility]ILL[facility] Hematocrit 41.1 40.0 - 51.0 % CERNER MILLENNIUM Mean Cell Volume 83.2 79.0 - 92.0 fL CERNER MILLENNIUM Mean Cell Hemoglobin 28.5 25.6 - 32.2 pg CERNER MILLENNIUM Mean Cell Hemoglobin Concentration 34.3 32.0 - 36.5 gm/dL [facility]ILL[facility]UM Platelet 165 145 - 370 x10(3)/mcL CERNER MILLENNIUM RDW Standard Deviation 40.5 35.0 - 46.0 fL CERNER MILLENNIUM RDW coefficient of variation 13.4 10.9 - 14.4 % CERNER MILLENNIUM Mean Platelet Volume 9.7 9.0 - 12.0 fL [facility] MILLENNIUM Blood specimen (specimen) 04/08/2011 4:13 AM EDT 04/08/2011 4:23 AM EDT Elias Chapa MD HEMATOLOGY ORDERABLE S LYNNE ROSENBAUM * (ABNORMAL) Lipid panel (fasting) (04/08/2011 4:13 AM EDT) Cholesterol, Total 139 <=199 mg/dL [facility] Comment: Recommendations of the NCEP Adult Treatment Panel for the following risk cutoff thresholds for the [place] population: Desirable: <200 mg/dL Borderline High: 200-239 mg/dL High: > or = 240 mg/dL Triglyceride 114 <=149 mg/dL [facility] Comment: Reference Range: Normal triglycerides: ??<150 mg/dL Borderline high: ??150-199 mg/dL High: ??200-499 mg/dL Very high: ??>zl=278 mg/dL XIOMARA 2001; 285(19):2410-1025 HDL Cholesterol 36(L) >=40 mg/dL [facility] Comment: Reference range: ??Low HDL: ?? < 40 mg/dL ??Normal: ?40-60 mg/dL ??Desirable: > 60 mg/dL XIOMARA 2001; 285(19):6733-7169 LDL Cholesterol 80 <=99 mg/dL [facility] Comment: Reference range: ?? Optimal: ?<100 mg/dL ?? Near Optimal/Above Optimal: ?? 100-129 mg/dL ?? Borderline high: ?130-159 mg/dL ?? High: ? 160-189 mg/dL ?? Very high: ?>la=598 mg/dL XIOMARA 2001: 285(19):0615-1965 Cholesterol/HDL Ratio 3.9 ratio [facility] Comment: A Cholesterol to HDL ratio below 4:1 is desirable. ??Studies suggest that increased CAD risk occurs at ratios above 5 for females and above 6 for men. ? [place] Heart Association ??(http://www.americanheart.org) ? Bev Int Med, 1994; 121:641 ? AM J Med, 1998; 105(1A):48S Blood specimen (specimen) 04/08/2011 4:13 AM EDT 04/08/2011 4:23 AM EDT Elias Chapa MD CHEMISTRY ORDERABLES [facility] * (ABNORMAL) BMP w/fasting Glucose (04/08/2011 4:13 AM EDT) Glucose Fasting 107(H) 65 - 99 mg/dL [facility] Comment: ?Fasting* Glucose Interpretive Criteria Normal ?65-99 [...] of Diabetes Mellitus, Position Statement from the [place] Diabetes Association. ??Diabetes Care, Volume 33, Supplement [...] Chapa MD CHEMISTRY ORDERABLES Performing Organization Address [facility] de Phone Number LYNNE [facility] * EKG 12 Lead (04/07/2011 7:09 PM EDT) Ventricular rate 63 BPM MUSE SYSTEM Atrial Rate 63 BPM MUSE SYSTEM P-R Interval 194 ms MUSE SYSTEM QRS Duration 88 ms MUSE SYSTEM Q-T Interval 398 ms MUSE SYSTEM QTC Calculated (Bezet) 407 ms MUSE SYSTEM Calculated P [place] 31 degrees MUSE SYSTEM Calculated R [place] 0 degrees MUSE SYSTEM Calculated T [place] 7 degrees MUSE SYSTEM INTERPRETATION Normal sinus rhythm Normal ECG When compared with ECG of 07-APR-2011 10:38, No significant change was found Confirmed by MD Celia, Mariano ([id number]) on 04/08/2011 7:23:03 AM MUSE SYSTEM 04/07/2011 7:09 PM EDT 04/08/2011 7:23 AM EDT Elias Chapa MD ECG ORDERABLES Performing Organization Address [facility] Co de Phone Number MUSE SYSTEM * EKG 12 Lead (04/07/2011 10:38 AM EDT) Ventricular rate 63 BPM MUSE SYSTEM Atrial Rate 63 BPM MUSE SYSTEM P-R Interval 178 ms MUSE SYSTEM QRS Duration 88 ms MUSE SYSTEM Q-T Interval 398 ms MUSE SYSTEM QTC Calculated (Bezet) 407 ms MUSE SYSTEM Calculated P [place] 50 degrees MUSE SYSTEM Calculated R [place] 6 degrees MUSE SYSTEM Calculated T [place] 28 degrees MUSE SYSTEM INTERPRETATION Normal sinus rhythm Normal ECG When compared with ECG of 21-APR-2005 15:41, No significant change was found Confirmed by MD Teresa, Harish ([id number]) on 04/07/2011 11:48:22 AM MUSE SYSTEM 04/07/2011 10:3 8 AM EDT 04/07/2011 11:48 AM EDT Elias Chapa MD ECG ORDERABLES MUSE SYSTEM * Cardiac Enzymes (04/07/2011 10:02 AM EDT) Troponin-T <0.03 <=0.03 ng/mL [employer] Comment: 0.03 ng/mL: Represents the 99th percentile upper reference limit for normals. >0.03 ng/mL: Elevated cardiac troponin T level indicative of myocardial damage. Diagnosis of acute, evolving or recent VT requires a typical rise and gradual fall [...] consensus document of the Joint Society of Cardiology/[place] College of Cardiology Committee for the redefinition of myocardial infarction. Journal of the [place] College of Cardiology 2000; 36: 959-969] Creatine Kinase 62 0 - 200 unit/L [facility] [employer] Blood specimen (specimen) 04/07/2011 10:02 AM EDT 04/07/2011 10:25 AM EDT Elias Chapa MD CHEMISTRY ORDERABLES [employer]YNNE [employer] documented in this encounter Visit Diagnoses Not on filedocumented in this encounter Administered Medications Inactive Administered Medications - up to 3 most recent administrations Medication Order MAR Action Action Date Dose Rate Site acetaminophen (TYLENOL) tablet 650 mg 650 mg, Oral, EVERY 6 HOURS PRN, Starting on Sun04/07/11 at 1234, Until Sun04/08/11 at 1422, Pain, Mild Pain, Maximum dose [...] at 1056, Until Sun04/07/11 at 1100, YAMILET MAYNARD: Cabinet Override amlodipine (NORVASC) tablet 10 mg [...] in sodium chloride 0.9% 50 mL infusion (WIRE SPRING RELAY ADJUSTER) CONTINUOUS PRN, Starting on Sun04/07/11 at 0942, [...] francisco Roman RN)1045 (Stopped - Provider: Yamilet Maynard RN) sodium chloride 0.9% infusion () 100 mL/hr, Intravenous, CONTINUOUS, Starting on Sun04/07/11 at 1100, Until Sun04/07/11 at 2059 1045 (New Bag - Provider: Ludmila Maynard RN - Comment: post cath fluid)1800 (Stopped - Provider: Tk Novoa, RONALDO) PRN Medication Order 04/06/2011 04/07/2011 04/08/2011 acetaminophen [...] 1058, Until Sun04/08/11 at 1422, Heartburn, Routine 1100 (Given - Provider: Yamilet Maynard RN - Comment: given per order Ringwala for throat/chest discomfort)2021 (Given - Provider: Veronica Allen RN) bivalirudin (ANGIOMAX) 250 mg in sodium chloride 0.9% 50 mL infusion (WIRE SPRING RELAY ADJUSTER) (CANCELED) CONTINUOUS PRN, Starting on Sun04/07/11 at [...] Sun04/07/11 at 0912, Pain, Intra-Operative (Intra-Procedure), Routine 0912 (Given - Provider: Jackson Andrade Jr.) fentaNYL [...] Jr.) documented in this encounter Care Teams Crm Marketing Manager Relationship Specialty Start Date End Date Sammy Thompson MD PCP - General 06/14/10 10/19/14 documented as of this encounter
--- OUTSIDE RECORDS SUMMARY | 2024-04-04 16:48 | XMS_ITS | Encounter Summary ---
Author Organization [facility] Address [address] [place] [address] Care Team Providers Care Energy Trader Name Role Phone Андрей Coello MD Primary Care Provider [phone] Encounter Details Date Type Department Care Team (Late st Contact Info) Description 09/18/2022 Lab Requisition [facility] Pathology & Laboratory Medicine - [facility] [address] [place] [address] Jim Mccall MD [address] [place] [address], [address] [place] [address] Encounter for screening for malignant [...] explore management options, if applicable. 09/22/2022 7:46 [facility] Final Diagnosis A. RECTUM, BIOPSY: - Hyperplastic polyp B. CECUM, BIOPSY: - Tubular adenoma 09/22/2022 7:46 [facility] Attestation By the signature below, the attending physician certifies that they have 1) personally conducted a gross and/or microscopic examination of the described specimen(s), and/or personally interpreted the results of laboratory testing of the described specimen(s), and 2) personally rendered or confirmed the above diagnosis. 09/22/2022 7:46 [facility] at 0746 Clinical History Screening; clinical diagnosis code: Z12.11 09/22/2022 7:46 [facility] Gross Description A. Received [...] B1. RIAN ROLLINS(ASCP) 09/19/2022 7:28 09/22/2022 7:46 [facility] Performing Lab [facility] 09/22/2022 7:46 [facility] Scanned Images 09/22/2022 7:46 [facility] Tissue ENTIRE COLON / Unknown 09/18/2022 7:36 EST 09/18/2022 18:13 EST Tissue specimen (specimen) COLON STRUCTURE / Unknown 09/18/2022 7:36 EST 09/18/2022 18:13 EST Jim Mccall MD PATHOLOGY ORDERABLES [facility] [address] [place] [address] documented in this encounter Visit Diagnoses Diagnosis Encounter for screening for malignant neoplasm of colon Special screening for malignant neoplasms, colon documented in this encounter Care Teams Energy Trader Relationship Specialty Start Date End Date Андрей Coello MD [address] [place] [address] PCP - General 08/23/22 documented as of this encounter
--- OUTSIDE RECORDS SUMMARY | 2024-04-04 16:48 | XMS_ITS | Clinical Summary ---
Author Organization [facility] Address [address] [place] [address] Care Team Providers Care Manager Biologics Name Role Phone Андрей Coello MD Primary Care Provider [phone] Social History Tobacco Use Types Packs/Day Years [...] 60+ series) 2021 COVID-19 Vaccine (2022-24 season) 2024 Care Teams Manager Biologics Relationship Specialty Start Date End Date Андрей Coello MD [address] [place] [address] PCP - General 08/23/22
--- OUTSIDE RECORDS SUMMARY | 2024-04-04 16:48 | XMS_ITS | Encounter Summary ---
Author Organization [facility] Address [facility] [place] [address] Care Team Providers Care Concrete Vibrator Operator Name Role Phone Андрей Espinoza MD Primary Care Provider [phone] Encounter Details Date Type Department Care Team (Late st Contact Info) Description 03/31/2011 Orders Only Cardiology at [address] [address] Emily Mi PA [facility] [place] [address] Social History Tobacco Use Types Packs/Day Years [...] AM EDT Office [place] [address] Ananya Torres, MEMS DEVICE SCIENTIST documented as of this encounter Procedures Procedure Name Priority Date/Time Associated Diagnosis Comments CARDIAC CATHETERIZATION Routine 04/07/20 11 12:16 PM EDT documented in this encounter Results * Cardiac Catheterization (04/07/2011 12:16 PM EDT) Anatomical Region Laterality Modality Other Narrative 04/07/2011 12:16 PM EDT A scan was deleted from the Results section by Pankaj Velázquez [[id number]] on 04/03/2011 at ??4:06 PM (File: [id number]) Андрей Wilson MD CARDIAC CATH ORDERAB LES documented in this encounter Visit Diagnoses Not on filedocumented in this encounter Care Teams Concrete Vibrator Operator Relationship Specialty Start Date End Date Андрей Espinoza MD PCP - General 06/14/10 10/19/14 documented as of this encounter
--- OUTSIDE RECORDS SUMMARY | 2024-04-04 16:48 | XMS_ITS | Encounter Summary ---
Author Organization [facility] Address [address] [place] [address] Care Team Providers Care Railroad Wheels And Axles Inspector Name Role Phone Unavailable Primary Care Provider Unavailabl e Encounter Details Date Type Department Care Team (Late st Contact Info) Description 07/27/2010 Results Only [facility] Laboratory Services - [facility] ([facility]) [address] [place], [place] [id number] [place] [address] [place] [id number] Social History Tobacco Use Types Packs/Day Years [...] ? IBD? Gross Description: ? Received in Telematikailyn's fixative labelled Elias Pennington and elliot terminal ? ileum are three biopsies which vary in size from 0.2 x 0.1 x 0.1 cm up to 0.5 x 0.3 x 0.3 cm. ??The specimens are submitted intact as (A). ? Received in Telematikailyn's fixative labelled Elias Pennington and bx random Rt colon, incl ascending and transverse are eight biopsies which vary in size from 0.2 x 0.2 x 0.2 cm up to 0.6 x 0.2 x 0.1 cm. ??The specimens are submitted intact as ?? (B1)-(B3). ? Received in LeadiD's fixative labelled Elias Pennington and bx random Lt colon, incl descending and sigmoid are 12 biopsies which vary in size from 0.3 x 0.2 x 0.2 cm up to 0.4 x 0.4 x 0.2 cm. ??The specimens are submitted intact as ? (C1)-(C4). ? Received in [email or web address]'s fixative labelled Chris Elias and bx random [...] Lion MD PATHOLOGY ORDERABLES [facility] [address] [place] [address] documented in this encounter Visit Diagnoses Not on filedocumented in this encounter
--- OUTSIDE RECORDS SUMMARY | 2024-04-04 16:48 | XMS_ITS | Encounter Summary ---
Author Organization [facility] Address [address] [place] [address] Care Team Providers Care Grip Boss Name Role Phone Unknown, Provider Primary Care Provider Encounter Details Date Type Department Care Team (Latest Contact Info) Description 02/03/2015 10:12 EDT - 02/03/2015 23:59 EDT Hospital Encounter [address] [address] Unknown, Provider, Discharge Disposition: Home or Self [...] on filedocumented in this encounter Care Teams Grip Boss Relationship Specialty Start Date End Date Unknown, Provider, PCP - General 07/29/10 08/22/22 documented as of this encounter
--- NOTE | 2024-04-04 16:50 | ED.GENADUL_ITS ---
Discharge Plan Disposition Patient Disposition: Home Condition: Stable Discharge Details Clinical Impression: Penile bleeding, Post-operative pain Primary Care Provider: Dandy Hodges ED Provider: Paco Faust Home Meds and New Rx's Prescriptions: Continued metoprolol tartrate 50 mg tablet 50 mg PO BID Patient Comments: 02/14/21 from PCP list who writes for this medication. RH cyclobenzaprine 10 mg tablet 10 mg PO TID PRN Jardiance 25 mg tablet 25 mg PO DAILY aspirin [Adult Low Dose Aspirin] 81 mg tablet,delayed release (DR/EC) 81 mg PO DAILY paroxetine HCl 30 mg tablet 30 mg PO DAILY triamcinolone acetonide 0.1 % cream 1 applic TP BID PRN ketoconazole 2 % cream 1 applic TP BID PRN nitroglycerin [Nitrostat] 0.4 mg tablet, sublingual 0.4 mg Sublingual PRN PRN (Reason: chest pain) Qty: 10 12RF furosemide 20 mg tablet 20 mg PO DAILY Qty: 90 3RF Trulicity 0.75 mg/0.5 mL pen injector 1.5 mg subcut QWEEK atorvastatin 80 mg tablet 40 mg PO DAILY fluocinonide-emollient [Fluocinonide-E] 60 GM cream 60 g Topical PRN PRNQty: 1 Rx Instructions: use on hands but not elsewhere.HE levothyroxine 25 MCG tablet 25 mcg PO DAILY losartan 25 mg tablet 25 mg PO DAILY Qty: 90 3RF metformin 500 MG tablet extended release 24 hr 1,000 mg PO BID acetaminophen [Tylenol Extra Strength] 500 mg Tablet 500 mg PO Q8H PRN PRN tamsulosin [Flomax] 0.4 mg Capsule 0.4 mg PO DAILY cholecalciferol (vitamin D3) [Vitamin D3] 1,000 unit Capsule 1,000 unit PO DAILY Discharge Instructions Instructions: Mupirocin, Oxycodone, Managing pain after surgery, Opioids for Short-Term Treatment of Pain ED Additional Instructions: You were seen in the emergency department for your postoperative minor penile bleeding, you may have pulled on sutures but they are not out of place, there is no active bleeding I do not think there is a concern at this time for severe infection, your scrotal swelling is expected and will resolve with time and elevation. For the mild yellow film that you have reported I am giving you topical mupirocin to apply to the area generously 3 times per day. I have sent you home with 4 tablets of oxycodone for postoperative pain. Please follow-up with urology for further management of this condition, please return to the emergency department for severe increase in pain, redness, fever, nausea or weakness, chills or sweating. Referrals: [facility] [Provider Group] Dandy Hodges [Primary Care Provider] - HPI General Date/Time Provider Initiated Documentation: 04/04/24 16:49 . HPI Narrative: 64 year-old male presents to ED today by POV/ambulating with a chief complaint of testicular pain & swelling, some penile bleeding after a recent h ydrocelectomy and frenulectomy by Dr. Aguilar on 03/31 with onset of bleeding while laying on the couch today and icing his scrotal swelling. Quality described as some scant bleeding enough to partially saturate two napkins, no radiation to active bleeding, patient endorses continued pain and scrotal swelling, due to body habitus having difficulty elevating that part of his anatomy, no severe increasing scrotal pain or redness spreading outward from the area, endorses a mild yellow biofilm like area developing around the glans. Severity is described as moderate to severe. Palliating factors include has been taking Tylenol only for pain. Provoking factors include patient states he did not think he caught any stitches on anything. Patient not anticoagulated. Related Data Home Medications ?Medication ?Instructions ?Recorded ?Confirmed fluocinonide-emollient 0.05 % 60 g topical PRN PRN ##1 05/21/13 04/04/24 topical cream (Fluocinonide-E) metformin 500 mg tablet,extended 1,000 mg PO BID 05/20/14 04/04/24 release 24 hr levothyroxine 25 mcg tablet 25 mcg PO DAILY 02/25/15 04/04/24 acetaminophen 500 mg tablet 500 mg PO Q8H PRN PRN 06/16/18 04/04/24 (Tylenol Extra Strength) cholecalciferol (vitamin D3) 25 1,000 unit PO DAILY 06/16/18 04/04/24 mcg (1,000 unit) capsule (Vitamin D3) tamsulosin 0.4 mg capsule (Flomax) 0.4 mg PO DAILY 06/16/18 04/04/24 aspirin 81 mg tablet,delayed 81 mg PO DAILY 05/08/19 04/04/24 release (Adult Low Dose Aspirin) empagliflozin 25 mg tablet 25 mg PO DAILY 05/08/19 04/04/24 (Jardiance) ketoconazole 2 % topical cream 1 applic topical BID PRN 05/08/19 04/04/24 paroxetine HCl 30 mg tablet 30 mg PO DAILY 05/08/19 04/04/24 triamcinolone acetonide 0.1 % 1 applic topical BID PRN 05/08/19 04/04/24 topical cream nitroglycerin 0.4 mg sublingual 0.4 mg sublingual PRN PRN chest 10/12/20 04/04/24 tablet (Nitrostat) pain #10 tabs furosemide 20 mg tablet 20 mg PO DAILY #90 tabs 11/16/20 04/04/24 dulaglutide 0.75 mg/0.5 mL 1.5 mg subcut QWEEK 02/14/21 04/04/24 subcutaneous pen injector (Trulicity) metoprolol tartrate 50 mg tablet 50 mg PO BID 02/14/21 04/04/24 atorvastatin 80 mg tablet 40 mg PO DAILY 03/06/23 04/04/24 losartan 25 mg tablet 25 mg PO DAILY #90 tabs 08/06/23 04/04/24 cyclobenzaprine 10 mg tablet 10 mg PO TID PRN 03/10/24 04/04/24 Previous Rx's ?Medication ?Instructions ?Recorded nitroglycerin 0.4 mg sublingual 0.4 mg sublingual PRN PRN chest 10/12/20 tablet (Nitrostat) pain #10 tabs furosemide 20 mg tablet 20 mg PO DAILY #90 tabs 11/16/20 losartan 25 mg tablet 25 mg PO DAILY #90 tabs 08/06/23 Allergies Allergy/AdvReac Type Severity Reaction Status Date / Time NIGEL Inhibitors AdvReac Cough Verified 04/04/24 16:38 codeine AdvReac Nausea Verified 04/04/24 16:38 gabapentin AdvReac vision Verified 04/04/24 16:38 trouble, dizzy,nausea lisinopril AdvReac cough Verified 04/04/24 16:38 General Stated Complaint: Male Reproductive Problem TIFFANI: 3 Review of Systems All systems reviewed & are unremarkable except as noted in HPI and below Exam Narrative Exam Narrative: GENERAL APPEARANCE: Obesity at baseline, non-toxic, awake and alert, atraumatic, no acute distress. SKIN: Warm, pink, dry, intact, without rashes/lesions/ulcerations. HEAD: Normocephalic, atraumatic, normal hair distribution for gender/age. EYES: Normal conjunctiva, no exudates on lids/lashes. ENT: Nares patent, no circumoral cyanosis, no facial swelling NECK: Supple, trachea midline, painless cervical ROM. LUNGS/CHEST: Non-labored respirations, normal A/P diameter, symmetrical expansion, no chest wall deformity HEART (CV/PV): No peripheral edema, no JVD. ABDOMEN: Soft, non-distended, no guarding, no abdominal tenderness. : Diffuse ecchymosis to the scrotum with mild swelling, no subcutaneous emphysema, sutures to the left scrotum appear intact, the sutures below the glans of the penis. You have strained and pulled off partially healed scab which is likely source of bleeding, no ruptured sutures or wound dehiscence, m ild erythema to glans, superficial fungal infection inguinal he MSK: Normal ROM, no swelling/deformity to bilateral UEs or LEs, moving all extremities without weakness, no cyanosis, spine midline without tenderness, normal curvature. NEURO: Mental Status AAOx4 - alert to person, place, time, events No facial droop, no forehead involvement. Motor: No focal weakness - strength 5/5 in bilateral UEs and LEs, proximal and distal, symmetric. Sensory: sensation intact to light touch globally. Gait normal: patient ambulated without ataxia into ED room. PSYCH: euthymic, cooperative, pleasant, appropriate speech Course Vital Signs Vital signs: Vital Signs Temperature 37.0 C 04/04/24 16:35 Pulse 67 04/04/24 16:35 Respiratory Rate 12 04/04/24 16:35 Blood Pressure 129/81 04/04/24 16:35 Pulse Oximetry 95 04/04/24 16:35 Temperature 37.0 C 04/04/24 16:35 Temperature Source Oral 04/04/24 16:35 Pulse 67 04/04/24 16:35 Respiratory Rate 12 04/04/24 16:35 Blood Pressure 129/81 04/04/24 16:35 Blood Pressure Position Sitting 04/04/24 16:35 Pulse Oximetry 95 04/04/24 16:35 Oxygen Delivery Method Room Air 04/04/24 16:35 Oxygen Flow Rate 0 04/04/24 16:35 Pain Level 6 04/04/24 16:35 Medical Decision Making This dictation utilizes [id number] dictation software and may contain unedited grammatical errors. 64 year-old male presents to ED today by POV/ambulating with a chief complaint of testicular pain & swelling, some penile bleeding after a recent hydrocelectomy and frenulectomy by Dr. Aguilar on 03/31 with onset of bleeding while laying on the couch today and icing his scrotal swelling. Quality described as some scant bleeding enough to partially saturate two napkins, no radiation to active bleeding, patient endorses continued pain and scrotal swelling, due to body habitus having difficulty elevating that part of his anatomy, no severe increasing scrotal pain or redness spreading outward from the area, endorses a mild yellow biofilm like area developing around the glans. Severity is described as moderate to severe. Palliating factors include has been taking Tylenol only for pain. Provoking factors include patient states he did not think he caught any stitches on anything. Patients' medical history: T2DM, diabetic peripheral neuropathy, left hydrocele, CAD, diverticulitis, hypertension, hyperlipidemia, obesity. Family and social history: Noncontributory. Pertinent exam findings / vital signs include diffuse scrotal swelling with intact sutures to the left scrotum, ecchymosis of varying stages of healing, the frenulectomy area on the underside of the glans of the penis shows that the sutures have been pulled or strained but not ruptured, there is a possibility of a small piece of scab that came apart and came loose, there is no active bleeding, there is diffuse mild redness to the glans without red streaking, no subcutaneous emphysema to the scrotum or groin area, nontoxic vitals, afebrile. Differential / pathologies of concern include partial suture tear, minor bleeding postoperatively, postoperative pain, unlikely Ramsey's gangrene. Diagnostic studies of: -None. Interventions of: -Consulted Dr. Aguilar of urology, reassured by exam of no signs of impending Ramsey's gangrene, the patient can follow-up outpatient, I did discuss the yellow developing biofilm and we both agreed that mupirocin would be a good plan for this. ED Course/Assessment/Plan: 64-year-old male presents with continued scrotal swelling after left hydrocelectomy and frenulectomy of the glans of the penis for cosmetic purposes, had some minor bleeding at home this afternoon while icing and elevating his scrotum on the couch-I do not suspect any continued or serious bleeding, it appears his sutures had some strain on them but are not ruptured, there was a scab that may have pulled off an area of the wound that was healing, provided mupirocin with directions to apply topically, discussed with urologist Dr. Aguilar who does not recommend oral antibiotics at this time, he can follow-up with the patient in clinic, strict return criteria for developing signs of infection and systemic illness. Findings not consistent with Ramsey's gangrene, wound dehiscence, sepsis, fever, testicular torsion. Disposition of post-operative pain, penile bleeding. Patient verbalized understanding of the plan and return to ED criteria and engaged in shared decision making. Medical Records Medical records reviewed: Yes I reviewed the patient's medical records. Quality:SDOH Health Related Social Needs: No Data to Display PFSH All Active Problems (Updated 04/04/24 @ 17:17 by RIAN Andrew) Post-operative pain (Acute) Penile bleeding (Acute) Left hydrocele (Acute) Tubular adenoma of colon (Acute ~09/18/22) ASCVD (arteriosclerotic cardiovascular disease) (Acute) Loose stools (Acute) Enlarged liver (Acute) Coronary artery calcification seen on CAT scan (Acute) Hypothyroid (Chronic) Diverticulitis (Chronic) Rectal/anal hemorrhage (Acute) Intention tremor (Acute 01/08/13) Candidal intertrigo (Acute) Tinnitus (Acute) Sensorineural hearing loss of both ears (Acute) Chest pain (Acute) Left rotator cuff tear (Acute) Biceps tendinitis of left shoulder (Acute) Bursitis of left shoulder (Acute) DJD of left AC (acromioclavicular) joint (Acute) Left carpal tunnel syndrome (Acute) Screening for colon cancer (Acute) Left shoulder pain (Acute) Elevated bilirubin (Acute) Lung nodule (Acute) Trochanteric bursitis of both hips (Acute) Hearing loss in right ear (Acute) Lateral epicondylitis (Acute) Memory impairment (Acute) Dyspepsia (Acute) Angina pectoris (Chronic) Adhesive capsulitis of left shoulder (Acute) Lumbar spinal stenosis (Acute) Subclinical hypothyroidism (Acute) Anxiety (Chronic) Depression (Chronic) Vitamin deficiency (Acute) Medical History (Updated 04/04/24 @ 17:17 by RIAN Andrew) Lower urinary tract symptoms Hx of type 2 diabetes mellitus Diabetic peripheral neuropathy Chronic back pain Spinal stenosis Surgical History History of colonoscopy with polypectomy (~09/18/22) Hx of knee surgery right Coronary Stent x3 Colonoscopy - MAC Family History Father Heart disease Social History Smoking/Tobacco Use Status: Former Tobacco Use Quit Date: 07/23/97 Tobacco: How many years used: 29 Smoking risk assessment performed?: Yes Alcohol Intake: former Year quit: 1997 Drug use: Daily Substance use type: marijuana Details: Last use 03/29/24 Housing: apartment Current gender identity: male What type of physical activity do you participate in: walking Duration: < 15 minutes/day Frequency: 3-4 times per week Do you feel safe at home: Yes Do you feel safe in your relationship?: Yes
[2024-04-04] MEDS: Mupirocin 2% Oint. 22 GM TUBE TP (17:29)
== END 2024-04-04 17:27 | disposition home or self-care (01) ==
PROVIDERS: Emergency Provider Physician Assistant; PCP Student in an Organized Health Care Education/Training Program
DX: N99.820 Postprocedural hemorrhage of a genitourinary system organ or structure following a genitourinary system procedure (principal); E11.40 Type 2 diabetes mellitus with diabetic neuropathy, unspecified; Z95.5 Presence of coronary angioplasty implant and graft; Z87.891 Personal history of nicotine dependence
CPT/HCPCS: 99283

== ENCOUNTER → 2024-04-29 07:52 | Outpatient (BNVA) | payer MEDICARE, SELFPAY | PROVIDERS: PCP Student in an Organized Health Care Education/Training Program; Referring Provider Student in an Organized Health Care Education/Training Program; Visit Provider Nurse Practitioner Gerontology | DX: Z48.816 Encounter for surgical aftercare following surgery on the genitourinary system (principal); N52.9 Male erectile dysfunction, unspecified; B37.42 Candidal balanitis ==

== ENCOUNTER → 2024-05-26 07:51 | Outpatient (BNVA) | payer MEDICARE, SELFPAY | PROVIDERS: PCP Student in an Organized Health Care Education/Training Program; Visit Provider Nurse Practitioner Gerontology | DX: Z48.816 Encounter for surgical aftercare following surgery on the genitourinary system (principal); N52.9 Male erectile dysfunction, unspecified; B37.42 Candidal balanitis ==

== ENCOUNTER 2024-07-25 10:24 | Outpatient (REF) | payer MEDICARE, SELFPAY ==
--- OUTSIDE RECORDS SUMMARY | 2024-07-25 10:26 | XMS_ITS | Encounter Summary ---
Author Organization [facility] [place] [address] Care Team Providers Care Ticket Clerk Name Role Phone Dandy Hodges Primary Care Provider + Encounter Details Date Type Department Care Team (Late st Contact Info) Description 05/07/2024 Telephone [place] [phone] Lorena Harp Social History Tobacco Use Types Packs/Day Years [...] on filedocumented in this encounter Care Teams Ticket Clerk Relationship Specialty Start Date End Date Dandy [place] [address] [address] [place] [address] PCP - General Internal Medicine 03/11/24 documented as of this encounter
--- OUTSIDE RECORDS SUMMARY | 2024-07-25 10:26 | XMS_ITS | Encounter Summary ---
Author Organization [facility] [place] [address] Care Team Providers Care Landing Gear Mechanic Name Role Phone Dandy Hodges Primary Care Provider + Encounter Details Date Type Department Care Team (Late st Contact Info) Description 05/13/2024 [place] [phone] Lorena Harp Social History Tobacco Use Types [...] on filedocumented in this encounter Care Teams Landing Gear Mechanic Relationship Specialty Start Date End Date Dandy Hodges [place] [address] [place] [address] PCP - General Internal Medicine 03/11/24 documented as of this encounter
--- OUTSIDE RECORDS SUMMARY | 2024-07-25 10:26 | XMS_ITS | Encounter Summary ---
Author Organization [facility] Address [facility] [place] [address] Care Team Providers Care Machinery Mechanic Name Role Phone Андрей Coello MD Primary Care Provider [phone] Encounter Details Date Type Department Care Team (Late st Contact Info) Description 06/18/2023 Ancillary Procedure Radiology Library at [facility] [place] [phone] Андрей Coello MD [address] [place] [address] [phone] Social History Tobacco Use Types Packs/Day Years [...] Coello MD IMG FILM LIBRARY ORD ERABLES [facility] [place] documented in this encounter Visit Diagnoses Not on filedocumented in this encounter Care Teams Machinery Mechanic Relationship Specialty Start Date End Date Андрей Coello MD PCP - General 12/05/16 03/10/24 documented as of this encounter
--- OUTSIDE RECORDS SUMMARY | 2024-07-25 10:26 | XMS_ITS | Encounter Summary ---
Author Organization Replaced By [facility] Address [facility] [place] [address] Care Team Providers Care Iron Worker Apprentice Name Role Phone Dandy Hodges Primary Care Provider + Encounter Details Date Type Department Care Team (Late st Contact Info) Description 03/25/2024 Orders [place] [address] Ronnie Jamil MD [facility] [place] [address] TIA (transient ischemic attack); Aphasia Social History Tobacco Use Types Packs/Day Years Used Date Smoking Tobacco: Former Cigarettes Q uit: 10/09/2010 Smokeless Tobacco: Never Sex and Gender Information Value Date Recorded Sex Assigned at Not on file Gender Identity Not on file Sexual Orientation Not on file documented as of this encounter Plan of Treatment Not on file documented as of this encounter Results * EEG (03/26/2024 3:26 PM EDT) Narrative Gio Ruiz MD - 03/26/2024 3:26 PM EDT Gio Ruiz MD ? 03/27/2024 ??3:42 PM [facility] Department of Neurology Outpatient Routine [...] channel digitized electroencephalogram was performed in the [facility] Clinical Neurophysiology Laboratory. The 10/20 international system of electrode placement was used and bipolar and referential electrode montages were recorded. ??In addition to EEG the patient was monitored for EKG and lateral/vertical eye movements. Video was recorded during the session. CLAIM PROFESSIONAL'S REPORT: Performed by: LEE Lacey Patient was [...] Aphasia documented in this encounter Care Teams Iron Worker Apprentice Relationship Specialty Start Date End Date Dandy Hodges PA [address] [place] [address] PCP - General Internal Medicine 03/11/24 documented as of this encounter
--- OUTSIDE RECORDS SUMMARY | 2024-07-25 10:26 | XMS_ITS | Encounter Summary ---
Author Organization [facility] Address [facility] [place] [address] Care Team Providers Care As400 Analyst Name Role Phone Dandy Hodges Primary Care Provider + Reason for Visit * Reason Onset Date Comments Appointment 03/27/2024 Encounter Details Date Type Department Care Team ([facility] st Contact Info) Description 03/27/2024 [place] [phone] Ronnie Jamil MD [facility] [place] [address] Appointment Social History Tobacco Use Types Packs/Day [...] on filedocumented in this encounter Care Teams As400 Analyst Relationship Specialty Start Date End Date Dandy Hodges PA [address] [place] [address] PCP - General Internal Medicine 03/11/24 documented as of this encounter
--- OUTSIDE RECORDS SUMMARY | 2024-07-25 10:26 | XMS_ITS | Encounter Summary ---
Author Organization [facility] Address [facility] [place] [address] Care Team Providers Care Community Health Specialist Name Role Phone Андрей Coello MD Primary Care Provider [phone] Encounter Details Date Type Department Care Team (Late st Contact Info) Description 10/03/2023 Ancillary Procedure Radiology Library at [facility] [place] [phone] Андрей Coello MD [address] [place] [address] [phone] Social History Tobacco Use Types Packs/Day Years [...] Ultrasound Study (10/03/2023 12:00 AM EDT) Narrative [facility] - 12/03/2023 4:32 PM EDT This exam is auto-finalizing. It's purpose is for storage only. Андрей Coello MD IMG FILM LIBRARY ORD ERABLES [facility] [place] documented in this encounter Visit Diagnoses Not on filedocumented in this encounter Care Teams Community Health Specialist Relationship Specialty Start Date End Date Андрей Coello MD PCP - General 12/05/16 03/10/24 documented as of this encounter
--- OUTSIDE RECORDS SUMMARY | 2024-07-25 10:26 | XMS_ITS | Encounter Summary ---
Author Organization [facility] Address [facility] [place] [address] Care Team Providers Care Small Parts Assembler Name Role Phone Андрей Coello MD Primary Care Provider [phone] Encounter Details Date Type Department Care Team (Late st Contact Info) Description 10/03/2023 12:10 AM EDT Ancillary Procedure Radiology Library at [facility] [place] [phone] Андрей Coello MD [address] [place] [phone] Social History Tobacco Use Types Packs/Day Years [...] CT Chest (10/03/2023 12:10 AM EDT) Narrative [facility] - 12/03/2023 4:32 PM EDT This exam is auto-finalizing. It's purpose is for storage only. Андрей Coello MD G FILM LIBRARY ORD ERABLES [facility] [place] documented in this encounter Visit Diagnoses Not on filedocumented in this encounter Care Teams Small Parts Assembler Relationship Specialty Start Date End Date Андрей Coello MD PCP - General 12/05/16 03/10/24 documented as of this encounter
--- OUTSIDE RECORDS SUMMARY | 2024-07-25 10:26 | XMS_ITS | Encounter Summary ---
Author Organization [facility] [place] [address] Care Team Providers Care Flower Arranger Name Role Phone Андрей Coello MD Primary Care Provider [phone] Reason for Referral * Consultation (Routine) - Closed Specialty Diagnoses / Procedures Referred By Chin helm Referred To Contact Neurology Diagnoses Expressive language disorder ? TIAАндрей Guerra MD [address] [place] [address] [place] [address] [facility] [address] [place] [phone] Referral ID Status Reason Start Date Expiration Date V isits Requested Visits Authorized [id number] Closed Consult, Test & Treat 07/05/2023 07/04/2024 1 1 Encounter Details Date Type Department Care Team (Late st Contact Info) Description 07/05/2023 Transcribe Orders eD Incoming Referrals [phone] Андрей Coello MD [address] [place] [address] [address] [place], [place] [phone] Expressive language disorder Social History Tobacco Use Types Packs/Day Years Used Date Smoking Tobacco: Former Cigarettes Q uit: 10/09/2010 Smokeless Tobacco: Never Sex and Gender Information Value Date Recorded Sex Assigned at Not on file Gender Identity Not on file Sexual Orientation Not on file documented as of this encounter Plan of Treatment Scheduled Referrals Name Type Priority Associated Diagnoses Orde r Schedule Referral to Neurology Outpatient Referral Routine Expressive language disorder Ordered: 07/05/2023 documented as of this encounter Visit Diagnoses Diagnosis Expressive language disorder documented in this encounter Care Teams Flower Arranger Relationship Specialty Start Date End Date Андрей Coello MD PCP - General 12/05/16 03/10/24 documented as of this encounter
--- OUTSIDE RECORDS SUMMARY | 2024-07-25 10:26 | XMS_ITS | Encounter Summary ---
Author Organization [facility] Address [facility] [place] [address] Care Team Providers Care Spinning Room Worker Name Role Phone Dandy Hodges Primary Care Provider + Reason for Visit * Reason Comments Follow-up Encounter Details Date Type Department Care Team (Late st Contact Info) Description 03/26/2024 4:30 PM EDT [place] [phone] Ronnie Jamil MD [facility] [place] [address] Aphasia; Transient neurological symptoms Social History Tobacco [...] Jamil MD - 03/26/2024 4:30 PM EDT [facility] DEPARTMENT OF NEUROLOGY GENERAL NEUROLOGY CLINIC FOLLOW-UP VISIT Patient name: Elias Pennington Date of : 1960 Referring provider: Андрей Coello MD [address] [place] [address] PCP: RIAN Holbrook [address] [place] [address] Date: 03/26/2024 Time: 04:30 PM CC: Chief Complaint Patient presents with Follow-up HPI/background: Briefly, 64 y.o. R-handed man with a history of CAD (3 stents here at [facility]), HLD, HTN, DMII (HbA1c unclear at this time), lumbar spinal stenosis, WILLIS on CPAP, and MDD initially referred to the [facility] neurology clinic for evaluation of transient neurological [...] Vitals: 03/26/24 1601 BP: 132/58 BP Location (NB): Right arm Patient Position: Sitting BP Cuff [...] Plantar deferred deferred Schneider's negative positive Coordination/Gait: Zxnzvq-kb-sfci intact bilaterally. No dysmetria. Gait partially antalgic, otherwise able to rise from seated position unassisted and ambulate without help. Labs/Data/Results: - No interval labs/data. Imaging: - MRI brain w/o contrast (03/26/24) FINDINGS: Internal carotids, vertebral arteries, basilar artery are patent and normal in caliber. Normal course and caliber of the ACAs, MCAs, and fisher mussel. No aneurysms. Hypoplastic left P-comm, normal variant. Visualized brain is unremarkable. IMPRESSION No intracranial arterial abnormalities. Assessment: Problem List Items Addressed This Visit None Visit Diagnoses Aphasia Transient neurological symptoms 63 y.o. R-handed man with a history of CAD (3 stents here at [facility]), HLD, HTN, DMII (HbA1c unclear at this time), lumbar spinal stenosis, WILLIS on CPAP, and MDD referred to the [facility] neurology clinic forevaluation of transient neurological symptoms, [...] a total of 30 minutes on this csqn-ul-gius encounter on the date of service. This included: [x] Preparing to see the patient, review of laboratory test results and medical record [x] Independently interpreting neuroimaging or neurophysiological results [] Obtaining and/or reviewing separately obtained history (eg, outside records, caregiver) [x] Counseling and educating the patient/family/caregiver [] Referring and communicating with other health auto care center manager [x] Documenting clinical information in the electronic or other health record [] Care coordination Ronnie Jamil MD Materials Mgmt Tech Department of Neurology [facility] [address] P F documented in this encounter Plan of Treatment Not on file documented as of this encounter Visit Diagnoses Diagnosis Aphasia Transient neurological symptoms documented in this encounter Care Teams Spinning Room Worker Relationship Specialty Start Date End Date Dandy Hodges PA [facility] [address] PCP - General Internal Medicine 03/11/24 documented as of this encounter
--- OUTSIDE RECORDS SUMMARY | 2024-07-25 10:26 | XMS_ITS | Encounter Summary ---
Author Organization [facility] [place] [address] Care Team Providers Care Wrapper Selector Name Role Phone Dandy Hodges Primary Care Provider + Reason for Referral * Diagnostic Test (Routine) - Closed Specialty Diagnoses / Procedures Referred By Contac t Referred To Contact Radiology Diagnoses TIA (transient ischemic attack) Procedures MRI Angiogram Head wo Contrast (Generic) Ronnie Jamil MD [address] [place] [address] [place] [address] [place] [address] Referral ID Status Reason Start Date Expiration Date V isits Requested Visits Authorized [id number] Closed Specialty Service Requested 11/22/2023 05/24/2025 1 1 Reason for Visit * Diagnostic Test (Routine) - Closed Specialty Diagnoses / Procedures Referred By Contac t Referred To Contact Radiology Diagnoses TIA (transient ischemic attack) Procedures MRI Angiogram Head wo Contrast (Generic) Ronnie Jamil MD [address] [place] [address] [place] [address] [place] [address] Referral ID Status Reason Start Date Expiration Date V isits Requested Visits Authorized [id number] Closed Specialty Service Requested 11/22/2023 05/24/2025 1 1 Encounter Details Date Type Department Care Team (Latest Contact Info) Description 03/26/2024 9:57 AM EDT - 03/26/2024 11:53 AM EDT Hospital [place] [address] Ronnie Jamil MD [facility] [place] [address] TIA (transient ischemic attack) Discharge Disposition: Home [...] capsule by mouth Daily at Noon. 11/02/2023 gabapentin (NEURONTIN) 300 mg Capsule Take 300 [...] wo Contrast (Generic) (03/26/2024 10:27 AM EDT) S[employer]ES WORKSTATION ID [id number] RAD Anatomical Region Laterality Modality Head Magnetic [...] questions please contact the health animal care service worker that requested your imaging first. ? Narrative [...] and caliber of the ACAs, MCAs, and coil spring assembler. No aneurysms. Hypoplastic left P-comm, normal variant. [...] and caliber of the ACAs, MCAs, and coil spring assembler. No aneurysms. Hypoplastic left P-comm, normal variant. [...] have questions please contactthe health animal care service worker that requested your imaging first. Ronnie Jamil MD IMG MRI ORDERABLES documented in this encounter Visit Diagnoses Diagnosis TIA (transient ischemic attack) Unspecified transient cerebral ischemia documented in this encounter Care Teams Wrapper Selector Relationship Specialty Start Date End Date Dandy Hodges PA [facility] [place] [address] PCP - General Internal Medicine 03/11/24 documented as of this encounter
--- OUTSIDE RECORDS SUMMARY | 2024-07-25 10:26 | XMS_ITS | Encounter Summary ---
Author Organization [facility] [place] [address] Care Team Providers Care Sports Leadership Instructor Name Role Phone Андрей Coello MD Primary Care Provider [phone] Encounter Details Date Type Department Care Team [...] on filedocumented in this encounter Care Teams Sports Leadership Instructor Relationship Specialty Start Date End Date Андрей Coello MD PCP - General 12/05/16 03/10/24 documented as of this encounter
--- OUTSIDE RECORDS SUMMARY | 2024-07-25 10:26 | XMS_ITS | Encounter Summary ---
Author Organization [facility] [place] [address] Care Team Providers Care Mineral Industry Teacher Name Role Phone Dandy Hodges Primary Care [...] on filedocumented in this encounter Care Teams Mineral Industry Teacher Relationship Specialty Start Date End Date Dandy Hodges PA [address] [place] [address] PCP - General Internal Medicine 03/11/24 documented as of this encounter
--- OUTSIDE RECORDS SUMMARY | 2024-07-25 10:26 | XMS_ITS | Encounter Summary ---
Author Organization [facility] Address [facility] [place] [address] Care Team Providers Care Deaf And Hard Of Hearing Teacher Name Role Phone Андрей Coello MD Primary Care Provider [phone] Encounter Details Date Type Department Care Team (Late st Contact Info) Description 03/13/2023 Ancillary Procedure Radiology Library at [facility] [place] [phone] Андрей Coello MD [address] [place] [phone] Social History Tobacco Use Types Packs/Day Years [...] nuclear medicine (03/13/2023 12:00 AM EDT) Narrative [facility] - 12/03/2023 4:32 PM EDT This exam is auto-finalizing. It's purpose is for storage only. Андрей Coello MD IMG FILM LIBRARY ORD ERABLES [facility] [employer] documented in this encounter Visit Diagnoses Not on filedocumented in this encounter Care Teams Deaf And Hard Of Hearing Teacher Relationship Specialty Start Date End Date Андрей Coello MD PCP - General 12/05/16 03/10/24 documented as of this encounter
--- OUTSIDE RECORDS SUMMARY | 2024-07-25 10:26 | XMS_ITS | Encounter Summary ---
[place] [address] Care Team Providers Care Pipe Racker Name Role Phone Андрей Coello MD Primary Care Provider [phone] Reason for Referral * Diagnostic Test (Routine) - Closed Specialty Diagnoses / Procedures Referred By Contac t Referred To Contact Cardiology Diagnoses TIA (transient ischemic attack) Procedures Echocardiogram Transthoracic Echocardiogram Transthoracic Ronnie Sánchez MD [address] [place] [address] [place] [address] [facility] [place] [address] Referral ID Status Reason Start Date Expiration Date V isits Requested Visits Authorized [id number] Closed Specialty Service Requested 11/22/2023 11/21/2024 1 1 * Diagnostic Test (Routine) - Closed Specialty Diagnoses / Procedures Referred By Contac t Referred To Contact Radiology Diagnoses TIA (transient ischemic attack) Procedures MRI Angiogram Head wo Contrast (Generic) Ronnie Sánchez MD [address] [place] [address] [place] [address] [facility] [place] [address] Referral ID Status Reason Start Date Expiration Date V isits Requested Visits Authorized [id number] Closed Specialty Service Requested 11/22/2023 05/24/2025 1 1 * Speech Therapy (Routine) - Authorized Specialty Diagnoses / Procedures Referred By Chin helm Referred To Contact Speech Pathology / Speech Therapy Diagnoses Aphasia RFV aphasia Ronnie Sánchez MD [address] [facility] [place] [address] [place] [address] [facility] [place] [address] Referral ID Status Reason Start Date Expiration Date Visits Requested Visits Authorized [id number] Authorized Evaluate and Treat 11/22/2023 11/21/2024 100 100 Reason for Visit * Reason Comments Aphasia * Consultation (Routine) - Closed Specialty Diagnoses / Procedures Referred By Chin helm Referred To Contact Neurology Diagnoses Expressive language disorder ? TIAs Андрей Coello MD [address] [place] [address] [place] [address] [facility] Neurology [address] [place] [address] Referral ID Status Reason Start Date Expiration Date V isits Requested Visits Authorized [id number] Closed Consult, Test & Treat 07/05/2023 07/04/2024 1 1 Encounter Details Date Type Department Care Team ([facility] Contact Info) Description 11/22/2023 10:00 AM EDT [place] [address] Ronnie Sánchez MD [facility] [place] [address] TIA (transient ischemic attack); Aphasia Social History [...] encounter Patient Instructions * Patient Instructions* Ronnie Sánchez MD - 11/22/2023 10:00 AM EDT - [...] Care Everywhere. * TIA (Transient Ischemic Attack) (Tongan) * Stroke: Symptoms: General Info (Tongan) documented in this encounter Progress Notes * Ronnie Sánchez MD - 11/22/2023 10:00 AM EDT [facility] DEPARTMENT OF NEUROLOGY GENERAL NEUROLOGY CLINIC INITIAL VISIT Patient name: Elias Perez Date of : 1960 Referring provider: Андрей Coello MD [address] [place] [address] PCP: Андрей Coello MD [place] [address] Date: 11/22/2023 Time: 10:00 CC: Chief Complaint Patient presents with Aphasia HPI: Elias Perez is a 63 y.o. R-handed man with a history of CAD (3 stents here at [facility]), HLD, HTN, DMII (HbA1c unclear at this time), lumbar spinal stenosis, WILLIS on CPAP, and MDD referred to the [facility] neurology clinic for evaluation of transient neurological [...] happened again, was a short stutter. Lasted -70 seconds at the time. 3 weeks ago [...] works, currently on disability. 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 No dysmetria. Gait unremarkable. Labs/Data/Results: [...] history of CAD (3 stents here at [facility]), HLD, HTN, DMII (HbA1c unclear at this time), lumbar spinal stenosis, WILLIS on CPAP, and MDD referred to the [facility] neurology clinic forevaluation of transient neurological symptoms, [...] of cardiac risk factors. - Will obtain DAMAGE APPRAISER evaluation. - Will obtain TTE w/ bubble [...] a total of 60 minutes on this ljjp-aj-czpv encounter on the date of service. This included: [x] Preparing to see the patient, review of laboratory test results and medical record [] Independently interpreting neuroimaging or neurophysiological results [x] Obtaining and/or reviewing separately obtained history (eg, outside records, caregiver) [x] Counseling and educating the patient/family/caregiver [] Referring and communicating with other health customer care voice consultant [x] Documenting clinical information in the electronic or other health record [] Care coordination Ronnie Sánchez MD Welding Machine Operator Electron Beam Department of Neurology [facility] [address] P F documented in this encounter Plan of Treatment Scheduled Referrals Name Type Priority Associated Diagnoses Orde r Schedule Referral to Speech Therapy Outpatient Referral Routine Aphasia Ordered: 11/22/2023 documented as of this encounter Results * MRI Angiogram Head wo Contrast (Generic) (03/26/2024 10:27 AM EDT) [employer] Signature WORKSTATION ID [id number] DH RAD Anatomical Region Laterality Modality Head [...] who have questions please contact the health care worker that requested your imaging first. ? Electronically signed by: Venancio Parsons [facility] ([phone]), at 03/26/2024 1:24 PM Narrative 03/26/2024 1:24 [...] and caliber of the ACAs, MCAs, and manager of broadcast content. No aneurysms. Hypoplastic left P-comm, normal variant. [...] and caliber of the ACAs, MCAs, and manager of broadcast content. No aneurysms. Hypoplastic left P-comm, normal variant. [...] patients who have questions please contactthe health care worker that requested your imaging first. Electronically signed by: Venancio Parsons [facility]([phone]), at 03/26/2024 1:24 PM Ronnie Sánchez MD IMDonaldo MRI ORDERABLES * ECHO COMPLETE (03/26/2024 10:05 AM EDT) Anatomical Region Laterality Modality Cardiac Other 03/26/2024 9:10 AM EDT Narrative 03/26/2024 10:09 AM EDT [address] [place] [address] ? Echocardiogram Report Name: ELIAS PEREZ ? Study Date: 03/26/2024 09:10 AMBP: 110/38 mmHg ? Patient Location: 4A : 1960 ? Height: 183 cm ? Account: [id number] Age: 64 yrs ? Weight: 128 kg Gender: Male ?BSA: 2.5 m2 Ordering Physician: RONNIE SÁNCHEZ Referring Physician: RONNIE SÁNCHEZ Performed By: USR Exam Location: [facility]. Interpretation Summary Left ventricle is of normal size. Wall thickness is normal. Left ventricular systolic function is normal. The left ventricular ejection fraction is 55% by Thorne's biplane. There are no segmental wall motion abnormalities. The right ventricle is of normal size. Right ventricular systolic function is normal. There is no evidence for a patent foramen ovale visualized with agitated saline. Procedure Complete-[id number]. Satisfactory quality. Left Ventricle Left ventricle is [...] Note Earnest Honeycutt MD - 03/26/2024 [address] [place] [address] Echocardiogram Report Name: ELIAS PEREZ Study Date: 409:10 AMBP: 110/38 mmHg Patient Location: 4A : 1960 Height: 183 cm Account: [id number] Age: 64 yrs Weight: 128 kg Gender: Male BSA: 2.5 m2 Ordering Physician: RONNIE SÁNCHEZ Referring Physician: SÁNCHEZ, RONNIE K Performed By: USR Exam Location: [facility]. Interpretation Summary Left ventricle is of normal size. Wall thickness is normal. Leftventricular systolic function is normal. The left ventricular ejection fraction is 55%by Thorne's biplane. There are no segmental wall motion abnormalities. The right ventricle is of normal size. Right ventricular systolic functionis normal. There is no evidence for a patent foramen ovale visualized with agitatedsaline. Procedure Complete-[id number]. Satisfactory quality. Left Ventricle Left ventricle is [...] ischemia documented in this encounter Care Teams Pipe Racker Relationship Specialty Start Date End Date Андрей Coello MD PCP - General 12/05/16 03/10/24 documented as of this encounter
--- OUTSIDE RECORDS SUMMARY | 2024-07-25 10:26 | XMS_ITS | Encounter Summary ---
Author Organization [facility] Address [facility] [place] [address] Care Team Providers Care Senior Ecologist Name Role Phone Dandy Hodges Primary Care Provider + Reason for Visit * Reason Comments Procedure Encounter Details Date Type Department Care Team (Latest Contact Info) Description 03/26/2024 11:54 AM EDT - 03/26/2024 11:59 PM EDT Hospital En[place] [address] TIA (transient ischemic attack); Aphasia Discharge Disposition: [...] Pre-Procedure Diagnose(s): TIA (transient ischemic attack); Aphasia [facility] Department of Neurology Outpatient Routine [...] channel digitized electroencephalogram was performed in the [facility] Clinical Neurophysiology Laboratory. The 10/20 international system of electrode placement was used and bipolar and referential electrode montages were recorded. In addition to EEG the patient was monitored for EKGand lateral/vertical eye movements. Video was recorded during the session. KETTLE COOK'S REPORT: Performed by: LEE Lacey Patient was [...] Gio Ruiz MD ? 03/27/2024 ??3:42 PM [facility] Department of Neurology Outpatient Routine [...] channel digitized electroencephalogram was performed in the [facility] Clinical Neurophysiology Laboratory. The 10/20 international system of electrode placement was used and bipolar and referential electrode montages were recorded. ??In addition to EEG the patient was monitored for EKG and lateral/vertical eye movements. Video was recorded during the session. KETTLE COOK'S REPORT: Performed by: LEE Lacey Patient was [...] Aphasia documented in this encounter Care Teams Senior Ecologist Relationship Specialty Start Date End Date Dandy Hodges [place] [address] [place] [address] PCP - General Internal Medicine 03/11/24 documented as of this encounter
--- OUTSIDE RECORDS SUMMARY | 2024-07-25 10:26 | XMS_ITS | Encounter Summary ---
Author Organization [facility] [place] [address] Care Team Providers Care Hydro Mechanic Name Role Phone Андрей Coello MD Primary Care Provider [phone] Reason for Visit * Speech Therapy (Routine) - Authorized Specialty Diagnoses / Procedures Referred By Chin helm Referred To Contact Speech Pathology / Speech Therapy Diagnoses Aphasia RFV aphasia Ronnie Jamil MD [address] [place] [address] [place] [address] [facility] [place] [address] Referral ID Status Reason Start Date Expiration Date Visits Requested Visits Authorized [id number] Authorized Evaluate and Treat 11/22/2023 11/21/2024 100 100 Encounter Details Date Type Department Care Team (Latest Contact Info) Description 01/31/2024 9:00 AM EDT Office Visit Speech [place] [phone] Ananya Torres, APPRENTICE CARPENTER Cognitive communication deficit Social History Tobacco Use Types Packs/Day Years Used Date Smoking Tobacco: Former Cigarettes Q uit: 10/09/2010 Smokeless Tobacco: Never Sex and Gender Information Value Date Recorded Sex Assigned at Not on file Gender Identity Not on file Sexual Orientation Not on file documented as of this encounter Miscellaneous Notes * Initial Evaluation - Ananya Torres, APPRENTICE CARPENTER - 01/31/2024 9:00 AM EDT Zfzidc-Ybxudoss-Znoivbcme Evaluation Patient Name: Elias Pennington Date of [...] was seen on 01/31/2024 for an Outpatient Gpfiqj-Cwzubppj-Qylbtngke Evaluation. PMHx is significant for CAD (3 stents here at [facility]), HLD, HTN, DMII (HbA1c unclear at this [...] tolerance. He has no documented history of APPRENTICE CARPENTER intervention. Relevant Imaging: MRI Brain wo (completed [...] 05/01 Spontaneous Speech Total: Spontaneous Speech Score: (Use to calculate AQ) Auditory Verbal Comprehension: [...] as C (About once a week) = 3 # of items rated as D (More than once a week or less than once a day) = 12/02 # of items rated as E (Once or more in a day)= 11/02 Prompt Response Comments Having to check whether [...] has been educated on role of the APPRENTICE CARPENTER, overview of the rehab program, and general [...] may be indicated. Recommend participation in skilled APPRENTICE CARPENTER services to further train compensatory strategies to bypass current cognitive-linguistic dysfunctions, target the worship of prior level of functioning, andaid in [...] you put somethingdown Association: linking old information (halfway memory) with new information such as taking medicine with breakfast External memory strategies: Write things down in a resource management planner or on a calendar Set timers [...] mind??? I'll ask you later.?? Adapted from: [email or web address]/ Patient would benefit from continued APPRENTICE CARPENTER services. Short Term Goals: - Patient will teach back compensatory language strategies with 100% accuracy given minimal cueing. - Patient will teach back compensatory cognitive-linguistic strategies with 100% accuracy given minimal cueing. - Patient will use trained kgpdnq-oxpoejbq-xpvaanpnc strategies to complete a functional task with [...] of Semantic Feature Analysis given minimal cueing. Metal Base Blocker Goal(s): - Patient will independently demonstrate compensatory and support strategies to improve cognitive-communicative effectiveness in the current living, community, and work environments. Plan: - Recommend skilled APPRENTICE CARPENTER services for 1x per week, every other [...] any questions or concerns. Ananya Torres, MS, [facility]-APPRENTICE CARPENTER Speech-Language Pathologist Pager # [phone] documented in this encounter Plan of Treatment Not on file documented as of this encounter Procedures Procedure Name Priority Date/Time Associated Diagnosis Comments APPRENTICE CARPENTER PLAN OF CARE CERT/RE-CERT Routine 01/31/2024 4:22 PM EDT Cognitive communication deficit documented in this encounter Visit Diagnoses Diagnosis Cognitive communication deficit documented in this encounter Care Teams Hydro Mechanic Relationship Specialty Start Date End Date Андрей Coello MD PCP - General 12/05/16 03/10/24 documented as of this encounter
--- OUTSIDE RECORDS SUMMARY | 2024-07-25 10:26 | XMS_ITS | Encounter Summary ---
Author Organization [facility] Address [facility] [place] [address] Care Team Providers Care Administrative Office Assistant Name Role Phone Андрей Coello MD Primary Care Provider Encounter Details Date Type Department Care Team (Late st Contact Info) Description 10/03/2023 12:05 AM EDT Ancillary Procedure Radiology Library at [facility] ([place] [id number] Андрей Coello MD [address] [place] [id number] Social History Tobacco Use Types Packs/Day Years [...] CT Chest (10/03/2023 12:05 AM EDT) Narrative [facility] - 12/03/2023 4:32 PM EDT This exam is auto-finalizing. It's purpose is for storage only. Андрей Coello MD G FILM LIBRARY ORD ERABLES [facility] [place] documented in this encounter Visit Diagnoses Not on filedocumented in this encounter Care Teams Administrative Office Assistant Relationship Specialty Start Date End Date Андрей Coello MD PCP - General 12/05/16 03/10/24 documented as of this encounter
--- OUTSIDE RECORDS SUMMARY | 2024-07-25 10:26 | XMS_ITS | Encounter Summary ---
Author Organization [facility] Address [facility] [place] [address] Care Team Providers Care Firmware Software Verification Engineer Name Role Phone Андрей Coello MD Primary Care Provider [phone] Encounter Details Date Type Department Care Team (Late st Contact Info) Description 10/19/2020 10:30 AM EDT - 10/19/2020 11:30 AM EDT Surgery Gauge [place] [address] Earnest Aguilera MD [facility] [place] [address] CARDIAC CATHETERIZATION Social History Tobacco Use Types [...] by your doctor, do not take any kknr-nam-abgkluy medicines or herbal preparations without first discussing this with your doctor or pharmacist. There is the possibility of side effect and interactions when these are combined. Follow up Care Who to Call with Questions or Problems If there are any questions or problems that you think might be related to your cardiac cath or angioplasty, contact the teller coordinator unified communications architect by calling [facility] at . documented in this encounter Medications [...] PRN 05/15/2005 documented as of this encounter H&P Notes * Cara iniguezterra Isaacs - 10/19/2020 1:11 PM EDT Patient Name: [...] Glucose, POC 98 65 - 199 mg/dL [facility] Comment: Supplemental ranges: <140 mg/dL before meals <180 mg/dL all other times of the day Blood specimen (specimen) 10/19/2020 4:40 PM EDT 10/19/2020 4:40 PM EDT Earnest Aguilera MD POINT OF CARE TEST O DIONI Performing Organization Address [facility] Co de Phone Number [facility] [place] [address] * POCT Glucose (10/19/2020 2:38 PM EDT) Glucose, POC 110 65 - 199 mg/dL [facility] Comment: Supplemental ranges: <140 mg/dL before meals <180 mg/dL all other times of the day Blood specimen (specimen) 10/19/2020 2:38 PM EDT 10/19/2020 2:38 PM EDT Earnest Aguilera MD POINT OF CARE TEST O DIONI Performing Organization Address [facility] Co de Phone Number [facility] [place] [address] * CARDIAC CATHETERIZATION (10/19/2020 2:14 PM EDT) Anatomical Region Laterality Modality Other Narrative 10/20/2020 2:29 AM EDT ?[facility] ? Cardiac Catheterization/Intervention Report ? Patient Name: Elias Pennington. ? Procedure Date: 10/19/2020 ? A #: [id number] ? Primary Physician: Earnest Aguilera ? Case #: [id number] ? File Name: [id number] ? Catheterization Order Number: [id number] ? [facility] ? Final Report [place], [place] ? Patient Name: ? Elias Pennington ?ID#: ?[id number] ? : ?1960 ? Procedure Date: ? [...] procedure was Elective. 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 Chest pain symptom [...] Procedure Note Earnest Aguilera MD - 10/20/2020 [facility] Cardiac Catheterization/Intervention Report Patient Name: Elias Pennington Procedure Date: 10/19/2020 A #: [id number] Primary Physician: Earnest Aguilera Case #: [id number] File Name: [id number] Catheterization Order Number: [id number] [facility] FinalReport [place], [place] Patient Name: Elias Pennington ID#:[id number] :1960 Procedure Date: October 19, 2020 Case [...] was designated as ASA Class III. The [facility] clinical frailtyscale is 3: Managing Well. Diagnostic [...] diagnostic procedure was Elective. 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 Chest pain symptomassessment [...] units of heparin were administered. A total [id number] of Omnipaque were opened, 55cc of Omnipaque were administered coz52gp of Omnipaque were wasted. Radiation: Fluoro time [...] sedation nurse. Case time =00:10. Dr. Earnest Aguielra M.D. performed the coronary angiography and left [...] (Bezet) 425 ms MUSE SYSTEM Calculated P [place] 54 degrees MUSE SYSTEM Calculated R [place] 7 degrees MUSE SYSTEM Calculated T [place] 21 degrees MUSE SYSTEM INTERPRETATION Normal sinus rhythm Normal ECG When compared with ECG of 26-JAN-2017 11:58, No significant change was found Confirmed by MD Tejas, Dandy Hidalgo ([id number]) on 10/19/2020 1:38:12 PM MUSE SYSTEM 10/19/2020 12:3 9 PM EDT 10/19/2020 1:38 PM EDT Earnest Aguilera MD ECG ORDERABLES MUSE SYSTEM * POCT Glucose (10/19/2020 12:25 PM EDT) Glucose, POC 114 65 - 199 mg/dL [facility] Comment: Supplemental ranges: <140 mg/dL before meals <180 mg/dL all other times of the day Blood specimen (specimen) 10/19/2020 12:25 PM EDT 10/19/2020 12:25 PM EDT Earnest Aguilera MD POINT OF CARE TEST O RDERABLES [facility] [place] [address] * Differential, Automated (10/19/2020 8:18 AM EDT) Neutrophil % 70.1 % [facility] Neutrophil Absolute 4.98 1.70 - 6.10 x10(3)/[facility] Lymph % 21.5 % [facility] Lymphocytes Abs 1.5 0.9 - 3.2 x10(3)/[facility] Monocyte % 6.0 % [facility] Monocyte Abs 0.4 0.3 - 0.9 x10(3)/[facility] Eos % 1.3 % [facility] Eosinophils Abs 0.1 0.0 - 0.4 x10(3)/[facility] Basophil % 0.7 % [facility] Baso Absolute 0.0 0.0 - 0.1 x10(3)/[facility] Immature Gran % 0.40 % [facility] Comment: Immature granulocytes(IG's)percentage and absolute count will include metamyelocytes, myelocytes, and promyelocytes. Blood smears from CBCs yielding IG's will be scanned manually for concordance. If this scan disagrees with the automated IG or if promyelocytes are noted, a manual differential will be performed. Immature Gran Absolute 0.03 0.00 - 0.04 x10(3)/[facility] Blood specimen (specimen) 10/19/2020 8:18 AM EDT 10/19/2020 8:26 AM EDT Narrative Resulting Agency Comment Spec In Lab Ramakrishna MODI HEMATOLOGY ORDERABLE S [facility] [place] [address] * Hemogram (10/19/2020 8:18 AM EDT) [facility] White Blood Cell 7.1 4.0 - 9.5 x10(3)/[facility] Red Blood Cell 5.11 4.58 - 5.54 x10(6)/[facility] Hemoglobin 14.4 13.7 - 16.5 gm/dL [facility] Hematocrit 43.9 40.5 - 48.5 % [facility] Mean Cell Volume 85.9 82.9 - 93.1 [facility] Mean Cell Hemoglobin 28.2 27.5 - 32.1 pg [facility] Mean Cell Hemoglobin Concentration 32.8 32.0 - 35.7 gm/dL [facility] Platelet 167 145 - 357 x10(3)/[facility] RDW Standard Deviation 41.8 36.0 - 45.0 [facility] RDW coefficient of variation 13.3 11.4 - 13.8 % [facility] Mean Platelet Volume 10.6 7.6 - 12.9 [facility] NRBC% auto 0.0 % [facility] NRBC Absolute 0.000 0.000 - 0.000 x10(3)/[facility] Blood specimen (specimen) 10/19/2020 8:18 AM EDT 10/19/2020 8:26 AM EDT Narrative Resulting Agency Comment Spec In Lab Ramakrishna MODI HEMATOLOGY ORDERABLE S [facility] [place] [address] * (ABNORMAL) BMP w/fasting Glucose (10/19/2020 8:18 AM EDT) Pathologist [facility] Glucose Fasting 164(H) 65 - 99 mg/dL [facility] Comment: ?Fasting* Glucose Interpretive Criteria [...] of Diabetes Mellitus, Position Statement from the [place] [employer]. ??Diabetes Care, Volume 33, Supplement 1, Jul 2009 Blood Urea Nitrogen 14 10 - 20 mg/dL [facility] Creatinine 0.73(L) 0.80 - 1.50 mg/dL [facility] Sodium 136 135 - 145 mmol/L [facility] Potassium 4.3 3.5 - 5.0 mmol/L [facility] Comment: Please note: ??Patients with WBC >100,000 may have falsely elevated Potassium levels. ??For accurate Potassium quantification in these patients send serum separator tube (gold top) for subsequent determinations. ??Contact the Clinical Chemistry Laboratory if there are any questions. Chloride 101 98 - 107 mmol/L [facility] Carbon Dioxide 23 22 - 31 mmol/L [facility] Anion Gap 12 5 - 15 mmol/L [facility] Calcium 9.6 8.5 - 10.5 mg/dL [facility] Est Glomerular Filtration Rate 102 >=60 mL/min/1. 73 m?? [facility] Comment: This patient? s estimated [...] In Lab Earnest Aguilera MD CHEMISTRY ORDERABLES [facility] [place] [address] documented in this encounter Visit Diagnoses Diagnosis Abnormal stress test- Primary Other nonspecific abnormal cardiovascular system function study Abnormal stress test Other nonspecific abnormal cardiovascular system function study Coronary artery disease Coronary atherosclerosis of unspecified type of vessel, blackfeet or graft Abnormal stress test Other nonspecific abnormal cardiovascular system function study Coronary artery disease, angina presence unspecified, unspecified vessel or lesion type, unspecified whether blackfeet or transplanted heart documented in this encounter [...] Starting on e 10/19/20 at 1245, Until 10/19/20 at 2242, Cath (Day of Procedure) 1247 (New Bag - Prov ider: Iliana Grewal RN) sodium chloride 0.9% infusion 125 mL/hr, Intravenous, CONTINUOUS, Starting on e 10/19/20 at 1445, Until e 10/19/20 at 1644, Recovery (Recovery-Hospital Unit) 1430 [...] PRN, Starting on 10/19/20 at 1354, Until Tu10/19/20 at 2242, Intra-Operative (Intra-Procedure), Routine 1354 (Given [...] Zaragoza) documented in this encounter Care Teams Firmware Software Verification Engineer Relationship Specialty Start Date End Date Андрей Coello MD PCP - General 12/05/16 03/10/24 documented as of this encounter
--- OUTSIDE RECORDS SUMMARY | 2024-07-25 10:26 | XMS_ITS | Encounter Summary ---
Author Organization [facility] Address [facility] [place] [address] Care Team Providers Care Capsule Filler Name Role Phone Андрей Coello MD Primary Care Provider [phone] Encounter Details Date Type Department Care Team (Late st Contact Info) Description 11/26/2023 [place] [phone] Ronnie Jamil MD [facility] [place] [address] Social History Tobacco Use Types Packs/Day Years Used Date Smoking Tobacco: Former Cigarettes Q uit: 10/09/2010 Smokeless Tobacco: Never Sex and Gender Information Value Date Recorded Sex Assigned at Not on file Gender Identity Not on file Sexual Orientation Not on file documented as of this encounter Miscellaneous Notes * Telephone Encounter - Shirley Guillaume - 11/26/2023 10:28 AM EDT Copied from [facility] #[id number]. Topic: Specialty Dept CRMs - Generic Call >> November 22, 2023 1:20 PM Jenna Juarez wrote: Specialist: Aubrey Jamil MD Relationship (if other than patient-full name): [facility] Reason for Call: [facility] was calling as they received a fax for imaging records and films that was to be sent to [facility] documented in this encounter Plan of Treatment Not on file documented as of this encounter Visit Diagnoses Not on filedocumented in this encounter Care Teams Capsule Filler Relationship Specialty Start Date End Date Андрей Coello MD PCP - General 12/05/16 03/10/24 documented as of this encounter
--- OUTSIDE RECORDS SUMMARY | 2024-07-25 10:26 | XMS_ITS | Encounter Summary ---
Author Organization [facility] [place] [address] Care Team Providers Care Picture Enlarger Name Role Phone Андрей Coello MD Primary Care Provider [phone] Encounter Details Date Type Department Care Team [...] on filedocumented in this encounter Care Teams Picture Enlarger Relationship Specialty Start Date End Date Андрей Coello MD PCP - General 12/05/16 03/10/24 documented as of this encounter
--- OUTSIDE RECORDS SUMMARY | 2024-07-25 10:26 | XMS_ITS | Encounter Summary ---
Author Organization [facility] [place] [address] Care Team Providers Care Line Assembly Utility Worker Name Role Phone Андрей Coello MD [...] on filedocumented in this encounter Care Teams Line Assembly Utility Worker Relationship Specialty Start Date End Date Андрей Coello MD PCP - General 12/05/16 03/10/24 documented as of this encounter
--- OUTSIDE RECORDS SUMMARY | 2024-07-25 10:26 | XMS_ITS | Encounter Summary ---
Author Organization [facility] [place] [address] Care Team Providers Care Kitchen Helper Name Role Phone Dandy Hodges Primary [...] on filedocumented in this encounter Care Teams Kitchen Helper Relationship Specialty Start Date End Date Dandy Hodges PA [address] [place] [address] PCP - General Internal Medicine 03/11/24 documented as of this encounter
--- OUTSIDE RECORDS SUMMARY | 2024-07-25 10:26 | XMS_ITS | Encounter Summary ---
Author Organization [facility] [place] [address] Care Team Providers Care Gang Ripsaw Operator Name Role Phone Dandy Hodges Primary Care Provider + Reason for Referral * Diagnostic Test (Routine) - Closed Specialty Diagnoses / Procedures Referred By Contac t Referred To Contact Cardiology Diagnoses TIA (transient ischemic attack) Procedures Echocardiogram Transthoracic Echocardiogram Transthoracic Ronnie Sánchez MD [address] [place] [address] [place] [address] [facility] [place] [address] Referral ID Status Reason Start Date Expiration Date V isits Requested Visits Authorized [id number] Closed Specialty Service Requested 11/22/2023 11/21/2024 1 1 Reason for Visit * Diagnostic Test (Routine) - Closed Specialty Diagnoses / Procedures Referred By Contac t Referred To Contact Cardiology Diagnoses TIA (transient ischemic attack) Procedures Echocardiogram Transthoracic Echocardiogram Transthoracic Ronnie Sánchez MD [address] [place] [address] [place] [address] [facility] [place] [address] Referral ID Status Reason Start Date Expiration Date V isits Requested Visits Authorized [id number] Closed Specialty Service Requested 11/22/2023 11/21/2024 1 1 Encounter Details Date Type Department Care Team (Latest Contact Info) Description 03/26/2024 8:35 AM EDT - 03/26/2024 9:56 AM EDT Hospital Encounter Non-Invasive Cardiology Lab [facility] [address] Ronnie Sánchez MD [facility] [place] [place] [address] TIA (transient ischemic attack) Discharge Disposition: Home [...] AM EDT Narrative 03/26/2024 10:09 AM EDT [address] [place] [address] ? Echocardiogram Report Name: ELIAS PEREZ ? Study Date: 03/26/2024 09:10 AMBP: 110/38 mmHg ? Patient Location: 4A : 1960 ? Height: 183 cm ? Account: [id number] Age: 64 yrs ? Weight: 128 kg Gender: Male ?BSA: 2.5 m2 Ordering Physician: RONNIE SÁNCHEZ Referring Physician: RONNIE SÁNCHEZ Performed By: [facility] Exam Location: [facility]. Interpretation Summary Left ventricle is of normal size. Wall thickness is normal. Left ventricular systolic function is normal. The left ventricular ejection fraction is 55% by Thorne's biplane. There are no segmental wall motion abnormalities. The right ventricle is of normal size. Right ventricular systolic function is normal. There is no evidence for a patent foramen ovale visualized with agitated saline. Procedure Complete-[id number]. Satisfactory quality. Left Ventricle Left ventricle is [...] Note Earnest Honeycutt MD - 03/26/2024 1 [place] [address] Echocardiogram Report Name: ELIAS PEREZ Study Date: 409:10 AMBP: 110/38 mmHg Patient Location: : 1960 Height: 183 cm Account: [id number] Age: 64 yrs Weight: 128 kg Gender: Male BSA: 2.5 m2 Ordering Physician: RONNIE SÁNCHEZ Referring Physician: RONNIE SÁNCHEZ Performed By: USR Exam Location: [facility]. Interpretation Summary Left ventricle is of normal size. Wall thickness is normal. Leftventricular systolic function is normal. The left ventricular ejection fraction is 55%by Thorne's biplane. There are no segmental wall motion abnormalities. The right ventricle is of normal size. Right ventricular systolic functionis normal. There is no evidence for a patent foramen ovale visualized with agitatedsaline. Procedure Complete-[id number]. Satisfactory quality. Left Ventricle Left ventricle is [...] ischemia documented in this encounter Care Teams Gang Ripsaw Operator Relationship Specialty Start Date End Date Dandy Hodges PA [facility] [place] [address] PCP - General Internal Medicine 03/11/24 documented as of this encounter
--- OUTSIDE RECORDS SUMMARY | 2024-07-25 10:26 | XMS_ITS | Encounter Summary ---
Author Organization [facility] [place] [address] Care Team Providers Care Ticket Puller Name Role Phone Dandy Hodges Primary Care Provider + Encounter Details Date Type Department Care Team (Late st Contact Info) Description 04/17/2024 Telephone [place] [phone] Lorena Harp Social History Tobacco Use Types [...] filedocumented in this encounter Care Teams Ticket Puller Relationship Specialty Start Date End Date Dandy Hodges [place] [address] [place] [address] PCP - General Internal Medicine 03/11/24 documented as of this encounter
--- OUTSIDE RECORDS SUMMARY | 2024-07-25 10:26 | XMS_ITS | Encounter Summary ---
Author Organization [facility] [place] [place] [address] Care Team Providers Care Wire Spooler Name Role Phone Андрей Coello MD Primary Care Provider [phone] Reason for Visit * Reason Onset Date Comments Other 10/20/2020 cardiac cath que stion Encounter Details Date Type Department Care Team (Late st Contact Info) Description 10/20/2020 Telephone Cardiology at [address] [phone] Betzaida Velasco RN Other (cardiac cath question) [...] on filedocumented in this encounter Care Teams Wire Spooler Relationship Specialty Start Date End Date Андрей Coello MD PCP - General 12/05/16 03/10/24 documented as of this encounter
--- OUTSIDE RECORDS SUMMARY | 2024-07-25 10:26 | XMS_ITS | Encounter Summary ---
Author Organization [facility] [place] [address] Care Team Providers Care Software Test Analyst Name Role Phone Dandy Hodges Primary Care Provider + Reason for Visit * Speech Therapy (Routine) - Authorized Specialty Diagnoses / Procedures Referred By Chin helm Referred To Contact Speech Pathology / Speech Therapy Diagnoses Aphasia RFV aphasia Ronnie Jamil MD [address] [place] [address] [place] [address] [facility] [place] [address] Referral ID Status Reason Start Date Expiration Date Visits Requested Visits Authorized [id number] Authorized Evaluate and Treat 11/22/2023 11/21/2024 100 100 Encounter Details Date Type Department Care Team (Latest Contact Info) Description 03/11/2024 8:00 AM EDT Office [place] [phone] Ananya Torres, FILER HELPER Cognitive communication deficit Social History Tobacco Use Types Packs/Day Years Used Date Smoking Tobacco: Former Cigarettes Q uit: 10/09/2010 Smokeless Tobacco: Never Sex and Gender Information Value Date Recorded Sex Assigned at Not on file Gender Identity Not on file Sexual Orientation Not on file documented as of this encounter Miscellaneous Notes * Treatment - Therapy - Ananya Torres, FILER HELPER - 03/11/2024 8:00 AM EDT Speech Therapy [...] was seen on 01/31/2024 for an Outpatient Lbhmwd-Bnkuhcyw-Ecegncbuj Evaluation. PMHx is significant for CAD (3 stents here at [facility]), HLD, HTN, DMII (HbA1c unclear at this time), lumbar spinal stenosis, WILLIS on CPAP, and MDD. He was referred by Ronnie Jamil with a diagnosis of transient expressive aphasia, c/f TIA vs underlying seizure. MRI Angiogram Head wo Contrast is scheduled for 03/26/2024 with radiology as further work-up of these symptoms. Results of Elias's didkiu-tntuqwwj-expfjcomp evaluation reveal the following: Results of standardized [...] The physician stated that he agreed with FILER HELPER's recommendation to present to the ED if [...] or description of it. Phonological Components Analysis (TUCKING MACHINE OPERATOR): Phonological Components Analysis is a treatment approach based off of the principles and structure of SFA. It targets word-finding skills through the direct stimulation of phonological categories. Ptwas provided with a target picture and was asked to identify the first sound, another word that starts with that sound (first sound associate), final sound, rhyming word, and number of syllables. Completed two SFA and TUCKING MACHINE OPERATOR sheets for homework when had trouble with word- finding. He stated SFA helped him get the word. Education:Utilized a handout detailing FILER HELPER recommendations/compensatory strategies, specifically focusing on memory, attention, and word-finding. Re- educated on role of the FILER HELPER and overview of the rehab program. Provided [...] was seen on 03/11/2024 for a follow-up FILER HELPER visit. Addressed treatment goals targeting education and [...] hiscognitive- linguistic symptoms. Recommend participation in skilled FILER HELPER services to further train compensatory strategies to bypass current cognitive-linguistic dysfunctions, target the lutheran of prior level of functioning, andaid in [...] you put somethingdown Association: linking old information (longwall headgate operator memory) with new information such as taking medicine with breakfast External memory strategies: Write things down in a marine air ground task force planners or on a calendar Set timers or [...] the word, like playing a game of Blue Perch. Even gesturing with your hands in a [...] mind??? I'll ask you later.?? Adapted from: [email or web address]-[email or web address]/ Patient would benefit from continued FILER HELPER services. Short Term Goals: - Patient will teach back compensatory language strategies with 100% accuracy given minimal cueing. - Patient will teach back compensatory cognitive-linguistic strategies with 100% accuracy given minimal cueing. - Patient will use trained zarfwz-btrvikfh-bolgqcrnk strategies to complete a functional task with [...] and work environments. Plan: - Recommend skilled FILER HELPER services for 1x per week, every other [...] any questions or concerns. Ananya Torres, MS, CCC-FILER HELPER Speech-Language Pathologist Pager # [phone] documented in this encounter Plan of Treatment Not on file documented as of this encounter Visit Diagnoses Diagnosis Cognitive communication deficit documented in this encounter Care Teams Software Test Analyst Relationship Specialty Start Date End Date Dandy [place] [address] PCP - General Internal Medicine 03/11/24 documented as of this encounter
--- OUTSIDE RECORDS SUMMARY | 2024-07-25 10:26 | XMS_ITS | Clinical Summary ---
Author Organization [facility] [place] [address] Care Team Providers Care Gps Field Data Collector Name Role Phone Dandy Hodges Primary Care [...] (10/15/2020): Added automatically from request for surgery [id number] Coronary artery disease 10/15/2020 Overview (10/18/2020): Added automatically from request for surgery [id number] Lichen simplex chronicus 12/13/2015 Spinal stenosis of lumbar region 06/24/2014 CAD (coronary artery disease) 04/07/2011 Overview (04/21/2012): 1. Status post PCI with Cypher CHANELL x 2 in 2002 and 2003 to the RCA 2. Status post PCI with Vision 3.5 x 18 BMS post dilated to 4.0 Knee injuries 04/07/2011 Hyperlipidemia 04/07/2011 Hypertension 04/07/2011 Encounters Date Type Department Care Team Description 05/13/2024 [place] [phone] Lorena Harp 05/07/2024 [place] [phone] Lorena Harp from Last 3 Months Social History Tobacco [...] 03/26/2024 4:01 PM EDT Plan of Treatment Health Maintenance Due Date Last Done Comments CT Colonography 1961 Colonoscopy 1961 Colorectal Cancer Screening 1961 FIT DNA 1961 FIT 1961 Sigmoidoscopy (10 year) with FIT yearly 1961 Sigmoidoscopy 1960 HIV screen 1979 Hepatitis C Screening 1979 Pneumococcal Vaccine: At-Ris k 5-64yrs (1 of 2 - PCV) 02/24/1980 Tetanus/Diphtheria/Pertussis Vaccines (1 - Tdap) 02/24/1980 Zoster vaccine (1 of 2) 2011 Advance Directive 02/24/2016 RSV Vaccine (1 - Risk 60-74 years 1-dose series) 2021 Diabetes Screening (HgbA1C o r Glucose) 10/20/2023 10/19/2020, 04/08/2011, 04/08/2011 Covid-19 Vaccine (1 - season) 2024 Influenza (Flu) vaccine (1 o f 1 - Influenza standard series) 03/23/2024 Procedures Procedure Name Priority Date/Time Associated Diagnosis Comments HC VENIPUNCTURE STAT 10/19/2020 8:18 AM EDT from Last 3 Months or Most Recently Relevant to Health Maintenance Results * (ABNORMAL) BMP w/fasting Glucose (10/19/2020 8:18 AM EDT) [facility] Signature Glucose Fasting 164(H) 65 - 99 mg/dL [facility] Comment: ?Fasting* Glucose Interpretive Criteria Normal [...] of Diabetes Mellitus, Position Statement from the [place] Diabetes Association. ??Diabetes Care, Volume 33, Supplement 1, Jul 2009 Blood Urea Nitrogen 14 10 - 20 mg/dL [facility] Creatinine 0.73(L) 0.80 - 1.50 mg/dL [facility] Sodium 136 135 - 145 mmol/L [facility] Potassium 4.3 3.5 - 5.0 mmol/L [facility] Comment: Please note: ??Patients with WBC >100,000 may have falsely elevated Potassium levels. ??For accurate Potassium quantification in these patients send serum separator tube (gold top) for subsequent determinations. ??Contact the Clinical Chemistry Laboratory if there are any questions. Chloride 101 98 - 107 mmol/L [facility] Carbon Dioxide 23 22 - 31 mmol/L [facility] Anion Gap 12 5 - 15 mmol/L [facility] Calcium 9.6 8.5 - 10.5 mg/dL [facility] Est Glomerular Filtration Rate 102 >=60 mL/min/1. 73 m?? [facility] Comment: This patient? s estimated glomerular [...] In Lab Earnest Aguilera MD CHEMISTRY ORDERABLES [facility] [place] [address] from Last 3 Months or Most Recently [...] is based on Patients wishes. Care Teams Gps Field Data Collector Relationship Specialty Start Date End Date Dandy Hod[place] [address] [place] [address] PCP - General Internal Medicine 03/11/24
--- OUTSIDE RECORDS SUMMARY | 2024-07-25 10:26 | XMS_ITS | Encounter Summary ---
Author Organization [facility] [place] [address] Care Team Providers Care Aviation Technician Aircraft Name Role Phone Андрей Coello MD Primary Care Provider [phone] Reason for Visit * Speech Therapy (Routine) - Authorized Specialty Diagnoses / Procedures Referred By Chin helm Referred To Contact Speech Pathology / Speech Therapy Diagnoses Aphasia RFV aphasia Ronnie Jamil MD [address] [place] [address] [place] [address] [facility] [place] [address] Referral ID Status Reason Start Date Expiration Date Visits Requested Visits Authorized [id number] Authorized Evaluate and Treat 11/22/2023 11/21/2024 100 100 Encounter Details Date Type Department Care Team (Latest Contact Info) Description 02/12/2024 11:00 AM EDT Office [place] [phone] Ananya Torres, PELLETIZER TENDER Cognitive communication deficit Social History Tobacco Use Types Packs/Day Years Used Date Smoking Tobacco: Former Cigarettes Q uit: 10/09/2010 Smokeless Tobacco: Never Sex and Gender Information Value Date Recorded Sex Assigned at Not on file Gender Identity Not on file Sexual Orientation Not on file documented as of this encounter Miscellaneous Notes * Treatment - Therapy - Ananya Torres, PELLETIZER TENDER - 02/12/2024 11:00 AM EDT Speech Therapy [...] was seen on 01/31/2024 for an Outpatient Guqisx-Wvziybuj-Qseekaahp Evaluation. PMHx is significant for CAD (3 [...] work-up of these symptoms. Results of Elias's xtgosa-azgxvgen-oudmpxnoh evaluation reveal the following: Results of standardized [...] wants to get a new one with syfsxck-egys-hcewc slots. Brother is staying with him until [...] 6/6 with minimal cueing. Phonological Components Analysis (FISH CONSERVATIONIST): Phonological Components Analysis is a treatment approach [...] school per patient-report. Education:Utilized a handout detailing PELLETIZER TENDER recommendations/compensatory strategies, specifically focusing on memory, attention, and word-finding. Re- educated on role of the PELLETIZER TENDER and overview of the rehab program. Provided in-depth compensatory strategy training and utilized them in functional activities as described above. At the end of the session Elisa denied outstanding questions or concerns. Secure chat [...] was seen on 02/12/2024 for a follow-up PELLETIZER TENDER visit. Addressed treatment goals targeting education and [...] work-up, if possible. Recommend participation in skilled PELLETIZER TENDER services to further train compensatory strategies to bypass current cognitive-linguistic dysfunctions, target the spiritism of prior level of functioning, andaid in [...] you put somethingdown Association: linking old information (intermediate memory) with new information such as taking medicine with breakfast External memory strategies: Write things down in a materials planner or on a calendar Set timers [...] mind??? I'll ask you later.?? Adapted from: [email or web address]-[email or web address]-[email or web address]/ Patient would benefit from continued PELLETIZER TENDER services. Short Term Goals: - Patient will teach back compensatory language strategies with 100% accuracy given minimal cueing. - Patient will teach back compensatory cognitive-linguistic strategies with 100% accuracy given minimal cueing. - Patient will use trained mkjuih-qcqmqlss-elyhuahjd strategies to complete a functional task with [...] of Semantic Feature Analysis given minimal cueing. Prize Fighter Goal(s): - Patient will independently demonstrate compensatory and support strategies to improve cognitive-communicative effectiveness in the current living, community, and work environments. Plan: - Recommend skilled PELLETIZER TENDER services for 1x per week, every other [...] questions or concerns. Ananya Torres, MS, [facility]-PELLETIZER TENDER Speech-Language Pathologist Pager # [phone] documented in this encounter Plan of Treatment Not on file documented as of this encounter Visit Diagnoses Diagnosis Cognitive communication deficit documented in this encounter Care Teams Aviation Technician Aircraft Relationship Specialty Start Date End Date Андрей Coello MD PCP - General 12/05/16 03/10/24 documented as of this encounter
--- OUTSIDE RECORDS SUMMARY | 2024-07-25 10:26 | XMS_ITS | Encounter Summary ---
Author Organization [facility] [place] [address] Care Team Providers Care Clearing Distribution Clerk Name Role Phone Dandy Hodges Primary Care Provider + Encounter Details Date Type Department Care Team (Late st Contact Info) Description 04/15/2024 [place] [phone] Lorena Harp Social History Tobacco Use Types [...] on filedocumented in this encounter Care Teams Clearing Distribution Clerk Relationship Specialty Start Date End Date Dandy Hod[place] [address] [place] [address] PCP - General Internal Medicine 03/11/24 documented as of this encounter
--- OUTSIDE RECORDS SUMMARY | 2024-07-25 10:27 | XMS_ITS | Encounter Summary ---
Author Organization [facility] Address [address] [place] [address] Care Team Providers Care Hoistman Name Role Phone Unknown, Provider Primary Care Provider Unava ilable Encounter Details Date Type Department Care Team (Late st Contact Info) Description 02/03/2015 Results Only [facility] [phone] Tate Kinney, DO [address] [place] [phone] Social History Tobacco Use Types Packs/Day Years Used Date Smoking Tobacco: Never Assessed Sex and Gender Information Value Date Recorded Sex Assigned at Not on file Legal Sex Male 18:43 EST Gender Identity Not on file Sexual Orientation [...] taken when reading/interpreting unformatted reports. Name: ? PEREZELIAS ? Accession #: ? [id number] ? : ? 1960 (Age: 54) ??M ? Collect Date: ? 02/03/2015 ? Location: ? [facility] ? Receive Date: ? 02/03/2015 ? Provider: TATE KINNEY DO Copy to: EMANUEL CHEW MD ? Final Pathologic Diagnosis: ANUS, SKIN TAG, EXCISION: - ??Fibroepithelial polyp (skin tag). - ??Negative for dysplasia. See comment. Comment: Special Warfare Boat Operator sections of this case were reviewed at [...] Duarte 02/04/2015 10:56 AM End of Report [facility] 02/03/2015 9:03 EDT 02/03/2015 9:03 EDT us Tate Kinney DO PATHOLOGY ORDERABLES Final Res ult [facility] [address] [place] [address] documented in this encounter Visit Diagnoses Not on filedocumented in this encounter Care Teams Hoistman Relationship Specialty Start Date End Date Unknown, Provider, PCP - General 07/29/10 08/22/22 documented as of this encounter
--- OUTSIDE RECORDS SUMMARY | 2024-07-25 10:27 | XMS_ITS | Encounter Summary ---
Author Organization [facility] [place] [address] Care Team Providers Care Waste Duster Name Role Phone Андрей Espinoza MD Primary Care Provider [phone] Reason for Referral * Surgical (Routine) - Closed Specialty Diagnoses / Procedures Referred By Contac t Referred To Contact Orthopaedic Surgery / Orthopaedics Diagnoses Spinal stenosis of lumbar region Jay Valadez MD [facility] [place] [address] [facility] [place] [address] [address] Referral ID Status Reason Start Date Expiration Date V isits Requested Visits Authorized [id number] Closed Consult, Test & Treat 06/24/2014 06/24/2015 1 1 Reason for Visit * Reason Onset Date Comments Medication Refill 06/24/2014 Encounter Details Date Type Department Care Team (Late st Contact Info) Description 06/24/2014 Refill [place] [phone] Jay Valadez MD [facility] [place] [address] Spinal stenosis of lumbar region Social History [...] claudication documented in this encounter Care Teams Waste Duster Relationship Specialty Start Date End Date Андрей Espinoza MD PCP - General 06/14/10 10/19/14 documented as of this encounter
--- OUTSIDE RECORDS SUMMARY | 2024-07-25 10:27 | XMS_ITS | Encounter Summary ---
Author Organization [facility] Address [address] [place] [address] Care Team Providers Care Scientific Helper Name Role Phone Unavailable Primary Care Provider Unavailabl e Encounter Details Date Type Department Care Team (Late st Contact Info) Description 07/27/2010 Results Only [facility] - [facility] ([facility] [address] [place], [place] [address] Thai Lion MD [address] [place], [place] [phone] Social History Tobacco Use Types Packs/Day Years [...] Document reviewed and electronically signed by: ? ABDELVANI JARQUIN MD ? Report ??Date: 08/01/2010 18:05 ? [...] ? IBD? Gross Description: ? Received in Clydee's fixative labelled Elias Pennington and bx terminal ? ileum are three biopsies which vary in size from 0.2 x 0.1 x 0.1 cm up to 0.5 x 0.3 x 0.3 cm. ??The specimens are submitted intact as (A). ? Received in Hollande's fixative labelled Elias Pennington and bx random Rt colon, incl ascending and transverse are eight biopsies which vary in size from 0.2 x 0.2 x 0.2 cm up to 0.6 x 0.2 x 0.1 cm. ??The specimens are submitted intact as ?? (B1)-(B3). ? Received in Smove's fixative labelled Elias Pennington and bx random Lt colon, incl descending and sigmoid are 12 biopsies which vary in size from 0.3 x 0.2 x 0.2 cm up to 0.4 x 0.4 x 0.2 cm. ??The specimens are submitted intact as ? (C1)-(C4). ? Received in Smove's fixative labelled Elias Pennington and bx random rectum ?? are four biopsies which vary in size from 0.2 x 0.2 x 0.2 cm up to 0.4 x 0.2 x ?? 0.2 cm. ??The specimens are submitted intact as (D1) and (D2). (J.D. ? Tessitore)/mpl ? End of Report ? [facility] 07/27/2010 07/27/2010 20: 08 EST us Thai Lion MD PATHOLOGY ORDERABLES Final Resul t [facility] [address] [place] [address] documented in this encounter Visit Diagnoses Not on filedocumented in this encounter
--- OUTSIDE RECORDS SUMMARY | 2024-07-25 10:27 | XMS_ITS | Encounter Summary ---
Author Organization [facility] [place] [address] Care Team Providers Care Dioramist Name Role Phone Андрей Coello MD Primary Care Provider [phone] Encounter Details Date Type Department Care Team (Late st Contact Info) Description 01/24/2017 Orders Only Cardiology at [address] [phone] Emily Mi PA ASCVD (arteriosclerotic cardiovascular disease) Social History Tobacco [...] Modality Other Narrative 01/27/2017 2:43 AM EDT ?[facility] ? Cardiac Catheterization/Intervention Report ? Patient Name: Pennington, Elias A. ? Procedure Date: 01/26/2017 ? A #: [id number] ? Primary Physician: Nataly Mcginnis ? Case #: [id number] ? File Name: [id number] ? Catheterization Order Number: [id number] ? [facility] ? Final Report [place], [place] ? Patient Name: ? Elias Isaacs. Gorge ?ID#: ?[id number] ? : ?1960 ? Procedure Date: ? [...] presented with: stable angina (w/i 42 days). [place] ?Cardiovascular Society angina class was III. This [...] angiography and left heart ?catheterization. ? Nataly Ahmed, M.D. ? Electronically Signed by: Nataly Mcginnis M.D. ? Report Finalized: 01/26/2017 ??14:32 ? Procedure Note Nataly Mcginnis MD - 01/27/2017 [facility] Cardiac Catheterization/Intervention Report Patient Name: Elias Pennington Procedure Date: 01/26/2017 A #: [id number] Primary Physician: Nataly Mcginnis Case #: [id number] File Name: [id number] Catheterization Order Number: [id number] [facility] FinalReport [place], [place] Patient Name: Elais Pennington ID#:[id number] :1960 Procedure Date: January 26, 2017 Case [...] presented with: stable angina (w/i 42 days). [place] Cardiovascular Society angina class was III. This [...] disease documented in this encounter Care Teams Dioramist Relationship Specialty Start Date End Date Андрей Coello MD PCP - General 12/05/16 03/10/24 documented as of this encounter
--- OUTSIDE RECORDS SUMMARY | 2024-07-25 10:27 | XMS_ITS | Encounter Summary ---
Author Organization [facility] Address [facility] [place] [address] Care Team Providers Care Structural Engineering Drafting Officer Name Role Phone Adam Grey MD Primary Care Provider [phone] Encounter Details Date Type Department Care Team (Latest Contact Info) Description 10/20/2014 10:38 AM EDT - 10/20/2014 11:59 PM EDT Hospital Encounter XRay at [address] [place] [address] Epidural lipomatosis Social History Tobacco Use Types [...] sites documented in this encounter Care Teams Structural Engineering Drafting Officer Relationship Specialty Start Date End Date Adam Grey MD [facility] [address] [place] [address] PCP - General 10/20/14 12/04/16 documented as of this encounter
--- OUTSIDE RECORDS SUMMARY | 2024-07-25 10:27 | XMS_ITS | Encounter Summary ---
Author Organization [facility] Address [facility] [place] [address] Care Team Providers Care Instrumentation Engineering Technician Name Role Phone Андрей Coello MD Primary Care Provider [phone] Encounter Details Date Type Department Care Team (Latest Contact Info) Description 01/26/2017 10:28 AM EDT - 01/26/2017 4:32 PM EDT Hospital Encounter [facility] [place] [address] Nataly Mcgninis MD [facility] [place] [address] [place] [address] ASCVD (arteriosclerotic cardiovascular disease) Discharge Disposition: Home [...] by your doctor, do not take any lhir-jyj-myqrbbh medicinesor herbal preparations without first discussing this with your doctor or pharmacist. There is the possibility of side effects and interactions when these are combined. Follow Up Care Who to call with questions or problems If there are any questions or problems that you think might be related to your cardiac cath or angioplasty, contact the international marketing manager sales correspondence clerk by calling [facility] at . * Patient Instructions* Mirian Moctezuma MD - 01/26/2017 2:13 PM EDT Cardiology Instructions Call your doctor if: Chest pain, dyspnea, pain or swelling in legs occurs. If you have non-emergent questions between now and the time of your follow up appointments: -During 8am-5pm Sunday through Sunday call [phone] to speak with a nurse in the cardiology clinic -All other times call [phone] and ask to speak to the cardiology nurse sales correspondence clerk. MEDICATIONS - you can restart your metformin [...] Primary care provider: Cardiology: Андрей Coello MD [phone] Follow up as planned or as needed. [...] * POCT Glucose (01/26/2017 3:38 PM EDT) [facility] Glucose, POC 145 65 - 199 mg/dL [facility] Comment: Supplemental ranges: <140 mg/dL before meals <180 mg/dL all other times of the day Blood specimen (specimen) 01/26/2017 3:38 PM EDT 01/26/2017 3:38 PM EDT Nataly Mcginnis MD POINT OF CARE TEST O RDERABLES [facility] [place] [address] * EKG 12 Lead (01/26/2017 11:58 AM EDT) Ventricular rate 52 BPM MUSE SYSTEM Atrial Rate 52 BPM MUSE SYSTEM P-R Interval 184 ms MUSE SYSTEM QRS Duration 98 ms MUSE SYSTEM Q-T Interval 436 ms MUSE SYSTEM QTC Calculated (Bezet) 405 ms MUSE SYSTEM Calculated P [place] 45 degrees MUSE SYSTEM Calculated R [place] 6 degrees MUSE SYSTEM Calculated T [place] 23 degrees MUSE SYSTEM INTERPRETATION Sinus bradycardia Otherwise normal ECG When compared with ECG of 10-JUN-2013 10:41, Vent. rate has decreased BY ??27 BPM Confirmed by MD ANDER, EDJORDIN ([id number]) on 01/26/2017 4:07:53 PM MUSE SYSTEM 01/26/2017 11:5 8 AM EDT 01/26/2017 4:07 PM EDT Nataly Mcginnis MD ECG ORDERABLES MUSE SYSTEM * POCT Glucose (01/26/2017 11:28 AM EDT) Glucose, POC 122 65 - 199 mg/dL [facility] Comment: Supplemental ranges: <140 mg/dL before meals <180 mg/dL all other times of the day Blood specimen (specimen) 01/26/2017 11:28 AM EDT 01/26/2017 11:28 AM EDT Naatly Mcginnis MD POINT OF CARE TEST O RDERABLES Performing Organization Address City/[facility] Co de Phone Number [facility] [place] [address] documented in this encounter Visit Diagnoses Diagnosis [...] MD) documented in this encounter Care Teams Instrumentation Engineering Technician Relationship Specialty Start Date End Date Андрей Coello MD PCP - General 12/05/16 03/10/24 documented as of this encounter
--- OUTSIDE RECORDS SUMMARY | 2024-07-25 10:27 | XMS_ITS | Encounter Summary ---
Author Organization [facility] Address [address] [place] [address] Care Team Providers Care Marketing Operations Consultant Name Role Phone Андрей Coello MD Primary Care Provider [phone] Encounter Details Date Type Department Care Team (Late st Contact Info) Description 09/18/2022 Lab Requisition [facility] Pathology & Laboratory Medicine - [facility] [address] [place] [address] [place] [address] [place] [address], [address] [place] [address] Encounter for screening for malignant [...] explore management options, if applicable. 09/22/2022 7:46 [facility] Final Diagnosis A. RECTUM, BIOPSY: - Hyperplastic polyp B. CECUM, BIOPSY: - Tubular adenoma 09/22/2022 7:46 [facility] Attestation By the signature below, the attending physician certifies that they have 1) personally conducted a gross and/or microscopic examination of the described specimen(s), and/or personally interpreted the results of laboratory testing of the described specimen(s), and 2) personally rendered or confirmed the above diagnosis. 09/22/2022 7:46 [facility] at 0746 Clinical History Screening; clinical diagnosis code: Z12.11 09/22/2022 7:46 [facility] Gross Description A. Received [...] B1. RIAN ROLLINS(ASCP) 09/19/2022 7:28 09/22/2022 7:46 [facility] Performing Lab [facility] 09/22/2022 7:46 [facility] Scanned Images 09/22/2022 7:46 [facility] Tissue ENTIRE COLON / Unknown 09/18/2022 7:36 EST 09/18/2022 18:13 EST Tissue specimen (specimen) COLON STRUCTURE / Unknown 09/18/2022 7:36 EST 09/18/2022 18:13 EST us Jim Mccall MD PATHOLOGY ORDERABLES Final Resu lt [facility] [address] [place] [address] documented in this encounter Visit Diagnoses Diagnosis Encounter for screening for malignant neoplasm of colon Special screening for malignant neoplasms, colon documented in this encounter Care Teams Marketing Operations Consultant Relationship Specialty Start Date End Date Андрей Coello MD [address] [facility] [place] [address] PCP - General 08/23/22 documented as of this encounter
--- OUTSIDE RECORDS SUMMARY | 2024-07-25 10:27 | XMS_ITS | Encounter Summary ---
Author Organization [facility] [place] [address] Care Team Providers Care Mash Processing Operator Name Role Phone Adam Grey MD Primary Care Provider [phone] Reason for Visit * Consultation (Routine) - Closed Specialty Diagnoses / Procedures Referred By Contashley t Referred To Contact Dermatology Diagnoses persistent rash right hand Adam Grey MD [facility] [address] [place] [id number] Deepak Olson MD [address] [place] [address], [place] [address] Referral ID Status Reason Start Date Expiration Date V isits Requested Visits Authorized [id number] Closed Connection Center 06/23/2015 06/22/2016 1 1 Encounter Details Date Type Department Care Team (Late st Contact Info) Description 09/02/2015 8:15 AM EST Office Visit Dermatology at [place] [address] [facility] [place] [address] Deepak Olson MD [address] [facility], [place] [address] Lichen simplex chronicus Social History Tobacco Use [...] We discussed the need to stop the qmjp-qjimsej-lbdv cycle. We will advance from creams to [...] chronicus documented in this encounter Care Teams Mash Processing Operator Relationship Specialty Start Date End Date Adam Grey MD [facility] [address] [place] [address] PCP - General 10/20/14 12/04/16 documented as of this encounter
--- OUTSIDE RECORDS SUMMARY | 2024-07-25 10:27 | XMS_ITS | Encounter Summary ---
Author Organization [facility] Address [facility] [place] [address] Care Team Providers Care Communications Specialist Name Role Phone Андрей Espinoza MD Primary Care Provider [phone] Encounter Details Date Type Department Care Team (Late st Contact Info) Description 02/18/2014 Orders [place] [address] Jay Valadez MD [facility] [place] [address] Social History Tobacco Use Types Packs/Day Years [...] is a Non-reportable exam Jay Valadez MD IMG FILM LIBRARY ORD ERABLES documented in this encounter Visit Diagnoses Not on filedocumented in this encounter Care Teams Communications Specialist Relationship Specialty Start Date End Date Андрей Espinoza MD PCP - General 06/14/10 10/19/14 documented as of this encounter
--- OUTSIDE RECORDS SUMMARY | 2024-07-25 10:27 | XMS_ITS | Referral Summary ---
Author Organization [facility] Address [address] [place] [address] Care Team Providers Care Vehicle Check In Clerk Name Role Phone Андрей Coello MD Primary Care Provider [phone] Social History Tobacco Use Types Packs/Day Years Used Date Smoking Tobacco: Never Assessed Sex and Gender Information Value Date Recorded Sex Assigned at Not on file Legal Sex Male 18:43 EST Gender Identity Not on file Sexual Orientation Not on file Plan of Treatment Not on file Insurance [address] [place] [address] [facility] MEDICAID [address] [place] [address] Care Teams Vehicle Check In Clerk Relationship Specialty Start Date End Date Андрей Coello MD [address] [facility], [place] [address] PCP - General 08/23/22
--- OUTSIDE RECORDS SUMMARY | 2024-07-25 10:27 | XMS_ITS | Encounter Summary ---
Author Organization [facility] Address [facility] [place] [address] Care Team Providers Care Rn Gastroenterology Name Role Phone Андрей Coello MD Primary Care Provider [phone] Encounter Details Date Type Department Care Team (Late st Contact Info) Description 01/26/2017 11:30 AM EDT - 01/26/2017 12:30 PM EDT Surgery Equal Opportunity Director [facility] [place] [id number] Nataly Mcginnis MD [facility] [place] [address] CARDIAC CATHETERIZATION Social History Tobacco Use Types [...] by your doctor, do not take any roqp-aos-hqkecmj medicinesor herbal preparations without first discussing this with your doctor or pharmacist. There is the possibility of side effects and interactions when these are combined. Follow Up Care Who to call with questions or problems If there are any questions or problems that you think might be related to your cardiac cath or angioplasty, contact the fruit packer face and fill chemistry quality control analyst by calling [facility] at . * Patient Instructions* Mirian Moctezuma MD - 01/26/2017 2:13 PM EDT Cardiology Instructions Call your doctor if: Chest pain, dyspnea, pain or swelling in legs occurs. If you have non-emergent questions between now and the time of your follow up appointments: -During 8am-5pm Sunday through Sunday call [phone] to speak with a nurse in the cardiology clinic -All other times call [phone] and ask to speak to the condenser winder chemistry quality control analyst. MEDICATIONS - you can restart your metformin on 01/28/17 - keep nitroglycerin with you at all times, if you have chest pain, can take 1 tablet under your tongue every 5 minutes up to 3 tablets. If your pain does not resolve you need to call 121. Return to usual actvities: 1 week, as tolerated. Do not lift anything greater than 1 gallon for milk for 1 week You can shower the day after your procedure, but don't take any tub baths or soak in pools for 1 week after your procedure. Driving: No driving for 48 hours after catheterization. Follow up Appointments: Primary care provider: Cardiology: Андрей Coello MD [phone] Follow up as planned or as needed. [...] * POCT Glucose (01/26/2017 3:38 PM EDT) [facility] Glucose, POC 145 65 - 199 mg/dL [facility] Comment: Supplemental ranges: <140 mg/dL before meals <180 mg/dL all other times of the day Blood specimen (specimen) 01/26/2017 3:38 PM EDT 01/26/2017 3:38 PM EDT Nataly Mcginnis MD POINT OF CARE TEST O RDERABLES [facility] [place] [address] * EKG 12 Lead (01/26/2017 11:58 AM EDT) Pathologist [facility] Ventricular rate 52 BPM MUSE SYSTEM Atrial Rate 52 BPM MUSE SYSTEM P-R Interval 184 ms MUSE SYSTEM QRS Duration 98 ms MUSE SYSTEM Q-T Interval 436 ms MUSE SYSTEM QTC Calculated (Bezet) 405 ms MUSE SYSTEM Calculated P [place] 45 degrees MUSE SYSTEM Calculated R [place] 6 degrees MUSE SYSTEM Calculated T [place] 23 degrees MUSE SYSTEM INTERPRETATION Sinus bradycardia [...] Glucose, POC 122 65 - 199 mg/dL [facility] Comment: Supplemental ranges: <140 mg/dL before meals <180 mg/dL all other times of the day Blood specimen (specimen) 01/26/2017 11:28 AM EDT 01/26/2017 11:28 AM EDT Nataly Mcginnis MD POINT OF CARE TEST O RDERABLES Performing Organization Address City/[facility]/ZIP Co de Phone Number [facility] [place] [phone] documented in this encounter Visit Diagnoses Diagnosis [...] MD) documented in this encounter Care Teams Rn Gastroenterology Relationship Specialty Start Date End Date Андрей Coello MD PCP - General 12/05/16 03/10/24 documented as of this encounter
--- OUTSIDE RECORDS SUMMARY | 2024-07-25 10:27 | XMS_ITS | Encounter Summary ---
Author Organization [facility] Address [facility] [place] [address] Care Team Providers Care Chili Powder Mixer Name Role Phone Sammy Thompson MD Primary Care Provider [phone] Reason for Referral * (Routine) - Closed by system - unspecified Specialty Diagnoses / Procedures Referred By Chin helm Referred To Contact Diagnoses CAD (coronary artery disease) Elias Chapa MD [facility] [place] [address] Referral ID Status Reason Start Date Expiration Date Visits Requested Visits Authorized [id number] Closed by system - unspecified Evaluate and Treat 04/08/2011 10/05/2011 1 1 Encounter Details Date Type Department Care Team (Latest Contact Info) Description 04/07/2011 6:33 AM EDT - 04/08/2011 12:14 PM EDT Hospital Encounter Intermediate [place] [address] Emily Mi PA Friedman, Bruce J, MD CAD (coronary artery disease) Discharge Disposition: Home [...] Everywhere. * CARDIAC CATHETERIZATION: AFTER YOUR VISIT (KOSOVAN) documented in this encounter Medications at Time [...] without c/o chest discomfort.R groin slightly sore. 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 Dc to home orders written. Dc info reviewed including meds. Plavix prescription arranged by joseph [facility].Does not want to participate in outpatient cardiac rehab. Comfortable with dc ,discharged/ * Дмитрий North, RAD - 04/08/2011 10:02 AM EDT Office of Care Management Social Work Syrup Mixer Assistant Note Relevant Information: [facility] am, as pt is being dc'd [...] its not all the way gone Dr Kenney of continued chest pain. Maalox given with relief. * Carolynn Matson RN - 04/07/2011 3:25 PM EDT Elias Pennington was seen today by Cardiac Rehabilitation for: Pt admitted thru SD s/p PCI. Gave pt information packet and phase 2 cardiac rehab information. He participated in Phase 2 in 2003 s/p PCI in [facility] but would like to join again. RN will ambulate pt once he is off bedrest. See notes for activity details. Participation to the outpatient cardiac rehabilitation program at [facility] was discussed. A referral will be sent to the program and the patient will be contacted within 2 weeks. documented in this encounter H&P Notes * Elias Chapa MD - 04/07/2011 10:21 AM EDT Elias Ferny Pennington [id number] 04/07/2011 51 y.o. Admission History and Physical [...] to [facility] possible PCI. Catheterization revealed a [...] 04/10/2011 10:03 AM EDTAssociated Order(s): SCAN DOC: BAKERY PRODUCTS CHECKER documented in this encounter Miscellaneous Notes * Miscellaneous - Provider, Scanning - 04/10/2011 9:52 AM EDT * Discharge Summary - Elias Chapa MD - 04/08/2011 8:31 AM EDT Physician Discharge Summary Patient ID: Elias Pennington [id number] y.o. 1960 Admit date: 04/07/2011 Discharge [...] to [facility] possible PCI. Catheterization revealed a [...] 0.00 - 0.05 (x10(3)/mcL) Patient Instructions: Unchanged PROMOTION PRODUCER meds that are or will be resumed [...] tablet by mouth daily. 30 tablet 0 PROMOTION PRODUCER meds that are DCed or will be [...] (Dr. Thompson) in 1-2 weeks, and your Data Reporting Analyst(Dr. Peña) in 4-6 weeks. Please contact each [...] in this encounter Plan of Treatment Scheduled Orders Name Type Priority Associated Diagnoses [...] IMPLANTABLE DEVICES SCAN 04/10/2011 11:38 AM EDT BAKERY PRODUCTS CHECKER SCAN 04/10/2011 10:03 AM EDT BMP W/FASTING [...] SCAN EXT O RDR/RSLT * SCAN DOC: BAKERY PRODUCTS CHECKER (04/10/2011 10:03 AM EDT) Anatomical Region Laterality [...] MILLENNIUM Monocyte Abs 0.6 0.2 - 1.0 x10(3)/[facility] Eos % 1.6 0.0 - 7.0 % [facility] Eosinophils Abs 0.1 0.0 - 0.5 x10(3)/[facility] Basophil % 0.3 0.0 - 2.0 % [facility] Baso Absolute 0.0 0.0 - 0.2 x10(3)/[facility] Immature Gran % 0.20 0.00 - 0.66 % [facility] Comment: Immature granulocytes(IG's)percentage and absolute count will include metamyelocytes, myelocytes, and promyelocytes. Blood smears from CBCs yielding IG's will be scanned manually for concordance. If this scan disagrees with the automated IG or if promyelocytes are noted, a manual differential will be performed. Immature Gran Absolute 0.01 0.00 - 0.05 x10(3)/[facility] Blood specimen (specimen) 04/08/2011 4:13 AM EDT 04/08/2011 4:23 AM EDT Elias Chapa MD HEMATOLOGY ORDERABLE S [facility] * Hemoglobin A1c (04/08/2011 4:13 AM EDT) Hemoglobin A1c 5.7 4.3 - 6.1 % [facility] Estimated Average Glucose 117 mg/dL [facility] Comment: eAG equivalents for HbA1c percentages: [...] into estimated average glucose values. ??Diabetes Care 2008:31(8):0882-1430. Blood specimen (specimen) 04/08/2011 4:13 AM EDT 04/08/2011 4:23 AM EDT Elias Chapa MD CHEMISTRY ORDERABLES [facility]YN[facility] [employer] * Cardiac Enzymes (04/08/2011 4:13 AM EDT) Troponin-T <0.03 <=0.03 ng/mL [facility] [employer] Comment: 0.03 ng/mL: Represents the 99th percentile upper reference limit for normals. >0.03 ng/mL: Elevated cardiac troponin T level indicative of myocardial damage. Diagnosis of acute, evolving or recent DE requires a typical rise and gradual fall [...] consensus document of the Joint Society of Cardiology/[place] College of Cardiology Committee for the redefinition of myocardial infarction. Journal of the [place] College of Cardiology 2000; 36: 959-969] Creatine Kinase 76 0 - 200 unit/L [facility] [employer] Blood specimen (specimen) 04/08/2011 4:13 AM EDT 04/08/2011 4:23 AM EDT Elias Chapa MD CHEMISTRY ORDERABLES Performing Organization Address [facility] Co de Phone Number LYNNE ROSENBAUM * [...] 4:13 AM EDT 04/08/2011 4:23 AM EDT Elisa Chapa MD HEMATOLOGY ORDERABLE S Performing Organization Address [facility] Co de Phone Number LYNNE ROSENBAUM * (ABNORMAL) Lipid panel (fasting) (04/08/2011 4:13 AM EDT) Cholesterol, Total 139 <=199 mg/dL [facility] M[facility] Comment: Recommendations of the NCEP Adult Treatment Panel for the following risk cutoff thresholds for the [place] population: Desirable: <200 mg/dL Borderline High: 200-239 mg/dL High: > or = 240 mg/dL Triglyceride 114 <=149 mg/dL [facility] MILL[facility]NI[facility] Comment: Reference Range: Normal triglycerides: ??<150 mg/dL Borderline high: ??150-199 mg/dL High: ??200-499 mg/dL Very high: ??>in=925 mg/dL XIOMARA 2001; 285(19):4363-0652 HDL Cholesterol 36(L) >=40 mg/dL [facility] Comment: Reference range: ??Low HDL: ?? < 40 mg/dL ??Normal: ?40-60 mg/dL ??Desirable: > 60 mg/dL XIOMARA 2001; 285(19):0650-4572 LDL Cholesterol 80 <=99 mg/dL [facility] Comment: Reference range: ?? Optimal: ?<100 mg/dL ?? Near Optimal/Above Optimal: ?? 100-129 mg/dL ?? Borderline high: ?130-159 mg/dL ?? High: ? 160-189 mg/dL ?? Very high: ?>od=232 mg/dL XIOMARA 2001: 285(19):2998-9078 Cholesterol/HDL Ratio 3.9 ratio [facility] Comment: A Cholesterol to HDL ratio below 4:1 is desirable. ??Studies suggest that increased CAD risk occurs at ratios above 5 for females and above 6 for men. ? [place] Heart Association ??(http://www.americanheart.org) ? Bev Int Med, 1994; 121:641 ? AM J Med, 1998; 105(1A):48S Blood specimen (specimen) 04/08/2011 4:13 AM EDT 04/08/2011 4:23 AM EDT Elias Chapa MD CHEMISTRY ORDERABLES [facility] * (ABNORMAL) BMP w/fasting Glucose (04/08/2011 [...] of Diabetes Mellitus, Position Statement from the [place] Diabetes Association. ??Diabetes Care, Volume 33, Supplement [...] Chapa MD CHEMISTRY ORDERABLES Performing Organization Address [facility] de Phone Number LYNNE ROSENBAUM * EKG 12 Lead (04/07/2011 7:09 PM EDT) Ventricular rate 63 BPM MUSE SYSTEM Atrial Rate 63 BPM MUSE SYSTEM P-R Interval 194 ms MUSE SYSTEM QRS Duration 88 ms MUSE SYSTEM Q-T Interval 398 ms MUSE SYSTEM QTC Calculated (Bezet) 407 ms MUSE SYSTEM Calculated P [place] 31 degrees MUSE SYSTEM Calculated R [place] 0 degrees MUSE SYSTEM Calculated T [place] 7 degrees MUSE SYSTEM INTERPRETATION Normal sinus rhythm Normal ECG When compared with ECG of 07-APR-2011 10:38, No significant change was found Confirmed by MD Yang Robert ([id number]) on 04/08/2011 7:23:03 AM MUSE SYSTEM 04/07/2011 7:09 PM EDT 04/08/2011 7:23 AM EDT Elias Chapa MD ECG ORDERABLES Performing Organization Address [facility] de Phone Number MUSE SYSTEM * EKG 12 Lead (04/07/2011 10:38 AM EDT) Ventricular rate 63 BPM MUSE SYSTEM Atrial Rate 63 BPM MUSE SYSTEM P-R Interval 178 ms MUSE SYSTEM QRS Duration 88 ms MUSE SYSTEM Q-T Interval 398 ms MUSE SYSTEM QTC Calculated (Bezet) 407 ms MUSE SYSTEM Calculated P [place] 50 degrees MUSE SYSTEM Calculated R [place] 6 degrees MUSE SYSTEM Calculated T [place] 28 degrees MUSE SYSTEM INTERPRETATION Normal sinus rhythm Normal ECG When compared with ECG of 21-APR-2005 15:41, No significant change was found Confirmed by MD Moore Timothy ([id number]) on 04/07/2011 11:48:22 AM MUSE SYSTEM 04/07/2011 10:3 8 AM EDT 04/07/2011 11:48 AM EDT Elias Chapa MD ECG ORDERABLES MUSE SYSTEM * Cardiac Enzymes (04/07/2011 10:02 AM EDT) Troponin-T <0.03 <=0.03 ng/mL [employer] Comment: 0.03 ng/mL: Represents the 99th percentile upper reference limit for normals. >0.03 ng/mL: Elevated cardiac troponin T level indicative of myocardial damage. Diagnosis of acute, evolving or recent DE requires a typical rise and gradual fall [...] consensus document of the Joint Society of Cardiology/[place] College of Cardiology Committee for the redefinition of myocardial infarction. Journal of the [place] College of Cardiology 2000; 36: 959-969] Creatine Kinase 62 0 - 200 unit/L [employer] Blood specimen (specimen) 04/07/2011 10:02 AM EDT 04/07/2011 10:25 AM EDT Elias Chapa MD CHEMISTRY ORDERABLES [employer] documented in this encounter Visit Diagnoses Diagnosis CAD (coronary artery disease) Coronary atherosclerosis of unspecified type of vessel, [place] or graft Knee injuries Injury, other and [...] Routine 0900 (Given - Provid er: Odilon Peña, RONALDO) atorvastatin (LIPITOR) tablet 10 mg (CANCELED) 10 mg, Oral, EVERY EVENING, First dose on Sun04/07/11 at 1700, Until Discontinued, Therapeutic interchange from pravastatin per P&T policy, Routine 1700 (Given - Provider: Tk Novoa, RONALDO) clopidogrel (PLAVIX) tablet 75 mg 75 mg, [...] Allen RN) 0900 (Given - Provider: Odilon Peña, RONALDO) sodium chloride 0.9 % flush 5 mL (CANCELED) 5 mL, Intravenous, EVERY 12 HOURS, First dose on Sun04/07/11 at 0715, Until Discontinued, Day of Surgery (Day of Procedure) 0715 (Given by Other - Provider: Jenny Joseph, RONALDO) Continuous Medication Order 04/06/2011 04/07/2011 04/08/2011 sodium [...] in sodium chloride 0.9% 50 mL infusion (HAND QUILTER) (CANCELED) CONTINUOUS PRN, Starting on Sun04/07/11 at [...] Sun04/07/11 at 0912, Pain, Intra-Operative (Intra-Procedure), Routine 911 (Given - Provider: Jackson Andrade Jr.) fentaNYL 50mcg/mL injection (COMPLETED) ONCE PRN, 1 dose, Starting on Sun04/07/11 at 0949, Until Sun04/07/11 at 0949, Pain, Intra-Operative (Intra-Procedure), Routine 0949 (Given - Provider: Jackson Andrade Jr.) heparin (porcine) injection (COMPLETED) ONCE PRN, 1 dose, Starting on Sun04/07/11 at 0915, Until Sun04/07/11 at 0915, Intra-Operative (Intra-Procedure), Routine 914 (Given - Provider: Elayne Corrigan MD) iohexol (OMNIPAQUE) 350 mg/mL injection (COMPLETED) ONCE PRN, 1 dose, Starting on Sun04/07/11 at 1010, Until Sun04/07/11 at 1010, Per Protocol, Cath (Intra-Procedure), Routine 1010 (Given - Provider: Elayne Corrigan MD) midazolam (VERSED) injection (COMPLETED) ONCE PRN, 1 dose, Starting on Sun04/07/11 at 0854, Until Sun04/07/11 at 0854, Sleep, EP (Intra-Procedure), Routine 853 (Given - Provider: Blake Hamilton, RONALDO) midazolam (VERSED) injection (COMPLETED) ONCE PRN, 1 dose, Starting on Sun04/07/11 at 0905, Until Sun04/07/11 at 0905, Sleep, EP (Intra-Procedure), Routine 904 (Given - Provider: Jackson Andrade Jr.) midazolam [...] Jr.) documented in this encounter Care Teams Chili Powder Mixer Relationship Specialty Start Date End Date Sammy Thompson MD PCP - General 06/14/10 10/19/14 documented as of this encounter
--- OUTSIDE RECORDS SUMMARY | 2024-07-25 10:27 | XMS_ITS | Encounter Summary ---
Author Organization [facility] Address [address] [place] [address] Care Team Providers Care Home Health Physical Therapist Name Role Phone Unknown, Provider Primary Care Provider Андрей Whelan MD Primary Care Provider [phone] Encounter Details Date Type Department Care Team (Late st Contact Info) Description 09/13/2019 Lab Requisition [facility] Pathology & Laboratory Medicine - [facility] [address] [place] [address] Unknown, Provider, Social History Tobacco Use Types [...] H. Pylori Negative Negative 09/16/2019 13:38 EST [facility] Feces SPECIMEN FROM RECTUM / Unknown 09/13/2019 8:35 EST 09/14/2019 15:50 EST Narrative [facility] - 09/16/2019 13:38 EST Results were obtained with the [employer] HpSA Plus EVELINE. us Provider Unknown MICROBIOLOGY - GENERAL ORDER DIETER Final Result [facility] [address] [place] [address] documented in this encounter Visit Diagnoses Not on filedocumented in this encounter Care Teams Home Health Physical Therapist Relationship Specialty Start Date End Date Unknown, Provider, PCP - General 07/29/10 08/22/22 Андрей Coello MD [facility] [place] [address] PCP - General 08/23/22 documented as of this encounter
--- OUTSIDE RECORDS SUMMARY | 2024-07-25 10:27 | XMS_ITS | Encounter Summary ---
Author Organization [facility] Address [facility] [place] [address] Care Team Providers Care Steak Tenderizer Machine Name Role Phone Андрей Espinoza MD Primary Care Provider [phone] Encounter Details Date Type Department Care Team (Late st Contact Info) Description 03/31/2011 Orders Only Cardiology at [address] [phone] Emily Mi PA Social History Tobacco Use Types Packs/Day Years [...] from the Results section by Pankaj Velázquez [[id number]] on 04/03/2011 at ??4:06 PM (File: [id number]) Андрей Wilson MD CARDIAC CATH ORDERAB LES documented in this encounter Visit Diagnoses Not on filedocumented in this encounter Care Teams Steak Tenderizer Machine Relationship Specialty Start Date End Date Андрей Espinoza MD PCP - General 06/14/10 10/19/14 documented as of this encounter
--- OUTSIDE RECORDS SUMMARY | 2024-07-25 10:27 | XMS_ITS | Encounter Summary ---
Author Organization [place] [address] Care Team Providers Care Salt Miner Name Role Phone Андрей Espinoza MD Primary Care Provider [phone] Encounter Details Date Type Department Care Team (Late st Contact Info) Description 06/05/2013 Orders Only Cardiology at [address] [phone] Emily Mi PA ASCVD (arteriosclerotic cardiovascular disease) (Primary Dx) Social History Tobacco Use Types Packs/Day Years Used Date Smoking Tobacco: Former Cigarettes Q uit: 10/09/2010 Sex and Gender Information Value Date Recorded Sex Assigned at Not on file Gender Identity Not on file Sexual Orientation Not on file documented as of this encounter Procedure Notes * Provider, Kathia - 06/10/2013 12:40 PM ESTAssociated Order(s): CARDIAC [...] disease documented in this encounter Care Teams Salt Miner Relationship Specialty Start Date End Date Андрей Espinoza MD PCP - General 06/14/10 10/19/14 documented as of this encounter
--- OUTSIDE RECORDS SUMMARY | 2024-07-25 10:27 | XMS_ITS | Encounter Summary ---
Author Organization [facility] Address [address] [place] [address] Care Team Providers Care Gum Machine Operator Name Role Phone Unknown, Provider Primary Care Provider Unava ilable Encounter Details Date Type Department Care Team (Latest Contact Info) Description 02/03/2015 10:12 EDT - 02/03/2015 23:59 EDT Hospital Encounter [address] [address] Unknown, ProviderMD Discharge Disposition: Home or Self Care Social History Tobacco Use Types Packs/Day Years Used Date Smoking Tobacco: Never Assessed Sex and Gender Information Value Date Recorded Sex Assigned at Not on file Legal Sex Male 18:43 EST Gender Identity Not on file Sexual Orientation Not on file documented as of this encounter Discharge Disposition Disposition Code Departure Means Destination Home or Self Long-Term documented in this encounter Plan of Treatment Not on file documented as of this encounter Visit Diagnoses Not on filedocumented in this encounter Care Teams Gum Machine Operator Relationship Specialty Start Date End Date Unknown, ProviderMD PCP - General 07/29/10 08/22/22 documented as of this encounter
--- OUTSIDE RECORDS SUMMARY | 2024-07-25 10:27 | XMS_ITS | Encounter Summary ---
Author Organization [facility] Address [facility] [place] [address] Care Team Providers Care Physiologist Name Role Phone Андрей Espinoza MD Primary Care Provider [phone] Encounter Details Date Type Department Care Team (Late st Contact Info) Description 06/10/2013 9:35 AM EST - 06/10/2013 10:35 AM EST Surgery [employer] [place] [phone] Андрей Somers MD [facility] [place] [address] CARDIAC CATHETERIZATION Social History Tobacco Use Types [...] by your doctor, do not take any [id number] medicines or herbal preparations without first discussing this with your doctor or pharmacist. There is the possibility of side effect and interactions when these are combined. Follow up Care Who to Call with Questions or Problems If there are any questions or problems that you think might be related to your cardiac cath or angioplasty, contact the floor steward/stewardess infantry weapons crewmember by calling [facility] at . Reviewed Discharge instructions with Patient. [...] with his right hand. Leander Pulido MD Stamps Or Coins Salesperson Pager# [phone] * Maritza Andre RN - 06/10/2013 4:[address] Ron in to see pt and he is holding pressure on radial artery. MM * Rocío Purdy RN - 06/10/2013 3:[address] Sullivan to bedside to assess. Pulse present- wrist achey- Dr Desouza aware also 15:45 Dr Somers in photo lab technician- made aware update given to Maritza HIGGINS - * Jim Mcbride - 06/10/2013 12:18 PM EST ABSORB III SCREEN FAILURE NOTE ABSORB III RANDOMIZED CONTROLLED TRIAL A Clinical Evaluation of Absorb??? BVS, the Everolimus Eluting Bioresorbable Vascular Scaffold in the Treatment of Subjects with de erica [place] Coronary Artery Lesions PI: Paul Goss MD Pager #:[phone] Research Coordinators: Jim Mcbride, BS, BA, CNC OPERATOR PROGRAMMER Pager #:[phone] Gonzales Rhodes RN Pager #: [phone] Purpose: The pivotal trial to support the [place] pre-market approval (PMA) of Absorb BVS. ABSORB III will evaluate the safety and effectiveness of the Absorb BVS System compared to the XIENCE in the treatment of subjects, including those with diabetes mellitus, with ischemic heart disease caused by up to two denovo sleetm[place] coronary artery lesions in separate epicardial vessels. [...] Target lesion(s) must be located in a [place] coronary artery with a visually estimated or quantitatively assessed %DS of >= 50% and < 100% with a RENAY flow of >= 1 and one of the following: stenosis >= 70%, an abnormal functional test (e.g., fractional flow reserve, stress test), unstable angina or post-infarct angina. a. Lesion(s) must be located in a [place]etm[place] coronary artery with RVD by visual estimation of >= 2.50 mm and <= 3.75 mm. b. Lesion(s) must be located in a [place]etm[place] coronary artery with length by visual estimation [...] the Treatment of Subjects with de erica Pechanga Coronary Artery Lesions PI: Paul Goss MD Pager #:[phone] Research Coordinators: Jim Mcbride, BS, BA, CNC OPERATOR PROGRAMMER Pager #:[phone] Gonzales Rhodes RN Pager #: [phone] Purpose: The pivotal trial to support the [place] pre-market approval (PMA) of Absorb BVS. ABSORB III will evaluate the safety and effectiveness of the Absorb BVS System compared to the XIENCE in the treatment of subjects, including those with diabetes mellitus, with ischemic heart disease caused by up to two denovo [place]etm[place] coronary artery lesions in separate epicardial vessels. [...] Pre-Procedural H&P Patient Name: Elias Pennington : [id number] y.o. MR#: [id number] Chief Complaint: chest pain Planned Procedure: Coronary [...] (Bezet) 435 ms MUSE SYSTEM Calculated P [place] 56 degrees MUSE SYSTEM Calculated R [place] 5 degrees MUSE SYSTEM Calculated T [place] 20 degrees MUSE SYSTEM INTERPRETATION Normal sinus [...] Coronary atherosclerosis of unspecified type of vessel, [place] or graft ASCVD (arteriosclerotic cardiovascular disease) Unspecified [...] MD) documented in this encounter Care Teams Physiologist Relationship Specialty Start Date End Date Андрей Espinoza MD PCP - General 06/14/10 10/19/14 documented as of this encounter
--- OUTSIDE RECORDS SUMMARY | 2024-07-25 10:27 | XMS_ITS | Encounter Summary ---
Author Organization [facility] Address [facility] [place] [address] Care Team Providers Care Prosthetics Assistant Name Role Phone Андрей Espinoza MD Primary Care Provider [phone] Encounter Details Date Type Department Care Team (Latest Contact Info) Description 06/10/2013 9:43 AM EST - 06/10/2013 5:25 PM EST Hospital Encounter [place] [phone] Андрей Somers MD [facility] [place] [address] CAD (coronary artery disease); ASCVD (arteriosclerotic cardiovascular [...] by your doctor, do not take any [id number] medicines or herbal preparations without first discussing this with your doctor or pharmacist. There is the possibility of side effect and interactions when these are combined. Follow up Care Who to Call with Questions or Problems If there are any questions or problems that you think might be related to your cardiac cath or angioplasty, contact the ase master mechanic gas distribution plant operator by calling [facility] at . Reviewed Discharge instructions [...] with his right hand. Leander Pulido MD Sewage Plant Supervisor Pager# [phone] * Maritza Andre RN - 06/10/2013 4:[address] Ron in to see pt and he is holding pressure on radial artery. MM * Rocío Purdy RN - 06/10/2013 3:[address] Sullivan to bedside to assess. Pulse present- wrist achey- Dr Desouza aware also 15:45 Dr Somers in label tacker- made aware update given to Maritza HIGGINS - * Rae Jim Diane - 06/10/2013 12:18 PM EST ABSORB III SCREEN FAILURE NOTE ABSORB III RANDOMIZED CONTROLLED TRIAL A Clinical Evaluation of Absorb??? BVS, the Everolimus Eluting Bioresorbable Vascular Scaffold in the Treatment of Subjects with de erica [place] Coronary Artery Lesions PI: Paul Goss MD Pager #:[phone] Research Coordinators: MICHELLE Poole, BA, NURSING HOME SOCIAL WORKER Pager #:[phone] Gonzales Rhodes RN Pager #: [phone] Purpose: The pivotal trial to support the [place] pre-market approval (PMA) of Absorb BVS. ABSORB III will evaluate the safety and effectiveness of the Absorb BVS System compared to the XIENCE in the treatment of subjects, including those with diabetes mellitus, with ischemic heart disease caused by up to two denovo [place] coronary artery lesions in separate epicardial vessels. [...] Target lesion(s) must be located in a [place] coronary artery with a visually estimated or quantitatively assessed %DS of >= 50% and < 100% with a RENAY flow of >= 1 and one of the following: stenosis >= 70%, an abnormal functional test (e.g., fractional flow reserve, stress test), unstable angina or post-infarct angina. a. Lesion(s) must be located in a [place] coronary artery with RVD by visual estimation of >= 2.50 mm and <= 3.75 mm. b. Lesion(s) must be located in a [place] coronary artery with length by visual estimation [...] the Treatment of Subjects with de erica [place] Coronary Artery Lesions PI: Paul Goss MD Pager #:[phone] Research Coordinators: Jim Mcbride, MICHELLE, BA, NURSING HOME SOCIAL WORKER Pager #:[phone] Gonzales Rhodes RN Pager #: [phone] Purpose: The pivotal trial to support the [place] pre-market approval (PMA) of Absorb BVS. ABSORB III will evaluate the safety and effectiveness of the Absorb BVS System compared to the XIENCE in the treatment of subjects, including those with diabetes mellitus, with ischemic heart disease caused by up to two denovo [place] coronary artery lesions in separate epicardial vessels. [...] Pre-Procedural H&P Patient Name: Elias Pennington : [id number] y.o. MR#: [id number] Chief Complaint: chest pain Planned Procedure: Coronary [...] (Bezet) 435 ms MUSE SYSTEM Calculated P [place] 56 degrees MUSE SYSTEM Calculated R [place] 5 degrees MUSE SYSTEM Calculated T [place] 20 degrees MUSE SYSTEM INTERPRETATION Normal sinus rhythm with sinus arrhythmia Normal ECG When compared with ECG of 07-APR-2011 19:09, No significant change was found Confirmed by MD Gume, Kevin ([id number]) on 06/12/2013 7:58:32 AM MUSE SYSTEM 06/10/2013 10:4 1 AM EST 06/12/2013 7:58 AM EST Андрей Somers MD ECG ORDERABLES [place] [facility] documented in this encounter Visit Diagnoses Diagnosis CAD (coronary artery disease) Coronary atherosclerosis of unspecified type of vessel, [place] or graft ASCVD (arteriosclerotic cardiovascular disease) Unspecified [...] MD) documented in this encounter Care Teams Prosthetics Assistant Relationship Specialty Start Date End Date Андрей Espinoza MD PCP - General 06/14/10 10/19/14 documented as of this encounter
--- OUTSIDE RECORDS SUMMARY | 2024-07-25 10:27 | XMS_ITS | Encounter Summary ---
[place] [address] Care Team Providers Care Boiler Operator Name Role Phone Sammy Thompson MD Primary Care Provider [phone] Encounter Details Date Type Department Care Team (Late st Contact Info) Description 04/07/2011 8:00 AM EDT - 04/07/2011 9:00 AM EDT Surgery Hazardous [place] [phone] Elias Chapa MD CARDIAC CATHETERIZATION Social History Tobacco Use Types [...] Everywhere. * CARDIAC CATHETERIZATION: AFTER YOUR VISIT (CZECH) documented in this encounter Medications at Time [...] without c/o chest discomfort.R groin slightly sore. Locksmith here to see and discharge. Dc to home orders written. Dc info reviewed including meds. [place] [facility].Does not want to participate in outpatient cardiac rehab. Comfortable with dc ,discharged/ * Дмитрий North MSW - 04/08/2011 10:02 AM EDT Office of Care Management Social Work Watch Electrician Note Relevant Information: JOSEPH paged by [facility] Sat am, as pt is being dc'd on Plavix, says he has no $. I met w/pt, who says he has Cigna rx coverage, but cannot afford copay, as he is out of work and just filled all his other rx before coming to [facility]. Pt's is coming to pick him up today. Assessment: I noted [facility] can either cover cost of Cigna copay or the month's Plavix; Pt is expected to be on Plavix just 30 days, per Cardi. Plan: I asked pt to have rx card run by [facility], and I spoke with Pharmacy. [facility] [...] Phase 2 in 2003 s/p PCI in [facility] but would like to join again. RN will ambulate pt once he is off bedrest. See notes for activity details. Participation to the outpatient cardiac rehabilitation program at [facility] was discussed. A referral will be sent to the program and the patient will be contacted within 2 weeks. documented in this encounter H&P Notes * Elias Chapa MD - 04/07/2011 10:21 AM EDT Elias Pennington [id number] 04/07/2010 51 y.o. Admission History and Physical [...] ischemia. . Patient was therefore brought to [facility] possible PCI. Catheterization revealed a long 60% [...] 04/10/2011 10:03 AM EDTAssociated Order(s): SCAN DOC: DAYCARE PROVIDER documented in this encounter Miscellaneous Notes * Miscellaneous - Provider, Scanning - 04/10/2011 9:52 AM EDT * Discharge Summary - Elias Chapa MD - 04/08/2011 8:31 AM EDT Physician Discharge Summary Patient ID: Elias Pennington [id number] y.o. 1960 Admit date: 04/07/2011 Discharge [...] ischemia. . Patient was therefore brought to [facility] for [facility] possible PCI. Catheterization revealed a long 60% [...] 0.00 - 0.05 (x10(3)/mcL) Patient Instructions: Unchanged FOOD ASSEMBLER meds that are or will be resumed [...] tablet by mouth daily. 30 tablet 0 FOOD ASSEMBLER meds that are DCed or will be [...] (Dr. Thompson) in 1-2 weeks, and your Corporate Communications Specialist(Dr. Peña) in 4-6 weeks. Please contact each [...] IMPLANTABLE DEVICES SCAN 04/10/2011 11:38 AM EDT DAYCARE PROVIDER SCAN 04/10/2011 10:03 AM EDT BMP W/FASTING GLUCOSE Routine 04/08/2011 4:13 AM EDT DIFFERENTIAL, AUTOMATED Routine 04/08/20 11 4:13 AM EDT CARDIAC ENZYMES ([facility]) Routine 04/08/2011 4:13 AM EDT CBC (WITH DIFF) Routine 04/08/2011 4:13 AM EDT HEMOGLOBIN A1C Routine 04/08/2011 4:13 AM EDT LIPID PANEL (REFLEX DIRECT LDL) Routine 04/08/2011 4:13 AM EDT EKG 12-LEAD STAT 04/07/2011 7:09 PM EDT CAD (coronary artery disease) EKG 12-LEAD Routine 04/07/2011 10:38 AM EDT CAD (coronary artery disease) CARDIAC ENZYMES ([facility]) STAT 04/07/2011 10:02 AM EDT CARDIAC CATHETERIZATION [...] SCAN EXT O RDR/RSLT * SCAN DOC: DAYCARE PROVIDER (04/10/2011 10:03 AM EDT) Anatomical Region Laterality [...] Gran Absolute 0.01 0.00 - 0.05 x10(3)/mcL [facility] Blood specimen (specimen) 04/08/2011 4:13 AM EDT 04/08/2011 4:23 AM EDT Elias Chapa MD HEMATOLOGY ORDERABLE S [facility] * Hemoglobin A1c (04/08/2011 4:13 AM EDT) Hemoglobin A1c 5.7 4.3 - 6.1 % [facility] Estimated Average Glucose 117 mg/dL [facility] Comment: eAG equivalents for HbA1c [...] website: ??http://professional.diabetes.org/glucosecalculator.aspx Reference: Ramakrishna BAZAN, Michelle J, Nomei R, et al. ??Translating the A1C assay into estimated average glucose values. ??Diabetes Care 2008:31(8):1766-1378. Blood specimen (specimen) 04/08/2011 4:13 AM EDT 04/08/2011 4:23 AM EDT Elias Chapa MD CHEMISTRY ORDERABLES Performing Organization Address [facility] de Phone Number LYNNE ROSENBAUM * Cardiac Enzymes (04/08/2011 4:13 AM EDT) Troponin-T <0.03 <=0.03 ng/mL LYNNE FRANKYASMINEIUM Comment: 0.03 ng/mL: Represents the 99th percentile upper reference limit for normals. >0.03 ng/mL: Elevated cardiac troponin T level indicative of myocardial damage. Diagnosis of acute, evolving or recent ND requires a typical rise and gradual fall [...] consensus document of the Joint Society of Cardiology/[place] College of Cardiology Committee for the redefinition of myocardial infarction. Journal of the [place] College of Cardiology 2000; 36: 959-969] Creatine Kinase 76 0 - 200 unit/L LYNNE FRANKYASMINEJUSTIN Blood specimen (specimen) 04/08/2011 4:13 AM EDT 04/08/2011 4:23 AM EDT Elias Chapa MD CHEMISTRY ORDERABLES Performing Organization Address [facility]/ZIP Co de Phone Number LYNNE ROSENBAUM * CBC (with Diff) (04/08/2011 4:13 AM EDT) White Blood Cell 6.3 4.0 - 10.0 x10(3)/mcL CERJENNIFER MILLYASMINEIUM Red Blood Cell 4.94 4.63 - 6.08 [...] EDT Elias Chapa MD HEMATOLOGY ORDERABLE S CERNER MILLENNIUM * (ABNORMAL) Lipid panel (fasting) (04/08/2011 4:13 AM EDT) Cholesterol, Total 139 <=199 mg/dL CERNER MILLENNIUM Comment: Recommendations of the NCEP Adult Treatment Panel for the following risk cutoff thresholds for the [place] population: Desirable: <200 mg/dL Borderline High: 200-239 mg/dL High: > or = 240 mg/dL Triglyceride 114 <=149 mg/dL CERNER MILLENNIUM Comment: Reference Range: Normal triglycerides: ??<150 mg/dL Borderline high: ??150-199 mg/dL High: ??200-499 mg/dL Very high: ??>sj=838 mg/dL XIOMARA 2001; 285(19):3793-1197 HDL Cholesterol 36(L) >=40 mg/dL CER NER MILLENNIUM Comment: Reference range: ??Low HDL: ?? < 40 mg/dL ??Normal: ?40-60 mg/dL ??Desirable: > 60 mg/dL XIOMARA 2001; 285(19):0379-6201 LDL Cholesterol 80 <=99 mg/dL CER NER MILLENNIUM Comment: Reference range: ?? Optimal: ?<100 mg/dL ?? Near Optimal/Above Optimal: ?? 100-129 mg/dL ?? Borderline high: ?130-159 mg/dL ?? High: ? 160-189 mg/dL ?? Very high: ?>mv=285 mg/dL XIOMARA 2001: 285(19):9343-5652 Cholesterol/HDL Ratio 3.9 ratio [facility] Comment: A Cholesterol to HDL ratio below 4:1 is desirable. ??Studies suggest that increased CAD risk occurs at ratios above 5 for females and above 6 for men. ? [place] Heart Association ??(http://www.americanheart.org) ? Bev Int Med, 1994; 121:641 ? AM J Med, 1998; 105(1A):48S Blood specimen (specimen) 04/08/2011 4:13 AM EDT 04/08/2011 4:23 AM EDT Elias Chapa MD CHEMISTRY ORDERABLES Performing Organization Address City/State/[facility] Co de Phone Number [facility] * (ABNORMAL) BMP w/fasting Glucose (04/08/2011 4:13 AM EDT) Glucose Fasting 107(H) 65 - 99 mg/dL [facility] Comment: ?Fasting* Glucose Interpretive Criteria [...] of Diabetes Mellitus, Position Statement from the [place] Diabetes Association. ??Diabetes Care, Volume 33, Supplement [...] Chapa MD CHEMISTRY ORDERABLES Performing Organization Address [facility] de Phone Number LYNNE ROSENBAUM * EKG 12 Lead (04/07/2011 7:09 PM EDT) Ventricular rate 63 BPM MUSE SYSTEM Atrial Rate 63 BPM MUSE SYSTEM P-R Interval 194 ms MUSE SYSTEM QRS Duration 88 ms MUSE SYSTEM Q-T Interval 398 ms MUSE SYSTEM QTC Calculated (Bezet) 407 ms MUSE SYSTEM Calculated P [place] 31 degrees MUSE SYSTEM Calculated R [place] 0 degrees MUSE SYSTEM Calculated T [place] 7 degrees MUSE SYSTEM INTERPRETATION Normal sinus rhythm Normal ECG When compared with ECG of 07-APR-2011 10:38, No significant change was found Confirmed by MD Celia, Mariano ([id number]) on 04/08/2011 7:23:03 AM MUSE SYSTEM 04/07/2011 7:09 PM EDT 04/08/2011 7:23 AM EDT Elias Chapa MD ECG ORDERABLES Performing Organization Address [facility] Phone Number MUSE SYSTEM * EKG 12 Lead (04/07/2011 10:38 AM EDT) Ventricular rate 63 BPM MUSE SYSTEM Atrial Rate 63 BPM MUSE SYSTEM P-R Interval 178 ms MUSE SYSTEM QRS Duration 88 ms MUSE SYSTEM Q-T Interval 398 ms MUSE SYSTEM QTC Calculated (Bezet) 407 ms MUSE SYSTEM Calculated P [place] 50 degrees MUSE SYSTEM Calculated R [place] 6 degrees MUSE SYSTEM Calculated T [place] 28 degrees MUSE SYSTEM INTERPRETATION Normal sinus rhythm Normal ECG When compared with ECG of 21-APR-2005 15:41, No significant change was found Confirmed by MD Moore Timothy ([id number]) on 04/07/2011 11:48:22 AM MUSE SYSTEM 04/07/2011 10:3 8 AM EDT 04/07/2011 11:48 AM EDT Elias Chapa MD ECG ORDERABLES MUSE SYSTEM * Cardiac Enzymes (04/07/2011 10:02 AM EDT) Troponin-T <0.03 <=0.03 ng/mL JAVIDJENNIFER MARIEYASMINEJUSTIN Comment: 0.03 ng/mL: Represents the 99th percentile upper reference limit for normals. >0.03 ng/mL: Elevated cardiac troponin T level indicative of myocardial damage. Diagnosis of acute, evolving or recent ND requires a typical rise and gradual fall [...] consensus document of the Joint Society of Cardiology/[place] College of Cardiology Committee for the redefinition of myocardial infarction. Journal of the [place] College of Cardiology 2000; 36: 959-969] Creatine Kinase 62 0 - 200 unit/L LYNNE Astoria RoadJUSTIN Blood specimen (specimen) 04/07/2011 10:02 AM EDT 04/07/2011 10:25 AM EDT Elias Chapa MD CHEMISTRY ORDERABLES Performing Organization Address [facility] Co de Phone Number LYNNE ROSENBAUM documented in [...] in sodium chloride 0.9% 50 mL infusion (SIGNAL FITTER) CONTINUOUS PRN, Starting on Sun04/07/11 at 0942, [...] Routine 1300 (Given - Provider: Tk Novoa, RONALDO)2058 (Given - Provider: Veronica Allen, RONALDO) 0900 (Given - Provider: Odilon Peña RN) [...] in sodium chloride 0.9% 50 mL infusion (SIGNAL FITTER) (CANCELED) CONTINUOUS PRN, Starting on Sun04/07/11 at [...] Jr.) documented in this encounter Care Teams Boiler Operator Relationship Specialty Start Date End Date Sammy Thompson MD PCP - General 06/14/10 10/19/14 documented as of this encounter
--- OUTSIDE RECORDS SUMMARY | 2024-07-25 10:27 | XMS_ITS | Encounter Summary ---
Author Organization [facility] Address [address] [place] [address] Care Team Providers Care Epitaxial Reactor Technician Name Role Phone Unknown, Provider Primary Care Provider Unava ilable Encounter Details Date Type Department Care Team (Late st Contact Info) Description 01/17/2017 Historical Results Only [facility] - Main [address] [address] Toby Song MD [address] [address] Social History Tobacco Use Types Packs/Day [...] METABOLIC PANEL (BMP) (01/17/2017 15:55 EDT) [facility] 13 7 - 18 mg/dL 01/17/2017 17:11 EDT [facility] CALCIUM - [facility] 9.0 8.5 - 10.1 mg/dL 01/17/2017 17:11 [facility] Chloride 105 98 - 107 mEq/L 01/17/2017 17:11 [facility] CO2 Total 27 21 - 32 mEq/L 01/17/2017 17:11 [facility] CREATININE 0.81 0.5 - 1.3 mg/dL 01/17/2017 17:11 [facility] eGFR >60 01/17/2017 17:11 [facility] Comment: Chronic renal impairment is defined as GFR <60 Multiply result by 1.210 for patients. Anion Gap 8 5 - 15 01/17/2017 17:11 [facility] GLUCOSE - [facility] 83 70 - 100 mg/dL 01/17/2017 17:11 [facility] Potassium 4.1 3.5 - 5.0 mEq/L 01/17/2017 17:11 [facility] Sodium 140 135 - 145 mEq/L 01/17/2017 17:11 [facility] 01/17/2017 15:5 5 EDT 01/17/2017 15:55 EDT Toby Song MD CHEMISTRY & BLOOD GAS ORDER DIETER Final Result [facility] * COMPLETE BLOOD COUNT WITH DIFFERENTIAL (AUTO) (01/17/2017 15:55 EDT) ABSOLUTE NEUTROPHIL COUN - CV 4.71 1.7 - 7.0 10e3/ul 01/17/2017 16:45 EDT [facility] BASO # - [facility] 0.03 0.0 - 0.3 10e3/uL 01/17/2017 [facility] - [facility] 0 0 - 2 % 01/17/2017 16:45 [facility] EOS # - CV 0.14 0.05 - 0.5 10e3/uL 01/17/2017 16:45 T [facility] EOS % - [facility] 2 0 - 5 % 01/17/2017 16:45 [facility] GRAN % - [facility] 61 40 - 80 % 01/17/2017 16:45 [facility] HEMATOCRIT - [facility] 42.5 36.0 - 52.0 % 01/17/2017 16:45 [facility] HEMOGLOBIN - [facility] 13.9 13.7 - 17.5 g/dl 01/17/2017 16:45 [facility] IG# - [facility] 0.01 0 - 0.07 10e3/uL 01/17/2017 16:45 [facility] IG% - [facility] 0.1 0 - 0.9 % 01/17/2017 16:45 [facility] LYMPH # - [facility] 2.41 0.9 - 2.9 10e3/uL 01/17/2017 16:45 [facility] LYMPH% - [facility] 31 20 - 40 % 01/17/2017 16:45 [facility] MEAN CORPUSCULAR HGB - [facility] 27.5 26 - 34 pg 01/17/2017 16:45 [facility] MEAN CORPUSCULAR HGB CONC - [facility] 32.7 31 - 36 g/dL 01/17/2017 16:45 [facility] MEAN CELL VOLUME - [facility] 84.2 77 - 100 fl 01/17/2017 16:45 [facility] MONO # - [facility] 0.38 0.3 - 0.9 10e3/uL 01/17/2017 16:45 [facility] MONO% - [facility] 5 0 - 12 % 01/17/2017 16:45 [facility] PLATELET COUNT 192 150 - 400 10e3/ul 01/17/2017 16:45 [facility] RED BLOOD COUNT - [facility] 5.05 4.3 - 5.7 10e6/ul 01/17/2017 16:45 [facility] RED CELL DISTRI WIDTH - [facility] 13.9 11.8 - 15.6 % 01/17/2017 16:45 [facility] WHITE BLOOD COUNT - [facility] 7.7 3.5 - 10.5 10e3/ul 01/17/2017 16:45 EDT [facility] 01/17/2017 15:5 5 EDT 01/17/2017 15:55 EDT us Toby Song MD HEMATOLOGY & PF4 ORDERABLES Final Result [facility] documented in this encounter Visit Diagnoses Not on filedocumented in this encounter Care Teams Epitaxial Reactor Technician Relationship Specialty Start Date End Date Unknown, Provider, PCP - General 07/29/10 08/22/22 documented as of this encounter
--- OUTSIDE RECORDS SUMMARY | 2024-07-25 10:27 | XMS_ITS | Encounter Summary ---
Author Organization [facility] Address [address] [place] [address] Care Team Providers Care Clinical Nurse Name Role Phone Unavailable Primary Care Provider Unavailabl e Encounter Details Date Type Department Care Team (Late st Contact Info) Description 02/10/2008 Before PRISM Converted Visit (Maple) [facility] Medicine [address] [id number] [place] [address] [place] [id number] Social History Tobacco Use Types Packs/Day Years [...] reading/interpretin g unformatted reports. ? Name: ? CHRIS, ELIAS ? Accession #: ? [id number] ? : ? 1960 (Age: 47) ??M [...] bleeding. ? Gross Description: ? Received in [facility]'s fixative labelled [place] and 1 ??bx antrum are two biopsies measuring 0.2 x 0.2 x 0.2 cm and 0.4 x 0.3 x 0.3 cm. ??The specimens are submitted intact as (A). ? Received in [facility] fixative labelled [place] and 2 ??bx gastric body are two biopsies measuring 0.3 x 0.3 x 0.2 cm and 0.7 x 0.3 x 0.2 cm. ??The specimens are submitted intact as (B). ? Received in [employer]'s fixative labelled [place] and 3 ??bx EG junction is a ? single biopsy measuring 0.2 x 0.2 x 0.2 cm. ??The specimen is submitted intact as (C). ? Received in [facility] fixative labelled [place] and 4 ??bx terminal ileum is a 0.3 x 0.3 x 0.3 cm biopsy. ??The specimen is submitted intact as (D). ? Received in [facility]'s fixative labelled [place] and 5 ??bx random colon are ? five biopsies which vary in size from 0.2 x 0.1 x 0.1 cm up to 0.6 x 0.2 x 0.1 ?? cm. ??The specimens are submitted intact as (E1) and (E2). ? Received in [facility] fixative labelled [place] and 6 ??bx random sigmoid are ?? six biopsies which vary in size from 0.2 x 0.2 x 0.1 cm up to 0.6 x 0.3 x 0.2 ?? cm. ??The specimens are submitted intact as (F1) and (F2). ? Received in [employer]'s fixative labelled [place] and 7 ??bx rectum are four ? biopsies which vary in size from 0.2 x 0.2 x 0.2 cm up to 0.4 x 0.3 x 0.2 cm. ?? The specimens are submitted intact as (G1) and (G2). ??(MIRIAM Burks)/lulik ? End of Report ? [facility] 02/10/2008 02/10/2008 18: 16 EDT us Thai Lion MD PATHOLOGY ORDERABLES Final Resul t [facility] [address] [place] [address] documented in this encounter Visit Diagnoses Not on filedocumented in this encounter
--- OUTSIDE RECORDS SUMMARY | 2024-07-25 10:27 | XMS_ITS | Encounter Summary ---
Author Organization [facility] Address [facility] [place] [address] Care Team Providers Care Sawmilling Operator Name Role Phone Adam Grey MD Primary Care Provider [phone] Encounter Details Date Type Department Care Team (Late st Contact Info) Description 12/13/2015 9:45 AM EDT Office Visit Dermatology at [address] [place] [address] Deepak Olson MD [address], [place] [address] Lichen simplex chronicus Social History Tobacco Use [...] chronicus documented in this encounter Care Teams Sawmilling Operator Relationship Specialty Start Date End Date Adam Grey MD [facility] [address] [place] [address] PCP - General 10/20/14 12/04/16 documented as of this encounter
--- OUTSIDE RECORDS SUMMARY | 2024-07-25 10:27 | XMS_ITS | Encounter Summary ---
Author Organization [facility] Address [facility] [place] [address] Care Team Providers Care Architect Marine Name Role Phone Андрей Coello MD Primary Care Provider [phone] Encounter Details Date Type Department Care Team (Latest Contact Info) Description 10/19/2020 7:47 AM EDT - 10/19/2020 5:25 PM EDT Hospital Encounter [place] [phone] Earnest Aguilera MD [facility] [place] [address] Abnormal stress test; Abnormal stress test Discharge [...] by your doctor, do not take any okok-xuo-bmuizup medicines or herbal preparations without first discussing this with your doctor or pharmacist. There is the possibility of side effect and interactions when these are combined. Follow up Care Who to Call with Questions or Problems If there are any questions or problems that you think might be related to your cardiac cath or angioplasty, contact the log deck tender environmental services lead by calling [facility] at . documented in [...] Glucose, POC 98 65 - 199 mg/dL [facility] Comment: Supplemental ranges: <140 mg/dL before meals <180 mg/dL all other times of the day Blood specimen (specimen) 10/19/2020 4:40 PM EDT 10/19/2020 4:40 PM EDT Earnest Aguilera MD POINT OF CARE TEST O RDERABLES [facility] [place] [address] * POCT Glucose (10/19/2020 2:38 PM EDT) Glucose, POC 110 65 - 199 mg/dL [facility] Comment: Supplemental ranges: <140 mg/dL before meals <180 mg/dL all other times of the day Blood specimen (specimen) 10/19/2020 2:38 PM EDT 10/19/2020 2:38 PM EDT Earnest Aguilera MD POINT OF CARE TEST O RDERABLES Performing Organization Address [facility]/State/ZIP Co de Phone Number [facility] [place] [address] * CARDIAC CATHETERIZATION (10/19/2020 2:14 PM EDT) Anatomical Region Laterality Modality Other Narrative 10/20/2020 2:29 AM EDT ?[facility] ? Cardiac Catheterization/Intervention Report ? Patient Name: PenningtonElias. ? Procedure Date: 10/19/2020 ? A #: [id number] ? Primary Physician: Earnest Aguilera ? Case #: [id number] ? File Name: [id number] ? Catheterization Order Number: [id number] ? [facility] ? Final Report [place], [place] ? Patient Name: ? Elias Pennington ?ID#: ?[id number] ? : ?1960 ? Procedure Date: ? [...] was Elective. 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 Chest pain symptom [...] Procedure Note Earnest Aguilera MD - 10/20/2020 [facility] Cardiac Catheterization/Intervention Report Patient Name: Elias Pennington Procedure Date: 10/19/2020 A #: [id number] Primary Physician: Earnest Aguilera Case #: [id number] File Name: [id number] Catheterization Order Number: [id number] [facility] FinalReport [place], [place] Patient Name: Elias Pennington ID#:[id number] :1960 Procedure Date: October 19, 2020 Case [...] was designated as ASA Class III. The [facility] clinical frailtyscale is 3: Managing Well. [...] procedure was Elective. Theindication for the laborer pole crew visit is worsening angina. Chest pain symptomassessment [...] units of heparin were administered. A total [id number] of Omnipaque were opened, 55cc of Omnipaque were administered [id number] of Omnipaque were wasted. Radiation: Fluoro time [...] EKG 12 Lead (10/19/2020 12:39 PM EDT) [facility] Ventricular rate 66 BPM MUSE SYSTEM Atrial Rate 66 BPM MUSE SYSTEM P-R Interval 194 ms MUSE SYSTEM QRS Duration 88 ms MUSE SYSTEM Q-T Interval 406 ms MUSE SYSTEM QTC Calculated (Bezet) 425 ms MUSE SYSTEM Calculated P [place] 54 degrees MUSE SYSTEM Calculated R [place] 7 degrees MUSE SYSTEM Calculated T [place] 21 degrees MUSE SYSTEM INTERPRETATION Normal sinus rhythm Normal ECG When compared with ECG of 07-HUMBERTO-2017 11:58, No significant change was found Confirmed by MD Tejas, Dandy Hidalgo ([id number]) on 10/19/2020 1:38:12 PM MUSE SYSTEM 10/19/2020 12:3 9 PM EDT 10/19/2020 1:38 PM EDT Earnest Aguilera MD ECG ORDERABLES MUSE SYSTEM * POCT Glucose (10/19/2020 12:25 PM EDT) Pathologist [facility] Glucose, POC 114 65 - 199 mg/dL [facility] Comment: Supplemental ranges: <140 mg/dL before meals <180 mg/dL all other times of the day Blood specimen (specimen) 10/19/2020 12:25 PM EDT 10/19/2020 12:25 PM EDT Earnest Aguilera MD POINT OF CARE TEST O RDERABLES Performing Organization Address City/[facility]/ZIP Co de Phone Number [facility] [place] [address] * Differential, Automated (10/19/2020 8:18 AM EDT) Pathologist [facility] Neutrophil % 70.1 % [facility] Neutrophil Absolute 4.98 1.70 - 6.10 x10(3)/[facility] Lymph % 21.5 % [facility] Lymphocytes Abs 1.5 0.9 - 3.2 x10(3)/[facility] Monocyte % 6.0 % [facility] Monocyte Abs 0.4 0.3 - 0.9 x10(3)/[facility] Eos % 1.3 % [facility] Eosinophils Abs 0.1 0.0 - 0.4 x10(3)/[facility] Basophil % 0.7 % [facility] Baso Absolute 0.0 0.0 - 0.1 x10(3)/[facility] Immature Gran % 0.40 % [facility] Comment: Immature granulocytes(IG's)percentage and absolute count will include metamyelocytes, myelocytes, and promyelocytes. Blood smears from CBCs yielding IG's will be scanned manually for concordance. If this scan disagrees with the automated IG or if promyelocytes are noted, a manual differential will be performed. Immature Gran Absolute 0.03 0.00 - 0.04 x10(3)/[facility] Blood specimen (specimen) 10/19/2020 8:18 AM EDT 10/19/2020 8:26 AM EDT Narrative Resulting Agency Comment Spec In Lab Ramakrishna MODI HEMATOLOGY ORDERABLE S [facility] [place] [address] * Hemogram (10/19/2020 8:18 AM EDT) White Blood Cell 7.1 4.0 - 9.5 x10(3)/[facility] Red Blood Cell 5.11 4.58 - 5.54 x10(6)/[facility] Hemoglobin 14.4 13.7 - 16.5 gm/dL [facility] Hematocrit 43.9 40.5 - 48.5 % [facility] Mean Cell Volume 85.9 82.9 - 93.1 fL [facility] Mean Cell Hemoglobin 28.2 27.5 - 32.1 pg [facility] Mean Cell Hemoglobin Concentration 32.8 32.0 - 35.7 gm/dL [facility] Platelet 167 145 - 357 x10(3)/[facility] RDW Standard Deviation 41.8 36.0 - 45.0 fL [facility] RDW coefficient of variation 13.3 11.4 - 13.8 % [facility] Mean Platelet Volume 10.6 7.6 - 12.9 fL [facility] NRBC% auto 0.0 % [facility] NRBC Absolute 0.000 0.000 - 0.000 x10(3)/mcL [facility] Blood specimen (specimen) 10/19/2020 8:18 AM EDT 10/19/2020 8:26 AM EDT Narrative Resulting Agency Comment Spec In Lab Ramakrishna MODI HEMATOLOGY ORDERABLE S [facility] [place] [address] * (ABNORMAL) BMP w/fasting Glucose (10/19/2020 8:18 AM EDT) Glucose Fasting 164(H) 65 - 99 mg/dL [facility] Comment: ?Fasting* Glucose [...] of Diabetes Mellitus, Position Statement from the [place] [employer]. ??Diabetes Care, Volume 33, Supplement 1, Jul 2009 Blood Urea Nitrogen 14 10 - 20 mg/dL [facility] Creatinine 0.73(L) 0.80 - 1.50 mg/dL [facility] Sodium 136 135 - 145 mmol/L [facility] Potassium 4.3 3.5 - 5.0 mmol/L [facility] Comment: Please note: ??Patients with WBC >100,000 may have falsely elevated Potassium levels. ??For accurate Potassium quantification in these patients send serum separator tube (gold top) for subsequent determinations. ??Contact the Clinical Chemistry Laboratory if there are any questions. Chloride 101 98 - 107 mmol/L [facility] Carbon Dioxide 23 22 - 31 mmol/L [facility] Anion Gap 12 5 - 15 mmol/L [facility] Calcium 9.6 8.5 - 10.5 mg/dL [facility] Est Glomerular Filtration Rate 102 >=60 mL/min/1. 73 m?? [facility] Comment: This patient? [...] In Lab Earnest Aguilera MD CHEMISTRY ORDERABLES [facility] [place] [address] documented in this encounter Visit Diagnoses Diagnosis Abnormal stress test- Primary Other nonspecific abnormal cardiovascular system function study Abnormal stress test Other nonspecific abnormal cardiovascular system function study Coronary artery disease Coronary atherosclerosis of unspecified type of vessel, [place] or graft Abnormal stress test Other nonspecific abnormal cardiovascular system function study Coronary artery disease, angina presence unspecified, unspecified vessel or lesion type, unspecified whether [place] or transplanted heart documented in this encounter [...] Zaragoza) documented in this encounter Care Teams Architect Marine Relationship Specialty Start Date End Date Андрей Coello MD PCP - General 12/05/16 03/10/24 documented as of this encounter
--- OUTSIDE RECORDS SUMMARY | 2024-07-25 10:27 | XMS_ITS | Encounter Summary ---
Author Organization [facility] Address [facility] [place] [address] Care Team Providers Care Rigging Man Name Role Phone Андрей Espinoza MD Primary Care Provider [phone] Reason for Visit * Reason Onset Date Comments Chest Pain 04/06/2011 cath teaching Encounter Details Date Type Department Care Team (Late st Contact Info) Description 04/06/2011 Telephone Cardiology at [address] [phone] Elias Yepez MD [facility] [place] [address] Chest Pain (cath teaching) Social History Tobacco [...] on filedocumented in this encounter Care Teams Rigging Man Relationship Specialty Start Date End Date Андрей Espinoza MD PCP - General 06/14/10 10/19/14 documented as of this encounter
--- OUTSIDE RECORDS SUMMARY | 2024-07-25 10:27 | XMS_ITS | Encounter Summary ---
Author Organization [facility] [place] [address] Care Team Providers Care Brick Tester Name Role Phone Андрей Espinoza MD Primary Care Provider [phone] Encounter Details Date Type Department Care Team (Late st Contact Info) Description 04/07/2011 8:41 AM EDT Anesthesia Event [place] [phone] Marlon Grossman MD Anesthesia Record Procedure Summary Procedure Name Responsible [...] basilic vein (medial side of arm), left; zemq-ahb-atnrrv catheter system; 20 gauge, 1 in length; Arthur Dubose RN; distraction, intradermal injection, tolerated well, appears comfortable; 01/26/17; 1623 01/26/17 1225 by Jose Dubose RN 01/26/17 1623 by Genia Goodman RN (RETIRED) Peripheral IV Line - Single Lumen 01/26/17; 1238; median cubital vein (antecubital fossa), right; xafh-jnb-iyrosz catheter system; 18 gauge, 1 in length; [...] 1235; metacarpal vein (top of hand), left; bmee-uqj-osytmm catheter system; Anatomical Landmarks; 20 gauge; jacoby; [...] on filedocumented in this encounter Care Teams Brick Tester Relationship Specialty Start Date End Date Андрей Espinoza MD PCP - General 06/14/10 10/19/14 documented as of this encounter
--- OUTSIDE RECORDS SUMMARY | 2024-07-25 10:27 | XMS_ITS | Encounter Summary ---
Author Organization [facility] Address [facility] [place] [address] Care Team Providers Care Home Service Demonstrator Name Role Phone Adam Grey MD Primary Care Provider Reason for Referral * Physical Therapy (Routine) - Specialty Diagnoses / Procedures Referred By Contac t Referred To Contact Physical Therapy Diagnoses Epidural lipomatosis Larry Anderson MD [facility] [place] [address] Referral ID Status Reason Start Date Expiration Date V isits Requested Visits Authorized [id number] Evaluate and Treat 10/20/2014 04/18/2015 12 12 Reason for Visit * Reason Comments Low Back Pain Bilateral Leg Pain Encounter Details Date Type Department Care Team (Late st Contact Info) Description 10/20/2014 9:15 AM EDT Office Visit [facility] [place] [phone] Larry Anderson MD [facility] [place] [address] Epidural lipomatosis Discharge Disposition: Home Social History [...] core muscle strengthening. I discussed the functional shinto program with him, but he lives too far away and does not think that this would be feasible. He is, however, interested in physical therapy and I gave him a prescription for this. Twenty-five minutes of this 45-minute visit were spent in direct snkq-ng-bmiv counseling. documented in this encounter Plan of [...] sites documented in this encounter Care Teams Home Service Demonstrator Relationship Specialty Start Date End Date Adam Grey MD [facility] [address] [place] [address] PCP - General 10/20/14 12/04/16 documented as of this encounter
--- OUTSIDE RECORDS SUMMARY | 2024-07-25 10:27 | XMS_ITS | Encounter Summary ---
Author Organization [facility] Address [facility] [place] [address] Care Team Providers Care Union Laborer Name Role Phone Андрей Espinoza MD Primary Care Provider [phone] Encounter Details Date Type Department Care Team (Late st Contact Info) Description 06/11/2013 Notes Only Cardiology at [address] [phone] Leander Pulido MD [facility] [place] [address] Social History Tobacco Use Types Packs/Day Years [...] discomfort in his wrist. Leander Pulido MD Educational Administrator Pager# [phone] 06/11/2013 documented in this encounter Plan of Treatment Not on file documented as of this encounter Visit Diagnoses Not on filedocumented in this encounter Care Teams Union Laborer Relationship Specialty Start Date End Date Андрей Espinoza MD PCP - General 06/14/10 10/19/14 documented as of this encounter
--- OUTSIDE RECORDS SUMMARY | 2024-07-25 10:27 | XMS_ITS | Encounter Summary ---
Author Organization [facility] [place] [address] Care Team Providers Care Bilingual Call Center Representative Name Role Phone Андрей Coello MD Primary Care Provider Encounter Details Date Type Department Care Team (Late st Contact Info) Description 10/15/2020 [place] [address] Jeannette Vang PA [facility] [place] [address] Abnormal stress test Social History Tobacco Use [...] study documented in this encounter Care Teams Bilingual Call Center Representative Relationship Specialty Start Date End Date Андрей Coello MD PCP - General 12/05/16 03/10/24 documented as of this encounter
--- OUTSIDE RECORDS SUMMARY | 2024-07-25 10:27 | XMS_ITS | Encounter Summary ---
Author Organization [facility] [place] [address] Care Team Providers Care P D Driver Name Role Phone Андрей Espinoza MD Primary Care Provider [phone] Reason for Visit * Reason Onset Date Comments Other 06/05/2013 CATH WORK UP Encounter Details Date Type Department Care Team (Late st Contact Info) Description 06/05/2013 Telephone Cardiology at [address] [phone] Lila Mccall Other (CATH WORK UP) Social [...] - 06/05/2013 4:36 PM EST Name: Elias Ferny Gorge Referring Doctor:SANDOVAL Procedure Date: May AT 10:30 Diagnosis:ANGINAF Diabetic Y/N, meds: N Coumadin present Y/N:N IV Dye or Contrast Allergy Y/N:N Hx: scanned Order status: Done Patient will be expecting phone teaching call LILA MCCALL 06/05/2013 documented in this encounter Plan of Treatment Not on file documented as of this encounter Visit Diagnoses Not on filedocumented in this encounter Care Teams P D Driver Relationship Specialty Start Date End Date Андрей Espinoza MD PCP - General 06/14/10 10/19/14 documented as of this encounter
--- OUTSIDE RECORDS SUMMARY | 2024-07-25 10:27 | XMS_ITS | Encounter Summary ---
Author Organization [facility] Address [facility] [place] [address] Care Team Providers Care Conservator Artifacts Name Role Phone Андрей Espinoza MD Primary Care Provider [phone] Encounter Details Date Type Department Care Team (Late st Contact Info) Description 06/03/2014 Orders [place] [phone] Jay Valadez MD [facility] [place] [address] Social History Tobacco Use Types Packs/Day Years [...] on filedocumented in this encounter Care Teams Conservator Artifacts Relationship Specialty Start Date End Date Андрей Espinoza MD PCP - General 06/14/10 10/19/14 documented as of this encounter
--- OUTSIDE RECORDS SUMMARY | 2024-07-25 10:27 | XMS_ITS | Encounter Summary ---
Author Organization [facility] Address [facility] [place] [address] Care Team Providers Care Bail Bondsman Name Role Phone Андрей Coello MD Primary Care Provider [phone] Encounter Details Date Type Department Care Team (Late st Contact Info) Description 10/15/2020 Orders [place] [phone] Ramakrishna Mera PA [facility] [place] [address] Screening for cardiovascular condition; Abnormal stress test; Coronary artery disease, angina presence unspecified, unspecified vessel or lesion type, unspecified whether [place] or transplanted heart Social History Tobacco Use [...] unspecified vessel or lesion type, unspecified whether [place] or transplanted heart documented in this encounter Care Teams Bail Bondsman Relationship Specialty Start Date End Date Андрей Coello MD PCP - General 12/05/16 03/10/24 documented as of this encounter
--- OUTSIDE RECORDS SUMMARY | 2024-07-25 10:27 | XMS_ITS | Clinical Summary ---
Author Organization [facility] Address [address] [place] [address] Care Team Providers Care Ruling Technician Name Role Phone Андрей Coello MD Primary Care Provider [phone] Social History Tobacco Use Types Packs/Day Years Used Date Smoking Tobacco: Never Assessed Sex and Gender Information Value Date Recorded Sex Assigned at Not on file Legal Sex Male 18:43 EST Gender Identity Not on file Sexual Orientation Not on file Plan of Treatment Health Maintenance Due Date Last Done Comments Hepatitis C Screen 1960 COVID-19 Vaccine (2023- season) 2024 RSV Immunization ( o r 60+ Years) (1 - 1-dose 75+ series) 02/24/2036 Insurance [address] [place] [address] [facility] MEDICAID Care Teams Ruling Technician Relationship Specialty Start Date End Date Андрей Coello MD [place] [place] [address] [facility] - General 08/23/22
[2024-07-25 16:06] LABS: ALT 53 U/L (16-63); AST 37 U/L (15-37); Albumin 4.2 g/dL (3.4-5.0); Alkaline Phosphatase 112 U/L (46-116); Anion Gap 8.1 mmol/L (3-11); BUN 15 mg/dL (7-18); Bilirubin, Total 1.27 mg/dL (0.2-1.0); CO2 27.9 mmol/L (21.0-32.0); CREATININE 0.8 mg/dL (0.70-1.30); Calcium 9.1 mg/dL (8.5-10.1); Chloride 103 mmol/L (98-107); Estimated GFR 99.44 (mL/min/1.73m2); FREE T4 0.79 ng/dL (0.76-1.46); Glucose 150 mg/dL (74-106); Potassium 4.4 mmol/L (3.5-5.1); Sodium 139 mmol/L (136-145); TSH 3.24 uIU/mL (0.36-3.74); Total Protein 7.1 g/dL (6.4-8.2)
== END 2024-07-25 10:25 | disposition home or self-care (01) ==
LOC: NCHCN 10:24
PROVIDERS: PCP Student in an Organized Health Care Education/Training Program; Visit Provider Student in an Organized Health Care Education/Training Program
DX: R25.1 Tremor, unspecified (principal)
CPT/HCPCS: 80053; 84439; 84443

== ENCOUNTER 2024-10-06 01:28 | Outpatient (CLI) | payer MEDICARE, SELFPAY ==
--- NOTE | 2024-10-06 | DI.CTLCSR_ITS ---
Exam(s) CT CHEST LUNG CANCER SCREEN EXAM: CT CHEST LUNG CANCER SCREEN CLINICAL HISTORY: Z87.891 Personal HX nicotine dependence TECHNIQUE: Imaging Protocol: Axial computed tomography images with coronal and sagittal reformatted images were created and reviewed. Low dose screening protocol. COMPARISON: CT CT CHEST/ABD/PEL W from 07/29/[address] CHEST WO from 10/03/2023 FINDINGS: Tracheobronchial tree: No bronchiectasis or mucus plugging. Mediastinum and Elissa: No dominant adenopathy or fluid collection. Pulmonary parenchyma: No consolidation or dominant measurable mass. No visible emphysematous changes. No significant interstitial changes. Lung Nodules: There are few calcified granulomas. Stable 5 millimeter nodule medial left lower lobe. Pleura: No effusion. No pneumothorax. Heart: The heart is not dilated. Moderate coronary artery calcifications are seen. No pericardial eff usion. Aorta: Thoracic aorta non-dilated. Upper abdomen: Unremarkable. Bones: Prominent flowing endplate osteophytes consistent with DISH. Soft Tissues: Unremarkable. IMPRESSION: No suspicious pulmonary nodules. Lung RADS Cat 2 - Benign Appearance / Behavior: Nodules with a very low likelihood of becoming a clin ically active cancer due to size or lack of growth Lung-RADS 1.0 CATEGORIES: Category 0 - Prior chest CT exam(s) being located for comparison. Category 1 - Annual screening in 12 months. No nodules or definitely benign nodules. Category 2 - Annual screening in 12 months. Benign appearance. Nodules with low likelihood of becomin g active cancer. Category 3 - 6-month follow-up. Probably benign. Short-term follow-up suggested. Nodules with low lik elihood of becoming active cancer. Category 4A - 3-month follow-up and CT/PET if >8 mm in size. Suspicious finding. Findings which requi re additional testing. Category 4B - Findings which require additional testing and tissue sampling. Category 4X - Category 3 or 4 nodules with additional features or imaging findings that increases the suspicion of malignancy. Modifier S- Potentially clinically significant findings (non lung cancer) RADIATION DOSE DELIVERED: !Error Total DLP DATA REPOSITORY: All CT scans at this facility are submitted to the National Radiology Data Registry (NRDR) Dose Index Registry (DIR) with the [employer] (ACR). RADIATION OPTIMIZATION: All CT scans at this facility use at least one of these dose optimization te chniques: automated exposure control; mA and/or kV adjustment per patient size (includes targeted exa ms where dose is matched to clinical indication); or iterative reconstruction.
== END 2024-10-06 01:48 ==
LOC: DI 01:28
PROVIDERS: PCP Student in an Organized Health Care Education/Training Program; Visit Provider Student in an Organized Health Care Education/Training Program
DX: Z87.891 Personal history of nicotine dependence (principal); Z12.2 Encounter for screening for malignant neoplasm of respiratory organs
CPT/HCPCS: 71271

== ENCOUNTER 2025-03-03 07:58 | Outpatient (CLI) | payer MEDICARE, SELFPAY ==
--- NOTE | 2025-03-03 07:45 | RT.EKG_ITS ---
APPROVED REPORT Exam: Resting ECG Reason for Exam: CAD Patient Location: O HR:64 bpm ECG Measurements Heart Rate 64 AXIS OH 215 P 22 QRSd 91 QRS -18 QT 391 T 17 QTc 404 Conclusion Sinus rhythm...normal P axis, V-rate 50- 99 Borderline prolonged OH interval...OH >212, V-rate 50- 90
== END 2025-03-03 07:59 | disposition home or self-care (01) ==
LOC: DI.CARD 07:58
PROVIDERS: PCP Student in an Organized Health Care Education/Training Program; Visit Provider Internal Medicine Cardiovascular Disease
DX: I25.10 Atherosclerotic heart disease of native coronary artery without angina pectoris (principal)
CPT/HCPCS: 93010

== ENCOUNTER → 2025-03-03 09:47 | Outpatient (BNVA) | payer MEDICARE, SELFPAY | PROVIDERS: PCP Student in an Organized Health Care Education/Training Program; Visit Provider Internal Medicine Cardiovascular Disease | DX: I25.10 Atherosclerotic heart disease of native coronary artery without angina pectoris (principal) | CPT/HCPCS: 99213; 93005 ==

== ENCOUNTER 2025-05-23 16:56 | Emergency (ER) | payer SELFPAY ==
[2025-05-23 17:02] VITALS: BP 164/73; PULSE 91; RESP 30; O2SAT 98
--- NOTE | 2025-05-23 17:15 | DI.RAD_ITS ---
Exam(s) XR PORTABLE CHEST AP EXAM: XR PORTABLE CHEST AP CLINICAL HISTORY: chest pain. TECHNIQUE: 2D digital imaging was performed. COMPARISON: CT CT CHEST LUNG CANCER SCREEN from 10/06/2024 FINDINGS: Single AP portable view. Heart size is upper normal. The mediastinum is not widened. Lungs are clear. No infiltrates nor obvious pleural effusions. Solitary left upper lobe benign granuloma noted, as also evident on CT scan of 10/06/2024.. IMPRESSION: No acute pulmonary findings on this single AP portable view of the chest. DATA REPOSITORY: RADIATION DOSE DELIVERED:
[2025-05-23 17:44] LABS: Abs Immature Grans 0.02 10^3/uL (0.0-0.06); HCT 40.0 % (40.0-50.0); HGB 13.3 g/dL (13.5-17.5); Immature Grans % 0.3 %; MCH 28.0 pg (27.0-33.0); MCHC 33.3 % (32.0-36.0); MCV 84 fL (80-95); MPV 10.3 fL (8.0-11.0); Platelet Count 157 10^3/uL (130-400); RBC 4.75 10^6/uL (4.36-5.78); RDW 13.3 % (11.8-14.1); RDW-SD 41.1 fL; WBC 7.99 10^3/uL (4.4-10.8)
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
[2025-05-23 17:58] LABS: Lipase 37 U/L (<78)
[2025-05-23 18:01] LABS: ALT 53 U/L (16-63); AST 24 U/L (15-37); Albumin 4.1 g/dL (3.4-5.0); Alkaline Phosphatase 117 U/L (46-116); Anion Gap 12.5 mmol/L (3-11); BUN 14 mg/dL (7-18); Bilirubin, Total 0.8 mg/dL (0.2-1.0); CO2 26.5 mmol/L (21.0-32.0); Calcium 8.7 mg/dL (8.5-10.1); Chloride 101 mmol/L (98-107); Glucose 149 mg/dL (74-106); Potassium 3.6 mmol/L (3.5-5.1); Sodium 140 mmol/L (136-145); Total Protein 7.3 g/dL (6.4-8.2)
[2025-05-23] MEDS: Normal Saline - Diluent 50 ML VIAL IJ (18:19)
[2025-05-23] MEDS: Omnipaque 350 MG/ML 100 ML BTL IJ (18:19)
[2025-05-23 19:58] VITALS: BP 144/69; PULSE 74; RESP 16; TEMP 36.5; O2SAT 98
[2025-05-23] MEDS: oxyCODONE 5 MG TAB PO (20:07)
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
== END 2025-05-23 20:18 | disposition home or self-care (01) ==
PROVIDERS: Emergency Provider Physician Assistant; PCP Student in an Organized Health Care Education/Training Program
DX: S22.32XA Fracture of one rib, left side, initial encounter for closed fracture (principal); X58.XXXA Exposure to other specified factors, initial encounter
CPT/HCPCS: 99284; 99285; 74177; 80053; 83690; 86850; 86900; 86901; 71045; 71260; 85025; J3490

== ENCOUNTER 2025-06-22 20:59 | Outpatient (REF) | payer MEDICARE, SELFPAY | END 2025-06-22 21:00 | disposition home or self-care (01) | LOC: NCHCN 20:59 | PROVIDERS: PCP Student in an Organized Health Care Education/Training Program; Visit Provider Student in an Organized Health Care Education/Training Program | DX: E11.9 Type 2 diabetes mellitus without complications (principal) | CPT/HCPCS: 82043; 82570 ==

== ENCOUNTER 2025-07-03 08:16 | Outpatient (CLI) | payer MEDICARE, SELFPAY ==
[2025-07-03 09:13] LABS: TSH 4.15 uIU/mL (0.55-4.78)
== END 2025-07-03 08:17 | disposition home or self-care (01) ==
LOC: LBO 08:16
PROVIDERS: PCP Student in an Organized Health Care Education/Training Program; Visit Provider Student in an Organized Health Care Education/Training Program
DX: E03.9 Hypothyroidism, unspecified (principal)
CPT/HCPCS: 36415; 84439; 84443